=== PATIENT | male | born 1950 | race Caucasian/White ===

== ENCOUNTER 2022-06-23 16:21 | Observation (INO) | payer OTHER, SELFPAY ==
[2022-06-23] VITALS (28 sets, daily range): BP systolic 83–140; BP diastolic 47–69; PULSE 49–76; RESP 16; TEMP 36.7–36.9; O2SAT 92–99; BMI 19.8
--- NOTE | 2022-06-23 17:21 | CRLHL7_ITS ---
For Patients: As a result of the Cures Act, medical imaging exams and procedure reports are released immediately into your electronic medical record. You may view this report before your referring provider. If you have questions, please contact your health care provider. INDICATION: Pain TECHNIQUE: Three views left knee COMPARISON: None available FINDINGS: No definite acute fracture or dislocation. Minimal degenerative changes. Moderate-sized joint effusion. Severe arterial calcifications. 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 IMPRESSION: Moderate-sized knee joint effusion. Dictated by Ricky Parker MD @ 06/23/2022 6:35:11 PM (Electronically Signed)
[2022-06-23] MEDS: 0.9 % SODIUM CHLORIDE 1000 ml 1,000 ML IV (17:48)
[2022-06-23 17:57] LABS: Basophils Absolute Auto 0.02 K/uL (0.00-0.30); Basophils Percent Auto 0.3 % (0.0-3.0); Eosinophils Absolute Auto 0.05 K/uL (0.00-0.50); Eosinophils Percent Auto 0.9 % (0.0-7.0); Hematocrit 30.9 % (37.0-53.0); Hemoglobin* 10.2 gm/dL (13.5-17.5); Immature Granulocytes Abs Auto 0.01 K/uL (0.00-0.30); Immature Granulocytes Pct Auto 0.2 %; Lymphocytes Absolute Auto 1.36 K/uL (0.90-2.90); Lymphocytes Percent Auto 23.2 % (20-44); Mean Corpuscular HGB Conc 33 gm/dL (32-36); Mean Corpuscular Hemoglobin 34 pg (26-34); Mean Corpuscular Volume 103 fL (80-100); Monocytes Percent Auto 7.5 % (0.0-11.0); Neutrophils Absolute Auto 3.98 K/uL (1.7-7.0); Neutrophils Percent Auto 67.9 % (42.0-72.0); Platelet Count* 165 K/uL (140-440); RDW Coefficient of Variation % 15.7 % (11.5-15.5); Slide Review Reflex No; White Blood Count* 5.86 K/uL (4.50-11.00)
[2022-06-23 18:21] LABS: Chloride* 105 mmol/L (96-114); Potassium* 3.7 mmol/L (3.6-5.1); Sodium* 131 mmol/L (135-149)
[2022-06-23 18:24] LABS: Blood Urea Nitrogen* 10 mg/dL (7-30); Carbon Dioxide* 23 mmol/L (20-32); Creatinine* 1.2 mg/dL (0.5-1.5); Estimated Glomerular Filt Rate 65 ml/min; Ethanol* 0.08 % (0.01-0.03)
[2022-06-23 18:25] LABS: Calcium* 7.9 mg/dL (8.4-10.6); Glucose* 74 mg/dL (60-115)
--- NOTE | 2022-06-23 20:05 | ED.LOWEXIN ---
HPI - Extremity Injury (Lower) General Date Seen: 06/23/22 Chief Complaint: Extremity Pain/Injury, Lower Stated Complaint: Leg/Knee Injury Time Seen by Provider: 06/23/22 16:21 Source: patient Mode of arrival: wheelchair Limitations: no limitations History of Present Illness HPI Narrative: Patient is a 71-year-old gentleman presents here after he fell yesterday, he did kind of a splayed out while he was walking around, at the best times uses a walker to get around or a cane, he notices that he cannot bear weight on his left knee today, or any walking around he has noticed it swollen also. He has no previous history knee pain but he has a history of bad neuropathy in his feet and overall weakness, with history of falls quite often. He presents now for help, denies any other injury to his head neck or shoulders, only to his left lower leg MD complaint: knee injury and fall Onset (ago): day(s) Type of Injury: blunt Place: street/outdoors Severity: moderate Relieving factors: nothing Exacerbating factors: weight bearing, movement and palpation Context: fall Associated symptoms: snap/pop sensation and unable to bear weight Other symptoms: none Related Data Home Medications Medication Instructions Recorded Confirmed acetaminophen 500 mg tablet 1,000 mg PO TID 06/23/22 06/23/22 (Tylenol Extra Strength) Allergies Allergy/AdvReac Type Severity Reaction Status Date / Time No Known Drug Allergies Allergy Verified 06/23/22 16:43 Review of Systems Status of ROS: Reports: 10 or more systems reviewed and unremarkable except as noted in History and below PFSH PFS Social History Smoking Status: Current every day smoker What tobacco products do you use: cigarettes Do you use any of these nicotine containing products: None Second hand tobacco smoke exposure: No How often do you have a drink containing alcohol: 4 or more times a week How many standard drinks containing alcohol do you have on a typical day: 5 or 6 How often do you have six or more drinks on one occasion: Daily or almost daily AUDIT-C Alcohol total score: 10 Non-prescribed substance use: marijuana (any form) service: Yes Exam Narrative: Exam Narrative: On examination a little bit disheveled very thin gentleman but otherwise pleasant, pupils equal round reactive, neck is supple, chest is clear heart sounds are normal no evidence of injury over his head or neck, chest says wheezes noted bilaterally on expiration consistent with the COPD, he does tell me he is a smoker times 40 years. His heart sounds no clicks murmurs or gallops his abdomen is soft, there is no masses or guarding, his left hip moves for full range of motion, his right knee is very swollen he has range of motion from 0 at extension to approximately 30?, he is very sore with any sort of stress on the medial collateral ligament, the lateral seems normal, 2+ effusion is noted, nontender patella is noted popliteal fossa is nontender, he has scrape along his left ramon, that is nonsuturable, pulses are decreased bilaterally in his lower extremities to 1+, and there is some mild swelling noted. He was seemingly hypotensive on her 1st check here, and I reviewed he had been here in 2017 in the talked also about how he always is hypotensive any tells me whenever they check his blood pressures he is. Const: Vital Signs, click to edit/add: Vital Signs - 24 hr 06/23/22 16:38 06/23/22 17:41 06/23/22 17:45 Temperature 98.1 F Pulse Rate 49 L 50 L Pulse Rate [Right Pulse Oximeter] 58 L Respiratory Rate 16 Blood Pressure Blood Pressure [Le ft Upper Arm] 83/47 L Pulse Oximetry 98 98 99 Oxygen Delivery Me thod Room Air 06/23/22 18:00 06/23/22 18:01 06/23/22 18:15 Temperature Pulse Rate 51 L 50 L 51 L Pulse Rate [Right Pulse Oximeter] Respiratory Rate Blood Pressure 115/60 Blood Pressure [Le ft Upper Arm] Pulse Oximetry 96 95 97 Oxygen Delivery Me thod 06/23/22 18:30 06/23/22 18:32 06/23/22 18:45 Temperature Pulse Rate 52 L 57 L 56 L Pulse Rate [Right Pulse Oximeter] Respiratory Rate Blood Pressure 122/58 L Blood Pressure [Le ft Upper Arm] Pulse Oximetry 97 92 97 Oxygen Delivery Me thod 06/23/22 19:00 Temperature Pulse Rate 61 Pulse Rate [Right Pulse Oximeter] Respiratory Rate Blood Pressure Blood Pressure [Le ft Upper Arm] Pulse Oximetry 96 Oxygen Delivery Me thod Documenting provider has reviewed patient's vital signs: yes Course Reevaluation(s) Reevaluation #1: I saw the patient, discussed with him the fact that I do not think without bearing weight in the fact uses a walker at home he is going to be able to go home, I do think he has an acute internal derangement of his knee, the x-ray showed that there was some chondrocalcinosis, effusion, and a little agusto off the medial side which I suspect is the tear with a medial collateral ligament is a cannot rule out ACL tear also. I do think that he will need to come in with a knee immobilizer, and then likely transition to a penitentiary, his I just do not think he will be able to care for himself, we did give him some Percocet here, called the inpatient doctor and spoke to her. Dr. garcía accepted him, Vital Signs Vital signs: Initial Vital Signs Temperature 98.1 F 06/23/22 16:38 Temperature Source Oral 06/23/22 16:38 Pulse Rate 58 L 06/23/22 16:38 Pulse Rhythm Regular 06/23/22 16:38 Pulse Strength 3+ Normal 06/23/22 16:38 Respiratory Rate 16 06/23/22 16:38 Blood Pressure 83/47 L 06/23/22 16:38 Blood Pressure Mean 59 06/23/22 16:38 Blood Pressure Position Sitting 06/23/22 16:38 Pulse Oximetry 98 06/23/22 16:38 Oxygen Delivery Method Room Air 06/23/22 16:38 Vital Signs Temperature 98.1 F 06/23/22 16:38 Pulse Rate 58 L 06/23/22 16:38 Respiratory Rate 16 06/23/22 16:38 Blood Pressure 83/47 L 06/23/22 16:38 Pulse Oximetry 98 06/23/22 16:38 Oxygen Delivery Method Room Air 06/23/22 16:38 Temperature 98.1 F 06/23/22 16:38 Pulse Rate 61 06/23/22 19:00 Respiratory Rate 16 06/23/22 16:38 Blood Pressure 122/58 L 06/23/22 18:32 Pulse Oximetry 96 06/23/22 19:00 Oxygen Delivery Method Room Air 06/23/22 16:38 MDM - Extremity Injury (Lower) Differential Diagnosis Differential diagnosis: Likely ankle sprain and strain, acute internal derangement of knee and fracture of femur Medical Records Attestation: I reviewed the patient's medical records. Lab Data Attestation: I reviewed the patient's lab results. Labs: Lab Results 06/23/22 Range/Units 17:45 WBC 5.86 (4.50-11.00) K/uL RBC 3.00 L (4.30-5.90) m/uL Hgb 10.2 L (13.5-17.5) gm/dL Hct 30.9 L (37.0-53.0) % MCV 103 H (80-100) fL MCH 34 (26-34) pg MCHC 33 (32-36) gm/dL RDW Coeff of Nancy 15.7 H (11.5-15.5) % Plt Count 165 (140-440) K/uL Neut % (Auto) 67.9 (42.0-72.0) % Lymph % (Auto) 23.2 (20-44) % Gray % (Auto) 7.5 (0.0-11.0) % Eos % (Auto) 0.9 (0.0-7.0) % Baso % (Auto) 0.3 (0.0-3.0) % Neut # (Auto) 3.98 (1.7-7.0) K/uL Lymph # (Auto) 1.36 (0.90-2.90) K/uL Gray # (Auto) 0.40 (0.00-0.90) K/UL Eos # (Auto) 0.05 (0.00-0.50) K/uL Baso # (Auto) 0.02 (0.00-0.30) K/uL Sodium 131 L (135-149) mmol/L Potassium 3.7 (3.6-5.1) mmol/L Chloride 105 (96-114) mmol/L Carbon Dioxide 23 (20-32) mmol/L BUN 10 (7-30) mg/dL Creatinine 1.2 (0.5-1.5) mg/dL Estimated GFR 65 ml/min Glucose 74 (60-115) mg/dL Calcium 7.9 L (8.4-10.6) mg/dL Ethyl Alcohol 0.08 H (0.01-0.03) % Discharge Plan Discharge Clinical Impression: Acute internal derangement of knee, Neuropathy, Acute hyponatremia Patient Disposition: Admitted As Inpatient Condition: Stable
[2022-06-23] MEDS: OxyCODONE/APAP 5-325 TABLET 1 TAB PO (20:21)
[2022-06-23 20:24] LABS: SARS PCR* Negative SARS-CoV-2 (Negative)
--- NOTE | 2022-06-23 21:52 | P.IMHP_ITS ---
Hospitalist- H&P: HPI History of Present Illness Time Seen by Provider: 21:53 Date Seen: 06/23/22 Chief complaint: Leg/Knee Injury Narrative: Robbie Gage is a 71 year old male who hurt his right knee last night. He was walking to his [place]ep from the bar at 10pm when he stepped off the curb and went down to the ground. His right knee felt totally numb at the time. His girlfriend and another person helped get him up into his Jeep and then into his house. Knee swelled and looked red/purple. Pain shoots right down his ramon. He also has a couple of scrapes on his leg. He denies hitting his head or losing conciousness. Has difficulty getting around, even with walker. Can't walk more than a block at baseline. Review of Systems Status of ROS: Reports: 10 or more systems reviewed and unremarkable except as noted in History and below [facility] Medical History (Updated 06/23/22 @ 22:37 by Franchesca Vargas MD) Adrenal adenoma ?D35.00 - Benign neoplasm of unspecified adrenal gland (ICD-10) Cellulitis of penis (~2012) ?N48.22 - Cellulitis of corpus cavernosum and penis (ICD-10) COPD (chronic obstructive pulmonary disease) ?J44.9 - Chronic obstructive pulmonary disease, unspecified (ICD-10) Low back pain ?M54.50 - Low back pain, unspecified (ICD-10) Major depression ?F32.9 - Major depressive disorder, single episode, unspecified (ICD-10) Neuropathy ?G62.9 - Polyneuropathy, unspecified (ICD-10) Prostate cancer ?C61 - Malignant neoplasm of prostate (ICD-10) PTSD (post-traumatic stress disorder) ?F43.10 - Post-traumatic stress disorder, unspecified (ICD-10) Surgical History (Updated 06/23/22 @ 20:52 by Franchesca Vargas MD) H/O radical prostatectomy ?Z90.79 - Acquired absence of other genital organ(s) (ICD-10) History of ankle surgery (~09/04/11) ?Z98.890 - Other specified postprocedural states (ICD-10) Hx of colonoscopy (~2010) ?Z98.890 - Other specified postprocedural states (ICD-10) Hx of tonsillectomy ?Z90.89 - Acquired absence of other organs (ICD-10) Status post osteotomy (~1979) ?Z98.890 - Other specified postprocedural states (ICD-10) Family History (Updated 06/23/22 @ 20:54 by Franchesca Vargas MD) Brother Alcoholism and drug addiction in family Mother Alcoholism and drug addiction in family Throat cancer Sister Obesity Social History (Updated 06/23/22 @ 22:33 by Franchesca Vargas MD) Narrative: Lives with younger sister in a house. Smokes less than a pack of cigarettes per day. Drinks 3-4 beers per day. Had one beer with breakfast this morning (like he usually does). He does not remember the last time he went without alcohol for more than 24 hours. Smokes marijuana for anxiety/depression twice a week. FULL CODE. Highest level of school completed/degree received: 12th grade, no diploma Smoking Status: Current every day smoker What tobacco products do you use: cigarettes Do you use any of these nicotine containing products: None Second hand tobacco smoke exposure: No How often do you have a drink containing alcohol: 4 or more times a week How many standard drinks containing alcohol do you have on a typical day: 5 or 6 How often do you have six or more drinks on one occasion: Daily or almost daily AUDIT-C Alcohol total score: 10 Non-prescribed substance use: marijuana (any form) Non-prescribed substance use details: Use very seldom Caffeine: No service: Yes Meds Home Medications and Allergies Home Medications Medication Instructions Recorded Confirmed Type acetaminophen 500 mg tablet 1,000 mg PO TID 06/23/22 06/23/22 History (Tylenol Extra Strength) Home Medication Comments: Does not know medications. [facility] Allergies Allergy/AdvReac Type Severity Reaction Status Date / Time No Known Drug Allergies Allergy Verified 06/23/22 16:43 Exam Narrative: Exam Narrative: General: No acute distress. Awake alert oriented x3. No tremor. HEENT: Normocephalic atraumatic, pupils equally round and reactive to light and accommodation. Oropharynx clear. Mucous membranes are moist. No cervical lymphadenopathy, thyromegaly or carotid bruits. No JVD. Cardiovascular: Regular rate and rhythm. No murmurs, gallops, or rubs. Chest: No increased work of breathing. Prolonged expiratory phase, clear to auscultation, no crackles or wheezes. Abdomen: Bowel sounds present. Soft, nondistended, nontender. No hepatosplenomegaly or masses. Extremities: I removed the immobilizer and saw that his left knee is swollen, especially medially in tender to palpation in that area as well. Mild erythema without induration over the medial left knee. Linear abrasion extending from just below the left knee to a few inches above the ankle anteriomedially. No erythema or induration or drainage from this. Skin: As above. No jaundice, no pallor, no rashes. Const: Vital Signs, click to edit/add: Vital Signs - 24 hr 06/23/22 16:38 06/23/22 17:41 06/23/22 17:45 Temperature 98.1 F Pulse Rate 49 L 50 L Pulse Rate [Left R adial] Pulse Rate [Right Pulse Oximeter] 58 L Respiratory Rate 16 Blood Pressure Blood Pressure [Le ft Upper Arm] 83/47 L Blood Pressure [Ri ght Arm] Pulse Oximetry 98 98 99 Oxygen Delivery Me thod Room Air 06/23/22 18:00 06/23/22 18:01 06/23/22 18:15 Temperature Pulse Rate 51 L 50 L 51 L Pulse Rate [Left R adial] Pulse Rate [Right Pulse Oximeter] Respiratory Rate Blood Pressure 115/60 Blood Pressure [Le ft Upper Arm] Blood Pressure [Ri ght Arm] Pulse Oximetry 96 95 97 Oxygen Delivery Me thod 06/23/22 18:30 06/23/22 18:32 06/23/22 18:45 Temperature Pulse Rate 52 L 57 L 56 L Pulse Rate [Left R adial] Pulse Rate [Right Pulse Oximeter] Respiratory Rate Blood Pressure 122/58 L Blood Pressure [Le ft Upper Arm] Blood Pressure [Ri ght Arm] Pulse Oximetry 97 92 97 Oxygen Delivery Me thod 06/23/22 19:00 06/23/22 19:01 06/23/22 19:15 Temperature Pulse Rate 61 57 L 56 L Pulse Rate [Left R adial] Pulse Rate [Right Pulse Oximeter] Respiratory Rate Blood Pressure 127/68 Blood Pressure [Le ft Upper Arm] Blood Pressure [Ri ght Arm] Pulse Oximetry 96 98 97 Oxygen Delivery Me thod 06/23/22 19:30 06/23/22 19:32 06/23/22 19:45 Temperature Pulse Rate 56 L 67 72 Pulse Rate [Left R adial] Pulse Rate [Right Pulse Oximeter] Respiratory Rate Blood Pressure 120/59 L Blood Pressure [Le ft Upper Arm] Blood Pressure [Ri ght Arm] Pulse Oximetry 96 96 96 Oxygen Delivery Me thod 06/23/22 20:00 06/23/22 20:02 06/23/22 20:15 Temperature Pulse Rate 76 73 74 Pulse Rate [Left R adial] Pulse Rate [Right Pulse Oximeter] Respiratory Rate Blood Pressure 140/69 H Blood Pressure [Le ft Upper Arm] Blood Pressure [Ri ght Arm] Pulse Oximetry 97 94 95 Oxygen Delivery Me thod 06/23/22 20:30 06/23/22 20:32 06/23/22 20:45 Temperature Pulse Rate 68 70 72 Pulse Rate [Left R adial] Pulse Rate [Right Pulse Oximeter] Respiratory Rate Blood Pressure 119/57 L Blood Pressure [Le ft Upper Arm] Blood Pressure [Ri ght Arm] Pulse Oximetry 94 95 95 Oxygen Delivery Me thod 06/23/22 21:09 06/23/22 21:23 Temperature 98.4 F Pulse Rate Pulse Rate [Left R adial] 57 L Pulse Rate [Right Pulse Oximeter] Respiratory Rate 16 Blood Pressure Blood Pressure [Le ft Upper Arm] Blood Pressure [Ri ght Arm] 113/54 L Pulse Oximetry 99 99 Oxygen Delivery Me thod Room Air Room Air Hospitalist - H&P: Result Labs Labs: Short CBC 06/23/22 Range/Units 17:45 WBC 5.86 (4.50-11.00) K/uL Hgb 10.2 L (13.5-17.5) gm/dL Hct 30.9 L (37.0-53.0) % Plt Count 165 (140-440) K/uL BMP 06/23/22 17:45 Sodium 131 L Potassium 3.7 Chloride 105 Carbon Dioxide 23 BUN 10 Creatinine 1.2 Glucose 74 Calcium 7.9 L Ordering Physician: Carlos Live M.D. Date of Service: 06/23/22 Procedure(s): XR knee LT 3V Accession Number(s): [id number] cc: Carlos Live M.D.; Abimael Rm M.D.~ For Patients: As a result of the 21st Century Cures Act, medical imaging exams and procedure reports are released immediately into your electronic medical record. You may view this report before your referring provider. If you have questions, please contact your health care provider. INDICATION: Pain TECHNIQUE: Three views left knee COMPARISON: None available FINDINGS: No definite acute fracture or dislocation. Minimal degenerative changes. Moderate-sized joint effusion. Severe arterial calcifications. 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 IMPRESSION: Moderate-sized knee joint effusion. Dictated by Ricky Parker MD @ 06/23/2022 6:35:11 PM (Electronically Signed) Assessment and Plan Assessment and plan (1) Acute internal derangement of knee: Status: Acute (2) Fall: Status: Acute (3) Hyponatremia: Problem comment: Mild, asymptomatic. Possibly secondary to alcohol use or SSRI use. Recheck in the morning. Status: Acute (4) COPD (chronic obstructive pulmonary disease): Problem comment: On Albuterol and Symbicort outpatient Status: Acute Plan This is a 71-year-old male who had a fall yesterday evening to which it is likely that alcohol contributed. He injured his left knee and is unable to ambulate. He uses a walker and has poor functional status at baseline, so he may need a long-term facility for rehab. Admit for observation with oral pain medication, PT and OT consults. May also benefit from Ortho taking a look at the plain film. Continue knee immobilizer for the time being. He uses alcohol chronically and has some red flag behaviors such as drinking a beer every morning. Although he says his last beer was this morning, his medical blood alcohol level was still 0.08% by for almost 6:00 p.m. this evening which makes me think that he drinks much more than he is letting on. I have started him on a CIWA protocol. He has mild hyponatremia, but this is asymptomatic. I suspect this is likely at least in part due to alcohol use and may also be secondary to SSRI use and depression. His medications are unclear as he does not know them and [facility] not able to get information at this hour. Will need to reconcile is medications tomorrow. He appears to be at his baseline for respiratory status and I will order p.r.n. DuoNebs until we can get his medications reconciled.
[2022-06-23] MEDS: OXYCODONE 5 MG TABLET PO (22:13)
[2022-06-24] VITALS (8 sets, daily range): BP systolic 104–137; BP diastolic 55–63; PULSE 53–78; RESP 16–18; TEMP 36.5–37; O2SAT 93–100
[2022-06-24] MEDS: OXYCODONE 5 MG TABLET PO ×5 (02:25→20:35)
--- NOTE | 2022-06-24 05:37 | PC.NURSE ---
Shift note: Pt complained of weakness and pain to the knees and unable walk. Uses urinal. Pain has been rated at 10 and PRN Oxycodone given. Vitally stable. Pt had adequate sleep.
[2022-06-24 06:12] LABS: Barbiturate Screen Urine Negative (Negative); Benzodiazepines Screen Urine Negative (Negative); Methadone Screen Urine Negative (Negative); Opiate Screen Urine Negative (Negative); Phencyclidine Screen Urine Negative (Negative); Tricyclic Antidepressant Urine Negative (Negative)
[2022-06-24 06:13] LABS: Amphetamine Screen Urine POSITIVE (Negative); Cannabinoid Screen Urine POSITIVE (Negative); Cocaine Screen Urine POSITIVE (Negative); Methamphetamines Screen Urine POSITIVE (Negative)
[2022-06-24 06:14] LABS: Oxycodone Screen Urine POSITIVE (Negative)
[2022-06-24 07:07] LABS: Chloride* 106 mmol/L (96-114)
[2022-06-24 07:08] LABS: Potassium* 3.8 mmol/L (3.6-5.1); Sodium* 133 mmol/L (135-149)
[2022-06-24 07:10] LABS: Est. Creatinine Clearance* 64.38; Estimated Glomerular Filt Rate 81 ml/min
[2022-06-24 07:11] LABS: Blood Urea Nitrogen* 11 mg/dL (7-30); Calcium* 7.3 mg/dL (8.4-10.6); Carbon Dioxide* 26 mmol/L (20-32); Glucose* 90 mg/dL (60-115)
--- NOTE | 2022-06-24 08:15 | CRLHL7_ITS ---
For Patients: As a result of the Cures Act, medical imaging exams and procedure reports are released immediately into your electronic medical record. You may view this report before your referring provider. If you have questions, please contact your health care provider. Indication: Leg pain Technique: Two views left femur Comparison: Left knee 06/23/2022 Findings: Suprapatellar joint effusion. No fracture. Vascular calcifications. No femoral neck fracture. Postop changes to the prostate. Impression: No sign of acute osseous injury. Dictated by Roberto Caballero MD @ 06/24/2022 9:30:25 AM (Electronically Signed)
--- NOTE | 2022-06-24 08:16 | CRLHL7_ITS ---
For Patients: As a result of the Century Cures Act, medical imaging exams and procedure reports are released immediately into your electronic medical record. You may view this report before your referring provider. If you have questions, please contact your health care provider. Indication: Fall, pain Technique: Two views left tibia and fibula Comparison: Left knee 06/23/2022 Findings: Vascular calcifications. No fracture. Chondrocalcinosis at the knee. Mortise intact. Impression: No sign of acute osseous injury. Dictated by Roberto Caballero MD @ 06/24/2022 9:29:06 AM (Electronically Signed)
[2022-06-24] MEDS: THIAMINE 100 MG TABLET 250 MG PO ×2 (09:24→20:36)
[2022-06-24] MEDS: FOLIC ACID 1 MG TABLET PO (09:24)
[2022-06-24] MEDS: MULTIVITAMIN/MINERALS 1 TABLET 1 TAB PO (09:24)
[2022-06-24] MEDS: SODIUM CHLORIDE 0.9 % (FLUSH) 10 ML SYRINGE 5 ML IVF ×2 (09:25→20:36)
--- NOTE | 2022-06-24 11:40 | CRLHL7_ITS ---
For Patients: As a result of the Century Cures Act, medical imaging exams and procedure reports are released immediately into your electronic medical record. You may view this report before your referring provider. If you have questions, please contact your health care provider. INDICATION: Left knee pain. Fall. Unable to walk. COMPARISON: 06/23/2022 radiographs. TECHNIQUE: CT left knee without contrast. FINDINGS: Lipohemarthrosis. Acute comminuted nondisplaced fracture of the posterior aspect of the tibial plateau at the PCL insertion (series 8, image 176). Chondrocalcinosis. Mild medial compartment joint space narrowing. Subcutaneous edema. Vascular calcifications. IMPRESSION: Acute comminuted fracture of the posterior aspect of the tibial plateau at the PCL insertion which could be due to PCL avulsion fracture. Findings discussed with Dr. Malin at 2:20 PM on 06/24/22. Please note that all CT scans at this facility use dose modulation, iterative reconstruction, and/or weight-based dosing when appropriate to reduce radiation dose to as low as reasonably achievable. Dictated by Roberto Hamilton MD @ 06/24/2022 2:27:12 PM (Electronically Signed)
--- NOTE | 2022-06-24 15:29 | PM.IMPN1 ---
Progress Note: A&P Assessment and plan (1) Tibial plateau fracture, left: Problem details: PCL avulsion fracture. Ortho recommended non weight bearing until this heals. He can stay in a knee immobilizer or bend the knee at 20-30 degrees whenever is more comfortable for him. He needs to follow-up with orthopedics in 7-10 days. Status: Acute (2) Fall: Problem details: He has neuropathy and other factors that make a fall likely. When he has recovered enough from his knee fracture he would likely benefit from physical therapy. Status: Acute (3) Alcohol use disorder: Problem details: He is at high risk for alcohol withdrawal. He is currently on the withdrawal protocol but has not required lorazepam. Status: Acute (4) COPD (chronic obstructive pulmonary disease): Problem details: On Albuterol and Symbicort outpatient Status: Acute Time Spent With Patient Total time spent: 60 minutes over half the time was spent in counseling and coordinating care. Subjective Time Seen by Provider: 15:29 Date Seen: 06/24/22 Interval history: Subjective: Robbie continues to have left-sided knee pain. He is nonweightbearing. He has been taking regular oxycodone for his pain. We did discuss the case with Dr. Casper and ortho recommends nonweightbearing until this heals and follow-up in ortho clinic in 7-10 days. He can be a knee immobilizer or he can keep the knee slightly bent to 20-30 degrees whenever is more comfortable for him. Did discuss with Robbie options for after the hospital. The safest best option for him would be to go to a senior living facility. He adamantly refuses to do that. He says he has a wheelchair at home and a friend who can stay with him. Exam Const: Vital Signs, click to edit/add: Vital Signs - 24 hr 06/23/22 16:38 06/23/22 17:41 06/23/22 17:45 Temperature 98.1 F Pulse Rate 49 L 50 L Pulse Rate [Left R adial] Pulse Rate [Right Pulse Oximeter] 58 L Respiratory Rate 16 Blood Pressure Blood Pressure [Le ft Upper Arm] 83/47 L Blood Pressure [Ri ght Arm] Pulse Oximetry 98 98 99 Oxygen Delivery Me thod Room Air 06/23/22 18:00 06/23/22 18:01 06/23/22 18:15 Temperature Pulse Rate 51 L 50 L 51 L Pulse Rate [Left R adial] Pulse Rate [Right Pulse Oximeter] Respiratory Rate Blood Pressure 115/60 Blood Pressure [Le ft Upper Arm] Blood Pressure [Ri ght Arm] Pulse Oximetry 96 95 97 Oxygen Delivery Al thod 06/23/22 18:30 06/23/22 18:32 06/23/22 18:45 Temperature Pulse Rate 52 L 57 L 56 L Pulse Rate [Left R adial] Pulse Rate [Right Pulse Oximeter] Respiratory Rate Blood Pressure 122/58 L Blood Pressure [Le ft Upper Arm] Blood Pressure [Ri ght Arm] Pulse Oximetry 97 92 97 Oxygen Delivery Al thod 06/23/22 19:00 06/23/22 19:01 06/23/22 19:15 Temperature Pulse Rate 61 57 L 56 L Pulse Rate [Left R adial] Pulse Rate [Right Pulse Oximeter] Respiratory Rate Blood Pressure 127/68 Blood Pressure [Le ft Upper Arm] Blood Pressure [Ri ght Arm] Pulse Oximetry 96 98 97 Oxygen Delivery Al thod 06/23/22 19:30 06/23/22 19:32 06/23/22 19:45 Temperature Pulse Rate 56 L 67 72 Pulse Rate [Left R adial] Pulse Rate [Right Pulse Oximeter] Respiratory Rate Blood Pressure 120/59 L Blood Pressure [Le ft Upper Arm] Blood Pressure [Ri ght Arm] Pulse Oximetry 96 96 96 Oxygen Delivery Al thod 06/23/22 20:00 06/23/22 20:02 06/23/22 20:15 Temperature Pulse Rate 76 73 74 Pulse Rate [Left R adial] Pulse Rate [Right Pulse Oximeter] Respiratory Rate Blood Pressure 140/69 H Blood Pressure [Le ft Upper Arm] Blood Pressure [Ri ght Arm] Pulse Oximetry 97 94 95 Oxygen Delivery Al thod 06/23/22 20:30 06/23/22 20:32 06/23/22 20:45 Temperature Pulse Rate 68 70 72 Pulse Rate [Left R adial] Pulse Rate [Right Pulse Oximeter] Respiratory Rate Blood Pressure 119/57 L Blood Pressure [Le ft Upper Arm] Blood Pressure [Ri ght Arm] Pulse Oximetry 94 95 95 Oxygen Delivery Al thod 06/23/22 21:09 06/23/22 21:23 06/23/22 21:54 Temperature 98.4 F Pulse Rate Pulse Rate [Left R adial] 57 L Pulse Rate [Right Pulse Oximeter] Respiratory Rate 16 Blood Pressure Blood Pressure [Le ft Upper Arm] Blood Pressure [Ri ght Arm] 113/54 L Pulse Oximetry 99 99 [facility] 06/23/22 22:27 06/23/22 22:28 06/23/22 23:12 Temperature 98.4 F 98.4 F Pulse Rate Pulse Rate [Left R adial] 67 67 67 Pulse Rate [Right Pulse Oximeter] Respiratory Rate 16 16 16 Blood Pressure Blood Pressure [Le ft Upper Arm] Blood Pressure [Ri ght Arm] 123/67 123/67 Pulse Oximetry 99 99 [facility] Room Air 06/23/22 23:15 06/24/22 02:52 06/24/22 07:00 Temperature 97.7 F Pulse Rate Pulse Rate [Left R adial] 53 L 61 Pulse Rate [Right Pulse Oximeter] Respiratory Rate 16 16 Blood Pressure Blood Pressure [Le ft Upper Arm] Blood Pressure [Ri ght Arm] 115/62 Pulse Oximetry 99 93 [facility] Room Air 06/24/22 07:00 06/24/22 07:50 06/24/22 07:50 Temperature 97.8 F 97.8 F Pulse Rate Pulse Rate [Left R adial] 61 61 Pulse Rate [Right Pulse Oximeter] Respiratory Rate 16 18 18 Blood Pressure Blood Pressure [Le ft Upper Arm] Blood Pressure [Ri ght Arm] 121/61 121/61 Pulse Oximetry 95 95 95 [facility] Room Air Room Air 06/24/22 11:45 Temperature 97.8 F Pulse Rate Pulse Rate [Left R adial] 65 Pulse Rate [Right Pulse Oximeter] Respiratory Rate 18 Blood Pressure Blood Pressure [Le ft Upper Arm] Blood Pressure [Ri ght Arm] 128/55 L Pulse Oximetry 100 Oxygen Delivery Al thod Room Air Cardiovascular regular rate and rhythm without murmur gallop or rub. Lungs are clear to auscultation bilaterally. Abdomen positive bowel sounds soft nontender. Left leg is tender from the femur to the ankle. It is especially tender over the knee over the patella and the lateral aspects of the knee. There is some significant swelling. There is no redness or warmth. Labs Labs: Laboratory Results - last 24 hr 04/06/23/22 06/24/22 17:45 19:33 05:45 WBC 5.86 RBC 3.00 L Hgb 10.2 L Hct 30.9 L MCV 103 H MCH 34 MCHC 33 RDW Coeff of Nancy 15.7 H Plt Count 165 Neut % (Auto) 67.9 Lymph % (Auto) 23.2 [place] % (Auto) 7.5 Eos % (Auto) 0.9 Baso % (Auto) 0.3 Neut # (Auto) 3.98 Lymph # (Auto) 1.36 [place] # (Auto) 0.40 Eos # (Auto) 0.05 Baso # (Auto) 0.02 Sodium 131 L Potassium 3.7 Chloride 105 Carbon Dioxide 23 BUN 10 Creatinine 1.2 Estimated Creat Clear Estimated GFR 65 Glucose 74 Calcium 7.9 L Urine Opiates Screen Negative Ur Oxycodone Screen POSITIVE A* Urine Methadone Screen Negative Ur Propoxyphene Screen Negative Ur Barbiturates Screen Negative U Tricyclic Antidepress Negative Ur Phencyclidine Scrn Negative Ur Amphetamines Screen POSITIVE A* U Methamphetamines Scrn POSITIVE A* U Benzodiazepines Scrn Negative Urine Cocaine Screen POSITIVE A* U Marijuana (THC) Screen POSITIVE A* Ur Drug Screen Comment See Note Ethyl Alcohol 0.08 H SARS-CoV-2 (PCR) Negative SARS-CoV-2 06/24/22 06:19 WBC RBC Hgb Hct MCV MCH MCHC RDW Coeff of Nancy Plt Count Neut % (Auto) Lymph % (Auto) [place] % (Auto) Eos % (Auto) Baso % (Auto) Neut # (Auto) Lymph # (Auto) [place] # (Auto) Eos # (Auto) Baso # (Auto) Sodium 133 L Potassium 3.8 Chloride 106 Carbon Dioxide 26 BUN 11 Creatinine 1.0 Estimated Creat Clear 64.38 Estimated GFR 81 Glucose 90 Calcium 7.3 L Urine Opiates Screen Ur Oxycodone Screen Urine Methadone Screen Ur Propoxyphene Screen Ur Barbiturates Screen U Tricyclic Antidepress Ur Phencyclidine Scrn Ur Amphetamines Screen U Methamphetamines Scrn U Benzodiazepines Scrn Urine Cocaine Screen U Marijuana (THC) Screen Ur Drug Screen Comment Ethyl Alcohol SARS-CoV-2 (PCR) Imaging CT of the knee: Radiologist's impression: INDICATION: Left knee pain. Fall. Unable to walk. COMPARISON: 06/23/2022 radiographs. TECHNIQUE: CT left knee without contrast. FINDINGS: Lipohemarthrosis. Acute comminuted nondisplaced fracture of the posterior aspect of the tibial plateau at the PCL insertion (series 8, image 176). Chondrocalcinosis. Mild medial compartment joint space narrowing. Subcutaneous edema. Vascular calcifications. IMPRESSION: Acute comminuted fracture of the posterior aspect of the tibial plateau at the PCL insertion which could be due to PCL avulsion fracture. Findings discussed with Dr. Malin at 2:20 PM on 06/24/22. Please note that all CT scans at this facility use dose modulation, iterative reconstruction, and/or weight-based dosing when appropriate to reduce radiation dose to as low as reasonably achievable. Dictated by Roberto Hamilton MD @ 06/24/2022 2:27:12 PM (Electronically Signed)
--- NOTE | 2022-06-24 15:40 | P.ORCN_ITS ---
History of Present Illness HPI Time Seen by Provider: 15:25 Date Seen: 06/24/22 Consult date: 06/24/22 Requesting physician: Jadyn Ayoub Consult reason: joint pain and fracture Chief complaint: Leg/Knee Injury Narrative: Robbie is a pleasant 71 year-old male with left knee pain x 1 day. Patient fell from a standing height yesterday. Today, he complains of severe, diffuse left anterior knee pain. Unable to bear weight. Patient feels most comfortable with his knee in slight flexion (20-23 degrees). At baseline, Robbie uses a walker or a cane. Associated symptoms include: left knee swelling. Denies previous left knee injury. Review of Systems Narrative: Admits: swelling. Denies: chest pain, SOB, fever, chills, numbness/tingling distally. PFSH PFSH Medical History Adrenal adenoma ?D35.00 - Benign neoplasm of unspecified adrenal gland (ICD-10) Alcohol use disorder ?F10.90 - Alcohol use, unspecified, uncomplicated (ICD-10) Cellulitis of penis (~2012) ?N48.22 - Cellulitis of corpus cavernosum and penis (ICD-10) COPD (chronic obstructive pulmonary disease) ?J44.9 - Chronic obstructive pulmonary disease, unspecified (ICD-10) Low back pain ?M54.50 - Low back pain, unspecified (ICD-10) Major depression ?F32.9 - Major depressive disorder, single episode, unspecified (ICD-10) Neuropathy ?G62.9 - Polyneuropathy, unspecified (ICD-10) Prostate cancer ?C61 - Malignant neoplasm of prostate (ICD-10) PTSD (post-traumatic stress disorder) ?F43.10 - Post-traumatic stress disorder, unspecified (ICD-10) Surgical History H/O radical prostatectomy ?Z90.79 - Acquired absence of other genital organ(s) (ICD-10) History of ankle surgery (~09/04/11) ?Z98.890 - Other specified postprocedural states (ICD-10) Hx of colonoscopy (~2010) ?Z98.890 - Other specified postprocedural states (ICD-10) Hx of tonsillectomy ?Z90.89 - Acquired absence of other organs (ICD-10) Status post osteotomy (~1979) ?Z98.890 - Other specified postprocedural states (ICD-10) Family History Brother Alcoholism and drug addiction in family Mother Alcoholism and drug addiction in family Throat cancer Sister Obesity Social History Narrative: Lives with younger sister in a house. Smokes less than a pack of cigarettes per day. Drinks 3-4 beers per day. Had one beer with breakfast this morning (like he usually does). He does not remember the last time he went without alcohol for more than 24 hours. Smokes marijuana for anxiety/depression twice a week. FULL CODE. Highest level of school completed/degree received: 12th grade, no diploma Smoking Status: Current every day smoker What tobacco products do you use: cigarettes Do you use any of these nicotine containing products: None Second hand tobacco smoke exposure: No How often do you have a drink containing alcohol: 4 or more times a week How many standard drinks containing alcohol do you have on a typical day: 5 or 6 How often do you have six or more drinks on one occasion: Daily or almost daily AUDIT-C Alcohol total score: 10 Non-prescribed substance use: marijuana (any form) Non-prescribed substance use details: Use very seldom Caffeine: No service: Yes Meds Home Medications and Allergies Home Medications Medication Instructions Recorded Confirmed Type atenolol 50 mg tablet 25 mg PO DAILY 06/24/22 06/24/22 History celecoxib 100 mg capsule (Celebrex) 100 mg PO BID 06/24/22 06/24/22 History cholecalciferol (vitamin D3) 25 25 mcg PO HS 06/24/22 06/24/22 History mcg (1,000 unit) capsule duloxetine 60 mg capsule,delayed 60 mg PO DAILY 06/24/22 06/24/22 History release folic acid 1 mg tablet 1 mg PO DAILY 06/24/22 06/24/22 History olanzapine 2.5 mg tablet 2.5 mg PO QHS 06/24/22 06/24/22 History omeprazole 20 mg capsule,delayed 40 mg PO BID 06/24/22 06/24/22 History release trazodone 50 mg tablet 150 mg PO QHS 06/24/22 06/24/22 History Allergies Allergy/AdvReac Type Severity Reaction Status Date / Time No Known Drug Allergies Allergy Verified 06/23/22 16:43 Ortho Exam Narrative Exam Narrative: Left knee exam: Mild effusion. A tubigrip was left in place for this exam, per request of the patient. Severe tenderness to light palpation diffusely throughout knee. Pain is well managed with knee in slight flexion (20 degrees). ROM greater than 20 degrees deferred. Ice is being utilized. CMS intact. Const Vital Signs, click to edit/add: Vital Signs - 24 hr 06/23/22 16:38 06/23/22 17:41 06/23/22 17:45 Temperature 98.1 F Pulse Rate 49 L 50 L Pulse Rate [Left Radial] Pulse Rate [Right Pulse Oximeter] 58 L Respiratory Rate 16 Blood Pressure Blood Pressure [Left Upper Arm] 83/47 L Blood Pressure [Right Arm] Pulse Oximetry 98 98 99 Oxygen Delivery Method Room Air 06/23/22 18:00 06/23/22 18:01 06/23/22 18:15 Temperature Pulse Rate 51 L 50 L 51 L Pulse Rate [Left Radial] Pulse Rate [Right Pulse Oximeter] Respiratory Rate Blood Pressure 115/60 Blood Pressure [Left Upper Arm] Blood Pressure [Right Arm] Pulse Oximetry 96 95 97 Oxygen Delivery Method 06/23/22 18:30 06/23/22 18:32 06/23/22 18:45 Temperature Pulse Rate 52 L 57 L 56 L Pulse Rate [Left Radial] Pulse Rate [Right Pulse Oximeter] Respiratory Rate Blood Pressure 122/58 L Blood Pressure [Left Upper Arm] Blood Pressure [Right Arm] Pulse Oximetry 97 92 97 Oxygen Delivery Method 06/23/22 19:00 06/23/22 19:01 06/23/22 19:15 Temperature Pulse Rate 61 57 L 56 L Pulse Rate [Left Radial] Pulse Rate [Right Pulse Oximeter] Respiratory Rate Blood Pressure 127/68 Blood Pressure [Left Upper Arm] Blood Pressure [Right Arm] Pulse Oximetry 96 98 97 Oxygen Delivery Method 06/23/22 19:30 06/23/22 19:32 06/23/22 19:45 Temperature Pulse Rate 56 L 67 72 Pulse Rate [Left Radial] Pulse Rate [Right Pulse Oximeter] Respiratory Rate Blood Pressure 120/59 L Blood Pressure [Left Upper Arm] Blood Pressure [Right Arm] Pulse Oximetry 96 96 96 Oxygen Delivery Method 06/23/22 20:00 06/23/22 20:02 06/23/22 20:15 Temperature Pulse Rate 76 73 74 Pulse Rate [Left Radial] Pulse Rate [Right Pulse Oximeter] Respiratory Rate Blood Pressure 140/69 H Blood Pressure [Left Upper Arm] Blood Pressure [Right Arm] Pulse Oximetry 97 94 95 Oxygen Delivery Method 06/23/22 20:30 06/23/22 20:32 06/23/22 20:45 Temperature Pulse Rate 68 70 72 Pulse Rate [Left Radial] Pulse Rate [Right Pulse Oximeter] Respiratory Rate Blood Pressure 119/57 L Blood Pressure [Left Upper Arm] Blood Pressure [Right Arm] Pulse Oximetry 94 95 95 Oxygen Delivery Method 06/23/22 21:09 06/23/22 21:23 06/23/22 21:54 Temperature 98.4 F Pulse Rate Pulse Rate [Left Radial] 57 L Pulse Rate [Right Pulse Oximeter] Respiratory Rate 16 Blood Pressure Blood Pressure [Left Upper Arm] Blood Pressure [Right Arm] 113/54 L Pulse Oximetry 99 99 99 Oxygen Delivery Method Room Air Room Air 06/23/22 22:27 06/23/22 22:28 06/23/22 23:12 Temperature 98.4 F 98.4 F Pulse Rate Pulse Rate [Left Radial] 67 67 67 Pulse Rate [Right Pulse Oximeter] Respiratory Rate 16 16 16 Blood Pressure Blood Pressure [Left Upper Arm] Blood Pressure [Right Arm] 123/67 123/67 Pulse Oximetry 99 99 Oxygen Delivery Method Room Air Room Air 06/23/22 23:15 06/24/22 02:52 06/24/22 07:00 Temperature 97.7 F Pulse Rate Pulse Rate [Left Radial] 53 L 61 Pulse Rate [Right Pulse Oximeter] Respiratory Rate 16 16 Blood Pressure Blood Pressure [Left Upper Arm] Blood Pressure [Right Arm] 115/62 Pulse Oximetry 99 93 Oxygen Delivery Method Room Air Room Air 06/24/22 07:00 06/24/22 07:50 06/24/22 07:50 Temperature 97.8 F 97.8 F Pulse Rate Pulse Rate [Left Radial] 61 61 Pulse Rate [Right Pulse Oximeter] Respiratory Rate 16 18 18 Blood Pressure Blood Pressure [Left Upper Arm] Blood Pressure [Right Arm] 121/61 121/61 Pulse Oximetry 95 95 95 Oxygen Delivery Method Room Air Room Air Room Air 06/24/22 11:45 Temperature 97.8 F Pulse Rate Pulse Rate [Left Radial] 65 Pulse Rate [Right Pulse Oximeter] Respiratory Rate 18 Blood Pressure Blood Pressure [Left Upper Arm] Blood Pressure [Right Arm] 128/55 L Pulse Oximetry 100 Oxygen Delivery Method Room Air Results Labs Labs: Laboratory Results - last 48 hr 06/23/22 06/23/22 06/24/22 17:45 19:33 05:45 WBC 5.86 RBC 3.00 L Hgb 10.2 L Hct 30.9 L MCV 103 H MCH 34 MCHC 33 RDW Coeff of Nancy 15.7 H Plt Count 165 Neut % (Auto) 67.9 Lymph % (Auto) 23.2 [place] % (Auto) 7.5 Eos % (Auto) 0.9 Baso % (Auto) 0.3 Neut # (Auto) 3.98 Lymph # (Auto) 1.36 [place] # (Auto) 0.40 Eos # (Auto) 0.05 Baso # (Auto) 0.02 Sodium 131 L Potassium 3.7 Chloride 105 Carbon Dioxide 23 BUN 10 Creatinine 1.2 Estimated Creat Clear Estimated GFR 65 Glucose 74 Calcium 7.9 L Urine Opiates Screen Negative Ur Oxycodone Screen POSITIVE A* Urine Methadone Screen Negative Ur Propoxyphene Screen Negative Ur Barbiturates Screen Negative U Tricyclic Antidepress Negative Ur Phencyclidine Scrn Negative Ur Amphetamines Screen POSITIVE A* U Methamphetamines Scrn POSITIVE A* U Benzodiazepines Scrn Negative Urine Cocaine Screen POSITIVE A* U Marijuana (THC) Screen POSITIVE A* Ur Drug Screen Comment See Note Ethyl Alcohol 0.08 H SARS-CoV-2 (PCR) Negative SARS-CoV-2 06/24/22 06:19 WBC RBC Hgb Hct MCV MCH MCHC RDW Coeff of Nancy Plt Count Neut % (Auto) Lymph % (Auto) [place] % (Auto) Eos % (Auto) Baso % (Auto) Neut # (Auto) Lymph # (Auto) [place] # (Auto) Eos # (Auto) Baso # (Auto) Sodium 133 L Potassium 3.8 Chloride 106 Carbon Dioxide 26 BUN 11 Creatinine 1.0 Estimated Creat Clear 64.38 Estimated GFR 81 Glucose 90 Calcium 7.3 L Urine Opiates Screen Ur Oxycodone Screen Urine Methadone Screen Ur Propoxyphene Screen Ur Barbiturates Screen U Tricyclic Antidepress Ur Phencyclidine Scrn Ur Amphetamines Screen U Methamphetamines Scrn U Benzodiazepines Scrn Urine Cocaine Screen U Marijuana (THC) Screen Ur Drug Screen Comment Ethyl Alcohol SARS-CoV-2 (PCR) Diagnostic results Knee CT: report reviewed and image reviewed (Left knee CT dated 06/24/22 shows: an acute comminuted fracture of the posterior aspect of the tibial plateau at the PCL insertion. Also mild-moderate lipohemarthrosis.) Assessment and Plan Assessment and plan (1) Acute internal derangement of knee: Problem comment: Closed treatment of a closed, acute, comminuted, nondisplaced fracture of the tibial plateau. DOI: 06/24/22. Status: Acute Assessment and Plan: - Patient will remain non-weightbearing and utilize his wheelchair daily. Knee immobilizer use as tolerated daily, however Robbie reports his knee is more comfortable in slight flexion. It is okay to remove the knee immobilizer if more comfortable. Pain management per Hospitalist's recommendation. Patient has a strong desire to remain at home. He will likely require outpatient PT and OT. Orthopedics will provide that referral once Robbie follows-up in 7-10 days at our Orthopedic clinic. In the meantime, I recommend he ice, rest and elevate frequently. Continue to wear tubigrip daily. Also considered an aspiration, however swelling is quite minimal and this lipohemarthrosis would likely return shortly post-aspiration. (2) Fall: Problem comment: He has neuropathy and other factors that make a fall likely. When he has recovered enough from his knee fracture he would likely benefit from physical therapy. Status: Acute Total time spent: Total time spent is greater than 50% in coordination of care (as documented) at patient's floor/unit and/or counseling patient: (3) Hyponatremia: Problem comment: Mild, asymptomatic. Possibly secondary to alcohol use or SSRI use. Recheck in the morning. Status: Acute Total time spent: Total time spent is greater than 50% in coordination of care (as documented) at patient's floor/unit and/or counseling patient: (4) COPD (chronic obstructive pulmonary disease): Problem comment: On Albuterol and Symbicort outpatient Status: Acute Total time spent: Total time spent is greater than 50% in coordination of care (as documented) at patient's floor/unit and/or counseling patient:
--- NOTE | 2022-06-24 16:17 | PC.SOCIAL ---
Discharge plan: Met with pt regarding d/c plan. Pt states he lives with his sister in a one level double wide trailer. Pt has a ramp to enter and a walker and wheelchair for use at home. Pt's bathroom has shower bars for safety. Pt states he has an ex- and friends who are planning to assist him at home when his sister is at work, so he will have someone available to help whenever needed. Pt refuses retirement placement stating he has been to a facility before and it was not a good experience. Pt has had [facility] providing PT/OT services at home and would want them to be the home care provider if ordered at discharge. Pt states his friends/family will provide meals and do housekeeping as needed and has no concerns about returning hoem at discharge. Pt is aware of how to contact social studies teacher if additional resources are needed.
--- NOTE | 2022-06-24 18:42 | PC.NURSE ---
End of shift summary note: Pt is alert and oriented, pleasant. Vitals stable, on RA. C/o 10/10 pain to L knee, stating PRN Oxy can help can pain down to 6/10 and give him some rest. Pt appearing comfortable in bed. PRN Oxy order increased from 5mg to 5-10mg, tolerating. Tolerating diet, drinking fluids. Voiding fuad urine into urinal, more fluids encouraged, pt aware. Pt up to chair today, up to and from WC as well for XR of LLE and for CT to LLE, pt updated on CT results by provider. Home meds starting tonight per provider's orders. Consult to ortho today, PA saw pt at bedside. Pt NWB to LLE per hospitalist at this time. Tubi local driver to L knee and air cast to L ankle for further support. Stand and pivots w/ Ax1-2, in bed now. CIWA 1, 0, and 0. Pt has call light within reach and uses appropriately.
[2022-06-24] MEDS: DULOXETINE 30 MG CAPSULE DR 60 MG PO (20:35)
[2022-06-24] MEDS: OMEPRAZOLE 20 MG CAPSULE DR 40 MG PO (20:35)
[2022-06-24] MEDS: TRAZODONE HCL 50 MG TABLET 150 MG PO (20:35)
[2022-06-24] MEDS: OLANZapine 5 MG TAB.RAPDIS 2.5 MG PO (20:36)
--- NOTE | 2022-06-24 22:45 | PC.NURSE ---
Pt calm and cooperative during shift (19-23). Pt had pain during shift rated at 10 in left knee. See EMAR for intervention when reassessment was done Pt was sleeping comfortably. Pt did not get out of bed during shif. VSS.
[2022-06-25 03:50] VITALS: BP 114/65; PULSE 72; RESP 18; TEMP 36.7; O2SAT 96
[2022-06-25] MEDS: OXYCODONE 5 MG TABLET PO ×4 (03:55→12:10)
[2022-06-25 06:56] VITALS: BP 121/57; PULSE 65; RESP 18; TEMP 36.6; O2SAT 96
--- NOTE | 2022-06-25 06:58 | PC.NURSE ---
Shift note : Pt alert, CIWA's 0. Pt non wt bearing LLE, air splint on L ankle, rating pain 10/10, states 10mg Oxycodone Q4h PRN effective in pain management.
[2022-06-25 07:00] VITALS: BP 111/53; PULSE 55; RESP 18; TEMP 36.7; O2SAT 97
[2022-06-25 07:06] LABS: Basophils Absolute Auto 0.02 K/uL (0.00-0.30); Basophils Percent Auto 0.4 % (0.0-3.0); Eosinophils Absolute Auto 0.11 K/uL (0.00-0.50); Eosinophils Percent Auto 2.1 % (0.0-7.0); Hematocrit 28.4 % (37.0-53.0); Hemoglobin* 9.2 gm/dL (13.5-17.5); Lymphocytes Absolute Auto 1.44 K/uL (0.90-2.90); Lymphocytes Percent Auto 27.6 % (20-44); Mean Corpuscular HGB Conc 32 gm/dL (32-36); Mean Corpuscular Hemoglobin 34 pg (26-34); Mean Corpuscular Volume 104 fL (80-100); Monocytes Percent Auto 8.6 % (0.0-11.0); Neutrophils Absolute Auto 3.19 K/uL (1.7-7.0); Neutrophils Percent Auto 61.3 % (42.0-72.0); Platelet Count* 148 K/uL (140-440); RDW Coefficient of Variation % 15.5 % (11.5-15.5); Red Blood Count 2.74 m/uL (4.30-5.90); White Blood Count* 5.21 K/uL (4.50-11.00)
[2022-06-25 07:09] LABS: Slide Review Reflex No
[2022-06-25] MEDS: FOLIC ACID 1 MG TABLET PO ×2 (09:18→09:20)
[2022-06-25] MEDS: THIAMINE 100 MG TABLET 250 MG PO (09:18)
[2022-06-25] MEDS: OMEPRAZOLE 20 MG CAPSULE DR 40 MG PO (09:19)
[2022-06-25] MEDS: MULTIVITAMIN/MINERALS 1 TABLET 1 TAB PO (09:19)
[2022-06-25] MEDS: atenoloL 25 MG TABLET PO (09:20)
--- NOTE | 2022-06-25 11:09 | PC.SOCIAL ---
A referral was made to [facility] for PT, OT, and a BROADCAST CHECKER. Pt. has had [facility] for services in the past. They are working on getting authorization from pt.'s [employer] insurance and are checking schedules when they can get. pt. added with therapies schedules.
--- NOTE | 2022-06-25 11:35 | PM.DS1 ---
DS: Providers Provider Time Seen by Provider: 11:36 Date Seen: 06/25/22 Date of admission: 06/23/22 19:50 Primary care physician: Abimael Rm MD Admitting Clinician: Franchesca Vargas MD Consults: 06/23/22 22:27 Consult to Occupational Therapy [CONS] Routine Comment: Reason(s) for OT Consult:: Evaluate and Treat Any Restrictions?:: No Restrictions Consult to Physical Therapy [CONS] Routine Comment: Reason(s) for PT Consult:: Evaluate and Treat Any Restrictions?:: No Restrictions 06/24/22 08:17 Consult to Physician [CONS] Routine Comment: Consulting Provider: Orthopedics, [facility] Has provider been notified: Yes Attending Physician on discharge: Franchesca Vargas MD Date of Discharge: 06/25/22 DS: Diagnosis Discharge Diagnosis (1) Tibial plateau fracture, left: Status: Acute Problem details: PCL avulsion fracture. Ortho recommended non weight bearing until this heals. He can stay in a knee immobilizer or bend the knee at 20-30 degrees whenever is more comfortable for him. He needs to follow-up with orthopedics in 7-10 days. (2) Fall: Status: Acute Problem details: He has neuropathy and other factors that make a fall likely. When he has recovered enough from his knee fracture he would benefit from physical therapy. Will ask [facility] to send home physical therapy to rehab bilateral upper extremities and right lower extemity until his left knee heals then will add rehab for left knee (3) Alcohol use disorder: Status: Acute Problem details: No significant withdrawal. Urine tox was positive for THC, cocaine, methamphetamines, amphetamines and oxycodone (after he received oxycodone in the er). He was advised not to mix his other substances with oxycodone. (4) COPD (chronic obstructive pulmonary disease): Status: Acute Problem details: On Albuterol and Symbicort outpatient DS: Summary Hospital Course Hospital Course: Robbie Gage was admitted on June 23 after a fall and left knee injury. A CT of the left knee was obtained and this showed a PCL avulsion fracture from the tibial plateau. Ortho was consulted and he recommended nonweightbearing and that the patient would should remain in a knee immobilizer or with the knee in 20-30 degrees flexion until his follow-up appointment with them in 7-10 days. His other medical problems were stable during this hospitalization. He has chronic anemia and when he arrived his hemoglobin was 10.2 and with rehydration his hemoglobin came down to 9.2. He is not sure what his hemoglobin was at the last time he was at the [facility] but he thinks was probably in this range. He is on [id number] iron replacement for this. He was advised to follow-up at the [facility] for this within the next few weeks. Status at Discharge Cognitive/behavioral status at discharge: Baseline cognitive status at discharge. Time Spent with Patient Time attestation: Total time spent providing and/or coordinating discharge services: 60 minutes Time spent: Greater than 30 minutes Exam Const: Vital Signs, click to edit/add: Vital Signs - 24 hr 06/24/22 11:45 06/24/22 15:20 06/24/22 15:20 Temperature 97.8 F Pulse Rate [Left R adial] 65 78 Respiratory Rate 18 18 18 Blood Pressure [Ri ght Arm] 128/55 L Pulse Oximetry 100 99 Oxygen Delivery Me thod Room Air Room Air 06/24/22 15:20 06/24/22 15:20 06/24/22 11:45 Temperature 98.1 F 98.1 F 97.8 F Pulse Rate [Left R adial] 78 78 65 Respiratory Rate 18 18 18 Blood Pressure [Ri ght Arm] 137/63 137/63 128/55 L Pulse Oximetry 99 99 94 Oxygen Delivery Me thod Room Air Room Air Room Air 06/24/22 19:59 06/24/22 21:50 06/24/22 19:59 Temperature 98.6 F Pulse Rate [Left R adial] 54 L 54 L Respiratory Rate 16 Blood Pressure [Ri ght Arm] 104/60 Pulse Oximetry 100 100 Oxygen Delivery Me thod Room Air 06/24/22 19:59 06/24/22 23:00 06/24/22 23:00 Temperature 98.6 F 97.9 F Pulse Rate [Left R adial] 54 L 65 Respiratory Rate 16 18 18 Blood Pressure [Ri ght Arm] 104/60 121/57 L Pulse Oximetry 100 96 96 Oxygen Delivery Me thod Room Air Room Air Room Air 06/25/22 03:50 06/25/22 06:56 06/25/22 03:50 Temperature 98.0 F 97.9 F 98.0 F Pulse Rate [Left R adial] 72 65 72 Respiratory Rate 18 18 18 Blood Pressure [Ri ght Arm] 114/65 121/57 L 114/65 Pulse Oximetry 96 96 96 Oxygen Delivery Me thod Room Air Room Air Room Air 06/25/22 07:00 Temperature 98.1 F Pulse Rate [Left R adial] 55 L Respiratory Rate 18 Blood Pressure [Ri ght Arm] 111/53 L Pulse Oximetry 97 Oxygen Delivery Me thod Room Air Cardiovascular regular rate and rhythm. Lungs clear to auscultation bilaterally. Abdomen positive bowel sounds soft and nontender. Left knee has swelling over it but no redness or warmth there is diffuse tenderness over the knee and over his leg. DS: Data Data Completed and Pending Labs on day of discharge: Labs from last 24 hours 06/25/22 06:33 WBC 5.21 RBC 2.74 L Hgb 9.2 L Hct 28.4 L MCV 104 H MCH 34 MCHC 32 RDW Coeff of Nancy 15.5 Plt Count 148 Neut % (Auto) 61.3 Lymph % (Auto) 27.6 [place] % (Auto) 8.6 Eos % (Auto) 2.1 Baso % (Auto) 0.4 Neut # (Auto) 3.19 Lymph # (Auto) 1.44 [place] # (Auto) 0.40 Eos # (Auto) 0.11 Baso # (Auto) 0.[address]- Other: Radiologist's impression: INDICATION: Left knee pain. Fall. Unable to walk. COMPARISON: 06/23/2022 radiographs. TECHNIQUE: CT left knee without contrast. FINDINGS: Lipohemarthrosis. Acute comminuted nondisplaced fracture of the posterior aspect of the tibial plateau at the PCL insertion (series 8, image 176). Chondrocalcinosis. Mild medial compartment joint space narrowing. Subcutaneous edema. Vascular calcifications. IMPRESSION: Acute comminuted fracture of the posterior aspect of the tibial plateau at the PCL insertion which could be due to PCL avulsion fracture. Findings discussed with Dr. Malin at 2:20 PM on 06/24/22. Please note that all CT scans at this facility use dose modulation, iterative reconstruction, and/or weight-based dosing when appropriate to reduce radiation dose to as low as reasonably achievable. Dictated by Roberto Hamilton MD @ 06/24/2022 2:27:12 PM (Electronically Signed) Additional Comments Additional comments: Please send a copy this dictation to the [facility] and also to Dr. Jose Casper at the [facility]. Discharge Plan Discharge Disposition: Home, Self-Care Date of Admission: 06/23/22 19:50 Attending Provider on Discharge: Tito Malin Consulting Providers: Jose Pierce; Jadyn Ayoub; Ev Brody; German Reyes; Brandon Gomez Primary Care Provider: Abimael Rm Condition: Stable Anticipated Discharge Date/Time: 06/25/22 10:52 Discharge Medications: New oxycodone 5 mg Tablet 5 - 10 mg PO Q4H PRN (Reason: pain) Qty: 20 0RF Continued duloxetine 60 mg capsule,delayed release(DR/EC) 60 mg PO DAILY celecoxib [Celebrex] 100 mg capsule 100 mg PO BID folic acid 1 mg tablet 1 mg PO DAILY atenolol 50 mg tablet 25 mg PO DAILY omeprazole 20 mg capsule,delayed release(DR/EC) 40 mg PO BID trazodone 50 mg tablet 150 mg PO QHS cholecalciferol (vitamin D3) 25 mcg (1,000 unit) capsule 25 mcg PO HS olanzapine 2.5 mg tablet 2.5 mg PO QHS Discharge Orders: Discharge Order (Routine); Ordered 06/25/22 Ordered By: Tito Malin Patient Education: Oxycodone, Rapid Release (By mouth), Knee Pain (ED) Activity Level: No Weight Bearing Activity Detail: No weight bearing on the left leg. leave left leg in knee immobilizer. Discharge Diet: Regular Follow Up Appointments: Jose Pierce MD [Staff Physician] - (Follow up in Clinic w Dr. Casper in 6-9 days. Left Tibial Plateau fracture) Abimael Rm MD [Primary Care Provider] - (Schedule an appointment at the [facility] for follow-up on Anemia in next couple of weeks. He no longer sees Dr. Rm) Forms: [employer] Info Instructions
--- NOTE | 2022-06-25 13:30 | PC.NURSE ---
AV reviewed. patient vitally stable. all concerns addressed. patient discharged to home with home health services.
== END 2022-06-25 13:30 | disposition home or self-care (01) ==
LOC: ED 17:35 → MEDSURG 19:51
PROVIDERS: Family Medicine; Admitting Provider Family Medicine; Emergency Provider Family Medicine; PCP Family Medicine; Visit Provider Family Medicine
DX: S82.045A Nondisplaced comminuted fracture of left patella, initial encounter for closed fracture (principal); E87.1 Hypo-osmolality and hyponatremia; D64.9 Anemia, unspecified; M25.462 Effusion, left knee; G62.9 Polyneuropathy, unspecified; F10.90 Alcohol use, unspecified, uncomplicated; J44.9 Chronic obstructive pulmonary disease, unspecified; M25.562 Pain in left knee; M11.262 Other chondrocalcinosis, left knee; M23.92 Unspecified internal derangement of left knee; W19.XXXA Unspecified fall, initial encounter; R82.5 Elevated urine levels of drugs, medicaments and biological substances; F12.980 Cannabis use, unspecified with anxiety disorder; F17.210 Nicotine dependence, cigarettes, uncomplicated; Z90.79 Acquired absence of other genital organ(s); Z90.89 Acquired absence of other organs; Z98.890 Other specified postprocedural states; Z91.81 History of falling
CPT/HCPCS: 36415; 73552; 73562; 73590; 73700; 80048; 80306; 82077; 85025; 87635; 96360; 96361; 97162; 97165; 97530; 97535; 99283; 99284; A9153; A9270; G0378; J7030

== ENCOUNTER 2023-08-05 12:07 | Outpatient (CLI) | payer OTHER, SELFPAY ==
--- OUTSIDE RECORDS SUMMARY | 2023-08-21 03:21 | XMS_ITS | Continuity of Care Document ---
Author Name [facility] Organization [facility] Care Team Providers Care Reflexologist Name Role Phone [facility] Unavailable Unavailable Problems Combined list of problems from Department of Defense and Veterans Affairs facilities. It does not include entries that were removed or entered in error. Problem Status Onset Date Problem Type Date of Resolution Comments Source Exposure to potentially hazardous substance ([facility] [id number]) Active 024 Condition May 14, 2023 Entered By: SMITH COTTON [facility]: [facility] ANUEL Documentation Initiative [facility] Alcohol Abuse (SCT 59592423) Active Condition [facility] Chronic post-traumatic stress disorder following combat (SNOMED CT 342174155) Active Condition [facility] COPD - Chronic Obstructive Pulmonary Disease (SCT 30210754) Active Condition [facility] Depression (SNOMED CT 25701690) Active Condition [facility] Dysphagia Active Condition Mar 31 Entered By: KAREN DOVE Comment: 2/2 esophagogastric junction outlet obstructionMar 31, 2023 Entered By: KAREN DOVE Comment: esophageal manometry suggestive of EGJOOMar 31, 2023 Entered By: KAREN DOVE Comment: s/p Botox injections at the GE junction [facility] Gastritis Active Condition Mar 31 Entered By: KAREN DOVE Comment: suspected NSAID-induced 2014 +/- EtOH: remains on PPI [facility] Genital herpes simplex Active Condition May 26, 2023 Entered By: KAREN DOVE Comment: Uses PRN acyclovir [facility] Heavy tobacco smoker (SNOMED CT 084073436546900) Active Condition [facility] History of Polyp of Colon (SCT 718298465) Active Condition Mar 31, 2023 Entered By: KAREN DOVE Comment: last colonoscopy 06/21/2013 notable for hyperplastic polyp w/ repeat due June 2023 for screening purposes [facility] Idiopathic chronic neuropathy (SNOMED CT 922973646) Active Condition Mar 31, 2023 Entered By: KAREN DOVE Comment: EMG-proven [facility] Insomnia (SCT 389561155) Active Condition [facility] Lumbar spondylosis Active Condition [facility] Macrocytic anemia Active Condition Mar 31, 2023 Entered By: KAREN DOVE Comment: 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 [facility] Osteopenia Active Condition Mar 31 Entered By: KAREN DOVE Comment: per 10/2022 DEXA [facility] Prostate Cancer (SCT 328115927) Active Condition Mar 31, 2023 Entered By: KAREN DOVE Comment: status post radical retroprostatectomy 2013 complicated by incontinence [facility] Recurrent falls Active Condition Mar 31, 2023 Entered By: KAREN DOVE Comment: Likely driven by of his severe lower extremity neuropathy [facility] Vitamin B12 deficiency (non anemic) Active Condition [facility] Vitamin D deficiency Active Condition [facility] Adrenal mass (SNOMED CT 335146309) Inactive Condition 03/31/2023 [facility] Diagnosis: ICD-10-CM F33.1 Major depressive disorder, recurrent, moderate Active Diagnosis [facility] Diagnosis: ICD-10-CM R93.3 Abnormal findings on dx imaging of prt digestive tract Active Diagnosis [facility] Diagnosis: ICD-10-CM Z71.6 Tobacco abuse counseling Active Diagnosis [facility] Diagnosis: ICD-10-CM K22.89 Other specified disease of esophagus Active Diagnosis [facility] Diagnosis: ICD-10-CM Z13.6 Encounter for screening for cardiovascular disorders Active Diagnosis [facility] Diagnosis: ICD-10-CM K31.819 Angiodysplasia of stomach and duodenum without bleeding Active Diagnosis [facility] Diagnosis: ICD-10-CM Z74.09 Other reduced mobility Active Diagnosis [facility] Diagnosis: ICD-10-CM R26.9 Unspecified abnormalities of gait and mobility Active Diagnosis [facility] Diagnosis: ICD-10-CM R26.89 Other abnormalities of gait and mobility Active Diagnosis [facility] Diagnosis: ICD-10-CM G60.3 Idiopathic progressive neuropathy Active Diagnosis [facility] Diagnosis: ICD-10-CM Z71.9 Counseling, unspecified Active Diagnosis [facility] Diagnosis: ICD-10-CM R52 Pain, unspecified Active Diagnosis [facility] Medications Combined list of outpatient medications from Department of Defense and Veterans Affairs facilities.Medications provided include 1) outpatient medications from the last 15 months, and 2) patient-reported medications. Medication Details Route Status Patient Instructions Prescription Expires Prescription Number Last Dispense Date Ordering Provider Order Date Order Qty Source ACYCLOVIR 200MG CAP TAKE TWO CAPSULES BY MOUTH THREE TIMES A DAY FOR HSV ORAL ACTIVE 08/11/2024 [id number] KAREN DOVE 2023 42 [place] [facility] ACYCLOVIR 200MG CAP TAKE TWO CAPSULES BY MOUTH THREE TIMES A DAY FOR HSV ORAL DISCONT INUED 08/13/2023 [id number] 4 KAREN DOVE 2023 42 [place] [facility] ACYCLOVIR 200MG CAP TAKE TWO CAPSULES BY MOUTH THREE TIMES A DAY ORAL DISCONT INUED 01/17/2023 [id number] 3 KAREN DOVE 2022 30 [place] [facility] ACYCLOVIR 200MG CAP TAKE TWO CAPSULES BY MOUTH THREE TIMES A DAY FOR HSV ORAL 06/25/2023 [id number] 4 KAREN DOVE 2023 42 [place] [facility] ACYCLOVIR 200MG CAP TAKE TWO CAPSULES BY MOUTH THREE TIMES A DAY ORAL 05/01/2023 [id number] 4 KAREN DOVE 2023 60 [place] [facility] ALBUTEROL 90MCG/ACTUA T (CFC-F) INHL,ORAL,8 .5GM DOSE COUNTER INHALE 2 PUFFS BY INHALATI ON FOUR TIMES A DAY NEEDED FOR IMMEDIAT E RELIEF OF SHORTNES S OF BREATH *SHAKE WELL* RESPIR ATORY (INHAL ATION) 01/30/2023 [id number] 3 KAREN DOVE 2021 2 [place] [facility] ATENOLOL 25MG TAB TAKE ONE TABLET BY MOUTH EVERY DAY FOR ANXIETY FOR ANXIETY ORAL ACTIVE 11/21/2023 [id number] 3 JESUS MAYNARD E V 2022 90 [place] [facility] ATENOLOL 25MG TAB TAKE ONE TABLET BY MOUTH EVERY DAY FOR ANXIETY FOR ANXIETY ORAL DISCONT INUED 04/03/2023 [id number] 3 PETTY,KAREN B 2022 90 [place] [facility] CARBOXYMETH YLCELLULOSE NA 0.5% SOLN,OPH INSTILL 1 DROP IN BOTH EYES FOUR TIMES A DAY NEEDED FOR DRY EYES OPHTHA LMIC ACTIVE 08/21/2023 [id number] 4 PETTY,KAREN B 2022 15 [place] [facility] CELECOXIB 100MG CAP TAKE ONE CAPSULE BY MOUTH TWICE A DAY FOR PAIN ORAL DISCONT INUED 06/15/2023 [id number] 4 PETTY,KAREN B 2023 180 [place] [facility] CELECOXIB 100MG CAP TAKE ONE CAPSULE BY MOUTH TWICE A DAY FOR PAIN ORAL DISCONT INUED 02/23/2023 [id number] 3 PETTYKAREN B 2022 180 [place] [facility] CELECOXIB 100MG CAP TAKE ONE CAPSULE BY MOUTH TWICE A DAY FOR PAIN ORAL DISCONT INUED 10/07/2022 [id number] 3 PETTY,KAREN B 2022 180 [place] [facility] CHOLECALCIF SHAKIRA 25MCG (1,000UNIT) TAB TAKE ONE TABLET BY MOUTH EVERY DAY FOR VITAMIN D ORAL ACTIVE 08/21/2023 [id number] 4 PETTY,KAREN B 2022 100 [place] [facility] CYANOCOBALA MIN 1000MCG TAB TAKE ONE TABLET BY MOUTH EVERY DAY FOR B12 ORAL ACTIVE 08/23/2023 [id number] 4 PETTY,KAREN B 2022 100 [place] [facility] DULOXETINE HCL 20MG CAP,EC TAKE FOUR CAPSULES BY MOUTH EVERY DAY FOR ANXIETY, PAIN, AND DEPRESSI ON ORAL DISCONT INUED 10/10/2023 [id number] JESUS MAYNARD V 2022 120 [place] [facility] DULOXETINE HCL 30MG CAP,EC TAKE THREE CAPSULES BY MOUTH EVERY MORNING FOR DEPRESSI ON ORAL SUSPEND ED 07/16/2024 [id number] 4 JESUS MAYNARD V 2023 270 [place] [facility] DULOXETINE HCL 30MG CAP,EC TAKE THREE CAPSULES BY MOUTH EVERY MORNING FOR DEPRESSI ON ORAL DISCONT INUED 03/15/2024 [id number] 4 JESUS MAYNARD V 2023 270 [place] [facility] DULOXETINE HCL 30MG CAP,EC TAKE THREE CAPSULES BY MOUTH EVERY MORNING FOR DEPRESSI ON ORAL 02/18/2023 [id number] 3 JESUS MAYNARD V 2022 270 [place] [facility] DULOXETINE HCL 60MG CAP,EC TAKE ONE CAPSULE BY MOUTH EVERY DAY FOR ANXIETY FOR ANXIETY, PAIN, AND DEPRESSI ON ORAL DISCONT INUED (EDIT) 08/14/2023 [id number] 3 JESUS MAYNARD V 2022 30 [place] [facility] DULOXETINE HCL 60MG CAP,EC TAKE ONE CAPSULE BY MOUTH EVERY DAY FOR ANXIETY FOR ANXIETY, PAIN, AND DEPRESSI ON ORAL DISCONT INUED 06/04/2023 [id number] 3 JESUS MAYNARD V 2022 30 [facility] [facility] EPINEPHRINE (EQV-EPI-PE N) 0.3MG/0.3ML INJECTOR INJECT 1 PEN DIRECTED ONCE NEEDED FOR ALLERGIC REACTION ACTIVE 08/30/2023 [id number] NYDIA MONTIEL C 2022 2 [facility] FERROUS GLUCONATE 324MG TAB TAKE ONE TABLET BY MOUTH EVERY OTHER DAY FOR ANEMIA ORAL SUSPEND ED 04/01/2024 [id number] 4 KAREN DOVE 2023 100 [facility] FOLIC ACID 1MG TAB TAKE ONE TABLET BY MOUTH EVERY DAY ORAL SUSPEND ED 03/17/2024 [id number] 4 KAREN DOVE 2023 90 [facility] FOLIC ACID 1MG TAB TAKE ONE TABLET BY MOUTH EVERY DAY ORAL DISCONT INUED 03/27/2023 [id number] 3 KAREN DOVE 2022 90 [facility] [facility] LIDOCAINE 5% PATCH APPLY 1 PATCH TOPICALL Y EVERY DAY FOR UP TO 12 HOURS FOR PAIN TOPICA L 04/03/2023 [id number] 3 KAREN ODVE 2022 30 [place] [facility] NALOXONE HCL 4MG/SPRAY SOLN,SPRAY, NASAL SPRAY 1 DOSE IN ONE NOSTRIL DIRECTED FOR UNRESPON SIVENESS THEN CALL 911 - IF NO CHANGE IN 2-3 MINUTES, GIVE SECOND DOSE IN OPPOSITE NOSTRIL NASAL 06/28/2023 [id number] 3 KAREN DOVE 2022 2 [facility] OLANZAPINE 2.5MG TAB TAKE ONE TABLET BY MOUTH AT BEDTIME FOR IRRITABI LITY AND SLEEP ORAL ACTIVE 07/16/2024 [id number] 4 JESUS MAYNARD V 2023 90 [facility] OLANZAPINE 2.5MG TAB TAKE ONE TABLET BY MOUTH AT BEDTIME FOR IRRITABI LITY AND SLEEP ORAL DISCONT INUED 03/12/2024 [id number] 4 JESUS MAYNARD V 2023 90 [facility] OLANZAPINE 2.5MG TAB TAKE ONE TABLET BY MOUTH AT BEDTIME FOR IRRITABI LITY AND SLEEP ORAL DISCONT INUED 11/21/2023 [id number] 3 JESUS MAYNARD V 2022 30 [facility] OLANZAPINE 2.5MG TAB TAKE ONE TABLET BY MOUTH AT BEDTIME FOR IRRITABI LITY AND SLEEP ORAL DISCONT INUED 08/23/2023 [id number] 3 JESUS MAYNARD V 2022 30 [facility] OLANZAPINE 2.5MG TAB TAKE ONE TABLET BY MOUTH AT BEDTIME FOR IRRITABI LITY AND SLEEP ORAL DISCONT INUED 05/03/2023 [id number] 3 JESUS MAYNARD V 2022 30 [place] [facility] OLODATEROL 2.5MCG/TIOT ROPIUM 2.5MCG/ACTU AT INHL,ORAL,6 0D,4GM INHALE 2 PUFFS BY INHALATI ON EVERY DAY FOR COPD RESPIR ATORY (INHAL ATION) ACTIVE 08/21/2023 [id number] 4 PETTY,KAREN B 2022 1 [facility] [facility] OMEPRAZOLE 20MG CAP,EC TAKE TWO CAPSULES BY MOUTH TWICE A DAY ON AN EMPTY STOMACH, AT LEAST 30 MINUTES PRIOR TO A MEAL TO DECREASE STOMACH ACID ORAL ACTIVE 01/08/2024 [id number] 4 PETTY,KAREN B 2022 360 [facility] [facility] OMEPRAZOLE 20MG CAP,EC TAKE TWO CAPSULES BY MOUTH TWICE A DAY ON AN EMPTY STOMACH, AT LEAST 30 MINUTES PRIOR TO A MEAL TO DECREASE STOMACH ACID ORAL DISCONT INUED 09/25/2022 [id number] 3 PETTYMARCIALO B 2021 360 [place] [facility] OMEPRAZOLE 40MG CAP,EC TAKE ONE CAPSULE BY MOUTH TWICE A DAY FOR STOMACH ACID ORAL ACTIVE 01/07/2024 [id number] 4 PETTY,KAREN B 2022 180 [place] [facility] ONDANSETRON HCL 4MG TAB TAKE ONE TABLET BY MOUTH EVERY DAY NEEDED FOR NAUSEA ORAL ACTIVE 05/13/2024 [id number] 4 PETTY,KAREN B 2023 30 [facility] [facility] OXYCODONE HCL 5MG TAB TAKE ONE TABLET BY MOUTH EVERY 4 HOURS NEEDED FOR PAIN ORAL DISCONT INUED 08/14/2022 [id number] 3 PETTY,KAREN B 2022 56 [place] [facility] OXYCODONE HCL 5MG TAB TAKE ONE TABLET BY MOUTH EVERY 4 HOURS NEEDED FOR PAIN ORAL DISCONT INUED 07/27/2022 [id number] 3 PETTY,KAREN B 2022 84 [place] [facility] PYRIDOXINE HCL 50MG TAB TAKE 1/2 TABLET BY MOUTH EVERY DAY ORAL 04/03/2023 [id number] 3 PETTY,KAREN B 2022 100 [place] [facility] SILDENAFIL CITRATE 100MG TAB TAKE ONE TABLET BY MOUTH EVERY DAY NEEDED 1 HOUR BEFORE ANTICIPA YAKOV SEXUAL ACTIVITY . FOR ERECTION S. ORAL ACTIVE 01/29/2024 [id number] 4 KAREN DOVE 2022 6 [place] [facility] SILDENAFIL CITRATE 100MG TAB TAKE ONE TABLET BY MOUTH EVERY DAY NEEDED 1 HOUR BEFORE ANTICIPA YAKOV SEXUAL ACTIVITY . FOR ERECTION S. ORAL DISCONT INUED 04/03/2023 [id number] 3 MARCIAL DOVEO B 2022 6 [place] [facility] THIAMINE 100MG TAB TAKE ONE TABLET BY MOUTH EVERY DAY ORAL SUSPEND ED 04/01/2024 [id number] 4 MARCIAL DOVEO B 2023 100 [place] [facility] THIAMINE 100MG TAB TAKE ONE TABLET BY MOUTH EVERY DAY ORAL DISCONT INUED 04/03/2023 [id number] 3 KAREN DOVE 2022 100 [place] [facility] TRAZODONE HCL 150MG TAB TAKE ONE TABLET BY MOUTH AT BEDTIME FOR SLEEP ORAL SUSPEND ED 07/16/2024 [id number] 4 JESUS MAYNARD V 2023 90 [place] [facility] TRAZODONE HCL 150MG TAB TAKE ONE TABLET BY MOUTH AT BEDTIME FOR SLEEP ORAL DISCONT INUED 03/12/2024 [id number] 4 JESUS MAYNARD V 2023 90 [place] [facility] TRAZODONE HCL 150MG TAB TAKE ONE TABLET BY MOUTH AT BEDTIME FOR SLEEP ORAL DISCONT INUED 04/06/2023 [id number] JESUS MAYNARD V 2022 90 [place] [facility] TRAZODONE HCL 50MG TAB TAKE THREE TABLETS BY MOUTH AT BEDTIME ORAL DISCONT INUED 11/19/2023 [id number] 3 JESUS MAYNARD V 2022 270 [place] [facility] TRAZODONE HCL 50MG TAB TAKE THREE TABLETS BY MOUTH AT BEDTIME ORAL DISCONT INUED 09/27/2022 [id number] JESUS MAYNARD V 2021 270 [place] [facility] Allergies, Adverse Reactions, Alerts Combined list of allergies from Department of Defense and Veterans Affairs facilities. It does not include entries that were removed or entered in error. Substance Category Reaction Severity Reaction type Status Date Reported Comments Source B[facility] Propensity to adverse reaction (finding) Swelling, Sweating, Discolorati on of skin active 0 [facility] BUTORPHANOL Propensity to adverse reactions to drug (finding) Hallucinati ons active 0 [facility] Immunizations Combined list of available immunizations from the Department of [facility] and [facility] facilities. Immunization Series Date Given Administered By Site Reaction Lot Number CVX Code Drug Landscape Artist Status Comments Source ZOSTER RECOMBINANT 2 2021 187 complet ed [facility] INFLUENZA, INJECTABLE, QUADRIVALENT, PRESERVATIVE FREE 2020 150 complet ed [facility] PNEUMOCOCCAL POLYSACCHARID E PPV23 2019 33 complet ed MerckShar p [id number] [facility] ZOSTER RECOMBINANT 1 2019 187 complet ed [facility] PNEUMOCOCCAL CONJUGATE PCV 13 2018 133 complet ed 000 [facility] TDAP 2016 115 complet ed [facility] INFLUENZA, SEASONAL, INJECTABLE, PRESERVATIVE FREE 2014 140 complet ed [facility] INFLUENZA, UNSPECIFIED FORMULATION 2013 88 complet ed [facility] TDAP 2013 115 complet ed Glaxo nogueira joe,5SR 2L, [facility] INFLUENZA, UNSPECIFIED FORMULATION 2011 88 complet ed [facility] ZOSTER LIVE 2011 121 complet ed [facility] ZOSTER LIVE 2011 121 complet ed [facility] TDAP 2011 115 complet ed [facility] PNEUMOCOCCAL, UNSPECIFIED FORMULATION 2009 109 complet ed sanofi pasteur,u [id number],05/18 [facility] TD(ADULT) UNSPECIFIED FORMULATION 2003 139 complet ed [facility] DT (PEDIATRIC) 1985 28 complet ed [facility] Results Combined list of recent chemistry, hematology and other laboratory results from Department of [employer] and Veterans Affairs, ranging from 15 months to all on record, depending upon the facility. Order Name Results Value Reference Range Date Interpretation Specimen Comments Source B 12 COBALAMIN (VITAMIN B12) [MASS/VOLUM E] IN SERUM OR PLASMA 1040 pg/mL 213 - 816 04/01 H Specimen Type: SERUM No comment entered. Ordering Provider: KAREN DOVE Report Released Date/Time: Aug 20, 2022 09:56 AM Reporting Lab: [facility] [phone] Performing Lab: [facility] [phone] [facility] FOLATE FOLATE [MASS/VOLUM E] IN SERUM OR PLASMA 13.6 ng/mL 7.0 04/01 Specimen Type: SERUM No comment entered. Ordering Provider: KAREN DOVE Report Released Date/Time: Aug 20, 2022 09:56 AM Reporting Lab: [facility] [phone] Performing Lab: [facility] [phone] [facility] VIT D 25-OH,TOT AL 25-HYDROXYV ITAMIN D3 [MASS/VOLUM E] IN SERUM OR PLASMA 36 ng/mL 12 - 50 04/01 Specimen Type: SERUM No comment entered. Ordering Provider: KAREN DOVE Report Released Date/Time: Aug 20, 2022 09:56 AM Reporting Lab: [facility] [phone] Performing Lab: [facility] [address] [facility] CBC LEUKOCYTES [#/VOLUME] IN BLOOD BY AUTOMATED COUNT 6.26 10*3/u L 4.0 - 11.0 04/01 Specimen Type: BLOOD No comment entered. Ordering Provider: KAREN DOVE Report Released Date/Time: Aug 20, 2022 09:56 AM Reporting Lab: [facility] [phone] Performing Lab: [facility] [address] [facility] CBC ERYTHROCYTE S [#/VOLUME] IN BLOOD BY AUTOMATED COUNT 3.02 10*6/u L 4.6 - 6.2 04/01 L Specimen Type: BLOOD No comment entered. Ordering Provider: KAREN DOVE Report Released Date/Time: Aug 20, 2022 09:56 AM Reporting Lab: [facility] [address] Performing Lab: [facility] [address] [place] [facility] CBC HEMOGLOBIN [MASS/VOLUM E] IN BLOOD 8.9 g/dL 13.5 - 17.9 04/01 L Specimen Type: BLOOD No comment entered. Ordering Provider: KAREN DOVE Report Released Date/Time: Aug 20, 2022 09:56 AM Reporting Lab: [facility] [address] Performing Lab: [facility] [address] [place] [facility] CBC HEMATOCRIT [VOLUME FRACTION] OF BLOOD BY AUTOMATED COUNT 28.2 41 - 54 04/01 L Specimen Type: BLOOD No comment entered. Ordering Provider: KAREN DOVE Report Released Date/Time: Aug 20, 2022 09:56 AM Reporting Lab: [facility] [address] Performing Lab: [facility] [address] [place] [facility] CBC MCV [ENTITIC VOLUME] BY AUTOMATED COUNT 93.4 fL 80 - 100 04/01 Specimen Type: BLOOD No comment entered. Ordering Provider: KAREN DOVE Report Released Date/Time: Aug 20, 2022 09:56 AM Reporting Lab: [facility] [address] Performing Lab: [facility] [phone] [place] [facility] CBC MCH [ENTITIC MASS] BY AUTOMATED COUNT 29.5 pg 27 - 33 04/01 Specimen Type: BLOOD No comment entered. Ordering Provider: KAREN DOVE Report Released Date/Time: Aug 20, 2022 09:56 AM Reporting Lab: [facility] [address] Performing Lab: [facility] [address] [place] [facility] CBC MCHC [MASS/VOLUM E] BY AUTOMATED COUNT 31.6 g/dL 32.0 - 37.5 04/01 L Specimen Type: BLOOD No comment entered. Ordering Provider: KAREN DOVE Report Released Date/Time: Aug 20, 2022 09:56 AM Reporting Lab: [facility] [phone] Performing Lab: [facility] [phone] [facility] CBC PLATELETS [#/VOLUME] IN BLOOD BY AUTOMATED COUNT 189 10*3/u L 150 - 400 04/01 Specimen Type: BLOOD No comment entered. Ordering Provider: KAREN DOVE Report Released Date/Time: Aug 20, 2022 09:56 AM Reporting Lab: [facility] [address] Performing Lab: [facility] [phone] [facility] CBC PLATELET MEAN VOLUME [ENTITIC VOLUME] IN BLOOD BY AUTOMATED COUNT 10.3 fL 7.4 - 10.4 04/01 Specimen Type: BLOOD No comment entered. Ordering Provider: KAREN DOVE Report Released Date/Time: Aug 20, 2022 09:56 AM Reporting Lab: [facility] [address] Performing Lab: [facility] [address] [facility] CBC ERYTHROCYTE DISTRIBUTIO N WIDTH [RATIO] BY AUTOMATED COUNT 15.9 11.5 - 14.5 04/01 H Specimen Type: BLOOD No comment entered. Ordering Provider: KAREN DOVE Report Released Date/Time: Aug 20, 2022 09:56 AM Reporting Lab: [facility] [address] Performing Lab: [facility] [address] [facility] COMPREHEN SIVE METABOLIC PANEL+MG CREATININE [MASS/VOLUM E] IN SERUM OR PLASMA 1.4 mg/dL 0.7 - 1.2 04/01 H Specimen Type: PLASMA No comment entered. Ordering Provider: KAREN DOVE Report Released Date/Time: Aug 20, 2022 09:56 AM Reporting Lab: [facility] [address] Performing Lab: [facility] [phone] [facility] COMPREHEN SIVE METABOLIC PANEL+MG UREA NITROGEN [MASS/VOLUM E] IN SERUM OR PLASMA 16 mg/dL 8 - 26 04/01 Specimen Type: PLASMA No comment entered. Ordering Provider: KAREN DOVE Report Released Date/Time: Aug 20, 2022 09:56 AM Reporting Lab: [facility] [phone] Performing Lab: [facility] [address] [place] [facility] COMPREHEN SIVE METABOLIC PANEL+MG GLUCOSE [MASS/VOLUM E] IN SERUM OR PLASMA 103 mg/dL 70 - 100 04/01 H Specimen Type: PLASMA No comment entered. Ordering Provider: KAREN DOVE Report Released Date/Time: Aug 20, 2022 09:56 AM Reporting Lab: [facility] [address] Performing Lab: [facility] [address] [place] [facility] COMPREHEN SIVE METABOLIC PANEL+MG SODIUM [MOLES/VOLU ME] IN SERUM OR PLASMA 138 mmol/L 136 - 145 04/01 Specimen Type: PLASMA No comment entered. Ordering Provider: KAREN DOVE Report Released Date/Time: Aug 20, 2022 09:56 AM Reporting Lab: [facility] [address] Performing Lab: [facility] [address] [place] [facility] COMPREHEN SIVE METABOLIC PANEL+MG POTASSIUM [MOLES/VOLU ME] IN SERUM OR PLASMA 3.4 mmol/L 3.5 - 5.1 04/01 L Specimen Type: PLASMA No comment entered. Ordering Provider: KAREN DOVE Report Released Date/Time: Aug 20, 2022 09:56 AM Reporting Lab: [facility] [address] Performing Lab: [facility] [address] [place] [facility] COMPREHEN SIVE METABOLIC PANEL+MG CHLORIDE [MOLES/VOLU ME] IN SERUM OR PLASMA 105 mmol/L 98 - 107 04/01 Specimen Type: PLASMA No comment entered. Ordering Provider: KAREN DOVE Report Released Date/Time: Aug 20, 2022 09:56 AM Reporting Lab: [facility] [address] Performing Lab: [facility] [address] [place] [facility] COMPREHEN SIVE METABOLIC PANEL+MG CARBON DIOXIDE, TOTAL [MOLES/VOLU ME] IN SERUM OR PLASMA 26 mmol/L 22 - 29 04/01 Specimen Type: PLASMA No comment entered. Ordering Provider: KAREN DOVE Report Released Date/Time: Aug 20, 2022 09:56 AM Reporting Lab: [facility] [address] Performing Lab: [facility] [address] [place] [facility] COMPREHEN SIVE METABOLIC PANEL+MG CALCIUM [MASS/VOLUM E] IN SERUM OR PLASMA 8.5 mg/dL 8.4 - 10.2 04/01 Specimen Type: PLASMA No comment entered. Ordering Provider: KAREN DOVE Report Released Date/Time: Aug 20, 2022 09:56 AM Reporting Lab: [facility] [address] Performing Lab: [facility] [address] [place] [facility] COMPREHEN SIVE METABOLIC PANEL+MG PROTEIN [MASS/VOLUM E] IN SERUM OR PLASMA 6.3 g/dL 6.0 - 8.3 04/01 Specimen Type: PLASMA No comment entered. Ordering Provider: KAREN DOVE Report Released Date/Time: Aug 20, 2022 09:56 AM Reporting Lab: [facility] [phone] Performing Lab: [facility] [phone] [place] [facility] METABOLIC PANEL+MG ALBUMIN [MASS/VOLUM E] IN SERUM OR PLASMA 3.3 g/dL 3.5 - 5.2 04/01 L Specimen Type: PLASMA No comment entered. Ordering Provider: KAREN DOVE Report Released Date/Time: Aug 20, 2022 09:56 AM Reporting Lab: [facility] [phone] Performing Lab: [facility] [phone] [place] [facility] METABOLIC PANEL+MG BILIRUBIN.T OTAL [MASS/VOLUM E] IN SERUM OR PLASMA 0.3 mg/dL 0.2 - 1.2 04/01 Specimen Type: PLASMA No comment entered. Ordering Provider: KAREN DOVE Report Released Date/Time: Aug 20, 2022 09:56 AM Reporting Lab: [facility] [phone] Performing Lab: [facility] [phone] [place] [facility] METABOLIC PANEL+MG MAGNESIUM [MASS/VOLUM E] IN SERUM OR PLASMA 1.8 mg/dL 1.6 - 2.6 04/01 Specimen Type: PLASMA No comment entered. Ordering Provider: KAREN DOVE Report Released Date/Time: Aug 20, 2022 09:56 AM Reporting Lab: [facility] [phone] Performing Lab: [facility] [address] [place] [facility] COMPREHEN SIVE METABOLIC PANEL+MG ANION GAP IN SERUM OR PLASMA 7 mmol/L 5 - 15 04/01 Specimen Type: PLASMA No comment entered. Ordering Provider: KAREN DOVE Report Released Date/Time: Aug 20, 2022 09:56 AM Reporting Lab: [facility] [address] Performing Lab: [facility] [address] [place] [facility] COMPREHEN SIVE METABOLIC PANEL+MG ALKALINE PHOSPHATASE [ENZYMATIC ACTIVITY/VO LUME] IN SERUM OR PLASMA 93 U/L 40 - 150 04/01 Specimen Type: PLASMA No comment entered. Ordering Provider: KAREN DOVE Report Released Date/Time: Aug 20, 2022 09:56 AM Reporting Lab: [facility] [address] Performing Lab: [facility] [address] [place] [facility] COMPREHEN SIVE METABOLIC PANEL+MG ALANINE AMINOTRANSF ERASE [ENZYMATIC ACTIVITY/VO LUME] IN SERUM OR PLASMA 10 U/L <55 - 55 04/01 Specimen Type: PLASMA No comment entered. Ordering Provider: KAREN DOVE Report Released Date/Time: Aug 20, 2022 09:56 AM Reporting Lab: [facility] [address] Performing Lab: [facility] [address] [place] [facility] COMPREHEN SIVE METABOLIC PANEL+MG ASPARTATE AMINOTRANSF ERASE [ENZYMATIC ACTIVITY/VO LUME] IN SERUM OR PLASMA 24 U/L <34 - 34 04/01 Specimen Type: PLASMA No comment entered. Ordering Provider: KAREN DOVE Report Released Date/Time: Aug 20, 2022 09:56 AM Reporting Lab: [facility] [address] Performing Lab: [facility] [address] [place] [facility] COMPREHEN SIVE METABOLIC PANEL+MG GLOMERULAR FILTRATION RATE/1.73 SQ M.PREDICTED [VOLUME RATE/AREA] IN SERUM, PLASMA OR BLOOD BY CREATININE- BASED FORMULA (CKD-EPI 2020) 54 60 04/01 L Specimen Type: PLASMA No comment entered. Ordering Provider: KAREN DOVE Report Released Date/Time: Aug 20, 2022 09:56 AM Reporting Lab: [facility] [address] Performing Lab: [facility] [address] [place] [facility] RETICS RETICULOCYT ES/100 ERYTHROCYTE S IN BLOOD BY AUTOMATED COUNT 0.0416 10*6/u L 0.0300 - 0.1000 04/01 Specimen Type: BLOOD Comment: Specimen received is PLASMA. Ordering Provider: KAREN DOVE Report Released Date/Time: Apr 01, 2023 10:44 AM Reporting Lab: [facility] [address] Performing Lab: [facility] [address] [place] [facility] RETICS RETICULOCYT ES/100 ERYTHROCYTE S IN BLOOD BY AUTOMATED COUNT 1.39 0.6 - 2.0 04/01 Specimen Type: BLOOD Comment: Specimen received is PLASMA. Ordering Provider: KAREN DOVE Report Released Date/Time: Apr 01, 2023 10:44 AM Reporting Lab: [facility] [address] Performing Lab: [facility] [address] [place] [facility] RETICS IMMATURE RETICULOCYT ES/RETICULO CYTES.TOTAL IN BLOOD 16.6 1.0 - 14.0 04/01 H Specimen Type: BLOOD Comment: Specimen received is PLASMA. Ordering Provider: KAREN DOVE Report Released Date/Time: Apr 01, 2023 10:44 AM Reporting Lab: [facility] [address] Performing Lab: [facility] [address] [place] [facility] RETICS RETICULOCYT E PRODUCTION INDEX 25.4 pg 28.2 - 36.6 04/01 L Specimen Type: BLOOD Comment: Specimen received is PLASMA. Ordering Provider: KAREN DOVE Report Released Date/Time: Apr 01, 2023 10:44 AM Reporting Lab: [facility] [address] Performing Lab: [facility] [address] [place] [facility] IRON GROUP IRON [MASS/VOLUM E] IN SERUM OR PLASMA 35 ug/dL 65 - 175 04/01 L Specimen Type: SERUM Comment: Specimen received is PLASMA. Ordering Provider: KAREN DOVE Report Released Date/Time: Apr 01, 2023 10:44 AM Reporting Lab: [facility] [address] Performing Lab: [facility] [address] [place] [facility] IRON GROUP IRON BINDING CAPACITY [MASS/VOLUM E] IN SERUM OR PLASMA 381 ug/dL 250 - 425 04/01 Specimen Type: SERUM Comment: Specimen received is PLASMA. Ordering Provider: KAREN DOVE Report Released Date/Time: Apr 01, 2023 10:44 AM Reporting Lab: [facility] [address] Performing Lab: [facility] [address] [place] [facility] IRON GROUP FERRITIN [MASS/VOLUM E] IN SERUM OR PLASMA 16.8 ng/mL 21.8 - 274.7 04/01 L Specimen Type: SERUM Comment: Specimen received is PLASMA. Ordering Provider: KAREN DOVE Report Released Date/Time: Apr 01, 2023 10:44 AM Reporting Lab: [facility] [address] Performing Lab: [facility] [address] [place] [facility] IRON GROUP IRON SATURATION 9 20 - 50 04/01 L Specimen Type: SERUM Comment: Specimen received is PLASMA. Ordering Provider: KAREN DOVE Report Released Date/Time: Apr 01, 2023 10:44 AM Reporting Lab: [facility] [address] Performing Lab: [facility] [address] [place] [facility] IRON GROUP TRANSFERRIN [MASS/VOLUM E] IN SERUM OR PLASMA 305 mg/dL 163 - 382 04/01 Specimen Type: SERUM Comment: Specimen received is PLASMA. Ordering Provider: KAREN DOVE Report Released Date/Time: Apr 01, 2023 10:44 AM Reporting Lab: [facility] [address] Performing Lab: [facility] [address] [place] [facility] PTH-N-TAC T PARATHYRIN. INTACT [MASS/VOLUM E] IN SERUM OR PLASMA 62.0 pg/mL 8.7 - 77.1 08/20 Specimen Type: PLASMA No comment entered. Ordering Provider: KAREN DOVE Report Released Date/Time: Aug 19, 2022 04:38 PM Reporting Lab: [facility] [address] Performing Lab: [facility] [address] [facility] FOLATE FOLATE [MASS/VOLUM E] IN SERUM OR PLASMA 16.5 ng/mL 08/20 Specimen Type: SERUM No comment entered. Ordering Provider: KAREN DOVE Report Released Date/Time: Aug 19, 2022 04:38 PM Reporting Lab: [facility] [address] Performing Lab: [facility] [address] [facility] B 12 COBALAMIN (VITAMIN B12) [MASS/VOLUM E] IN SERUM OR PLASMA 213 pg/mL 213 - 816 08/20 Specimen Type: SERUM No comment entered. Ordering Provider: KAREN DOVE Report Released Date/Time: Aug 19, 2022 04:38 PM Reporting Lab: [facility] [address] Performing Lab: [facility] [address] [facility] Vital Signs Combined list of inpatient and [...] ADM Date DC Date Status Disposition Source [facility] Outpatient Encounter [id number] 03/06 [place] [facility] [place] [facility] Outpatient Encounter [id number] 03/06 [place] [facility] [place] [facility] Outpatient Encounter [id number] 03/13 [place] [facility] [place] [facility] OFFICE O/P EST HI 40-54 MIN [id number] Diagnos is: ICD-10- CM R52 Pain, unspeci fied
PETTY,KAREN B 04/02 [place] [facility] [place] [facility] Outpatient Encounter [id number] 04/03 [place] [facility] [place] [facility] Outpatient Encounter [id number] Diagnos is: ICD-10- CM R26.9 Unspeci fied abnorma lities of gait and mobilit y
SEBASTIEN EL 04/08 [place] [facility] [place] [facility] Outpatient Encounter [id number] 04/08 [place] [facility] [place] [facility] Outpatient Encounter [id number] 04/08 [place] [facility] [place] [facility] Outpatient Encounter [id number] 04/09 [place] [facility] [place] [facility] Outpatient Encounter [id number] 04/23 [place] [facility] [place] [facility] HC PRO PHONE CALL 21-30 MIN [id number] Diagnos is: ICD-10- CM Z71.9 Bb Shot Packer ing, unspeci fied
PETTY,KAREN B 04/25 [place] [facility] [place] [facility] Outpatient Encounter [id number] Lauren MORGAN 06/23 [place] [facility] [place] [facility] En[facility] [id number] MARCIE C[place]AND 06/24 [place] [facility] [place] [facility] En[facility] [id number] 06/25 [place] [facility] [place] [facility] En[facility] [id number] 06/27 [place] [facility] [place] [facility] En[facility] [id number] 07/03 [place] [facility] [place] [facility] Encounter [id number] 07/08 [place] [facility] [place] [facility] Encounter [id number] 07/11 [place] [facility] [place] [facility] En[facility] [id number] 07/15 [place] [facility] [place] [facility] Encounter [id number] 07/15 [place] [facility] [place] [facility] Encounter [id number] 07/18 [place] [facility] [place] [facility] En[facility] [id number] 08/02 [place] [facility] [place] [facility] OT EVAL LOW COMPLEX 30 MIN [id number] Diagnos is: ICD-10- CM G60.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<br/ > SAROJ NOGUEIRA 08/13 [place] [facility] [place] [facility] En[facility] [id number] Rosa HEWITT 08/13 [place] [facility] [place] [facility] Outpatient Encounter [id number] NAHOMY BULLOCK 08/13 [place] [facility] [place] [facility] Outpatient Encounter [id number] NAHOMY BULLOCK 08/13 [place] [facility] [place] [facility] Outpatient Encounter [id number] 08/20 [place] [facility] [place] [facility] OFFICE O/P EST HI 40-54 MIN [id number] Diagnos is: ICD-10- CM 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<br/ > KAREN DOVE 08/20 [place] [facility] [place] [facility] Outpatient Encounter [id number] 08/20 [place] [facility] [place] [facility] Outpatient Encounter [id number] KAREN DOVE 08/21 [place] [facility] [place] [facility] Outpatient Encounter [id number] 08/27 [place] [facility] [place] [facility] Outpatient Encounter [id number] 08/28 [place] [facility] [place] [facility] Outpatient Encounter [id number] SHIRA PISANO 08/29 [place] [facility] [place] [facility] SELF CARE MNGMENT TRAINING [id number] Diagnos is: ICD-10- CM R26.89 Other abnorma lities of gait and mobilit y
SA ERASTO FOSTER 08/30 [place] [facility] [place] [facility] Outpatient Encounter [id number] 09/18 [place] [facility] [place] [facility] Outpatient Encounter [id number] 10/02 [place] [facility] [place] [facility] Outpatient Encounter [id number] Rosa HEWITT 10/02 [place] [facility] [place] [facility] HC PRO PHONE CALL 11-20 MIN [id number] Diagnos is: ICD-10- CM F33.1 Major depress silke disorde r, recurre nt, moderat e
Rosa HEWITT L 10/07 [place] [facility] [place] [facility] Outpatient Encounter [id number] NAHOMY BULLOCK 10/10 [place] [facility] [place] [facility] Outpatient Encounter [id number] NAHOMY BULLOCK 10/10 [place] [facility] [place] [facility] Outpatient Encounter [id number] 10/16 [place] [facility] [place] [facility] Outpatient Encounter [id number] Diagnos is: ICD-10- CM R26.9 Unspeci fied abnorma lities of gait and mobilit y
SEBASTIEN EL 10/21 [place] [facility] [place] [facility] Outpatient Encounter [id number] 10/21 [place] [facility] [place] [facility] Outpatient Encounter [id number] 10/21 [place] [facility] [place] [facility] Outpatient Encounter [id number] MORENA REDD 10/24 [place] [facility] [place] [facility] Outpatient Encounter [id number] 10/28 [place] [facility] [place] [facility] WHEELCHAIR MNGMENT TRAINING [id number] Diagnos is: ICD-10- CM Z74.09 Other reduced mobilit y
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<br/ > CAROLA MAYNARD V 11/20 [place] [facility] [place] [facility] Outpatient Encounter [id number] HERON TAVAREZ 12/05 [place] [facility] [place] [facility] Outpatient Encounter [id number] PRABHA ARDON 12/10 [place] [facility] [place] [facility] Outpatient Encounter [id number] 12/12 [place] [facility] [place] [facility] Outpatient Encounter [id number] 12/18 [place] [facility] [place] [facility] Outpatient Encounter [id number] 12/30 [place] [facility] [place] [facility] Outpatient Encounter [id number] PRABHA ARDON 01/06 [place] [facility] [place] [facility] Outpatient Encounter [id number] Rosa HEWITT L 01/16 [place] [facility] [place] [facility] Outpatient Encounter [id number] Rosa HEWITT L 01/23 [place] [facility] [place] [facility] Outpatient Encounter [id number] 02/04 [place] [facility] [place] [facility] Outpatient Encounter [id number] 03/04 [place] [facility] [place] [facility] Outpatient Encounter [id number] 03/05 [place] [facility] [place] [facility] OFFICE O/P EST MOD 30 MIN [id number] Diagnos is: ICD-10- CM 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<br/ > CAROLA MAYNARD V 03/12 [place] [facility] [place] [facility] Outpatient Encounter [id number] 03/14 [place] [facility] [place] [facility] Outpatient Encounter [id number] ABBY XIE SUZAN Flores 03/25 [place] [facility] [place] [facility] OFFICE O/P [place] HI 40 MIN [id number] Diagnos is: ICD-10- CM 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
EARLE TURNER 04/08 [place] [facility] [place] [facility] Outpatient Encounter [id number] 04/08 [place] [facility] [place] [facility] Outpatient Encounter [id number] ANDERSON ZAMORA 04/09 [place] [facility] [place] [facility] Outpatient Encounter [id number] 04/11 [place] [facility] [place] [facility] Outpatient Encounter [id number] 04/15 [place] [facility] [place] [facility] Outpatient Encounter [id number] 04/21 [place] [facility] [place] [facility] Outpatient Encounter [id number] 05/01 [place] [facility] [place] [facility] Outpatient Encounter [id number] NAHOMY BULLOCK 05/01 [place] [facility] [place] [facility] Outpatient Encounter [id number] DENI THAKKAR Hortencia 05/07 [place] [facility] [place] [facility] Outpatient Encounter [id number] 05/14 [place] [facility] [place] [facility] Outpatient Encounter [id number] NAHOMY BULLOCK 05/21 [place] [facility] [place] [facility] Outpatient Encounter [id number] 05/22 [place] [facility] [place] [facility] Outpatient Encounter [id number] 05/26 [place] [facility] [place] [facility] Outpatient Encounter [id number] 06/02 [place] [facility] [place] [facility] Outpatient Encounter [id number] 06/03 [place] [facility] [place] [facility] ELECTROCAR DIOGRAM REPORT [id number] Diagnos is: ICD-10- CM Z13.6 Encount er for screeni ng for cardiov ascular disorde rs
JAYSON HART RMWil B 06/03 [place] [facility] [place] [facility] ENDOSCOPIC US EXAM ESOPH [id number] Diagnos is: ICD-10- CM K22.89 Other specifi ed disease of esophag us
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<br/ > JADAE RUBINA G 06/03 [place] [facility] [place] [facility] Outpatient Encounter [id number] JADAE RUBINA G 06/03 [place] [facility] [place] [facility] Outpatient Encounter [id number] 06/03 [place] [facility] [place] [facility] Outpatient Encounter [id number] 06/03 [place] [facility] [place] [facility] OFF/OP EST MAY X REQ PHY/QHP [id number] Diagnos is: ICD-10- CM R93.3 Abnorma l finding s on dx imaging of prt digesti ve tract<b r/> SWANDRE,E RUBINA G 06/03 [place] [facility] [place] [facility] Outpatient Encounter [id number] 06/04 [place] [facility] [place] [facility] Outpatient Encounter [id number] 06/08 [place] [facility] [place] [facility] QNHP OL DIG ASSMT&MGMT 5-10 [id number] Diagnos is: ICD-10- CM F33.1 Major depress silke disorde r, recurre nt, moderat e
CHAPO, ELVIN A 06/11 [place] [facility] [place] [facility] Outpatient Encounter [id number] Rosa HEWITT 06/19 [place] [facility] [place] [facility] Outpatient Encounter [id number] 06/22 [place] [facility] [place] [facility] Outpatient Encounter [id number] 06/26 [place] [facility] [place] [facility] Outpatient Encounter [id number] 07/08 [place] [facility] [place] [facility] HC PRO PHONE CALL 5-10 MIN [id number] Diagnos is: ICD-10- CM F33.1 Major depress silke disorde r, recurre nt, moderat e
CAROLA MAYNARD V 07/15 [place] [facility] [place] [facility] Outpatient Encounter [id number] 07/15 [place] [facility] [place] [facility] Outpatient Encounter [id number] 07/16 [place] [facility] [place] [facility] Outpatient Encounter [id number] Sandra AUGUSTE 08/06 [place] [facility] [place] [facility] Outpatient Encounter [id number] JOSE CAMPOVERDE ICA E 08/10 [place] [facility] Social History Combined list of available smoking, tobacco, and other social history from Department of Defense and Veterans Affairs facilities. Social History Type Response Date Comment Sourc e Tobacco smoking status [facility]IS [facility]-TOBACCO USER EVERY DAY 08/20/2022 [facility] History of tobacco use OR-TOBACCO USE WI 30 MIN OF WAKEUP 08/20/2022 [facility] History of tobacco use OR-TOBACCO USER E VERY DAY 09/12/2021 [facility] History of tobacco use OR-TOBACCO USER E VERY DAY 09/01/2020 [facility] History of tobacco use OR-TOBACCO USE CO UNSEL NO 09/27/2019 [facility] History of tobacco use OR-TOBACCO USE WI 30 MIN OF WAKEUP 03/04/2018 [facility] History of tobacco use CURRENT TOBACCO USER 04/22/2017 [facility] History of tobacco use CURRENT TOBACCO USER 04/16/2016 [facility] History of tobacco use CURRENT TOBACCO USER 07/26/2014 [facility] History of tobacco use CURRENT TOBACCO USER 12/31/2013 [facility] History of tobacco use CURRENT TOBACCO USER 09/05/2012 [facility] History of tobacco use CURRENT TOBACCO USER 11/25/2011 [facility] History of tobacco use CURRENT TOBACCO USER 02/08/2011 [facility] History of tobacco use CURRENT TOBACCO USER 05/01/2010 [facility] History of tobacco use CURRENT TOBACCO USER 07/03/2009 [facility] Plan of Care List of future care activities from [facility] facilities. Additional future care activities may be listed in the Assessment and Plan section. Date/Time Care Activity Care Activity Detail Markus zhang 09/23/2023 AMBULATORY - NONE AMBULATORY - NONE [facility] 09/23/2023 AMBULATORY - MEDICINE AMBULATORY - MEDICI NE [facility] 07/18/2023 Laboratory - Chemistry Order CBC BLOOD SP ONCE [facility] 07/18/2023 Laboratory - Chemistry Order IRON GROUP S NADYA [facility] 09/28/2023 Laboratory - Chemistry Order B 12 SERUM S P ONCE [facility] 09/28/2023 Laboratory - Chemistry Order FOLATE SERUM [facility] 09/28/2023 Laboratory - Chemistry Order CBC BLOOD [facility] 09/28/2023 Laboratory - Chemistry Order BAS IC METABOLIC PANEL+MG PLASMA [facility]
--- OUTSIDE RECORDS SUMMARY | 2023-08-21 03:23 | XMS_ITS | Encounter Summary ---
Author Name [facility] Organization [facility] Address [address] [place] [address] Care Team Providers Care Rotoformer Backtender Name Role Phone PETTYKAREN Primary Care Provider Unavailabl e Insurance Providers: All historical and current Section [...] AID (WNR) Aug 08, 2013 MEDICAI D [id number] DERICK SKELTON PATIENT MEDICARE (WNR) MEDICARE (M) PART A Sep 07, 2016 PART A [id number] DERICK SKELTON PATIENT Selected Encounter This section includes the information on record at [place] for the Encounter. Date/Time Encounter Type Encounter Description Reason Provider Source August 07, 2023 02:27 PM Outpatient Encounter ADMIN PAT ACTIVTIES (MASNONCT) TRAM AUGUSTE Gillian Encounter Template Text not used by [place] [...] 20 appointments. The data comes from all [facility]. Appointment Date/Time Appointment Type Appointme nt Facility Name Sep 23, 2023 08:15 AM AMBULATORY - NONE ANDRA CARMONA [facility] Sep 23, 2023 09:15 AM AMBULATORY - MEDICINE TONY WILKERSON [facility] Active, Pending, and Scheduled Orders This section includes a listing of several types of active, pending, and scheduled orders, including clinic medications orders, diagnostic test orders, procedure orders and consult orders; where the start date of the order is 45 days before the date of the Encounter or 45 days after the date of theEncounter. The data comes from all [facility]. Test Date/Time Test Type Test Details Facility Name Jun 27, 2023 12:19 PM Consult Order COMMUNITY CARE-CHIROPRACTIC Cons Box Gluer's Choice [facility] July 18, 2023 12:00 AM Laboratory - Chemi stry Order CBC BLOOD SP ONCE [facility] July 18, 2023 12:00 AM Laboratory - Chemi stry Order IRON GROUP SERUM SP [facility] Social History: Smoking Status (Most [...] 09:15 AM VA-TOBACCO USER EVERY DAY [facility] Tobacco Use History This section includes a history of the smoking, or tobacco-related health factors, that were collected on or before the date of the Encounter. The data comes from the [place] facility where the Encounter took place. Date/Time Smoking Status/Tobacco Use Comment F acility Aug 20, 2022 09:15 AM VA-TOBACCO USE ADVICE [facility] Aug 20, 2022 09:15 AM VA-TOBACCO USE CROSSING TENDER NO [facility] Aug 20, 2022 09:15 AM VA-TOBACCO USE MED NO [facility] Aug 20, 2022 09:15 AM VA-TOBACCO USE [place] 30 MIN OF WAKE UP [facility] Aug 20, 2022 09:15 AM VA-TOBACCO USER EVERY DAY [facility] Sep 12, 2021 09:15 AM VA-TOBACCO USE [address] [facility] Sep 12, 2021 09:15 AM VA-TOBACCO USE ADVICE [facility] Sep 12, 2021 09:15 AM VA-TOBACCO USE CROSSING TENDER NO [facility] Sep 12, 2021 09:15 AM VA-TOBACCO USE MED NO [facility] Sep 12, 2021 09:15 AM VA-TOBACCO USE [place] [address] UP [facility] Sep 12, 2021 09:15 AM VA-TOBACCO USER EVERY DAY [facility] Sep 01, 2020 01:30 PM VA-TOBACCO DOESNT USE [place] [address] [facility] Sep 01, 2020 01:30 PM VA-TOBACCO USE [address] [facility] Sep 01, 2020 01:30 PM VA-TOBACCO USE ADVICE [facility] Sep 01, 2020 01:30 PM VA-TOBACCO USE CROSSING TENDER NO [facility] Sep 01, 2020 01:30 PM VA-TOBACCO USE MED NO [facility] Sep 01, 2020 01:30 PM VA-TOBACCO USER EVERY DAY [facility] Sep 27, 2019 09:35 AM VA-TOBACCO USE [address] [facility] Sep 27, 2019 09:35 AM VA-TOBACCO USE ADVICE [facility] Sep 27, 2019 09:35 AM VA-TOBACCO USE CROSSING TENDER NO [facility] Sep 27, 2019 09:35 AM VA-TOBACCO USE MED NO [facility] Sep 27, 2019 09:35 AM VA-TOBACCO USE [place] [address] UP [facility] Sep 27, 2019 09:35 AM VA-TOBACCO USER EVERY DAY [facility] Mar 04, 2018 01:45 PM VA-TOBACCO USE [address] [facility] Mar 04, 2018 01:45 PM VA-TOBACCO USE ADVICE [facility] Mar 04, 2018 01:45 PM VA-TOBACCO USE CROSSING TENDER NO [facility] Mar 04, 2018 01:45 PM VA-TOBACCO USE MED NO [facility] Mar 04, 2018 01:45 PM VA-TOBACCO USE [place] [address] UP [facility] Mar 04, 2018 01:45 PM VA-TOBACCO USER EVERY DAY [facility] Apr 22, 2017 10:01 AM CURRENT TOBACCO USER [facility] Apr 16, 2016 09:52 AM CURRENT TOBACCO USER [facility] July 26, 2014 09:08 AM CURRENT TOBACCO USER [facility] Dec 31, 2013 10:06 AM CURRENT TOBACCO USER [facility] Sep 05, 2012 09:27 AM CURRENT TOBACCO USER [facility] Nov 25, 2011 09:12 AM CURRENT TOBACCO USER [facility] Feb 08, 2011 10:04 AM CURRENT TOBACCO USER [facility] May 01, 2010 10:24 AM CURRENT TOBACCO USER [facility] Jul 03, 2009 08:42 AM CURRENT TOBACCO USER [facility] Encounter Notes: All associated encounter notes This section contains the clinical notes associated to the Encounter. Date/Time Encounter Note(s) Provider Source August 05, 2023 02:28 PM NONVA NOTE: LOCAL TITLE: [facility] SELF PRESENTING CARE COORD PLAN STANDARD TITLE: NONVA NOTE DATE OF NOTE: AUGUST 05, 2023@14:28 ENTRY DATE: AUGUST 07, 2023@14:28:25 AUTHOR: JOSE LIEBERMAN EXP COSIGNER: URGENCY: STATUS: COMPLETED Emergency Notification Intake Date Presenting to the Facility: July Method of Contact: Notified from [employer] worklist Notification ID: [id number] [facility] Referral #: [facility] Name: Hospital: [facility] Address: City: [place] State: [place] Zip Code: Phone : [facility] Facility Point of Contact: Name: [facility] Chief complaint: HTN/HEADACHE Primary Diagnosis: Disposition Discharged Date of discharge: July Discharge to home /es/ JOSE LIEBERMAN [employer] 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
--- OUTSIDE RECORDS SUMMARY | 2023-08-21 03:23 | XMS_ITS | Encounter Summary ---
Author Name [facility] Organization [facility] Address [address] [place] [address] Care Team Providers Care Telephone Operator Name Role Phone PETYT KAREN Primary Care Provider Unavailabl e Insurance Providers: [...] AID (WNR) Aug 08, 2013 MEDICAI D [id number] [phone] DERICK SKELTON PATIENT MEDICARE (WNR) MEDICARE (M) PART A Sep 07, 2016 PART A [id number] DERICK SKELTON PATIENT Selected Encounter This section includes the information on record at [place] for the Encounter. Date/Time Encounter Type Encounter Description Reason Provider Source Aug 11, 2023 10:17 AM Outpatient Encounter PRIMARY CARE/MEDICINE GLADYS CAMPOVERDE Encounter Template Text not used by [place] Plan of Treatment: Future Appointments (+ 6 months) and Future Tests (+/- 45 days) The Plan of Treatment section includes future care activities for the patient from all [place] treatmentfacilities. This section includes future appointments and future orders which are active, pending or scheduled. Future Appointments This section includes appointments that were scheduled to occur 6 months from the date of the Encounter, up to a maximum of 20 appointments. The data comes from all [place] treatment facilities. Appointment Date/Time Appointment Type Appointme nt Facility Name Sep 23, 2023 08:15 AM AMBULATORY - NONE ANDRA CARMONA [facility] Sep 23, 2023 09:15 AM AMBULATORY - MEDICINE TONY WILKERSON [facility] Active, Pending, and Scheduled Orders This section includes a listing of several types of active, pending, and scheduled orders, including clinic medications orders, diagnostic test orders, procedure orders and consult orders; where the start date of the order is 45 days before the date of the Encounter or 45 days after the date of theEncounter. The data comes from all [place] treatment facilities. Test Date/Time Test Type Test Details Facility Name Jun 27, 2023 12:19 PM Consult Order COMMUNITY CARE-CHIROPRACTIC Cons Marketing Operations Intern's Choice [facility] July 18, 2023 12:00 AM Laboratory - Chemi stry Order CBC BLOOD SP ONCE [facility] July 18, 2023 12:00 AM Laboratory - Chemi stry Order IRON GROUP SERUM SP [facility] Social History: Smoking Status (Most current) and Tobacco Use (All prior to encounter date) This section includes the most current, and the historical, smoking and tobacco- related health factors from the [place] facility where the Encounter took place. Current Smoking Status This section includes the most current smoking, or tobacco-related health factor, from the [place] facility where the Encounter took place. Date/Time Current Smoking Status Comment Facil ity Aug 20, 2022 09:15 AM VA-TOBACCO USER EVERY DAY [facility] Tobacco Use History This section includes a history of the smoking, or tobacco-related health factors, that were collected on or before the date of the Encounter. The data comes from the [place] facility where the Encounter took place. Date/Time Smoking Status/Tobacco Use Comment F acility Aug 20, 2022 09:15 AM VA-TOBACCO USE ADVICE [facility] Aug 20, 2022 09:15 AM VA-TOBACCO USE DIRECTOR OF COLLECTIONS NO [facility] Aug 20, 2022 09:15 AM VA-TOBACCO USE MED NO [facility] Aug 20, 2022 09:15 AM VA-TOBACCO USE [place] 30 MIN OF WAKE UP [facility] Aug 20, 2022 09:15 AM VA-TOBACCO USER EVERY DAY [facility] Sep 12, 2021 09:15 AM VA-TOBACCO USE 30 YEARS OR MORE [facility] Sep 12, 2021 09:15 AM VA-TOBACCO USE ADVICE [facility] Sep 12, 2021 09:15 AM VA-TOBACCO USE DIRECTOR OF COLLECTIONS NO [facility] Sep 12, 2021 09:15 AM VA-TOBACCO USE MED NO [facility] Sep 12, 2021 09:15 AM VA-TOBACCO USE WI 30 MIN OF WAKE UP [facility] Sep 12, 2021 09:15 AM VA-TOBACCO USER EVERY DAY [facility] Sep 01, 2020 01:30 PM VA-TOBACCO DOESNT USE WI 30 MIN WAKEUP [facility] Sep 01, 2020 01:30 PM VA-TOBACCO USE 30 YEARS OR MORE [facility] Sep 01, 2020 01:30 PM VA-TOBACCO USE ADVICE [facility] Sep 01, 2020 01:30 PM VA-TOBACCO USE DIRECTOR OF COLLECTIONS NO [facility] Sep 01, 2020 01:30 PM VA-TOBACCO USE MED NO [facility] Sep 01, 2020 01:30 PM VA-TOBACCO USER EVERY DAY [facility] Sep 27, 2019 09:35 AM VA-TOBACCO USE 30 YEARS OR MORE [facility] Sep 27, 2019 09:35 AM VA-TOBACCO USE ADVICE [facility] Sep 27, 2019 09:35 AM VA-TOBACCO USE DIRECTOR OF COLLECTIONS NO [facility] Sep 27, 2019 09:35 AM VA-TOBACCO USE MED NO [facility] Sep 27, 2019 09:35 AM VA-TOBACCO USE WI 30 MIN OF WAKE UP [facility] Sep 27, 2019 09:35 AM VA-TOBACCO USER EVERY DAY [facility] Mar 04, 2018 01:45 PM VA-TOBACCO USE 30 YEARS OR MORE [facility] Mar 04, 2018 01:45 PM VA-TOBACCO USE ADVICE [facility] Mar 04, 2018 01:45 PM VA-TOBACCO USE DIRECTOR OF COLLECTIONS NO [facility] Mar 04, 2018 01:45 PM VA-TOBACCO USE MED NO [facility] Mar 04, 2018 01:45 PM VA-TOBACCO USE WI 30 MIN OF WAKE UP [facility] Mar 04, 2018 01:45 PM VA-TOBACCO USER EVERY DAY [facility] Apr 22, 2017 10:01 AM CURRENT TOBACCO USER [facility] Apr 16, 2016 09:52 AM CURRENT TOBACCO USER [facility] July 26, 2014 09:08 AM CURRENT TOBACCO USER [facility] Dec 31, 2013 10:06 AM CURRENT TOBACCO USER [facility] Sep 05, 2012 09:27 AM CURRENT TOBACCO USER [facility] Nov 25, 2011 09:12 AM CURRENT TOBACCO USER [facility] Feb 08, 2011 10:04 AM CURRENT TOBACCO USER [facility] May 01, 2010 10:24 AM CURRENT TOBACCO USER [facility] Jul 03, 2009 08:42 AM CURRENT TOBACCO USER [facility] Encounter Notes: All associated encounter notes This section contains the clinical notes associated to the Encounter. Date/Time Encounter Note(s) Provider Source Aug 11, 2023 10:17 AM PRIMARY CARE SECUR E MESSAGING: LOCAL TITLE: PRIMARY CARE SECURE MESSAGING STANDARD TITLE: PRIMARY CARE SECURE MESSAGING DATE OF NOTE: AUG 11, 2023@10:17 ENTRY DATE: AUG 11, 2023@10:17:28 AUTHOR: GLADYS CAMPOVERDE EXP COSIGNER: URGENCY: STATUS: COMPLETED ------Original Message --- Sent: 08/07/2023 07:40 PM ET From: FRANCES SKELTON To: [facility] Primary Care, Rayray Dove (Sherita) Subject: Medication:Acyclovir The recent outbreak of shingles has resolved, could you add refills to have on hand for potential herpes outbreaks. Darryl [phone] (director custom) ------Original Message --- Sent: 08/11/2023 11:17 AM ET From: GLADYS CAMPOVERDE To: FRANCES SKELTON Subject: Medication:Acyclovir Hel, I will forward your request to Dr. Dove for review. Gladys Jackman, brim molder Manager- eYimi/Cliff Haile /marli/ JUJU LOCKEN, RN REGISTERED NURSE Signed: 08/11/2023 10:17 Receipt Acknowledged By: 08/11/2023 14:15 /marli/ KAREN DOVE MD PHYSICIAN, [facility] CAMP[facility]
--- OUTSIDE RECORDS SUMMARY | 2023-08-21 03:24 | XMS_ITS | Clinical Summary ---
Author Organization [employer] [facility] Address [place], [place] [address] Care Team Providers Care Optical Fabrication Technician Name Role Phone Votel, Abimael Montana MD Primary Care Provider + Allergies No known active allergies Medications Medication [...] 09/13/2012 H/O radical prostatectomy 09/13/2012 Overview: 09/01/2012 [facility] Adrenal adenoma 09/03/2011 Low back pain 09/03/2011 Overview: Takes Ibuprofen as needed Neuropathy 09/03/2011 Overview: Uses gabapentin (1600mg four times daily) outpatient. Depression, major Overview: On Effexor outpatient H/O prostate cancer Overview: managed through [facility] Resolved Problems Problem Noted Date Diagnosed Date Resolved Date Cellulitis of Penis and Scotum 09/14/2012 09/15/2012 Prostate cancer 08/19/2012 05/15/2014 Overview: Treatment through [facility] Tobacco abuse 09/03/2011 09/14/2012 Encounters Date Type Department Care Team Description 08/06/2023 9:00 AM CDT Ancillary Procedure [facility] [address] [place] [address] 08/06/2023 Travel from Last 3 Months Immunizations Name Administration Dates Next Due Tdap [...] 07/05/2016 9:48 AM CDT Plan of Treatment Upcoming Encounters Date Type Department Care Team (Late st Contact Info) Description 08/28/2023 12:50 PM CDT Office Visit [facility] [address] [place] [address] Ifrah Smith PA [address] [place] [address] Health Maintenance Due Date Last Done Comments [...] booster 07/02/2021 07/03/2011 COVID-19 vaccine series ( season) 2022 Influenza for age 65+ 11/09/2023 Tdap Completed 07/03/2011 Procedures Procedure Name Priority Date/Time Associated Diagnosis Comments ECHO TTE COMPLETE WO CONTRAST Routine 08/06/2023 9:57 AM CDT Murmur Hypertensive crisis Cocaine use LIPID PANEL Routine 07/13/2013 9:56 AM CDT Routine general medical examination at a health care facility from Last 3 Months or Most Recently Relevant to Health Maintenance Results * ECHO TTE COMPLETE WO CONTRAST (08/06/2023 9:57 AM CDT) AORTIC VALVE MEAN PG 4 mmHg EJECTION FRACTION 76 % LVEDD 4.2 cm Anatomical Region Laterality Modality Ultrasound 08/06/2023 9:23 AM CDT Narrative 08/06/2023 10:41 AM CDT ECHOCARDIOGRAM FRANCES Flores NAFISA ? Accession#: ?? [id number] : ?1950 72 years Study Date: ?? 08/06/2023 9:23:21 AM Gender: M ?BP: ? 103/56 mmHg Height: 183.00 cm ?BSA: ?1.81 m? ? ? Weight: 62.00 kg ? Tech: ? MSR ? Referring MD: CARMELA MACE Site: ? [facility] Reading Location: Mobile [facility] Patient Location: Inpatient. Procedure: 2D, Color Doppler and Spectral Doppler. Indication for study: Murmur; Hypertensive crisis; Cocaine use Cardiac Rhythm: Normal sinus.Study quality: Fair. Final Impressions: 1. Normal left ventricular size, borderline wall thickness, normal global systolic function, calculated EF of 76 %. 2. Right ventricular cavity size is normal, global systolic RV function is normal. 3. No significant valve disease detected. 4. No pericardial effusion. Chamber Sizes and Function Normal left ventricular size, borderline wall thickness, normal global systolic function, calculated EF of 76 %. No definite resting regional wall motion abnormality seen. Left atrial size is normal. Right ventricular cavity size is normal, global systolic RV function is normal. The right atrium is normal. The pulmonary artery is of normal size and origin. The sinus of Valsalva is normal sized. The ascending aorta is normal sized. Valves, RV Pressures and Diastolic Function The aortic valve is normal in structure and trileaflet, no stenosis and mild regurgitation. The mitral valve is normal in structure, trace mitral regurgitation. Normal diastolic function. The tricuspid valve is normal in structure. Tricuspid regurgitation is regurgitation is not evident. The pulmonic valve is normal. No pulmonary regurgitation. Masses, Effusion, Shunts There is no pericardial effusion. The inferior vena cava is normal sized, respiratory size variation greater than 50%. No left to right shunting was detected by limited color flow Doppler interrogation of the interatrial septum. MEASUREMENTS AND CALCULATIONS 2-D Measurements and LV Function: LVID (d) 4.2 cm Planimetered EF 76 % LVID (s) 2.8 cm LV FS% (2D) ? 32 % IVS (d) ??1.1 cm LVOT diameter ?? 2.3 cm LVPW (d) 0.9 cm HR ?53 bpm Ao Sinus 3.4 cm LA Vol index ?24 ml/m2 Asc Ao ?? 3.5 cm RV Max 4C (d) ?? 3.9 cm Diastology: Mitral ?Tissue Doppler E Peak 0.7 m/s ??e', Septum ? 0.08 m/s A Peak 0.7 m/s ??e', Lateral ?0.09 m/s E/A ?1.0 ?E/e' Average ?? 8.68 DT ? 196 msec Aortic Valve: Vmax ? 1.4 m/s ??JACOB (V) ?? 2.60 cm? AI P 1/2 800 msec VTI ?0.33 m ?? JACOB (I) ?? 2.49 cm? ? ? LVOT V max 0.9 m/s ??Max PG ?8 mmHg LVOT VTI ?? 0.20 m ?? Mean PG ?? 4 mmHg SV ? 81 ml ?Dim Index 0.60 SV index ?? 45 ml/m? ? ? CO ?4.3 l/min ?CI ?2.4 l/min/m? ? ? Mitral Valve: MVA ?3.9 cm? ? ? MV P 1/2 57 msec Tricuspid Valve and estimated PA pressures: TAPSE 2.1 cm . This study was interpreted by an [facility] accredited facility. CC: [facility] (med records) [facility], Med/Surg - IP [facility]. ??Final ?? Procedure Note Radha Luevano MD - 08/06/2023 ECHOCARDIOGRAM FRANCES GAGE : 1950 72 years Study Date: 08/06/2023 9:23:21 AM Gender: M BP: 103/56 mmHg Height: 183.00 cm BSA: 1.81 m? ? ? Weight: 62.00 kg Tech: MSR Referring MD: CARMELA MACE Site: [facility] Reading Location: Mobile [facility] Patient Location: Inpatient. Procedure: 2D, Color Doppler and Spectral Doppler. Indication for study: Murmur; Hypertensive crisis; Cocaine use Cardiac Rhythm: Normal sinus.Study quality: Fair. Final Impressions: 1. Normal left ventricular size, borderline wall thickness, normal globalsystolic function, calculated EF of 76 %. 2. Right ventricular cavity size is normal, global systolic RV functionis normal. 3. No significant valve disease detected. 4. No pericardial effusion. Chamber Sizes and Function Normal left ventricular size, borderline wall thickness, normal globalsystolic function, calculated EF of 76 %. No definite resting regionalwall motion abnormality seen. Left atrial size is normal. Rightventricular cavity size is normal, global systolic RV function is normal.The right atrium is normal. The pulmonary artery is of normal size andorigin. The sinus of Valsalva is normal sized. The ascending aorta isnormal sized. Valves, RV Pressures and Diastolic Function The aortic valve is normal in structure and trileaflet, no stenosis andmild regurgitation. The mitral valve is normal in structure, trace mitralregurgitation. Normal diastolic function. The tricuspid valve is normal instructure. Tricuspid regurgitation is regurgitation is not evident. Thepulmonic valve is normal. No pulmonary regurgitation. Masses, Effusion, Shunts There is no pericardial effusion. The inferior vena cava is normal sized,respiratory size variation greater than 50%. No left to right shunting wasdetected by limited color flow Doppler interrogation of the interatrialseptum. MEASUREMENTS AND CALCULATIONS 2-D Measurements and LV Function: LVID (d) 4.2 cm Planimetered EF 76 % LVID (s) 2.8 cm LV FS% (2D) 32 % IVS (d) 1.1 cm LVOT diameter 2.3 cm LVPW (d) 0.9 cm HR 53 bpm Ao Sinus 3.4 cm LA Vol index 24 ml/m2 Asc Ao 3.5 cm RV Max 4C (d) 3.9 cm Diastology: Mitral Tissue Doppler E Peak 0.7 m/s e', Septum 0.08 m/s A Peak 0.7 m/s e', Lateral 0.09 m/s E/A 1.0 E/e' Average 8.68 DT 196 msec Aortic Valve: Vmax 1.4 m/s JACOB (V) 2.60 cm? ? ? AI P 1/2 800 msec VTI 0.33 m JACOB (I) 2.49 cm? ? ? LVOT V max 0.9 m/s Max PG 8 mmHg LVOT VTI 0.20 m Mean PG 4 mmHg SV 81 ml Dim Index 0.60 SV index 45 ml/m? ? ? CO 4.3 l/min CI 2.4 l/min/m? ? ? Mitral Valve: MVA 3.9 cm? ? ? MV P 1/2 57 msec Tricuspid Valve and estimated PA pressures: TAPSE 2.1 cm . This study was interpreted by an [facility] accredited facility. CC: [facility] (med records) [facility] Final Carmela Mace MD ECHO ORD * LIPID PANEL (07/13/2013 9:56 AM CDT) [facility] CHOLESTEROL,TOTAL 198 100 - 199 mg/dL 07/13/2013 8:51 PM CDT [facility] TRIGLYCERIDES 117 <150 mg/dL 07/13/2013 8:51 PM CDT [facility] HDL CHOLESTEROL 55 >40 mg/dL 4 8:51 PM CDT [facility] NON-HDL CHOLESTEROL 143 <145 mg/dl 07/13/2013 8:51 PM CDT [facility] CHOL/HDL RATIO 3.60 <4.50 07/13/2013 8:51 PM CDT [facility] LDL CHOLESTEROL 120 <=130 mg/dL 07/13/2013 8:51 PM CDT [facility] PATIENT STATUS NOT GIVEN 07/13/2013 8:51 PM CDT [facility] Blood specimen (specimen) BLOOD SPECIMEN / Unknown Venipuncture / Unknown 07/13/2013 9:56 AM CDT 07/13/2013 9:56 AM CDT Odin Whitten MD CHEMISTRY [facility] [address] [place] [address], from Last 3 Months or Most Recently Relevant to Health Maintenance Advance Directives * Full Code (Latest Code Status on File) Date Activated Date Inactivated Comments 09/14/2012 1:22 AM 09/15/2012 5:58 PM Care Teams Optical Fabrication Technician Relationship Specialty Start Date End Date Votel, Abimael Montana MD [address] [place] [address] PCP - General Family Practice 08/07/23
== END 2023-08-05 12:08 | disposition home or self-care (01) ==
LOC: AMB 08-21 03:19
PROVIDERS: Visit Provider Emergency Medicine Emergency Medical Services
DX: I10 Essential (primary) hypertension (principal); R51.9 Headache, unspecified
CPT/HCPCS: A0425; A0427

== ENCOUNTER 2023-08-05 12:56 | Observation (INO) | payer OTHER, SELFPAY ==
[2023-08-05] VITALS (36 sets, daily range): BP systolic 132–236; BP diastolic 62–113; PULSE 64–100; RESP 16–18; TEMP 36.1–37.1; O2SAT 91–100; BMI 19.0; BMI 18.4
--- NOTE | 2023-08-05 13:17 | ED_ITS ---
HPI - Headache General Time Seen by Provider: 13:18 Date Seen: 08/05/23 Chief Complaint: Headache/Migraine Stated Complaint: Hypertension Time Seen by Provider: 08/05/23 13:11 Source: patient and RN notes reviewed Mode of arrival: ambulatory Limitations: no limitations History of Present Illness HPI Narrative: This patient is sent by EMS with concern of high blood pressure and headache for 3 weeks. Headache is temporal bilaterally, worsening today. Cannot say if he has any blurry or double vision but describes intermittent yellowing haze of his vision over the last 1 1/2 weeks. He has nausea, has had some vomiting which he attributes to the headache pain. Baseline notes difficulty in his gait, unclear if this is related to alcohol use. He also reports that he has had recent shingles, the rash has gone away, he states it was across his whole low back. He also noted some on his forehead. Was on acyclovir. He thinks he maybe has had fevers. Denies any chronic headache or migraine history. Related Data Home Medications ?Medication ?Instructions ?Recorded ?Confirmed atenolol 50 mg tablet 25 mg PO DAILY 06/24/22 08/05/23 cholecalciferol (vitamin D3) 25 25 mcg PO HS 06/24/22 08/05/23 mcg (1,000 unit) capsule duloxetine 60 mg capsule,delayed 60 mg PO DAILY 06/24/22 08/05/23 release folic acid 1 mg tablet 1 mg PO DAILY 06/24/22 08/05/23 olanzapine 2.5 mg tablet 2.5 mg PO QHS 06/24/22 08/05/23 omeprazole 20 mg capsule,delayed 40 mg PO BID 06/24/22 08/05/23 release trazodone 50 mg tablet 150 mg PO QHS 06/24/22 08/05/23 albuterol 90 mcg/actuation aerosol 2 spray inhalation PRN 08/21/22 12/16/22 inhaler bupropion HCl 100 mg tablet,12 hr mg PO BID 08/21/22 12/16/22 sustained-release Allergies Allergy/AdvReac Type Severity Reaction Status Date / Time No Known Drug Allergies Allergy Verified 08/05/23 13:05 Review of Systems Status of ROS: Reports: 6 or more systems reviewed and unremarkable except as noted in History and below [facility] Medical History Peripheral neuropathy (09/06/11) ?G62.9 - Polyneuropathy, unspecified (ICD-10) Gastroesophageal reflux (09/06/11) ?K21.9 - Gastro-esophageal reflux disease without esophagitis (ICD-10) Depression (09/06/11) ?F32.A - Depression, unspecified (ICD-10) Benign localized hyperplasia of prostate with urinary obstruction (09/06/11) ?N40.1 - Benign prostatic hyperplasia with lower urinary tract symptoms (ICD- 10) ?N13.8 - Other obstructive and reflux uropathy (ICD-10) Ankle fracture (09/06/11) ?S82.899A - Other fracture of unspecified lower leg, initial encounter for closed fracture (ICD-10) Alcohol use disorder ?F10.90 - Alcohol use, unspecified, uncomplicated (ICD-10) Prostate cancer ?C61 - Malignant neoplasm of prostate (ICD-10) Cellulitis of penis (~2012) ?N48.22 - Cellulitis of corpus cavernosum and penis (ICD-10) COPD (chronic obstructive pulmonary disease) ?J44.9 - Chronic obstructive pulmonary disease, unspecified (ICD-10) PTSD (post-traumatic stress disorder) ?F43.10 - Post-traumatic stress disorder, unspecified (ICD-10) Low back pain ?M54.50 - Low back pain, unspecified (ICD-10) Adrenal adenoma ?D35.00 - Benign neoplasm of unspecified adrenal gland (ICD-10) Major depression ?F32.9 - Major depressive disorder, single episode, unspecified (ICD-10) Neuropathy ?G62.9 - Polyneuropathy, unspecified (ICD-10) Surgical History Hx of tonsillectomy ?Z90.89 - Acquired absence of other organs (ICD-10) Status post osteotomy (~1979) ?Z98.890 - Other specified postprocedural states (ICD-10) Hx of colonoscopy (~2010) ?Z98.890 - Other specified postprocedural states (ICD-10) History of ankle surgery (~09/04/11) ?Z98.890 - Other specified postprocedural states (ICD-10) H/O radical prostatectomy ?Z90.79 - Acquired absence of other genital organ(s) (ICD-10) Family History Brother Alcoholism and drug addiction in family Mother Alcoholism and drug addiction in family Throat cancer Sister Obesity Social History Narrative: Lives with younger sister in a house. Smokes less than a pack of cigarettes per day. Drinks 3-4 beers per day. Had one beer with breakfast this morning (like he usually does). He does not remember the last time he went without alcohol for more than 24 hours. Smokes marijuana for anxiety/depression twice a week. FULL CODE. Highest level of school completed/degree received: 12th grade, no diploma Smoking Status: Current every day smoker What tobacco products do you use: cigarettes Do you use any of these nicotine containing products: None Second hand tobacco smoke exposure: No How often do you have a drink containing alcohol: 4 or more times a week How many standard drinks containing alcohol do you have on a typical day: 5 or 6 How often do you have six or more drinks on one occasion: Daily or almost daily AUDIT-C Alcohol total score: 10 Non-prescribed substance use: marijuana (any form) Non-prescribed substance use details: Use very seldom Caffeine: No service: Yes Exam Const: Vital Signs, click to edit/add: Vital Signs - 24 hr 08/05/23 13:06 08/05/23 13:10 08/05/23 13:30 Temperature 98.7 F Pulse Rate 74 76 Pulse Rate [Pulse Oximeter] 71 Respiratory Rate 18 Blood Pressure Blood Pressure [Ri ght Upper Arm] 173/83 H Pulse Oximetry 99 98 100 Oxygen Delivery Me thod Room Air 08/05/23 13:32 08/05/23 14:00 08/05/23 14:02 Temperature Pulse Rate 76 79 81 Pulse Rate [Pulse Oximeter] Respiratory Rate Blood Pressure 149/86 H 191/91 H Blood Pressure [Ri ght Upper Arm] Pulse Oximetry 100 100 100 Oxygen Delivery Me thod 08/05/23 14:03 08/05/23 14:13 08/05/23 14:34 Temperature Pulse Rate 78 83 Pulse Rate [Pulse Oximeter] Respiratory Rate Blood Pressure Blood Pressure [Ri ght Upper Arm] Pulse Oximetry 100 99 97 Oxygen Delivery Me thod 08/05/23 14:35 08/05/23 15:01 08/05/23 15:15 Temperature Pulse Rate 74 85 Pulse Rate [Pulse Oximeter] Respiratory Rate Blood Pressure 191/95 H 183/93 H Blood Pressure [Ri ght Upper Arm] Pulse Oximetry 99 97 Oxygen Delivery Me thod 08/05/23 15:30 08/05/23 15:32 08/05/23 16:00 Temperature Pulse Rate 82 84 80 Pulse Rate [Pulse Oximeter] Respiratory Rate Blood Pressure 207/99 H Blood Pressure [Ri ght Upper Arm] Pulse Oximetry 98 98 94 Oxygen Delivery Me thod 08/05/23 16:02 08/05/23 16:07 08/05/23 16:12 Temperature Pulse Rate 100 74 73 Pulse Rate [Pulse Oximeter] Respiratory Rate Blood Pressure 236/113 H 208/103 H 205/99 H Blood Pressure [Ri ght Upper Arm] Pulse Oximetry 96 92 93 Oxygen Delivery Me thod Patient looks disheveled but is alert and interactive, seems uncomfortable, lying on his side hanging onto an emesis bag. Seems that his pain is limiting his ability to give prolonged history. Pupils are equal round, looks like his eyes might have slight proptosis but seems to be symmetric bilaterally. Maybe some scleral icterus. Is able to speak, speech is normal, symmetrical facial function. Neck supple, no masses noted. Lungs are clear, good air entry, no wheezing or crackles. CV regular rate and rhythm, no murmur, normal S1-S2, no S3-S4. Abdomen is soft no rebound or guarding. Grossly is moving extremities, note no baseline tremors. 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 Patient has 1 small pustular area on minute area of erythema on the right upper occipital area, almost looks like a pimple to me and does not look large enough or consistent with any shingles lesion at this point. Documenting provider has reviewed patient's vital signs: yes Course Course ED Course: Do feel that we need to proceed with head CT imaging rather acutely in this patient. Will get a baseline EKG, have him on appropriate monitoring. Will place an IV, given 2 mg IV morphine and 4 mg IV Zofran for symptom control. Will obtain full complement of labs. With his alcohol history, do want to make sure that there is no acute intracranial bleed or chronic subdural. He recently supposedly had shingles, will monitor for fever here, need to consider infection. This could be complications of alcoholism, hypertensive issues with headache. He could have underlying headache disorder. Reevaluation(s) Time of Reevaluation #1: 14:38 Reevaluation #1: Despite the morphine and Zofran, nursing staff reports patient is still having significant headache and nausea. Will try Reglan 10 mg IV and 25 mg IV Benadryl per migraine protocol and see if this helps. Awaiting labs and CT imaging. His lactate is the only thing that is back cantrell now is just ever so slightly up at 2, will initiate 500 mL of normal saline as well. Time of Reevaluation #2: 15:11 Reevaluation #2: Potassium has come back at 2.9. Will initiate some IV replacement of this is I do not think he is going to be able to tolerate oral replacement yet. His head CT is come back negative, awaiting other labs. May need to talk to Neurology. Time of Reevaluation #3: 15:48 Reevaluation #3: Patient's blood pressures to a 7/95. He is starting the metoclopramide. His sisters are present. Reviewed with him that we will be paging Neurology, do wonder if we should proceed with an MRI. Patient denies any significant history of headaches. Additional Reevaluation(s): 4:42 p.m.: Reviewed with patient that his urine toxicology is positive for methamphetamine, cocaine and THC. He states he last used maybe a week ago. Reviewed with him that it is more likely that he had more recent use based on the positivity of cocaine. He states he did needing use cocaine. I did review with him that it certainly could have been mixed with other substances he was using and he may have very will not even been aware. We did discuss that this very well can adversely affect his blood pressure. My guess is that he has had more recent use than what he is willing to tell us. His systolic blood pressures down to 190. He states his headache is about long term improved. The Reglan and Benadryl have seemed to help. He unfortunately is likely going to need to come in to have further monitoring and observation of his blood pressure. Pulse is currently at 68 after the 2nd 5 mg IV dose of labetalol. He does states that he has been taking his atenolol that is only at 25 mg daily. I do not know if that is for hypertension. His urinalysis is nitrate positive, will initiate Rocephin for presumed UTI. Consultations Consultation #1: Have spoken with the neurologist from [place] Dr. Barrientos. Reviewed case, he doesn't think that this is PRES, would likely show some changes on CT per his report, he did review CT himself. He thinks likely HTN headache and would recommend trial of labetalol. If labetalol and migraine cocktails are not working, can consider CTA just to ensure nothing like venous sinus thrombosis. 5mg IV labetalol ordered. Time: 15:53 Consultation #2: Spoke with the hospitalist Dr. Vargas. Discuss the hypokalemia, treatment of probable UTI. She did want to know if he is symptomatic but reviewed with her that given the positive urine tox, do not completely trust this patient's history, would recommend treatment and did do the 2 g IV Rocephin. Will see where his blood pressure is, he had reported his headache had improved it to this point. Could consider IV hydralazine. This may be difficult to treat, do not want to load this patient with extensive oral medicines as the illicit drug use certainly could be confounding. It is very unlikely that his last use was a week ago. She does accept. Time: 17:03 Vital Signs Vital signs: Initial Vital Signs Temperature 98.7 F 08/05/23 13:06 Temperature Source Temporal Artery Scan 08/05/23 13:06 Pulse Rate 71 08/05/23 13:06 Pulse Rhythm Regular 08/05/23 13:06 Pulse Strength 3+ Normal 08/05/23 13:06 Respiratory Rate 18 08/05/23 13:06 Blood Pressure 173/83 H 08/05/23 13:06 Blood Pressure Mean 113 H 08/05/23 13:06 Blood Pressure Position Semi-Fowlers 08/05/23 13:06 Pulse Oximetry 99 08/05/23 13:06 Oxygen Delivery Method Room Air 08/05/23 13:06 Vital Signs Temperature 98.7 F 08/05/23 13:06 Pulse Rate 71 08/05/23 13:06 Respiratory Rate 18 08/05/23 13:06 Blood Pressure 173/83 H 08/05/23 13:06 Pulse Oximetry 99 08/05/23 13:06 Oxygen Delivery Method Room Air 08/05/23 13:06 Temperature 98.7 F 08/05/23 13:06 Pulse Rate 73 08/05/23 16:12 Respiratory Rate 18 08/05/23 13:06 Blood Pressure 205/99 H 08/05/23 16:12 Pulse Oximetry 93 08/05/23 16:12 Oxygen Delivery Method Room Air 08/05/23 13:06 Medications Administered Medications: Generic Name Dose Route Start Last Admin Trade Name Freq PRN Reason Stop Dose Admin Potassium Chloride 10 meq in 100 mls @ 100 mls/hr 08/05/23 15:15 08/05/23 16:39 Potassium Chloride IVPB 08/05/23 17:44 100 mls/hr Q90M CINTIA Administration Labetalol HCl 5 mg 08/05/23 16:27 08/05/23 16:38 Labetalol Hcl 5 Mg/Ml Inj IVP 08/05/23 16:28 5 mg ONCE ONE Administration Discontinued Medications Generic Name Dose Route Start Last Admin Trade Name Freq PRN Reason Stop Dose Admin Diphenhydramine HCl 25 mg 08/05/23 14:37 08/05/23 15:16 Diphenhydramine 50 Mg/Ml Inj IVP 08/05/23 14:38 25 mg ONCE ONE Administration Sodium Chloride 500 mls @ 500 mls/hr 08/05/23 14:37 08/05/23 16:14 0.9 % Sodium Chloride 500 Ml IV 08/05/23 15:36 Infused .Q1H ONE Infusion Metoclopramide HCl 10 mg/ 102 mls @ 306 mls/hr 08/05/23 14:38 08/05/23 15:35 Sodium Chloride IVPB 08/05/23 14:39 Infused ONCE ONE Infusion Labetalol HCl 5 mg 08/05/23 15:56 08/05/23 16:01 Labetalol Hcl 5 Mg/Ml Inj IVP 08/05/23 15:57 5 mg ONCE ONE Administration Morphine Sulfate 2 mg 08/05/23 13:38 08/05/23 14:02 Morphine 2 Mg/Ml Inj IVP 08/05/23 13:39 2 mg ONCE ONE Administration Ondansetron HCl 4 mg 08/05/23 13:38 08/05/23 14:00 Ondansetron 2 Mg/Ml Inj IVP 08/05/23 13:39 4 mg ONCE ONE Administration MDM - Headache Lab Data Attestation: I reviewed the patient's lab results. Labs: Lab Results 08/05/23 08/05/23 Range/Units 14:00 15:43 WBC 6.64 (4.50-11.00) K/uL RBC 3.59 L (4.30-5.90) m/uL Hgb 11.1 L (13.5-17.5) gm/dL Hct 33.8 L (37.0-53.0) % MCV 94 (80-100) fL MCH 31 (26-34) pg MCHC 33 (32-36) gm/dL RDW Coeff of Nancy 16.9 H (11.5-15.5) % Plt Count 270 (140-440) K/uL Neut % (Auto) 76.3 H (42.0-72.0) % Lymph % (Auto) 14.6 L (20-44) % [place] % (Auto) 6.9 (0.0-11.0) % Eos % (Auto) 0.5 (0.0-7.0) % Baso % (Auto) 0.5 (0.0-3.0) % Neut # (Auto) 5.10 (1.7-7.0) K/uL Lymph # (Auto) 1.00 (0.90-2.90) K/uL [place] # (Auto) 0.50 (0.00-0.90) K/UL Eos # (Auto) 0.03 (0.00-0.50) K/uL Baso # (Auto) 0.03 (0.00-0.30) K/uL Abs Immat Gran (auto) 0.08 (0.00-0.30) K/uL Imm/Tot Granulo (auto) 1.2 % ESR 12 (2-15) mm/hr INR 0.87 L (0.91-1.10) APTT 26 (23-33) Seconds Sodium 133 L (135-149) mmol/L Potassium 2.9 L* (3.6-5.1) mmol/L Chloride 97 (96-114) mmol/L Carbon Dioxide 32 (20-32) mmol/L Anion Gap 4 L (7-15) mEq/L BUN 11 (7-30) mg/dL Creatinine 1.2 (0.5-1.5) mg/dL Estimated Creat Clear 50.71 Estimated GFR 65 ml/min Glucose 83 (60-115) mg/dL Lactate 2.0 H (0.5-1.9) mmol/L Calcium 8.2 L (8.4-10.6) mg/dL Total Bilirubin 0.9 (0.1-1.5) mg/dL Direct Bilirubin 0.5 (0.0-0.5) mg/dL AST 30 (12-35) U/L ALT 12 (4-50) U/L Alkaline Phosphatase 120 (40-150) U/L C-Reactive Protein < 0.5 L (0.5-1.0) mg/dL Total Protein 6.8 (6.0-8.3) g/dL Albumin 3.6 (3.3-5.0) g/dL Procalcitonin 0.16 (<0.50) ng/mL Urine Color Yellow (Yellow) Urine Appearance Cloudy A (Clear) Urine pH 7.0 (5.0-8.5) Ur Specific [place] 1.015 (1.000-1.030) Urine Protein Trace A (Negative) Urine Glucose (UA) Negative (Negative) Urine Ketones Trace A (Negative) Urine Blood Negative (Negative) Urine Nitrite Positive A (Negative) Urine Bilirubin Negative (Negative) Urine Urobilinogen 0.2 (0.2-1.0) Ur Leukocyte Esterase Negative (Negative) Urine RBC 0-2 (0-2) Urine WBC 0-2 (0-5) Ur Squamous Epith Cells None (None-Few) Urine Bacteria Many A (None) Urine Opiates Screen POSITIVE A (Negative) Ur Oxycodone Screen Negative (Negative) Urine Methadone Screen Negative (Negative) Ur Barbiturates Screen Negative (Negative) U Tricyclic Antidepress Negative (Negative) Ur Phencyclidine Scrn Negative (Negative) Ur Amphetamines Screen POSITIVE A (Negative) U Methamphetamines Scrn POSITIVE A (Negative) U Benzodiazepines Scrn Negative (Negative) Urine Cocaine Screen POSITIVE A (Negative) U Marijuana (THC) Screen POSITIVE A (Negative) Ur Drug Screen Comment See Note Ethyl Alcohol < 0.01 L (0.01-0.03) % Imaging Data CT scan - head: Attestation: I have reviewed the pertinent imaging results. My impression: Did visualize the head CT, did not appreciate any acute intracranial bleeding, await Radiology over-read. Radiologist's impression: Patient: FRANCES SKELTON Facility:?[facility] Patient ID:?[id number] Site Patient ID:?[id number]. Site :?[id number] Study:?CT-Head WITHOUT-08/05/2023 2:41:19 PM Ordering Physician:?Kaya Nina Final Report: INDICATION: Severe headache, nausea, history of prostate cancer COMPARISON: None. TECHNIQUE: CT of the head without contrast. Multiplanar reformats are included. FINDINGS: No intracranial hemorrhage. Age-related parenchymal volume loss. No acute or subacute cortically based infarct. Normal appearance of the white matter. No mass or mass effect. Normal ventricles. No skull fractures. No worrisome focal bone lesion. IMPRESSION: No acute intracranial findings. Please note that all CT scans at this facility use dose modulation, iterative reconstruction, and/or weight-based dosing when appropriate to reduce radiation dose to as low as reasonably achievable. Dictated by Lissette Vivas MD @ 08/05/2023 2:51:14 PM (Electronic Signature) ECG Data Attestation: I personally reviewed and interpreted this ECG as follows: (Sinus rhythm, 74 beats per minute. No definitive ischemic change. Q-waves V1 V2.) ECG interpretation date: 08/05/23 ECG interpretation time: 14:18 Prior ECG tracings: not available for review Discharge Plan Discharge Clinical Impression: Headache due to hypertension, Illicit drug use, Acute UTI, Hypokalemia Patient Disposition: Admitted As Observation Prescriptions: No Action bupropion HCl 100 mg tablet sustained-release 12 hr PO BID albuterol 90 mcg/actuation aerosol 2 spray inhalation PRN duloxetine 60 mg capsule,delayed release(DR/EC) 60 mg PO DAILY folic acid 1 mg tablet 1 mg PO DAILY atenolol 50 mg tablet 25 mg PO DAILY omeprazole 20 mg capsule,delayed release(DR/EC) 40 mg PO BID trazodone 50 mg tablet 150 mg PO QHS cholecalciferol (vitamin D3) 25 mcg (1,000 unit) capsule 25 mcg PO HS olanzapine 2.5 mg tablet 2.5 mg PO QHS Follow Up/Referrals: Abimael Rm MD [Referring] -
--- NOTE | 2023-08-05 13:35 | CRLHL7_ITS ---
For Patients: As a result of the Cures Act, medical imaging exams and procedure reports are released immediately into your electronic medical record. You may view this report before your referring provider. If you have questions, please contact your health care provider. INDICATION: Severe headache, nausea, history of prostate cancer COMPARISON: None. TECHNIQUE: CT of the head without contrast. Multiplanar reformats are included. FINDINGS: No intracranial hemorrhage. Age-related parenchymal volume loss. No acute or subacute cortically based infarct. Normal appearance of the white matter. No mass or mass effect. Normal ventricles. No skull fractures. No worrisome focal bone lesion. IMPRESSION: No acute intracranial findings. Please note that all CT scans at this facility use dose modulation, iterative reconstruction, and/or weight-based dosing when appropriate to reduce radiation dose to as low as reasonably achievable. Dictated by Lissette Vivas MD @ 08/05/2023 2:51:14 PM (Electronically Signed)
--- OUTSIDE RECORDS SUMMARY | 2023-08-05 13:54 | XMS_ITS | Encounter Summary ---
Author Name Department of [facility] Organization [facility] of [facility] Address [address] [place] [address] Support Name Relationship Address Phone ANTOINE SKELTON Next of Kin , RADHA [phone] [address] [place] , [place] [phone] ANTOINE SKELTON Next of Kin , RADHA [phone] CARIE CHAVEZ Emergency [place] , [place] Insurance Providers: All historical and current Section Date Range: From patient's date of to the date document was created. This section includes the names of all active insurance providers for the patient. Insurance Provider Type of Coverage Plan Name Start of Policy Coverage End of Policy Coverage Group Number Member ID Insurance Provider's Telephone Number Policy Bailey's Name Patient's Relationship to Policy Bailey MEDICAID (WNR) MEDICAID MEDIC AID (WNR) Aug 08, 2013 MEDICAI D [id number] [phone] DERICK SKELTON PATIENT MEDICARE (WNR) MEDICARE (M) PART A Sep 07, 2016 PART A [id number] [phone] DERICK SKELTON PATIENT Selected Encounter This section includes the information on record at [place] for the Encounter. Date/Time Encounter Type Encounter Description Reason Pro vider Source Aug 21, 2022 01:09 PM Outpatient Encounter ADMIN PAT ACTIVTIES (MASNONCT) KAREN DOVE Encounter Template Text not used by [place] Plan of Treatment: Future Appointments (+ 6 months) and Future Tests (+/- 45 days) The Plan of Treatment section includes future care activities for the patient from all [facility] treatmentfacilities. This section includes future appointments and future orders which are active, pending or scheduled. Future Appointments This section includes appointments that were scheduled to occur 6 months from the date of the Encounter, up to a maximum of 20 appointments. The data comes from all [place] treatment [facility]. Appointment Date/Time Appointment Type Appointme nt Facility Name Aug 30, 2022 10:00 AM AMBULATORY - REHAB MEDICIN E [facility] Oct 16, 2022 01:45 PM [facility] Oct 21, 2022 09:00 AM AMBULATORY - REHAB MEDICIN E [facility] Oct 23, 2022 07:00 [facility] Oct 28, 2022 05:00 PM AMBULATORY - REHAB MEDICIN E [facility] Nov 01, 2022 09:00 AM AMBULATORY - REHAB MEDICIN E [facility] Nov 13, 2022 09:00 AM AMBULATORY - PSYCHIATRY [facility] Nov 20, 2022 08:00 AM AMBULATORY - PSYCHIATRY [facility] Dec 05, 2022 10:15 AM AMBULATORY - SURGERY [facility] Dec 30, 2022 10:15 AM AMBULATORY - SURGERY [facility] Lab Results: +/- 30 days of the encounter This section includes the Chemistry and Hematology Lab Results on record with [place] for the patient. Radiology Reports and Pathology Reports are provided separately, in subsequent sections. Lab Results This section contains the Chemistry/Hematology Results that were resulted 30 days before or 30 daysafter the date of the Encounter. Date/Time Source Result Type Result - Unit Interpretation Reference Range Comment Aug 20, 2022 08:12 AM [facility] PTH-N-TACT Specimen Type: PLASMA No comment entered. Ordering Provider: KAREN DOVE Report Released Date/Time: Aug 19, 2022 04:38 PM Reporting Lab: [facility] [id number] Performing Lab: [facility] [id number] PTH-N-TACT 62.0 8.7-77.1 Aug 20, 2022 08:12 AM [facility] FOLATE Specimen Type: SERUM No comment entered. Ordering Provider: KAREN DOVE Report Released Date/Time: Aug 19, 2022 04:38 PM Reporting Lab: [facility] [address] Performing Lab: [facility] [address] FOLATE 16.5 See_Commen t Aug 20, 2022 08:12 AM [facility] B 12 Specimen Type: SERUM No comment entered. Ordering Provider: KAREN DOVE Report Released Date/Time: Aug 19, 2022 04:38 PM Reporting Lab: [facility] [address] Performing Lab: [place] [id number] B 12 [phone] Aug 20, 2022 08:12 AM [facility] TSH W/REFLEX TO FREE T4 Specimen Type: PLASMA No comment entered. Ordering Provider: KAREN DOVE Report Released Date/Time: Aug 19, 2022 04:38 PM Reporting Lab: [facility] [id number] Performing Lab: [facility] [address] TSH 0.75 0.35-4.94 Aug 20, 2022 08:12 AM [facility] VIT D 25-OH,TOTAL Specimen Type: SERUM No comment entered. Ordering Provider: KAREN DOVE Report Released Date/Time: Aug 19, 2022 04:38 PM Reporting Lab: [facility] [phone] Performing Lab: [facility] [address] VIT D 25-OH,TOTAL 12 12-50 Aug 20, 2022 08:12 AM [facility] RETICS Specimen Type: BLOOD No comment entered. Ordering Provider: KAREN DOVE Report Released Date/Time: Aug 19, 2022 04:38 PM Reporting Lab: [facility] [address] Performing Lab: [facility] [address] ABS RETIC 0.0382 0.0300-0.1 000 .RETICULOCYTE 1.19 0.6-2.0 IMMATURE RETIC 11.5 1.0-14.0 .RETICULOCYTE HE 33.3 28.2-36.6 Aug 20, 2022 08:12 AM [facility] PHOSPHORUS Specimen Type: PLASMA No comment entered. Ordering Provider: KAREN DOVE Report Released Date/Time: Aug 19, 2022 04:38 PM Reporting Lab: [facility] [address] Performing Lab: [facility] [address] PHOSPHORUS 3.5 2.3-4.7 Aug 20, 2022 08:12 AM [facility] PSA Specimen Type: SERUM No comment entered. Ordering Provider: KAREN DOVE Report Released Date/Time: Aug 19, 2022 04:41 PM Reporting Lab: [facility] [address] Performing Lab: [facility] [address] PSA 0.01 See_Commen t Aug 20, 2022 08:12 AM [facility] CBC Specimen Type: BLOOD No comment entered. Ordering Provider: KAREN DOVE Report Released Date/Time: Aug 19, 2022 04:38 PM Reporting Lab: [facility] [address] Performing Lab: [facility] [address] WBC 4.78 4.0-11.0 RBC 3.21 L 4.6-6.2 HGB 10.6 L 13.5-17.9 HCT 32.3 L 41-54 MCV 100.6 H 80-100 MCH 33.0 27-33 MCHC 32.8 32.0-37.5 PLT 172 150-400 MPV 10.4 7.4-10.4 RDW 14.3 11.5-14.5 .RETICULOCYTE HE 33.3 28.2-36.6 Aug 20, 2022 08:12 AM [facility] COMPREHENSIVE METABOLIC PANEL+MG Specimen Type: PLASMA No comment entered. Ordering Provider: KAREN DOVE Report Released Date/Time: Aug 19, 2022 04:38 PM Reporting Lab: [facility] [address] Performing Lab: [facility] [phone] CREATININE 1.2 0.7-1.2 UREA NITROGEN 9 8-26 GLUCOSE 66 L 70-100 SODIUM 138 136-145 POTASSIUM 3.6 3.5-5.1 CHLORIDE 107 98-107 CO2 25 22-29 CALCIUM 8.5 8.4-10.2 PROTEIN,TOTAL 5.9 L 6.0-8.3 ALBUMIN 3.3 L 3.5-5.2 BILIRUBIN, TOTAL 0.3 0.2-1.2 MAGNESIUM 1.8 1.6-2.6 ANION GAP 6 5-15 ALKALINE PHOSPHATASE 93 40-150 ALT/SGPT 11 See_Commen t AST/SGOT 40 H See_Commen t .CREAT EGFR(CKD-EPI) 65 See_Commen t Aug 20, 2022 08:12 AM [facility] METHYLMALONIC ACID Specimen Type: SERUM No comment entered. Ordering Provider: KAREN DOVE Report Released Date/Time: Aug 20, 2022 09:30 AM Reporting Lab: [facility] [address] Performing Lab: [facility] [address] METHYLMALONIC ACID 774 H 0-400 Aug 20, 2022 08:12 AM [facility] FERRITIN Specimen Type: SERUM No comment entered. Ordering Provider: KAREN DOVE Report Released Date/Time: Aug 20, 2022 03:07 PM Reporting Lab: [facility] [phone] Performing Lab: [facility] [address] FERRITIN 29.4 21.8-274.7 Social History: Smoking Status (Most current) and Tobacco Use (All prior to encounter date) This section includes the most current, and the historical, smoking and tobacco- related health factors from the [place] facility where the Encounter took place. Current Smoking Status This section includes the most current smoking, or tobacco-related health factor, from the [place] facility where the Encounter took place. Date/Time Current Smoking Status Comment Silvia adkins Aug 20, 2022 09:15 AM VA-TOBACCO USER EVERY DAY [facility] Tobacco Use History This section includes a history of the smoking, or tobacco-related health factors, that were collected on or before the date of the Encounter. The data comes from the [place] facility where the Encounter took place. 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 [facility] Sep 12, 2021 09:15 AM VA-TOBACCO USE MED NO [facility] Sep 12, 2021 09:15 AM VA-TOBACCO USE WI 30 MIN OF WAKE UP [facility] Sep 12, 2021 09:15 AM VA-TOBACCO USER EVERY DAY [facility] Sep 01, 2020 01:30 PM VA-TOBACCO DOESNT USE WI 30 MIN WAKEUP [facility] Sep 01, 2020 01:30 PM VA-TOBACCO USE 30 YEARS OR MORE [facility] Sep 01, 2020 01:30 PM VA-TOBACCO USE ADVICE [facility] Sep 01, 2020 01:30 PM 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 [facility] Sep 01, 2020 01:30 PM VA-TOBACCO USE MED NO [facility] Sep 01, 2020 01:30 PM VA-TOBACCO USER EVERY DAY [facility] Sep 27, 2019 09:35 AM VA-TOBACCO USE 30 YEARS OR MORE [facility] Sep 27, 2019 09:35 AM VA-TOBACCO USE ADVICE [facility] Sep 27, 2019 09:35 AM 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 [facility] Sep 27, 2019 09:35 AM VA-TOBACCO USE MED NO [facility] Sep 27, 2019 09:35 AM VA-TOBACCO USE WI 30 MIN OF WAKE UP [facility] Sep 27, 2019 09:35 AM VA-TOBACCO USER EVERY DAY [facility] Mar 04, 2018 01:45 PM VA-TOBACCO USE 30 YEARS OR MORE [facility] Mar 04, 2018 01:45 PM VA-TOBACCO USE ADVICE [facility] Mar 04, 2018 01:45 PM 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 [facility] Mar 04, 2018 01:45 PM VA-TOBACCO USE MED NO [facility] Mar 04, 2018 01:45 PM VA-TOBACCO USE WI 30 MIN OF WAKE UP [facility] Mar 04, 2018 01:45 PM VA-TOBACCO USER EVERY DAY [facility] Apr 22, 2017 10:01 AM CURRENT TOBACCO USER [facility] Apr 16, 2016 09:52 AM CURRENT TOBACCO USER [facility] July 26, 2014 09:08 AM CURRENT TOBACCO USER [facility] Dec 31, 2013 10:06 AM CURRENT TOBACCO USER [facility] Sep 05, 2012 09:27 AM CURRENT TOBACCO USER [facility] Nov 25, 2011 09:12 AM CURRENT TOBACCO USER [facility] Feb 08, 2011 10:04 AM CURRENT TOBACCO USER [facility] May 01, 2010 10:24 AM CURRENT TOBACCO USER [facility] Jul 03, 2009 08:42 AM CURRENT TOBACCO USER [facility] Radiology Reports: +/- 30 days of the encounter Radiology Reports For cases when an order for radiology services may have been completed prior to the date of the Encounter, the report list includes the Radiology Reports that were completed up to 30 days before dateof the Encounter. For cases when an order for radiology services may have been completed after the date of the Encounter, the report list also includes the Radiology Reports that were completed up to30 days after date of the Encounter. The data comes from all [place] treatment facilities. Date/Time Radiology Report Provider Source Aug 20, 2022 10:08 AM LDCT LUNG CANCER SCREENING: FRANCES SKELTON [id number] -[id number] M Exm Date: AUG 20, 2022@10:08 Req Phys: KAREN DOVE Loc: [facility] PACT CHANTEL 4D (Req'g Loc) Img Loc: CT IMAGING Service: Unknown (Case [id number] COMPLETE) LDCT LUNG CANCER SCREENING (CT Detailed) CPT:73142 Reason for Study: LDCT f/u of a LUNGRADS 2B pulm nodule (FOLLOW UP) Clinical History: IS NOT under investigation for COVID-19 or is COVID-19 negative LDCT f/u of a LUNGRADS 2B pulm nodule (FOLLOW UP) Responsible provider name and phone number to notify for critical findings if other than user placing the order and pager listed below: User placing orders pager: LAST 3: Collection DT Specimen Test Name Result Units Ref Range 01/29/2021 08:52 PLASMA CREATININE 0.8 mg/dL 0.7 - 1.2 06/06/2018 05:30 PLASMA CREATININE 1.0 mg/dL .7 - 1.2 05/21/2018 07:50 PLASMA CREATININE 0.9 mg/dL .7 - 1.2 01/29/2021 08:52 PLASMA ESTIMATED GFR(eGF >60 Ref: >=60 06/06/2018 05:30 PLASMA ESTIMATED GFR(eGF >60 Ref: >=60 05/21/2018 07:50 PLASMA ESTIMATED GFR(eGF >60 Ref: >=60 Allergies: BUTORPHANOL (Jul 03, 2009) BEE VENOM (July 13, 2019) Report Status: Verified Date Reported: AUG 20, 2022 Date Verified: AUG 20, 2022 Configuration Analyst E-Sig:/ES/JUAN MANUEL SHIELDS MD Report: EXAM: LDCT LUNG CANCER SCREENING 08/20/2022 ADDITIONAL HISTORY: LDCT f/u of a LUNGRADS 2B pulm nodule (FOLLOW UP) COMPARISON: Previous dated 05/28/2021, 02/27/2021, 12/07/2019, 10/22/2018, 06/06/2018, 06/02/2017, 06/08/2014. PET scan dated 03/27/2021. PROTOCOL: Screening protocol, low dose, non-contrast CT chest was performed in accordance with Lung-Rads 2022. Additional coronal and sagittal reconstructions. MIP reconstructions were reviewed. Secondary computer-aided detection post-processing used. DOSE PARAMETERS: DLP: 32.36, mGy.cm/CTDIvol Mean: 0.84, mGy INDEX NODULE: Location: Right Upper Lobe Image: 88 Series: 2 Density: Solid Solid diameter (average): 3 mm Other characteristics: Smooth Change: New since 05/28/2021 Comments: Peripheral OTHER NODULES: 2 mm peripheral nodule in the anterolateral right upper lobe image 83 series 2 new since prior. A few other scattered nodules as seen on series 2 unchanged for example, a 4 mm groundglass nodule in the medial right lung apex image 40 unchanged since 2020, 2 mm subpleural nodule in the lateral right lower lobe image 178, 2.5 mm nodule in the posterolateral left upper lobe image 56 unchanged since 2019. LUNG/AIRWAY FINDINGS: Stable linear fibrotic changes in the right upper lobe, left upper lobe, right middle lobe and lung bases. Previously noted subpleural nodule in the anterior left upper lobe has resolved with mild subpleural scarring persisting images 132-139 series 2. No discrete infiltrates. No effusions. EMPHYSEMA: Mild HEART, MEDIASTINUM AND LYMPH NODES: Coarse calcification in the right lobe of the thyroid image 48 series 4 unchanged since at least 2014. Atherosclerotic thoracic aorta. Great vessels of normal caliber. Mild aortic annular calcifications. Heart size within normal. No pericardial effusion. No significant mediastinal lymphadenopathy by size criteria. Tiny calcified right hilar lymph node. Esophagus unremarkable. Mucus along the posterior wall of the right mainstem bronchus. Central tracheobronchial tree clear. VISUAL CORONARY ARTERY CALCIFICATIONS: Moderate UPPER ABDOMEN: Cortical scarring along the anterolateral aspect of the upper pole left kidney unchanged in appearance compared to prior PET scan dated 11/25/2021. Bilateral adrenal nodules unchanged and previously characterized as adenoma in 2016. Atherosclerotic proximal abdominal aorta partially imaged. Atrophic pancreas unchanged. Calcified splenic granuloma. BONES AND SOFT TISSUES: Thoracic degenerative changes. Old healed left rib fractures. No acute osseous findings. Degenerative changes in both shoulders. No axillary lymphadenopathy. OTHER FINDINGS: None significant Impression: LUNG-RADS: 2: Benign FINDINGS: 1. Previously noted subpleural spiculated nodule in the left upper lobe has resolved. Interval development of a 3 mm nodule and adjacent to millimeters nodule in the right upper lobe new since prior. A few other scattered nodules unchanged as described above. 2. Other stable incidental findings as described above. RECOMMENDATION: One year follow-up low dose CT, if patient meets screening criteria. LUNG-RADS MODIFIER: N/A OTHER SIGNIFICANT FINDINGS AND RECOMMENDATIONS: None significant. Primary Interpreting Staff: JUAN MANUEL SHIELDS MD, RADIOLOGIST (Configuration Analyst) /JUAN MANUEL [place] [facility] Encounter Notes: All associated encounter notes This section contains the clinical notes associated to the Encounter. Date/Time Encounter Note(s) Provider Source Aug 21, 2022 01:11 PM LETTERS: LOCAL TITLE: FOLLOW UP RESULTS LETTER STANDARD TITLE: LETTERS DATE OF NOTE: AUG 21, 2022@13:11 ENTRY DATE: AUG 21, 2022@13:11:59 AUTHOR: SIOMARA MCCRAY EXP COSIGNER: URGENCY: STATUS: COMPLETED [facility] [address] [place] [address] Aug FRANCES SKELTON [address] [facility] [address] [place]: Your recent chest imaging on Aug showed: no significant change in your lung nodule(s) since your last scan. in addition you have a new small nodule(s). *THIS IS IMPORTANT: Your next scan is due in AUGUST 2023. You will be called to schedule the appointment. If you are scheduled for a scan in the future and you have symptoms of a chest cold at that time, please call number on appointment letter to reschedule for four weeks after symptoms improve. If you have any further questions or problems, please contact Lung Cancer Screening staff at [phone]. SIOMARA MCCRAY RN, BSN PULMONARY/LCS AUDIT CLERK SIOMARA MCCRAY [facility] Aug 21, 2022 01:09 PM PULMONARY NOTE: LOCAL TITLE: PULMONARY LUNG CANCER SCREENING STANDARD TITLE: PULMONARY NOTE DATE OF NOTE: AUG 21, 2022@13:09 ENTRY DATE: AUG 21, 2022@13:09:21 AUTHOR: SIOMARA MCCRAY EXP COSIGNER: URGENCY: STATUS: COMPLETED FOLLOW-UP TRACKING/SURVEILLANCE of lung nodule that already had initial nodule documentation. Date of most recent follow-up image: Date: August 20, 2022 Different highest risk nodule. Follow up LDCT results Highest risk nodule description: Size in mm: <4mm No incidental findings were noted. Plan: Interval until next LDCT scan is due: 12 months Patient Notification of results: Results letter sent to patient. /es/ SIOMARA MCCRAY RN, BSN PULMONARY/LCS AUDIT CLERK Signed: 08/21/2022 13:11 SIOMARA MCCRAY [facility]
--- OUTSIDE RECORDS SUMMARY | 2023-08-05 13:54 | XMS_ITS | Continuity of Care Document ---
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 It does not include entries that were removed or entered in error. Problem Status Onset Date Problem Type Date of Resolution Comments Source Exposure to potentially hazardous substance ([facility] [id number]) Active 024 Condition May 14, 2023 Entered By: SMITH COTTON [facility]: [facility]EL Documentation Initiative [facility] Alcohol Abuse (SCT 88177781) Active Condition [facility] Chronic post-traumatic stress disorder following combat (SNOMED CT 885694298) Active Condition [facility] COPD - Chronic Obstructive Pulmonary Disease (SCT 72998318) Active Condition [facility] Depression (SNOMED CT 31601653) Active Condition [facility] Dysphagia Active Condition Mar 31 Entered By: KAREN DOVE Comment: 2/2 esophagogastric junction outlet obstructionMar 31, 2023 Entered By: KAREN DOVE Comment: esophageal manometry suggestive of EGJOOMar 31, 2023 Entered By: KAREN DOVE Comment: s/p Botox injections at the GE junction [facility] Gastritis Active Condition Mar 31 Entered By: KAREN DOVE Comment: suspected NSAID-induced 2014 +/- EtOH: remains on PPI [facility] Genital herpes simplex Active Condition May 26, 2023 Entered By: KAREN DOVE Comment: Uses PRN acyclovir [facility] Heavy tobacco smoker (SNOMED CT 166319031174988) Active Condition [facility] History of Polyp of Colon (SCT 018265415) Active Condition Mar 31, 2023 Entered By: KAREN DOVE Comment: last colonoscopy 06/21/2013 notable for hyperplastic polyp w/ repeat due June 2023 for screening purposes [facility] Idiopathic chronic neuropathy (SNOMED CT 776587302) Active Condition Mar 31, 2023 Entered By: KAREN DOVE Comment: EMG-proven [facility] Insomnia (SCT 824778367) Active Condition [facility] Lumbar spondylosis Active Condition [facility] Macrocytic anemia Active Condition Mar 31, 2023 Entered By: KAREN DOVE Comment: 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 [facility] Osteopenia Active Condition Mar 31 Entered By: KAREN DOVE Comment: per 10/2022 DEXA [facility] Prostate Cancer (SCT 959390101) Active Condition Mar 31, 2023 Entered By: KAREN DOVE Comment: status post radical retroprostatectomy 2013 complicated by incontinence [facility] Recurrent falls Active Condition Mar 31, 2023 Entered By: KAREN DOVE Comment: Likely driven by of his severe lower extremity neuropathy [facility] Vitamin B12 deficiency (non anemic) Active Condition [facility] Vitamin D deficiency Active Condition [facility] Adrenal mass (SNOMED CT 658039954) Inactive Condition 03/31/2023 [facility] Diagnosis: ICD-10-CM F33.1 Major depressive disorder, recurrent, moderate Active Diagnosis [facility] Diagnosis: ICD-10-CM R93.3 Abnormal findings on dx imaging of prt digestive tract Active Diagnosis [facility] Diagnosis: ICD-10-CM Z71.6 Tobacco abuse counseling Active Diagnosis [facility] Diagnosis: ICD-10-CM K22.89 Other specified disease of esophagus Active Diagnosis [facility] Diagnosis: ICD-10-CM Z13.6 Encounter for screening for cardiovascular disorders Active Diagnosis [facility] Diagnosis: ICD-10-CM K31.819 Angiodysplasia of stomach and duodenum without bleeding Active Diagnosis [facility] Diagnosis: ICD-10-CM Z74.09 Other reduced mobility Active Diagnosis [facility] Diagnosis: ICD-10-CM R26.9 Unspecified abnormalities of gait and mobility Active Diagnosis [facility] Diagnosis: ICD-10-CM R26.89 Other abnormalities of gait and mobility Active Diagnosis [facility] Diagnosis: ICD-10-CM G60.3 Idiopathic progressive neuropathy Active Diagnosis [facility] Diagnosis: ICD-10-CM Z71.9 Counseling, unspecified Active Diagnosis [facility] Diagnosis: ICD-10-CM R52 Pain, unspecified Active Diagnosis [facility] Medications Combined list of outpatient medications from Department of Defense and Veterans Affairs facilities.Medications provided include 1) outpatient medications from the last 15 months, and 2) patient-reported medications. Medication Details Route Status Patient Instructions Prescription Expires Prescription Number Last Dispense Date Ordering Provider Order Date Order Qty Source ACYCLOVIR 200MG CAP TAKE TWO CAPSULES BY MOUTH THREE TIMES A DAY FOR HSV ORALLY ACTIVE 08/13/2023 [id number] 4 KAREN DOVE 2023 42 [facility] ACYCLOVIR 200MG CAP TAKE TWO CAPSULES BY MOUTH THREE TIMES A DAY ORALLY DISCONT INUED 01/17/2023 [id number] 3 KAREN DOVE 2022 30 [facility] ACYCLOVIR 200MG CAP TAKE TWO CAPSULES BY MOUTH THREE TIMES A DAY FOR HSV ORALLY 06/25/2023 [id number] 4 KAREN DOVE 2023 42 [facility] ACYCLOVIR 200MG CAP TAKE TWO CAPSULES BY MOUTH THREE TIMES A DAY ORALLY 05/01/2023 [id number] 4 KAREN DOVE 2023 60 [facility] ALBUTEROL 90MCG/ACTUA T (CFC-F) INHL,ORAL,8 .5GM DOSE COUNTER INHALE 2 PUFFS BY INHALATI ON FOUR TIMES A DAY NEEDED FOR IMMEDIAT E RELIEF OF SHORTNES S OF BREATH *SHAKE WELL* INHALA TION 01/30/2023 [id number] 3 KAREN DOVE 2021 2 [facility] ATENOLOL 25MG TAB TAKE ONE TABLET BY MOUTH EVERY DAY FOR ANXIETY FOR ANXIETY ORALLY ACTIVE 11/21/2023 [id number] 3 JESUS MAYNARD E V 2022 90 [facility] ATENOLOL 25MG TAB TAKE ONE TABLET BY MOUTH EVERY DAY FOR ANXIETY FOR ANXIETY ORALLY DISCONT INUED 04/03/2023 [id number] 3 KAREN DOVE 2022 90 [facility] CARBOXYMETH YLCELLULOSE NA 0.5% SOLN,OPH INSTILL 1 DROP IN BOTH EYES FOUR TIMES A DAY NEEDED FOR DRY EYES BOTH EYES ACTIVE 08/21/2023 [id number] 4 PETTY,KAREN B 2022 15 [facility] CELECOXIB 100MG CAP TAKE ONE CAPSULE BY MOUTH TWICE A DAY FOR PAIN ORALLY DISCONT INUED 06/15/2023 [id number] 4 PETTY,KAREN B 2023 180 [facility] CELECOXIB 100MG CAP TAKE ONE CAPSULE BY MOUTH TWICE A DAY FOR PAIN ORALLY DISCONT INUED 02/23/2023 [id number] 3 PETTY,KAREN B 2022 180 [facility] CELECOXIB 100MG CAP TAKE ONE CAPSULE BY MOUTH TWICE A DAY FOR PAIN ORALLY DISCONT INUED 10/07/2022 [id number] 3 PETTY,KAREN B 2022 180 [facility] CHOLECALCIF SHAKIRA 25MCG (1,000UNIT) TAB TAKE ONE TABLET BY MOUTH EVERY DAY FOR VITAMIN D ORALLY ACTIVE 08/21/2023 [id number] 4 PETTY,KAREN B 2022 100 [facility] CYANOCOBALA MIN 1000MCG TAB TAKE ONE TABLET BY MOUTH EVERY DAY FOR B12 ORALLY ACTIVE 08/23/2023 [id number] 4 PETTY,KAREN B 2022 100 [facility] DULOXETINE HCL 20MG CAP,EC TAKE FOUR CAPSULES BY MOUTH EVERY DAY FOR ANXIETY, PAIN, AND DEPRESSI ON ORALLY DISCONT INUED 10/10/2023 [id number] JESUS MAYNARD V 2022 120 [facility] DULOXETINE HCL 30MG CAP,EC TAKE THREE CAPSULES BY MOUTH EVERY MORNING FOR DEPRESSI ON ORALLY SUSPEND ED 07/16/2024 [id number] 4 JESUS MAYNARD V 2023 270 [facility] DULOXETINE HCL 30MG CAP,EC TAKE THREE CAPSULES BY MOUTH EVERY MORNING FOR DEPRESSI ON ORALLY DISCONT INUED 03/15/2024 [id number] JESUS MAYNARD V 2023 270 [facility] DULOXETINE HCL 30MG CAP,EC TAKE THREE CAPSULES BY MOUTH EVERY MORNING FOR DEPRESSI ON ORALLY 02/18/2023 [id number] 3 JESUS MAYNARD V 2022 270 [facility] DULOXETINE HCL 60MG CAP,EC TAKE ONE CAPSULE BY MOUTH EVERY DAY FOR ANXIETY FOR ANXIETY, PAIN, AND DEPRESSI ON ORALLY DISCONT INUED (EDIT) 08/14/2023 [id number] 3 JESUS MAYNARD V 2022 30 [facility] DULOXETINE HCL 60MG CAP,EC TAKE ONE CAPSULE BY MOUTH EVERY DAY FOR ANXIETY FOR ANXIETY, PAIN, AND DEPRESSI ON ORALLY DISCONT INUED 06/04/2023 [id number] 3 JESUS MAYNARD V 2022 30 [facility] EPINEPHRINE (EQV-EPI-PE N) 0.3MG/0.3ML INJECTOR INJECT 1 PEN DIRECTED ONCE NEEDED FOR ALLERGIC REACTION ACTIVE 08/30/2023 [id number] NYDIA MONTIEL 2022 2 [facility] FERROUS GLUCONATE 324MG TAB TAKE ONE TABLET BY MOUTH EVERY OTHER DAY FOR ANEMIA ORALLY SUSPEND ED 04/01/2024 [id number] 4 PETTY,KAREN B 2023 100 [facility] FOLIC ACID 1MG TAB TAKE ONE TABLET BY MOUTH EVERY DAY ORALLY SUSPEND ED 03/17/2024 [id number] 4 PETTY,KAREN B 2023 90 [facility] FOLIC ACID 1MG TAB TAKE ONE TABLET BY MOUTH EVERY DAY ORALLY DISCONT INUED 03/27/2023 [id number] MARCIAL DOVEO B 2022 90 [facility] LIDOCAINE 5% PATCH APPLY 1 PATCH TOPICALL Y EVERY DAY FOR UP TO 12 HOURS FOR PAIN TOPICA LLY 04/03/2023 [id number] 3 PETTY,KAREN B 2022 30 [facility] NALOXONE HCL 4MG/SPRAY SOLN,SPRAY, NASAL SPRAY 1 DOSE IN ONE NOSTRIL DIRECTED FOR UNRESPON SIVENESS THEN CALL 911 - IF NO CHANGE IN 2-3 MINUTES, GIVE SECOND DOSE IN OPPOSITE NOSTRIL NOSTRI L 06/28/2023 [id number] 3 [facility] 2022 2 [facility] OLAN[facility] 2.5MG TAB TAKE ONE TABLET BY MOUTH AT BEDTIME FOR IRRITABI LITY AND SLEEP ORALLY SUSPEND ED 07/16/2024 [id number] 4 JESUS MAYNARD V 2023 90 [facility] OLANZAPINE 2.5MG TAB TAKE ONE TABLET BY MOUTH AT BEDTIME FOR IRRITABI LITY AND SLEEP ORALLY DISCONT INUED 03/12/2024 [id number] 4 JESUS MAYNARD V 2023 90 [facility] OLAN[facility] 2.5MG TAB TAKE ONE TABLET BY MOUTH AT BEDTIME FOR IRRITABI LITY AND SLEEP ORALLY DISCONT INUED 11/21/2023 [id number] 3 JESUS MAYNARD V 2022 30 [facility] OLAN[facility] 2.5MG TAB TAKE ONE TABLET BY MOUTH AT BEDTIME FOR IRRITABI LITY AND SLEEP ORALLY DISCONT INUED 08/23/2023 [id number] 3 JESUS MAYNARD V 2022 30 [facility] OLANZAPINE 2.5MG TAB TAKE ONE TABLET BY MOUTH AT BEDTIME FOR IRRITABI LITY AND SLEEP ORALLY DISCONT INUED 05/03/2023 [id number] 3 JESUS MAYNARD V 2022 30 [facility] OLODATEROL 2.5MCG/TIOT ROPIUM 2.5MCG/ACTU AT INHL,ORAL,6 0D,4GM INHALE 2 PUFFS BY INHALATI ON EVERY DAY FOR COPD INHALA TION ACTIVE 08/21/2023 [id number]AREN DOVE [address] [facility] OMEPRAZOLE 20MG CAP,EC TAKE TWO CAPSULES BY MOUTH TWICE A DAY ON AN EMPTY STOMACH, AT LEAST 30 MINUTES PRIOR TO A MEAL TO DECREASE STOMACH ACID ORALLY ACTIVE 01/08/2024 [id number] 4 PETTY,KAREN B 2022 360 [facility] OMEPRAZOLE 20MG CAP,EC TAKE TWO CAPSULES BY MOUTH TWICE A DAY ON AN EMPTY STOMACH, AT LEAST 30 MINUTES PRIOR TO A MEAL TO DECREASE STOMACH ACID ORALLY DISCONT INUED 09/25/2022 [id number] 3 PETTY,KAREN B 2021 360 [facility] OMEPRAZOLE 40MG CAP,EC TAKE ONE CAPSULE BY MOUTH TWICE A DAY FOR STOMACH ACID ORALLY ACTIVE 01/07/2024 [id number] 4 PETTY,KAREN B 2022 180 [facility] ONDANSETRON HCL 4MG TAB TAKE ONE TABLET BY MOUTH EVERY DAY NEEDED FOR NAUSEA ORALLY ACTIVE 05/13/2024 [id number] 4 PETTY,KAREN B 2023 30 [facility] OXYCODONE HCL 5MG TAB TAKE ONE TABLET BY MOUTH EVERY 4 HOURS NEEDED FOR PAIN ORALLY DISCONT INUED 08/14/2022 [id number] 3 PETTY,KAREN B 2022 56 [facility] OXYCODONE HCL 5MG TAB TAKE ONE TABLET BY MOUTH EVERY 4 HOURS NEEDED FOR PAIN ORALLY DISCONT INUED 07/27/2022 [id number] PETTY,KAREN B 2022 84 [facility] PYRIDOXINE HCL 50MG TAB TAKE 1/2 TABLET BY MOUTH EVERY DAY ORALLY 04/03/2023 [id number] 3 PETTY,KAREN B 2022 100 [facility] SILDENAFIL CITRATE 100MG TAB TAKE ONE TABLET BY MOUTH EVERY DAY NEEDED 1 HOUR BEFORE ANTICIPA YAKOV SEXUAL ACTIVITY . FOR ERECTION S. ORALLY ACTIVE 01/29/2024 [id number] 4 PETTY,KAREN B 2022 6 [facility] SILDENAFIL CITRATE 100MG TAB TAKE ONE TABLET BY MOUTH EVERY DAY NEEDED 1 HOUR BEFORE ANTICIPA YAKOV SEXUAL ACTIVITY . FOR ERECTION S. ORALLY DISCONT INUED 04/03/2023 [id number] 3 KAREN DOVE B 2022 6 [facility] THIAMINE 100MG TAB TAKE ONE TABLET BY MOUTH EVERY DAY ORALLY SUSPEND ED 04/01/2024 [id number] 4 KAREN DOVE B 2023 100 [facility] THIAMINE 100MG TAB TAKE ONE TABLET BY MOUTH EVERY DAY ORALLY DISCONT INUED 04/03/2023 [id number] 3 KAREN DOVE B 2022 100 [facility] TRAZODONE HCL 150MG TAB TAKE ONE TABLET BY MOUTH AT BEDTIME FOR SLEEP ORALLY SUSPEND ED 07/16/2024 [id number] 4 JESUS MAYNARD V 2023 90 [facility] TRAZODONE HCL 150MG TAB TAKE ONE TABLET BY MOUTH AT BEDTIME FOR SLEEP ORALLY DISCONT INUED 03/12/2024 [id number] 4 JESUS MAYNARD V 2023 90 [facility] TRAZODONE HCL 150MG TAB TAKE ONE TABLET BY MOUTH AT BEDTIME FOR SLEEP ORALLY DISCONT INUED 04/06/2023 [id number] JESUS MAYNARD V 2022 90 [facility] TRAZODONE HCL 50MG TAB TAKE THREE TABLETS BY MOUTH AT BEDTIME ORALLY DISCONT INUED 11/19/2023 [id number] 3 JESUS MAYNARD V 2022 270 [facility] TRAZODONE HCL 50MG TAB TAKE THREE TABLETS BY MOUTH AT BEDTIME ORALLY DISCONT INUED 09/27/2022 [id number] JESUS MAYNARD V 2021 270 [facility] Allergies, Adverse Reactions, Alerts Combined list of allergies from Department of Defense and Veterans Affairs facilities. It does not include entries that were removed or entered in error. Substance Category Reaction Severity Reaction type Status Date Reported Comments Source BEE VENOM Propensity to adverse reaction (finding) Swelling, Sweating, Discolorati on of skin active 0 [facility] BUTORPHANOL Propensity to adverse reactions to drug (finding) Hallucinati ons active 0 [facility] Immunizations Combined list of available immunizations from the Department of Defense and Veterans Affairs facilities. Immunization Series Date Given Administered By Site Reaction Lot Number CVX Code Drug Rail Setter Status Comments Source ZOSTER RECOMBINANT [address] [facility] INFLUENZA, INJECTABLE, QUADRIVALENT, PRESERVATIVE FREE [address] [facility] PNEUMOCOCCAL POLYSACCHARID E PPV23 2019 33 complet ed Merck[employer]ar p [id number] [facility] ZOSTER RECOMBINANT [address] [facility] PNEUMOCOCCAL CONJUGATE PCV 13 [address] [facility] TDAP [address] [facility] INFLUENZA, SEASONAL, INJECTABLE, PRESERVATIVE FREE [address] [facility] INFLUENZA, UNSPECIFIED FORMULATION [address] [facility] TDAP 2013 115 complet ed Glaxo nogueira joe,5SR 2L, [facility] INFLUENZA, UNSPECIFIED FORMULATION [address] [facility] ZOSTER LIVE [address] [facility] ZOSTER LIVE [address] [facility] TDAP [address] [facility] PNEUMOCOCCAL, UNSPECIFIED FORMULATION 2009 109 complet ed sanofi pasteur,u [id number],05/18 [facility] TD(ADULT) UNSPECIFIED FORMULATION [address] [facility] DT (PEDIATRIC) [address] [facility] Results Combined list of recent chemistry, hematology and other laboratory results from Department of Defense and Veterans Affairs, ranging from 15 months to all on record, depending upon the facility. Order Name Results Value Reference Range Date Interpretation Specimen Comments Source B 12 COBALAMIN (VITAMIN B12) [MASS/VOLUM E] IN SERUM OR PLASMA 1040 213 - 206 04/01 H Specimen Type: SERUM No comment entered. Ordering Provider: KAREN DOVE Report Released Date/Time: Aug 20, 2022 09:56 AM Reporting Lab: [facility] [phone] Performing Lab: [facility] [address] [place] [facility] FOLATE FOLATE [MASS/VOLUM E] IN SERUM OR PLASMA 13.6 7.0 04/01 Specimen Type: SERUM No comment entered. Ordering Provider: KAREN DOVE Report Released Date/Time: Aug 20, 2022 09:56 AM Reporting Lab: [facility] [address] Performing Lab: [facility] [address] [place] [facility] VIT D 25-OH,TOT AL 25-HYDROXYV ITAMIN D3 [MASS/VOLUM E] IN SERUM OR PLASMA 36 12 - 50 04/01 Specimen Type: SERUM No comment entered. Ordering Provider: KAREN DOVE Report Released Date/Time: Aug 20, 2022 09:56 AM Reporting Lab: [facility] [phone] Performing Lab: [facility] [phone] [place] [facility] CBC LEUKOCYTES [#/VOLUME] IN BLOOD BY AUTOMATED COUNT 6.26 4.0 - 11.0 04/01 Specimen Type: BLOOD No comment entered. Ordering Provider: KAREN DOVE Report Released Date/Time: Aug 20, 2022 09:56 AM Reporting Lab: [facility] [phone] Performing Lab: [facility] [address] [facility] CBC ERYTHROCYTE S [#/VOLUME] IN BLOOD BY AUTOMATED COUNT 3.02 4.6 - 6.2 04/01 L Specimen Type: BLOOD No comment entered. Ordering Provider: KAREN DOVE Report Released Date/Time: Aug 20, 2022 09:56 AM Reporting Lab: [facility] [address] Performing Lab: [facility] [address] [place] [facility] CBC HEMOGLOBIN [MASS/VOLUM E] IN BLOOD 8.9 13.5 - 17.9 04/01 L Specimen Type: BLOOD No comment entered. Ordering Provider: KAREN DOVE Report Released Date/Time: Aug 20, 2022 09:56 AM Reporting Lab: [facility] [address] Performing Lab: [facility] [phone] [place] [facility] CBC HEMATOCRIT [VOLUME FRACTION] OF BLOOD BY AUTOMATED COUNT 28.2 41 - 54 04/01 L Specimen Type: BLOOD No comment entered. Ordering Provider: KAREN DOVE Report Released Date/Time: Aug 20, 2022 09:56 AM Reporting Lab: [facility] [address] Performing Lab: [facility] [phone] [place] [facility] CBC MCV [ENTITIC VOLUME] BY AUTOMATED COUNT 93.4 80 - 100 04/01 Specimen Type: BLOOD No comment entered. Ordering Provider: KAREN DOVE Report Released Date/Time: Aug 20, 2022 09:56 AM Reporting Lab: [facility] [address] Performing Lab: [facility] [address] [place] [facility] CBC MCH [ENTITIC MASS] BY AUTOMATED COUNT 29.5 27 - 33 04/01 Specimen Type: BLOOD No comment entered. Ordering Provider: KAREN DOVE Report Released Date/Time: Aug 20, 2022 09:56 AM Reporting Lab: [facility] [address] Performing Lab: [facility] [phone] [place] [facility] CBC MCHC [MASS/VOLUM E] BY AUTOMATED COUNT 31.6 32.0 - 37.5 04/01 L Specimen Type: BLOOD No comment entered. Ordering Provider: KAREN DOVE Report Released Date/Time: Aug 20, 2022 09:56 AM Reporting Lab: [facility] [address] Performing Lab: [facility] [phone] [place] [facility] CBC PLATELETS [#/VOLUME] IN BLOOD BY AUTOMATED COUNT 189 150 - 400 04/01 Specimen Type: BLOOD No comment entered. Ordering Provider: KAREN DOVE Report Released Date/Time: Aug 20, 2022 09:56 AM Reporting Lab: [facility] [address] Performing Lab: [facility] [phone] [place] [facility] CBC PLATELET MEAN VOLUME [ENTITIC VOLUME] IN BLOOD BY AUTOMATED COUNT 10.3 7.4 - 10.4 04/01 Specimen Type: BLOOD No comment entered. Ordering Provider: KAREN DOVE Report Released Date/Time: Aug 20, 2022 09:56 AM Reporting Lab: [facility] [address] Performing Lab: [facility] [phone] [place] [facility] CBC ERYTHROCYTE DISTRIBUTIO N WIDTH [RATIO] BY AUTOMATED COUNT 15.9 11.5 - 14.5 04/01 H Specimen Type: BLOOD No comment entered. Ordering Provider: KAREN DOVE Report Released Date/Time: Aug 20, 2022 09:56 AM Reporting Lab: [facility] [address] Performing Lab: [facility] [address] [place] [facility] COMPREHEN SIVE METABOLIC PANEL+MG CREATININE [MASS/VOLUM E] IN SERUM OR PLASMA 1.4 0.7 - 1.2 04/01 H Specimen Type: PLASMA No comment entered. Ordering Provider: KAREN DOVE Report Released Date/Time: Aug 20, 2022 09:56 AM Reporting Lab: [facility] [address] Performing Lab: [facility] [address] [place] [facility] COMPREHEN SIVE METABOLIC PANEL+MG UREA NITROGEN [MASS/VOLUM E] IN SERUM OR PLASMA 16 8 - 26 04/01 Specimen Type: PLASMA No comment entered. Ordering Provider: KAREN DOVE Report Released Date/Time: Aug 20, 2022 09:56 AM Reporting Lab: [facility] [address] Performing Lab: [facility] [address] [place] [facility] COMPREHEN SIVE METABOLIC PANEL+MG GLUCOSE [MASS/VOLUM E] IN SERUM OR PLASMA 103 70 - 100 04/01 H Specimen Type: PLASMA No comment entered. Ordering Provider: KAREN DOVE Report Released Date/Time: Aug 20, 2022 09:56 AM Reporting Lab: [facility] [address] Performing Lab: [facility] [address] [place] [facility] COMPREHEN SIVE METABOLIC PANEL+MG SODIUM [MOLES/VOLU ME] IN SERUM OR PLASMA 138 136 - 145 04/01 Specimen Type: PLASMA No comment entered. Ordering Provider: KAREN DOVE Report Released Date/Time: Aug 20, 2022 09:56 AM Reporting Lab: [facility] [phone] Performing Lab: [facility] [address] [place] [facility] COMPREHEN SIVE METABOLIC PANEL+MG POTASSIUM [MOLES/VOLU ME] IN SERUM OR PLASMA 3.4 3.5 - 5.1 04/01 L Specimen Type: PLASMA No comment entered. Ordering Provider: KAREN DOVE Report Released Date/Time: Aug 20, 2022 09:56 AM Reporting Lab: [facility] [address] Performing Lab: [facility] [phone] [place] [facility] COMPREHEN SIVE METABOLIC PANEL+MG CHLORIDE [MOLES/VOLU ME] IN SERUM OR PLASMA 105 98 - 107 04/01 Specimen Type: PLASMA No comment entered. Ordering Provider: KAREN DOVE Report Released Date/Time: Aug 20, 2022 09:56 AM Reporting Lab: [facility] [address] Performing Lab: [facility] [phone] [place] [facility] COMPREHEN SIVE METABOLIC PANEL+MG CARBON DIOXIDE, TOTAL [MOLES/VOLU ME] IN SERUM OR PLASMA 26 22 - 29 04/01 Specimen Type: PLASMA No comment entered. Ordering Provider: KAREN DOVE Report Released Date/Time: Aug 20, 2022 09:56 AM Reporting Lab: [facility] [address] Performing Lab: [facility] [address] [place] [facility] COMPREHEN SIVE METABOLIC PANEL+MG CALCIUM [MASS/VOLUM E] IN SERUM OR PLASMA 8.5 8.4 - 10.2 04/01 Specimen Type: PLASMA No comment entered. Ordering Provider: KAREN DOVE Report Released Date/Time: Aug 20, 2022 09:56 AM Reporting Lab: [facility] [address] Performing Lab: [facility] [address] [place] [facility] COMPREHEN SIVE METABOLIC PANEL+MG PROTEIN [MASS/VOLUM E] IN SERUM OR PLASMA 6.3 6.0 - 8.3 04/01 Specimen Type: PLASMA No comment entered. Ordering Provider: KAREN DOVE Report Released Date/Time: Aug 20, 2022 09:56 AM Reporting Lab: [facility] [address] Performing Lab: [facility] [address] [place] [facility] COMPREHEN SIVE METABOLIC PANEL+MG ALBUMIN [MASS/VOLUM E] IN SERUM OR PLASMA 3.3 3.5 - 5.2 04/01 L Specimen Type: PLASMA No comment entered. Ordering Provider: KAREN DOVE Report Released Date/Time: Aug 20, 2022 09:56 AM Reporting Lab: [facility] [address] Performing Lab: [facility] [address] [place] [facility] COMPREHEN SIVE METABOLIC PANEL+MG BILIRUBIN.T OTAL [MASS/VOLUM E] IN SERUM OR PLASMA 0.3 0.2 - 1.2 04/01 Specimen Type: PLASMA No comment entered. Ordering Provider: KAREN DOVE Report Released Date/Time: Aug 20, 2022 09:56 AM Reporting Lab: [facility] [address] Performing Lab: [facility] [address] [place] [facility] COMPREHEN SIVE METABOLIC PANEL+MG MAGNESIUM [MASS/VOLUM E] IN SERUM OR PLASMA 1.8 1.6 - 2.6 04/01 Specimen Type: PLASMA No comment entered. Ordering Provider: KAREN DOVE Report Released Date/Time: Aug 20, 2022 09:56 AM Reporting Lab: [facility] [id number] Performing Lab: [facility] [id number] [place] [facility] COMPREHEN SIVE METABOLIC PANEL+MG ANION GAP IN SERUM OR PLASMA 7 5 - 15 04/01 Specimen Type: PLASMA No comment entered. Ordering Provider: KAREN DOVE Report Released Date/Time: Aug 20, 2022 09:56 AM Reporting Lab: [facility] [id number] Performing Lab: [facility] [address] [place] [facility] COMPREHEN SIVE METABOLIC PANEL+MG ALKALINE PHOSPHATASE [ENZYMATIC ACTIVITY/VO LUME] IN SERUM OR PLASMA 93 40 - 150 04/01 Specimen Type: PLASMA No comment entered. Ordering Provider: KAREN DOVE Report Released Date/Time: Aug 20, 2022 09:56 AM Reporting Lab: [facility] [address] Performing Lab: [facility] [address] [place] [facility] COMPREHEN SIVE METABOLIC PANEL+MG ALANINE AMINOTRANSF ERASE [ENZYMATIC ACTIVITY/VO LUME] IN SERUM OR PLASMA 10 <55 - 55 04/01 Specimen Type: PLASMA No comment entered. Ordering Provider: KAREN DOVE Report Released Date/Time: Aug 20, 2022 09:56 AM Reporting Lab: [facility] [address] Performing Lab: [facility] [address] [place] [facility] COMPREHEN SIVE METABOLIC PANEL+MG ASPARTATE AMINOTRANSF ERASE [ENZYMATIC ACTIVITY/VO LUME] IN SERUM OR PLASMA 24 <34 - 34 04/01 Specimen Type: PLASMA No comment entered. Ordering Provider: KAREN DOVE Report Released Date/Time: Aug 20, 2022 09:56 AM Reporting Lab: [facility] [address] Performing Lab: [facility] [address] [place] [facility] COMPREHEN SIVE METABOLIC PANEL+MG GLOMERULAR FILTRATION RATE/1.73 SQ M.PREDICTED [VOLUME RATE/AREA] IN SERUM, PLASMA OR BLOOD BY CREATININE- BASED FORMULA (CKD-EPI 2020) 54 60 04/01 L Specimen Type: PLASMA No comment entered. Ordering Provider: KAREN DOVE Report Released Date/Time: Aug 20, 2022 09:56 AM Reporting Lab: [facility] [address] Performing Lab: [facility] [address] [place] [facility] RETICS RETICULOCYT ES/100 ERYTHROCYTE S IN BLOOD BY AUTOMATED COUNT 0.0416 0.0300 - 0.1000 04/01 Specimen Type: BLOOD Comment: Specimen received is PLASMA. Ordering Provider: KAREN DOVE Report Released Date/Time: Apr 01, 2023 10:44 AM Reporting Lab: [facility] [address] Performing Lab: [facility] [address] [place] [facility] RETICS RETICULOCYT ES/100 ERYTHROCYTE S IN BLOOD BY AUTOMATED COUNT 1.39 0.6 - 2.0 04/01 Specimen Type: BLOOD Comment: Specimen received is PLASMA. Ordering Provider: KAREN DOVE Report Released Date/Time: Apr 01, 2023 10:44 AM Reporting Lab: [facility] [address] Performing Lab: [facility] [address] [place] [facility] IMMATURE RETICULOCYT ES/RETICULO CYTES.TOTAL IN BLOOD 16.6 1.0 - 14.0 04/01 H Specimen Type: BLOOD Comment: Specimen received is PLASMA. Ordering Provider: KAREN DOVE Report Released Date/Time: Apr 01, 2023 10:44 AM Reporting Lab: [facility] [address] Performing Lab: [facility] [address] [place] [facility] RETICULOCYT E PRODUCTION INDEX 25.4 28.2 - 36.6 04/01 L Specimen Type: BLOOD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
--- OUTSIDE RECORDS SUMMARY | 2023-08-05 13:54 | XMS_ITS | Encounter Summary ---
Author Name [facility] Organization Department of [facility] Address [address] [place] [address] Support Name Relationship Address Phone ANTOINE SKELTON Next of Kin , RADHA [address] [address] CHAVEZ Emergency Contact [place] [phone] ANTOINE SKELTON Next of Kin , RADHA [address] CARIE CHAVEZ Emergency Contact [place] [phone] Insurance Providers: All historical and current Section [...] AID (WNR) Aug 08, 2013 MEDICAI D [id number] DERICK SKELTON PATIENT MEDICARE (WNR) MEDICARE (M) PART A Sep 07, 2016 PART A [id number] DERICK SKELTON PATIENT Selected Encounter This section includes the information on record at [place] for the Encounter. Date/Time Encounter Type Encounter Description Reason Provider Source Aug 20, 2022 09:15 AM OFFICE O/P EST HI 40-54 MIN PRIMARY CARE/MEDICINE ICD-10-CM Z71.6 Tobacco abuse counseling GLEN DOVE Gillian Encounter Template Text not used by [place] Assessments - Encounter Diagnoses This section includes the primary and secondary diagnoses documented for the Encounter. Date/Time Primary/Secondary Diagnosis Diagnosis Name Provider Source Aug 20, 2022 10:09 AM PRIMARY Tobacco abuse counseling GLEN DOVE [facility] Aug 20, 2022 10:09 AM SECONDARY Chronic obstructive pulmonary disease, unspecified GLEN DOVE [facility] Plan of Treatment: Future Appointments (+ 6 months) and Future Tests (+/- 45 days) The Plan of Treatment section includes future care activities for the [facility] [place] [facility] This section includes future appointments and future orders which are active, pending or scheduled. Future Appointments This section includes appointments that were scheduled to occur 6 months from the date of the Encounter, up to a maximum of 20 appointments. The data comes from all [facility] facilities. Appointment Date/Time Appointment Type Appointme nt Facility Name Aug 30, 2022 10:00 AM AMBULATORY - REHAB MEDICIN E [facility] Oct 16, 2022 01:45 PM AMBULATORY - NONE [facility] Oct 21, 2022 09:00 AM [facility] Oct 23, 2022 07:00 AM AMBULATORY - NONE [facility] Oct 28, 2022 05:00 PM AMBULATORY - REHAB MEDICIN [facility] Nov 01, 2022 09:00 AM [facility] Nov 13, 2022 09:00 AM AMBULATORY - PSYCHIATRY [facility] Nov 20, 2022 08:00 AM AMBULATORY - PSYCHIATRY [facility] Dec 05, 2022 10:15 AM AMBULATORY - SURGERY [facility] Dec 30, 2022 10:15 AM AMBULATORY - SURGERY [facility] Lab Results: +/- 30 days of the encounter This section includes the Chemistry and Hematology Lab Results on record with [place] for the patient. Radiology Reports and Pathology Reports are provided separately, in subsequent sections. Lab Results This section contains the Chemistry/Hematology Results that were resulted 30 days before or 30 daysafter the date of the Encounter. Date/Time Source Result Type Result - Unit Interpretation Reference Range Comment Aug 20, 2022 08:12 AM [facility] PTH-N-TACT Specimen Type: PLASMA No comment entered. Ordering Provider: GLEN DOVE Report Released Date/Time: Aug 19, 2022 04:38 PM Reporting Lab: [facility] [id number] Performing Lab: [facility] [address] PTH-N-TACT 62.0 8.7-77.1 Aug 20, 2022 08:12 AM [facility] B 12 Specimen Type: SERUM No comment entered. Ordering Provider: GLEN DOVE Report Released Date/Time: Aug 19, 2022 04:38 PM Reporting Lab: [facility] [address] Performing Lab: [place] [id number] B 12 [phone] Aug 20, 2022 08:12 AM [facility] FOLATE Specimen Type: SERUM No comment entered. Ordering Provider: GLEN DOVE Report Released Date/Time: Aug 19, 2022 04:38 PM Reporting Lab: [facility] [address] Performing Lab: [facility] [phone] FOLATE 16.5 See_Commen t Aug 20, 2022 08:12 AM [facility] VIT D 25-OH,TOTAL Specimen Type: SERUM No comment entered. Ordering Provider: GLEN DOVE Report Released Date/Time: Aug 19, 2022 04:38 PM Reporting Lab: [facility] [address] Performing Lab: [facility] [address] VIT D 25-OH,TOTAL 12 12-50 Aug 20, 2022 08:12 AM [facility] TSH W/REFLEX TO FREE T4 Specimen Type: PLASMA No comment entered. Ordering Provider: GLEN DOVE Report Released Date/Time: Aug 19, 2022 04:38 PM Reporting Lab: [facility] [address] Performing Lab: [facility] [address] TSH 0.75 0.35-4.94 Aug 20, 2022 08:12 AM [facility] RETICS Specimen Type: BLOOD No comment entered. Ordering Provider: GLEN DOVE Report Released Date/Time: Aug 19, 2022 04:38 PM Reporting Lab: [facility] [address] Performing Lab: [facility] [address] ABS RETIC 0.0382 0.0300-0.1 000 .RETICULOCYTE 1.19 0.6-2.0 IMMATURE RETIC 11.5 1.0-14.0 .RETICULOCYTE HE 33.3 28.2-36.6 Aug 20, 2022 08:12 AM [facility] PHOSPHORUS Specimen Type: PLASMA No comment entered. Ordering Provider: GLEN DOVE Report Released Date/Time: Aug 19, 2022 04:38 PM Reporting Lab: [facility] [address] Performing Lab: [facility] [address] PHOSPHORUS 3.5 2.3-4.7 Aug 20, 2022 08:12 AM [facility] PSA Specimen Type: SERUM No comment entered. Ordering Provider: GLEN DOVE Report Released Date/Time: Aug 19, 2022 04:41 PM Reporting Lab: [facility] [address] Performing Lab: [facility] [address] PSA 0.01 See_Commen t Aug 20, 2022 08:12 AM [facility] COMPREHENSIVE METABOLIC PANEL+MG Specimen Type: PLASMA No comment entered. Ordering Provider: GLEN DOVE Report Released Date/Time: Aug 19, 2022 04:38 PM Reporting Lab: [facility] [phone] Performing Lab: [facility] [address] CREATININE 1.2 0.7-1.2 UREA NITROGEN 9 8-26 [...] See_Commen t Aug 20, 2022 08:12 AM [facility] CBC Specimen Type: BLOOD No comment entered. Ordering Provider: GLEN DOVE Report Released Date/Time: Aug 19, 2022 04:38 PM Reporting Lab: [facility] [address] Performing Lab: [facility] [address] WBC 4.78 4.0-11.0 RBC 3.21 L 4.6-6.2 HGB 10.6 L 13.5-17.9 HCT 32.3 L 41-54 MCV 100.6 H 80-100 MCH 33.0 27-33 MCHC 32.8 32.0-37.5 PLT 172 150-400 MPV 10.4 7.4-10.4 RDW 14.3 11.5-14.5 .RETICULOCYTE HE 33.3 28.2-36.6 Aug 20, 2022 08:12 AM [facility] METHYLMALONIC ACID Specimen Type: SERUM No comment entered. Ordering Provider: GLEN DOVE Report Released Date/Time: Aug 20, 2022 09:30 AM Reporting Lab: [facility] [address] Performing Lab: [facility] [address] METHYLMALONIC ACID 774 H 0-400 Aug 20, 2022 08:12 AM [facility] FERRITIN Specimen Type: SERUM No comment entered. Ordering Provider: GLEN DOVE Report Released Date/Time: Aug 20, 2022 03:07 PM Reporting Lab: [facility] [address] Performing Lab: [facility] [address] FERRITIN 29.4 21.8-274.7 Vital Signs: All taken on the encounter date This section contains inpatient and outpatient Vital Signs collected on the date of the Encounter. Date/Time Temperature Pulse Blood Pressure Respiratory Rate SP02 Pain Height Weight Body Mass Index Source Aug 20, 2022 09:00 AM 97.7 F 51 /min 138/66 mm[Hg] 18 /min 100 % 4 [place] [facility] Social History: Smoking Status (Most current) and Tobacco Use (All prior to encounter date) This section includes the most current, and the historical, smoking and tobacco- related health factors from the [facility] where the Encounter took place. Current Smoking Status This section includes the most current smoking, or tobacco-related health factor, from the [place] facility where the Encounter took place. Date/Time Current Smoking Status Ivone adkins Aug 20, 2022 09:15 AM VA-TOBACCO USER EVERY DAY [facility] Tobacco Use History This section includes a history of the smoking, or tobacco-related health factors, that were collected on or before the date of the Encounter. The data comes from the [place] facility where the Encounter took place. Date/Time Smoking Status/Tobacco Use Comment F acility Aug 20, 2022 09:15 AM VA-TOBACCO USE ADVICE [facility] Aug 20, 2022 09:15 AM VA-TOBACCO USE TYPING CHECKER NO [facility] Aug 20, 2022 09:15 AM VA-TOBACCO USE MED NO [facility] Aug 20, 2022 09:15 AM VA-TOBACCO USE WI 30 MIN OF WAKE UP [facility] Aug 20, 2022 09:15 AM VA-TOBACCO USER EVERY DAY [facility] Sep 12, 2021 09:15 AM VA-TOBACCO USE 30 YEARS OR MORE [facility] Sep 12, 2021 09:15 AM VA-TOBACCO USE ADVICE [facility] Sep 12, 2021 09:15 AM VA-TOBACCO USE TYPING CHECKER NO [facility] Sep 12, 2021 09:15 AM VA-TOBACCO USE MED NO [facility] Sep 12, 2021 09:15 AM VA-TOBACCO USE WI 30 MIN OF WAKE UP [facility] Sep 12, 2021 09:15 AM VA-TOBACCO USER EVERY DAY [facility] Sep 01, 2020 01:30 PM VA-TOBACCO DOESNT USE WI 30 MIN WAKEUP [facility] Sep 01, 2020 01:30 PM VA-TOBACCO USE 30 YEARS OR MORE [facility] Sep 01, 2020 01:30 PM VA-TOBACCO USE ADVICE [facility] Sep 01, 2020 01:30 PM VA-TOBACCO USE TYPING CHECKER NO [facility] Sep 01, 2020 01:30 PM VA-TOBACCO USE MED NO [facility] Sep 01, 2020 01:30 PM VA-TOBACCO USER EVERY DAY [facility] Sep 27, 2019 09:35 AM VA-TOBACCO USE 30 YEARS OR MORE [facility] Sep 27, 2019 09:35 AM VA-TOBACCO USE ADVICE [facility] Sep 27, 2019 09:35 AM VA-TOBACCO USE TYPING CHECKER NO [facility] Sep 27, 2019 09:35 AM VA-TOBACCO USE MED NO [facility] Sep 27, 2019 09:35 AM VA-TOBACCO USE WI 30 MIN OF WAKE UP [facility] Sep 27, 2019 09:35 AM VA-TOBACCO USER EVERY DAY [facility] Mar 04, 2018 01:45 PM VA-TOBACCO USE 30 YEARS OR MORE [facility] Mar 04, 2018 01:45 PM VA-TOBACCO USE ADVICE [facility] Mar 04, 2018 01:45 PM VA-TOBACCO USE TYPING CHECKER NO [facility] Mar 04, 2018 01:45 PM VA-TOBACCO USE MED NO [facility] Mar 04, 2018 01:45 PM VA-TOBACCO USE WI 30 MIN OF WAKE UP [facility] Mar 04, 2018 01:45 PM VA-TOBACCO USER EVERY DAY [facility] Apr 22, 2017 10:01 AM CURRENT TOBACCO USER [facility] Apr 16, 2016 09:52 AM CURRENT TOBACCO USER [facility] July 26, 2014 09:08 AM CURRENT TOBACCO USER [facility] Dec 31, 2013 10:06 AM CURRENT TOBACCO USER [facility] Sep 05, 2012 09:27 AM CURRENT TOBACCO USER [facility] Nov 25, 2011 09:12 AM CURRENT TOBACCO USER [facility] Feb 08, 2011 10:04 AM CURRENT TOBACCO USER [facility] May 01, 2010 10:24 AM CURRENT TOBACCO USER [facility] Jul 03, 2009 08:42 AM CURRENT TOBACCO USER [facility] Radiology Reports: +/- 30 days of [...] the Encounter. The data comes from all [facility] facilities. Date/Time Radiology Report Provider Source Aug 20, 2022 10:08 AM LDCT LUNG CANCER SCREENING: FRANCES SKELTON [id number] -[id number] M Exm Date: AUG 20, 2022@10:08 Req Phys: GLEN DOVE Pat Loc: [facility] PACT [facility] 4D (Req'g Loc) Img Loc: CT IMAGING Service: Unknown (Case [id number] COMPLETE) LDCT LUNG CANCER SCREENING (CT Detailed) CPT:21898 Reason for Study: LDCT f/u of a LUNGRADS 2B pulm nodule (FOLLOW UP) Clinical History: [place] IS NOT under investigation for COVID-19 or [...] 20, 2022 Date Verified: AUG 20, 2022 Senior It Architect E-Sig:/ES/JUAN MANUEL SHIELDS MD Report: EXAM: LDCT [...] Interpreting Staff: JUAN MANUEL SHIELDS MD, RADIOLOGIST (Senior It Architect) /JUAN MANUEL [place] [facility] Encounter Notes: All associated encounter notes This section contains the clinical notes associated to the Encounter. Date/Time Encounter Note(s) Provider Source Aug 20, 2022 09:15 AM INTERNAL MEDICINE NOTE: LOCAL TITLE: MEDICINE CLINIC NOTE STANDARD TITLE: INTERNAL MEDICINE NOTE DATE OF NOTE: AUG 20, 2022@09:15 ENTRY DATE: AUG 20, 2022@10:05:22 AUTHOR: GLEN DOVE EXP COSIGNER: URGENCY: STATUS: COMPLETED MEDICINE CLINIC NOTE Has ADDENDA MEDICINE CLINIC NOTE ASSESSMENT AND PLAN #PCL avulsion Fx, left, 06/2022: non-operative management, [facility], following w/ outside [facility]. Will refer to PT for Rollator. #High risk for low bone mineral density (tobacco, age, alcohol). Given falls, will pursue DEXA. #Hypovitaminosis D: start vitamin D #Mildly elevated AST: suspect related to EtOH use, suggested cessation #Falls, impaired mobility Likely driven by of his severe lower extremity neuropathy. He has been provided assistive devices in the past as well as OT home evaluation. Generally the falls occur when he is not using these. Prior electric mobility consult declined. Will send to PT for rollator. #Macrocytic anemia Suspect this is related to alcohol use. TSH, B12/folate within normal limits w/ homocysteine and MMA previously. Normal copper 2021. Normal SPEP, kappa, lambda. Smear nonspecific. 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 -repeat labs today #Lung nodule: following w/ pulm, s/p negative Bx 04/2021, repeat CT due today (scheduled) CHRONIC #EMG-proven bilateral lower extremity neuropathy W/u includes normal SPEP, B12, A1c. Possibly 2/2 EtoH; continues to drink 4 beers per day. Minimal improvement with gabapentin and pregabalin; previously declined trying these again. -on duloxetine #Chronic low back pain Some spondylosis on imaging, but per pain clinic eval 06/2021, degree of pain more than they would expect on imaging (MRI 02/2021). Suspect nociplastic component. Previously offered PT, acupuncture, etc by pain clinic. NSAID not ideal given gastritis, EtOH use, though after discussing risks/benefits, have Rx'ed celecoxib w/ continued use of scheduled PPI. Also has lidocaine patch. #History of prostate cancer status post radical retroprostatectomy 2012 complicated by incontinence; repeat PSA OK 08/2022. #Calf pain w/ ambulation: Suspect PVD, previously ordered ABIs but not pursued by patient #Alcohol use disorder: Advised cessation previously. Remains on folate, pyridoxine and thiamine. #Gastritis (suspected NSAID-induced 2013), history of H. 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 He has received Botox injections at the GE junction. Status post speech pathology evaluation in September 2019 only notable for mild oropharyngeal dysphagia. #HSV: Acyclovir #Insomnia and PTSD: Olanzapine 2.5 mg nightly, trazodone 150 mg nightly, follows w/ MH #Anxiety: atenolol 25 mg daily RTC: 6 mo Glen Dove MD General Internal Medicine [facility], [place], operated by [facility] A total of 50 minutes was spent on this visit reviewing previous notes, counseling the patient, ordering or interpreting tests, adjusting meds, and documenting the findings in the note. CC: annual HPI The patient says he has been doing fairly well. Since his last visit, he had a fall and was hospitalized at [facility] in June. He suffered a minimally displaced PCL avulsion fracture and was placed on oxycodone and referred to PT and Ortho. No surgery was recommended. He says the fall was mechanical in nature when he was going over the curb of the street. His left knee pain is improving and he is starting to put weight on it. He is really interested in having an electric scooter, but electric mobility declined his request. At this point, he is interested in a Rollator instead that he can get around a bit more easily. He is still having falls, probably balance once weekly. He says that his breathing is better than it has been. He has been reducing the amount of tobacco he uses. He only uses albuterol few times a day; he is not using Symbicort. He continues to drink, noting he had about 2 beers last night. 10 point ROS completed and negative unless noted in HPI. MEDICATION RECONCILATION Education Evaluations *Was medication education provided for NEW medications or CHANGES to medications? (including medication name, dose, route, reason for use, and potential side effects). Yes. Education on what medications? New medication(s) Education provided to the following: Patient Type of education provided: Verbal Written materials Assessment of patient understanding of education content. Verbalized understanding TERATOGENIC MED & CONTRACEPTION REVIEW (Optional)... MEDICATION RECONCILIATION List Given: An updated medication list was provided to the patient/caregiver. Review Done: The medication list shown below was verified for accuracy and it includes all pending medications/active medications/all medications or discontinued within the last 90 days/all remote medications and non-VA medications. If a given category (i.e. remote meds) is not shown, that means that a patient doesn't have a medication(s) in that category. Allergies listed below were also reviewed/updated for accuracy. Allergies/ADR from [facility] may not display in CPRS. Use JLV MRT5 - Allergies/ADRs FACILITY ALLERGY/ADR -------- No Remote Allergy/ADR Data available for this patient [facility] BEE VENOM [facility] BUTORPHANOL Active and Recently Outpatient Medications (including Supplies): Issue Date Status Last Fill Active Outpatient Medications Refills Expiration ========= 1) ALBUTEROL 90MCG (CFC-F) 200D ORAL INHL ACTIVE Issu:01-29-22 Qty: 2 for 50 days Sig: INHALE 2 Refills: 3 Last:01-30-22 PUFFS BY INHALATION FOUR TIMES A DAY Expr:01-30-23 NEEDED FOR IMMEDIATE RELIEF OF SHORTNESS OF BREATH *SHAKE WELL* 2) ATENOLOL 25MG TAB Qty: 90 for 90 days ACTIVE Issu:04-02-22 Sig: TAKE ONE TABLET BY MOUTH EVERY Refills: 1 Last:06-12-22 DAY FOR ANXIETY FOR ANXIETY Expr:04-03-23 3) BRIEF,TRANQUILITY LESLIE OVERNITE SM#[id number] ACTIVE Issu:11-13-21 Qty: 80 for 30 days Sig: USE BRIEF Refills: 9 Last:07-15-22 DIRECTED Expr:11-14-22 4) CELECOXIB 100MG CAP Qty: 180 for 90 ACTIVE Issu:07-09-22 days Sig: TAKE ONE CAPSULE BY MOUTH Refills: 0 Last:07-11-22 TWICE A DAY FOR PAIN Expr:10-07-22 5) DULOXETINE HCL 60MG EC CAP Qty: 30 for ACTIVE (S) Issu:08-13-22 30 days Sig: TAKE ONE CAPSULE BY Refills: 0 Last:09-03-22 MOUTH EVERY DAY FOR ANXIETY FOR Expr:08-14-23 ANXIETY, PAIN, AND DEPRESSION 6) FOLIC ACID 1MG TAB Qty: 90 for 90 days ACTIVE Issu:03-26-22 Sig: TAKE ONE TABLET BY MOUTH EVERY Refills: 2 Last:07-09-22 DAY Expr:03-27-23 7) LIDOCAINE 5% PATCH Qty: 30 for 30 days ACTIVE Issu:04-02-22 Sig: APPLY 1 PATCH TOPICALLY EVERY DAY Refills: 11 Last:04-03-22 FOR UP TO 12 HOURS FOR PAIN Expr:04-03-23 8) NALOXONE HCL 4MG/SPRAY SOLN NASAL SPRAY ACTIVE Issu:06-27-22 Qty: 2 for 30 days Sig: SPRAY 1 DOSE Refills: 1 Last:07-02-22 IN ONE NOSTRIL DIRECTED FOR Expr:06-28-23 UNRESPONSIVENESS THEN CALL 911 - IF NO CHANGE IN 2-3 MINUTES, GIVE SECOND DOSE IN OPPOSITE NOSTRIL 9) OLANZAPINE 2.5MG TAB Qty: 30 for 30 ACTIVE Issu:05-02-22 days Sig: TAKE ONE TABLET BY MOUTH AT Refills: 0 Last:07-09-22 BEDTIME FOR IRRITABILITY AND SLEEP Expr:05-03-23 10) OMEPRAZOLE 20MG EC CAP Qty: 360 for 90 ACTIVE Issu:09-24-21 days Sig: TAKE TWO CAPSULES BY MOUTH Refills: 2 Last:05-01-22 TWICE A DAY ON AN EMPTY STOMACH, AT Expr:09-25-22 LEAST 30 MINUTES PRIOR TO A MEAL TO DECREASE STOMACH ACID 11) PYRIDOXINE HCL 50MG TAB Qty: 100 for 90 ACTIVE Issu:04-02-22 days Sig: TAKE 1/2 TABLET BY MOUTH Refills: 3 Last:04-03-22 EVERY DAY Expr:04-03-23 12) SILDENAFIL CITRATE 100MG TAB Qty: 6 for ACTIVE Issu:04-02-22 30 days Sig: TAKE ONE TABLET BY MOUTH Refills: 3 Last:05-27-22 EVERY DAY NEEDED 1 HOUR BEFORE Expr:04-03-23 ANTICIPATED SEXUAL ACTIVITY. FOR ERECTIONS. 13) THIAMINE 100MG TAB Qty: 100 for 90 days ACTIVE Issu:04-02-22 Sig: TAKE ONE TABLET BY MOUTH EVERY Refills: 2 Last:07-02-22 DAY Expr:04-03-23 14) TRAZODONE HCL 50MG TAB Qty: 270 for 90 ACTIVE Issu:09-26-21 days Sig: TAKE THREE TABLETS BY MOUTH Refills: 1 Last:07-03-22 AT BEDTIME Expr:09-27-22 Issue Date Status Last Fill Pending Outpatient Medications Refills Expiration ========= 1) CARBOXYMETHYLCELLULOSE NA 0.5% OPH SOLN PENDING Qty: 15 Sig: INSTILL 1 DROP IN BOTH Refills: 0 EYES FOUR TIMES A DAY NEEDED FOR DRY EYES 2) CHOLECALCIF 25MCG (D3-1,000UNIT) TAB PENDING Qty: 100 Sig: TAKE ONE TABLET BY Refills: 0 MOUTH EVERY DAY 3) OLODATEROL/TIOTROP 2.5MCG/ACTUAT 60D INH PENDING Qty: 1 Sig: INHALE 2 PUFFS BY Refills: 0 INHALATION EVERY DAY Issue Date Status Last Fill Inactive Outpatient Medications Refills Expiration ========= 1) ATENOLOL 50MG TAB Qty: 90 for 90 days DISCONTINUED Issu:11-28-21 Sig: TAKE ONE TABLET BY MOUTH EVERY (EDIT) Last:03-18-22 DAY FOR ANXIETY Refills: 0 Expr:11-29-22 2) ATENOLOL 50MG TAB Qty: 90 for 90 days DISCONTINUED Issu:05-02-21 Sig: TAKE ONE TABLET BY MOUTH EVERY Refills: 0 Last:09-03-21 DAY FOR ANXIETY Expr:05-03-22 3) BRIEF,PROTECTIVE SUPER ABS Y/SM ATTENDS DISCONTINUED Issu:11-13-21 Qty: 80 for 80 days Sig: USE BRIEF Refills: 3 Last:11-15-21 EVERY DAY Expr:11-14-22 4) CARBOXYMETHYLCELLULOSE NA 0.5% OPH SOLN Issu:05-12-21 Qty: 15 for 30 days Sig: INSTILL 1 Refills: 2 Last:12-01-21 DROP IN BOTH EYES FOUR TIMES A DAY Expr:05-13-22 NEEDED FOR DRY EYES 5) CELECOXIB 100MG CAP Qty: 180 for 90 DISCONTINUED Issu:04-02-22 days Sig: TAKE ONE CAPSULE BY MOUTH Refills: 0 Last:04-03-22 TWICE A DAY FOR PAIN Expr:07-01-22 6) DULOXETINE HCL 30MG EC CAP Qty: 30 for DISCONTINUED Issu:09-26-21 30 days Sig: TAKE ONE CAPSULE BY Refills: 0 Last:11-27-21 MOUTH EVERY DAY FOR ANXIETY, PAIN, AND Expr:09-27-22 DEPRESSION 7) DULOXETINE HCL 60MG EC CAP Qty: 30 for DISCONTINUED Issu:06-03-22 30 days Sig: TAKE ONE CAPSULE BY Refills: 0 Last:07-09-22 MOUTH EVERY DAY FOR ANXIETY FOR Expr:06-04-23 ANXIETY, PAIN, AND DEPRESSION 8) DULOXETINE HCL 60MG EC CAP Qty: 30 for DISCONTINUED Issu:03-18-22 30 days Sig: TAKE ONE CAPSULE BY Refills: 0 Last:04-22-22 MOUTH EVERY DAY FOR ANXIETY, PAIN, AND Expr:03-19-23 DEPRESSION 9) OLANZAPINE 5MG TAB Qty: 15 for 30 days DISCONTINUED Issu:09-26-21 Sig: TAKE ONE-HALF TABLET BY MOUTH AT Refills: 0 Last:12-31-21 BEDTIME FOR IRRITABILITY AND SLEEP Expr:09-27-22 10) OXYCODONE 5MG TAB Qty: 56 for 14 days DISCONTINUED Issu:07-15-22 Sig: TAKE ONE TABLET BY MOUTH EVERY 4 Refills: 0 Last:07-16-22 HOURS NEEDED FOR PAIN Expr:08-14-22 11) SILDENAFIL CITRATE 100MG TAB Qty: 18 DISCONTINUED Issu:01-02-22 for 90 days Sig: TAKE ONE TABLET BY Refills: 3 Last:01-02-22 MOUTH EVERY DAY NEEDED 1 HOUR Expr:01-03-23 BEFORE ANTICIPATED SEXUAL ACTIVITY 28 Total Medications PHYSICAL EXAM VS: Temp: 97.7 F [36.5 C] (08/20/2022 09:00) BP: 138/66 (08/20/2022 09:00) Pulse:51 (08/20/2022 09:00) Resp: 18 (08/20/2022 09:00) Pain: 4 (08/20/2022 09:00) Weight: WEIGHTS IN LAST 6 MONTHS: Unavailable (AUG 20, 2022@09:00:58) 140.4 (APR 02, 2022@11:29:44) General: Sitting in exam room, no acute distress Pulmonary: Clear to auscultation bilaterally, nonlabored breathing Cardiovascular: Regular rate and rhythm, no extra sounds Extremities: No lower extremity edema, left knee w/ brace Gait: In wheelchair LABS and STUDIES WBC: 4.78 RBC: 3.21 L HGB: 10.6 L HCT: 32.3 L MCV: 100.6 H MCH: 33.0 MCHC: 32.8 RDW: 14.3 PLT: 172 MPV: 10.4 RETICULOCYTES, ABSOLUTE: 0.0382 RETICULOCYTE: 1.19 IMMATURE RETIC FRACTION: 11.5 RETICULOCYTE HE: 33.3 GLUCOSE: 66 L UREA NITROGEN: 9 CREATININE: 1.2 SODIUM: 138 POTASSIUM: 3.6 CHLORIDE: 107 CO2: 25 CALCIUM: 8.5 PO4: 3.5 PROTEIN,TOTAL: 5.9 L ALBUMIN: 3.3 L BILIRUBIN,TOTAL: 0.3 MAGNESIUM: 1.8 TSH: 0.75 ANION GAP: 6 ALKALINE PHOSPHATASE(37C): 93 SGOT(37C): 40 H SGPT(37C): 11 CREATININE EGFR (CKD-EPI): 65 B 12: 213 FOLATE: 16.5 PROSTATE SPECIFIC ANTIGEN: 0.01 VITAMIN D,TOTAL: 12 PTH-N-tact(09/22/01): 62.0 /kelly DOVE MD STAFF PHYSICIAN Signed: 08/20/2022 10:09 08/20/2022 ADDENDUM STATUS: COMPLETED Also, transitioning Symcifort to olodaterol/triotropium /kelly DOVE MD STAFF PHYSICIAN Signed: 08/20/2022 10:10 08/22/2022 ADDENDUM STATUS: COMPLETED Please let the patient know that his B12 levels are low. I am going to send him a supplement in the main to replete these (cyanocobalamin). This may help improve his hemoglobin levels. Thanks! /kelly DOVE MD STAFF PHYSICIAN Signed: 08/22/2022 15:44 Receipt Acknowledged By: 08/22/2022 15:59 /kelly BULLOCK RN REGISTERED NURSE 08/22/2022 ADDENDUM STATUS: COMPLETED Called patient and shared this information. He is agreeable. /kelly BULLOCK RN REGISTERED NURSE Signed: 08/22/2022 15:59 08/23/2022 ADDENDUM STATUS: COMPLETED Received a letter from the patient's home care agency. They are requesting [place] home care referral for [facility] 1-2 visits every 2 weeks and 5 as needed visits for general health assessment, logging assistant with care coordination, medication management unforeseen medical needs. Also requesting that authorization include PT/OT/ENRICHMENT SPECIALIST for ADL safety once the shower is in. Millicent, can you help w/ this? Thx! /marli/ GLEN DOVE MD STAFF PHYSICIAN Signed: 08/23/2022 11:36 GLEN DOVE [facility] Aug 20, 2022 09:03 AM INTERNAL MEDICINE OUTPATIENT NOTE: LOCAL TITLE: MEDICINE CLINIC NURSING NOTE STANDARD TITLE: INTERNAL MEDICINE OUTPATIENT NOTE DATE OF NOTE: AUG 20, 2022@09:03 ENTRY DATE: AUG 20, 2022@09:04:04 AUTHOR: HARSHAD TO EXP COSIGNER: URGENCY: STATUS: COMPLETED TYPE OF VISIT: Appointment Check In Type of appointment: In-person appointment REASON FOR VISIT: Routine check up ALLERGIES: BUTORPHANOL (Jul 03, 2009) BEE VENOM (July 13, 2019) VITAL SIGNS: Blood Pressure: 138/66 (08/20/2022 09:00) Pulse: 51 (08/20/2022 09:00) Respiration: 18 (08/20/2022 09:00) Temperature: 97.7 F [36.5 C] (08/20/2022 09:00) Weight: Unavailable (08/20/2022 09:00) Height: Unavailable (08/20/2022 09:00) BMI: BMI not available without height O2 Sat: 100% (08/20/2022 09:00) Pain: 4 (08/20/2022 09:00) PAIN SCREEN: Patient is having significant pain that they would like to talk to their provider about today. Old (Chronic) (began more than 6 months ago) Patient states their average pain this past week is 4 Patient states the average number on how the chronic pain affects their enjoyment of life the past week is 4 Patient states during the past week the average number on how the pain has interfered with their general activity is 4 MEDICATION Over the Counter/Herbal Medications: The patient states that they take some outside medications and/or herbals. Suicide Screen: C-SSRS Screening [place] Suicide Severity Rating Scale (C-SSRS) screener 1. Over the past month, have you wished you were or wished you could go to sleep and not wake up? No 2. Over the past month, have you had any actual thoughts of killing yourself? No 3. Over the past month, have you been thinking about how you might do this? Response not required due to responses to other questions. 4. Over the past month, have you had these thoughts and had some intention of acting on them? Response not required due to responses to other questions. 5. Over the past month, have you started to work out or worked out the details of how to kill yourself? Response not required due to responses to other questions. 6. If yes, at any time in the past month did you intend to carry out this plan? Response not required due to responses to other questions. 7. In your lifetime, have you ever done anything, started to do anything, or prepared to do anything to end your life (for example, collected pills, obtained a gun, gave away valuables, went to the roof but didn't jump)? No 8. If YES, was this within the past 3 months? Response not required due to responses to other questions. Influenza Immunization: The patient declines to receive the recommended dose of seasonal influenza vaccine. Immunization: INFLUENZA, UNSPECIFIED FORMULATION Refusal Reason: PATIENT DECISION Patient refuses all immunization(s) in the FLU group Date Documented: 08/20/22 09:05 Alcohol Use Screen (AUDIT-C): Alcohol Screen: SCREEN FOR ALCOHOL (AUDIT-C) An alcohol screening test (AUDIT-C) was negative (score=4). 1. How often did you have a drink containing alcohol in the past year? Four or more times a week 2. How many drinks containing alcohol did you have on a typical day when you were drinking in the past year? One or two drinks 3. How often did you have six or more drinks on one occasion in the past year? Never Tobacco Use Screening: The patient uses tobacco every day. The patient uses tobacco within 30 minutes of waking up. The patient has been smoking or using tobacco for thirty years or more. Patient was advised to quit smoking and/or using tobacco. Discussion with patient included: - Quitting smoking or tobacco use is one of the most important things you can do to protect and improve your health and [place] has the resources to support you. - Set a quit date when you are ready to quit. - Get support from your family and friends. - Review any past quit attempts- What helped? What didn't? - On the day you plan to quit, get rid of all cigarettes and tobacco products from your home, car or work. - Using a combination of behavioral counseling or other support strategies and FDA-approved cessation medications is the most effective way to ensure success in quitting. Patient was offered Behavioral Counseling and other support strategies to assist with quitting. Discussion with patient included: - Behavioral counseling or other support strategies greatly increases your chances of successfully quitting smoking or tobacco use by helping you develop a quit plan and providing support and other strategies to make behavioral changes to help you quit. - [place] has a number of behavioral counseling options to help you with quitting, including: * Provide information about the facility smoking or tobacco use treatment options or clinics * [place]'s national quitline, 9-171-KGEP-VET, with counseling available Friday-Friday The patient was not interested in receiving additional information about how to use the treatment options discussed. Patient was offered FDA-approved cessation medications. Discussion with patient included: - Medications for Nicotine replacement therapy such as the patch, gum or lozenge, and other medications such as varenicline or bupropion, can play an important role in the initial weeks and months after you quit smoking or tobacco use. - Medications help with cravings and withdrawal symptoms and they greatly increase your chances of successfully quitting. The patient was not interested in a prescription for tobacco cessation medications. Nursing Annual Screening: Fall History Screen During the past 12 months, have you had any falls? Patient does not report any falls in the past 12 months. MEDICATIONS: Patient is on one of the following medication classes: Antihypertensives, Antidepressants, Antipsychotics, Diuretics, or Controlled substance medication used for pain. FALL RISK ADVICE: Fall Risk Advice provided. Handout entitled Fall Prevention At Home reviewed and given to patient and/or significant other. Script Talk Screen Are you able to read your prescription bottles with your glasses, magnifiers or other aids? Yes or patient not taking any prescriptions. Skin Screen Patient reports any current pressure ulcers, a history of pressure ulcers, or a wound from a senior medical technologist or Patient is bed-confined or a wheelchair-user or Patient requires assistance to transfer/change position No, Skin Screen is Negative Home Abuse/Violence Screen Is your home free of abuse and violence? Yes MOVE! Program Screen Body Mass Index (BMI)= BMI not available without height Jolon: Collection DT Specimen Test Name Result Units Ref Range 01/29/2021 08:52 BLOOD HEMOGLOBIN A1C 4.5 % 4.0 - 6.0 [place] Hgb A1C: No data available Marcella Hgb A1C: No data available Point of Care Hgb A1C: POC HGB A1C____ Outpatient Nutrition Screen Body Mass Index (BMI)= BMI not available without height Jolon: Collection DT Specimen Test Name Result Units Ref Range 01/29/2021 08:52 BLOOD HEMOGLOBIN A1C 4.5 % 4.0 - 6.0 [place] Hgb A1C: No data available Marcella Hgb A1C: No data available Point of Care Hgb A1C: POC HGB A1C____ Is patient's BMI less than 18.5? No Does patient have swallowing, coughing, or chewing problems affecting oral intake? No Has patient experienced unplanned weight loss or gain greater than 10 pounds over the last 2 months? No Is patient's Hgb A1C (Glycosylated Hemoglobin) greater than 9.5? No Is patient receiving Total Parenteral Nutrition (TPN) or Tube Feedings? No Patient Health Education Screen BARRIERS/SPECIAL NEEDS: Financial implications PREFERRED STYLE OF LEARNING: No preference stated Client Assistive Service (BIJAN) Screen Does the patient require assistance with outpatient visit? Dyana /marli/ HARSHAD TO L.P.N, LPN Signed: 08/20/2022 09:09 HARSHAD TO [facility]
--- OUTSIDE RECORDS SUMMARY | 2023-08-05 13:55 | XMS_ITS | Encounter Summary ---
Author Name [facility] Organization [facility] Address [address] [place] [address] Support Name Relationship Address Phone ANTOINE SKELTON Next of Kin , RADHA [address] [place], CARIE Emergency Contact , [place] ANTOINE SKELTON Next of Kin , RADHA [address] [place], CARIE Emergency Contact , [place] Insurance Providers: All historical and current Section [...] AID (WNR) Aug 08, 2013 MEDICAI D [id number] [phone] DERICK SKELTON PATIENT MEDICARE (WNR) MEDICARE (M) PART A Sep 07, 2016 PART A [id number] DERICK SKELTON PATIENT Selected Encounter This section includes the information on record at [place] for the Encounter. Date/Time Encounter Type Encounter Description Reason Provider Source Jun 04, 2023 09:00 AM ELECTROCARDIOGRAM REPORT EKG ICD-10-CM Z13.6 Encounter for screening for cardiovascular disorders PETRA HART MA E Encounter Template Text not used by ID Assessments - Encounter Diagnoses This section includes the primary and secondary diagnoses documented for the Encounter. Date/Time Primary/Secondary Diagnosis Diagnosis Name Provider Source Jun 04, 2023 09:01 AM PRIMARY Encounter for screening for cardiovascular disorders [facility] Plan of Treatment: Future Appointments (+ 6 months) and Future Tests (+/- 45 days) The Plan of Treatment section includes future care activities for the [facility] This section includes future appointments and future orders which are active, pending or scheduled. Future Appointments This section includes appointments that were scheduled to occur 6 months from the date of the Encounter, up to a maximum of 20 appointments. The data comes from all [facility]. Appointment Date/Time Appointment Type Appointme nt Facility Name July 16, 2023 09:00 AM [facility] [place] [facility] Sep 23, 2023 08:15 AM [facility]ULATORY - NONE [place] [facility] Sep 23, 2023 09:15 AM [facility] - [facility]IC[facility] Active, Pending, and Scheduled Orders This section includes a listing of several types of active, pending, and scheduled orders, including clinic medications orders, diagnostic test orders, procedure orders and consult orders; where the start date of the order is 45 days before the date of the Encounter or 45 days after the date of theEncounter. The data comes from all [facility]. Test Date/Time Test Type Test Details Facility Name Apr 29, 2023 12:00 AM Laboratory - Chemi stry Order BASIC METABOLIC PANEL+MG PLASMA SP ONCE [facility] Apr 29, 2023 12:00 AM Laboratory - Chemi stry Order CBC BLOOD SP [facility] Jun 27, 2023 12:19 PM Consult Order COMMUNITY CARE-CHIROPRACTIC Cons Van Driver's Choice [facility] July 18, 2023 12:00 AM Laboratory - Chemi stry Order CBC BLOOD SP ONCE [facility] July 18, 2023 12:00 AM Laboratory - Chemi stry Order IRON GROUP SERUM SP [facility] Social History: Smoking Status (Most current) and Tobacco Use (All prior to encounter date) This section includes the most current, and the historical, smoking and tobacco- related health factors from the ID facility where the Encounter took place. Current Smoking Status This section includes the most current smoking, or tobacco-related health factor, from the ID facility where the Encounter took place. Date/Time Current Smoking Status Comment Facil ity Aug 20, 2022 09:15 AM VA-TOBACCO USER EVERY DAY [facility] Tobacco Use History This section includes a history of the smoking, or tobacco-related health factors, that were collected on or before the date of the Encounter. The data comes from the ID facility where the Encounter took place. Date/Time Smoking Status/Tobacco Use Comment F acility Aug 20, 2022 09:15 AM VA-TOBACCO USE ADVICE [facility] Aug 20, 2022 09:15 AM VA-TOBACCO USE MOBILE APPLICATION TESTER NO [facility] Aug 20, 2022 09:15 AM VA-TOBACCO USE MED NO [facility] Aug 20, 2022 09:15 AM VA-TOBACCO USE WI 30 MIN OF WAKE UP [facility] Aug 20, 2022 09:15 AM VA-TOBACCO USER EVERY DAY [facility] Sep 12, 2021 09:15 AM VA-TOBACCO USE 30 YEARS OR MORE [facility] Sep 12, 2021 09:15 AM VA-TOBACCO USE ADVICE [facility] Sep 12, 2021 09:15 AM VA-TOBACCO USE MOBILE APPLICATION TESTER NO [facility] Sep 12, 2021 09:15 AM VA-TOBACCO USE MED NO [facility] Sep 12, 2021 09:15 AM VA-TOBACCO USE WI 30 MIN OF WAKE UP [facility] Sep 12, 2021 09:15 AM VA-TOBACCO USER EVERY DAY [facility] Sep 01, 2020 01:30 PM VA-TOBACCO DOESNT USE WI 30 MIN WAKEUP [facility] Sep 01, 2020 01:30 PM VA-TOBACCO USE 30 YEARS OR MORE [facility] Sep 01, 2020 01:30 PM VA-TOBACCO USE ADVICE [facility] Sep 01, 2020 01:30 PM VA-TOBACCO USE MOBILE APPLICATION TESTER NO [facility] Sep 01, 2020 01:30 PM VA-TOBACCO USE MED NO [facility] Sep 01, 2020 01:30 PM VA-TOBACCO USER EVERY DAY [facility] Sep 27, 2019 09:35 AM VA-TOBACCO USE 30 YEARS OR MORE [facility] Sep 27, 2019 09:35 AM VA-TOBACCO USE ADVICE [facility] Sep 27, 2019 09:35 AM VA-TOBACCO USE MOBILE APPLICATION TESTER NO [facility] Sep 27, 2019 09:35 AM VA-TOBACCO USE MED NO [facility] Sep 27, 2019 09:35 AM VA-TOBACCO USE WI 30 MIN OF WAKE UP [facility] Sep 27, 2019 09:35 AM VA-TOBACCO USER EVERY DAY [facility] Mar 04, 2018 01:45 PM VA-TOBACCO USE 30 YEARS OR MORE [facility] Mar 04, 2018 01:45 PM VA-TOBACCO USE ADVICE [facility] Mar 04, 2018 01:45 PM VA-TOBACCO USE MOBILE APPLICATION TESTER NO [facility] Mar 04, 2018 01:45 PM VA-TOBACCO USE MED NO [facility] Mar 04, 2018 01:45 PM VA-TOBACCO USE WI 30 MIN OF WAKE UP [facility] Mar 04, 2018 01:45 PM VA-TOBACCO USER EVERY DAY [facility] Apr 22, 2017 10:01 AM CURRENT TOBACCO USER [facility] Apr 16, 2016 09:52 AM CURRENT TOBACCO USER [facility] July 26, 2014 09:08 AM CURRENT TOBACCO USER [facility] Dec 31, 2013 10:06 AM CURRENT TOBACCO USER [facility] Sep 05, 2012 09:27 AM CURRENT TOBACCO USER [facility] Nov 25, 2011 09:12 AM CURRENT TOBACCO USER [facility] Feb 08, 2011 10:04 AM CURRENT TOBACCO USER [facility] May 01, 2010 10:24 AM CURRENT TOBACCO USER [facility] Jul 03, 2009 08:42 AM CURRENT TOBACCO USER [facility]
--- OUTSIDE RECORDS SUMMARY | 2023-08-05 13:55 | XMS_ITS | Encounter Summary ---
Author Name Department of [facility] Organization Department of [facility] Address [address] [place] [address] Support Name Relationship Address Phone ANTOINE SKELTON Next of Kin , RADHA [address] [place] CHAVEZ Emergency Contact , [place] [phone] ANTOINE SKELTON Next of Kin , RADHA [address] KATHY, CARIE Emergency Contact , [place] Insurance Providers: All historical and current Section Date Range: From patient's date of to the date document was created. This section includes the names of all active insurance providers for the patient. Insurance Provider Type of Coverage Plan Name Start of Policy Coverage End of Policy Coverage Group Number Member ID Insurance Provider's Telephone Number Policy Abiley's Name Patient's Relationship to Policy Bailey MEDICAID (WNR) MEDICAID MEDIC AID (WNR) Aug 08, 2013 MEDICAI D [id number] [phone] DERICK SKELTON PATIENT MEDICARE (WNR) MEDICARE (M) PART A Sep 07, 2016 PART A [id number] DERICK SKELTON PATIENT Selected Encounter This section includes the information on record at [place] for the Encounter. Date/Time Encounter Type Encounter Description Reason Pro vider Source IHE Encounter Template Text not used by [place]
--- OUTSIDE RECORDS SUMMARY | 2023-08-05 13:55 | XMS_ITS | Encounter Summary ---
Author Name [facility] of [facility] Organization Department of [facility] Address [address] [place] [address] Support Name Relationship Address Phone ANTOINE SKELTON Next of Kin , RADHA [address] [address], CARIE Emergency Contact , [place] ANTOINE SKELTON Next of Kin , RADHA [address] MANTALA, CARIE Emergency Contact , [place] Insurance Providers: All historical and current Section [...] AID (WNR) Aug 08, 2013 MEDICAI D [id number] DERICK SKELTON PATIENT MEDICARE (WNR) MEDICARE (M) PART A Sep 07, 2016 PART A [id number] EDRICK SKELTON PATIENT Selected Encounter This section includes the information on record at [place] for the Encounter. Date/Time Encounter Type Encounter Description Reason Provider Source Aug 30, 2022 10:00 AM SELF CARE MNGMENT TRAINING PHYSICAL THERAPY ICD-10-CM R26.89 Other abnormalities of gait and mobility BROOKLYN FOSTER [facility] Encounter Template Text not used by [place] Assessments - Encounter Diagnoses This section includes the primary and secondary diagnoses documented for the Encounter. Date/Time Primary/Secondary Diagnosis Diagnosis Name Provider Source Aug 30, 2022 10:44 AM PRIMARY Other abnormalities of gait and mobility BROOKLYN FOST[facility] Plan of Treatment: Future Appointments (+ 6 months) and Future Tests (+/- 45 days) The Plan of Treatment section includes future care activities for the [facility] This section includes future appointments and future orders which are active, pending or scheduled. Future Appointments This section includes appointments that were scheduled to occur 6 months from the date of the Encounter, up to a maximum of 20 appointments. The data comes from all [facility] facilities. Appointment Date/Time Appointment Type Appointme nt Facility Name Oct 16, 2022 01:45 PM AMBULATORY - NONE [facility] Oct 21, 2022 09:00 AM AMBULATORY - REHAB MEDICIN E [facility] Oct 23, 2022 07:00 AM AMBULATORY - NONE [facility] Oct 28, 2022 05:00 PM AMBULATORY - REHAB MEDICIN E [facility] Nov 01, 2022 09:00 AM AMBULATORY - REHAB MEDICIN E [facility] Nov 13, 2022 09:00 AM AMBULATORY - PSYCHIATRY [facility] Nov 20, 2022 08:00 AM AMBULATORY - PSYCHIATRY [facility] Dec 05, 2022 10:15 AM AMBULATORY - SURGERY [facility] Dec 30, 2022 10:15 AM AMBULATORY - SURGERY [facility] Lab Results: +/- 30 days of the encounter This section includes the Chemistry and Hematology Lab Results on record with MI for the patient. Radiology Reports and Pathology Reports are provided separately, in subsequent sections. Lab Results This section contains the Chemistry/Hematology Results that were resulted 30 days before or 30 daysafter the date of the Encounter. Date/Time Source Result Type Result - Unit Interpretation Reference Range Comment Aug 20, 2022 08:[address] [facility] PTH-N-TACT Specimen Type: PLASMA No comment entered. Ordering Provider: KAREN DOVE Report Released Date/Time: Aug 19, 2022 04:38 PM Reporting Lab: [facility] [id number] Performing Lab: [facility] [address] PTH-N-TACT 62.0 8.7-77.1 Aug 20, 2022 08:12 AM [facility] 12 Specimen Type: SERUM No comment entered. Ordering Provider: KAREN DOVE Report Released Date/Time: Aug 19, 2022 04:38 PM Reporting Lab: [facility] [id number] Performing Lab: [facility] [id number] B 12 213 213-816 Aug 20, 2022 08:[address] [facility] FOLATE Specimen Type: SERUM No comment entered. Ordering Provider: KAREN DOVE Report Released Date/Time: Aug 19, 2022 04:38 PM Reporting Lab: [facility] [id number] Performing Lab: [facility] [address] FOLATE 16.5 See_Commen t Aug 20, 2022 08:[address] [facility] VIT D 25-OH,TOTAL Specimen Type: SERUM No comment entered. Ordering Provider: KAREN DOVE Report Released Date/Time: Aug 19, 2022 04:38 PM Reporting Lab: [facility] [id number] Performing Lab: [facility] [address] VIT D 25-OH,TOTAL 12 12-50 Aug 20, 2022 08:[address] [facility] TSH W/REFLEX TO FREE T4 Specimen Type: PLASMA No comment entered. Ordering Provider: KAREN DOVE Report Released Date/Time: Aug 19, 2022 04:38 PM Reporting Lab: [facility] [address] Performing Lab: [facility] [address] TSH 0.75 0.35-4.94 Aug 20, 2022 08:[address] [facility] RETICS Specimen Type: BLOOD No comment entered. Ordering Provider: KAREN DOVE Report Released Date/Time: Aug 19, 2022 04:38 PM Reporting Lab: [facility] [phone] Performing Lab: [facility] [address] ABS RETIC 0.0382 0.0300-0.1 000 .RETICULOCYTE 1.19 0.6-2.0 IMMATURE RETIC 11.5 1.0-14.0 .RETICULOCYTE HE 33.3 28.2-36.6 Aug 20, 2022 08:[address] [facility] PHOSPHORUS Specimen Type: PLASMA No comment entered. Ordering Provider: KAREN DOVE Report Released Date/Time: Aug 19, 2022 04:38 PM Reporting Lab: [facility] [phone] Performing Lab: [facility] [address] PHOSPHORUS 3.5 2.3-4.7 Aug 20, 2022 08:[address] [facility] PSA Specimen Type: SERUM No comment entered. Ordering Provider: KAREN DOVE Report Released Date/Time: Aug 19, 2022 04:41 PM Reporting Lab: [facility] [phone] Performing Lab: [facility] [address] PSA 0.01 See_Commen t Aug 20, 2022 08:[address] [facility] COMPREHENSIVE METABOLIC PANEL+MG Specimen Type: PLASMA No comment entered. Ordering Provider: KAREN DOVE Report Released Date/Time: Aug 19, 2022 04:38 PM Reporting Lab: [facility] [id number] Performing Lab: [facility] [address] CREATININE 1.2 0.7-1.2 UREA NITROGEN 9 8-26 [...] See_Commen t Aug 20, 2022 08:[address] [facility] CBC Specimen Type: BLOOD No comment entered. Ordering Provider: KAREN DOVE Report Released Date/Time: Aug 19, 2022 04:38 PM Reporting Lab: [facility] [id number] Performing Lab: [facility] [address] WBC 4.78 4.0-11.0 RBC 3.21 L 4.6-6.2 HGB 10.6 L 13.5-17.9 HCT 32.3 L 41-54 MCV 100.6 H 80-100 MCH 33.0 27-33 MCHC 32.8 32.0-37.5 PLT 172 150-400 MPV 10.4 7.4-10.4 RDW 14.3 11.5-14.5 .RETICULOCYTE HE 33.3 28.2-36.6 Aug 20, 2022 08:[address] [facility] METHYLMALONIC ACID Specimen Type: SERUM No comment entered. Ordering Provider: KAREN DOVE Report Released Date/Time: Aug 20, 2022 09:30 AM Reporting Lab: [facility] [phone] Performing Lab: [facility] [address] METHYLMALONIC ACID 774 H 0-400 Aug 20, 2022 08:[address] [facility] FERRITIN Specimen Type: SERUM No comment entered. Ordering Provider: KAREN DOVE Report Released Date/Time: Aug 20, 2022 03:07 PM Reporting Lab: [facility] [phone] Performing Lab: [facility] [address] FERRITIN 29.4 21.8-274.7 Social History: Smoking Status (Most current) and Tobacco Use (All prior to encounter date) This section includes the most current, and the historical, smoking and tobacco- related health factors from the [place] facility where the Encounter took place. Current Smoking Status This section includes the most current smoking, or tobacco-related health factor, from the [place] facility where the Encounter took place. Date/Time Current Smoking Status Comment Silvia adkins Aug 20, 2022 09:15 AM VA-TOBACCO USE MELT ROOM OPERATOR NO [facility] Tobacco Use History This section includes a history of the smoking, or tobacco-related health factors, that were collected on or before the date of the Encounter. The data comes from the [place] facility where the Encounter took place. Date/Time Smoking Status/Tobacco Use Comment F acility Aug 20, 2022 09:15 AM VA-TOBACCO USE ADVICE [facility] Aug 20, 2022 09:15 AM VA-TOBACCO USE MELT ROOM OPERATOR NO [facility] Aug 20, 2022 09:15 AM VA-TOBACCO USE MED NO [facility] Aug 20, 2022 09:15 AM VA-TOBACCO USE [place] [address] UP [facility] Aug 20, 2022 09:15 AM VA-TOBACCO USER EVERY DAY [facility] Sep 12, 2021 09:15 AM VA-TOBACCO USE [address] [facility] Sep 12, 2021 09:15 AM VA-TOBACCO USE ADVICE [facility] Sep 12, 2021 09:15 AM VA-TOBACCO USE MELT ROOM OPERATOR NO [facility] Sep 12, 2021 09:15 AM VA-TOBACCO USE MED NO [facility] Sep 12, 2021 09:15 AM VA-TOBACCO USE [place] [address] [facility] Sep 12, 2021 09:15 AM VA-TOBACCO USER EVERY DAY [facility] Sep 01, 2020 01:30 PM VA-TOBACCO DOESNT USE [place] [address] [facility] Sep 01, 2020 01:30 PM VA-TOBACCO USE [address] [facility] Sep 01, 2020 01:30 PM VA-TOBACCO USE ADVICE [facility] Sep 01, 2020 01:30 PM VA-TOBACCO USE MELT ROOM OPERATOR NO [facility] Sep 01, 2020 01:30 PM VA-TOBACCO USE MED NO [facility] Sep 01, 2020 01:30 PM VA-TOBACCO USER EVERY DAY [facility] Sep 27, 2019 09:35 AM VA-TOBACCO USE [address] [facility] Sep 27, 2019 09:35 AM VA-TOBACCO USE ADVICE [facility] Sep 27, 2019 09:35 AM VA-TOBACCO USE MELT ROOM OPERATOR NO [facility] Sep 27, 2019 09:35 AM VA-TOBACCO USE MED NO [facility] Sep 27, 2019 09:35 AM VA-TOBACCO USE [place] [address] [facility] Sep 27, 2019 09:35 AM VA-TOBACCO USER EVERY DAY [facility] Mar 04, 2018 01:45 PM VA-TOBACCO USE [address] [facility] Mar 04, 2018 01:45 PM VA-TOBACCO USE ADVICE [facility] Mar 04, 2018 01:45 PM VA-TOBACCO USE MELT ROOM OPERATOR NO [facility] Mar 04, 2018 01:45 PM VA-TOBACCO USE MED NO [facility] Mar 04, 2018 01:45 PM VA-TOBACCO USE [place] [address] [facility] Mar 04, 2018 01:45 PM VA-TOBACCO USER EVERY DAY [facility] Apr 22, 2017 10:01 [address] TOBACCO USER [facility] Apr 16, 2016 09:52 AM CURRENT TOBACCO USER [facility] July 26, 2014 09:08 AM CURRENT TOBACCO USER [facility] Dec 31, 2013 10:06 AM CURRENT TOBACCO USER [facility] Sep 05, 2012 09:27 AM CURRENT TOBACCO USER [facility] Nov 25, 2011 09:12 AM CURRENT TOBACCO USER [facility] Feb 08, 2011 10:04 AM CURRENT TOBACCO USER [facility] May 01, 2010 10:24 AM CURRENT TOBACCO USER [facility] Jul 03, 2009 08:42 AM CURRENT TOBACCO USER [facility] Radiology Reports: +/- 30 days of [...] the Encounter. The data comes from all [facility] facilities. Date/Time Radiology Report Provider Source Aug 20, 2022 10:08 AM LDCT LUNG CANCER SCREENING: FRANCES SKELTON [id number] -[id number] M Exm Date: AUG 20, 2022@10:08 Req Phys: KAREN DOVE Loc: [facility] PACT CHANTEL 4D (Req'g Loc) Img Loc: CT IMAGING Service: Unknown (Case [id number] COMPLETE) LDCT LUNG CANCER SCREENING (CT Detailed) CPT:02024 Reason for Study: LDCT f/u of a [...] 20, 2022 Date Verified: AUG 20, 2022 Dependency Program Director E-Sig:/ES/JUAN MANUEL SHIELDS MD Report: EXAM: LDCT [...] Interpreting Staff: JUAN MANUEL SHIELDS MD, RADIOLOGIST (Dependency Program Director) /JUAN MANUEL [facility] Encounter Notes: All associated encounter notes This section contains the clinical notes associated to the Encounter. Date/Time Encounter Note(s) Provider Source Aug 30, 2022 07:43 AM PHYSICAL THERAPY INITIAL EVALUATION NOTE: LOCAL TITLE: PT-EVALUATION NOTE STANDARD TITLE: PHYSICAL THERAPY INITIAL EVALUATION NOTE DATE OF NOTE: AUG 30, 2022@07:43 ENTRY DATE: AUG 30, 2022@07:43:23 AUTHOR: BROOKLYN FOSTER EXP COSIGNER: URGENCY: STATUS: COMPLETED Brief Physical Therapy Evaluation for Equipment Provision Dx: other abnormalities of gait/mobility Tx: PT eval high complexity: 10 min, SCM:20 min Active problems - Computerized Problem List is the source for the followin. Foot Pain 2. Mixed Incontinence 3. Heavy tobacco smoker (SNOMED CT 376182802744014) 4. HEADACHE 5. Numbness * 6. Depression (SNOMED CT 88899263) 7. Alc Dependence, NOS 8. HYPERCHOLESTEROLEMIA 9. Chronic post-traumatic stress disorder following combat (SNOMED CT 10. Paresis (Pathologic Function) * 11. Lumbar Pain 12. Cocaine Depend, Remiss 13. Cannabis Abuse, Cont 14. Depressive episode (SNOMED CT 14957734) 15. MDD, Recurrent, unspec 16. Abstinent alcoholic (SNOMED CT 184825224) 17. Muscle Weakness 18. Idiopathic chronic neuropathy (SNOMED CT 728225833) 19. Other and unspecified injury to knee, leg, ankle, and foot 20. Colonic Polyps - one hyperplastic @ rectum 21. Screening for other specified conditions 22. Rash and other nonspecific skin eruption 23. Malign Neopl Prostate 24. Neuroma, Digital/Bay's 25. Iron deficiency anemia (SNOMED CT 59973844) 26. Adrenal mass (SNOMED CT 892303284) 27. Hip pain 28. Back pain 29. Hypomagnesemia 30. Lumbar spondylosis SUBJECTIVE: Pt is a [address] presenting to PT to be evaluated for a rollator and MWC. Pt notes he has bad balance from neuropathy. He uses a SEC or an arm of a caregiver to get around in his house. Pt notes he is unable to walk more than 1/2 block before he sits and rests. He is currently borrowing a wheelchair from a friend but they need it back. Would like a MWC he can self- propel and that will go over gravel. He recently had an OT home consult who ordered a cushion for his current w/c. He feels the w/c fits him width-nguyen but is a little short depth-nguyen (18x16). Weight/Height for DME purposes: Unavailable (08/20/2022 09:00). 08/30: 155# per pt report Unavailable (08/20/2022 09:00) 08/30: 6' Home Environment: Type of Home: rambler Stairs to enter: has a ramp Stairs within home: none Assistance Available: lives with sister Doorway width considerations: 26 per OT note Transportation: not driving- sister drives and has a Jeep. She is able to lift his current MWC into/out of vehicle. Mobility: -Current home mobility: SEC or holding onto caregiver or furniture -Current community mobility: MWC -Previous Level of Function/change in level of function: indep without diff -Current Assistive Devices: SEC Fall History: 30-40 falls over the past 12 months. Recently fractured his L tibia. Wound hx: none on legs Pain: pain in legs d/t neuropathy Patient Goals: get a rollator and MWC Red Flags: Endorses personal history of prostate cancer. Denies any UE or LE progressive weakness, unexplained weight loss, loss of bowel/bladder control, pain with rest, fevers, chills, infections. OBJECTIVE: OBSERVATION: Wears a knee brace on L knee. Fractured his tibia 8 wks ago. Pt was NWB til last week. Is having home PT. Able to ambulate with WBAT on L. Transfers:indep without difficulty but increased time GAIT SPEED: .381 m/s (measure over 10 feet or 5 ceiling tiles; convert to m/s (3.048/time to complete) < 0.4 m/s were more likely to be household ambulator 0.4 - 0.8 m/s limited community ambulator > 0.8 m/s community ambulator >1.1 for effective community ambulation FUNCTIONAL STRENGTH SCREEN: *30-Second Chair Stand Test: 5 reps from table at lowest setting Normative Repetitions (Duyen & Butch, 2013) Age Men Women 70-74 12-17 10-15 BALANCE: Four Stage Balance Test: (older adults unable to maintain Tandem 10' are at increased risk for falls) Romberg: unable Modified Tandem:unable Education and demonstration provided regarding proper rollator use including ambulation, brakes, curb assist, sitting on rollator to rest with rollator against stationary object, transfers and folding to load into vehicle. -Pt independently ambulating 50 ft with rollator -Pt independently manipulating brakes -Pt independently using curb assist -Pt independently transferring with device -Pt independently folding device -Pt instructed in adjusting rollator once received from prosthetics WHEELCHAIR: Pt appropriate for standard/transport wheelchair with [employer] Comfort Curve cushion. Measurements taken for [facility]: -Hip width:16 -Femur Length:21 -W/C recommended:18x18 Invacare 9000XT with [employer] Comfort Curve cushion -Education and demonstration provided regarding manual wheelchair use. Pt/caregiver demonstrated understanding after education provided of the following: -How to apply brakes -Leg rest use/manipulation -Folding to load into vehicle -Loading into vehicle maximizing leverage of wheels to simplify -Arm rest manipulation -Anti-tip use/manipulation -Wheelchair cushion use. -Safe transfers to/from wheelchair ASSESSMENT: Pt is a 71 y/o with reduced mobility referred to PT for standard wheelchair & rollator. Patient presents with impairments in pain, gait and balance leading to functional limitations in gait. Pt appropriate for manual wheelchair as listed above due to above limitations. We discussed trialing the MW first and if it doesn't suit his purposes in regards to going over uneven terrain, then he could discuss custom tires/wheelchair if appropriate. Pt appropriate for rollator to improve safety and tolerance for mobility. Pt able to ambulate using rollator independently. Consult to PROS for items. Equipment consults placed: 9000xt with [employer]ac[employer] Comfort Curve cushion, rollator Pt appropriate for skilled PT in order to address below goals. POC to include: w/c mgmt. PT eval is high complexity and clinical presentation is unstable. Rehab prognosis: fair Participation in life: pt limited in community activities and mobility. Response to tx intervention: Pt tolerated assessment without adverse effect. Patient Education of Treatment Plan: Patient indicates readiness to learn, verbalizes understanding, agreement and satisfaction with the treatment plan. Denies further questions. GOAL: 1. Pt will demonstrate safe transferring in/out of w/c and ability to safely operate brakes to improve safety with mobilty in 1 visit. GOAL MET. 2. Pt will safely ambulate with rollator walker to meet pt goal of increasing tolerated walking distance/walking more safely within 1 visits. GOAL MET. PLAN: discharge from PT /marli/ BROOKLYN FOSTER DPT PHYSICAL THERAPIST Signed: 08/30/2022 10:44 BROOKLYN FOSTER [facility]
--- OUTSIDE RECORDS SUMMARY | 2023-08-05 13:56 | XMS_ITS | Encounter Summary ---
Author Name [facility] Organization [facility] of [facility] Address [address] [place] [address] Support Name Relationship Address Phone ANTOINE SKELTON Next of Kin , RADHA [address] [place] [place] Emergency Contact , [place] ANTOINE SKELTON Next of Kin , RADHA [address] MANTALA, CARIE Emergency Contact , [place] Insurance Providers: All historical and current Section [...] AID (WNR) Aug 08, 2013 MEDICAI D [id number] DERICK SKELTON PATIENT MEDICARE (WNR) MEDICARE (M) PART A Sep 07, 2016 PART A [id number] DERICK SKELTON PATIENT Selected Encounter This section includes the information on record at [place] for the Encounter. Date/Time Encounter Type Encounter Description Reason Pro vider Source Jun 04, 2023 10:45 AM Outpatient Encounter EVENT (HISTORICAL) IHE Encounter Template Text not used by [place] Plan of Treatment: Future Appointments (+ 6 months) and Future Tests (+/- 45 days) The Plan of Treatment section includes future care activities for the patient from all [place] treatmentfacilities. This section includes future appointments and future orders which are active, pending or scheduled. Future Appointments This section includes appointments that were scheduled to occur 6 months from the date of the Encounter, up to a maximum of 20 appointments. The data comes from all [place] treatment facilities. Appointment Date/Time Appointment Type Appointme nt Facility Name July 16, 2023 09:00 AM AMBUL[place]ORY [place] [facility] Sep 23, 2023 08:15 AM AMBULATORY - NONE [place] [facility] Sep 23, 2023 09:15 AM [facility] Active, Pending, and Scheduled Orders This section includes a listing of several types of active, pending, and scheduled orders, including clinic medications orders, diagnostic test orders, procedure orders and consult orders; where the start date of the order is 45 days before the date of the Encounter or 45 days after the date of theEncounter. The data comes from all [place] treatment facilities. Test Date/Time Test Type Test Details Facility Name Apr 29, 2023 12:00 AM Laboratory - Chemi stry Order BASIC METABOLIC PANEL+MG PLASMA SP ONCE [facility] Apr 29, 2023 12:00 AM Laboratory - Chemi stry Order CBC BLOOD SP [facility] Jun 27, 2023 12:19 PM Consult Order COMMUNITY CARE-CHIROPRACTIC Cons Security Strategist's Choice [facility] July 18, 2023 12:00 AM Laboratory - Chemi stry Order CBC BLOOD SP ONCE [facility] July 18, 2023 12:00 AM Laboratory - Chemi stry Order IRON GROUP SERUM SP [facility] Social History: Smoking Status (Most current) and Tobacco Use (All prior to encounter date) This section includes the most current, and the historical, smoking and tobacco- related health factors from the [place] facility where the Encounter took place. Current Smoking Status This section includes the most current smoking, or tobacco-related health factor, from the [place] facility where the Encounter took place. Date/Time Current Smoking Status Comment Facil ity Aug 20, 2022 09:15 AM VA-TOBACCO USE [place] 30 MIN OF WAKE UP [facility] Tobacco Use History This section includes a history of the smoking, or tobacco-related health factors, that were collected on or before the date of the Encounter. The data comes from the [place] facility where the Encounter took place. Date/Time Smoking Status/Tobacco Use Comment F acility Aug 20, 2022 09:15 AM VA-TOBACCO USE ADVICE [facility] Aug 20, 2022 09:15 AM VA-TOBACCO USE ASSISTANT WOMEN'S TENNIS COACH NO [facility] Aug 20, 2022 09:15 AM VA-TOBACCO USE MED NO [facility] Aug 20, 2022 09:15 AM VA-TOBACCO USE [place] 30 MIN OF WAKE UP [facility] Aug 20, 2022 09:15 AM VA-TOBACCO USER EVERY DAY [facility] Sep 12, 2021 09:15 AM VA-TOBACCO USE 30 YEARS OR MORE [facility] Sep 12, 2021 09:15 AM VA-TOBACCO USE ADVICE [facility] Sep 12, 2021 09:15 AM VA-TOBACCO USE ASSISTANT WOMEN'S TENNIS COACH NO [facility] Sep 12, 2021 09:15 AM VA-TOBACCO USE MED NO [facility] Sep 12, 2021 09:15 AM VA-TOBACCO USE WI 30 MIN OF WAKE UP [facility] Sep 12, 2021 09:15 AM VA-TOBACCO USER EVERY DAY [facility] Sep 01, 2020 01:30 PM VA-TOBACCO DOESNT USE WI 30 MIN WAKEUP [facility] Sep 01, 2020 01:30 PM VA-TOBACCO USE 30 YEARS OR MORE [facility] Sep 01, 2020 01:30 PM VA-TOBACCO USE ADVICE [facility] Sep 01, 2020 01:30 PM VA-TOBACCO USE ASSISTANT 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'S TENNIS 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 NO [facility] Sep 01, 2020 01:30 PM VA-TOBACCO USE MED NO [facility] Sep 01, 2020 01:30 PM VA-TOBACCO USER EVERY DAY [facility] Sep 27, 2019 09:35 AM VA-TOBACCO USE 30 YEARS OR MORE [facility] Sep 27, 2019 09:35 AM VA-TOBACCO USE ADVICE [facility] Sep 27, 2019 09:35 AM VA-TOBACCO USE ASSISTANT 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'S TENNIS 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 NO [facility] Sep 27, 2019 09:35 AM VA-TOBACCO USE MED NO [facility] Sep 27, 2019 09:35 AM VA-TOBACCO USE [place] 30 MIN OF WAKE UP [facility] Sep 27, 2019 09:35 AM VA-TOBACCO USER EVERY DAY [facility] Mar 04, 2018 01:45 PM VA-TOBACCO USE 30 YEARS OR MORE [facility] Mar 04, 2018 01:45 PM VA-TOBACCO USE ADVICE [facility] Mar 04, 2018 01:45 PM VA-TOBACCO USE ASSISTANT WOMEN'S TENNIS COACH NO [facility] Mar 04, 2018 01:45 PM VA-TOBACCO USE MED NO [facility] Mar 04, 2018 01:45 PM VA-TOBACCO USE [place] 30 MIN OF WAKE UP [facility] Mar 04, 2018 01:45 PM VA-TOBACCO USER EVERY DAY [facility] Apr 22, 2017 10:01 AM CURRENT TOBACCO USER [facility] Apr 16, 2016 09:52 AM CURRENT TOBACCO USER [facility] July 26, 2014 09:08 AM CURRENT TOBACCO USER [facility] Dec 31, 2013 10:06 AM CURRENT TOBACCO USER [facility] Sep 05, 2012 09:27 AM CURRENT TOBACCO USER [facility] Nov 25, 2011 09:12 AM CURRENT TOBACCO USER [facility] Feb 08, 2011 10:04 AM CURRENT TOBACCO USER [facility] May 01, 2010 10:24 AM CURRENT TOBACCO USER [facility] Jul 03, 2009 08:42 AM CURRENT TOBACCO USER [facility]
--- OUTSIDE RECORDS SUMMARY | 2023-08-05 13:56 | XMS_ITS | Encounter Summary ---
Author Name [facility] Organization [facility] Address [address] [place] [address] Support Name Relationship Address Phone ANTOINE SKELTON Next of Kin , RADHA [address] [address] Emergency [place] , [place] ANTOINE SKELTON Next of Kin , [place] [address] [address], [place] Emergency Contact , [place] [phone] Insurance Providers: All historical and current Section [...] AID (WNR) Aug 08, 2013 MEDICAI D [id number] [phone] DERICK SKELTON PATIENT MEDICARE (WNR) MEDICARE (M) PART A Sep 07, 2016 PART A [id number] [phone] DERICK SKELTON PATIENT Selected Encounter This section includes the information on record at [place] for the Encounter. Date/Time Encounter Type Encounter Description Reason Provider Source Jun 04, 2023 09:46 AM OFFICE O/P EST HI 40 MIN ANESTHESIA PRE/POST-OP CONSULT ICD-10-CM Z71.6 Tobacco abuse counseling MARTHA ELIAS Gillian Encounter Template Text not used by DC Assessments - Encounter Diagnoses This section includes the primary and secondary diagnoses documented for the Encounter. Date/Time Primary/Secondary Diagnosis Diagnosis Name Provider Source Jun 04, 2023 09:52 AM PRIMARY Tobacco abuse counseling MARTHA ELIAS [facility] Jun 04, 2023 09:52 AM SECONDARY Anogenital herpesviral infection, unspecified MARTHA ELIAS [facility] Jun 04, 2023 09:52 AM SECONDARY Chronic obstructive pulmonary disease, unspecified MARTHA ELIAS [facility] Jun 04, 2023 09:52 AM SECONDARY Encounter for other preprocedural examination MARTHA ELIAS [facility] Jun 04, 2023 09:52 AM SECONDARY Idiopathic progressive neuropathy MARTHA ELIAS [facility] Jun 04, 2023 09:52 AM SECONDARY Major depressive disorder, recurrent, moderate MARTHA ELIAS [facility] Jun 04, 2023 09:52 AM SECONDARY Post-traumatic stress disorder, chronic MARTHA ELIAS [facility] Plan of Treatment: Future Appointments (+ 6 months) and Future Tests (+/- 45 days) The Plan of Treatment section includes future care activities for the patient from all [facility]. This section includes future appointments and future orders which are active, pending or scheduled. Future Appointments This section includes appointments that were scheduled to occur 6 months from the date of the Encounter, up to a maximum of 20 appointments. The data comes from all [facility]. Appointment Date/Time Appointment Type Appointme nt Facility Name July 16, 2023 09:00 AM AMBULATORY - PS[place]CHIATRY [place] [facility] Sep 23, 2023 08:15 AM [facility] NONE [facility] Sep 23, 2023 09:15 AM AMBULATORY - MEDICINE [facility] Active, Pending, and Scheduled Orders This section includes a listing of several types of active, pending, and scheduled orders, including clinic medications orders, diagnostic test orders, procedure orders and consult orders; where the start date of the order is 45 days before the date of the Encounter or 45 days after the date of theEncounter. The data comes from all [facility]. Test Date/Time Test Type Test Details Facility Name Apr 29, 2023 12:00 AM Laboratory - Chemi stry Order BASIC METABOLIC PANEL+MG PLASMA SP ONCE [facility] Apr 29, 2023 12:00 AM Laboratory - Chemi stry Order CBC BLOOD SP [facility] Jun 27, 2023 12:19 PM Consult Order COMMUNITY CARE-CHIROPRACTIC Cons Sales Activity Manager's Choice [facility] July 18, 2023 12:00 AM Laboratory - Chemi stry Order CBC BLOOD SP ONCE [facility] July 18, 2023 12:00 AM Laboratory - Chemi stry Order IRON GROUP SERUM SP [facility] Social History: Smoking Status (Most current) and Tobacco Use (All prior to encounter date) This section includes the most current, and the historical, smoking and tobacco- related health factors from the [place] facility where the Encounter took place. Current Smoking Status This section includes the most current smoking, or tobacco-related health factor, from the [place] facility where the Encounter took place. Date/Time Current Smoking Status Comment Facil ity Aug 20, 2022 09:15 AM VA-TOBACCO USER EVERY DAY [facility] Tobacco Use History This section includes a history of the smoking, or tobacco-related health factors, that were collected on or before the date of the Encounter. The data comes from the [place] facility where the Encounter took place. Date/Time Smoking Status/Tobacco Use Comment F acility Aug 20, 2022 09:15 AM VA-TOBACCO USE ADVICE [facility] Aug 20, 2022 09:15 AM VA-TOBACCO USE REFRIGERATION SYSTEMS INSTALLER NO [facility] Aug 20, 2022 09:15 AM VA-TOBACCO USE MED NO [facility] Aug 20, 2022 09:15 AM VA-TOBACCO USE WI 30 MIN OF WAKE UP [facility] Aug 20, 2022 09:15 AM VA-TOBACCO USER EVERY DAY [facility] Sep 12, 2021 09:15 AM VA-TOBACCO USE 30 YEARS OR MORE [facility] Sep 12, 2021 09:15 AM VA-TOBACCO USE ADVICE [facility] Sep 12, 2021 09:15 AM VA-TOBACCO USE REFRIGERATION SYSTEMS INSTALLER NO [facility] Sep 12, 2021 09:15 AM VA-TOBACCO USE MED NO [facility] Sep 12, 2021 09:15 AM VA-TOBACCO USE WI 30 MIN OF WAKE UP [facility] Sep 12, 2021 09:15 AM VA-TOBACCO USER EVERY DAY [facility] Sep 01, 2020 01:30 PM VA-TOBACCO DOESNT USE WI 30 MIN WAKEUP [facility] Sep 01, 2020 01:30 PM VA-TOBACCO USE 30 YEARS OR MORE [facility] Sep 01, 2020 01:30 PM VA-TOBACCO USE ADVICE [facility] Sep 01, 2020 01:30 PM VA-TOBACCO USE REFRIGERATION SYSTEMS INSTALLER NO [facility] Sep 01, 2020 01:30 PM VA-TOBACCO USE MED NO [facility] Sep 01, 2020 01:30 PM VA-TOBACCO USER EVERY DAY [facility] Sep 27, 2019 09:35 AM VA-TOBACCO USE 30 YEARS OR MORE [facility] Sep 27, 2019 09:35 AM VA-TOBACCO USE ADVICE [facility] Sep 27, 2019 09:35 AM VA-TOBACCO USE REFRIGERATION SYSTEMS INSTALLER NO [facility] Sep 27, 2019 09:35 AM VA-TOBACCO USE MED NO [facility] Sep 27, 2019 09:35 AM VA-TOBACCO USE WI 30 MIN OF WAKE UP [facility] Sep 27, 2019 09:35 AM VA-TOBACCO USER EVERY DAY [facility] Mar 04, 2018 01:45 PM VA-TOBACCO USE 30 YEARS OR MORE [facility] Mar 04, 2018 01:45 PM VA-TOBACCO USE ADVICE [facility] Mar 04, 2018 01:45 PM VA-TOBACCO USE REFRIGERATION SYSTEMS INSTALLER NO [facility] Mar 04, 2018 01:45 PM VA-TOBACCO USE MED NO [facility] Mar 04, 2018 01:45 PM VA-TOBACCO USE WI 30 MIN OF WAKE UP [facility] Mar 04, 2018 01:45 PM VA-TOBACCO USER EVERY DAY [facility] Apr 22, 2017 10:01 AM CURRENT TOBACCO USER [facility] Apr 16, 2016 09:52 AM CURRENT TOBACCO USER [facility] July 26, 2014 09:08 AM CURRENT TOBACCO USER [facility] Dec 31, 2013 10:06 AM CURRENT TOBACCO USER [facility] Sep 05, 2012 09:27 AM CURRENT TOBACCO USER [facility] Nov 25, 2011 09:12 AM CURRENT TOBACCO USER [facility] Feb 08, 2011 10:04 AM CURRENT TOBACCO USER [facility] May 01, 2010 10:24 AM CURRENT TOBACCO USER [facility] Jul 03, 2009 08:42 AM CURRENT TOBACCO USER [facility] Encounter Notes: All associated encounter notes This section contains the clinical notes associated to the Encounter. Date/Time Encounter Note(s) Provider Source Jun 04, 2023 11:21 AM ANESTHESIOLOGY NOTE: LOCAL TITLE: ANESTHESIA POST-ANESTHESIA EVALUATION STANDARD TITLE: ANESTHESIOLOGY NOTE DATE OF NOTE: JUN 04, 2023@11:21 ENTRY DATE: JUN 04, 2023@11:21:56 AUTHOR: MARTHA ELIAS COSIGNER: URGENCY: STATUS: COMPLETED POST-ANESTHESIA EVALUATION PACU PATIENT MET DISCHARGE CRITERIA Rehan score of > or = 8 ANESTHESIA TYPE ------- Monitored anesthesia care VITAL SIGNS Vital signs stable NORMAL PHYSIOLOGIC SYSTEMS ASSESSMENT Neuro/Mental Health: appropriate mentation or preoperative baseline Airway/Respiratory: normal respiratory status Cardiovascular: appropriate blood pressure, heart rate and rhythm Pain: comfortable, well controlled Postop nausea/vomiting: none STATUS AT SIGNOUT -------- stable DISPOSITION home // MARTHA ELIAS MD ANESTHESIOLOGIST Signed: 06/04/2023 11:22 MARTHA ELIAS [facility] Jun 04, 2023 09:46 AM ANESTHESIOLOGY NOTE: LOCAL TITLE: ANESTHESIA PRE-EVALUATION NOTE STANDARD TITLE: ANESTHESIOLOGY NOTE DATE OF NOTE: JUN 04, 2023@09:46 ENTRY DATE: JUN 04, 2023@09:46:41 AUTHOR: MARTHA ELIAS EXP COSIGNER: URGENCY: STATUS: COMPLETED Pre-Anesthesia Evaluation FRANCES SKELTON identified by name and . 72 year old MALE. MEDICAL HISTORY: Active problems - Computerized Problem List is the source for the followin. Heavy tobacco smoker (SNOMED CT 600964306262830) 2. Depression (SNOMED CT 88991393) 3. Chronic post-traumatic stress disorder following combat (SNOMED CT 4. Idiopathic chronic neuropathy (SNOMED CT 323396128) - EMG-proven 5. Lumbar spondylosis 6. Prostate Cancer (SCT 154122220) - status post radical retroprostatectomy 2012 complicated by incontinence 7. 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 Osteopenia - per 10/2022 DEXA 9. Recurrent falls - Likely driven by of his severe lower extremity neuropathy 10. Alcohol Abuse (SCT 08998402) 11. Gastritis - suspected NSAID-induced 2013 +/- EtOH: remains on PPI 12. COPD - Chronic Obstructive Pulmonary Disease ([facility] [id number]) 13. History of Polyp of Colon ([facility] [id number]) - last colonoscopy 06/21/2013 notable for hyperplastic polyp w/ repeat due June 2023 for screening purposes 14. 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 Insomnia ([facility] [id number]) 16. Vitamin D deficiency 17. Vitamin B12 deficiency (non anemic) 18. Exposure to potentially hazardous substance ([facility] [id number]) - Entered through [facility] 19. Genital herpes simplex - Uses PRN acyclovir SURGICAL HISTORY (WITH ANESTHESIA DETAILS AVAILABLE): JUN 04, 2023 Proc: EUS JUN 05, 2018 Proc: IPP-Primary ALLERGIES: BUTORPHANOL (Jul 03, 2009) BEE VENOM (July 13, 2019) MEDICATIONS: Active and Recently Outpatient Medications (excluding Supplies): Active Outpatient Medications Status 1) ACYCLOVIR 200MG CAP TAKE TWO CAPSULES BY MOUTH THREE ACTIVE TIMES A DAY FOR HSV 2) ATENOLOL 25MG TAB TAKE ONE TABLET BY MOUTH EVERY DAY ACTIVE FOR ANXIETY FOR ANXIETY 3) CARBOXYMETHYLCELLULOSE NA 0.5% OPH SOLN INSTILL 1 ACTIVE DROP IN BOTH EYES FOUR TIMES A DAY NEEDED FOR DRY EYES 4) CHOLECALCIF 25MCG (D3-1,000UNIT) TAB TAKE ONE TABLET ACTIVE BY MOUTH EVERY DAY FOR VITAMIN D 5) CYANOCOBALAMIN 1000MCG TAB TAKE ONE TABLET BY MOUTH ACTIVE EVERY DAY FOR B12 6) DULOXETINE HCL 30MG EC CAP TAKE THREE CAPSULES BY ACTIVE MOUTH EVERY MORNING FOR DEPRESSION 7) EPINEPHRINE (EQV-EPI-PEN) 0.3MG/0.3ML INJECT 1 PEN ACTIVE DIRECTED ONCE NEEDED FOR ALLERGIC REACTION 8) FERROUS GLUCONATE 324MG TAB TAKE ONE TABLET BY MOUTH ACTIVE (S) EVERY OTHER DAY FOR ANEMIA 9) FOLIC ACID 1MG TAB TAKE ONE TABLET BY MOUTH EVERY DAY ACTIVE 10) NALOXONE HCL 4MG/SPRAY SOLN NASAL SPRAY SPRAY 1 DOSE ACTIVE IN ONE NOSTRIL DIRECTED FOR UNRESPONSIVENESS THEN CALL 911 - IF NO CHANGE IN 2-3 MINUTES, GIVE SECOND DOSE IN OPPOSITE NOSTRIL 11) OLANZAPINE 2.5MG TAB TAKE ONE TABLET BY MOUTH AT ACTIVE BEDTIME FOR IRRITABILITY AND SLEEP 12) OLODATEROL/TIOTROP 2.5MCG/ACTUAT 60D INH INHALE 2 ACTIVE PUFFS BY INHALATION EVERY DAY FOR COPD 13) OMEPRAZOLE 20MG EC CAP TAKE TWO CAPSULES BY MOUTH ACTIVE TWICE A DAY ON AN EMPTY STOMACH, AT LEAST 30 MINUTES PRIOR TO A MEAL TO DECREASE STOMACH ACID 14) OMEPRAZOLE 40MG EC CAP TAKE ONE CAPSULE BY MOUTH ACTIVE TWICE A DAY FOR STOMACH ACID 15) ONDANSETRON HCL 4MG TAB TAKE ONE TABLET BY MOUTH ACTIVE EVERY DAY NEEDED FOR NAUSEA 16) SILDENAFIL CITRATE 100MG TAB TAKE ONE TABLET BY MOUTH ACTIVE EVERY DAY NEEDED 1 HOUR BEFORE ANTICIPATED SEXUAL ACTIVITY. FOR ERECTIONS. 17) THIAMINE 100MG TAB TAKE ONE TABLET BY MOUTH EVERY DAY ACTIVE (S) 18) TRAZODONE HCL 150MG TAB TAKE ONE TABLET BY MOUTH AT ACTIVE (S) BEDTIME FOR SLEEP Active Inpatient Medications (including Supplies): No Medications Found MEDICATIONS TAKEN TODAY: BCMA MEDS GIVEN TODAY - NONE FOUND Chronic Opioid Use: No Naltrexone Use: No Buprenorphine Use: No SOCIAL HISTORY: Tobacco Use: Yes, Heavy Alcohol Use: Yes, Heavy Substance Use: No, REVIEW OF SYSTEMS: METS: unable to assess/not documented Cardiac: denies smoker, copd Respiratory: Neurologic: peripheral neuropathy GERD: controlled with medications PTSD: Yes Prior History of Anesthesia Complications: No PHYSICAL EXAM: Weight: 142 lb [64.41 kg] (04/01/2023 10:27) Height: 71 in [180.3 cm] (04/01/2023 10:27) BMI: 19.8 Blood Pressure: 157/69 (04/01/2023 10:46) Pulse: 54 (04/01/2023 10:27) Pulse Oximetry: 100% (04/01/2023 10:27) Respiration: 18 (04/01/2023 10:27) Temperature: 98.3 F [36.8 C] (04/01/2023 10:27) Mallampati: III Mouth Opening: >3cm Thyromental: > 4cm Neck: full range of motion Dentition: full dentures Cardiac: *irregular Murmur Pulmonary: Bilaterally clear Neurologic: Alert LABS SODIUM 138 (04/01/23) POTASSIUM 3.4 L (04/01/23) CHLORIDE 105 (04/01/23) CO2 26 (04/01/23) GLUCOSE 103 H (04/01/23) UREA NITROGEN 16 (04/01/23) CREATININE 1.4 H (04/01/23) EGFR (10/11) 01/29/21 @ 0852 96 CREATININE EGFR (CKD-EPI) 04/01/23 @ 0926 54 L WBC 6.26 (04/01/23) HGB 8.9 L (04/01/23) HCT 28.2 L (04/01/23) PLT 189 (04/01/23) PT____ INR____ SGOT 24 (04/01/23) SGPT 10 (04/01/23) No data available TODAY'S LAB RESULTS LAB RESULTS TODAY - NONE FOUND Stress Test SII - Sabra Image Impression No data available for: CARDIOVASCULAR STRESS TEST Coronary Angiogram Selected Progress Notes No data available for: CARDIAC CATHETERIZATION CART PROCEDURE NOTE CT Angiogram No data available Pacemaker Note Chest Xray Impression for CHEST 1 VIEW, 04/24/21, case [id number] 1. No pneumothorax is identified following left lung nodule biopsy. The lung nodule was better demonstrated on prior CT examinations. 2. Mild blunting of the costophrenic angles, this may be related to scarring versus a trace amount of pleural fluid. Healed left-sided rib fracture deformities, unchanged from prior. No pulmonary edema. Thoracic aortic calcification. Cardiomediastinal silhouette does not appear enlarged. Degenerative changes of the spine. CT Chest No Reports found CT Head No data available PFT 06/04/23 09:46 CONFIDENTIAL PULMONARY FUNCTION TEST FRANCES SKELTON [id number] NOT INPATIENT : Sep PROCEDURE DATE/TIME: 09/29/09 10:16 - - - - - - - - - - - - - - - - - - - - - - - - - - - - - - - - - - - - - - - - SEX: M AGE:[age] in/150 lb AMBIENT: 22C/732T RACE: WHITE TECH: NON-SMOKER EFFORT: CONSULT DX: ............................... ............................... .................. UNITS PRED ACTUAL %PRED PREV1 PREV2 CI FLOWS.......................... ............................... .................. STANDARD STUDY (NOTES): (NOTES): FVC L 4.66 4.76 102.0 FEV1 L 3.55 2.69 75.8 PF L/SEC 7.669 4.590 59.8 4.70 KOU87-41 L/SEC 3.504 1.470 41.9 1.84 FEV1/FVC % 57 AFTER BRONCHODILATOR (NOTES): (NOTES): FVC L 4.66 4.86 104.2 FEV1 L 3.55 3.50 98.6 PF L/SEC 7.669 6.400 83.5 4.70 ISR44-60 L/SEC 3.504 2.630 75.1 1.84 FEV1/FVC % 72 INTERPRETATION................. ............................... .................. INTERPRETATION: Definite obstruction: FEV1/FVC ratio <CI and FEV1 < predicted.Moderate ( Fev1 >=50% and <80% ref )Bronchodilator response: > 30% Fev1 increase: Evidence of Asthma. Oximetry, Resting: Normal. Signed: Danielle Mi MD. 09-29-09 rn COMMENTS AND RECOMMENDATIONS: GOOD EFFORT, Spirometry data was ACCEPTABLE and REPRODUCIBLE. SPO2 92% ambient. INTERPRETED BY: REVIEWED BY: PREDICTED VALUE FORMULAS USED TLC .0795*HT+(.0032*AGE)-7.333 CRAPO '82 VC .06*HT-(.0214*AGE)-4.65 FRC .032*HT-2.94 RV .019*HT+(.0207*AGE)-2.24 FVC -.1933+(.75625*AGE)-(.799054*(A GE*AGE))+(.[id number]*(HT*HT))NHa david III FEV1 .5536-(.28500*AGE)-(.787684*(AG E*AGE))+(.67488304*(HT*HT))Raghavendra es III +99 PF 3.9*HT-(3*AGE)-49.36/60 GRANT IFH77-94 .0204*HT-(.038*AGE)+2.133 MVV 1.356*HT-(1.26*AGE)-21.4 DLCO-SB .410*HT-(.21*AGE)-26.31 COHB RONEY. ACT*(1+COHB) HB RONEY. HB+10.22/(1.7*HB)*ACT COTES NOTE: HT=height,WT=weight,ACT=actual measurement value Carotid Ultrasound US EXTRACRANIAL ARTERIES NON-INVAS/PHYSIOLOGIC/STARLA - NONE FOUND - 1Y ASA STATUS: Patient's preoperative assessment reviewed. There are no significant changes, new conditions, or additions from the patient's anesthesia preoperative assessment. NPO STATUS: Meets ASA guidelines (>2 hrs clear liquids, >6 hrs light meal, >8 hrs heavy meal) ANESTHESIA PLAN: Monitor Anesthesia Care (MAC) propofol IV analgesics ERAS PATHWAY: No BLOOD PRODUCT CONSENT: No INSULIN PROTOCOL: No The anesthetic plan including the risks, benefits, side effects and alternative options of the plan were discussed with the patient/responsible metals sales representative. The patient/metals sales representative has been encouraged to ask questions and any concerns have been addressed. The patient/metals sales representative endorses understanding of the information disclosed. The patient/metals sales representative voluntarily elects to move forward with the anesthetic plan. Phase II PACU full code No data available for: LIFE-SUSTAINING TREATMENT Life Sustaining Treatment Orders /es/ MARTHA ELIAS MD ANESTHESIOLOGIST Signed: 06/04/2023 09:52 MARTHA ELIAS [facility]
--- OUTSIDE RECORDS SUMMARY | 2023-08-05 13:57 | XMS_ITS | Encounter Summary ---
Author Name Department [facility] Organization [facility] of [facility] Address [address] [place] [address] Support Name Relationship Address Phone ANTOINE SKELTON Next of Kin , [place] [address] [place], [place] Contact , [place] [phone] ANTOINE SKELTON Next of Kin , [place] [address] [place], [place] Emergency Contact , [place] Insurance Providers: All historical and current Section [...] AID (WNR) Aug 08, 2013 MEDICAI D [id number] [phone] DERICK SKELTON PATIENT MEDICARE (WNR) MEDICARE (M) PART A Sep 07, 2016 PART A [id number] DERICK SKELTON PATIENT Selected Encounter This section includes the information on record at [place] for the Encounter. Date/Time Encounter Type Encounter Description Reason Provider Source Jun 04, 2023 09:15 AM ENDOSCOPIC US EXAM ESOPH GI ENDOSCOPY ICD-10-CM K22.89 Other specified disease of esophagus BILAL,MOHAMMAD IHE Encounter Template Text not used by [place] Assessments - Encounter Diagnoses This section includes the primary and secondary diagnoses documented for the Encounter. Date/Time Primary/Secondary Diagnosis Diagnosis Name Provider Source Jun 04, 2023 12:21 PM PRIMARY Other specified disease of esophagus CATRACHITA MALDONADO [facility] Jun 04, 2023 12:21 PM SECONDARY Other diseases of stomach and duodenum CATRACHITA MALDONADO [facility] Plan of Treatment: Future Appointments (+ 6 months) and Future Tests (+/- 45 days) The Plan of Treatment section includes future care activities for the patient from [facility] This section includes future appointments and future orders which are active, pending or scheduled. Future Appointments This section includes appointments that were scheduled to occur 6 months from the date of the Encounter, up to a maximum of 20 appointments. The data comes from all [facility]. Appointment Date/Time Appointment Type Appointme nt Facility Name July 16, 2023 09:00 AM AMBULATORY - [place]RY [place] [facility] Sep 23, 2023 08:15 AM AMBULATORY - NONE [place] [facility] Sep 23, 2023 09:15 AM [facility] Active, Pending, and Scheduled Orders This section [...] comes from all [facility]. Test Date/Time Test Type Test Details Facility Name Apr 29, 2023 12:00 AM Laboratory - Chemi stry Order BASIC METABOLIC PANEL+MG PLASMA SP ONCE [facility] Apr 29, 2023 12:00 AM Laboratory - Chemi stry Order CBC BLOOD SP [facility] Jun 27, 2023 12:19 PM Consult Order COMMUNITY CARE-CHIROPRACTIC Cons Trustee Of Estate's Choice [facility] July 18, 2023 12:00 AM Laboratory - Chemi stry Order CBC BLOOD SP ONCE [facility] July 18, 2023 12:00 AM Laboratory - Chemi stry Order IRON GROUP SERUM SP [facility] Social History: Smoking Status (Most current) and Tobacco Use (All prior to encounter date) This section includes the most current, and the historical, smoking and tobacco- related health factors from the [place] facility where the Encounter took place. Current Smoking Status This section includes the most current smoking, or tobacco-related health factor, from the [place] facility where the Encounter took place. Date/Time Current Smoking Status Comment Facil ity Aug 20, 2022 09:15 AM VA-TOBACCO USER EVERY DAY [facility] Tobacco Use History This section includes a history of the smoking, or tobacco-related health factors, that were collected on or before the date of the Encounter. The data comes from the [place] facility where the Encounter took place. Date/Time Smoking Status/Tobacco Use Comment F acility Aug 20, 2022 09:15 AM VA-TOBACCO USE ADVICE [facility] Aug 20, 2022 09:15 AM VA-TOBACCO USE SERVICE CLERK NO [facility] Aug 20, 2022 09:15 AM VA-TOBACCO USE MED NO [facility] Aug 20, 2022 09:15 AM VA-TOBACCO USE WI 30 MIN OF WAKE UP [facility] Aug 20, 2022 09:15 AM VA-TOBACCO USER EVERY DAY [facility] Sep 12, 2021 09:15 AM VA-TOBACCO USE 30 YEARS OR MORE [facility] Sep 12, 2021 09:15 AM VA-TOBACCO USE ADVICE [facility] Sep 12, 2021 09:15 AM VA-TOBACCO USE SERVICE CLERK NO [facility] Sep 12, 2021 09:15 AM VA-TOBACCO USE MED NO [facility] Sep 12, 2021 09:15 AM VA-TOBACCO USE WI 30 MIN OF WAKE UP [facility] Sep 12, 2021 09:15 AM VA-TOBACCO USER EVERY DAY [facility] Sep 01, 2020 01:30 PM VA-TOBACCO DOESNT USE WI 30 MIN WAKEUP [facility] Sep 01, 2020 01:30 PM VA-TOBACCO USE 30 YEARS OR MORE [facility] Sep 01, 2020 01:30 PM VA-TOBACCO USE ADVICE [facility] Sep 01, 2020 01:30 PM VA-TOBACCO USE SERVICE CLERK NO [facility] Sep 01, 2020 01:30 PM VA-TOBACCO USE MED NO [facility] Sep 01, 2020 01:30 PM VA-TOBACCO USER EVERY DAY [facility] Sep 27, 2019 09:35 AM VA-TOBACCO USE 30 YEARS OR MORE [facility] Sep 27, 2019 09:35 AM VA-TOBACCO USE ADVICE [facility] Sep 27, 2019 09:35 AM VA-TOBACCO USE SERVICE CLERK NO [facility] Sep 27, 2019 09:35 AM VA-TOBACCO USE MED NO [facility] Sep 27, 2019 09:35 AM VA-TOBACCO USE WI 30 MIN OF WAKE UP [facility] Sep 27, 2019 09:35 AM VA-TOBACCO USER EVERY DAY [facility] Mar 04, 2018 01:45 PM VA-TOBACCO USE 30 YEARS OR MORE [facility] Mar 04, 2018 01:45 PM VA-TOBACCO USE ADVICE [facility] Mar 04, 2018 01:45 PM VA-TOBACCO USE SERVICE CLERK NO [facility] Mar 04, 2018 01:45 PM VA-TOBACCO USE MED NO [facility] Mar 04, 2018 01:45 PM VA-TOBACCO USE WI 30 MIN OF WAKE UP [facility] Mar 04, 2018 01:45 PM VA-TOBACCO USER EVERY DAY [facility] Apr 22, 2017 10:01 AM CURRENT TOBACCO USER [facility] Apr 16, 2016 09:52 AM CURRENT TOBACCO USER [facility] July 26, 2014 09:08 AM CURRENT TOBACCO USER [facility] Dec 31, 2013 10:06 AM CURRENT TOBACCO USER [facility] Sep 05, 2012 09:27 AM CURRENT TOBACCO USER [facility] Nov 25, 2011 09:12 AM CURRENT TOBACCO USER [facility] Feb 08, 2011 10:04 AM CURRENT TOBACCO USER [facility] May 01, 2010 10:24 AM CURRENT TOBACCO USER [facility] Jul 03, 2009 08:42 AM CURRENT TOBACCO USER [facility] Encounter Notes: All associated encounter notes This section contains the clinical notes associated to the Encounter. Date/Time Encounter Note(s) Provider Source Jun 04, 2023 10:53 AM H & P NOTE: LOCAL TITLE: H&P HISTORY & PHYSICAL - MEDICINE STANDARD TITLE: H & P NOTE DATE OF NOTE: JUN 04, 2023@10:53 ENTRY DATE: JUN 04, 2023@10:53:34 AUTHOR: NANCY KRISHNAN EXP COSIGNER: URGENCY: STATUS: COMPLETED SUBJECT: GI H & P Gastroenterology Pre-procedure Assessment: 72 Y M foun to have duodenal ROSALIO on EGD , plan for EUS Procedure planned: Endoscopy Pre-Op Diagnosis or Indication for Procedure: Other: Problem list Active problems - Computerized Problem List is the source for the followin. Heavy tobacco smoker (SNOMED CT 315810523128266) 2. Depression (SNOMED CT 42228614) 3. Chronic post-traumatic stress disorder following combat (SNOMED CT 4. Idiopathic chronic neuropathy (SNOMED CT [id number]) - EMG-proven 5. Lumbar spondylosis 6. Prostate Cancer (SCT [id number]) - status post radical retroprostatectomy 2012 complicated by incontinence 7. Macrocytic anemia - S/p heme eval 04/2021 concurs w/ EtOH use as main driver/guide 8. Osteopenia - per 10/2022 DEXA 9. Recurrent falls - Likely driven by of his severe lower extremity neuropathy 10. Alcohol Abuse (SCT 57197624) 11. Gastritis - suspected NSAID-induced 2013 +/- EtOH: remains on PPI 12. COPD - Chronic Obstructive Pulmonary Disease ([facility] [id number]) 13. History of Polyp of Colon ([facility] [id number]) - last colonoscopy 06/21/2013 notable for hyperplastic polyp w/ repeat due June 2023 for screening purposes 14. 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 Insomnia ([facility] [id number]) 16. Vitamin D deficiency 17. Vitamin B12 deficiency (non anemic) 18. Exposure to potentially hazardous substance ([facility] [id number]) - Entered through [facility] [employer] 19. Genital herpes simplex - Uses PRN acyclovir Active Outpatient Medications (including Supplies): Active Outpatient Medications Status ========= 1) ACYCLOVIR 200MG CAP TAKE TWO CAPSULES BY MOUTH THREE ACTIVE TIMES A DAY FOR HSV 2) ATENOLOL 25MG TAB TAKE ONE TABLET BY MOUTH EVERY DAY ACTIVE FOR ANXIETY FOR ANXIETY 3) BRIEF,TRANQUILITY LESLIE OVERNITE #2114 USE BRIEF ACTIVE DIRECTED 4) CARBOXYMETHYLCELLULOSE NA 0.5% OPH SOLN INSTILL 1 ACTIVE DROP IN BOTH EYES FOUR TIMES A DAY NEEDED FOR DRY EYES 5) CHOLECALCIF 25MCG (D3-1,000UNIT) TAB TAKE ONE TABLET ACTIVE BY MOUTH EVERY DAY FOR VITAMIN D 6) CYANOCOBALAMIN 1000MCG TAB TAKE ONE TABLET BY MOUTH ACTIVE EVERY DAY FOR B12 7) DULOXETINE HCL 30MG EC CAP TAKE THREE CAPSULES BY ACTIVE MOUTH EVERY MORNING FOR DEPRESSION 8) EPINEPHRINE (EQV-EPI-PEN) 0.3MG/0.3ML INJECT 1 PEN ACTIVE DIRECTED ONCE NEEDED FOR ALLERGIC REACTION 9) FERROUS GLUCONATE 324MG TAB TAKE ONE TABLET BY MOUTH ACTIVE (S) EVERY OTHER DAY FOR ANEMIA 10) FOLIC ACID 1MG TAB TAKE ONE TABLET BY MOUTH EVERY DAY ACTIVE 11) NALOXONE HCL 4MG/SPRAY SOLN NASAL SPRAY SPRAY 1 DOSE ACTIVE IN ONE NOSTRIL DIRECTED FOR UNRESPONSIVENESS THEN CALL 911 - IF NO CHANGE IN 2-3 MINUTES, GIVE SECOND DOSE IN OPPOSITE NOSTRIL 12) OLANZAPINE 2.5MG TAB TAKE ONE TABLET BY MOUTH AT ACTIVE BEDTIME FOR IRRITABILITY AND SLEEP 13) OLODATEROL/TIOTROP 2.5MCG/ACTUAT 60D INH INHALE 2 ACTIVE PUFFS BY INHALATION EVERY DAY FOR COPD 14) OMEPRAZOLE 20MG EC CAP TAKE TWO CAPSULES BY MOUTH ACTIVE TWICE A DAY ON AN EMPTY STOMACH, AT LEAST 30 MINUTES PRIOR TO A MEAL TO DECREASE STOMACH ACID 15) OMEPRAZOLE 40MG EC CAP TAKE ONE CAPSULE BY MOUTH ACTIVE TWICE A DAY FOR STOMACH ACID 16) ONDANSETRON HCL 4MG TAB TAKE ONE TABLET BY MOUTH ACTIVE EVERY DAY NEEDED FOR NAUSEA 17) SILDENAFIL CITRATE 100MG TAB TAKE ONE TABLET BY MOUTH ACTIVE EVERY DAY NEEDED 1 HOUR BEFORE ANTICIPATED SEXUAL ACTIVITY. FOR ERECTIONS. 18) THIAMINE 100MG TAB TAKE ONE TABLET BY MOUTH EVERY DAY ACTIVE (S) 19) TRAZODONE HCL 150MG TAB TAKE ONE TABLET BY MOUTH AT ACTIVE (S) BEDTIME FOR SLEEP Allergies: BUTORPHANOL (Jul 03, 2009) BEE VENOM (July 13, 2019) Mallampati Score: 2: (Visibility of hard and soft palate, upper portion of tonsils and uvula) Airway: Within normal limits Exam: Heart and lungs within normal limits Lab PT____ INR____ .RETHE: 33.3 (08/20/22) 25.4 (04/01/23) HCT: 32.3 (08/20/22) 28.2 (04/01/23) HGB: 10.6 (08/20/22) 8.9 (04/01/23) IPF: 6.4 (06/06/18) MCH: 33.0 (08/20/22) 29.5 (04/01/23) MCHC: 32.8 (08/20/22) 31.6 (04/01/23) MCV: 100.6 (08/20/22) 93.4 (04/01/23) MPV: 10.4 (08/20/22) 10.3 (04/01/23) PLT: 172 (08/20/22) 189 (04/01/23) RBC: 3.21 (08/20/22) 3.02 (04/01/23) RDW: 14.3 (08/20/22) 15.9 (04/01/23) WBC: 4.78 (08/20/22) 6.26 (04/01/23) Other Lab tests: [place] [employer]esthesi[employer] (ASA) Classification: II SPN - Selected Prog Notes No data available for: LIFE-SUSTAINING TREATMENT Sedation Plan: Monitored Anesthesia care I have reviewed the patient's pre-procedure baseline level of consciousness, current vital signs, time and nature of last oral intake, and any previous adverse experiences with sedation as documented in the [facility] note. The procedure report can be viewed in the Reports tab-->procedures or in [facility]. I will be conducting or supervising the procedure, although a different provider obtained consent. Patient informed and agrees to proceed. I will be conducting or supervising the procedure, although a different provider obtained consent. Patient informed and agrees to proceed. /marli/ NANCY KRISHNAN MD GASTROENTEROLOGY PHYSICIAN Signed: 06/04/2023 10:54 NANCY KRISHNAN [facility]
--- OUTSIDE RECORDS SUMMARY | 2023-08-05 13:57 | XMS_ITS | Encounter Summary ---
Author Name Department of [facility] Organization [facility] of [facility] Address [address] [place] [address] Support Name Relationship Address Phone ANTOINE SKELTON Next of Kin , RADHA [address] [address] [facility] , [place] ANTOINE SKELTON Next of Kin , RADHA [address] [place], CARIE [facility] Contact , [place] Insurance Providers: All historical and current Section [...] AID (WNR) Aug 08, 2013 MEDICAI D [id number] DERICK SKELTON PATIENT MEDICARE (WNR) MEDICARE (M) PART A Sep 07, 2016 PART A [id number] DERICK SKELTON PATIENT Selected Encounter This section includes the information on record at [place] for the Encounter. Date/Time Encounter Type Encounter Description Reason Pro vider Source Jun 03, 2023 09:07 AM Outpatient Encounter GI ENDOSCOPY IHE Encounter Template Text not used by [facility] Plan of Treatment: Future Appointments (+ 6 months) and Future Tests (+/- 45 days) The Plan of Treatment section includes future care activities for the patient from all [place] treatmentfacilities. This section includes future appointments and future orders which are active, pending or scheduled. Future Appointments This section includes appointments that were scheduled to occur 6 months from the date of the Encounter, up to a maximum of 20 appointments. The data comes from all [place] treatment facilities. Appointment Date/Time Appointment Type Appointme nt Facility Name Jun 04, 2023 09:00 AM [facility] [place] [facility] [address] Jun 04, 2023 09:15 AM [facility] July 16, 2023 09:00 AM [facility] Sep 23, 2023 08:15 AM AMBULATORY - NONE [facility] Sep 23, 2023 09:15 AM AMBULATORY - MEDICINE [facility] Active, Pending, and Scheduled Orders This section includes a listing of several types of active, pending, and scheduled orders, including clinic medications orders, diagnostic test orders, procedure orders and consult orders; where the start date of the order is 45 days before the date of the Encounter or 45 days after the date of theEncounter. The data comes from all [facility] facilities. Test Date/Time Test Type Test Details Facility Name Apr 29, 2023 12:00 AM Laboratory - Chemi stry Order BASIC METABOLIC PANEL+MG PLASMA SP ONCE [facility] Apr 29, 2023 12:00 AM Laboratory - Chemi stry Order CBC BLOOD SP [facility] Jun 27, 2023 12:19 PM Consult Order COMMUNITY CARE-CHIROPRACTIC Cons Medical Resident's Choice [facility] July 18, 2023 12:00 AM Laboratory - Chemi stry Order CBC BLOOD SP ONCE [facility] July 18, 2023 12:00 AM Laboratory - Chemi stry Order IRON GROUP SERUM SP [facility] Social History: Smoking Status (Most current) [...] USE WI 30 MIN OF WAKE UP [facility] Tobacco Use History This section includes a history of the smoking, or tobacco-related health factors, that were collected on or before the date of the Encounter. The data comes from the [place] facility where the Encounter took place. Date/Time Smoking Status/Tobacco Use Comment F acility Aug 20, 2022 09:15 AM VA-TOBACCO USE ADVICE [facility] Aug 20, 2022 09:15 AM VA-TOBACCO USE COMMISSIONS ANALYST NO [facility] Aug 20, 2022 09:15 AM VA-TOBACCO USE MED NO [facility] Aug 20, 2022 09:15 AM VA-TOBACCO USE WI 30 MIN OF WAKE UP [facility] Aug 20, 2022 09:15 AM VA-TOBACCO USER EVERY DAY [facility] Sep 12, 2021 09:15 AM VA-TOBACCO USE 30 YEARS OR MORE [facility] Sep 12, 2021 09:15 AM VA-TOBACCO USE ADVICE [facility] Sep 12, 2021 09:15 AM VA-TOBACCO USE COMMISSIONS ANALYST NO [facility] Sep 12, 2021 09:15 AM VA-TOBACCO USE MED NO [facility] Sep 12, 2021 09:15 AM VA-TOBACCO USE WI 30 MIN OF WAKE UP [facility] Sep 12, 2021 09:15 AM VA-TOBACCO USER EVERY DAY [facility] Sep 01, 2020 01:30 PM VA-TOBACCO DOESNT USE WI 30 MIN WAKEUP [facility] Sep 01, 2020 01:30 PM VA-TOBACCO USE 30 YEARS OR MORE [facility] Sep 01, 2020 01:30 PM VA-TOBACCO USE ADVICE [facility] Sep 01, 2020 01:30 PM VA-TOBACCO USE COMMISSIONS ANALYST NO [facility] Sep 01, 2020 01:30 PM VA-TOBACCO USE MED NO [facility] Sep 01, 2020 01:30 PM VA-TOBACCO USER EVERY DAY [facility] Sep 27, 2019 09:35 AM VA-TOBACCO USE 30 YEARS OR MORE [facility] Sep 27, 2019 09:35 AM VA-TOBACCO USE ADVICE [facility] Sep 27, 2019 09:35 AM VA-TOBACCO USE COMMISSIONS ANALYST NO [facility] Sep 27, 2019 09:35 AM VA-TOBACCO USE MED NO [facility] Sep 27, 2019 09:35 AM VA-TOBACCO USE WI 30 MIN OF WAKE UP [facility] Sep 27, 2019 09:35 AM VA-TOBACCO USER EVERY DAY [facility] Mar 04, 2018 01:45 PM VA-TOBACCO USE 30 YEARS OR MORE [facility] Mar 04, 2018 01:45 PM VA-TOBACCO USE ADVICE [facility] Mar 04, 2018 01:45 PM VA-TOBACCO USE COMMISSIONS ANALYST NO [facility] Mar 04, 2018 01:45 PM VA-TOBACCO USE MED NO [facility] Mar 04, 2018 01:45 PM VA-TOBACCO USE WI 30 MIN OF WAKE UP [facility] Mar 04, 2018 01:45 PM VA-TOBACCO USER EVERY DAY [facility] Apr 22, 2017 10:01 AM CURRENT TOBACCO USER [facility] Apr 16, 2016 09:52 AM CURRENT TOBACCO USER [facility] July 26, 2014 09:08 AM CURRENT TOBACCO USER [facility] Dec 31, 2013 10:06 AM CURRENT TOBACCO USER [facility] Sep 05, 2012 09:27 AM CURRENT TOBACCO USER [facility] Nov 25, 2011 09:12 AM CURRENT TOBACCO USER [facility] Feb 08, 2011 10:04 AM CURRENT TOBACCO USER [facility] May 01, 2010 10:24 AM CURRENT TOBACCO USER [facility] Jul 03, 2009 08:42 AM CURRENT TOBACCO USER [facility] Encounter Notes: All associated encounter notes This section contains the clinical notes associated to the Encounter. Date/Time Encounter Note(s) Provider Source Jun 05, 2023 07:39 AM GASTROENTEROLOGY PROCEDURE NOTE: LOCAL TITLE: CP GASTROENTEROLOGY PROCEDURE STANDARD TITLE: GASTROENTEROLOGY PROCEDURE NOTE DATE OF NOTE: JUN 05, 2023@07:39:23 ENTRY DATE: JUN 05, 2023@07:39:23 AUTHOR: CLINICAL,DEVICE PRO EXP COSIGNER: URGENCY: STATUS: COMPLETED PROCEDURE SUMMARY CODE: Machine Resulted DATE/TIME PERFORMED: JUN 04, 2023@09:43:4 DOCUMENT IN [facility] IMAGING SEE FULL REPORT IN VISTA IMAGING SIGNATURE NOT REQUIRED SEE SIGNATURE IN VISTA IMAGING (Provation (EUS Upper)) AUTO-INSTRUMENT DIAGNOSIS Procedure: NOTETYPE Nurse Note Release Status: Released Off-Line Verified Date Verified: Jun 05, 2023@07:39:20 COVID-19 ASSESSMENT User:[email or web address] Has the patient been tested for COVID-19:No Have you experienced any of the following symptoms in the last 14 days:None Temperature (F): Comments: CHECK-IN User:[employer] Procedure:EUS Upper procedure indication:Yes Upper procedure indication:Abnormal imaging Lower procedure indication:N/A Patient identification:Name, ID band on:Yes Care Plan - monitor for procedural or sedation related events and to promote patient comfort and safety:Yes Any questions or patient concerns:No Time of last solid food:7pm yesterday Time of last liquid intake:sip water 0915 Prep taken: Patient Labs:No Barrier to learning:No Can the patient sign their own consents:Yes Preferred Learning Style:Verbal, Hands-on, Written Pre and post procedure teaching given to:Patient Pre and post-procedure teaching completed:Yes Method:Verbal, Pamphlets, Visual Response to teaching - Demonstrates by stating/acknowledging understandi and post-procedure/discharge instruc Patient Mobility:W/C Transportation after procedure:Yes [employer] Crane Operator location:Waiting Room Drivers phone#:[phone] [employer] Locomotive Crane Operator's name / relationship:Kana (friend) Are we allowed to speak with your power screwdriver operator about your medical information post procedure: Anesthesia case:Yes Ordered at pre-call: H \T\ P date:DOS EKG date:06/04/23 Pre-Procedure / Active Medications Anticoagulant use - Patient Denies Use Anticoagulant use: - Patient Denies Use Antiplatelet use: - Patient Denies Use Aspirin use - Patient Denies Use NSAID use: - Patient Denies Use Opioid antagonist use: - Patient Denies Use Steroid use - Patient Denies Use RN reviewed medications with patient. MD to review medications Confirmed 06/04/2023 ALLERGIES Iodine/Contrast Medium Allergy - Patient Denies Allergy - Iodine/Contrast Medium Allergy: - Patient Denies Allergy - Latex Allergy - Patient Denies Allergy - Latex Allergy: - Patient Denies Allergy - Bees - Confirmed 06/04/2023 Butorphanol - Confirmed 06/04/2023 HEALTH HISTORY User:[employer] MEDICAL HISTORY status:N/A Cardiovascular:Yes Cardiovascular diagnoses:Hypertension Comments:AV block Pulmonary:Yes Pulmonary diagnoses:COPD Home O2:No Comments: GI:Yes GI diagnoses:Dysphagia, GERD, Melena, EGJOO s/p botox Family History: Comments: Diabetes:No Renal/Endocrine:No Neuro/Musculoskeletal:No Miscellaneous / Infectious:No Psychiatric:Yes Psychiatric diagnoses:Anxiety, Depression, PTSD Comments: SURGICAL HISTORY Previous surgery:Yes Surgery:Metal/shapnel, Prostatectomy History of problems with anesthesia:No Risk factors for post-sedation delirium:Yes Following risk factors:Age >70 SOCIAL HISTORY Nicotine/Smoking history:Yes Tobacco Type:Smoke Type:Cigarettes Amount:1/2ppd Duration: Alcohol history:Yes Amount/frequency:2-4 beers/day Last used: Recreational drug use:No ALERTS Alert Comments Last Updated By Last Updated On Butorphanol dvorakj 06/04/2023 9:46:58 AM Iodine/Contrast Medium Allergy Patient Denies Allergy Unconfirmed Latex Allergy Patient Denies Allergy Unconfirmed Latex Allergy: Patient Denies Allergy Unconfirmed Iodine/Contrast Medium Allergy: Patient Denies Allergy Unconfirmed Bees stephanyperrykrosario 06/04/2023 9:47:09 AM Metal - Right ankle Ifrah Fernando 06/04/2023 9:48:38 AM CODE STATUS - Full Ifrah Fernando 06/04/2023 9:48:41 AM PATIENT ASSESSMENT - PREPROCEDURE User:antonia Time:06/04/2023 09:48 Level of conciousness:2 Fully awake Emotional Status:Calm, Cooperative Baseline pain:Yes Pain Score:5 Pain Location:back, extremities (neuropathy) Pain medication last taken:tyelenol prn Pain comments: Patients self reported pain during pre-procedure assessment will not be documented in every procedural assessment.: Skin:Warm, Dry Venous access device:No Pre-existing IV:No IV started:Yes IV Site:Left arm IV Type:Butterfly Size:20 gauge IV Solution:Saline Lock IV Rate: Inserted by:Brenda Campo RN PATIENT ASSESSMENT - INTRAPROCEDURE User:antonia Pt condition unchanged from pre-sedation assessment:Yes Dentures, glasses or hearing aid removed and stored:Yes Type:Dentures, Glasses Loose Teeth:No Cardiac Rhythm Monitored:Yes Cardiac Rhythm:Sinus Rhythm, Bradycardia Comments:HR mid 50s TIME OUT All team members must concur verbally to each item on the checklist - Correct patient identification (full name, full Date of or Social Security number) - Correct Procedure (check order) - Correct site, including laterality if applicable - Valid iMED consent for correct procedure - Patient position is confirmed - Pertinent medical images have been confirmed (film or original report) - Correct medical implant(s) are available - Appropriate antibiotic prophylaxis - Appropriate deep vein thrombosis prophylaxis if applicable - Blood availability if applicable TIME OUT - Fire Risk Assessment completed Time out: Post Procedure Debrief Nurse verbally confirms with team: To endoscopist, technical support intern and nurse: DISCHARGE QUESTIONS User:arendk Pain now:No Cardiac Rhythm Monitored:Yes Cardiac Rhythm:Regular, Sinus Rhythm Comments: IV Discontinued:Yes Time IV Discontinued:06/04/2023 1140 Total Amount Infused (mL):100 IV Site Condition:Intact Wristband:Removed from patient and placed in secure shred bin, per policy. Discharge Criteria met:Yes Post-procedure education completed:Yes Patient and/or Family given opportunity to ask questions and questions answered:Yes Patient and/or Family stated understanding of post-procedure instructions:Yes Patient/family/caregiver include signs and sympto activity/diet/medication Discharge instructions/pamphlets given:Yes Topic(s):Endoscopy Follow up (months/years):per next EGD interval Released to:Self with adult when applicable Transportation after procedure:Yes [employer] Crane Operator location:Waiting Room Drivers phone#:[phone] Diesel Locomotive Crane Operator's name / relationship:Kana (friend) Are we allowed to speak with your power screwdriver operator about your medical information post procedure: Comments: Events Reporting Report ADR Hotline #[id number] Should any of the following occur during the procedure, forward a copy of this form to C.I. (OOD).: Adverse event(s):No Rehan Score Time Activity Resp Circulation LOC O2 Sat Entered By Total Score Notes 11:35:12 2 2 2 2 2 arendk 10 11:31:30 2 2 2 2 2 arendk 10 11:12:08 2 2 2 1 2 arendk 9 No Notes Taken Vitals Time BP HR RESP O2 Sat CO2 Entered By 11:35:02 145/65 61 16 98 - arendk 11:31:06 163/72 53 26 95 - arendk 11:20:00 146/67 63 20 94 - arendk 11:11:47 138/65 56 16 98 - arendk 09:59:55 158/67 51 14 95 - dvorakj No Notes Taken PROCEDURE LOG Time Data Entered By 11:41:27 Patient Activities : Getting dressed arendk 11:35:06 Pain now? : No arendk 11:35:06 Level of conciousness : 2 Fully awake or returned to presedation LOC arendk 11:35:04 Level of comfort : Comfortable arendk 11:32:56 Patient Activities : Offers no complaints arendk 11:32:47 Patient Activities : Sitting at side of bed arendk 11:31:13 Pain now? : No arendk 11:31:11 Level of conciousness : 2 Fully awake or returned to presedation LOC arendk 11:31:09 Level of comfort : Comfortable arendk 11:30:29 Level of conciousness : 1 Arousable on calling, presence of protective reflexes arendk 11:30:26 Level of comfort : Comfortable arendk 11:11:57 Pain now? : No arendk 11:11:56 Level of conciousness : 1 Arousable on calling, presence of protective reflexes arendk 11:11:53 Level of comfort : Comfortable arendk 11:11:02 Notes: Report from Kian GALLARDO, Arthur hicksdk 10:00:19 Pain Location : chronic back, extremity pain dvorakj 10:00:08 Pain score : 5 dvorakj 10:00:05 Pain now? : Yes dvorakj 09:59:59 Level of conciousness : 2 Fully awake or returned to presedation LOC dvorakj 09:59:57 Level of comfort : Comfortable dvorakj 09:45:00 See Anesthesia Record : Please see Anesthesia record for Pre, Intra, and Post procedural documentation related to this procedure. leafa Time Tracking Time Event Entered By 11:46:50 Discharged larisa 11:02:11 Recovery start leafa 11:02:10 Scope out leafa 10:55:00 Scope in leafa 10:48:08 Time out leafa 10:48:07 MD in procedure room leafa 10:48:07 Patient in procedure room leafa 10:45:00 MD consenting patient leafa 09:44:38 Preprocedure cintronr 09:44:37 Arrival cintronr Provider Signatures Edmar Lee (leafa) [facility] - 06/04/2023 11:14:55 Nalini Everett (arendk) [facility] - 06/04/2023 11:46:56 Ifrah Fernando (dvorakj) [facility] - 06/04/2023 10:10:42 Mark Moise RN (cintronr) [facility] - 06/04/2023 11:15:12 Administrative Closure: 06/05/2023 by: CLINICAL,DEVICE PROXY SERVICE CLINICAL,DEVICE PROXY SERVICE [facility] Jun 04, 2023 11:13 AM GASTROENTEROLOGY PROCEDURE NOTE: LOCAL TITLE: CP GASTROENTEROLOGY PROCEDURE STANDARD TITLE: GASTROENTEROLOGY PROCEDURE NOTE DATE OF NOTE: JUN 04, 2023@11:13:41 ENTRY DATE: JUN 04, 2023@11:13:41 AUTHOR: CLINICAL,DEVICE PRO EXP COSIGNER: URGENCY: STATUS: COMPLETED PROCEDURE SUMMARY CODE: Machine Resulted DATE/TIME PERFORMED: JUN 04, 2023@09:43:4 DOCUMENT IN VISTA IMAGING SEE FULL REPORT IN VISTA IMAGING SIGNATURE NOT REQUIRED SEE SIGNATURE IN VISTA IMAGING (Provation (EUS Upper)) AUTO-INSTRUMENT DIAGNOSIS Procedure: Unknown GI PROCEDURE Release Status: Released Off-Line Verified Date Verified: Jun 04, 2023@11:13:36 Procedure: Upper EUS Indications: Duodenal mucosal mass/polyp found on endoscopy Medicines: See the Anesthesia note for documentation of the administered medications Complications: No immediate complications. Procedure: After obtaining informed consent, the endoscope was passed under direct vision. Throughout the procedure, the patient's blood pressure, pulse, and oxygen saturations were monitored continuously. The Endoscope was introduced through the mouth, and advanced to the second part of duodenum. The upper EUS was accomplished without difficulty. The patient tolerated the procedure well. Findings: ENDOSCOPIC FINDING: : The Z-line was irregular. This was recently biopsied so repeat biopsies were not performed. The entire examined stomach was normal. A sumucosal lesion with central umbilication measuring 5 mm was seen in the pyloric channel. 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 - Normal stomach. - Normal examined duodenum. - A sumucosal lesion with central umbilication measuring 5 mm was seen in the pyloric channel. 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 - Resume prior diet - Repeat EGD interval as deemed by prior pathology on last EGD Attending Participation: I was present and participated during the entire procedure, including non-nielsen portions. Pooja Caro, 06/04/2023 11:13:23 AM Number of Addenda: 0 Note Initiated On: 06/04/2023 9:43 AM Scope In: 10:55:55 AM Scope Out: 11:02:14 AM [facility] [address] [place] [address] --- Administrative Closure: 06/04/2023 by: CLINICAL,DEVICE PROXY SERVICE CLINICAL,DEVICE PROXY SERVICE [facility]
--- OUTSIDE RECORDS SUMMARY | 2023-08-05 13:58 | XMS_ITS | Encounter Summary ---
Author Name [facility] Organization Department of Veter[facility] Address [address] [place] [address] Support Name Relationship Address Phone ANTOINE SKELTON Next of Kin , RADHA [address] R[place], CARIE Emergency Contact , [place] [phone] ANTOINE SKELTON Next of Kin , RADHA [address] MANTALA, CARIE Emergency Contact , [place] Insurance [...] AID (WNR) Aug 08, 2013 MEDICAI D [id number] [phone] DERICK SKELTON PATIENT MEDICARE (WNR) MEDICARE (M) PART A Sep 07, 2016 PART A [id number] DERICK SKELTON PATIENT Selected Encounter This section includes the information on record at [facility] for the Encounter. Date/Time Encounter Type Encounter Description Reason Provider Source Jun 04, 2023 10:17 AM Outpatient Encounter AMBULATORY MARTHA ELIAS Encounter Template Text not used by [facility] Plan of Treatment: Future Appointments (+ 6 months) and Future Tests (+/- 45 days) The Plan of Treatment section includes future care activities for the patient from all [facility] treatmentfacilities. This section includes future appointments and future orders which are active, pending or scheduled. Future Appointments This section includes appointments that were scheduled to occur 6 months from the date of the Encounter, up to a maximum of 20 appointments. The data comes from all [facility] treatment facilities. Appointment Date/Time Appointment Type Appointme nt Facility Name July 16, 2023 09:00 AM AM[place]ORY [place] [facility] Sep 23, 2023 08:15 AM [place]ORY - [place] [facility] Sep 23, 2023 09:15 AM [facility] [place] [facility] Active, Pending, and Scheduled Orders This section includes a listing of several types of active, pending, and scheduled orders, including clinic medications orders, diagnostic test orders, procedure orders and consult orders; where the start date of the order is 45 days before the date of the Encounter or 45 days after the date of theEncounter. The data comes from all [facility] treatment facilities. Test Date/Time Test Type Test Details Facility Name Apr 29, 2023 12:00 AM Laboratory - Chemi stry Order BASIC METABOLIC PANEL+MG PLASMA SP ONCE [facility] Apr 29, 2023 12:00 AM Laboratory - Chemi stry Order CBC BLOOD SP [facility] Jun 27, 2023 12:19 PM Consult Order COMMUNITY CARE-CHIROPRACTIC Cons Meter Maker's Choice [facility] July 18, 2023 12:00 AM Laboratory - Chemi stry Order CBC BLOOD SP ONCE [facility] July 18, 2023 12:00 AM Laboratory - Chemi stry Order IRON GROUP SERUM SP [facility] Social History: Smoking Status (Most current) and Tobacco Use (All prior to encounter date) This section includes the most current, and the historical, smoking and tobacco- related health factors from the [facility] facility where the Encounter took place. Current Smoking Status This section includes the most current smoking, or tobacco-related health factor, from the [facility] facility where the Encounter took place. Date/Time Current Smoking Status Comment Facil ity Aug 20, 2022 09:15 AM VA-TOBACCO USER EVERY DAY [facility] Tobacco Use History This section includes a history of the smoking, or tobacco-related health factors, that were collected on or before the date of the Encounter. The data comes from the [facility] facility where the Encounter took place. Date/Time Smoking Status/Tobacco Use Comment F acility Aug 20, 2022 09:15 AM VA-TOBACCO USE ADVICE [facility] Aug 20, 2022 09:15 AM VA-TOBACCO USE COMMERCIAL ANALYST NO [facility] Aug 20, 2022 09:15 AM VA-TOBACCO USE MED NO [facility] Aug 20, 2022 09:15 AM VA-TOBACCO USE [place] 30 MIN OF WAKE UP [facility] Aug 20, 2022 09:15 AM VA-TOBACCO USER EVERY DAY [facility] Sep 12, 2021 09:15 AM VA-TOBACCO USE 30 YEARS OR MORE [facility] Sep 12, 2021 09:15 AM VA-TOBACCO USE ADVICE [facility] Sep 12, 2021 09:15 AM VA-TOBACCO USE COMMERCIAL ANALYST NO [facility] Sep 12, 2021 09:15 AM VA-TOBACCO USE MED NO [facility] Sep 12, 2021 09:15 AM VA-TOBACCO USE WI 30 MIN OF WAKE UP [facility] Sep 12, 2021 09:15 AM VA-TOBACCO USER EVERY DAY [facility] Sep 01, 2020 01:30 PM VA-TOBACCO DOESNT USE WI 30 MIN WAKEUP [facility] Sep 01, 2020 01:30 PM VA-TOBACCO USE 30 YEARS OR MORE [facility] Sep 01, 2020 01:30 PM VA-TOBACCO USE ADVICE [facility] Sep 01, 2020 01:30 PM VA-TOBACCO USE COMMERCIAL ANALYST NO [facility] Sep 01, 2020 01:30 PM VA-TOBACCO USE MED NO [facility] Sep 01, 2020 01:30 PM VA-TOBACCO USER EVERY DAY [facility] Sep 27, 2019 09:35 AM VA-TOBACCO USE 30 YEARS OR MORE [facility] Sep 27, 2019 09:35 AM VA-TOBACCO USE ADVICE [facility] Sep 27, 2019 09:35 AM VA-TOBACCO USE COMMERCIAL ANALYST NO [facility] Sep 27, 2019 09:35 AM VA-TOBACCO USE MED NO [facility] Sep 27, 2019 09:35 AM VA-TOBACCO USE [place] 30 MIN OF WAKE UP [facility] Sep 27, 2019 09:35 AM VA-TOBACCO USER EVERY DAY [facility] Mar 04, 2018 01:45 PM VA-TOBACCO USE 30 YEARS OR MORE [facility] Mar 04, 2018 01:45 PM VA-TOBACCO USE ADVICE [facility] Mar 04, 2018 01:45 PM VA-TOBACCO USE COMMERCIAL ANALYST NO [facility] Mar 04, 2018 01:45 PM VA-TOBACCO USE MED NO [facility] Mar 04, 2018 01:45 PM VA-TOBACCO USE WI 30 MIN OF WAKE UP [facility] Mar 04, 2018 01:45 PM VA-TOBACCO USER EVERY DAY [facility] Apr 22, 2017 10:01 AM CURRENT TOBACCO USER [facility] Apr 16, 2016 09:52 AM CURRENT TOBACCO USER [facility] July 26, 2014 09:08 AM CURRENT TOBACCO USER [facility] Dec 31, 2013 10:06 AM CURRENT TOBACCO USER [facility] Sep 05, 2012 09:27 AM CURRENT TOBACCO USER [facility] Nov 25, 2011 09:12 AM CURRENT TOBACCO USER [facility] Feb 08, 2011 10:04 AM CURRENT TOBACCO USER [facility] May 01, 2010 10:24 AM CURRENT TOBACCO USER [facility] Jul 03, 2009 08:42 AM CURRENT TOBACCO USER [facility]
--- OUTSIDE RECORDS SUMMARY | 2023-08-05 13:58 | XMS_ITS | Encounter Summary ---
Author Name [facility] Organization [facility] Address [address] [place] [address] Support Name Relationship Address Phone ANTOINE SKELTON Next of Kin , RADHA [address] [place] Emergency Contact , RADHA ANTOINE SKELTON Next of Kin , RADHA [address] MANTALA, CARIE Emergency Contact , [place] Insurance Providers: All historical and current Section [...] AID (WNR) Aug 08, 2013 MEDICAI D [id number] DERICK SKELTON PATIENT MEDICARE (WNR) MEDICARE (M) PART A Sep 07, 2016 PART A [id number] DERICK SKELTON PATIENT Selected Encounter This section includes the information on record at [place] for the Encounter. Date/Time Encounter Type Encounter Description Reason Pro vider Source Jun 04, 2023 11:53 AM Outpatient Encounter EVENT (HISTORICAL) [facility] Encounter Template Text not used by [facility] Plan of Treatment: Future Appointments (+ 6 months) and Future Tests (+/- 45 days) The Plan of Treatment section includes future care activities for the patient from all [place] treatmentfacilities. This section includes future appointments and future orders which are active, pending or scheduled. Future Appointments This section includes appointments that were scheduled to occur 6 months from the date of the Encounter, up to a maximum of 20 appointments. The data comes from all [place] treatment facilities. Appointment Date/Time Appointment Type Appointme nt Facility Name July 16, 2023 09:00 AM AM[place]ORY [place] [facility] Sep 23, 2023 08:15 AM [place] - [place]ONE [place] [facility] Sep 23, 2023 09:15 AM [facility] [place] [facility] Active, Pending, and Scheduled Orders This section includes a listing of several types of active, pending, and scheduled orders, including clinic medications orders, diagnostic test orders, procedure orders and consult orders; where the start date of the order is 45 days before the date of the Encounter or 45 days after the date of theEncounter. The data comes from all [place] treatment facilities. Test Date/Time Test Type Test Details Facility Name Apr 29, 2023 12:00 AM Laboratory - Chemi stry Order BASIC METABOLIC PANEL+MG PLASMA SP ONCE [facility] Apr 29, 2023 12:00 AM Laboratory - Chemi stry Order CBC BLOOD SP [facility] Jun 27, 2023 12:19 PM Consult Order COMMUNITY CARE-CHIROPRACTIC Cons Cmm Inspector's Choice [facility] July 18, 2023 12:00 AM Laboratory - Chemi stry Order CBC BLOOD SP ONCE [facility] July 18, 2023 12:00 AM Laboratory - Chemi stry Order IRON GROUP SERUM SP [facility] Social History: Smoking Status (Most current) and Tobacco Use (All prior to encounter date) This section includes the most current, and the historical, smoking and tobacco- related health factors from the [place] facility where the Encounter took place. Current Smoking Status This section includes the most current smoking, or tobacco-related health factor, from the [place] facility where the Encounter took place. Date/Time Current Smoking Status Comment Facil ity Aug 20, 2022 09:15 AM VA-TOBACCO USER EVERY DAY [facility] Tobacco Use History This section includes a history of the smoking, or tobacco-related health factors, that were collected on or before the date of the Encounter. The data comes from the [place] facility where the Encounter took place. 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 [facility] Aug 20, 2022 09:15 AM VA-TOBACCO USE MED NO [facility] Aug 20, 2022 09:15 AM VA-TOBACCO USE WI 30 MIN OF WAKE UP [facility] Aug 20, 2022 09:15 AM VA-TOBACCO USER EVERY DAY [facility] Sep 12, 2021 09:15 AM VA-TOBACCO USE 30 YEARS OR MORE [facility] Sep 12, 2021 09:15 AM VA-TOBACCO USE ADVICE [facility] Sep 12, 2021 09:15 AM VA-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 USE 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 NO [facility] Sep 12, 2021 09:15 AM VA-TOBACCO USE MED NO [facility] Sep 12, 2021 09:15 AM VA-TOBACCO USE WI 30 MIN OF WAKE UP [facility] Sep 12, 2021 09:15 AM VA-TOBACCO USER EVERY DAY [facility] Sep 01, 2020 01:30 PM VA-TOBACCO DOESNT USE WI 30 MIN WAKEUP [facility] Sep 01, 2020 01:30 PM VA-TOBACCO USE 30 YEARS OR MORE [facility] Sep 01, 2020 01:30 PM VA-TOBACCO USE ADVICE [facility] Sep 01, 2020 01:30 PM VA-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 USE 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 NO [facility] Sep 01, 2020 01:30 PM VA-TOBACCO USE MED NO [facility] Sep 01, 2020 01:30 PM VA-TOBACCO USER EVERY DAY [facility] Sep 27, 2019 09:35 AM VA-TOBACCO USE 30 YEARS OR MORE [facility] Sep 27, 2019 09:35 AM VA-TOBACCO USE ADVICE [facility] Sep 27, 2019 09:35 AM VA-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 USE 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 NO [facility] Sep 27, 2019 09:35 AM VA-TOBACCO USE MED NO [facility] Sep 27, 2019 09:35 AM VA-TOBACCO USE WI 30 MIN OF WAKE UP [facility] Sep 27, 2019 09:35 AM VA-TOBACCO USER EVERY DAY [facility] Mar 04, 2018 01:45 PM VA-TOBACCO USE 30 YEARS OR MORE [facility] Mar 04, 2018 01:45 PM VA-TOBACCO USE ADVICE [facility] Mar 04, 2018 01:45 PM VA-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 USE 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 NO [facility] Mar 04, 2018 01:45 PM VA-TOBACCO USE MED NO [facility] Mar 04, 2018 01:45 PM VA-TOBACCO USE WI 30 MIN OF WAKE UP [facility] Mar 04, 2018 01:45 PM VA-TOBACCO USER EVERY DAY [facility] Apr 22, 2017 10:01 AM CURRENT TOBACCO USER [facility] Apr 16, 2016 09:52 AM CURRENT TOBACCO USER [facility] July 26, 2014 09:08 AM CURRENT TOBACCO USER [facility] Dec 31, 2013 10:06 AM CURRENT TOBACCO USER [facility] Sep 05, 2012 09:27 AM CURRENT TOBACCO USER [facility] Nov 25, 2011 09:12 AM CURRENT TOBACCO USER [facility] Feb 08, 2011 10:04 AM CURRENT TOBACCO USER [facility] May 01, 2010 10:24 AM CURRENT TOBACCO USER [facility] Jul 03, 2009 08:42 AM CURRENT TOBACCO USER [facility] Encounter Notes: All associated encounter notes This section contains the clinical notes associated to the Encounter. Date/Time Encounter Note(s) Provider Source Jun 04, 2023 11:08 AM ANESTHESIOLOGY OPE RATIVE NOTE: LOCAL TITLE: [facility] ANESTHESIA RECORD STANDARD TITLE: ANESTHESIOLOGY OPERATIVE NOTE DATE OF NOTE: JUN 04, 2023@11:08 ENTRY DATE: JUN 04, 2023@11:53:37 AUTHOR: MARTHA ELIAS EXP COSIGNER: URGENCY: STATUS: COMPLETED See [facility] for Full Anesthesia Record /marli/ MARTHA ELIAS MD ANESTHESIOLOGIST Signed: 06/04/2023 11:53 MARTHA ELIAS [facility]
--- OUTSIDE RECORDS SUMMARY | 2023-08-05 13:59 | XMS_ITS | Encounter Summary ---
Author Name Department of [facility] Organization Department of [facility] Address [address] [place] [address] Support Name Relationship Address Phone ANTOINE SKELTON Next of Kin , RADHA [address] CARIE CHAVEZ Emergency Contact , [place] ANTOINE SKELTON Next of Kin , RADHA [address] CARIE CHAVEZ Emergency Contact , [place] Insurance Providers: All historical and current Section [...] AID (WNR) Aug 08, 2013 MEDICAI D [id number] DERICK SKELTON PATIENT MEDICARE (WNR) MEDICARE (M) PART A Sep 07, 2016 PART A [id number] DERICK SKELTON PATIENT Selected Encounter This section includes the information on record at [place] for the Encounter. Date/Time Encounter Type Encounter Description Reason Provider Source Jun 04, 2023 01:29 PM OFF/OP EST MAY X REQ PHY/QHP NON-OR ANESTHESIA PROCEDURES ICD-10-CM R93.3 Abnormal findings on dx imaging of prt digestive tract MARTHA ELIAS Encounter Template Text not used by [place] Assessments - Encounter Diagnoses This section includes the primary and secondary diagnoses documented for the Encounter. Date/Time Primary/Secondary Diagnosis Diagnosis Name Provider Source Jun 04, 2023 01:30 PM PRIMARY Abnormal findings on dx imaging of prt digestive tract MELQUIADES FROST [facility] Plan of Treatment: Future Appointments (+ 6 months) and Future Tests (+/- 45 days) The Plan of Treatment section includes future care activities for the patient from [facility] This section includes future appointments and future orders which are active, pending or scheduled. Future Appointments This section includes appointments that were scheduled to occur 6 months from the date of the Encounter, up to a maximum of 20 appointments. The data comes from all [facility]. Appointment Date/Time Appointment Type Appointme nt Facility Name July 16, 2023 09:00 AM AM[place]UL[place]ORY [place] [facility] Sep 23, 2023 08:15 AM [place] - [place] [facility] Sep 23, 2023 09:15 AM [facility] [place] [facility] Active, Pending, and Scheduled Orders This section includes a listing of several types of active, pending, and scheduled orders, including clinic medications orders, diagnostic test orders, procedure orders and consult orders; where the start date of the order is 45 days before the date of the Encounter or 45 days after the date of theEncounter. The data comes from all [facility]. Test Date/Time Test Type Test Details Facility Name Apr 29, 2023 12:00 AM Laboratory - Chemi stry Order CBC BLOOD SP [facility] Apr 29, 2023 12:00 AM Laboratory - Chemi stry Order BASIC METABOLIC PANEL+MG PLASMA SP ONCE [facility] Jun 27, 2023 12:19 PM Consult Order COMMUNITY CARE-CHIROPRACTIC Cons Acid Conditioner's Choice [facility] July 18, 2023 12:00 AM Laboratory - Chemi stry Order CBC BLOOD SP ONCE [facility] July 18, 2023 12:00 AM Laboratory - Chemi stry Order IRON GROUP SERUM SP [facility] Social History: Smoking Status (Most current) and Tobacco Use (All prior to encounter date) This section includes the most current, and the historical, smoking and tobacco- related health factors from the [place] facility where the Encounter took place. Current Smoking Status This section includes the most current smoking, or tobacco-related health factor, from the [place] facility where the Encounter took place. Date/Time Current Smoking Status Comment Facil ity Aug 20, 2022 09:15 AM VA-TOBACCO USER EVERY DAY [facility] Tobacco Use History This section includes a history of the smoking, or tobacco-related health factors, that were collected on or before the date of the Encounter. The data comes from the [place] facility where the Encounter took place. 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 [facility] Aug 20, 2022 09:15 AM VA-TOBACCO USE MED NO [facility] Aug 20, 2022 09:15 AM VA-TOBACCO USE WI 30 MIN OF WAKE UP [facility] Aug 20, 2022 09:15 AM VA-TOBACCO USER EVERY DAY [facility] Sep 12, 2021 09:15 AM VA-TOBACCO USE 30 YEARS OR MORE [facility] Sep 12, 2021 09:15 AM VA-TOBACCO USE ADVICE [facility] Sep 12, 2021 09:15 AM VA-TOBACCO USE STORAGE MANAGEMENT CONSULTANT NO [facility] Sep 12, 2021 09:15 AM VA-TOBACCO USE MED NO [facility] Sep 12, 2021 09:15 AM VA-TOBACCO USE [place] 30 MIN OF WAKE UP [facility] Sep 12, 2021 09:15 AM VA-TOBACCO USER EVERY DAY [facility] Sep 01, 2020 01:30 PM VA-TOBACCO DOESNT USE WI 30 MIN WAKEUP [facility] Sep 01, 2020 01:30 PM VA-TOBACCO USE 30 YEARS OR MORE [facility] Sep 01, 2020 01:30 PM VA-TOBACCO USE ADVICE [facility] Sep 01, 2020 01:30 PM VA-TOBACCO USE STORAGE MANAGEMENT CONSULTANT NO [facility] Sep 01, 2020 01:30 PM VA-TOBACCO USE MED NO [facility] Sep 01, 2020 01:30 PM VA-TOBACCO USER EVERY DAY [facility] Sep 27, 2019 09:35 AM VA-TOBACCO USE 30 YEARS OR MORE [facility] Sep 27, 2019 09:35 AM VA-TOBACCO USE ADVICE [facility] Sep 27, 2019 09:35 AM VA-TOBACCO USE STORAGE MANAGEMENT CONSULTANT NO [facility] Sep 27, 2019 09:35 AM VA-TOBACCO USE MED NO [facility] Sep 27, 2019 09:35 AM VA-TOBACCO USE WI 30 MIN OF WAKE UP [facility] Sep 27, 2019 09:35 AM VA-TOBACCO USER EVERY DAY [facility] Mar 04, 2018 01:45 PM VA-TOBACCO USE 30 YEARS OR MORE [facility] Mar 04, 2018 01:45 PM VA-TOBACCO USE ADVICE [facility] Mar 04, 2018 01:45 PM VA-TOBACCO USE STORAGE MANAGEMENT CONSULTANT NO [facility] Mar 04, 2018 01:45 PM VA-TOBACCO USE MED NO [facility] Mar 04, 2018 01:45 PM VA-TOBACCO USE WI 30 MIN OF WAKE UP [facility] Mar 04, 2018 01:45 PM VA-TOBACCO USER EVERY DAY [facility] Apr 22, 2017 10:01 AM CURRENT TOBACCO USER [facility] Apr 16, 2016 09:52 AM CURRENT TOBACCO USER [facility] July 26, 2014 09:08 AM CURRENT TOBACCO USER [facility] Dec 31, 2013 10:06 AM CURRENT TOBACCO USER [facility] Sep 05, 2012 09:27 AM CURRENT TOBACCO USER [facility] Nov 25, 2011 09:12 AM CURRENT TOBACCO USER [facility] Feb 08, 2011 10:04 AM CURRENT TOBACCO USER [facility] May 01, 2010 10:24 AM CURRENT TOBACCO USER [facility] Jul 03, 2009 08:42 AM CURRENT TOBACCO USER [facility] Encounter Notes: All associated encounter notes This section contains the clinical notes associated to the Encounter. Date/Time Encounter Note(s) Provider Source Jun 04, 2023 01:30 PM ANESTHESIOLOGY NOT E: LOCAL TITLE: ANESTHESIA NON OR PROCEDURE NOTE STANDARD TITLE: ANESTHESIOLOGY NOTE DATE OF NOTE: JUN 04, 2023@13:30 ENTRY DATE: JUN 04, 2023@13:30:46 AUTHOR: MELQUIADES FROST EXP COSIGNER: URGENCY: STATUS: COMPLETED Prin[place] Procedure: eus Location of Procedure: gi lab Date: June 04, 2023 Anesthesia start time: 1048 Anesthesia end time: 1108 Principal line service technician: melquiades frost Anesthesiologist: Student: No Anesthesia technique: Monitored Anesthesia Care /es/ melquiades frostmarket basket maker market basket maker,anesthesia Signed: 06/04/2023 13:31 MELQUIADES FROST [facility]
--- OUTSIDE RECORDS SUMMARY | 2023-08-05 13:59 | XMS_ITS | Encounter Summary ---
Author Name Department of [facility] Organization Department of [facility] Address [address] [place] [address] Support Name Relationship Address Phone ANTOINE SKELTON Next of Kin , RADHA [address] [address] [facility] , [place] [phone] ANTOINE SKELTON Next of Kin , RADHA [address] [place], CARIE Emergency Contact , [place] [phone] Insurance Providers: All historical and current Section [...] AID (WNR) Aug 08, 2013 MEDICAI D [id number] [phone] DERICK SKELTON PATIENT MEDICARE (WNR) MEDICARE (M) PART A Sep 07, 2016 PART A [id number] [phone] DERICK SKELTON PATIENT Selected Encounter This section includes the information on record at [place] for the Encounter. Date/Time Encounter Type Encounter Description Reason Pro vider Source Jun 04, 2023 12:00 AM Outpatient Encounter EVENT (HISTORICAL) IHE Encounter Template Text not used by [place] Plan of Treatment: Future Appointments (+ 6 months) and Future Tests (+/- 45 days) The Plan of Treatment section includes future care activities for the patient from all [place] treatmentfacilities. This section includes future appointments and future orders which are active, pending or scheduled. Future Appointments This section includes appointments that were scheduled to occur 6 months from the date of the Encounter, up to a maximum of 20 appointments. The data comes from all [place] treatment facilities. Appointment Date/Time Appointment Type Appointme nt Facility Name July 16, 2023 09:00 AM AMBULATORY [place] [facility] Sep 23, 2023 08:15 AM AM[place]ORY [place]ONE [place] [facility] Sep 23, 2023 09:15 AM [facility] [place] [facility] Active, Pending, and Scheduled Orders This section includes a listing of several types of active, pending, and scheduled orders, including clinic medications orders, diagnostic test orders, procedure orders and consult orders; where the start date of the order is 45 days before the date of the Encounter or 45 days after the date of theEncounter. The data comes from all [place] treatment facilities. Test Date/Time Test Type Test Details Facility Name Apr 29, 2023 12:00 AM Laboratory - Chemi stry Order BASIC METABOLIC PANEL+MG PLASMA SP ONCE [facility] Apr 29, 2023 12:00 AM Laboratory - Chemi stry Order CBC BLOOD SP [facility] Jun 27, 2023 12:19 PM Consult Order COMMUNITY CARE-CHIROPRACTIC Cons Inside Trucker's Choice [facility] July 18, 2023 12:00 AM Laboratory - Chemi stry Order CBC BLOOD SP ONCE [facility] July 18, 2023 12:00 AM Laboratory - Chemi stry Order IRON GROUP SERUM SP [facility] Social History: Smoking Status (Most current) [...] 2022 09:15 AM VA-TOBACCO USER EVERY DAY [facility] Tobacco Use History This section includes a history of the smoking, or tobacco-related health factors, that were collected on or before the date of the Encounter. The data comes from the [place] facility where the Encounter took place. 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 [facility] Sep 12, 2021 09:15 AM VA-TOBACCO USE MED NO [facility] Sep 12, 2021 09:15 AM VA-TOBACCO USE [place] 30 MIN OF WAKE UP [facility] Sep 12, 2021 09:15 AM VA-TOBACCO USER EVERY DAY [facility] Sep 01, 2020 01:30 PM VA-TOBACCO DOESNT USE WI 30 MIN WAKEUP [facility] Sep 01, 2020 01:30 PM VA-TOBACCO USE 30 YEARS OR MORE [facility] Sep 01, 2020 01:30 PM VA-TOBACCO USE ADVICE [facility] Sep 01, 2020 01:30 PM VA-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 USE 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 [facility] Sep 01, 2020 01:30 PM VA-TOBACCO USE MED NO [facility] Sep 01, 2020 01:30 PM VA-TOBACCO USER EVERY DAY [facility] Sep 27, 2019 09:35 AM VA-TOBACCO USE 30 YEARS OR MORE [facility] Sep 27, 2019 09:35 AM VA-TOBACCO USE ADVICE [facility] Sep 27, 2019 09:35 AM VA-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 USE 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 [facility] Sep 27, 2019 09:35 AM VA-TOBACCO USE MED NO [facility] Sep 27, 2019 09:35 AM VA-TOBACCO USE [place] 30 MIN OF WAKE UP [facility] Sep 27, 2019 09:35 AM VA-TOBACCO USER EVERY DAY [facility] Mar 04, 2018 01:45 PM VA-TOBACCO USE 30 YEARS OR MORE [facility] Mar 04, 2018 01:45 PM VA-TOBACCO USE ADVICE [facility] Mar 04, 2018 01:45 PM VA-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 USE 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 [facility] Mar 04, 2018 01:45 PM VA-TOBACCO USE MED NO [facility] Mar 04, 2018 01:45 PM VA-TOBACCO USE [place] 30 MIN OF WAKE UP [facility] Mar 04, 2018 01:45 PM VA-TOBACCO USER EVERY DAY [facility] Apr 22, 2017 10:01 AM CURRENT TOBACCO USER [facility] Apr 16, 2016 09:52 AM CURRENT TOBACCO USER [facility] July 26, 2014 09:08 AM CURRENT TOBACCO USER [facility] Dec 31, 2013 10:06 AM CURRENT TOBACCO USER [facility] Sep 05, 2012 09:27 AM CURRENT TOBACCO USER [facility] Nov 25, 2011 09:12 AM CURRENT TOBACCO USER [facility] Feb 08, 2011 10:04 AM CURRENT TOBACCO USER [facility] May 01, 2010 10:24 AM CURRENT TOBACCO USER [facility] Jul 03, 2009 08:42 AM CURRENT TOBACCO USER [facility]
--- OUTSIDE RECORDS SUMMARY | 2023-08-05 13:59 | XMS_ITS | Encounter Summary ---
Author Name [facility] Organization [facility] Address [address] [place] [address] Support Name Relationship Address Phone ANTOINE SKELTON Next of Kin , RADHA [address] [address] [place] Emergency Contact , [place] ANTOINE SKELTON Next of Kin , RADHA [address] [place], CARIE Emergency Contact , [place] [phone] Insurance Providers: All historical and current Section [...] AID (WNR) Aug 08, 2013 MEDICAI D [id number] [phone] DERICK SKELTON PATIENT MEDICARE (WNR) MEDICARE (M) PART A Sep 07, 2016 PART A [id number] DERICK SKELTON PATIENT Selected Encounter This section includes the [place] on [place] at [place] for the Encounter. Date/Time Encounter Type Encounter Description Reason Pro vider Source Jun 05, 2023 03:12 PM Outpatient Encounter EVENT (HISTORICAL) IHE Encounter Template Text not used by [place] Plan of Treatment: Future Appointments (+ 6 months) and Future Tests (+/- 45 days) The Plan of Treatment section includes future care activities for the patient from all [place] treatmentfacilities. This section includes future appointments and future orders which are active, pending or scheduled. Future Appointments This section includes appointments that were scheduled to occur 6 months from the date of the Encounter, up to a maximum of 20 appointments. The data comes from all [place] treatment facilities. Appointment Date/Time Appointment Type Appointme nt Facility Name July 16, 2023 09:00 AM AM[place]ULATORY [place] [facility] Sep 23, 2023 08:15 AM AM[place]ORY - [place]ONE [place] [facility] Sep 23, 2023 09:15 AM [facility] [place] [facility] Active, Pending, and Scheduled Orders This section includes a listing of several types of active, pending, and scheduled orders, including clinic medications orders, diagnostic test orders, procedure orders and consult orders; where the start date of the order is 45 days before the date of the Encounter or 45 days after the date of theEncounter. The data comes from all [place] treatment facilities. Test Date/Time Test Type Test Details Facility Name Apr 29, 2023 12:00 AM Laboratory - Chemi stry Order BASIC METABOLIC PANEL+MG PLASMA SP ONCE [facility] Apr 29, 2023 12:00 AM Laboratory - Chemi stry Order CBC BLOOD SP [facility] Jun 27, 2023 12:19 PM Consult Order COMMUNITY CARE-CHIROPRACTIC Cons Channel Manager's Choice [facility] July 18, 2023 12:00 AM Laboratory - Chemi stry Order CBC BLOOD SP ONCE [facility] July 18, 2023 12:00 AM Laboratory - Chemi stry Order IRON GROUP SERUM SP [facility] Social History: Smoking Status (Most current) and Tobacco Use (All prior to encounter date) This section includes the most current, and the historical, smoking and tobacco- related health factors from the [place] facility where the Encounter took place. Current Smoking Status This section includes the most current smoking, or tobacco-related health factor, from the [place] facility where the Encounter took place. Date/Time Current Smoking Status Comment Facil ity Aug 20, 2022 09:15 AM VA-TOBACCO USER EVERY DAY [facility] Tobacco Use History This section includes a history of the smoking, or tobacco-related health factors, that were collected on or before the date of the Encounter. The data comes from the [place] facility where the Encounter took place. Date/Time Smoking Status/Tobacco Use Comment F acility Aug 20, 2022 09:15 AM VA-TOBACCO USE ADVICE [facility] Aug 20, 2022 09:15 AM VA-TOBACCO USE PLANNING ADVISOR NO [facility] Aug 20, 2022 09:15 AM VA-TOBACCO USE MED NO [facility] Aug 20, 2022 09:15 AM VA-TOBACCO USE [place] 30 MIN OF WAKE UP [facility] Aug 20, 2022 09:15 AM VA-TOBACCO USER EVERY DAY [facility] Sep 12, 2021 09:15 AM VA-TOBACCO USE 30 YEARS OR MORE [facility] Sep 12, 2021 09:15 AM VA-TOBACCO USE ADVICE [facility] Sep 12, 2021 09:15 AM VA-TOBACCO USE PLANNING ADVISOR NO [facility] Sep 12, 2021 09:15 AM VA-TOBACCO USE MED NO [facility] Sep 12, 2021 09:15 AM VA-TOBACCO USE [place] 30 MIN OF WAKE UP [facility] Sep 12, 2021 09:15 AM VA-TOBACCO USER EVERY DAY [facility] Sep 01, 2020 01:30 PM VA-TOBACCO DOESNT USE WI 30 MIN WAKEUP [facility] Sep 01, 2020 01:30 PM VA-TOBACCO USE 30 YEARS OR MORE [facility] Sep 01, 2020 01:30 PM VA-TOBACCO USE ADVICE [facility] Sep 01, 2020 01:30 PM VA-TOBACCO USE PLANNING ADVISOR NO [facility] Sep 01, 2020 01:30 PM VA-TOBACCO USE MED NO [facility] Sep 01, 2020 01:30 PM VA-TOBACCO USER EVERY DAY [facility] Sep 27, 2019 09:35 AM VA-TOBACCO USE 30 YEARS OR MORE [facility] Sep 27, 2019 09:35 AM VA-TOBACCO USE ADVICE [facility] Sep 27, 2019 09:35 AM VA-TOBACCO USE PLANNING ADVISOR NO [facility] Sep 27, 2019 09:35 AM VA-TOBACCO USE MED NO [facility] Sep 27, 2019 09:35 AM VA-TOBACCO USE [place] 30 MIN OF WAKE UP [facility] Sep 27, 2019 09:35 AM VA-TOBACCO USER EVERY DAY [facility] Mar 04, 2018 01:45 PM VA-TOBACCO USE 30 YEARS OR MORE [facility] Mar 04, 2018 01:45 PM VA-TOBACCO USE ADVICE [facility] Mar 04, 2018 01:45 PM VA-TOBACCO USE PLANNING ADVISOR NO [facility] Mar 04, 2018 01:45 PM VA-TOBACCO USE MED NO [facility] Mar 04, 2018 01:45 PM VA-TOBACCO USE WI 30 MIN OF WAKE UP [facility] Mar 04, 2018 01:45 PM VA-TOBACCO USER EVERY DAY [facility] Apr 22, 2017 10:01 AM CURRENT TOBACCO USER [facility] Apr 16, 2016 09:52 AM CURRENT TOBACCO USER [facility] July 26, 2014 09:08 AM CURRENT TOBACCO USER [facility] Dec 31, 2013 10:06 AM CURRENT TOBACCO USER [facility] Sep 05, 2012 09:27 AM CURRENT TOBACCO USER [facility] Nov 25, 2011 09:12 AM CURRENT TOBACCO USER [facility] Feb 08, 2011 10:04 AM CURRENT TOBACCO USER [facility] May 01, 2010 10:24 AM CURRENT TOBACCO USER [facility] Jul 03, 2009 08:42 AM CURRENT TOBACCO USER [facility]
[2023-08-05] MEDS: ONDANSETRON 2 MG/ML inj 4 MG IVP (14:00)
--- OUTSIDE RECORDS SUMMARY | 2023-08-05 14:00 | XMS_ITS | Encounter Summary ---
Author Name [facility] Organization [facility] of [facility] Address [address] [place] [address] Support Name Relationship Address Phone ANTOINE SKELTON Next of Kin , RADHA [address] CARIE CHAVEZ Emergency Contact , [place] ANTOINE SKELTON Next of Kin , RADHA [address] CARIE CHAVEZ Emergency Contact , [place] Insurance Providers: All historical and current Section [...] AID (WNR) Aug 08, 2013 MEDICAI D [id number] DERICK SKELTON PATIENT MEDICARE (WNR) MEDICARE (M) PART A Sep 07, 2016 PART A [id number] DERICK SKELTON PATIENT Selected Encounter This section includes the information on record at [place] for the Encounter. Date/Time Encounter Type Encounter Description Reason Provider Source Jun 12, 2023 02:09 PM QNHP OL DIG ASSMT&MGMT 5-10 CLINICAL PHARMACY ICD-10-CM F33.1 Major depressive disorder, recurrent, moderate CHAPO,ANDR A A E Encounter Template Text not used by [place] Assessments - Encounter Diagnoses This section includes the primary and secondary diagnoses documented for the Encounter. Date/Time Primary/Secondary Diagnosis Diagnosis Name Provider Source Jun 12, 2023 02:18 PM PRIMARY Major depressive disorder, recurrent, moderate CHAPO,ANDR A A [facility] Jun 12, 2023 02:18 PM SECONDARY Post-traumatic stress disorder, chronic CHAPO,ANDR A A [facility] Plan of Treatment: Future Appointments (+ 6 months) and Future Tests (+/- 45 days) The Plan of Treatment section includes future care activities for the [facility] [place] [facility] This section includes future appointments and future orders which are active, pending or scheduled. Future Appointments This section includes appointments that were scheduled to occur 6 months from the date of the Encounter, up to a maximum of 20 appointments. The data comes from all [facility] facilities. Appointment Date/Time Appointment Type Appointme nt Facility Name July 16, 2023 09:00 AM [facility] Sep 23, 2023 08:15 AM [place] [facility] Sep 23, 2023 09:15 AM [facility] - [place] [facility] Active, Pending, and Scheduled Orders This section includes a listing of several types of active, pending, and scheduled orders, including clinic medications orders, diagnostic test orders, procedure orders and consult orders; where the start date of the order is 45 days before the date of the Encounter or 45 days after the date of theEncounter. The data comes from all [facility]. Test Date/Time Test Type Test Details Facility Name Apr 29, 2023 12:00 AM Laboratory - Chemi stry Order CBC BLOOD SP [facility] Apr 29, 2023 12:00 AM Laboratory - Chemi stry Order BASIC METABOLIC PANEL+MG PLASMA SP ONCE [facility] Jun 27, 2023 12:19 PM Consult Order COMMUNITY CARE-CHIROPRACTIC Cons Clerk Cashier's Choice [facility] July 18, 2023 12:00 AM Laboratory - Chemi stry Order CBC BLOOD SP ONCE [facility] July 18, 2023 12:00 AM Laboratory - Chemi stry Order IRON GROUP SERUM SP [facility] Social History: Smoking Status (Most current) and Tobacco Use (All prior to encounter date) This section includes the most current, and the historical, smoking and tobacco- related health factors from the [place] facility where the Encounter took place. Current Smoking Status This section includes the most current smoking, or tobacco-related health factor, from the [place] facility where the Encounter took place. Date/Time Current Smoking Status Comment Facil ity Aug 20, 2022 09:15 AM VA-TOBACCO USER EVERY DAY [facility] Tobacco Use History This section includes a history of the smoking, or tobacco-related health factors, that were collected on or before the date of the Encounter. The data comes from the [place] facility where the Encounter took place. Date/Time Smoking Status/Tobacco Use Comment F acility Aug 20, 2022 09:15 AM VA-TOBACCO USE ADVICE [facility] Aug 20, 2022 09:15 AM VA-TOBACCO USE TRAIN MASTER NO [facility] Aug 20, 2022 09:15 AM VA-TOBACCO USE MED NO [facility] Aug 20, 2022 09:15 AM VA-TOBACCO USE [place] 30 MIN OF WAKE UP [facility] Aug 20, 2022 09:15 AM VA-TOBACCO USER EVERY DAY [facility] Sep 12, 2021 09:15 AM VA-TOBACCO USE 30 YEARS OR MORE [facility] Sep 12, 2021 09:15 AM VA-TOBACCO USE ADVICE [facility] Sep 12, 2021 09:15 AM VA-TOBACCO USE TRAIN MASTER NO [facility] Sep 12, 2021 09:15 AM VA-TOBACCO USE MED NO [facility] Sep 12, 2021 09:15 AM VA-TOBACCO USE WI 30 MIN OF WAKE UP [facility] Sep 12, 2021 09:15 AM VA-TOBACCO USER EVERY DAY [facility] Sep 01, 2020 01:30 PM VA-TOBACCO DOESNT USE WI 30 MIN WAKEUP [facility] Sep 01, 2020 01:30 PM VA-TOBACCO USE 30 YEARS OR MORE [facility] Sep 01, 2020 01:30 PM VA-TOBACCO USE ADVICE [facility] Sep 01, 2020 01:30 PM VA-TOBACCO USE TRAIN MASTER NO [facility] Sep 01, 2020 01:30 PM VA-TOBACCO USE MED NO [facility] Sep 01, 2020 01:30 PM VA-TOBACCO USER EVERY DAY [facility] Sep 27, 2019 09:35 AM VA-TOBACCO USE 30 YEARS OR MORE [facility] Sep 27, 2019 09:35 AM VA-TOBACCO USE ADVICE [facility] Sep 27, 2019 09:35 AM VA-TOBACCO USE TRAIN MASTER NO [facility] Sep 27, 2019 09:35 AM VA-TOBACCO USE MED NO [facility] Sep 27, 2019 09:35 AM VA-TOBACCO USE WI 30 MIN OF WAKE UP [facility] Sep 27, 2019 09:35 AM VA-TOBACCO USER EVERY DAY [facility] Mar 04, 2018 01:45 PM VA-TOBACCO USE 30 YEARS OR MORE [facility] Mar 04, 2018 01:45 PM VA-TOBACCO USE ADVICE [facility] Mar 04, 2018 01:45 PM VA-TOBACCO USE TRAIN MASTER NO [facility] Mar 04, 2018 01:45 PM VA-TOBACCO USE MED NO [facility] Mar 04, 2018 01:45 PM VA-TOBACCO USE WI 30 MIN OF WAKE UP [facility] Mar 04, 2018 01:45 PM VA-TOBACCO USER EVERY DAY [facility] Apr 22, 2017 10:01 AM CURRENT TOBACCO USER [facility] Apr 16, 2016 09:52 AM CURRENT TOBACCO USER [facility] July 26, 2014 09:08 AM CURRENT TOBACCO USER [facility] Dec 31, 2013 10:06 AM CURRENT TOBACCO USER [facility] Sep 05, 2012 09:27 AM CURRENT TOBACCO USER [facility] Nov 25, 2011 09:12 AM CURRENT TOBACCO USER [facility] Feb 08, 2011 10:04 AM CURRENT TOBACCO USER [facility] May 01, 2010 10:24 AM CURRENT TOBACCO USER [facility] Jul 03, 2009 08:42 AM CURRENT TOBACCO USER [facility] Encounter Notes: All associated encounter notes This section contains the clinical notes associated to the Encounter. Date/Time Encounter Note(s) Provider Source Jun 13, 2023 04:15 PM ADDENDUM: LOCAL TITLE: Addendum STANDARD TITLE: ADDENDUM DATE OF NOTE: JUN 13, 2023@16:15:15 ENTRY DATE: JUN 13, 2023@16:15:15 AUTHOR: HUSAM MAYNARD COSIGNER: URGENCY: STATUS: COMPLETED Will request RN schedule f2f follow up for AIMS and atypicals panel and eval. /marli/ Husam Maynard M.D., Ph.D. STAFF PSYCHIATRIST Signed: 06/13/2023 16:15 Receipt Acknowledged By: 06/16/2023 08:22 /marli/ OCTAVIANO HEWITT RN REGISTERED NURSE --- Original Document --- 06/12/23 PHARMACOTHERAPY-CLINICAL PHARMACY NOTE: ========= MENTAL HEALTH PHARMACY SERVICE ========= Date of service: JUN 12, 2023 [place] was identified as being prescribed an antipsychotic. Chart was reviewed to assess for monitoring considerations. is currently prescribed olanzapine. Active problems - Computerized Problem List is the source for the followin. Heavy tobacco smoker (SNOMED CT 907777414797392) 2. Depression (SNOMED CT 25228549) 3. Chronic post-traumatic stress disorder following combat (SNOMED CT 4. Idiopathic chronic neuropathy (SNOMED CT 937211769) - EMG-proven 5. Lumbar spondylosis 6. Prostate Cancer (SCT 787265920) - status post radical retroprostatectomy 2012 complicated by incontinence 7. 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 Osteopenia - per 10/2022 DEXA 9. Recurrent falls - Likely driven by of his severe lower extremity neuropathy 10. Alcohol Abuse (SCT 87691939) 11. Gastritis - suspected NSAID-induced 2013 +/- EtOH: remains on PPI 12. COPD - Chronic Obstructive Pulmonary Disease (SCT 59429451) 13. History of Polyp of Colon (SCT 214862833) - last colonoscopy 06/21/2013 notable for hyperplastic polyp w/ repeat due June 2023 for screening purposes 14. 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 Insomnia (SCT 718663707) 16. Vitamin D deficiency 17. Vitamin B12 deficiency (non anemic) 18. Exposure to potentially hazardous substance (SCT 828110241026286) - [facility]tered through [facility] [employer] Documentation Initiative 19. Genital herpes simplex - Uses PRN acyclovir Active Medications: Active Outpatient Medications (including Supplies): Active Outpatient Medications Status 1) ACYCLOVIR [...] ONE TABLET BY MOUTH EVERY DAY [facility] 19) TRAZODONE HCL 150MG TAB TAKE ONE TABLET BY MOUTH AT ACTIVE (S) BEDTIME FOR SLEEP LABS Wt: 142 lb [64.41 kg] (04/01/2023 10:27) Ht: 71 in [180.3 cm] (04/01/2023 10:27) BP: 157/69 (04/01/2023 10:46) HR: 54 (04/01/2023 10:27) BMI: 19.8 Last 3 A1c: Collection DT Spec HGBA1C 01/29/2021 08:52 BLOOD 4.5 04/22/2017 08:51 BLOOD 5.0 04/16/2016 08:30 BLOOD 5.0 Lipid Panel: CHOLESTEROL____ TRIGLYCERIDE____ HDL____ LDL CALCULATION____ AIMS: Due ASSESSMENT: is a 72 y/o MALE who is prescribed an antipsychotic. Annual antipsychotic monitoring includes: -Annual BMI and blood pressure -Fasting blood glucose or A1c -Lipid panel -AIMS exam Metabolic lab monitoring and AIMS exam are due. Will alert prescriber to consider discussing at next appt. PLAN: 1. Alert prescriber to consider antipsychotic lab monitoring/ AIMS exam at next appt with [place] Time spent: 5 minutes /marli/ ELVIN COWAN PHARMD, [facility] Mental Health Clinical Pharmacist Practitioner Signed: 06/12/2023 14:18 Receipt Acknowledged By: 06/13/2023 16:27 /marli/ Husam Maynard M.D., Ph.D. STAFF PSYCHIATRIST HUSAM MAYNARD V [facility] Jun 12, 2023 02:09 PM PHARMACY NOTE: LOCAL TITLE: PHARMACOTHERAPY-CLINICAL PHARMACY NOTE STANDARD TITLE: PHARMACY NOTE DATE OF NOTE: JUN 12, 2023@14:09 ENTRY DATE: JUN 12, 2023@14:09:53 AUTHOR: ELVIN COWAN COSIGNER: URGENCY: STATUS: COMPLETED PHARMACOTHERAPY-CLINICAL PHARMACY NOTE Has ADDENDA ========= MENTAL HEALTH PHARMACY SERVICE ========= Date of service: JUN 12, 2023 [place] was identified as being prescribed an antipsychotic. Chart was reviewed to assess for monitoring considerations. is currently prescribed olanzapine. Active problems - Computerized Problem List is the source for the followin. Heavy tobacco smoker (SNOMED CT 575342153298029) 2. Depression (SNOMED CT 29391417) 3. Chronic post-traumatic stress disorder following combat (SNOMED CT 4. Idiopathic chronic neuropathy (SNOMED CT 098349028) - EMG-proven 5. Lumbar spondylosis 6. Prostate Cancer (SCT 422486192) - status post radical retroprostatectomy 2012 complicated by incontinence 7. 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 Osteopenia - per 10/2022 DEXA 9. Recurrent falls - Likely driven by of his severe lower extremity neuropathy 10. Alcohol Abuse (SCT 50810178) 11. Gastritis - suspected NSAID-induced 2013 +/- EtOH: remains on PPI 12. COPD - Chronic Obstructive Pulmonary Disease (SCT 82334138) 13. History of Polyp of Colon (SCT 143744307) - last colonoscopy 06/21/2013 notable for hyperplastic polyp w/ repeat due June 2023 for screening purposes 14. 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 Insomnia ([facility] 896699176) 16. Vitamin D deficiency 17. Vitamin B12 deficiency (non anemic) 18. Exposure to potentially hazardous substance ([facility] [id number]) [facility] [employer] Documentation Initiative 19. Genital herpes simplex - Uses PRN acyclovir Active Medications: Active Outpatient Medications (including Supplies): Active Outpatient Medications Status 1) ACYCLOVIR [...] ONE TABLET BY MOUTH EVERY DAY [facility] 19) TRAZODONE HCL 150MG TAB TAKE ONE TABLET BY MOUTH AT ACTIVE (S) BEDTIME FOR SLEEP LABS Wt: 142 lb [64.41 kg] (04/01/2023 10:27) Ht: 71 in [180.3 cm] (04/01/2023 10:27) BP: 157/69 (04/01/2023 10:46) HR: 54 (04/01/2023 10:27) BMI: 19.8 Last 3 A1c: Collection DT Spec HGBA1C 01/29/2021 08:52 BLOOD 4.5 04/22/2017 08:51 BLOOD 5.0 04/16/2016 08:30 BLOOD 5.0 Lipid Panel: CHOLESTEROL____ TRIGLYCERIDE____ HDL____ LDL CALCULATION____ AIMS: Due ASSESSMENT: [place] is a 72 y/o MALE who is prescribed an antipsychotic. Annual antipsychotic monitoring includes: -Annual BMI and blood pressure -Fasting blood glucose or A1c -Lipid panel -AIMS exam Metabolic lab monitoring and AIMS exam are due. Will alert prescriber to consider discussing at next appt. PLAN: 1. Alert prescriber to consider antipsychotic lab monitoring/ AIMS exam at next appt with Time spent: 5 minutes /marli/ ELVIN COWAN, HIRALD, [facility] Mental Health Clinical Pharmacist Practitioner Signed: 06/12/2023 14:18 Receipt Acknowledged By: 06/13/2023 16:27 /kelly Maynard M.D., Ph.D. STAFF PSYCHIATRIST 06/13/2023 ADDENDUM STATUS: COMPLETED Will request RN schedule f2f follow up for AIMS and atypicals panel and eval. /kelly Maynard M.D., Ph.D. STAFF PSYCHIATRIST Signed: 06/13/2023 16:15 ELVIN COWAN [facility]
--- OUTSIDE RECORDS SUMMARY | 2023-08-05 14:00 | XMS_ITS | Encounter Summary ---
Author Name [facility] Organization [facility] Address [address] [place] [address] Support Name Relationship Address Phone ANTOINE SKELTON Next of Kin , RADHA [address] RANTAL[place], CARIE Emergency Contact , [place] [phone] ANTOINE SKELTON Next of Kin , RADHA [address] RANTALA, CARIE Emergency Contact , [place] Insurance Providers: [...] AID (WNR) Aug 08, 2013 MEDICAI D [id number] [phone] DERICK SKELTON PATIENT MEDICARE (WNR) MEDICARE (M) PART A Sep 07, 2016 PART A [id number] DERICK SKELTON PATIENT Selected Encounter This section includes the information on record at [place] for the Encounter. Date/Time Encounter Type Encounter Description Reason Pro vider Source Jun 09, 2023 09:58 AM Outpatient Encounter MENTAL [facility] IHE Encounter Template Text not used by [...] 09:00 AM AM[place]UL[place]ORY [place] [facility] Sep 23, 2023 08:15 AM [place] [facility] Sep 23, 2023 09:15 AM [facility] Active, Pending, and Scheduled Orders This [...] Order BASIC METABOLIC PANEL+MG PLASMA SP ONCE [facility] Apr 29, 2023 12:00 AM Laboratory - Chemi stry Order CBC BLOOD SP [facility] Jun 27, 2023 12:19 PM Consult Order COMMUNITY CARE-CHIROPRACTIC Cons Butadiene Converter Helper's Choice [facility] July 18, 2023 12:00 AM Laboratory - Chemi stry Order CBC BLOOD SP ONCE [facility] July 18, 2023 12:00 AM Laboratory - Chemi stry Order IRON GROUP SERUM SP [facility] Social History: Smoking Status (Most [...] 2022 09:15 AM VA-TOBACCO USER EVERY DAY [facility] Tobacco Use History This section includes a history of the smoking, or tobacco-related health factors, that were collected on or before the date of the Encounter. The data comes from the [place] facility where the Encounter took place. Date/Time Smoking Status/Tobacco Use Comment F acility Aug 20, 2022 09:15 AM VA-TOBACCO USE ADVICE [facility] Aug 20, 2022 09:15 AM VA-TOBACCO USE DATABASE DBA NO [facility] Aug 20, 2022 09:15 AM VA-TOBACCO USE MED NO [facility] Aug 20, 2022 09:15 AM VA-TOBACCO USE WI 30 MIN OF WAKE UP [facility] Aug 20, 2022 09:15 AM VA-TOBACCO USER EVERY DAY [facility] Sep 12, 2021 09:15 AM VA-TOBACCO USE 30 YEARS OR MORE [facility] Sep 12, 2021 09:15 AM VA-TOBACCO USE ADVICE [facility] Sep 12, 2021 09:15 AM VA-TOBACCO USE DATABASE DBA NO [facility] Sep 12, 2021 09:15 AM VA-TOBACCO USE MED NO [facility] Sep 12, 2021 09:15 AM VA-TOBACCO USE WI 30 MIN OF WAKE UP [facility] Sep 12, 2021 09:15 AM VA-TOBACCO USER EVERY DAY [facility] Sep 01, 2020 01:30 PM VA-TOBACCO DOESNT USE WI 30 MIN WAKEUP [facility] Sep 01, 2020 01:30 PM VA-TOBACCO USE 30 YEARS OR MORE [facility] Sep 01, 2020 01:30 PM VA-TOBACCO USE ADVICE [facility] Sep 01, 2020 01:30 PM VA-TOBACCO USE DATABASE DBA NO [facility] Sep 01, 2020 01:30 PM VA-TOBACCO USE MED NO [facility] Sep 01, 2020 01:30 PM VA-TOBACCO USER EVERY DAY [facility] Sep 27, 2019 09:35 AM VA-TOBACCO USE 30 YEARS OR MORE [facility] Sep 27, 2019 09:35 AM VA-TOBACCO USE ADVICE [facility] Sep 27, 2019 09:35 AM VA-TOBACCO USE DATABASE DBA NO [facility] Sep 27, 2019 09:35 AM VA-TOBACCO USE MED NO [facility] Sep 27, 2019 09:35 AM VA-TOBACCO USE WI 30 MIN OF WAKE UP [facility] Sep 27, 2019 09:35 AM VA-TOBACCO USER EVERY DAY [facility] Mar 04, 2018 01:45 PM VA-TOBACCO USE 30 YEARS OR MORE [facility] Mar 04, 2018 01:45 PM VA-TOBACCO USE ADVICE [facility] Mar 04, 2018 01:45 PM VA-TOBACCO USE DATABASE DBA NO [facility] Mar 04, 2018 01:45 PM VA-TOBACCO USE MED NO [facility] Mar 04, 2018 01:45 PM VA-TOBACCO USE WI 30 MIN OF WAKE UP [facility] Mar 04, 2018 01:45 PM VA-TOBACCO USER EVERY DAY [facility] Apr 22, 2017 10:01 AM CURRENT TOBACCO USER [facility] Apr 16, 2016 09:52 AM CURRENT TOBACCO USER [facility] July 26, 2014 09:08 AM CURRENT TOBACCO USER [facility] Dec 31, 2013 10:06 AM CURRENT TOBACCO USER [facility] Sep 05, 2012 09:27 AM CURRENT TOBACCO USER [facility] Nov 25, 2011 09:12 AM CURRENT TOBACCO USER [facility] Feb 08, 2011 10:04 AM CURRENT TOBACCO USER [facility] May 01, 2010 10:24 AM CURRENT TOBACCO USER [facility] Jul 03, 2009 08:42 AM CURRENT TOBACCO USER [facility] Encounter Notes: All associated encounter notes This section contains the clinical notes associated to the Encounter. Date/Time Encounter Note(s) Provider Source Jun 09, 2023 09:58 AM NO SHOW NOTE: LOCAL TITLE: NO SHOW/CANCELLATION CLINIC NOTE STANDARD TITLE: NO SHOW NOTE DATE OF NOTE: JUN 09, 2023@09:58 ENTRY DATE: JUN 09, 2023@09:58:23 AUTHOR: SHARRI GARZA EXP COSIGNER: URGENCY: STATUS: COMPLETED Christine not seen for scheduled appointment due to: Christine cancelled VEText Appt Cx: DAVEY MAYNARD 1P-100B Appt. on Jun 09:30 was cancelled by the Patient. Appointment Rescheduled: No [employer] will ask MSA's to make additional r/s attempts per policy. Please review patient chart and medications for renewal needs (if appropriate). /marli/ SHARRI GARZA Signed: 06/09/2023 09:59 Receipt Acknowledged By: 06/09/2023 10:48 /es/ ROSCOE CHAPARRO, RN REGISTERED NURSE for OCTAVIANO HEWITT 06/11/2023 08:23 /marli/ Husam Maynard M.D., Ph.D. STAFF PSYCHIATRIST SHARRI GARZA [facility]
--- OUTSIDE RECORDS SUMMARY | 2023-08-05 14:01 | XMS_ITS | Encounter Summary ---
Author Name [facility] Organization [facility] of [facility] Address [address] [place] [address] Support Name Relationship Address Phone ANTOINE SKELTON Next of Kin , RADHA [address] RANTALWil, CARIE Emergency Contact , [place] ANTOINE SKELTON Next of Kin , RADHA [address] RANTALA, CARIE Emergency Contact , [place] Insurance Providers: All historical and current Section [...] AID (WNR) Aug 08, 2013 MEDICAI D [id number] DERICK SKELTON PATIENT MEDICARE (WNR) MEDICARE (M) PART A Sep 07, 2016 PART A [id number] [phone] DERICK SKELTON PATIENT Selected Encounter This section includes the information on record at [place] for the Encounter. Date/Time Encounter Type Encounter Description Reason Provider Source Jun 20, 2023 08:06 AM Outpatient Encounter [facility]AL [facility]ALTH [facility] OCTAVIANO HEWITT Encounter Template Text not used by [place] Plan of Treatment: Future Appointments (+ 6 months) and Future Tests (+/- 45 days) The Plan of Treatment section includes future care activities for the patient from all [place] treatmentfacilities. This section includes future appointments and future orders which are active, pending or scheduled. Future Appointments This section includes appointments that were scheduled to occur 6 months from the date of the Encounter, up to a maximum of 20 appointments. The data comes from all [facility] treatment facilities. Appointment Date/Time Appointment Type Appointme nt Facility Name July 16, 2023 09:00 AM AM[place]ORY [place] [facility] Sep 23, 2023 08:15 AM [place] [facility] Sep 23, 2023 09:15 AM [facility] [place] [facility] Active, Pending, and Scheduled Orders This section includes a listing of several types of active, pending, and scheduled orders, including clinic medications orders, diagnostic test orders, procedure orders and consult orders; where the start date of the order is 45 days before the date of the Encounter or 45 days after the date of theEncounter. The data comes from all [facility]. Test Date/Time Test Type Test Details Facility Name Jun 27, 2023 12:19 PM Consult Order COMMUNITY CARE-CHIROPRACTIC Cons Patcher's Choice [facility] July 18, 2023 12:00 AM Laboratory - Chemi stry Order CBC BLOOD SP ONCE [facility] July 18, 2023 12:00 AM Laboratory - Chemi stry Order IRON GROUP SERUM SP [facility] Social History: Smoking Status (Most current) and Tobacco Use (All prior to encounter date) This section includes the most current, and the historical, smoking and tobacco- related health factors from the [place] facility where the Encounter took place. Current Smoking Status This section includes the most current smoking, or tobacco-related health factor, from the [place] facility where the Encounter took place. Date/Time Current Smoking Status Comment Facil ity Aug 20, 2022 09:15 AM VA-TOBACCO USER EVERY DAY [facility] Tobacco Use History This section includes a history of the smoking, or tobacco-related health factors, that were collected on or before the date of the Encounter. The data comes from the [place] facility where the Encounter took place. Date/Time Smoking Status/Tobacco Use Comment F acility Aug 20, 2022 09:15 AM VA-TOBACCO USE ADVICE [facility] Aug 20, 2022 09:15 AM VA-TOBACCO USE COMMUNICATIONS SENIOR ASSOCIATE NO [facility] Aug 20, 2022 09:15 AM VA-TOBACCO USE MED NO [facility] Aug 20, 2022 09:15 AM VA-TOBACCO USE WI 30 MIN OF WAKE UP [facility] Aug 20, 2022 09:15 AM VA-TOBACCO USER EVERY DAY [facility] Sep 12, 2021 09:15 AM VA-TOBACCO USE 30 YEARS OR MORE [facility] Sep 12, 2021 09:15 AM VA-TOBACCO USE ADVICE [facility] Sep 12, 2021 09:15 AM VA-TOBACCO USE COMMUNICATIONS SENIOR ASSOCIATE NO [facility] Sep 12, 2021 09:15 AM VA-TOBACCO USE MED NO [facility] Sep 12, 2021 09:15 AM VA-TOBACCO USE WI 30 MIN OF WAKE UP [facility] Sep 12, 2021 09:15 AM VA-TOBACCO USER EVERY DAY [facility] Sep 01, 2020 01:30 PM VA-TOBACCO DOESNT USE WI 30 MIN WAKEUP [facility] Sep 01, 2020 01:30 PM VA-TOBACCO USE 30 YEARS OR MORE [facility] Sep 01, 2020 01:30 PM VA-TOBACCO USE ADVICE [facility] Sep 01, 2020 01:30 PM VA-TOBACCO USE COMMUNICATIONS SENIOR ASSOCIATE NO [facility] Sep 01, 2020 01:30 PM VA-TOBACCO USE MED NO [facility] Sep 01, 2020 01:30 PM VA-TOBACCO USER EVERY DAY [facility] Sep 27, 2019 09:35 AM VA-TOBACCO USE 30 YEARS OR MORE [facility] Sep 27, 2019 09:35 AM VA-TOBACCO USE ADVICE [facility] Sep 27, 2019 09:35 AM VA-TOBACCO USE COMMUNICATIONS SENIOR ASSOCIATE NO [facility] Sep 27, 2019 09:35 AM VA-TOBACCO USE MED NO [facility] Sep 27, 2019 09:35 AM VA-TOBACCO USE WI 30 MIN OF WAKE UP [facility] Sep 27, 2019 09:35 AM VA-TOBACCO USER EVERY DAY [facility] Mar 04, 2018 01:45 PM VA-TOBACCO USE 30 YEARS OR MORE [facility] Mar 04, 2018 01:45 PM VA-TOBACCO USE ADVICE [facility] Mar 04, 2018 01:45 PM VA-TOBACCO USE COMMUNICATIONS SENIOR ASSOCIATE NO [facility] Mar 04, 2018 01:45 PM VA-TOBACCO USE MED NO [facility] Mar 04, 2018 01:45 PM VA-TOBACCO USE WI 30 MIN OF WAKE UP [facility] Mar 04, 2018 01:45 PM VA-TOBACCO USER EVERY DAY [facility] Apr 22, 2017 10:01 AM CURRENT TOBACCO USER [facility] Apr 16, 2016 09:52 AM CURRENT TOBACCO USER [facility] July 26, 2014 09:08 AM CURRENT TOBACCO USER [facility] Dec 31, 2013 10:06 AM CURRENT TOBACCO USER [facility] Sep 05, 2012 09:27 AM CURRENT TOBACCO USER [facility] Nov 25, 2011 09:12 AM CURRENT TOBACCO USER [facility] Feb 08, 2011 10:04 AM CURRENT TOBACCO USER [facility] May 01, 2010 10:24 AM CURRENT TOBACCO USER [facility] Jul 03, 2009 08:42 AM CURRENT TOBACCO USER [facility] Encounter Notes: All associated encounter notes This section contains the clinical notes associated to the Encounter. Date/Time Encounter Note(s) Provider Source Jun 20, 2023 08:06 AM MENTAL HEALTH SECU RE MESSAGING: LOCAL TITLE: MENTAL HEALTH SECURE MESSAGING STANDARD TITLE: MENTAL HEALTH SECURE MESSAGING DATE OF NOTE: JUN 20, 2023@08:06 ENTRY DATE: JUN 20, 2023@08:06:28 AUTHOR: OCTAVIANO HEWITT EXP COSIGNER: URGENCY: STATUS: COMPLETED ------Original Message ----- Sent: 06/20/2023 01:10 AM ET From: FRANCES SKELTON To: [facility] Mental Health Team B % Subject: Medication:Duloxetine Due to ongoing depression and chronic pain, would it be possible to try increasing duloxetine to 120 mg? Do I have an upcoming phone appointment with Dr. Alicea? Darryl [phone] (emergency management director) ------Original Message ----- Sent: 06/20/2023 09:05 AM ET From: OCTAVIANO HEWITT To: FRANCES SKELTON Subject: Medication:Duloxetine Hello Your next appointment with Dr Alicea is July 15 at 0900. Call [phone] to get an earlier appointment- he should have some openings before July 15. I would recommend setting up a primary care appointment and see what options they have for your chronic pain has well. Sebas /marli/ OCTAVIANO HEWITT RN REGISTERED NURSE Signed: 06/20/2023 08:06 Receipt Acknowledged By: 06/20/2023 13:07 /marli/ Husam Alicea M.D., Ph.D. STAFF PSYCHIATRIST OCTAVIANO HEWITT [facility]
--- OUTSIDE RECORDS SUMMARY | 2023-08-05 14:01 | XMS_ITS | Encounter Summary ---
Author Name [facility] Organization [facility] Address [address] [place] [address] Support Name Relationship Address Phone ANTOINE SKELTON Next of Kin , RADHA [address] [address] [place] Emergency Contact , [place] ANTOINE SKELTON Next of Kin , RADHA [address] MANTALA, CARIE Emergency Contact , [place] Insurance Providers: All historical and current Section [...] AID (WNR) Aug 08, 2013 MEDICAI D [id number] DERICK SKELTON PATIENT MEDICARE (WNR) MEDICARE (M) PART A Sep 07, 2016 PART A [id number] DERICK SKELTON PATIENT Selected Encounter This section includes the information on record at [place] for the Encounter. Date/Time Encounter Type Encounter Description Reason Pro vider Source Jun 23, 2023 03:06 PM Outpatient Encounter EVENT (HISTORICAL) [facility] Encounter Template Text not used by [place] Plan of Treatment: Future Appointments (+ 6 months) and Future Tests (+/- 45 days) The Plan of Treatment section includes future care activities for the patient from all [place] treatmentfacilities. This section includes future appointments and future orders which are active, pending or scheduled. Future Appointments This section includes appointments that were scheduled to occur 6 months from the date of the Encounter, up to a maximum of 20 appointments. The data comes from all [place] treatment facilities. Appointment Date/Time Appointment Type Appointme nt Facility Name July 16, 2023 09:00 AM AM[place]ULATORY [place] [facility] Sep 23, 2023 08:15 AM [place] [facility] Sep 23, 2023 09:15 AM [facility] Active, Pending, and Scheduled Orders This section includes a listing of several types of active, pending, and scheduled orders, including clinic medications orders, diagnostic test orders, procedure orders and consult orders; where the start date of the order is 45 days before the date of the Encounter or 45 days after the date of theEncounter. The data comes from all [place] treatment facilities. Test Date/Time Test Type Test Details Facility Name Jun 27, 2023 12:19 PM Consult Order COMMUNITY CARE-CHIROPRACTIC Cons Air Bag Buffer's Choice [facility] July 18, 2023 12:00 AM Laboratory - Chemi stry Order CBC BLOOD SP ONCE [facility] July 18, 2023 12:00 AM Laboratory - Chemi stry Order IRON GROUP SERUM SP [facility] Social History: Smoking Status (Most current) and Tobacco Use (All prior to encounter date) This section includes the most current, and the historical, smoking and tobacco- related health factors from the [place] facility where the Encounter took place. Current Smoking Status This section includes the most current smoking, or tobacco-related health factor, from the [place] facility where the Encounter took place. Date/Time Current Smoking Status Comment Facil ity Aug 20, 2022 09:15 AM VA-TOBACCO USER EVERY DAY [facility] Tobacco Use History This section includes a history of the smoking, or tobacco-related health factors, that were collected on or before the date of the Encounter. The data comes from the [place] facility where the Encounter took place. Date/Time Smoking Status/Tobacco Use Comment F acility Aug 20, 2022 09:15 AM VA-TOBACCO USE ADVICE [facility] Aug 20, 2022 09:15 AM VA-TOBACCO USE PARAPROFESSIONAL AIDE TEACHER NO [facility] Aug 20, 2022 09:15 AM VA-TOBACCO USE MED NO [facility] Aug 20, 2022 09:15 AM VA-TOBACCO USE WI 30 MIN OF WAKE UP [facility] Aug 20, 2022 09:15 AM VA-TOBACCO USER EVERY DAY [facility] Sep 12, 2021 09:15 AM VA-TOBACCO USE 30 YEARS OR MORE [facility] Sep 12, 2021 09:15 AM VA-TOBACCO USE ADVICE [facility] Sep 12, 2021 09:15 AM VA-TOBACCO USE PARAPROFESSIONAL AIDE TEACHER NO [facility] Sep 12, 2021 09:15 AM VA-TOBACCO USE MED NO [facility] Sep 12, 2021 09:15 AM VA-TOBACCO USE WI 30 MIN OF WAKE UP [facility] Sep 12, 2021 09:15 AM VA-TOBACCO USER EVERY DAY [facility] Sep 01, 2020 01:30 PM VA-TOBACCO DOESNT USE WI 30 MIN WAKEUP [facility] Sep 01, 2020 01:30 PM VA-TOBACCO USE 30 YEARS OR MORE [facility] Sep 01, 2020 01:30 PM VA-TOBACCO USE ADVICE [facility] Sep 01, 2020 01:30 PM VA-TOBACCO USE PARAPROFESSIONAL AIDE TEACHER NO [facility] Sep 01, 2020 01:30 PM VA-TOBACCO USE MED NO [facility] Sep 01, 2020 01:30 PM VA-TOBACCO USER EVERY DAY [facility] Sep 27, 2019 09:35 AM VA-TOBACCO USE 30 YEARS OR MORE [facility] Sep 27, 2019 09:35 AM VA-TOBACCO USE ADVICE [facility] Sep 27, 2019 09:35 AM VA-TOBACCO USE PARAPROFESSIONAL AIDE TEACHER NO [facility] Sep 27, 2019 09:35 AM VA-TOBACCO USE MED NO [facility] Sep 27, 2019 09:35 AM VA-TOBACCO USE WI 30 MIN OF WAKE UP [facility] Sep 27, 2019 09:35 AM VA-TOBACCO USER EVERY DAY [facility] Mar 04, 2018 01:45 PM VA-TOBACCO USE 30 YEARS OR MORE [facility] Mar 04, 2018 01:45 PM VA-TOBACCO USE ADVICE [facility] Mar 04, 2018 01:45 PM VA-TOBACCO USE PARAPROFESSIONAL AIDE TEACHER NO [facility] Mar 04, 2018 01:45 PM VA-TOBACCO USE MED NO [facility] Mar 04, 2018 01:45 PM VA-TOBACCO USE WI 30 MIN OF WAKE UP [facility] Mar 04, 2018 01:45 PM VA-TOBACCO USER EVERY DAY [facility] Apr 22, 2017 10:01 AM CURRENT TOBACCO USER [facility] Apr 16, 2016 09:52 AM CURRENT TOBACCO USER [facility] July 26, 2014 09:08 AM CURRENT TOBACCO USER [facility] Dec 31, 2013 10:06 AM CURRENT TOBACCO USER [facility] Sep 05, 2012 09:27 AM CURRENT TOBACCO USER [facility] Nov 25, 2011 09:12 AM CURRENT TOBACCO USER [facility] Feb 08, 2011 10:04 AM CURRENT TOBACCO USER [facility] May 01, 2010 10:24 AM CURRENT TOBACCO USER [facility] Jul 03, 2009 08:42 AM CURRENT TOBACCO USER [facility] Encounter Notes: All associated encounter notes This section contains the clinical notes associated to the Encounter. Date/Time Encounter Note(s) Provider Source Jun 23, 2023 03:06 PM [facility] DIALOG NOTE: LOCAL TITLE: SECURE MESSAGING STANDARD TITLE: [facility] DIALOG NOTE DATE OF NOTE: JUN 23, 2023@15:06 ENTRY DATE: JUN 23, 2023@15:06:13 AUTHOR: MARIJA JIMENEZ EXP COSIGNER: URGENCY: STATUS: COMPLETED ------Original Message -- Sent: 06/20/2023 02:00 AM ET From: FRANCES SKELTON To: [facility]_Admin Subject: General:Chiropractic Referral Are you able to check the status of my [facility] referral for [facility]? I think it was requested about 2 months ago. ------Original Message -- Sent: 06/23/2023 04:05 PM ET From: MARIJA JIMENEZ To: FRANCES SKELTON Subject: General:Chiropractic Referral Good afternoon, I have reviewed your chart and I see that there was a request for a new chiropractic referral, however it was cancelled as Pineda Kingstonpractzaida did not send in a completed Request for Services form along with all of your previous visit records. To initiate the request process for continuation of this coverage, Pineda Ho will need to send in a completed Request for Services form along with your visit records to [facility]: [phone]. Once a complete packet is received, it will be reviewed for approval. To ensure you do not get billed for any visits, please do not schedule any appointments until you receive confirmation from [facility] that the referral has been approved and sent to your preferred provider. I have sent the required form along with instructions to Pineda Kingstonpractzaida. Marija Talavera [facility] // MARIJA JIMENEZ [facility] CARE MANAGER Signed: 06/23/2023 15:06 MARIJA JIMENEZ [facility]
[2023-08-05] MEDS: MORPHINE 2 MG/ML inj IVP (14:02)
--- OUTSIDE RECORDS SUMMARY | 2023-08-05 14:02 | XMS_ITS | Encounter Summary ---
Author Name [facility] Organization [facility] Address [address] [place] [address] Support Name Relationship Address Phone ANTOINE SKELTON Next of Kin , RADHA [address] CARIE CHAVEZ Emergency Contact , [place] [phone] ANTOINE SKELTON Next of Kin , RADHA [address] KATHY CARIE Emergency Contact , [place] Insurance Providers: All historical and current Section [...] AID (WNR) Aug 08, 2013 MEDICAI D [id number] DERICK SKELTON PATIENT MEDICARE (WNR) MEDICARE (M) PART A Sep 07, 2016 PART A [id number] DERICK SKELTON PATIENT Selected Encounter This section includes the information on record at [place] for the Encounter. Date/Time Encounter Type Encounter Description Reason Pro vider Source May 27, 2023 11:15 AM Outpatient Encounter PRIMARY CARE/MEDICINE [facility] Encounter Template Text not used by [place] Plan of Treatment: Future Appointments (+ 6 months) and Future Tests (+/- 45 days) The Plan of Treatment section includes future care activities for the patient from all [place] treatmentfacilities. This section includes future appointments and future orders which are active, pending or scheduled. Future Appointments This section includes appointments that were scheduled to occur 6 months from the date of the Encounter, up to a maximum of 20 appointments. The data comes from all [place] treatment facilities. Appointment Date/Time Appointment Type Appointme nt Facility Name Jun 04, 2023 09:00 [facility] Jun 04, 2023 09:15 AM [facility] July 16, 2023 09:00 AM [facility] Sep 23, 2023 08:15 AM [place] [place] [facility] Sep 23, 2023 09:15 AM AMBULATORY - MEDICINE [facility] Active, Pending, and Scheduled Orders This section includes a listing of several types of active, pending, and scheduled orders, including clinic medications orders, diagnostic test orders, procedure orders and consult orders; where the start date of the order is 45 days before the date of the Encounter or 45 days after the date of theEncounter. The data comes from all [facility] facilities. Test Date/Time Test Type Test Details Facility Name Apr 29, 2023 12:00 AM Laboratory - Chemi stry Order BASIC METABOLIC PANEL+MG PLASMA SP ONCE [facility] Apr 29, 2023 12:00 AM Laboratory - Chemi stry Order CBC BLOOD SP [facility] Jun 27, 2023 12:19 PM Consult Order COMMUNITY CARE-CHIROPRACTIC Cons Diagnostic Technician's Choice [facility] Social History: Smoking Status (Most current) and [...] place. Date/Time Current Smoking Status Comment Silvia ity Aug 20, 2022 09:15 AM VA-TOBACCO USER EVERY DAY [facility] Tobacco Use History This section includes a history of the smoking, or tobacco-related health factors, that were collected on or before the date of the Encounter. The data comes from the [place] facility where the Encounter took place. Date/Time Smoking Status/Tobacco Use Comment F acility Aug 20, 2022 09:15 AM VA-TOBACCO USE ADVICE [facility] Aug 20, 2022 09:15 AM VA-TOBACCO USE MANPOWER DEVELOPMENT SPECIALIST MANAGER NO [facility] Aug 20, 2022 09:15 AM VA-TOBACCO USE MED NO [facility] Aug 20, 2022 09:15 AM VA-TOBACCO USE WI 30 MIN OF WAKE UP [facility] Aug 20, 2022 09:15 AM VA-TOBACCO USER EVERY DAY [facility] Sep 12, 2021 09:15 AM VA-TOBACCO USE 30 YEARS OR MORE [facility] Sep 12, 2021 09:15 AM VA-TOBACCO USE ADVICE [facility] Sep 12, 2021 09:15 AM VA-TOBACCO USE MANPOWER DEVELOPMENT SPECIALIST MANAGER NO [facility] Sep 12, 2021 09:15 AM VA-TOBACCO USE MED NO [facility] Sep 12, 2021 09:15 AM VA-TOBACCO USE WI 30 MIN OF WAKE UP [facility] Sep 12, 2021 09:15 AM VA-TOBACCO USER EVERY DAY [facility] Sep 01, 2020 01:30 PM VA-TOBACCO DOESNT USE WI 30 MIN WAKEUP [facility] Sep 01, 2020 01:30 PM VA-TOBACCO USE 30 YEARS OR MORE [facility] Sep 01, 2020 01:30 PM VA-TOBACCO USE ADVICE [facility] Sep 01, 2020 01:30 PM VA-TOBACCO USE MANPOWER DEVELOPMENT SPECIALIST MANAGER NO [facility] Sep 01, 2020 01:30 PM VA-TOBACCO USE MED NO [facility] Sep 01, 2020 01:30 PM VA-TOBACCO USER EVERY DAY [facility] Sep 27, 2019 09:35 AM VA-TOBACCO USE 30 YEARS OR MORE [facility] Sep 27, 2019 09:35 AM VA-TOBACCO USE ADVICE [facility] Sep 27, 2019 09:35 AM VA-TOBACCO USE MANPOWER DEVELOPMENT SPECIALIST MANAGER NO [facility] Sep 27, 2019 09:35 AM VA-TOBACCO USE MED NO [facility] Sep 27, 2019 09:35 AM VA-TOBACCO USE WI 30 MIN OF WAKE UP [facility] Sep 27, 2019 09:35 AM VA-TOBACCO USER EVERY DAY [facility] Mar 04, 2018 01:45 PM VA-TOBACCO USE 30 YEARS OR MORE [facility] Mar 04, 2018 01:45 PM VA-TOBACCO USE ADVICE [facility] Mar 04, 2018 01:45 PM VA-TOBACCO USE MANPOWER DEVELOPMENT SPECIALIST MANAGER NO [facility] Mar 04, 2018 01:45 PM VA-TOBACCO USE MED NO [facility] Mar 04, 2018 01:45 PM VA-TOBACCO USE WI 30 MIN OF WAKE UP [facility] Mar 04, 2018 01:45 PM VA-TOBACCO USER EVERY DAY [facility] Apr 22, 2017 10:01 AM CURRENT TOBACCO USER [facility] Apr 16, 2016 09:52 AM CURRENT TOBACCO USER [facility] July 26, 2014 09:08 AM CURRENT TOBACCO USER [facility] Dec 31, 2013 10:06 AM CURRENT TOBACCO USER [facility] Sep 05, 2012 09:27 AM CURRENT TOBACCO USER [facility] Nov 25, 2011 09:12 AM CURRENT TOBACCO USER [facility] Feb 08, 2011 10:04 AM CURRENT TOBACCO USER [facility] May 01, 2010 10:24 AM CURRENT TOBACCO USER [facility] Jul 03, 2009 08:42 AM CURRENT TOBACCO USER [facility] Encounter Notes: All associated encounter notes This section contains the clinical notes associated to the Encounter. Date/Time Encounter Note(s) Provider Source Jun 26, 2023 09:04 AM HOME HEALTH REFERR AL NOTE: LOCAL TITLE: [facility] HOME HEALTH CARE STANDARD TITLE: HOME HEALTH REFERRAL NOTE DATE OF NOTE: JUN 26, 2023@09:04 ENTRY DATE: JUN 26, 2023@09:04:26 AUTHOR: ELLEN RODRIGUEZ EXP COSIGNER: URGENCY: STATUS: COMPLETED HOME HEALTH CARE CERTIFICATION AND PLAN OF CARE SIGNED BY: Dr. cannon............[place], [place]06/09/2023 Certification period From: 06/20/2023 To: 08/18/2023 /marli/ ELLEN RODRIGUEZ no Signed: 06/26/2023 09:06 ELLEN RODRIGUEZ [facility]
--- OUTSIDE RECORDS SUMMARY | 2023-08-05 14:02 | XMS_ITS | Encounter Summary ---
Author Name [facility] Organization Department of [facility] Address [address] [place] [address] Support Name Relationship Address Phone ANTOINE SKELTON Next of Kin , RADHA [address] [place], [place] Emergency Contact , [place] ANTOINE SKELTON Next of Kin , RADHA [address] [place], [place] Emergency Contact , [place] Insurance Providers: All historical and current Section [...] AID (WNR) Aug 08, 2013 MEDICAI D [id number] DERICK SKELTON PATIENT MEDICARE (WNR) MEDICARE (M) PART A Sep 07, 2016 PART A [id number] DERICK SKELTON PATIENT Selected Encounter This section includes the information on record at [place] for the Encounter. Date/Time Encounter Type Encounter Description Reason Pro vider Source Jun 27, 2023 07:54 AM Outpatient Encounter COMMUNITY CARE CONSULT IHE Encounter Template Text not used by [place] Plan of Treatment: Future Appointments (+ 6 months) and Future Tests (+/- 45 days) The Plan of Treatment section includes future care activities for the patient from all [place] treatmentfacilities. This section includes future appointments and future orders which are active, pending or scheduled. Future Appointments This section includes appointments that were scheduled to occur 6 months from the date of the Encounter, up to a maximum of 20 appointments. The data comes from all [place] treatment facilities. Appointment Date/Time Appointment Type Appointme nt Facility Name July 16, 2023 09:00 AM AM[place]ATORY [place] [facility] Sep 23, 2023 08:15 AM AM[place]ORY - [place]ONE [place] [facility] Sep 23, 2023 09:15 AM [facility] Active, Pending, and Scheduled Orders This section includes a listing of several types of active, pending, and scheduled orders, including clinic medications orders, diagnostic test orders, procedure orders and consult orders; where the start date of the order is 45 days before the date of the Encounter or 45 days after the date of theEncounter. The data comes from all [place] treatment facilities. Test Date/Time Test Type Test Details Facility Name Jun 27, 2023 12:19 PM Consult Order COMMUNITY CARE-CHIROPRACTIC Cons Scratch Polisher's Choice [facility] July 18, 2023 12:00 AM Laboratory - Chemi stry Order CBC BLOOD SP ONCE [facility] July 18, 2023 12:00 AM Laboratory - Chemi stry Order IRON GROUP SERUM SP [facility] Social History: Smoking Status (Most current) and Tobacco Use (All prior to encounter date) This section includes the most current, and the historical, smoking and tobacco- related health factors from the [place] facility where the Encounter took place. Current Smoking Status This section includes the most current smoking, or tobacco-related health factor, from the [place] facility where the Encounter took place. Date/Time Current Smoking Status Comment Facil ity Aug 20, 2022 09:15 AM VA-TOBACCO USER EVERY DAY [facility] Tobacco Use History This section includes a history of the smoking, or tobacco-related health factors, that were collected on or before the date of the Encounter. The data comes from the [place] facility where the Encounter took place. Date/Time Smoking Status/Tobacco Use Comment F acility Aug 20, 2022 09:15 AM VA-TOBACCO USE ADVICE [facility] Aug 20, 2022 09:15 AM VA-TOBACCO USE BUSINESS INFORMATION CONSULTANT NO [facility] Aug 20, 2022 09:15 AM VA-TOBACCO USE MED NO [facility] Aug 20, 2022 09:15 AM VA-TOBACCO USE [place] 30 MIN OF WAKE UP [facility] Aug 20, 2022 09:15 AM VA-TOBACCO USER EVERY DAY [facility] Sep 12, 2021 09:15 AM VA-TOBACCO USE 30 YEARS OR MORE [facility] Sep 12, 2021 09:15 AM VA-TOBACCO USE ADVICE [facility] Sep 12, 2021 09:15 AM VA-TOBACCO USE BUSINESS INFORMATION CONSULTANT NO [facility] Sep 12, 2021 09:15 AM VA-TOBACCO USE MED NO [facility] Sep 12, 2021 09:15 AM VA-TOBACCO USE WI 30 MIN OF WAKE UP [facility] Sep 12, 2021 09:15 AM VA-TOBACCO USER EVERY DAY [facility] Sep 01, 2020 01:30 PM VA-TOBACCO DOESNT USE WI 30 MIN WAKEUP [facility] Sep 01, 2020 01:30 PM VA-TOBACCO USE 30 YEARS OR MORE [facility] Sep 01, 2020 01:30 PM VA-TOBACCO USE ADVICE [facility] Sep 01, 2020 01:30 PM VA-TOBACCO USE BUSINESS INFORMATION CONSULTANT NO [facility] Sep 01, 2020 01:30 PM VA-TOBACCO USE MED NO [facility] Sep 01, 2020 01:30 PM VA-TOBACCO USER EVERY DAY [facility] Sep 27, 2019 09:35 AM VA-TOBACCO USE 30 YEARS OR MORE [facility] Sep 27, 2019 09:35 AM VA-TOBACCO USE ADVICE [facility] Sep 27, 2019 09:35 AM VA-TOBACCO USE BUSINESS INFORMATION CONSULTANT NO [facility] Sep 27, 2019 09:35 AM VA-TOBACCO USE MED NO [facility] Sep 27, 2019 09:35 AM VA-TOBACCO USE WI 30 MIN OF WAKE UP [facility] Sep 27, 2019 09:35 AM VA-TOBACCO USER EVERY DAY [facility] Mar 04, 2018 01:45 PM VA-TOBACCO USE 30 YEARS OR MORE [facility] Mar 04, 2018 01:45 PM VA-TOBACCO USE ADVICE [facility] Mar 04, 2018 01:45 PM VA-TOBACCO USE BUSINESS INFORMATION CONSULTANT NO [facility] Mar 04, 2018 01:45 PM VA-TOBACCO USE MED NO [facility] Mar 04, 2018 01:45 PM VA-TOBACCO USE WI 30 MIN OF WAKE UP [facility] Mar 04, 2018 01:45 PM VA-TOBACCO USER EVERY DAY [facility] Apr 22, 2017 10:01 AM CURRENT TOBACCO USER [facility] Apr 16, 2016 09:52 AM CURRENT TOBACCO USER [facility] July 26, 2014 09:08 AM CURRENT TOBACCO USER [facility] Dec 31, 2013 10:06 AM CURRENT TOBACCO USER [facility] Sep 05, 2012 09:27 AM CURRENT TOBACCO USER [facility] Nov 25, 2011 09:12 AM CURRENT TOBACCO USER [facility] Feb 08, 2011 10:04 AM CURRENT TOBACCO USER [facility] May 01, 2010 10:24 AM CURRENT TOBACCO USER [facility] Jul 03, 2009 08:42 AM CURRENT TOBACCO USER [facility] Encounter Notes: All associated encounter notes This section contains the clinical notes associated to the Encounter. Date/Time Encounter Note(s) Provider Source Jun 27, 2023 07:54 AM NONVA NOTE: LOCAL TITLE: COMMUNITY CARE-REQUEST FOR SERVICE NOTE STANDARD TITLE: NONVA NOTE DATE OF NOTE: JUN 27, 2023@07:54 ENTRY DATE: JUN 27, 2023@07:54:30 AUTHOR: ARMANDO JACKSON COSIGNER: URGENCY: STATUS: COMPLETED PACT: Please address Referral for additional services was received from patient's Chiropractic Provider. Please see RFAS and notes uploaded to Chiropractic, Consult #: [id number] Authorization 07/12/2022(date). [facility] has used 1/12 visits. Alerting PACT for review and placement of new consult if indicated. RFS and records uploaded to [facility] note dated 04/23/[address] new consult if clinically indicated, thank you. Please ensure plan of care is communicated to if new consult is not entered. [facility] ANIMAL THERAPIST to contact with questions regarding this care: Armando Jackson LPN /marli/ ARMANDO JACKSON LPN Staff Nurse Signed: 06/27/2023 07:55 Receipt Acknowledged By: 06/27/2023 13:01 /es/ GRACE HERNANDEZ RN Pact [place] Vessel Pilot for JOSE BULLOCK 06/27/2023 12:27 /es/ NELSON PROCTOR MD Staff Physician for ARMANDO DOS SANTOS [facility]
--- OUTSIDE RECORDS SUMMARY | 2023-08-05 14:03 | XMS_ITS | Encounter Summary ---
Author Name [facility] Organization [facility] Address [address] [place] [address] Support Name Relationship Address Phone ANTOINE SKELTON Next of Kin , RADHA [address] [place], [place] Emergency Contact , [place] ANTOINE SKELTON Next of Kin , RADHA [address] [place], [place] Emergency Contact , [place] [phone] Insurance Providers: All historical and current Section [...] AID (WNR) Aug 08, 2013 MEDICAI D [id number] DERICK SKELTON PATIENT MEDICARE (WNR) MEDICARE (M) PART A Sep 07, 2016 PART A [id number] DERICK SKELTON PATIENT Selected Encounter This section includes the information on record at [place] for the Encounter. Date/Time Encounter Type Encounter Description Reason Pro vider Source July 09, 2023 02:18 PM Outpatient Encounter COMMUNITY CARE CONSULT IHE Encounter Template Text not used by [place] Plan of Treatment: Future Appointments (+ 6 months) and Future Tests (+/- 45 days) The Plan of Treatment section includes future care activities for the patient from all [place] treatmentfacilities. This section includes future appointments and future orders which are active, pending or scheduled. Future Appointments This section includes appointments that were scheduled to occur 6 months from the date of the Encounter, up to a maximum of 20 appointments. The data comes from all [place] treatment facilities. Appointment Date/Time Appointment Type Appointme nt Facility Name July 16, 2023 09:00 AM AM[place]ULATORY [place] [facility] Sep 23, 2023 08:15 AM AM[place]ORY - [place]ONE [place] [facility] Sep 23, 2023 09:15 AM [facility] Active, Pending, and Scheduled Orders This section includes a listing of several types of active, pending, and scheduled orders, including clinic medications orders, diagnostic test orders, procedure orders and consult orders; where the start date of the order is 45 days before the date of the Encounter or 45 days after the date of theEncounter. The data comes from all [place] treatment facilities. Test Date/Time Test Type Test Details Facility Name Jun 27, 2023 12:19 PM Consult Order COMMUNITY CARE-CHIROPRACTIC Cons Predictive Maintenance Technician's Choice [facility] July 18, 2023 12:00 AM Laboratory - Chemi stry Order CBC BLOOD SP ONCE [facility] July 18, 2023 12:00 AM Laboratory - Chemi stry Order IRON GROUP SERUM SP [facility] Social History: Smoking Status (Most [...] 2022 09:15 AM VA-TOBACCO USER EVERY DAY [facility] Tobacco Use History This section includes a history of the smoking, or tobacco-related health factors, that were collected on or before the date of the Encounter. The data comes from the [place] facility where the Encounter took place. Date/Time Smoking Status/Tobacco Use Comment F acility Aug 20, 2022 09:15 AM VA-TOBACCO USE ADVICE [facility] Aug 20, 2022 09:15 AM VA-TOBACCO USE VALVE MECHANIC NO [facility] Aug 20, 2022 09:15 AM VA-TOBACCO USE MED NO [facility] Aug 20, 2022 09:15 AM VA-TOBACCO USE WI 30 MIN OF WAKE UP [facility] Aug 20, 2022 09:15 AM VA-TOBACCO USER EVERY DAY [facility] Sep 12, 2021 09:15 AM VA-TOBACCO USE 30 YEARS OR MORE [facility] Sep 12, 2021 09:15 AM VA-TOBACCO USE ADVICE [facility] Sep 12, 2021 09:15 AM VA-TOBACCO USE VALVE MECHANIC NO [facility] Sep 12, 2021 09:15 AM VA-TOBACCO USE MED NO [facility] Sep 12, 2021 09:15 AM VA-TOBACCO USE WI 30 MIN OF WAKE UP [facility] Sep 12, 2021 09:15 AM VA-TOBACCO USER EVERY DAY [facility] Sep 01, 2020 01:30 PM VA-TOBACCO DOESNT USE WI 30 MIN WAKEUP [facility] Sep 01, 2020 01:30 PM VA-TOBACCO USE 30 YEARS OR MORE [facility] Sep 01, 2020 01:30 PM VA-TOBACCO USE ADVICE [facility] Sep 01, 2020 01:30 PM VA-TOBACCO USE VALVE MECHANIC NO [facility] Sep 01, 2020 01:30 PM VA-TOBACCO USE MED NO [facility] Sep 01, 2020 01:30 PM VA-TOBACCO USER EVERY DAY [facility] Sep 27, 2019 09:35 AM VA-TOBACCO USE 30 YEARS OR MORE [facility] Sep 27, 2019 09:35 AM VA-TOBACCO USE ADVICE [facility] Sep 27, 2019 09:35 AM VA-TOBACCO USE VALVE MECHANIC NO [facility] Sep 27, 2019 09:35 AM VA-TOBACCO USE MED NO [facility] Sep 27, 2019 09:35 AM VA-TOBACCO USE WI 30 MIN OF WAKE UP [facility] Sep 27, 2019 09:35 AM VA-TOBACCO USER EVERY DAY [facility] Mar 04, 2018 01:45 PM VA-TOBACCO USE 30 YEARS OR MORE [facility] Mar 04, 2018 01:45 PM VA-TOBACCO USE ADVICE [facility] Mar 04, 2018 01:45 PM VA-TOBACCO USE VALVE MECHANIC NO [facility] Mar 04, 2018 01:45 PM VA-TOBACCO USE MED NO [facility] Mar 04, 2018 01:45 PM VA-TOBACCO USE WI 30 MIN OF WAKE UP [facility] Mar 04, 2018 01:45 PM VA-TOBACCO USER EVERY DAY [facility] Apr 22, 2017 10:01 AM CURRENT TOBACCO USER [facility] Apr 16, 2016 09:52 AM CURRENT TOBACCO USER [facility] July 26, 2014 09:08 AM CURRENT TOBACCO USER [facility] Dec 31, 2013 10:06 AM CURRENT TOBACCO USER [facility] Sep 05, 2012 09:27 AM CURRENT TOBACCO USER [facility] Nov 25, 2011 09:12 AM CURRENT TOBACCO USER [facility] Feb 08, 2011 10:04 AM CURRENT TOBACCO USER [facility] May 01, 2010 10:24 AM CURRENT TOBACCO USER [facility] Jul 03, 2009 08:42 AM CURRENT TOBACCO USER [facility] Encounter Notes: All associated encounter notes This section contains the clinical notes associated to the Encounter. Date/Time Encounter Note(s) Provider Source July 09, 2023 02:18 PM NONVA NOTE: LOCAL TITLE: COMMUNITY CARE PRE-AUTH LETTER (AUTOPRINT) STANDARD TITLE: NONVA NOTE DATE OF NOTE: JULY 09, 2023@14:18 ENTRY DATE: JULY 09, 2023@14:18:14 AUTHOR: ANDREW CASTELLANOS COSIGNER: URGENCY: STATUS: COMPLETED July FRANCES SKELTON [address] [place], [place] [address] Dear FRANCES SKELTON, Your VA provider has referred you to a provider within the community for care. Your medical care for CLAIMS TECHNICIAN has been authorized with the community care provider listed below. DO NOT REPORT TO THE [place] MEDICAL WILLET Provider info: Care has been approved for the following vendor: Office name, address, and phone number: [facility] [address] [place] [id number] PH: [phone] Please contact the identified provider to schedule your community appointment. If you need assistance with this appointment, please call your facility community care office [facility] Office of Community Care at [phone] during the hours of 8:30AM - 3:00PM. Please follow up with your local [facility] community care office once this is scheduled. This step is needed to ensure your referral duration is maximized and the [place] has accurate referral information for billing purposes. Authorization Number: [id number] Referral Issue Date: Jun Expiration Date: Aug (subject to change based on first appointment) If you are unable to schedule this appointment or the appointment is no longer needed, please contact the community provider above for notification/rescheduling and then call the [facility] Office of Community Care at [phone] during the hours of 8:30AM - 3:00PM. If you need additional care/services not mentioned above or your authorization has and additional care is needed, please contact your primary care provider for a new referral. To review all care/service(s) approved under your referral, please go to the following link: [facility]([email or web address]) Co-Payments: If you are required to pay a VA co-payment, you will be billed by the VA for each authorized visit that you attend. However, you are NOT REQUIRED to make co-payments to a community provider. Thank you for the opportunity to serve you. Sincerely, [place] Community Care (VACC) /marli/ ANDREW SANCHEZ Signed: 07/09/2023 14:19 ANDREW CASTELLANOS [facility]
--- OUTSIDE RECORDS SUMMARY | 2023-08-05 14:03 | XMS_ITS | Encounter Summary ---
Author Name [facility] Organization [facility] Address [address] [place] [address] Support Name Relationship Address Phone ANTOINE SKELTON Next of Kin , RADHA [address] [place] Emergency Contact , [place] ANTOINE SKELTON Next of Kin , RADHA [address] KATHY, CARIE Emergency Contact , [place] [phone] Insurance Providers: All historical and current Section [...] AID (WNR) Aug 08, 2013 MEDICAI D [id number] DERICK SKELTON PATIENT MEDICARE (WNR) MEDICARE (M) PART A Sep 07, 2016 PART A [id number] DERICK SKELTON PATIENT Selected Encounter This section includes the information on record at [place] for the Encounter. Date/Time Encounter Type Encounter Description Reason Provider Source July 16, 2023 09:00 AM HC PRO PHONE CALL 5-10 MIN TELEPHONE ICD-10-CM F33.1 Major depressive disorder, recurrent, moderate MAYNARD,HUSAM Sancho Gillian Encounter Template Text not used by [place] Assessments - Encounter Diagnoses This section includes the primary and secondary diagnoses documented for the Encounter. Date/Time Primary/Secondary Diagnosis Diagnosis Name Provider Source July 16, 2023 09:00 AM PRIMARY Major depressive disorder, recurrent, moderate HUSAM MAYNARD V [facility] July 16, 2023 09:00 AM SECONDARY Post-traumatic stress disorder, chronic HUSAM MAYNARD V [facility] Plan of Treatment: Future Appointments (+ 6 months) and Future Tests (+/- 45 days) The Plan of Treatment section includes future care activities for the patient from all [place] [facility] This section includes future appointments and future orders which are active, pending or scheduled. Future Appointments This section includes appointments that were scheduled to occur 6 months from the date of the Encounter, up to a maximum of 20 appointments. The data comes from all [facility]. Appointment Date/Time Appointment Type Appointme nt Facility Name Sep 23, 2023 08:15 AM AM[place]ULATORY - NONE [place] [facility] Sep 23, 2023 09:15 AM AMBULATORY - MEDICINE [facility] [facility] Active, Pending, and Scheduled Orders This section includes a listing of several types of active, pending, and scheduled orders, including clinic medications orders, diagnostic test orders, procedure orders and consult orders; where the start date of the order is 45 days before the date of the Encounter or 45 days after the date of theEncounter. The data comes from all [facility]. Test Date/Time Test Type Test Details Facility Name Jun 27, 2023 12:19 PM Consult Order COMMUNITY CARE-CHIROPRACTIC Cons Order Entry Administrator's Choice [facility] July 18, 2023 12:00 AM Laboratory - Chemi stry Order IRON GROUP SERUM SP [facility] July 18, 2023 12:00 AM Laboratory - Chemi stry Order CBC BLOOD SP ONCE [facility] Social History: Smoking Status (Most [...] 2022 09:15 AM VA-TOBACCO USER EVERY DAY [facility] Tobacco Use History This section includes a history of the smoking, or tobacco-related health factors, that were collected on or before the date of the Encounter. The data comes from the [place] facility where the Encounter took place. Date/Time Smoking Status/Tobacco Use Comment F acility Aug 20, 2022 09:15 AM VA-TOBACCO USE ADVICE [facility] Aug 20, 2022 09:15 AM VA-TOBACCO USE APPLICATIONS ENGINEERING MANAGER NO [facility] Aug 20, 2022 09:15 AM VA-TOBACCO USE MED NO [facility] Aug 20, 2022 09:15 AM VA-TOBACCO USE [place] 30 MIN OF WAKE UP [facility] Aug 20, 2022 09:15 AM VA-TOBACCO USER EVERY DAY [facility] Sep 12, 2021 09:15 AM VA-TOBACCO USE 30 YEARS OR MORE [facility] Sep 12, 2021 09:15 AM VA-TOBACCO USE ADVICE [facility] Sep 12, 2021 09:15 AM VA-TOBACCO USE APPLICATIONS ENGINEERING MANAGER NO [facility] Sep 12, 2021 09:15 AM VA-TOBACCO USE MED NO [facility] Sep 12, 2021 09:15 AM VA-TOBACCO USE WI 30 MIN OF WAKE UP [facility] Sep 12, 2021 09:15 AM VA-TOBACCO USER EVERY DAY [facility] Sep 01, 2020 01:30 PM VA-TOBACCO DOESNT USE WI 30 MIN WAKEUP [facility] Sep 01, 2020 01:30 PM VA-TOBACCO USE 30 YEARS OR MORE [facility] Sep 01, 2020 01:30 PM VA-TOBACCO USE ADVICE [facility] Sep 01, 2020 01:30 PM VA-TOBACCO USE APPLICATIONS ENGINEERING MANAGER NO [facility] Sep 01, 2020 01:30 PM VA-TOBACCO USE MED NO [facility] Sep 01, 2020 01:30 PM VA-TOBACCO USER EVERY DAY [facility] Sep 27, 2019 09:35 AM VA-TOBACCO USE 30 YEARS OR MORE [facility] Sep 27, 2019 09:35 AM VA-TOBACCO USE ADVICE [facility] Sep 27, 2019 09:35 AM VA-TOBACCO USE APPLICATIONS ENGINEERING MANAGER NO [facility] Sep 27, 2019 09:35 AM VA-TOBACCO USE MED NO [facility] Sep 27, 2019 09:35 AM VA-TOBACCO USE WI 30 MIN OF WAKE UP [facility] Sep 27, 2019 09:35 AM VA-TOBACCO USER EVERY DAY [facility] Mar 04, 2018 01:45 PM VA-TOBACCO USE 30 YEARS OR MORE [facility] Mar 04, 2018 01:45 PM VA-TOBACCO USE ADVICE [facility] Mar 04, 2018 01:45 PM VA-TOBACCO USE APPLICATIONS ENGINEERING MANAGER NO [facility] Mar 04, 2018 01:45 PM VA-TOBACCO USE MED NO [facility] Mar 04, 2018 01:45 PM VA-TOBACCO USE WI 30 MIN OF WAKE UP [facility] Mar 04, 2018 01:45 PM VA-TOBACCO USER EVERY DAY [facility] Apr 22, 2017 10:01 AM CURRENT TOBACCO USER [facility] Apr 16, 2016 09:52 AM CURRENT TOBACCO USER [facility] July 26, 2014 09:08 AM CURRENT TOBACCO USER [facility] Dec 31, 2013 10:06 AM CURRENT TOBACCO USER [facility] Sep 05, 2012 09:27 AM CURRENT TOBACCO USER [facility] Nov 25, 2011 09:12 AM CURRENT TOBACCO USER [facility] Feb 08, 2011 10:04 AM CURRENT TOBACCO USER [facility] May 01, 2010 10:24 AM CURRENT TOBACCO USER [facility] Jul 03, 2009 08:42 AM CURRENT TOBACCO USER [facility] Encounter Notes: All associated encounter notes This section contains the clinical notes associated to the Encounter. Date/Time Encounter Note(s) Provider Source July 16, 2023 03:17 PM MENTAL HEALTH NOTE : LOCAL TITLE: MH PROGRESS NOTE STANDARD TITLE: MENTAL HEALTH NOTE DATE OF NOTE: JULY 16, 2023@15:17 ENTRY DATE: JULY 16, 2023@15:17:51 AUTHOR: HUSAM MAYNARD V EXP COSIGNER: URGENCY: STATUS: COMPLETED Pt not seen because of scheduling mixup. Called home phone but AM full. Will reschedule next available appt via phone or VVC> /es/ Husam Maynard M.D., Ph.D. STAFF PSYCHIATRIST Signed: 07/16/2023 15:20 HUSAM MAYNARD V [facility]
--- OUTSIDE RECORDS SUMMARY | 2023-08-05 14:04 | XMS_ITS | Encounter Summary ---
Author Name Department of [facility] Organization Department of [facility] Address [address] [place] [address] Support Name Relationship Address Phone ANTOINE SKELTON Next of Kin , RADHA [address] [place], [place] Emergency Contact , [place] ANTOINE SKELTON Next of Kin , [place] [address] [place], [place] Emergency Contact , [place] Insurance Providers: All historical and current Section [...] AID (WNR) Aug 08, 2013 MEDICAI D [id number] [phone] DERICK SKELTON PATIENT MEDICARE (WNR) MEDICARE (M) PART A Sep 07, 2016 PART A [id number] DERICK SKELTON PATIENT Selected Encounter This section includes the information on record at ID for the Encounter. Date/Time Encounter Type Encounter Description Reason Pro vider Source July 16, 2023 03:57 PM Outpatient Encounter TELEPHONE [facility] Encounter Template Text not used by ID Plan of Treatment: Future Appointments (+ 6 months) and Future Tests (+/- 45 days) The Plan of Treatment section includes future care activities for the patient from all ID treatmentfacilities. This section includes future appointments and future orders which are active, pending or scheduled. Future Appointments This section includes appointments that were scheduled to occur 6 months from the date of the Encounter, up to a maximum of 20 appointments. The data comes from all ID treatment facilities. Appointment Date/Time Appointment Type Appointme nt Facility Name Sep 23, 2023 08:15 AM AMBULATORY - NONE ANDRA CARMONA [facility] Sep 23, 2023 09:15 AM AMBULATORY - MEDICINE TONY WILKERSON [facility] Active, Pending, and Scheduled Orders This section includes a listing of several types of active, pending, and scheduled orders, including clinic medications orders, diagnostic test orders, procedure orders and consult orders; where the start date of the order is 45 days before the date of the Encounter or 45 days after the date of theEncounter. The data comes from all ID treatment facilities. Test Date/Time Test Type Test Details Facility Name Jun 27, 2023 12:19 PM Consult Order COMMUNITY CARE-CHIROPRACTIC Cons Objects Conservator's Choice [facility] July 18, 2023 12:00 AM Laboratory - Chemi stry Order CBC BLOOD SP ONCE [facility] July 18, 2023 12:00 AM Laboratory - Chemi stry Order IRON GROUP SERUM SP [facility] Social History: Smoking Status (Most current) [...] 2022 09:15 AM VA-TOBACCO USER EVERY DAY [facility] Tobacco Use History This section includes a history of the smoking, or tobacco-related health factors, that were collected on or before the date of the Encounter. The data comes from the ID facility where the Encounter took place. Date/Time Smoking Status/Tobacco Use Comment F acility Aug 20, 2022 09:15 AM VA-TOBACCO USE ADVICE [facility] Aug 20, 2022 09:15 AM VA-TOBACCO USE MARKETING COMMUNICATIONS LEADER NO [facility] Aug 20, 2022 09:15 AM VA-TOBACCO USE MED NO [facility] Aug 20, 2022 09:15 AM VA-TOBACCO USE WI 30 MIN OF WAKE UP [facility] Aug 20, 2022 09:15 AM VA-TOBACCO USER EVERY DAY [facility] Sep 12, 2021 09:15 AM VA-TOBACCO USE 30 YEARS OR MORE [facility] Sep 12, 2021 09:15 AM VA-TOBACCO USE ADVICE [facility] Sep 12, 2021 09:15 AM VA-TOBACCO USE MARKETING COMMUNICATIONS LEADER NO [facility] Sep 12, 2021 09:15 AM VA-TOBACCO USE MED NO [facility] Sep 12, 2021 09:15 AM VA-TOBACCO USE WI 30 MIN OF WAKE UP [facility] Sep 12, 2021 09:15 AM VA-TOBACCO USER EVERY DAY [facility] Sep 01, 2020 01:30 PM VA-TOBACCO DOESNT USE WI 30 MIN WAKEUP [facility] Sep 01, 2020 01:30 PM VA-TOBACCO USE 30 YEARS OR MORE [facility] Sep 01, 2020 01:30 PM VA-TOBACCO USE ADVICE [facility] Sep 01, 2020 01:30 PM VA-TOBACCO USE MARKETING COMMUNICATIONS LEADER NO [facility] Sep 01, 2020 01:30 PM VA-TOBACCO USE MED NO [facility] Sep 01, 2020 01:30 PM VA-TOBACCO USER EVERY DAY [facility] Sep 27, 2019 09:35 AM VA-TOBACCO USE 30 YEARS OR MORE [facility] Sep 27, 2019 09:35 AM VA-TOBACCO USE ADVICE [facility] Sep 27, 2019 09:35 AM VA-TOBACCO USE MARKETING COMMUNICATIONS LEADER NO [facility] Sep 27, 2019 09:35 AM VA-TOBACCO USE MED NO [facility] Sep 27, 2019 09:35 AM VA-TOBACCO USE WI 30 MIN OF WAKE UP [facility] Sep 27, 2019 09:35 AM VA-TOBACCO USER EVERY DAY [facility] Mar 04, 2018 01:45 PM VA-TOBACCO USE 30 YEARS OR MORE [facility] Mar 04, 2018 01:45 PM VA-TOBACCO USE ADVICE [facility] Mar 04, 2018 01:45 PM VA-TOBACCO USE MARKETING COMMUNICATIONS LEADER NO [facility] Mar 04, 2018 01:45 PM VA-TOBACCO USE MED NO [facility] Mar 04, 2018 01:45 PM VA-TOBACCO USE WI 30 MIN OF WAKE UP [facility] Mar 04, 2018 01:45 PM VA-TOBACCO USER EVERY DAY [facility] Apr 22, 2017 10:01 AM CURRENT TOBACCO USER [facility] Apr 16, 2016 09:52 AM CURRENT TOBACCO USER [facility] July 26, 2014 09:08 AM CURRENT TOBACCO USER [facility] Dec 31, 2013 10:06 AM CURRENT TOBACCO USER [facility] Sep 05, 2012 09:27 AM CURRENT TOBACCO USER [facility] Nov 25, 2011 09:12 AM CURRENT TOBACCO USER [facility] Feb 08, 2011 10:04 AM CURRENT TOBACCO USER [facility] May 01, 2010 10:24 AM CURRENT TOBACCO USER [facility] Jul 03, 2009 08:42 AM CURRENT TOBACCO USER [facility] Encounter Notes: All associated encounter notes This section contains the clinical notes associated to the Encounter. Date/Time Encounter Note(s) Provider Source July 16, 2023 03:57 PM REPORT OF CONTACT: LOCAL TITLE: APPOINTMENT SCHEDULING NOTE STANDARD TITLE: REPORT OF CONTACT DATE OF NOTE: JULY 16, 2023@15:57 ENTRY DATE: JULY 16, 2023@15:57:49 AUTHOR: SHARRI GARZA EXP COSIGNER: URGENCY: STATUS: COMPLETED Attempted to schedule Return to clinic (RTC) Contact attempt made to [place] 1st attempt Telephone 2nd attempt Letter - Sent letter by regular [place] mail to address on file: [place] [address], [place] [address] Disposition order request after July Unable to leave voice mail due to being full. Letter sent out. If [place] calls back, schedule appt for: [facility] Phone [place] 30min tele appt /marli/ SHARRI GARZA Signed: 07/16/2023 15:59 SHARRI GARZA [facility]
--- OUTSIDE RECORDS SUMMARY | 2023-08-05 14:04 | XMS_ITS | Encounter Summary ---
Author Name [facility] Organization [facility] of [facility] Address [address] [place] [address] Support Name Relationship Address Phone ANTOINE SKELTON Next of Kin , RADHA [address] [place], [place] Emergency Contact , [place] [phone] ANTOINE SKELTON Next of Kin , [place] [address] [place], [place] Emergency Contact , [place] [phone] Insurance Providers: All historical and current Section [...] AID (WNR) Aug 08, 2013 MEDICAI D [id number] DERICK SKELTON PATIENT MEDICARE (WNR) MEDICARE (M) PART A Sep 07, 2016 PART A [id number] DERICK SKELTON PATIENT Selected Encounter This section includes the information on record at OR for the Encounter. Date/Time Encounter Type Encounter Description Reason Pro vider Source July 17, 2023 12:17 PM Outpatient Encounter TELEPHONE [facility] Encounter Template Text not used by OR Plan of Treatment: Future Appointments (+ 6 months) and Future Tests (+/- 45 days) The Plan of Treatment section includes future care activities for the patient from all OR treatmentfacilities. This section includes future appointments and future orders which are active, pending or scheduled. Future Appointments This section includes appointments that were scheduled to occur 6 months from the date of the Encounter, up to a maximum of 20 appointments. The data comes from all [place] treatment facilities. Appointment Date/Time Appointment Type Appointme nt Facility Name Sep 23, 2023 08:15 AM AMBULATORY - NONE ANDRA CARMONA [facility] Sep 23, 2023 09:15 AM AMBULATORY - MEDICINE TONY WILKERSON [facility] Active, Pending, and Scheduled Orders This section includes a listing of several types of active, pending, and scheduled orders, including clinic medications orders, diagnostic test orders, procedure orders and consult orders; where the start date of the order is 45 days before the date of the Encounter or 45 days after the date of theEncounter. The data comes from all [place] treatment facilities. Test Date/Time Test Type Test Details Facility Name Jun 27, 2023 12:19 PM Consult Order COMMUNITY CARE-CHIROPRACTIC Cons School Commissioner's Choice [facility] July 18, 2023 12:00 AM Laboratory - Chemi stry Order CBC BLOOD SP ONCE [facility] July 18, 2023 12:00 AM Laboratory - Chemi stry Order IRON GROUP SERUM SP [facility] Social History: Smoking Status (Most current) and Tobacco Use (All prior to encounter date) This section includes the most current, and the historical, smoking and tobacco- related health factors from the OR facility where the Encounter took place. Current Smoking Status This section includes the most current smoking, or tobacco-related health factor, from the OR facility where the Encounter took place. Date/Time Current Smoking Status Comment Facil ity Aug 20, 2022 09:15 AM VA-TOBACCO USER EVERY DAY [facility] Tobacco Use History This section includes a history of the smoking, or tobacco-related health factors, that were collected on or before the date of the Encounter. The data comes from the OR facility where the Encounter took place. Date/Time Smoking Status/Tobacco Use Comment F acility Aug 20, 2022 09:15 AM VA-TOBACCO USE ADVICE [facility] Aug 20, 2022 09:15 AM VA-TOBACCO USE AGRICULTURAL TECHNICIAN NO [facility] Aug 20, 2022 09:15 AM VA-TOBACCO USE MED NO [facility] Aug 20, 2022 09:15 AM VA-TOBACCO USE WI 30 MIN OF WAKE UP [facility] Aug 20, 2022 09:15 AM VA-TOBACCO USER EVERY DAY [facility] Sep 12, 2021 09:15 AM VA-TOBACCO USE 30 YEARS OR MORE [facility] Sep 12, 2021 09:15 AM VA-TOBACCO USE ADVICE [facility] Sep 12, 2021 09:15 AM VA-TOBACCO USE AGRICULTURAL TECHNICIAN NO [facility] Sep 12, 2021 09:15 AM VA-TOBACCO USE MED NO [facility] Sep 12, 2021 09:15 AM VA-TOBACCO USE WI 30 MIN OF WAKE UP [facility] Sep 12, 2021 09:15 AM VA-TOBACCO USER EVERY DAY [facility] Sep 01, 2020 01:30 PM VA-TOBACCO DOESNT USE WI 30 MIN WAKEUP [facility] Sep 01, 2020 01:30 PM VA-TOBACCO USE 30 YEARS OR MORE [facility] Sep 01, 2020 01:30 PM VA-TOBACCO USE ADVICE [facility] Sep 01, 2020 01:30 PM VA-TOBACCO USE AGRICULTURAL TECHNICIAN NO [facility] Sep 01, 2020 01:30 PM VA-TOBACCO USE MED NO [facility] Sep 01, 2020 01:30 PM VA-TOBACCO USER EVERY DAY [facility] Sep 27, 2019 09:35 AM VA-TOBACCO USE 30 YEARS OR MORE [facility] Sep 27, 2019 09:35 AM VA-TOBACCO USE ADVICE [facility] Sep 27, 2019 09:35 AM VA-TOBACCO USE AGRICULTURAL TECHNICIAN NO [facility] Sep 27, 2019 09:35 AM VA-TOBACCO USE MED NO [facility] Sep 27, 2019 09:35 AM VA-TOBACCO USE WI 30 MIN OF WAKE UP [facility] Sep 27, 2019 09:35 AM VA-TOBACCO USER EVERY DAY [facility] Mar 04, 2018 01:45 PM VA-TOBACCO USE 30 YEARS OR MORE [facility] Mar 04, 2018 01:45 PM VA-TOBACCO USE ADVICE [facility] Mar 04, 2018 01:45 PM VA-TOBACCO USE AGRICULTURAL TECHNICIAN NO [facility] Mar 04, 2018 01:45 PM VA-TOBACCO USE MED NO [facility] Mar 04, 2018 01:45 PM VA-TOBACCO USE WI 30 MIN OF WAKE UP [facility] Mar 04, 2018 01:45 PM VA-TOBACCO USER EVERY DAY [facility] Apr 22, 2017 10:01 AM CURRENT TOBACCO USER [facility] Apr 16, 2016 09:52 AM CURRENT TOBACCO USER [facility] July 26, 2014 09:08 AM CURRENT TOBACCO USER [facility] Dec 31, 2013 10:06 AM CURRENT TOBACCO USER [facility] Sep 05, 2012 09:27 AM CURRENT TOBACCO USER [facility] Nov 25, 2011 09:12 AM CURRENT TOBACCO USER [facility] Feb 08, 2011 10:04 AM CURRENT TOBACCO USER [facility] May 01, 2010 10:24 AM CURRENT TOBACCO USER [facility] Jul 03, 2009 08:42 AM CURRENT TOBACCO USER [facility] Encounter Notes: All associated encounter notes This section contains the clinical notes associated to the Encounter. Date/Time Encounter Note(s) Provider Source July 18, 2023 10:31 AM ADDENDUM: LOCAL TITLE: Addendum STANDARD TITLE: ADDENDUM DATE OF NOTE: JULY 18, 2023@10:31:16 ENTRY DATE: JULY 18, 2023@10:31:17 AUTHOR: JACKIE PROCTOR EXP COSIGNER: URGENCY: STATUS: COMPLETED [place] was called on 07/15 along with letter sent and also called on 07/16. This is the FINAL Attempt- Called [place] to (re)schedule appointment with provider. No answer, voicemail box is full and unable to leave message. No further attempts will be made to contact . Alerting provider. /marli/ JACKIE PROCTOR Signed: 07/18/2023 10:32 Receipt Acknowledged By: 07/21/2023 08:13 /marli/ OCTAVIANO HEWITT RN REGISTERED NURSE 07/22/2023 16:51 /marli/ Carola [place] M.D., Ph.D. STAFF PSYCHIATRIST --- Original Document --- 07/17/23 APPOINTMENT SCHEDULING NOTE: Attempted to schedule Return to clinic (RTC) Contact attempt made to [place] 1st attempt Telephone 2nd attempt Letter - Sent letter by regular [place] mail to address on file: [place] [address], [place] [address] Disposition order request after July Left message on voice mail to call back to this number [phone] If calls back, schedule appt for: [facility] PHONE CAESAR /marli/ MARVEL PITTS BODY FITTER Signed: 07/17/2023 12:18 JACKIE PROCTOR [facility] July 17, 2023 12:17 PM REPORT OF CONTACT: LOCAL TITLE: APPOINTMENT SCHEDULING NOTE STANDARD TITLE: REPORT OF CONTACT DATE OF NOTE: JULY 17, 2023@12:17 ENTRY DATE: JULY 17, 2023@12:17:23 AUTHOR: MARVEL PITTS COSIGNER: URGENCY: STATUS: COMPLETED APPOINTMENT SCHEDULING NOTE Has ADDENDA Attempted to schedule Return to clinic (RTC) Contact attempt made to 1st attempt Telephone 2nd attempt Letter - Sent letter by regular [place] mail to address on file: [place] [address], [place] [address] Disposition order request after July Left message on voice mail to call back to this number [phone] If calls back, schedule appt for: [facility] PHONE CAESAR /marli/ MARVEL PITTS BODY FITTER Signed: 07/17/2023 12:18 07/18/2023 ADDENDUM STATUS: COMPLETED was called on 07/15 along with letter sent and also called on 07/16. This is the FINAL Attempt- Called to (re)schedule appointment with provider. No answer, voicemail box is full and unable to leave message. No further attempts will be made to contact [place]. Alerting provider. /marli/ JACKIE PROCTOR Signed: 07/18/2023 10:32 Receipt Acknowledged By: * AWAITING SIGNATURE * OCTAVIANO HEWITT * AWAITING SIGNATURE * CAROLA ALICEA MICHELE A [facility]
--- OUTSIDE RECORDS SUMMARY | 2023-08-05 14:05 | XMS_ITS | Encounter Summary ---
Author Name [facility] of [facility] Organization [facility] of [facility] Address [address] [place] [address] Support Name Relationship Address Phone ANTOINE SKELTON Next of Kin , RADHA [address] CARIE CHAVEZ Emergency Contact , RADHA [phone] ANTOINE SKELTON Next of Kin , RADHA [address] KATHY CARIE Emergency Contact , [place] [phone] Insurance Providers: All historical and current Section [...] AID (WNR) Aug 08, 2013 MEDICAI D [id number] DERICK SKELTON PATIENT MEDICARE (WNR) MEDICARE (M) PART A Sep 07, 2016 PART A [id number] DERICK SKELTON PATIENT Selected Encounter This section includes the information on record at [place] for the Encounter. Date/Time Encounter Type Encounter Description Reason Provider Source Oct 21, 2022 07:56 AM Outpatient Encounter PM&RS PHYSICIAN ICD-10-CM R26.9 Unspecified abnormalities of gait and mobility MELISSA EL [facility] Encounter Template Text not used by [place] Assessments - Encounter Diagnoses This section includes the primary and secondary diagnoses documented for the Encounter. Date/Time Primary/Secondary Diagnosis Diagnosis Name Provider Source Oct 21, 2022 08:09 AM PRIMARY Unspecified abnormalities of gait and mobility MELISSA EL [facility] Plan of Treatment: Future Appointments (+ 6 months) and Future Tests (+/- 45 days) The Plan of Treatment section includes future care activities for the patient from [facility] [place] [facility] This section includes future appointments and future orders which are active, pending or scheduled. Future Appointments This section includes appointments that were scheduled to occur 6 months from the date of the Encounter, up to a maximum of 20 appointments. The data comes from all [facility]. Appointment Date/Time Appointment Type Appointme nt Facility Name Oct 23, 2022 07:00 AM AMBULATORY - NONE [facility] Oct 28, 2022 05:00 PM AMBULATORY - REHAB MEDICIN E [facility] Nov 01, 2022 09:00 AM AMBULATORY - REHAB MEDICIN E [facility] Nov 13, 2022 09:00 AM AMBULATORY [place] [facility] Nov 20, 2022 08:00 AM AM[place] [facility] Dec 05, 2022 10:15 AM AMBULATORY - SURGERY [facility] Dec 30, 2022 10:15 AM AMBULATORY - SURGERY [facility] Mar 05, 2023 09:00 AM AM[place]UL[place]ORY [place] [facility] Mar 12, 2023 09:00 AM AMBUL[place]ORY [place] [facility] Apr 01, 2023 09:15 AM AMBULATORY - NONE [facility] Apr 01, 2023 10:15 AM [facility] Apr 08, 2023 09:30 AM AMBULATORY - MEDICINE [facility] Apr 22, 2023 07:00 AM AMBULATORY - NONE [facility] Social History: Smoking Status (Most current) [...] 2022 09:15 AM VA-TOBACCO USER EVERY DAY [facility] Tobacco Use History This section includes a history of the smoking, or tobacco-related health factors, that were collected on or before the date of the Encounter. The data comes from the [place] facility where the Encounter took place. Date/Time Smoking Status/Tobacco Use Comment F acility Aug 20, 2022 09:15 AM VA-TOBACCO USE ADVICE [facility] Aug 20, 2022 09:15 AM VA-TOBACCO USE FBI INVESTIGATOR NO [facility] Aug 20, 2022 09:15 AM VA-TOBACCO USE MED NO [facility] Aug 20, 2022 09:15 AM VA-TOBACCO USE [place] 30 MIN OF WAKE UP [facility] Aug 20, 2022 09:15 AM VA-TOBACCO USER EVERY DAY [facility] Sep 12, 2021 09:15 AM VA-TOBACCO USE 30 YEARS OR MORE [facility] Sep 12, 2021 09:15 AM VA-TOBACCO USE ADVICE [facility] Sep 12, 2021 09:15 AM VA-TOBACCO USE FBI INVESTIGATOR NO [facility] Sep 12, 2021 09:15 AM VA-TOBACCO USE MED NO [facility] Sep 12, 2021 09:15 AM VA-TOBACCO USE [place] 30 MIN OF WAKE UP [facility] Sep 12, 2021 09:15 AM VA-TOBACCO USER EVERY DAY [facility] Sep 01, 2020 01:30 PM VA-TOBACCO DOESNT USE [place] 30 MIN WAKEUP [facility] Sep 01, 2020 01:30 PM VA-TOBACCO USE 30 YEARS OR MORE [facility] Sep 01, 2020 01:30 PM VA-TOBACCO USE ADVICE [facility] Sep 01, 2020 01:30 PM VA-TOBACCO USE FBI INVESTIGATOR NO [facility] Sep 01, 2020 01:30 PM VA-TOBACCO USE MED NO [facility] Sep 01, 2020 01:30 PM VA-TOBACCO USER EVERY DAY [facility] Sep 27, 2019 09:35 AM VA-TOBACCO USE 30 YEARS OR MORE [facility] Sep 27, 2019 09:35 AM VA-TOBACCO USE ADVICE [facility] Sep 27, 2019 09:35 AM VA-TOBACCO USE FBI INVESTIGATOR NO [facility] Sep 27, 2019 09:35 AM VA-TOBACCO USE MED NO [facility] Sep 27, 2019 09:35 AM VA-TOBACCO USE [place] 30 MIN OF WAKE UP [facility] Sep 27, 2019 09:35 AM VA-TOBACCO USER EVERY DAY [facility] Mar 04, 2018 01:45 PM VA-TOBACCO USE 30 YEARS OR MORE [facility] Mar 04, 2018 01:45 PM VA-TOBACCO USE ADVICE [facility] Mar 04, 2018 01:45 PM VA-TOBACCO USE FBI INVESTIGATOR NO [facility] Mar 04, 2018 01:45 PM VA-TOBACCO USE MED NO [facility] Mar 04, 2018 01:45 PM VA-TOBACCO USE [place] 30 MIN OF WAKE UP [facility] Mar 04, 2018 01:45 PM VA-TOBACCO USER EVERY DAY [facility] Apr 22, 2017 10:01 AM CURRENT TOBACCO USER [facility] Apr 16, 2016 09:52 AM CURRENT TOBACCO USER [facility] July 26, 2014 09:08 AM CURRENT TOBACCO USER [facility] Dec 31, 2013 10:06 AM CURRENT TOBACCO USER [facility] Sep 05, 2012 09:27 AM CURRENT TOBACCO USER [facility] Nov 25, 2011 09:12 AM CURRENT TOBACCO USER [facility] Feb 08, 2011 10:04 AM CURRENT TOBACCO USER [facility] May 01, 2010 10:24 AM CURRENT TOBACCO USER [facility] Jul 03, 2009 08:42 AM CURRENT TOBACCO USER [facility] Radiology Reports: +/- 30 days of [...] the Encounter. The data comes from all [facility] facilities. Date/Time Radiology Report Provider Source Oct 16, 2022 01:43 PM DXA BONE DENSITY: FRANCES SKELTON [id number] -1950 M Exm Date: OCT 16, 2022@13:43 Req Phys: KAREN DOVE Pat Loc: [facility] PACT CHANTEL 4D (Req'g Loc) Img Loc: NUC MED Service: Unknown (Case [id number] COMPLETE) DXA BONE DENSITY AXIAL (NM Detailed) CPT:15965 Reason for Study: eval for low bone density (Case [id number] COMPLETE) TRABECULAR BONE SCORE (TBS) W/ IN(NM Detailed) CPT:29539 Clinical History: [facility] IS NOT under investigation for COVID-19 or is COVID-19 negative Frequent falls, h/o EtOH and cigarette use, eval for low bone density Responsible provider name and phone number to notify for critical findings if other than user placing the order and pager listed below: User placing orders pager: [phone] LAST CREATININE 1.2 (08/20/22) Report Status: Verified Date Reported: OCT 21, 2022 Date Verified: OCT 21, 2022 Preschool Principal E-Sig:/ES/SIBYLL GOETZE, MD Report: EXAMINATION: DXA Bone Density Scan INDICATION: Evaluate for low bone density.Frequent falls. History of alcohol and cigarette use. CLINICAL INFORMATION: Smoking history, drinking three or more alcoholic per day. 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 Model: Horizon A. TECHNIQUE/LIMITATIONS: The technical quality of the study is good. RESULTS: Lumbar Spine (L1-L4): BMD: 1.070 g/cm2. T-score: 0.2. Z-score: 0.7. Femoral Neck: Left. BMD: 0.707 g/cm2. T-score: -1.3. Z-score: -0.4. Total Hip: Left. BMD: 0.777 g/cm2. T-score: -1.4. Z-score: -1.0. FRAX 10-year Fracture Risk: Major Osteoporotic Fracture: 7.4% Hip Fracture: 3.3% Trabecular Bone Score (TBS) L1-L4: 1.425. The 10 year probability of fracture, adjusted for TBS: Major Osteoporotic Fracture: 3.7% Hip Fracture: 2.7% Impression: Diagnosis (WHO Classification): Osteopenia. I, Marquita Butterfield, have reviewed the images and report. Primary Diagnostic Code: SIGNIFICANT ABNORMALITY, ATTN NEEDED Primary Interpreting Staff: MARQUITA BUTTERFIELD MD, RADIOLOGY STAFF PHYSICIAN (Preschool Principal) Primary Interpreting Resident: ASHLEY CUNNINGHAM DO, DIRECTIONAL DRILLER /MARQUITA GONSALEZ [facility] Encounter Notes: All associated encounter notes This section contains the clinical notes associated to the Encounter. 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 He has been referred for eSNF matthias for low thresehold shower. Given his condition and diagnosis, he meets criteria for this and request is approved. Total time spent on e-consult: 5-10 min /marli/ MELISSA EL MD STAFF PHYSICIAN Signed: 10/21/2022 08:09 MELISSA EL [facility]
--- OUTSIDE RECORDS SUMMARY | 2023-08-05 14:06 | XMS_ITS | Encounter Summary ---
Author Name [facility] Organization [facility] of [facility] Address [address] [place] [address] Support Name Relationship Address Phone ANTOINE SKELTON Next of Kin , RADHA [address] MANTALWil, CARIE Emergency Contact , [place] ANTOINE SKELTON Next of Kin , RADHA [address] RANTALA, CARIE Emergency Contact , [place] Insurance Providers: [...] AID (WNR) Aug 08, 2013 MEDICAI D [id number] [phone] DERICK SKELTON PATIENT MEDICARE (WNR) MEDICARE (M) PART A Sep 07, 2016 PART A [id number] [phone] DERICK SKELTON PATIENT Selected Encounter This section includes the information on record at [place] for the Encounter. Date/Time Encounter Type Encounter Description Reason Pro vider Source Oct 21, 2022 09:00 AM Outpatient Encounter [facility] Encounter Template Text not used by [place] Plan of Treatment: Future Appointments (+ 6 months) and Future Tests (+/- 45 days) The Plan of Treatment section includes future care activities for the patient from all [place] treatmentfacilities. This section includes future appointments and future orders which are active, pending or scheduled. Future Appointments This section includes appointments that were scheduled to occur 6 months from the date of the Encounter, up to a maximum of 20 appointments. The data comes from all [place] treatment facilities. Appointment Date/Time Appointment Type Appointme nt Facility Name Oct 23, 2022 07:00 AM AMBULATORY - NONE [facility] Oct 28, 2022 05:00 PM AMBULATORY - REHAB MEDICIN E [facility] Nov 01, 2022 09:00 AM AMBULATORY - REHAB MEDICIN E [facility] Nov 13, 2022 09:00 AM AM[facility]ULATORY [facility] Nov 20, 2022 08:00 AM AMBUL[facility] Dec 05, 2022 10:15 AM AMBULATORY - SURGERY [facility] Dec 30, 2022 10:15 AM AMBULATORY - SURGERY [facility] Mar 05, 2023 09:00 AM AMBULATORY [facility]RY [facility] Mar 12, 2023 09:00 AM AMBULATORY [facility]ATRY [facility] Apr 01, 2023 09:15 AM [facility] Apr 01, 2023 10:15 AM AMBULATORY - MEDICINE [facility] Apr 08, 2023 09:30 AM [facility] Apr 22, 2023 07:00 AM AMBULATORY - NONE [facility] Social History: Smoking Status (Most current) and Tobacco Use (All prior to encounter date) This section includes the most current, and the historical, smoking and tobacco- related health factors from the [place] facility where the Encounter took place. Current Smoking Status This section includes the most current smoking, or tobacco-related health factor, from the [place] facility where the Encounter took place. Date/Time Current Smoking Status Comment Silvia ity Aug 20, 2022 09:15 AM VA-TOBACCO USER EVERY DAY [facility] Tobacco Use History This section includes a history of the smoking, or tobacco-related health factors, that were collected on or before the date of the Encounter. The data comes from the [place] facility where the Encounter took place. Date/Time Smoking Status/Tobacco Use Comment F acility Aug 20, 2022 09:15 AM VA-TOBACCO USE ADVICE 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 Aug 20, 2022 09:15 AM VA-TOBACCO USE MED NO [facility] Aug 20, 2022 09:15 AM VA-TOBACCO USE [place] 30 MIN OF WAKE UP [facility] Aug 20, 2022 09:15 AM VA-TOBACCO USER EVERY DAY [facility] Sep 12, 2021 09:15 AM VA-TOBACCO USE [address] [facility] Sep 12, 2021 09:15 AM VA-TOBACCO USE ADVICE 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 Sep 12, 2021 09:15 AM VA-TOBACCO USE MED NO [facility] Sep 12, 2021 09:15 AM VA-TOBACCO USE [place] [address] MIN [address] UP [facility] Sep 12, 2021 09:15 AM VA-TOBACCO USER EVERY DAY [facility] Sep 01, 2020 01:30 PM VA-TOBACCO DOESNT USE [place] [address] [facility] Sep 01, 2020 01:30 PM VA-TOBACCO USE [address] [facility] Sep 01, 2020 01:30 PM VA-TOBACCO USE ADVICE 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 Sep 01, 2020 01:30 PM VA-TOBACCO USE MED NO [facility] Sep 01, 2020 01:30 PM VA-TOBACCO USER EVERY DAY [facility] Sep 27, 2019 09:35 AM VA-TOBACCO USE [address] [facility] Sep 27, 2019 09:35 AM VA-TOBACCO USE ADVICE 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 Sep 27, 2019 09:35 AM VA-TOBACCO USE MED NO [facility] Sep 27, 2019 09:35 AM VA-TOBACCO USE [place] [address] UP [facility] Sep 27, 2019 09:35 AM VA-TOBACCO USER EVERY DAY [facility] Mar 04, 2018 01:45 PM VA-TOBACCO USE [address] [facility] Mar 04, 2018 01:45 PM VA-TOBACCO USE ADVICE 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 Mar 04, 2018 01:45 PM VA-TOBACCO USE MED NO [facility] Mar 04, 2018 01:45 PM VA-TOBACCO USE [place] [address] UP [facility] Mar 04, 2018 01:45 PM VA-TOBACCO USER EVERY DAY [facility] Apr 22, 2017 10:01 AM CURRENT TOBACCO USER [facility] Apr 16, 2016 09:52 AM CURRENT TOBACCO USER [facility] July 26, 2014 09:08 AM CURRENT TOBACCO USER [facility] Dec 31, 2013 10:06 AM CURRENT TOBACCO USER [facility] Sep 05, 2012 09:27 AM CURRENT TOBACCO USER [facility] Nov 25, 2011 09:12 AM CURRENT TOBACCO USER [facility] Feb 08, 2011 10:04 AM CURRENT TOBACCO USER [facility] May 01, 2010 10:24 AM CURRENT TOBACCO USER [facility] Jul 03, 2009 08:42 AM CURRENT TOBACCO USER [facility] Radiology Reports: +/- 30 days of the [...] the Encounter. The data comes from all [facility] facilities. Date/Time Radiology Report Provider Source Oct 16, 2022 01:43 PM DXA BONE DENSITY: FRANCES SKELTON [id number] -1950 M Exm Date: OCT 16, 2022@13:43 Req Phys: KAREN DOVE Pat Loc: [facility] PACT CHANTEL 4D (Req'g Loc) Img Loc: NUC MED Service: Unknown (Case [id number] COMPLETE) DXA BONE DENSITY AXIAL (NM Detailed) CPT:32607 Reason for Study: eval for low bone density (Case 1832 COMPLETE) TRABECULAR BONE SCORE (TBS) W/ IN(NM Detailed) CPT:36774 Clinical History: [facility] IS NOT under investigation for COVID-19 or is COVID-19 negative Frequent falls, h/o EtOH and cigarette use, eval for low bone density Responsible provider name and phone number to notify for critical findings if other than user placing the order and pager listed below: User placing orders pager: [phone] LAST CREATININE 1.2 (08/20/22) Report Status: Verified Date Reported: OCT 21, 2022 Date Verified: OCT 21, 2022 Advertising Operations Manager E-Sig:/ES/MARQUITA BUTTERFIELD MD Report: EXAMINATION: DXA Bone Density Scan INDICATION: Evaluate for low bone density.Frequent falls. History of alcohol and cigarette use. CLINICAL INFORMATION: Smoking history, drinking three or more alcoholic per day. PAD TUFTER: [employer]. Model: [employer]ech A. TECHNIQUE/LIMITATIONS: The technical quality of the [...] Staff: MARQUITA BUTTERFIELD MD, RADIOLOGY STAFF PHYSICIAN (Advertising Operations Manager) Primary Interpreting Resident: ASHLEY CUNNINGHAM DO, LAYUP WORKER /MARQUITA GONSALEZ [facility] Encounter Notes: All associated encounter notes This section contains the clinical notes associated to the Encounter. Date/Time Encounter Note(s) Provider Source Oct 21, 2022 10:44 AM NO SHOW NOTE: LOCAL TITLE: NO SHOW/CANCELLATION CLINIC NOTE STANDARD TITLE: NO SHOW NOTE DATE OF NOTE: OCT 21, 2022@10:44 ENTRY DATE: OCT 21, 2022@10:44:56 AUTHOR: SAROJ GARZA EXP COSIGNER: URGENCY: STATUS: COMPLETED [facility] not seen for scheduled appointment due to: No Show The did not present to the wheelchair clinic for his ADV[facility] MOBILITY appointment. OT will be happy to see him if/when he reschedules. Appointment Rescheduled: Please review patient chart and medications for renewal needs (if appropriate). /marli/ SAROJ GARZA OTR/L Signed: 10/21/2022 10:[address] [facility]
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
--- OUTSIDE RECORDS SUMMARY | 2023-08-05 14:06 | XMS_ITS | Encounter Summary ---
Author Name [facility] Organization [facility] Address [address] [place] [address] Support Name Relationship Address Phone ANTOINE SKELTON Next of Kin , RADHA [address] [place], CARIE Emergency Contact , RADHA [phone] ANTOINE SKELTON Next of Kin , RADHA [address] [place], CARIE Emergency Contact , [place] Insurance Providers: All historical and current Section [...] AID (WNR) Aug 08, 2013 MEDICAI D [id number] DERICK SKELTON PATIENT MEDICARE (WNR) MEDICARE (M) PART A Sep 07, 2016 PART A [id number] DERICK SKELTON PATIENT Selected Encounter This section includes the information on record at [place] for the Encounter. Date/Time Encounter Type Encounter Description Reason Provider Source Dec 05, 2022 10:15 AM Outpatient Encounter DENTAL JANKI TAVAREZ Gillian Encounter Template Text not used by [place] Plan of Treatment: Future Appointments (+ 6 months) and Future Tests (+/- 45 days) The Plan of Treatment section includes future care activities for the patient from all [place] treatmentfacilities. This section includes future appointments and future orders which are active, pending or scheduled. Future Appointments This section includes appointments that were scheduled to occur 6 months from the date of the Encounter, up to a maximum of 20 appointments. The data comes from all [place] treatment facilities. Appointment Date/Time Appointment Type Appointme nt Facility Name Dec 30, 2022 10:15 AM AMBULATORY - [place] [facility] Mar 05, 2023 09:00 AM AMBULATORY [place] [facility] Mar 12, 2023 09:00 AM AMBUL[place]ORY [place] [facility] Apr 01, 2023 09:15 AM AMBULATORY - NONE [place] [facility] Apr 01, 2023 10:15 AM AMBUL[place]ORY [place]ICINE [place] [facility] Apr 08, 2023 09:30 AM AMBUL[place]ORY - [place]ICINE [place] [facility] Apr 22, 2023 07:00 AM AMBULATORY - NONE [place] [facility] May 01, 2023 09:00 AM AMBULATORY - MEDICINE [place] [facility] Jun 04, 2023 09:00 AM AMBULATORY - MEDICINE [place] [facility] Jun 04, 2023 09:15 [facility] Social History: Smoking Status (Most [...] place. Date/Time Current Smoking Status Comment Facil itmarino Aug 20, 2022 09:15 AM VA-TOBACCO USE [place] 30 MIN OF WAKE UP [facility] Tobacco Use History This section includes a history of the smoking, or tobacco-related health factors, that were collected on or before the date of the Encounter. The data comes from the [place] facility where the Encounter took place. Date/Time Smoking Status/Tobacco Use Comment F acility Aug 20, 2022 09:15 AM VA-TOBACCO USE ADVICE [facility] Aug 20, 2022 09:15 AM VA-TOBACCO USE OPERATIONS OFFICER NO [facility] Aug 20, 2022 09:15 AM VA-TOBACCO USE MED NO [facility] Aug 20, 2022 09:15 AM VA-TOBACCO USE [place] 30 MIN OF WAKE UP [facility] Aug 20, 2022 09:15 AM VA-TOBACCO USER EVERY DAY [facility] Sep 12, 2021 09:15 AM VA-TOBACCO USE 30 YEARS OR MORE [facility] Sep 12, 2021 09:15 AM VA-TOBACCO USE ADVICE [facility] Sep 12, 2021 09:15 AM VA-TOBACCO USE OPERATIONS OFFICER NO [facility] Sep 12, 2021 09:15 AM VA-TOBACCO USE MED NO [facility] Sep 12, 2021 09:15 AM VA-TOBACCO USE [place] 30 MIN OF WAKE UP [facility] Sep 12, 2021 09:15 AM VA-TOBACCO USER EVERY DAY [facility] Sep 01, 2020 01:30 PM VA-TOBACCO DOESNT USE [place] 30 MIN WAKEUP [facility] Sep 01, 2020 01:30 PM VA-TOBACCO USE 30 YEARS OR MORE [facility] Sep 01, 2020 01:30 PM VA-TOBACCO USE ADVICE [facility] Sep 01, 2020 01:30 PM VA-TOBACCO USE OPERATIONS OFFICER NO [facility] Sep 01, 2020 01:30 PM VA-TOBACCO USE MED NO [facility] Sep 01, 2020 01:30 PM VA-TOBACCO USER EVERY DAY [facility] Sep 27, 2019 09:35 AM VA-TOBACCO USE 30 YEARS OR MORE [facility] Sep 27, 2019 09:35 AM VA-TOBACCO USE ADVICE [facility] Sep 27, 2019 09:35 AM VA-TOBACCO USE OPERATIONS OFFICER NO [facility] Sep 27, 2019 09:35 AM VA-TOBACCO USE MED NO [facility] Sep 27, 2019 09:35 AM VA-TOBACCO USE [place] 30 MIN OF WAKE UP [facility] Sep 27, 2019 09:35 AM VA-TOBACCO USER EVERY DAY [facility] Mar 04, 2018 01:45 PM VA-TOBACCO USE 30 YEARS OR MORE [facility] Mar 04, 2018 01:45 PM VA-TOBACCO USE ADVICE [facility] Mar 04, 2018 01:45 PM VA-TOBACCO USE OPERATIONS OFFICER NO [facility] Mar 04, 2018 01:45 PM VA-TOBACCO USE MED NO [facility] Mar 04, 2018 01:45 PM VA-TOBACCO USE [place] 30 MIN OF WAKE UP [facility] Mar 04, 2018 01:45 PM VA-TOBACCO USER EVERY DAY [facility] Apr 22, 2017 10:01 AM CURRENT TOBACCO USER [facility] Apr 16, 2016 09:52 AM CURRENT TOBACCO USER [facility] July 26, 2014 09:08 AM CURRENT TOBACCO USER [facility] Dec 31, 2013 10:06 AM CURRENT TOBACCO USER [facility] Sep 05, 2012 09:27 AM CURRENT TOBACCO USER [facility] Nov 25, 2011 09:12 AM CURRENT TOBACCO USER [facility] Feb 08, 2011 10:04 AM CURRENT TOBACCO USER [facility] May 01, 2010 10:24 AM CURRENT TOBACCO USER [facility] Jul 03, 2009 08:42 AM CURRENT TOBACCO USER [facility] Encounter Notes: All associated encounter notes This section contains the clinical notes associated to the Encounter. Date/Time Encounter Note(s) Provider Source Dec 05, 2022 05:42 PM REPORT OF CONTACT: LOCAL TITLE: APPOINTMENT SCHEDULING NOTE STANDARD TITLE: REPORT OF CONTACT DATE OF NOTE: DEC 05, 2022@17:42 ENTRY DATE: DEC 05, 2022@17:43:03 AUTHOR: ESTEFANI BILLY EXP COSIGNER: URGENCY: STATUS: COMPLETED APPOINTMENT SCHEDULING NOTE Has ADDENDA Attempted to schedule No show Contact: automated no-show letter queued to be sent Contact: Called Mclain at: /marli/ DANITZA ALBERT MSA ADVANCED ELECTRIC MOTOR ASSEMBLER Signed: 12/05/2022 17:44 12/05/2022 ADDENDUM STATUS: COMPLETED I called the pt and rescheduled hi new pt appt to 12/30/2022 @ 10:15 /marli/ DANITZA ALBERT MSA ADVANCED ELECTRIC MOTOR ASSEMBLER Signed: 12/05/2022 17:44 ESTEFANI BILLY [facility]
--- OUTSIDE RECORDS SUMMARY | 2023-08-05 14:06 | XMS_ITS | Encounter Summary ---
Author Name Department of [facility] Organization Department of [facility] Address [address] [place] [address] Support Name Relationship Address Phone ANTOINE SKELTON Next of Kin , RADHA [address] [place], CARIE Emergency Contact , [place] [phone] ANTOINE SKELTON Next of Kin , RADHA [address] [place], CARIE Emergency Contact , [place] Insurance Providers: [...] AID (WNR) Aug 08, 2013 MEDICAI D [id number] [phone] DERICK SKELTON PATIENT MEDICARE (WNR) MEDICARE (M) PART A Sep 07, 2016 PART A [id number] DERICK SKELTON PATIENT Selected Encounter This section includes the information on record at [place] for the Encounter. Date/Time Encounter Type Encounter Description Reason Pro vider Source Nov 13, 2022 09:00 AM Outpatient Encounter MENTAL [facility] IHE Encounter Template Text not used by [facility] [...] Date/Time Appointment Type Appointme nt Facility Name Nov 20, 2022 08:00 AM AMBULATORY - [place]IATRY [place] [facility] Dec 05, 2022 10:15 AM AMBULATORY - SURGERY [place] [facility] Dec 30, 2022 10:15 AM AMBULATORY - SURGERY [place] [facility] Mar 05, 2023 09:00 AM AMBULATORY - [place]CHIATRY [place] [facility] Mar 12, 2023 09:00 AM AMBULATORY - [place]IATRY [place] [facility] Apr 01, 2023 09:15 AM [facility]ORY - [place]ONE [place] [facility] Apr 01, 2023 10:15 AM [facility] Apr 08, 2023 09:30 AM [place] [facility] Apr 22, 2023 07:00 AM [facility] [place] [facility] May 01, 2023 09:00 AM [facility] Social History: Smoking Status (Most current) [...] 30 MIN OF WAKE UP [facility] Tobacco Use History This section [...] Aug 20, 2022 09:15 AM VA-TOBACCO USE TRANSMISSION CALIBRATION ENGINEER NO [facility] Aug 20, 2022 09:15 [...] Sep 12, 2021 09:15 AM VA-TOBACCO USE TRANSMISSION CALIBRATION ENGINEER NO [facility] Sep 12, 2021 09:15 [...] Sep 01, 2020 01:30 PM VA-TOBACCO USE TRANSMISSION CALIBRATION ENGINEER NO [facility] Sep 01, 2020 01:30 PM VA-TOBACCO USE MED NO [facility] Sep 01, 2020 01:30 PM VA-TOBACCO USER EVERY DAY [facility] Sep 27, 2019 09:35 AM VA-TOBACCO USE 30 YEARS OR MORE [facility] Sep 27, 2019 09:35 AM VA-TOBACCO USE ADVICE [facility] Sep 27, 2019 09:35 AM VA-TOBACCO USE TRANSMISSION CALIBRATION ENGINEER NO [facility] Sep 27, 2019 09:35 [...] Mar 04, 2018 01:45 PM VA-TOBACCO USE TRANSMISSION CALIBRATION ENGINEER NO [facility] Mar 04, 2018 01:45 [...] 08:42 AM CURRENT TOBACCO USER [facility] Radiology Reports: +/- 30 days of the [...] the Encounter. The data comes from all [place] treatment facilities. Date/Time Radiology Report Provider Source Oct 16, 2022 01:43 PM DXA BONE DENSITY: FRANCES SKELTON [id number] -1950 M Ex Date: OCT 16, 2022@13:43 Req Phys: KAREN DOVE Pat Loc: [facility] PACT CHANTEL 4D (Req'g Loc) Img Loc: NUC MED Service: Unknown (Case [id number] COMPLETE) DXA BONE DENSITY AXIAL (NM Detailed) CPT:94977 Reason for Study: eval for low bone density (Case 1832 COMPLETE) TRABECULAR BONE SCORE (TBS) W/ IN(NM Detailed) CPT:92393 Clinical History: IS NOT under investigation for COVID-19 or is COVID-19 negative Frequent falls, h/o EtOH and cigarette use, eval for low bone density Responsible provider name and phone number to notify for critical findings if other than user placing the order and pager listed below: User placing orders pager: [phone] LAST CREATININE 1.2 (08/20/22) Report Status: Verified Date Reported: OCT 21, 2022 Date Verified: OCT 21, 2022 Ged Teacher E-Sig:/ES/AIRAM BUTTERFIELD MD Report: EXAMINATION: DXA Bone Density Scan INDICATION: Evaluate for low bone density.Frequent falls. History of alcohol and cigarette use. CLINICAL INFORMATION: Smoking history, drinking three or more alcoholic per day. LABORER GENERAL: tapviva. Model: Horizon A. TECHNIQUE/LIMITATIONS: The technical quality [...] 2.7% Impression: Diagnosis (WHO Classification): Osteopenia. I, Airam Butterfield, have reviewed the images and report. Primary Diagnostic Code: SIGNIFICANT ABNORMALITY, ATTN NEEDED Primary Interpreting Staff: AIRAM BUTTERFIELD MD, RADIOLOGY STAFF PHYSICIAN (Ged Teacher) Primary Interpreting Resident: ASHLEY CUNNINGHAM DO, VISUAL BASIC DEVELOPER /AIRAM GONSALEZ [facility] Encounter Notes: All associated encounter notes This section contains the clinical notes associated to the Encounter. Date/Time Encounter Note(s) Provider Source Nov 13, 2022 12:55 PM NO SHOW NOTE: LOCAL TITLE: NO SHOW NOTE STANDARD TITLE: NO SHOW NOTE DATE OF NOTE: NOV 13, 2022@12:55 ENTRY DATE: NOV 13, 2022@12:55:16 AUTHOR: CAROLA ALICEA COSIGNER: URGENCY: STATUS: COMPLETED NO SHOW NOTE Has ADDENDA Patient did not appear for scheduled appointment. Risk Factors: chronic [place]; poor health Protective Factors: has had much therapy Clinician Judgment of Risk: low; frquently no shows Plan Based on Clinician Judgment of Risk: per protocol Left message on AM to reschdule. ordered letter no show /marli/ Carola Alicea M.D., Ph.D. STAFF PSYCHIATRIST Signed: 11/13/2022 13:05 Receipt Acknowledged By: 11/13/2022 16:02 /marli/ GENOVEVA RODAS [facility] FLOAT LEAD [facility] 11/13/2022 ADDENDUM STATUS: COMPLETED 1st Attempt- Made by Provider. 2nd Attempt- sent a no show letter on ((11/13/2022)). Alerting [facility] to make remaining outreach. Please addendum this note for documentation. If there is no further contact from the RTC will be dispositioned on ((11/27/2022)). /marli/ GENOVEVA MARQUEZ [facility] FLOAT LEAD [facility]SA Signed: 11/13/2022 16:03 CAROLA ALICEA V [facility]
--- OUTSIDE RECORDS SUMMARY | 2023-08-05 14:06 | XMS_ITS | Encounter Summary ---
Author Name [facility] Organization [facility] Address [address] [place] [address] Support Name Relationship Address Phone ANTOINE SKELTON Next of Kin , RADHA [address] [place], CARIE Emergency Contact , [place] ANTOINE SKELTON Next of Kin , RADHA [address] [place], CARIE Emergency Contact , [place] Insurance [...] AID (WNR) Aug 08, 2013 MEDICAI D [id number] [phone] DERICK SKELTON PATIENT MEDICARE (WNR) MEDICARE (M) PART A Sep 07, 2016 PART A [id number] [phone] DERICK SKELTON PATIENT Selected Encounter This section includes the information on record at [place] for the Encounter. Date/Time Encounter Type Encounter Description Reason Provider Source Nov 01, 2022 09:00 AM WHEELCHAIR MNGMENT TRAINING WHEELCHAIR & ADVAN MOBILITY ICD-10-CM Z74.09 Other reduced mobility SAROJ GARZA E Encounter Template Text not used by [place] Assessments - Encounter Diagnoses This section includes the primary and secondary diagnoses documented for the Encounter. Date/Time Primary/Secondary Diagnosis Diagnosis Name Provider Source Nov 01, 2022 03:37 PM PRIMARY Other reduced mobility SAROJ GARZA [facility] Plan of Treatment: Future Appointments (+ 6 months) and Future Tests (+/- 45 days) The Plan of Treatment section includes future care activities for the patient [facility] This section includes future appointments and future orders which are active, pending or scheduled. Future Appointments This section includes appointments that were scheduled to occur 6 months from the date of the Encounter, up to a maximum of 20 appointments. The data comes from all [place] treatment facilities. Appointment Date/Time Appointment Type Appointme nt Facility Name Nov 13, 2022 09:00 AM AMBULATORY - PS[place]CHIATRY [place] [facility] Nov 20, 2022 08:00 AM AMBULATORY - PSYCHIATRY [place] [facility] Dec 05, 2022 10:15 AM AMBULATORY - SURGERY [facility] Dec 30, 2022 10:15 AM AMBULATORY - SURGERY [facility] Mar 05, 2023 09:00 AM AMBULATORY - PSYCHIATRY [place] [facility] Mar 12, 2023 09:00 AM AMBULATORY - PSYCHIATRY [place] [facility] Apr 01, 2023 09:15 AM AMBULATORY - NONE [facility] Apr 01, 2023 10:15 AM [facility] Apr 08, 2023 09:30 AM [facility] Apr 22, 2023 07:00 AM 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 NO [facility] Sep 01, 2020 01:30 PM VA-TOBACCO USE MED NO [facility] Sep 01, 2020 01:30 PM VA-TOBACCO USER EVERY DAY [facility] Sep 27, 2019 09:35 AM VA-TOBACCO USE 30 YEARS OR MORE [facility] Sep 27, 2019 09:35 AM VA-TOBACCO USE ADVICE [facility] Sep 27, 2019 09:35 AM 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 The data comes from all [facility] facilities. Date/Time Radiology Report Provider Source Oct 16, 2022 01:43 PM DXA BONE DENSITY: FRANCES SKELTON [id number] -1950 M Exm Date: OCT 16, 2022@13:43 Req Phys: PETTY,KAREN B Pat Loc: [facility]SP PACT CHANTEL 4D (Req'g Loc) Img Loc: NUC MED Service: Unknown (Case 1831 COMPLETE) DXA BONE DENSITY AXIAL (NM Detailed) CPT:73882 Reason for Study: eval for low bone density (Case 1832 COMPLETE) TRABECULAR BONE SCORE (TBS) W/ IN(NM Detailed) CPT:40293 Clinical History: [place] IS NOT under investigation for COVID-19 or is COVID-19 negative Frequent falls, h/o EtOH and cigarette use, eval for low bone density Responsible provider name and phone number to notify for critical findings if other than user placing the order and pager listed below: User placing orders pager: [phone] LAST CREATININE 1.2 (08/20/22) Report Status: Verified Date Reported: OCT 21, 2022 Date Verified: OCT 21, 2022 Shell Sorter E-Sig:/ES/AIRAM BUTTERFIELD MD Report: EXAMINATION: DXA Bone Density Scan INDICATION: Evaluate for low bone density.Frequent falls. History of alcohol and cigarette use. CLINICAL INFORMATION: Smoking history, drinking three or more alcoholic per day. WET SANDER: LogoGrab. Model: Horizon A. TECHNIQUE/LIMITATIONS: The technical quality [...] Staff: AIRAM BUTTERFIELD MD, RADIOLOGY STAFF PHYSICIAN (Shell Sorter) Primary Interpreting Resident: ASHLEY CUNNINGHAM DO, FIRE EXTINGUISHER SPRINKLER INSPECTOR /AIRAM GONSALEZ [facility] Encounter Notes: All associated encounter notes This section contains the clinical notes associated to the Encounter. Date/Time Encounter Note(s) Provider Source Nov 01, 2022 09:00 AM OCCUPATIONAL THERA PY CONSULT: LOCAL TITLE: OCCUPATIONAL THERAPY CONSULT STANDARD TITLE: OCCUPATIONAL THERAPY CONSULT DATE OF NOTE: NOV 01, 2022@09:00 ENTRY DATE: NOV 01, 2022@10:27 AUTHOR: SAROJ GARZA EXP COSIGNER: URGENCY: STATUS: COMPLETED OCCUPATONAL THERAPY ADVANCED MOBILITY ASSESSMENT Referring provider: NURY CAZARES Diagnosis for which patient is referred to OT: Other Reduced Mobility(ICD-10-CM Z74.09) Consult request: New powered mobility Precautions: Fall risk, standard/universal precautions seen for 65 minutes Encounters: -OT Evaluation - low Complexity (1): 15 min -Wheelchair management (3): 50 mins ASSESSMENT: Vet is a 72 yo male referred to custom seating and mobility clinic for assessment of: new power mobility. The has completed a functional mobility assessment in the community, but has not been able to participate in a functional drive assessment. The has very lengthy LEs and due to a fall, he is unable to sit with his hip flexed to a 90* of flexion. The needs a device that will accommodate the length of his LEs. This is the clinical reasoning for the Can Bender scooter. This scooter has the longest base, but is a standard width, that will accommodate for his LEs length and his body's width. The completed a functional driving assessment in the 3 wheeled demo scooter, to which the displayed no safety concerns with the functional driving, but due to his size he was not able to safety have his LEs within the base of the scooter. The was educated on the features of new scooter, how to protect the scooter in rain, proper uses for scooter. Provided Mobility Device Informational hand out and [facility] Physical Medicine and Rehabilitation - Wheelchair Clinic Power Mobility handout and reviewed charging of batteries, Storage Cleaning, Brake release, outdoor use, and wheelchair replacement. Vet was provided wheelchair clinic and Prosthetics phone numbers. Upon receiving the quote, a consult will be placed to prosthetics. Once the scooter arrives to the [facility], the will be contacted by lift vendor to install lift and deliver the scooter. Vehicle information: (2005), (Jeep), ([place]) [place] Preference for lift type: hitch lift RECOMMENDATIONS: - Can Bender scooter, all weather cover and [place] Patch - Hitch lift PLAN: Goal to evaluate for advanced mobility was met. No further advanced mobility needs are identified at this time. Vet is discharged from OP advanced mobility clinic. SHORT TERM GOAL TO BE MET BY: 1. Vet will complete trial of power mobility demonstrating safety with use. -MET 2. Vet will complete final fitting, trial, and issuance of power mobility in- clinic demonstrating improved posturing, pain reduction, pressure reduction, and verbalize understanding of safety and proper maintenance. -MET EDUCATION ON TREATMENT PLAN: Patient, Family, Other indicates readiness to learn, verbalizes understanding, agreement and satisfaction with the treatment plan. Denies further questions. CURRENT MEDICAL HISTORY: Foot Pain (ICD-9-CM 719.47) Mixed Incontinence (ICD-9-CM 788.33) Heavy tobacco smoker (RUST [id number] (ICD-9-CM 784.0) Numbness (ICD-9-CM 782.0) Depression (SCT 03899832) Alc Dependence, NOS (ICD-9-CM 303.90) HYPERCHOLESTEROLEMIA (ICD-9-CM 272.0) Chronic post-traumatic stress disorder fParesis (Pathologic Function) (ICD-9-CM 344.9) Lumbar Pain (ICD-9-CM 724.2) Cocaine Depend, Remiss (ICD-9-CM 304.23) Cannabis Abuse, Cont (ICD-9-CM 305.21) Depressive episode (SCT 17936336) MDD, Recurrent, unspec (ICD-9-CM 296.30)Abstinent alcoholic (SCT 346672258) Muscle Weakness (ICD-9-CM 728.87) Idiopathic chronic neuropathy (SCT 224378857) Other and unspecified injury to knee, leColonic Polyps (ICD-9-CM 211.3) Screening for other specified conditionsRash and other nonspecific skin eruption (ICD-9-CM 782.1) Malign Neopl Prostate (ICD-9-CM 185.) Neuroma, Digital/Bay's (ICD-9-CM 355.6) Iron deficiency anemia (ICD-9-CM 280.9) Adrenal mass (ICD-9-CM 255.8) Hip pain (ICD-9-CM 719.45) Back pain (SCT 195172762) Hypomagnesemia (SCT 758063757) Lumbar spondylosis (SCT 433598433) SUBJECTIVE: I need to be comfortable Identified concerns/problems with wheelchair use: the need to be able to comfortable and be able to use it on gravel road, which are around his home and town Identified goal(s) with wheelchair use: Community/outdoors CONTEXT SOCIAL HISTORY/HOME ENVIRONMENT: Lives: with his sister Primary Support System: SisterDIANDRA Lives in: a Trailer, completed a home accessibility assessment in the Summer 2022. Home accessibility issues: has ramp PRIOR LEVEL OF INDEPENDENCE: Vet reports: -Transferring: SBA to mod(I) -Mobility: limited unable to in the community without assistance, walker or manual wheelchair in the home -Driving: (I) Seating and mobility equipment on prosthetics record: 09/04/22 1 ROLLATOR - I ROSENBERG 09/04/22 188.75 ROLLATOR - F-22 NITRO STANDARD (DRIVE) ([id number]) 7. 08/30/22 1 W/C-MANUAL I [facility] 09/12/22 672.15 8. 08/29/22 1 * I [id number] 80.00 9. 08/20/22 1 CURVE CUSH I THE COMFOR 08/20/22 40.79 CURVE CUSHION/18X16 [id number] 19. 08/22/20 1 CURVE CUSH I THE COMFOR 08/22/20 40.79 CURVE 18X16 21. 08/22/20 1 RAMP/MODUL X NEXT DAY A 09/05/20 190.75 -THRESHOLD RAMP AT FRONT DOOR 22. 08/22/20 1 MEDICAL EQ X NEXT DAY A 09/05/20 100.00 24. 11/08/19 1 RAMP/MODUL I NEXT DAY A 11/17/19 3904.82 MODULAR RAMP W/MESH SURFACE 26. 02/02/19 1 CANE TIP - I KREISERS 02/02/19 9.99 CANE TIP - ICE SPECIALTY DEVELOPMENT CONSULTANT ATTACHMENT ([id number]) 69. 10/08/10 1 W/C,MANUAL I [facility] 618 [id number] 10/08/10 357.86 18 x 18 [id number] 70. 10/08/10 1 CUSHION-GE I ADVANCED T 10/08/10 36.02 18 x 18 Geomat 74. 04/24/10 1 CANE/INV I INVACARE C 618 04/24/10 5.90 CANE 75. 04/24/10 1 CANE TIP - I BAUTISTA/MAB 618 04/24/10 4.68 ICE GRIPPER PAIN ASSESSMENT: Pain Present: Yes If pain present intensity: 06/17 OBJECTIVE: Vet arrives to session standard manual wheelchair Measurements: -Height: Unavailable (08/20/2022 09:00) -Weight: Unavailable (08/20/2022 09:00) Hip width = _17.5____ Widest part of the hips including adipose tissue (body fat). Take measurement in-front of the individual. Upper leg length = __24___ Back of buttock to popliteal fossa (back of knee). Take measurement at the side of the individual. Foot-knee height = ___27__ Bottom of foot with footwear to top of knee. Take measurement at the side of the individual. Current wheelchair measurements: Foot clearance = __2___ Floor to bottom of wheelchair footplate. Wheelchair width = ___18__ Width of the seat sling. Inside armrest to inside armrest. Wheelchair depth = _20____ Depth of the seat sling. Cushion height = __0___ Bottom of the cushion to top of cushion with immersion ( sitting on the cushion) Front tvcj-lm-sbejj height = ___19.5__ Floor to wheelchair seat sling on the front of the wheelchair. Hip clearance = __2___ Space between the armrest/side guards and the hips on both sides added together. Popliteal clearance = __5___ Space between the front of the cushion and the back of the knee. Seated Posture: -Obliquity: WFL -Rotation: WFL -Pelvic Tilt: Posterior -Scoliosis: N/A -Femur Support: WFL Mat Evaluation: Unable to flex his hips to 90* due to healed hip/femur fx. OCCUPATIONAL THERAPY EVALUATION COMPLEXITY Identifying and reporting the complexity level of an evaluation focuses on the first three of these factors--profile and history, assessment and determination of deficits, and clinical decision making. These three factors must be scored and defensible documentation written to support the choice of a level. (Information taken from: https://www.aota.org) PROFILE AND HISTORY (including chart view) Brief history of medical and/or therapy records relating to the presenting problem (low complexity) ASSESSMENT & PERFORMANCE DEFICITS (select all that apply): Physical: strength, mobility 1-3 performance deficits (Low complexity) LEVEL OF CLINICAL DECISION MAKING Comorbidities affect occupational performance: Yes (moderate or high complexity) Modifications of tasks or assistance to enable completion of evaluation: Not necessary (Low complexity) Problem-focused assessment(s), consideration of a limited number of treatment options, presents with no comorbidities and modification of tasks or assistance is not necessary.(Low complexity) LOW COMPLEXITY Brief history of medical/or therapy records relating to the presenting problem. An assessment(s) that identifies 1-3 performance deficits that result in activity limitation and/or participating restrictions. Includes analysis of the occupational profile, analysis of date from problem-focused assessment(s), and consideration of a limited number of treatment options. Patient presents with no comorbidities that affect occupational performance. Modification of tasks or assistance with assessment(s) is not necessary to enable completion of evaluation component. /marli/ SAROJ GARZA OTR/L Signed: 11/04/2022 08:30 SAROJ GARZA [facility]
--- OUTSIDE RECORDS SUMMARY | 2023-08-05 14:07 | XMS_ITS | Encounter Summary ---
Author Name Department of [facility] Organization Department of Veter[facility] Affairs Address [address] [place] [address] Support Name Relationship Address Phone ANTOINE SKELTON Next of Kin , RADHA [address] CARIE CHAVEZ Emergency Contact , [place] [phone] ANTOINE SKELTON Next of Kin , RADHA [address] CARIE CHAVEZ Emergency Contact , [place] [phone] Insurance Providers: All historical and current Section [...] AID (WNR) Aug 08, 2013 MEDICAI D [id number] DERICK SKELTON PATIENT MEDICARE (WNR) MEDICARE (M) PART A Sep 07, 2016 PART A [id number] DERICK SKELTON PATIENT Selected Encounter This section includes the information on record at [place] for the Encounter. Date/Time Encounter Type Encounter Description Reason Provider Source Mar 12, 2023 09:00 AM OFFICE O/P EST MOD 30 MIN [facility] - IND ICD-10-CM Z71.6 Tobacco abuse counseling HUSAM MAYNARD V Gillian Encounter Template Text not used by [place] Assessments - Encounter Diagnoses This section includes the primary and secondary diagnoses documented for the Encounter. Date/Time Primary/Secondary Diagnosis Diagnosis Name Provider Source Mar 12, 2023 09:40 AM PRIMARY Tobacco abuse counseling HUSAM MAYNARD V [facility] Mar 12, 2023 09:40 AM SECONDARY Major depressive disorder, recurrent, moderate HUSAM MAYNARD V [facility] Mar 12, 2023 09:40 AM SECONDARY Post-traumatic stress disorder, chronic MAYNARD,HUSAM Kingsley [facility] Plan of Treatment: Future Appointments (+ 6 months) and Future Tests (+/- 45 days) The Plan of Treatment section includes future care activities for the patient from all [place] [facility]. This section includes future appointments and future orders which are active, pending or scheduled. Future Appointments This section includes appointments that were scheduled to occur 6 months from the date of the Encounter, up to a maximum of 20 appointments. The data comes from all [facility] facilities. Appointment Date/Time Appointment Type Appointme nt Facility Name Apr 01, 2023 09:15 AM AMBULATORY - NONE [facility] Apr 01, 2023 10:15 AM AMBULATORY - MEDICINE [facility] Apr 08, 2023 09:30 AM AMBULATORY MEDICINE [facility] Apr 22, 2023 07:00 AM AMBULATORY - NONE [facility] May 01, 2023 09:00 AM AMBULATORY - MEDICINE [facility] Jun 04, 2023 09:00 AM AMBULATORY - MEDICINE [facility] Jun 04, 2023 09:15 AM AMBULATORY - MEDICINE [facility] July 16, 2023 09:00 AM AMBULATORY - PSYCHIATRY [facility] Lab Results: +/- 30 days of the encounter This section includes the Chemistry and Hematology Lab Results on record with [place] for the patient. Radiology Reports and Pathology Reports are provided separately, in subsequent sections. Lab Results This section contains the Chemistry/Hematology Results that were resulted 30 days before or 30 daysafter the date of the Encounter. Date/Time Source Result Type Result - Unit Interpretation Reference Range Comment Apr 01, 2023 09:26 AM [facility] B 12 Specimen Type: SERUM No comment entered. Ordering Provider: GLEN DOVE Report Released Date/Time: Aug 20, 2022 09:56 AM Reporting Lab: [facility] [id number] Performing Lab: [facility] [id number] B 12 1040 H [id number] Apr 01, 2023 09:26 AM [facility] FOLATE Specimen Type: SERUM No comment entered. Ordering Provider: GLEN DOVE Report Released Date/Time: Aug 20, 2022 09:56 AM Reporting Lab: [facility] [address] Performing Lab: [facility] [address] FOLATE 13.6 >7.0 Apr 01, 2023 09:26 AM [facility] VIT D 25-OH,TOTAL Specimen Type: SERUM No comment entered. Ordering Provider: GLEN DOVE Report Released Date/Time: Aug 20, 2022 09:56 AM Reporting Lab: [facility] [address] Performing Lab: [facility] [address] VIT D 25-OH,TOTAL 36 12-50 Apr 01, 2023 09:26 AM [facility] CBC Specimen Type: BLOOD No comment entered. Ordering Provider: GLEN DOVE Report Released Date/Time: Aug 20, 2022 09:56 AM Reporting Lab: [facility] [id number] Performing Lab: [facility] [address] WBC 6.26 4.0-11.0 RBC 3.02 L 4.6-6.2 HGB 8.9 L 13.5-17.9 HCT 28.2 L 41-54 MCV 93.4 80-100 MCH 29.5 27-33 MCHC 31.6 L 32.0-37.5 PLT 189 150-400 MPV 10.3 7.4-10.4 RDW 15.9 H 11.5-14.5 Apr 01, 2023 09:26 AM [facility] COMPREHENSIVE METABOLIC PANEL+MG Specimen Type: PLASMA No comment entered. Ordering Provider: GLEN DOVE Report Released Date/Time: Aug 20, 2022 09:56 AM Reporting Lab: [facility] [id number] Performing Lab: [facility] [address] CREATININE 1.4 H 0.7-1.2 UREA NITROGEN 16 8-26 GLUCOSE 103 H 70-100 SODIUM 138 136-145 POTASSIUM 3.4 L 3.5-5.1 CHLORIDE 105 98-107 CO2 26 22-29 CALCIUM 8.5 8.4-10.2 PROTEIN,TOTAL 6.3 6.0-8.3 ALBUMIN 3.3 L 3.5-5.2 BILIRUBIN, TOTAL 0.3 0.2-1.2 MAGNESIUM 1.8 1.6-2.6 ANION GAP 7 5-15 ALKALINE PHOSPHATASE 93 40-150 ALT/SGPT 10 <55 AST/SGOT 24 <34 .CREAT EGFR(CKD-EPI) 54 L >60 Apr 01, 2023 09:26 AM [facility] RETICS Specimen Type: BLOOD Comment: Specimen received is PLASMA. Ordering Provider: GLEN DOVE Report Released Date/Time: Apr 01, 2023 10:44 AM Reporting Lab: [facility] [address] Performing Lab: [facility] [address] ABS RETIC 0.0416 0.0300-0.1 000 .RETICULOCYTE 1.39 0.6-2.0 IMMATURE RETIC 16.6 H 1.0-14.0 .RETICULOCYTE HE 25.4 L 28.2-36.6 Apr 01, 2023 09:26 AM [facility] IRON GROUP Specimen Type: SERUM Comment: Specimen received is PLASMA. 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 NO [facility] Sep 12, 2021 09:15 [...] Sep 01, 2020 01:30 PM VA-TOBACCO USE 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 STERILE TECHNICIAN NO [facility] Sep 01, 2020 01:30 PM VA-TOBACCO USE MED NO [facility] Sep 01, 2020 01:30 PM VA-TOBACCO USER EVERY DAY [facility] Sep 27, 2019 09:35 AM VA-TOBACCO USE 30 YEARS OR MORE [facility] Sep 27, 2019 09:35 AM VA-TOBACCO USE ADVICE [facility] Sep 27, 2019 09:35 AM 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 For cases when an order for pathology services may have been completed after the date of the Encounter, the report list also includes the Pathology Reports that were completed up to30 days after date of the Encounter. The data comes from all [facility] facilities. Date/Time Pathology Report Provider Source Apr 09, 2023 02:30 PM LR SURGICAL PATHOL OGY REPORT: LOCAL TITLE: LR SURGICAL PATHOLOGY REPORT STANDARD TITLE: PATHOLOGY REPORT DATE OF NOTE: APR 09, 2023@14:30:01 ENTRY DATE: APR 09, 2023@14:30:01 AUTHOR: ANDERSON ZAMORA EXP COSIGNER: URGENCY: STATUS: COMPLETED $APHDR Reporting Lab: [facility] [CLIA# [id number]] [place] [address] - - - - - - - - - - - - - - - - - - - - - - - - - - - - - - - - - - - - - - - - MEDICAL RECORD SURGICAL PATHOLOGY - - - - - - - - - - - - - - - - - - - - - - - - - - - - - - - - - - - - - - - - PATHOLOGY REPORT Accession No. [id number] - - - - - - - - - - - - - - - - - - - - - - - - - - - - - - - - - - - - - - - - $TEXT Submitted by: SOWMYA TURNER Date obtained: Apr 08, 2023 - - - - - - - - - - - - - - - - - - - - - - - - - - - - - - - - - - - - - - - - Specimen (Received Apr 08, 2023 13:50): 1. BX.STOMACH ANTRUM BODY 2. BX.ESOPHAGUS GE JUNCTION - - - - - - - - - - - - - - - - - - - - - - - - - - - - - - - - - - - - - - - - BRIEF CLINICAL HISTORY: Procedure: Endoscopy - - - - - - - - - - - - - - - - - - - - - - - - - - - - - - - - - - - - - - - - PREOPERATIVE DIAGNOSIS: 1. R/O Helicobacter pylori 2. R/O Arango's - - - - - - - - - - - - - - - - - - - - - - - - - - - - - - - - - - - - - - - - OPERATIVE FINDINGS: - - - - - - - - - - - - - - - - - - - - - - - - - - - - - - - - - - - - - - - - POSTOPERATIVE DIAGNOSIS: Surgeon/physician: SOWMYA TURNRE MD =-=-=-=-=-=-=-=-=-=-=-=-=-= -=-=-=-=-=-=-=-=-=-=-=-=-=- =-=-=-=-=-=-=-=-=-=-=-=-= - - - - - - - - - - - - - - - - - - - - - - - - - - - - - - - - - - - - - - - - PATHOLOGY REPORT Accession No. [id number] - - - - - - - - - - - - - - - - - - - - - - - - - - - - - - - - - - - - - - - - GROSS DESCRIPTION: The requisition form and specimen(s) identification is confirmed. SPEC. 1 is labeled as stomach-body, antrum and consists of 4 bourgeois tissue fragments measuring 0.3 to 0.6 cm in greatest dimension. An H. pylori stain is ordered. CE SPEC. 2 is labeled as esophagus-GE junction and consists of 7 bourgeois tissue fragments measuring less than 0.1 to 0.3 cm in greatest dimension. CE (D[facility]OSCOPIC DESCRIPTION: Microscopic examination performed. BB DIAGNOSIS: 1. Stomach, antrum body, biopsy-- - Reactive gastropathy - H. pylori stain: Negative 2. 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 - No evidence of dysplasia or malignancy /marli/ ANDERSON ZAMORA MD STAFF PATHOLOGIST Signed Apr 09, 2023@14:30 Performing Laboratory: Surgical Pathology Report Performed By: [facility] [CLIA# [id number]] [place] [address] $FTR - - - - - - - - - - - - - - - - - - - - - - - - - - - - - - - - - - - - - - - - (End of report) ANDRESON ZAMORA MD bcb Date Apr 09, 2023 - - - - - - - - - - - - - - - - - - - - - - - - - - - - - - - - - - - - - - - - FRANCES SKELTON STANDARD FORM 515 ID:[id number] SEX:M :1950 AGE: 72 LOC:MSP GI COLONOSCOPY A PCP: Glen Dove MD /marli/ ANDERSON ZAMORA MD STAFF PATHOLOGIST Signed: 04/09/2023 14:30 ANDERSON ZAMORA [facility] Encounter Notes: All associated encounter notes This section contains the clinical notes associated to the Encounter. Date/Time Encounter Note(s) Provider Source Mar 12, 2023 04:27 PM PSYCHIATRY E & M NOTE: LOCAL TITLE: PSYCHIATRIC EVALUATION & MANAGEMENT STANDARD TITLE: PSYCHIATRY E & M NOTE DATE OF NOTE: MAR 12, 2023@16:27 ENTRY DATE: MAR 12, 2023@16:27:54 AUTHOR: HUSAM MAYNARD COSIGNER: URGENCY: STATUS: COMPLETED Pt seen for psychiatric follow-up. PSYCHIATRIC DIAGNOSIS: Foot Pain (ICD-9-CM 719.47) Mixed Incontinence (ICD-9-CM 788.33) Heavy tobacco smoker ([facility] [id number] (ICD-9-CM 784.0) Numbness (ICD-9-CM 782.0) Depression (SCT 77627468) Alc Dependence, NOS (ICD-9-CM 303.90) HYPERCHOLESTEROLEMIA (ICD-9-CM 272.0) Chronic post-traumatic stress disorder fParesis (Pathologic Function) (ICD-9-CM 344.9) Lumbar Pain (ICD-9-CM 724.2) Cocaine Depend, Remiss (ICD-9-CM 304.23) Cannabis Abuse, Cont (ICD-9-CM 305.21) Depressive episode (SCT 42619384) MDD, Recurrent, unspec (ICD-9-CM 296.30)Abstinent alcoholic (SCT 577507638) Muscle Weakness (ICD-9-CM 728.87) Idiopathic chronic neuropathy (SCT 176428799) Other and unspecified injury to knee, leColonic Polyps (ICD-9-CM 211.3) Screening for other specified conditionsRash and other nonspecific skin eruption (ICD-9-CM 782.1) Malign Neopl Prostate (ICD-9-CM 185.) Neuroma, Digital/Bay's (ICD-9-CM 355.6) Iron deficiency anemia (ICD-9-CM 280.9) Adrenal mass (ICD-9-CM 255.8) Hip pain (ICD-9-CM 719.45) Back pain (SCT 139380621) Hypomagnesemia (SCT 937987122) Lumbar spondylosis ([facility] [id number]) Prior note reviewed. Allergies: BUTORPHANOL (Jul 03, 2009) BEE VENOM (July 13, 2019) Vitals: BP: 138/66 (08/20/2022 09:00) P: 51 (08/20/2022 09:00) R: 18 (08/20/2022 09:00) T: 97.7 F [36.5 C] (08/20/2022 09:00) WT: Unavailable (08/20/2022 09:00) BMI: BMI not available without height INTERIM PROGRESS NOTE/CLINICAL COURSE: He broke up w GF because she was always asking dumbquestions. It looks like she too has depression. He received recently an electric chair with superwide wheels so he can go on long trips with dog to get out more. Smoking _x__ Yes ____ No Alcohol ___ Yes ____ No Drugs ___ Yes __x__ No Gambling___ Yes ____ No Pt education and counseling for abstinence: ___ Yes ___ No Current Medications as listed in the computer medical record: Active Outpatient Medications (including Supplies): Active Outpatient Medications Status ======= 1) ATENOLOL 25MG TAB TAKE ONE TABLET BY MOUTH EVERY DAY ACTIVE FOR ANXIETY FOR ANXIETY 2) BRIEF,TRANQUILITY LESLIE OVERNITE #2114 USE BRIEF ACTIVE DIRECTED 3) CARBOXYMETHYLCELLULOSE NA 0.5% OPH SOLN INSTILL 1 ACTIVE DROP IN BOTH EYES FOUR TIMES A DAY NEEDED FOR DRY EYES 4) CHOLECALCIF 25MCG (D3-1,000UNIT) TAB TAKE ONE TABLET ACTIVE BY MOUTH EVERY DAY FOR VITAMIN D 5) CYANOCOBALAMIN 1000MCG TAB TAKE ONE TABLET BY MOUTH ACTIVE EVERY DAY FOR B12 6) EPINEPHRINE (EQV-EPI-PEN) 0.3MG/0.3ML INJECT 1 PEN ACTIVE DIRECTED ONCE NEEDED FOR ALLERGIC REACTION 7) FOLIC ACID 1MG TAB TAKE ONE TABLET BY MOUTH EVERY DAY ACTIVE 8) LIDOCAINE 5% PATCH APPLY 1 PATCH TOPICALLY EVERY DAY ACTIVE FOR UP TO 12 HOURS FOR PAIN 9) NALOXONE HCL 4MG/SPRAY SOLN NASAL SPRAY SPRAY 1 DOSE ACTIVE IN ONE NOSTRIL DIRECTED FOR UNRESPONSIVENESS THEN CALL 911 - IF NO CHANGE IN 2-3 MINUTES, GIVE SECOND DOSE IN OPPOSITE NOSTRIL 10) OLANZAPINE 2.5MG TAB TAKE ONE TABLET BY MOUTH AT ACTIVE BEDTIME FOR IRRITABILITY AND SLEEP 11) OLODATEROL/TIOTROP 2.5MCG/ACTUAT 60D INH INHALE 2 ACTIVE PUFFS BY INHALATION EVERY DAY FOR COPD 12) OMEPRAZOLE 20MG EC CAP TAKE TWO CAPSULES BY MOUTH ACTIVE TWICE A DAY ON AN EMPTY STOMACH, AT LEAST 30 MINUTES PRIOR TO A MEAL TO DECREASE STOMACH ACID 13) OMEPRAZOLE 40MG EC CAP TAKE ONE CAPSULE BY MOUTH ACTIVE TWICE A DAY FOR STOMACH ACID 14) PYRIDOXINE HCL 50MG TAB TAKE 1/2 TABLET BY MOUTH ACTIVE EVERY DAY 15) SILDENAFIL CITRATE 100MG TAB TAKE ONE TABLET BY MOUTH ACTIVE EVERY DAY NEEDED 1 HOUR BEFORE ANTICIPATED SEXUAL ACTIVITY. FOR ERECTIONS. 16) THIAMINE 100MG TAB TAKE ONE TABLET BY MOUTH EVERY DAY ACTIVE 17) TRAZODONE HCL 150MG TAB TAKE ONE TABLET BY MOUTH AT ACTIVE BEDTIME FOR SLEEP 19 Total Medications Patient reports compliance, takes meds as directed. Review of medications and reconciliation. SIDE EFFECTS, REVIEW: none REVIEW OF SYSTEMS: General/constitutional: no complaints reported Gait: wheel chair bound, unsteady on legs even w assistance PERSONAL AND SOCIAL HISTORY: Employment: disabled Living situation: self Most recent vital signs: BP 138/66 (08/20/2022 09:00)Pulse51 (08/20/2022 09:00)Pain4 (08/20/2022 09:00) Selective labs vs normal range: GLUCOSE 66 L (08/20/22) (70-110) POTASSIUM 3.6 (08/20/22) (3.5-4.7) SGOT 40 H (08/20/22)(14-45) SGPT 11 (08/20/22)(15-73) CREATININE 1.2 (08/20/22) (0.8-1.4) UREA NITROGEN 9 (08/20/22)(10-20) TSH 0.75 (08/20/22)(0.3-6) HGB 10.6 L (08/20/22)(14-17.9) WBC 4.78 (08/20/22)(4.5-11) PLT 172 (08/20/22)(130-380) ALBUMIN 3.3 L (08/20/22) ) The above lab values are reviewed. MENTAL STATUS EXAM: GENERAL APPEARANCE & BEHAVIOR: fair dress and grooming (baseline); no abnormal psychomotor activity, good eye contact, pleasant and cooperative. AFFECT: less dysthymic than usual . FORM OF THOUGHT: log & seqn, NRR, -Loosening associations; - Push of Speech; -Flight of ideas. Was more talkative and engaging than usual THOUGHT CONTENT: -suicidal/- homocidal; - psychosis SENSORIUM & INTELLECTUAL FUNCTIONS: grossly intact INSIGHT: good JUDGMENT: sufficient for safety [xx ]yes; [ ]no PSYCHIATRIC ASSESSMENT: PTSD; MDD; nicotine dependent; (x ) Improved ( ) Unchanged ( ) [...] coping strategies are present. ACUTE RISK FACTORS: demographics,phsycial health, depression, interpersonal stress; relationship breakup ACUTE PROTECTIVE FACTORS:f/u; no drugs; compliant; desires psychiatric assessment and management; no recent evidence of change in risk status INTERMEDIATE FACTORS: as above Assaultiveness Risk Level Impression:low PLAN: continue current meds RTC: ~ 3mo ____ PATIENT EDUCATION Medication education provided. Pt is aware of risk/benefits an potential side effects. If Appropriate: Antipsychotic Medication Education (weight gain/lipids/diabetes/TD/NMS) Side effects [...] and denies any further questions. 30 minutes /es/ Husam Maynard M.D., Ph.D. STAFF PSYCHIATRIST Signed: 03/12/2023 16:33 HUSAM MAYNARD V [facility]
--- OUTSIDE RECORDS SUMMARY | 2023-08-05 14:07 | XMS_ITS | Encounter Summary ---
Author Name Department of [facility] Organization Department of [facility] Address [address] [place] [address] Support Name Relationship Address Phone ANTOINE SKELTON Next of Kin , RADHA [address] [place], [place] Emergency Contact , [place] ANTOINE SKELTON Next of Kin , [place] [address] [place], [place]IE Emergency Contact , [place] Insurance Providers: All historical and current Section [...] AID (WNR) Aug 08, 2013 MEDICAI D [id number] DERICK SKELTON PATIENT MEDICARE (WNR) MEDICARE (M) PART A Sep 07, 2016 PART A [id number] DERICK SKELTON PATIENT Selected Encounter This section includes the information on record at [place] for the Encounter. Date/Time Encounter Type Encounter Description Reason Pro vider Source Mar 05, 2023 09:00 AM Outpatient Encounter MENTAL [facility] IHE Encounter Template Text not used by [facility] Plan of Treatment: Future Appointments (+ 6 months) and Future Tests (+/- 45 days) The Plan of Treatment section includes future care activities for the patient from all [place] treatmentfacilities. This section includes future appointments and future orders which are active, pending or scheduled. Future Appointments This section includes appointments that were scheduled to occur 6 months from the date of the Encounter, up to a maximum of 20 appointments. The data comes from all [place] treatment facilities. Appointment Date/Time Appointment Type Appointme nt Facility Name Mar 12, 2023 09:00 AM AMBULATORY - PS[facility]IATRY [facility] Apr 01, 2023 09:15 AM [facility] Apr 01, 2023 10:15 AM [facility] Apr 08, 2023 09:30 AM [facility] Apr 22, 2023 07:00 AM [facility] May 01, 2023 09:00 AM [facility] Jun 04, 2023 09:00 AM [facility] Jun 04, 2023 09:15 AM [facility] July 16, 2023 09:00 AM AMBULATORY - PSYCHIATRY [facility] Lab Results: +/- 30 days of the encounter This section includes the Chemistry and Hematology Lab Results on record with [facility] for the patient. Radiology Reports and Pathology [...] Aug 20, 2022 09:56 AM Reporting Lab: [facility] [id number] Performing Lab: [facility] [id number] B 12 1040 H 213-816 Apr 01, 2023 09:26 AM [facility] FOLATE Specimen Type: SERUM No comment entered. Ordering Provider: KAREN DOVE Report Released Date/Time: Aug 20, 2022 09:56 AM Reporting Lab: [facility] [id number] Performing Lab: [facility] [id number] FOLATE 13.6 >7.0 Apr 01, 2023 09:26 AM [facility] VIT D 25-OH,TOTAL Specimen Type: SERUM No comment entered. Ordering Provider: KAREN DOVE Report Released Date/Time: Aug 20, 2022 09:56 AM Reporting Lab: [facility] [id number] Performing Lab: [facility] [id number] VIT D 25-OH,TOTAL 36 12-50 Apr 01, 2023 09:26 AM [facility] CBC Specimen Type: BLOOD No comment entered. Ordering Provider: KAREN DOVE Report Released Date/Time: Aug 20, 2022 09:56 AM Reporting Lab: [facility] [id number] Performing Lab: [facility] [id number] WBC 6.26 4.0-11.0 RBC 3.02 L 4.6-6.2 [...] Aug 20, 2022 09:56 AM Reporting Lab: [facility] [id number] Performing Lab: [facility] [address] CREATININE 1.4 H 0.7-1.2 UREA NITROGEN 16 [...] Apr 01, 2023 10:44 AM Reporting Lab: [facility] [id number] Performing Lab: [facility] [id number] IRON 35 L 65-175 TIBC,CALCULATED 381 250-425 FERRITIN 16.8 L 21.8-274.7 IRON SATURATION 9 L 20-50 TRANSFERRIN [phone] Apr 01, 2023 09:26 AM [facility] RETICS Specimen Type: BLOOD Comment: Specimen received is PLASMA. Ordering Provider: KAREN DOVE Report Released Date/Time: Apr 01, 2023 10:44 AM Reporting Lab: [facility] [id number] Performing Lab: [facility] [address] ABS RETIC 0.0416 0.0300-0.1 000 .RETICULOCYTE 1.39 0.6-2.0 IMMATURE RETIC 16.6 H 1.0-14.0 .RETICULOCYTE HE 25.4 L 28.2-36.6 Social History: Smoking Status (Most current) and Tobacco Use (All prior to encounter date) This section includes the most current, and the historical, smoking and tobacco- related health factors from the [place] facility where the Encounter took place. Current Smoking Status This section includes the most current smoking, or tobacco-related health factor, from the [place] facility where the Encounter took place. Date/Time Current Smoking Status Comment Silvia adkins Aug 20, 2022 09:15 AM VA-TOBACCO USER EVERY DAY [facility] Tobacco Use History This section includes a history of the smoking, or tobacco-related health factors, that were collected on or before the date of the Encounter. The data comes from the [place] facility where the Encounter took place. Date/Time Smoking Status/Tobacco Use Comment F acility Aug 20, 2022 09:15 AM VA-TOBACCO USE ADVICE [facility] Aug 20, 2022 09:15 AM VA-TOBACCO USE CHILI POWDER MIXER NO [facility] Aug 20, 2022 09:15 [...] Sep 12, 2021 09:15 AM VA-TOBACCO USE CHILI POWDER MIXER NO [facility] Sep 12, 2021 09:15 [...] Sep 01, 2020 01:30 PM VA-TOBACCO USE CHILI POWDER MIXER NO [facility] Sep 01, 2020 01:30 PM VA-TOBACCO USE MED NO [facility] Sep 01, 2020 01:30 PM VA-TOBACCO USER EVERY DAY [facility] Sep 27, 2019 09:35 AM VA-TOBACCO USE 30 YEARS OR MORE [facility] Sep 27, 2019 09:35 AM VA-TOBACCO USE ADVICE [facility] Sep 27, 2019 09:35 AM VA-TOBACCO USE CHILI POWDER MIXER NO [facility] Sep 27, 2019 09:35 [...] Mar 04, 2018 01:45 PM VA-TOBACCO USE CHILI POWDER MIXER NO [facility] Mar 04, 2018 01:45 [...] 08:42 AM CURRENT TOBACCO USER [facility] Encounter Notes: All associated encounter notes This section contains the clinical notes associated to the Encounter. Date/Time Encounter Note(s) Provider Source Mar 05, 2023 10:24 AM NO SHOW NOTE: LOCAL TITLE: NO SHOW NOTE STANDARD TITLE: NO SHOW NOTE DATE OF NOTE: MAR 05, 2023@10:24 ENTRY DATE: MAR 05, 2023@10:24:17 AUTHOR: HUSAM ALICEA V EXP COSIGNER: URGENCY: STATUS: COMPLETED Patient did not appear for scheduled appointment. Risk Factors: ptsd, isolative Protective Factors: own appartment; follow intermittently; no recent evidence of worsening Clinician Judgment of Risk: low Plan Based on Clinician Judgment of Risk: per protocol; left AM message to rechhedule. /marli/ Husam Alicea M.D., Ph.D. STAFF PSYCHIATRIST Signed: 03/05/2023 10:30 HUSAM ALICEA V [facility]
--- OUTSIDE RECORDS SUMMARY | 2023-08-05 14:08 | XMS_ITS | Encounter Summary ---
Author Name [facility] Organization [facility] of [facility] Address [address] [place] [address] Support Name Relationship Address Phone ANTOINE SKELTON Next of Kin , [place] [address] [address] [place] Emergency Contact , [place] [phone] ANTOINE SKELTON Next of Kin , [place] [address] [place], [place] Emergency Contact , [place] Insurance [...] AID (WNR) Aug 08, 2013 MEDICAI D [id number] [phone] DERICK SKELTON PATIENT MEDICARE (WNR) MEDICARE (M) PART A Sep 07, 2016 PART A [id number] [phone] DERICK SKELTON PATIENT Selected Encounter This section includes the information on record at CT for the Encounter. Date/Time Encounter Type Encounter Description Reason Pro vider Source May 01, 2023 09:00 AM Outpatient Encounter [facility] Encounter Template Text not used by CT Plan of Treatment: Future Appointments (+ 6 months) and Future Tests (+/- 45 days) The Plan of Treatment section includes future care activities for the patient from all [place] treatmentfacilities. This section includes future appointments and future orders which are active, pending or scheduled. Future Appointments This section includes appointments that were scheduled to occur 6 months from the date of the Encounter, up to a maximum of 20 appointments. The data comes from all [place] treatment facilities. Appointment Date/Time Appointment Type Appointme nt Facility Name Jun 04, 2023 09:00 AM [facility] Jun 04, 2023 09:15 AM [facility] July 16, 2023 09:00 AM [facility] Sep 23, 2023 08:15 AM AM[facility] - NONE [facility] Sep 23, 2023 09:15 AM AMBULATORY - MEDICINE [facility] Active, Pending, and Scheduled Orders This section includes a listing of several types of active, pending, and scheduled orders, including clinic medications orders, diagnostic test orders, procedure orders and consult orders; where the start date of the order is 45 days before the date of the Encounter or 45 days after the date of theEncounter. The [facility]. Test Date/Time Test Type Test Details Facility Name Apr 29, 2023 12:00 AM Laboratory - Chemi stry Order BASIC METABOLIC PANEL+MG PLASMA SP ONCE [facility] Apr 29, 2023 12:00 AM Laboratory - Chemi stry Order CBC BLOOD SP [facility] Social History: Smoking Status (Most current) and Tobacco Use (All prior to encounter date) This section includes the most current, and the historical, smoking and tobacco- related health factors from the CT facility where the Encounter took place. Current Smoking Status This section includes the most current smoking, or tobacco-related health factor, from the [place] facility where the Encounter took place. Date/Time Current Smoking Status Comment Facil ity Aug 20, 2022 09:15 AM VA-TOBACCO USE WI 30 MIN OF WAKE UP [facility] Tobacco Use History This section includes a history of the smoking, or tobacco-related health factors, that were collected on or before the date of the Encounter. The data comes from the CT facility where the Encounter took place. Date/Time Smoking Status/Tobacco Use Comment F acility Aug 20, 2022 09:15 AM VA-TOBACCO USE ADVICE [facility] Aug 20, 2022 09:15 AM VA-TOBACCO USE DOPE MIXER NO [facility] Aug 20, 2022 09:15 [...] Sep 12, 2021 09:15 AM VA-TOBACCO USE DOPE MIXER NO [facility] Sep 12, 2021 09:15 [...] Sep 01, 2020 01:30 PM VA-TOBACCO USE DOPE MIXER NO [facility] Sep 01, 2020 01:30 PM VA-TOBACCO USE MED NO [facility] Sep 01, 2020 01:30 PM VA-TOBACCO USER EVERY DAY [facility] Sep 27, 2019 09:35 AM VA-TOBACCO USE 30 YEARS OR MORE [facility] Sep 27, 2019 09:35 AM VA-TOBACCO USE ADVICE [facility] Sep 27, 2019 09:35 AM VA-TOBACCO USE DOPE MIXER NO [facility] Sep 27, 2019 09:35 [...] Mar 04, 2018 01:45 PM VA-TOBACCO USE DOPE MIXER NO [facility] Mar 04, 2018 01:45 [...] 08:42 AM CURRENT TOBACCO USER [facility] Pathology Reports: +/- 30 days of the [...] the Encounter. The data comes from all [facility] facilities. Date/Time Pathology Report Provider Source Apr 09, 2023 02:30 PM LR SURGICAL PATHOL OGY REPORT: LOCAL TITLE: LR SURGICAL PATHOLOGY REPORT STANDARD TITLE: PATHOLOGY REPORT DATE OF NOTE: APR 09, 2023@14:30:01 ENTRY DATE: APR 09, 2023@14:30:01 AUTHOR: ANDERSON ZAMORA EXP COSIGNER: URGENCY: STATUS: COMPLETED $APHDR Reporting Lab: [facility] [CLIA# [id number]] [place] [address] - - - - - - - [...] - - - POSTOPERATIVE DIAGNOSIS: Surgeon/physician: SOWMYA TURNER MD =-=-=-=-=-=-=-=-=-=-=-=-=-= -=-=-=-=-=-=-=-=-=-=-=-=-=- =-=-=-=-=-=-=-=-=-=-=-=-= - - - [...] 0.3 cm in greatest dimension. [facility]: Microscopic examination performed. BB DIAGNOSIS: 1. Stomach, antrum body, biopsy-- - Reactive gastropathy - H. pylori stain: Negative 2. 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 - No evidence of dysplasia or malignancy /marli/ ANDERSON ZAMORA MD STAFF PATHOLOGIST Signed Apr 09, 2023@14:30 Performing Laboratory: Surgical Pathology Report Performed By: [facility] [CLIA# [id number]] [place] [address] $FTR - - - - - - - - - - - - - - - - - - - - - - - - - - - - - - - - - - - - - - - - (End of report) ANDERSON ZAMORA MD b Date Apr 09, 2023 - - - - - - - - - - - - - - - - - - - - - - - - - - - - - - - - - - - - - - - - FRANCES SKELTON STANDARD FORM 515 ID:[id number] SEX:M :[id number] AGE: 72 LOC:MSP GI COLONOSCOPY A PCP: Glen Boone MD /marli/ ANDERSON ZAMORA MD STAFF PATHOLOGIST Signed: 04/09/2023 14:30 ANDERSON ZAMORA [facility] Encounter Notes: All associated encounter notes This section contains the clinical notes associated to the Encounter. Date/Time Encounter Note(s) Provider Source May 01, 2023 01:03 PM NO SHOW NOTE: LOCAL TITLE: NO SHOW/CANCELLATION CLINIC NOTE STANDARD TITLE: NO SHOW NOTE DATE OF NOTE: MAY 01, 2023@13:03 ENTRY DATE: MAY 01, 2023@13:03:49 AUTHOR: JOSE BULLOCK EXP COSIGNER: URGENCY: STATUS: COMPLETED not seen for scheduled appointment due to: No Show [facility]SP PACT CHANTEL/GOOD GALLARDO phone for blood pressure follow up Appointment Rescheduled: No, secure message sent to patient. PACT MSA please no show the above appointment /marli/ JOSE BULLOCK RN REGISTERED NURSE Signed: 05/01/2023 13:05 Receipt Acknowledged By: 05/06/2023 15:40 /marli/ JOSE Baker [facility]
--- OUTSIDE RECORDS SUMMARY | 2023-08-05 14:08 | XMS_ITS | Encounter Summary ---
Author Name Department of Vetera [facility] Organization Department of Vetera Affairs Address [address] [place] [address] Support Name Relationship Address Phone ANTOINE SKELTON Next of Kin , RADHA [address] [address] Emergency Contact , [place] ANTOINE SKELTON Next of Kin , RADHA [address] CAR[address] CHAVEZ Emergency Contact , [place] Insurance Providers: All [...] AID (WNR) Aug 08, 2013 MEDICAI D [id number] [phone] DERCIK SKELTON PATIENT MEDICARE (WNR) MEDICARE (M) PART A Sep 07, 2016 PART A [id number] DERICK SKELTON PATIENT Selected Encounter This section includes the information on record at [place] for the Encounter. Date/Time Encounter Type Encounter Description Reason Provider Source Apr 01, 2023 10:15 AM OFFICE O/P EST HI 40 MIN PRIMARY CARE/MEDICINE ICD-10-CM Z71.6 Tobacco abuse counseling KAREN DOVE E Encounter Template Text not used by [place] Assessments - Encounter Diagnoses This section includes the primary and secondary diagnoses documented for the Encounter. Date/Time Primary/Secondary Diagnosis Diagnosis Name Provider Source Apr 01, 2023 12:34 PM PRIMARY Tobacco abuse counseling KAREN DOVE [facility] Apr 01, 2023 12:34 PM SECONDARY Alcohol abuse, uncomplicated KAREN DOVE [facility] Apr 01, 2023 12:34 PM SECONDARY Chronic kidney disease, unspecified KAREN DOVE [facility] Apr 01, 2023 12:34 PM SECONDARY Deficiency of other specified B group vitamins KAREN DOVE [facility] Apr 01, 2023 12:34 PM SECONDARY Essential (primary) hypertension KAREN DOVE [facility] Apr 01, 2023 12:34 PM SECONDARY Hypokalemia KAREN DOVE [facility] Apr 01, 2023 12:34 PM SECONDARY Nutritional anemia, unspecified KAREN DOVE [facility] Apr 01, 2023 12:34 PM SECONDARY Personal history of colonic polyps KAREN DOVE [facility] Apr 01, 2023 12:34 PM SECONDARY Vitamin D deficiency, unspecified KAREN DOVE [facility] Plan of Treatment: Future Appointments (+ 6 months) and Future Tests (+/- 45 days) The Plan of Treatment section includes future care activities for the patient from all [facility]. This section includes future appointments and future orders which are active, pending or scheduled. Future Appointments This section includes appointments that were scheduled to occur 6 months from the date of the Encounter, up to a maximum of 20 appointments. The data comes from all [facility]. Appointment Date/Time Appointment Type Appointme nt Facility Name Apr 08, 2023 09:30 AM AMBULATORY - MEDICINE [facility] Apr 22, 2023 07:00 AM AMBULATORY - NONE [facility] May 01, 2023 09:00 AM AMBULATORY - MEDICINE [facility] Jun 04, 2023 09:00 AM [facility] Jun 04, 2023 09:15 AM AMBULATORY - MEDICINE [facility] July 16, 2023 09:00 AM [facility] Sep 23, 2023 08:15 AM AMBULATORY - NONE [facility] Sep 23, 2023 09:15 AM AMBULATORY - MEDICINE [facility] Active, Pending, and Scheduled Orders This section includes a listing of several types of active, pending, and scheduled orders, including clinic medications orders, diagnostic test orders, procedure orders and consult orders; where the start date of the order is 45 days before the date of the Encounter or 45 days after the date of theEncounter. The data comes from all [facility]. Test Date/Time Test Type Test Details Facility Name Apr 29, 2023 12:00 AM Laboratory - Chemi stry Order BASIC METABOLIC PANEL+MG PLASMA SP ONCE [facility] Apr 29, 2023 12:00 AM Laboratory - Chemi stry Order CBC BLOOD SP [facility] Lab Results: +/- 30 days of the encounter This section includes the Chemistry and Hematology Lab Results on record with [place] for the patient. Radiology Reports and Pathology Reports are provided separately, in subsequent sections. Lab Results This section contains the Chemistry/Hematology Results that were resulted 30 days before or 30 daysafter the date of the Encounter. Date/Time Source Result Type Result - Unit Interpretation Reference Range Comment Apr 01, 2023 09:26 AM [facility] B 12 Specimen Type: SERUM No comment entered. Ordering Provider: KAREN DOVE Report Released Date/Time: Aug 20, 2022 09:56 AM Reporting Lab: [facility] [id number] Performing Lab: [facility] [id number] B 12 1040 H 213-816 Apr 01, 2023 09:26 AM [facility] FOLATE Specimen Type: SERUM No comment entered. Ordering Provider: KAREN DOVE Report Released Date/Time: Aug 20, 2022 09:56 AM Reporting Lab: [facility] [id number] Performing Lab: [facility] [address] FOLATE 13.6 >7.0 Apr 01, 2023 09:26 AM [facility] VIT D 25-OH,TOTAL Specimen Type: SERUM No comment entered. Ordering Provider: KAREN DOVE Report Released Date/Time: Aug 20, 2022 09:56 AM Reporting Lab: [facility] [id number] Performing Lab: [facility] [address] VIT D 25-OH,TOTAL 36 12-50 Apr 01, 2023 09:26 AM [facility] CBC Specimen Type: BLOOD No comment entered. Ordering Provider: KAREN DOVE Report Released Date/Time: Aug 20, 2022 09:56 AM Reporting Lab: [facility] [address] Performing Lab: [facility] [address] WBC 6.26 4.0-11.0 RBC 3.02 L 4.6-6.2 HGB 8.9 L 13.5-17.9 HCT 28.2 L 41-54 MCV 93.4 80-100 MCH 29.5 27-33 MCHC 31.6 L 32.0-37.5 PLT 189 150-400 MPV 10.3 7.4-10.4 RDW 15.9 H 11.5-14.5 Apr 01, 2023 09:26 AM [facility] COMPREHENSIVE METABOLIC PANEL+MG Specimen Type: PLASMA No comment entered. Ordering Provider: KAREN DOVE Report Released Date/Time: Aug 20, 2022 09:56 AM Reporting Lab: [facility] [id number] Performing Lab: [facility] [address] CREATININE 1.4 H 0.7-1.2 UREA NITROGEN 16 [...] L >60 Apr 01, 2023 09:26 AM [facility] RETICS Specimen Type: BLOOD Comment: Specimen received is PLASMA. Ordering Provider: KAREN DOVE Report Released Date/Time: Apr 01, 2023 10:44 AM Reporting Lab: [facility] [id number] Performing Lab: [facility] [address] ABS RETIC 0.0416 0.0300-0.1 000 .RETICULOCYTE 1.39 0.6-2.0 IMMATURE RETIC 16.6 H 1.0-14.0 .RETICULOCYTE HE 25.4 L 28.2-36.6 Apr 01, 2023 09:26 AM [facility] IRON GROUP Specimen Type: SERUM Comment: Specimen received is PLASMA. Ordering Provider: KAREN DOVE Report Released Date/Time: Apr 01, 2023 10:44 AM Reporting Lab: [facility] [id number] Performing Lab: [facility] [phone] IRON 35 L 65-175 TIBC,CALCULATED 381 250-425 FERRITIN 16.8 L 21.8-274.7 IRON SATURATION 9 L 20-50 TRANSFERRIN 305 163-382 Vital Signs: All taken on the encounter date This section contains inpatient and outpatient Vital Signs collected on the date of the Encounter. Date/Time Temperature Pulse Blood Pressure Respiratory Rate SP02 Pain Height Weight Body Mass Index Source Apr 01, 2023 10:46 AM 157/69 mm[Hg] [facility] Apr 01, 2023 10:27 AM 98.3 F 54 /min 161/78 mm[Hg] 18 /min 100 % 0 71 in 142 lb 20 [facility] Social History: Smoking Status (Most current) and Tobacco Use (All prior to encounter date) This section includes the most current, and the historical, smoking and tobacco- related health factors from the [place] facility where the Encounter took place. Current Smoking Status This section includes the most current smoking, or tobacco-related health factor, from the [place] facility where the Encounter took place. Date/Time Current Smoking Status Comment Silvia adkins Aug 20, 2022 09:15 AM VA-TOBACCO USER EVERY DAY [facility] Tobacco Use History This section includes a history of the smoking, or tobacco-related health factors, that were collected on or before the date of the Encounter. The data comes from the [place] facility where the Encounter took place. Date/Time Smoking Status/Tobacco Use Comment F acility Aug 20, 2022 09:15 AM VA-TOBACCO USE ADVICE [facility] Aug 20, 2022 09:15 AM VA-TOBACCO USE NEWS ASSIGNMENT EDITOR NO [facility] Aug 20, 2022 09:15 AM VA-TOBACCO USE MED NO [facility] Aug 20, 2022 09:15 AM VA-TOBACCO USE WI 30 MIN OF WAKE UP [facility] Aug 20, 2022 09:15 AM VA-TOBACCO USER EVERY DAY [facility] Sep 12, 2021 09:15 AM VA-TOBACCO USE 30 YEARS OR MORE [facility] Sep 12, 2021 09:15 AM VA-TOBACCO USE ADVICE [facility] Sep 12, 2021 09:15 AM VA-TOBACCO USE NEWS ASSIGNMENT EDITOR NO [facility] Sep 12, 2021 09:15 AM VA-TOBACCO USE MED NO [facility] Sep 12, 2021 09:15 AM VA-TOBACCO USE WI 30 MIN OF WAKE UP [facility] Sep 12, 2021 09:15 AM VA-TOBACCO USER EVERY DAY [facility] Sep 01, 2020 01:30 PM VA-TOBACCO DOESNT USE WI 30 MIN WAKEUP [facility] Sep 01, 2020 01:30 PM VA-TOBACCO USE 30 YEARS OR MORE [facility] Sep 01, 2020 01:30 PM VA-TOBACCO USE ADVICE [facility] Sep 01, 2020 01:30 PM VA-TOBACCO USE NEWS ASSIGNMENT EDITOR NO [facility] Sep 01, 2020 01:30 PM VA-TOBACCO USE MED NO [facility] Sep 01, 2020 01:30 PM VA-TOBACCO USER EVERY DAY [facility] Sep 27, 2019 09:35 AM VA-TOBACCO USE 30 YEARS OR MORE [facility] Sep 27, 2019 09:35 AM VA-TOBACCO USE ADVICE [facility] Sep 27, 2019 09:35 AM VA-TOBACCO USE NEWS ASSIGNMENT EDITOR NO [facility] Sep 27, 2019 09:35 AM VA-TOBACCO USE MED NO [facility] Sep 27, 2019 09:35 AM VA-TOBACCO USE WI 30 MIN OF WAKE UP [facility] Sep 27, 2019 09:35 AM VA-TOBACCO USER EVERY DAY [facility] Mar 04, 2018 01:45 PM VA-TOBACCO USE 30 YEARS OR MORE [facility] Mar 04, 2018 01:45 PM VA-TOBACCO USE ADVICE [facility] Mar 04, 2018 01:45 PM VA-TOBACCO USE NEWS ASSIGNMENT EDITOR NO [facility] Mar 04, 2018 01:45 PM VA-TOBACCO USE MED NO [facility] Mar 04, 2018 01:45 PM VA-TOBACCO USE WI 30 MIN OF WAKE UP [facility] Mar 04, 2018 01:45 PM VA-TOBACCO USER EVERY DAY [facility] Apr 22, 2017 10:01 AM CURRENT TOBACCO USER [facility] Apr 16, 2016 09:52 AM CURRENT TOBACCO USER [facility] July 26, 2014 09:08 AM CURRENT TOBACCO USER [facility] Dec 31, 2013 10:06 AM CURRENT TOBACCO USER [facility] Sep 05, 2012 09:27 AM CURRENT TOBACCO USER [facility] Nov 25, 2011 09:12 AM CURRENT TOBACCO USER [facility] Feb 08, 2011 10:04 AM CURRENT TOBACCO USER [facility] May 01, 2010 10:24 AM CURRENT TOBACCO USER [facility] Jul 03, 2009 08:42 AM CURRENT TOBACCO USER [facility] Pathology Reports: +/- 30 days of the [...] the Encounter. The data comes from all [facility] facilities. Date/Time Pathology Report Provider Source Apr 09, 2023 02:30 PM LR SURGICAL PATHOL OGY REPORT: LOCAL TITLE: LR SURGICAL PATHOLOGY REPORT STANDARD TITLE: PATHOLOGY REPORT DATE OF NOTE: APR 09, 2023@14:30:01 ENTRY DATE: APR 09, 2023@14:30:01 AUTHOR: ANDERSON ZAMORA EXP COSIGNER: URGENCY: STATUS: COMPLETED $APHDR Reporting Lab: [facility] [CLIA# [id number]] [place] [address] - - - - - - - [...] 0.3 cm in greatest dimension. [place] (D[place] [facility] [place]OSCOPIC DESCRIPTION: Microscopic examination performed. BB DIAGNOSIS: 1. Stomach, antrum body, biopsy-- - Reactive gastropathy - H. pylori stain: Negative 2. 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 - No evidence of dysplasia or malignancy /es/ ANDERSON ZAMORA MD STAFF PATHOLOGIST Signed Apr 09, 2023@14:30 Performing Laboratory: Surgical Pathology Report Performed By: [facility] [CLIA# [id number]] [place] [address] $FTR - - - - - - - - - - - - - - - - - - - - - - - - - - - - - - - - - - - - - - - - (End of report) ANDERSNO ZAMORA MD bcb Date Apr 09, 2023 - - - - - - - - - - - - - - - - - - - - - - - - - - - - - - - - - - - - - - - - FRANCES SKELTON STANDARD FORM 515 ID:[id number] SEX:M :1950 AGE: 72 LOC:MSP GI COLONOSCOPY A PCP: Karen Dove MD /marli/ ANDERSON ZAMORA MD STAFF PATHOLOGIST Signed: 04/09/2023 14:30 ANDERSON ZAMORA [facility] Encounter Notes: All associated encounter notes This section contains the clinical notes associated to the Encounter. Date/Time Encounter Note(s) Provider Source Jun 20, 2023 12:23 PM ADDENDUM: LOCAL TITLE: Addendum STANDARD TITLE: ADDENDUM DATE OF NOTE: JUN 20, 2023@12:23:23 ENTRY DATE: JUN 20, 2023@12:23:24 AUTHOR: KAYLA XIE COSIGNER: URGENCY: STATUS: COMPLETED Received request from agency for authorizationto increase skilled nurse visits (SNV) from [EOW to weekly]. [facility] RN will Informed agency that request has been denied at this time. Per [place] guidance, requested service is considered a general health assessment (GHA), which is not a [place] covered service. Patients must have a skilled clinical need in order to receive SNV. [facility] RN contacted agency Nurse Tiffany and educated her on the the use of PRN visits that are covered under current authorization. GHA & education on pressure sore prevention. Nurse Allen verbalized understanding and expressed that the has issues with transportation, his ability to follow up with his medical care needs and he is a fall risk. Pact team: may benefit from services /marli/ NIGEL BLANDON SMOKING PIPES CLEANER CARE PRODUCTION CONTROL EXPERT Signed: 06/20/2023 12:37 Receipt Acknowledged By: 06/20/2023 13:42 /es/ NIGEL Morrow RN REGISTERED NURSE for JOSE BULLOCK 06/20/2023 12:42 /es/ KAREN DOVE MD PHYSICIAN, [facility] --- Original Document --- 04/01/23 MEDICINE CLINIC NOTE: MEDICINE CLINIC NOTE ASSESSMENT AND PLAN #MILES and melena: GI, stop EtOH, stop celecoxib, hold alcohol, recheck labs in 1 month #CKD IIIA: slowly worsening over past year, low suspicion for retention as he is s/p prostatectomy, will have him hold celecoxib and repeat BMP in 1 month #HTN: Monitor at home w/ PACT RN f/u in 1 month #Hypovitaminosis D: vitamin D, recheck shows resolution #Mildly elevated AST: suspect related to EtOH use, suggested cessation, recheck shows resolution #B12 deficiency: remains on B12 supplement, recheck shows improvement #Alcohol use disorder: Advised cessation previously and again today. Remains on folate, pyridoxine and thiamine. #Hypokalemia: suspect 2/2 EtOH, hold alcohol and recheck in 1 month CHRONIC #Osteopenia per 10/2022 DEXA #PCL avulsion Fx, left, 06/2022: non-operative management, [facility], following w/ outside [facility]. Will refer to PT for Rollator. #Falls, impaired mobility Likely driven by of his severe lower extremity neuropathy. He has been provided assistive devices in the past as well as OT home evaluation. Generally the falls occur when he is not using these. Prior electric mobility consult declined. #Macrocytic anemia Suspect this is related to alcohol use. Broad w/u previously normal, including SPEP, kappa, lambda. Smear nonspecific. 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 #EMG-proven bilateral lower extremity neuropathy W/u includes normal SPEP, B12, A1c. Possibly 2/2 EtoH; continues to drink 4 beers per day. Minimal improvement with gabapentin and pregabalin; previously declined trying these again. -on duloxetine -electric wheelchair #Chronic low back pain Some spondylosis on imaging, but per pain clinic eval 06/2021, degree of pain more than they would expect on imaging (MRI 02/2021). Suspect nociplastic component. Previously offered PT, acupuncture, etc by pain clinic. NSAID not ideal given gastritis, EtOH use. Also has lidocaine patch. #History of prostate cancer status post radical retroprostatectomy 2012 complicated by incontinence; repeat PSA OK 08/2022. #Calf pain w/ ambulation: Suspect PVD, previously ordered ABIs but not pursued by patient #Gastritis (suspected NSAID-induced 2013), history of H. 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 He has received Botox injections at the GE junction. Status post speech pathology evaluation in September 2019 only notable for mild oropharyngeal dysphagia. #HSV: Acyclovir #Insomnia and PTSD: Olanzapine 2.5 mg nightly, trazodone 150 mg nightly, follows w/ MH #Anxiety and depression: atenolol 25 mg daily, duloxetine 90 mg daily RHM -CRC: last colonoscopy 06/21/2013 w/ repeat due June 2023 for screening purposes, will obtain FIT test if GI does not pursue colonoscopy -tobacco: less then 1 ppd, >40 years (started around 26), repeat lung cancer screening due 08/2023 -PSA: as above RTC: 6 months Karen Dove MD General Internal Medicine [facility] A total of 42 minutes was spent on this visit reviewing previous notes, counseling the patient, ordering or interpreting tests, adjusting meds, and documenting the findings in the note. CC: Annual HPI Patient presents for his annual. He suspects been doing altogether fairly well recently. His main concerns today are to get some orders from the [facility] for a lift chair as well as some new shoes for his peripheral neuropathy. His hemoglobin has been dropping, and review of systems is notable for intermittent black stools for the past month or so. He does not take iron on a regular basis. He does take some Tylenol and celecoxib but no ibuprofen. The black stools may happen twice per week on average. He has some nausea in the morning but this has been going on for years, no vomiting. No blood in his urine. The most recent episode of melena was yesterday, he has not had any today as his bowel movement was normal. He says he is otherwise feeling well and does not feel short of breath or dizzy unless he stands up quickly, which is not new for him. His blood pressure is elevated and he is not sure how long that has been a problem. He is going to follow-up with the nurse in a month to see how its going. He does continue to drink alcohol, probably 2-4 beers per day. He says he goes through 12 pack about once per week. He does not think he would have any trouble stopping quitting from a withdrawal standpoint. UPDATED PROBLEM LIST Active problems - Computerized Problem List is the source for the followin. Heavy tobacco smoker (SNOMED CT 566992369248929) 2. Depression (SNOMED CT 63848539) 3. Chronic post-traumatic stress disorder following combat (SNOMED CT 4. Idiopathic chronic neuropathy (SNOMED CT 689974979) - EMG-proven 5. Lumbar spondylosis 6. Prostate Cancer (SCT 528750474) - status post radical retroprostatectomy 2012 complicated by incontinence 7. 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 Osteopenia - per 10/2022 DEXA 9. Recurrent falls - Likely driven by of his severe lower extremity neuropathy 10. Alcohol Abuse (SCT 36050853) 11. Gastritis - suspected NSAID-induced 2013 +/- EtOH: remains on PPI 12. COPD - Chronic Obstructive Pulmonary Disease (SCT 57136402) 13. History of Polyp of Colon (SCT 163595398) - last colonoscopy 06/21/2013 notable for hyperplastic polyp w/ repeat due June 2023 for screening purposes 14. 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 Insomnia (SCT 441106084) 16. Vitamin D deficiency 17. Vitamin B12 deficiency (non anemic) MEDICATION RECONCILATION Education Evaluations *Was medication education provided for NEW medications or CHANGES to medications? (including medication name, dose, route, reason for use, and potential side effects). No new medications or medication changes during this encounter. TERATOGENIC MED & CONTRACEPTION REVIEW (Optional)... MEDICATION [...] Remote Allergy/ADR Data available for this patient [facility] BEE VENOM [facility] BUTORPHANOL Active and Recently Outpatient Medications (including Supplies): Issue Date Status Last Fill Active Outpatient Medications Refills Expiration 1) ATENOLOL 25MG TAB Qty: 90 for 90 days ACTIVE Issu:11-20-22 Sig: TAKE ONE TABLET BY MOUTH EVERY Refills: 0 Last:02-17-23 DAY FOR ANXIETY FOR ANXIETY Expr:11-21-23 2) BRIEF,TRANQUILITY LESLIE OVERNITE #2114 ACTIVE Issu:01-07-23 Qty: 80 for 30 days Sig: USE BRIEF Refills: 10 Last:03-17-23 DIRECTED Expr:01-08-24 3) CARBOXYMETHYLCELLULOSE NA 0.5% OPH SOLN ACTIVE Issu:08-20-22 Qty: 15 for 30 days Sig: INSTILL 1 Refills: 2 Last:12-27-22 DROP IN BOTH EYES FOUR TIMES A DAY Expr:08-21-23 NEEDED FOR DRY EYES 4) CELECOXIB 100MG CAP Qty: 180 for 90 ACTIVE Issu:03-17-23 days Sig: TAKE ONE CAPSULE BY MOUTH Refills: 0 Last:03-18-23 TWICE A DAY FOR PAIN Expr:06-15-23 5) CHOLECALCIF 25MCG (D3-1,000UNIT) TAB ACTIVE Issu:08-20-22 Qty: 100 for 90 days Sig: TAKE ONE Refills: 2 Last:12-27-22 TABLET BY MOUTH EVERY DAY FOR VITAMIN Expr:08-21-23 D 6) CYANOCOBALAMIN 1000MCG TAB Qty: 100 for ACTIVE Issu:08-22-22 90 days Sig: TAKE ONE TABLET BY MOUTH Refills: 1 Last:02-14-23 EVERY DAY FOR B12 Expr:08-23-23 7) DULOXETINE HCL 30MG EC CAP Qty: 270 for ACTIVE Issu:03-15-23 90 days Sig: TAKE THREE CAPSULES BY Refills: 1 Last:03-18-23 MOUTH EVERY MORNING FOR DEPRESSION Expr:03-15-24 8) EPINEPHRINE (EQV-EPI-PEN) 0.3MG/0.3ML ACTIVE Issu:08-29-22 Qty: 2 for 30 days Sig: INJECT 1 PEN Refills: 11 Last:09-02-22 DIRECTED ONCE NEEDED FOR Expr:08-30-23 ALLERGIC REACTION 9) FOLIC ACID 1MG TAB Qty: 90 for 90 days ACTIVE Issu:03-17-23 Sig: TAKE ONE TABLET BY MOUTH EVERY Refills: 3 Last:03-18-23 DAY Expr:03-17-24 10) LIDOCAINE 5% PATCH Qty: 30 for 30 days ACTIVE Issu:04-02-22 Sig: APPLY 1 PATCH TOPICALLY EVERY DAY Refills: 10 Last:12-27-22 FOR UP TO 12 HOURS FOR PAIN Expr:04-03-23 11) NALOXONE HCL 4MG/SPRAY SOLN NASAL SPRAY ACTIVE Issu:06-27-22 Qty: 2 for 30 days Sig: SPRAY 1 DOSE Refills: 1 Last:07-02-22 IN ONE NOSTRIL DIRECTED FOR Expr:06-28-23 UNRESPONSIVENESS THEN CALL 911 - IF NO CHANGE IN 2-3 MINUTES, GIVE SECOND DOSE IN OPPOSITE NOSTRIL 12) OLANZAPINE 2.5MG TAB Qty: 90 for 90 ACTIVE Issu:03-12-23 days Sig: TAKE ONE TABLET BY MOUTH AT Refills: 1 Last:03-12-23 BEDTIME FOR IRRITABILITY AND SLEEP Expr:03-12-24 13) OLODATEROL/TIOTROP 2.5MCG/ACTUAT 60D INH ACTIVE Issu:08-20-22 Qty: 1 for 30 days Sig: INHALE 2 Refills: 9 Last:01-07-23 PUFFS BY INHALATION EVERY DAY FOR COPD Expr:08-21-23 14) OMEPRAZOLE 20MG EC CAP Qty: 360 for 90 ACTIVE Issu:01-07-23 days Sig: TAKE TWO CAPSULES BY MOUTH Refills: 3 Last:01-08-23 TWICE A DAY ON AN EMPTY STOMACH, AT Expr:01-08-24 LEAST 30 MINUTES PRIOR TO A MEAL TO DECREASE STOMACH ACID 15) OMEPRAZOLE 40MG EC CAP Qty: 180 for 90 ACTIVE Issu:01-06-23 days Sig: TAKE ONE CAPSULE BY MOUTH Refills: 1 Last:01-06-23 TWICE A DAY FOR STOMACH ACID Expr:01-07-24 16) PYRIDOXINE HCL 50MG TAB Qty: 100 for 90 ACTIVE Issu:04-02-22 days Sig: TAKE 1/2 TABLET BY MOUTH Refills: 2 Last:12-27-22 EVERY DAY Expr:04-03-23 17) SILDENAFIL CITRATE 100MG TAB Qty: 6 for ACTIVE Issu:01-28-23 30 days Sig: TAKE ONE TABLET BY MOUTH Refills: 4 Last:03-14-23 EVERY DAY NEEDED 1 HOUR BEFORE Expr:01-29-24 ANTICIPATED SEXUAL ACTIVITY. FOR ERECTIONS. 18) THIAMINE 100MG TAB Qty: 100 for 90 days ACTIVE Issu:04-02-22 Sig: TAKE ONE TABLET BY MOUTH EVERY Refills: 0 Last:12-29-22 DAY Expr:04-03-23 19) TRAZODONE HCL 150MG TAB Qty: 90 for 90 ACTIVE (S) Issu:03-12-23 days Sig: TAKE ONE TABLET BY MOUTH AT Refills: 1 Last:04-28-23 BEDTIME FOR SLEEP Expr:03-12-24 Issue Date Status Last Fill Pending Outpatient Medications Refills Expiration 1) ACYCLOVIR 200MG CAP Qty: 60 Sig: TAKE PENDING TWO CAPSULES BY MOUTH THREE TIMES A Refills: 0 DAY 2) FERROUS GLUCONATE 324MG TAB Qty: 100 PENDING Sig: TAKE ONE TABLET BY MOUTH EVERY Refills: 0 OTHER DAY Issue Date Status Last Fill Inactive Outpatient Medications Refills Expiration 1) ACYCLOVIR 200MG CAP Qty: 30 for 5 days Issu:12-18-22 Sig: TAKE TWO CAPSULES BY MOUTH THREE Refills: 0 Last:12-19-22 TIMES A DAY Expr:01-17-23 2) ALBUTEROL 90MCG (CFC-F) 200D ORAL INHL Issu:01-29-22 Qty: 2 for 50 days Sig: INHALE 2 Refills: 1 Last:12-27-22 PUFFS BY INHALATION FOUR TIMES A DAY Expr:01-30-23 NEEDED FOR IMMEDIATE RELIEF OF SHORTNESS OF BREATH *SHAKE WELL* 3) ATENOLOL 25MG TAB Qty: 90 for 90 days DISCONTINUED Issu:04-02-22 Sig: TAKE ONE TABLET BY MOUTH EVERY Refills: 0 Last:08-31-22 DAY FOR ANXIETY FOR ANXIETY Expr:04-03-23 4) CELECOXIB 100MG CAP Qty: 180 for 90 DISCONTINUED Issu:11-25-22 days Sig: TAKE ONE CAPSULE BY MOUTH Refills: 0 Last:11-26-22 TWICE A DAY FOR PAIN Expr:02-23-23 5) DULOXETINE HCL 20MG EC CAP Qty: 120 for DISCONTINUED Issu:10-09-22 30 days Sig: TAKE FOUR CAPSULES BY Refills: 0 Last:11-18-22 MOUTH EVERY DAY FOR ANXIETY, PAIN, AND Expr:10-10-23 DEPRESSION 6) DULOXETINE HCL 30MG EC CAP Qty: 270 for Issu:11-20-22 90 days Sig: TAKE THREE CAPSULES BY Refills: 0 Last:11-20-22 MOUTH EVERY MORNING FOR DEPRESSION Expr:02-18-23 7) DULOXETINE HCL 60MG EC CAP Qty: 30 for DISCONTINUED Issu:08-13-22 30 days Sig: TAKE ONE CAPSULE BY (EDIT) Last:09-03-22 MOUTH EVERY DAY FOR ANXIETY FOR Refills: 0 Expr:08-14-23 ANXIETY, PAIN, AND DEPRESSION 8) DULOXETINE HCL 60MG EC CAP Qty: 30 for DISCONTINUED Issu:06-03-22 30 days Sig: TAKE ONE CAPSULE BY Refills: 0 Last:07-09-22 MOUTH EVERY DAY FOR ANXIETY FOR Expr:06-04-23 ANXIETY, PAIN, AND DEPRESSION 9) DULOXETINE HCL 60MG EC CAP Qty: 30 for DISCONTINUED Issu:03-18-22 30 days Sig: TAKE ONE CAPSULE BY Refills: 0 Last:04-22-22 MOUTH EVERY DAY FOR ANXIETY, PAIN, AND Expr:03-19-23 DEPRESSION 10) FOLIC ACID 1MG TAB Qty: 90 for 90 days DISCONTINUED Issu:03-26-22 Sig: TAKE ONE TABLET BY MOUTH EVERY Refills: 0 Last:12-27-22 DAY Expr:03-27-23 11) OLANZAPINE 2.5MG TAB Qty: 30 for 30 DISCONTINUED Issu:11-20-22 days Sig: TAKE ONE TABLET BY MOUTH AT Refills: 1 Last:01-11-23 BEDTIME FOR IRRITABILITY AND SLEEP Expr:11-21-23 12) SILDENAFIL CITRATE 100MG TAB Qty: 6 for DISCONTINUED Issu:04-02-22 30 days Sig: TAKE ONE TABLET BY MOUTH Refills: 0 Last:11-18-22 EVERY DAY NEEDED 1 HOUR BEFORE Expr:04-03-23 ANTICIPATED SEXUAL ACTIVITY. FOR ERECTIONS. 13) SILDENAFIL CITRATE 100MG TAB Qty: 18 DISCONTINUED Issu:01-02-22 for 90 days Sig: TAKE ONE TABLET BY Refills: 3 Last:01-02-22 MOUTH EVERY DAY NEEDED 1 HOUR Expr:01-03-23 BEFORE ANTICIPATED SEXUAL ACTIVITY 14) TRAZODONE HCL 150MG TAB Qty: 90 for 90 DISCONTINUED Issu:01-06-23 days Sig: TAKE ONE TABLET BY MOUTH AT Refills: 0 Last:02-07-23 BEDTIME FOR SLEEP Expr:04-06-23 15) TRAZODONE HCL 50MG TAB Qty: 270 for 90 DISCONTINUED Issu:11-18-22 days Sig: TAKE THREE TABLETS BY MOUTH Refills: 3 Last:11-19-22 AT BEDTIME Expr:11-19-23 36 Total Medications PHYSICAL EXAM VS: Temp: 98.3 F [36.8 C] (04/01/2023 10:27) BP: 157/69 (04/01/2023 10:46) Pulse:54 (04/01/2023 10:27) Resp: 18 (04/01/2023 10:27) Pain: 0 (04/01/2023 10:27) Weight: WEIGHTS IN LAST 6 MONTHS: 142 (APR 01, 2023@10:27:36) General: Sitting in exam room, no acute distress Pulmonary: Clear to auscultation bilaterally, nonlabored breathing Cardiovascular: Regular rate and rhythm, no extra sounds Extremities: No lower extremity edema Abdomen: Nontender, nondistended Gait: Ataxic gait, uses electric scooter to ambulate, able to transfer from chair to scooter on own slowly. LABS and STUDIES WBC: 6.26 RBC: 3.02 L HGB: 8.9 L HCT: 28.2 L MCV: 93.4 MCH: 29.5 MCHC: 31.6 L RDW: 15.9 H PLT: 189 MPV: 10.3 GLUCOSE: 103 H UREA NITROGEN: 16 CREATININE: 1.4 H SODIUM: 138 POTASSIUM: 3.4 L CHLORIDE: 105 CO2: 26 CALCIUM: 8.5 PROTEIN,TOTAL: 6.3 ALBUMIN: 3.3 L BILIRUBIN,TOTAL: 0.3 MAGNESIUM: 1.8 ANION GAP: 7 ALKALINE PHOSPHATASE(37C): 93 SGOT(37C): 24 SGPT(37C): 10 CREATININE EGFR (CKD-EPI): 54 L B 12: 1040 H FOLATE: 13.6 VITAMIN D,TOTAL: 36 RETICULOCYTES, ABSOLUTE: 0.0416 RETICULOCYTE: 1.39 IMMATURE RETIC FRACTION: 16.6 H RETICULOCYTE HE: 25.4 L FERRITIN: 16.8 L TIBC: 381 IRON: 35 L IRON SATURATION: 9 L TRANSFERRIN: 305 /es/ KAREN DOVE MD PHYSICIAN, [facility] Signed: 04/01/2023 12:34 06/19/2023 ADDENDUM STATUS: COMPLETED Millicent, received report from patient's [facility] provider he may be developing a pressure sore on his left buttocks. They are requesting authorization for weekly visits to monitor pressure area. Can you please help athorize? Thanks! fax [phone] phone [phone] /marli/ KAREN DOVE MD PHYSICIAN, [facility] Signed: 06/19/2023 08:58 Receipt Acknowledged By: 06/19/2023 10:28 /es/ JOSE BULLOCK RN REGISTERED NURSE 06/19/2023 ADDENDUM STATUS: COMPLETED Called and spoke with Patricia Brooks home care aide for Vet [phone]. She reports that she is visiting patient today. She states that she had faxed authorization to the home care department requesting weekly skilled nurse visits to monitor a developing pressure area on Vet's buttock's weekly but it was denied. Home Care: [employer] will co sign home care department to make this request for weekly skilled nurse visits to monitor a developing pressure area on Vet's buttocks. [employer] offered to order mepilex bordered foam. She wanted to hold on this until seeing patient today. Provided a direct phone number to call back. Home care-if request is authorized, agency is requesting faxed authorization orders. Dr. Dove: Patricia asked newswriter if Aniat ever had his labs drawn pre-op endoscopy. Shared that he did not. Shared that GI did Vet's H & P. Patricia is concerned about Vet's continued weakness and pain and is asking if it could be considered to have Vet's lab drawn in the community close to home. Vet may not meet drive time but it is a hardship to get Vet out of the house and to appointments as he does not drive and has to arrange transportation. Patricia states that he lives closest to [facility] [place]. She would be able to assist Vet with arranging a ride to a lab appointment if approved. [employer] also offered to move up Vesonia's appt with Dr. Dove which is due in August. This will be considered but Patricia still feels obtaining current lab work now would be helpful. Prior hgb 8.18 Mar 2023. /marli/ JOSE BULLOCK RN REGISTERED NURSE Signed: 06/19/2023 10:26 Receipt Acknowledged By: 06/19/2023 16:24 /marli/ KAREN DOVE MD PHYSICIAN, [facility] 06/20/2023 12:22 /marli/ NIGEL BLANDON S[employer]KING PIPES CLEANER [employer]ODUCTION CONTROL EXPERT 06/20/2023 ADDENDUM STATUS: COMPLETED CITC entered but declined because the patient doesn't meet drivetime critera. [facility] /kelly DOVE MD PHYSICIAN, [facility] Signed: 06/20/2023 08:36 KAYLA XIE [facility] Jun 19, 2023 10:17 AM ADDENDUM: LOCAL TITLE: Addendum STANDARD TITLE: ADDENDUM DATE OF NOTE: JUN 19, 2023@10:17:38 ENTRY DATE: JUN 19, 2023@10:17:39 AUTHOR: JOSE BULLOCK EXP COSIGNER: URGENCY: STATUS: COMPLETED Called and spoke with Patricia Brooks home care aide for [place] [phone]. She reports that she is visiting patient today. She states that she had faxed authorization to the home care department requesting weekly skilled nurse visits to monitor a developing pressure area on Vet's buttock's weekly but it was denied. Home Care: [employer] will co sign home care department to make this request for weekly skilled nurse visits to monitor a developing pressure area on Vet's buttocks. [employer] offered to order mepilex bordered foam. She wanted to hold on this until seeing patient today. Provided a direct phone number to call back. Home care-if request is authorized, agency is requesting faxed authorization orders. Dr. Dove: Patricia asked newswriter if Feli ever had his labs drawn pre-op endoscopy. Shared that he did not. Shared that GI did Vet's H & P. Patricia is concerned about Vet's continued weakness and pain and is asking if it could be considered to have Feli's lab drawn in the community close to home. Aniat may not meet drive time but it is a hardship to get Aniat out of the house and to appointments as he does not drive and has to arrange transportation. Patricia states that he lives closest to [facility] [place]. She would be able to assist Aniat with arranging a ride to a lab appointment if approved. [employer] also offered to move up Feli's appt with Dr. Dove which is due in August. This will be considered but Patricia still feels obtaining current lab work now would be helpful. Prior hgb 8.18 Mar 2023. /es/ JOSE BULLOCK RN REGISTERED NURSE Signed: 06/19/2023 10:26 Receipt Acknowledged By: 06/19/2023 16:24 /es/ KAREN DOVE MD PHYSICIAN, [facility] 06/20/2023 12:22 /es/ NIGEL BLANDON [employer]KING PIP[employer] CLEAN[employer] CONTROL EXPERT --- Original Document --- 04/01/23 MEDICINE CLINIC NOTE: MEDICINE CLINIC NOTE ASSESSMENT AND PLAN #MILES and melena: GI, stop EtOH, stop celecoxib, hold alcohol, recheck labs in 1 month #CKD IIIA: slowly worsening over past year, low suspicion for retention as he is s/p prostatectomy, will have him hold celecoxib and repeat BMP in 1 month #HTN: Monitor at home w/ PACT RN f/u in 1 month #Hypovitaminosis D: vitamin D, recheck shows resolution #Mildly elevated AST: suspect related to EtOH use, suggested cessation, recheck shows resolution #B12 deficiency: remains on B12 supplement, recheck shows improvement #Alcohol use disorder: Advised cessation previously and again today. Remains on folate, pyridoxine and thiamine. #Hypokalemia: suspect 2/2 EtOH, hold alcohol and recheck in 1 month CHRONIC #Osteopenia per 10/2022 DEXA #PCL avulsion Fx, left, 06/2022: non-operative management, [facility], following w/ outside [facility]. Will refer to PT for Rollator. #Falls, impaired mobility Likely driven by of his severe lower extremity neuropathy. He has been provided assistive devices in the past as well as OT home evaluation. Generally the falls occur when he is not using these. Prior electric mobility consult declined. #Macrocytic anemia Suspect this is related to alcohol use. Broad w/u previously normal, including SPEP, kappa, lambda. Smear nonspecific. 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 #EMG-proven bilateral lower extremity neuropathy W/u includes normal SPEP, B12, A1c. Possibly 2/2 EtoH; continues to drink 4 beers per day. Minimal improvement with gabapentin and pregabalin; previously declined trying these again. -on duloxetine -electric wheelchair #Chronic low back pain Some spondylosis on imaging, but per pain clinic eval 06/2021, degree of pain more than they would expect on imaging (MRI 02/2021). Suspect nociplastic component. Previously offered PT, acupuncture, etc by pain clinic. NSAID not ideal given gastritis, EtOH use. Also has lidocaine patch. #History of prostate cancer status post radical retroprostatectomy 2012 complicated by incontinence; repeat PSA OK 08/2022. #Calf pain w/ ambulation: Suspect PVD, previously ordered ABIs but not pursued by patient #Gastritis (suspected NSAID-induced 2013), history of H. 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 He has received Botox injections at the GE junction. Status post speech pathology evaluation in September 2019 only notable for mild oropharyngeal dysphagia. #HSV: Acyclovir #Insomnia and PTSD: Olanzapine 2.5 mg nightly, trazodone 150 mg nightly, follows w/ [facility] #Anxiety and depression: atenolol 25 mg daily, duloxetine 90 mg daily [facility] -CRC: last colonoscopy 06/21/2013 w/ repeat due June 2023 for screening purposes, will obtain FIT test if GI does not pursue colonoscopy -tobacco: less then 1 ppd, >40 years (started around 26), repeat lung cancer screening due 08/2023 -PSA: as above RTC: 6 months Karen Dove MD General Internal Medicine [facility] A total of 42 minutes was spent on this visit reviewing previous notes, counseling the patient, ordering or interpreting tests, adjusting meds, and documenting the findings in the note. CC: Annual HPI Patient presents for his annual. He suspects been doing altogether fairly well recently. His main concerns today are to get some orders from the [facility] for a lift chair as well as some new shoes for his peripheral neuropathy. His hemoglobin has been dropping, and review of systems is notable for intermittent black stools for the past month or so. He does not take iron on a regular basis. He does take some Tylenol and celecoxib but no ibuprofen. The black stools may happen twice per week on average. He has some nausea in the morning but this has been going on for years, no vomiting. No blood in his urine. The most recent episode of melena was yesterday, he has not had any today as his bowel movement was normal. He says he is otherwise feeling well and does not feel short of breath or dizzy unless he stands up quickly, which is not new for him. His blood pressure is elevated and he is not sure how long that has been a problem. He is going to follow-up with the nurse in a month to see how its going. He does continue to drink alcohol, probably 2-4 beers per day. He says he goes through 12 pack about once per week. He does not think he would have any trouble stopping quitting from a withdrawal standpoint. UPDATED PROBLEM LIST Active problems - Computerized Problem List is the source for the followin. Heavy tobacco smoker (SNOMED CT 620555050394783) 2. Depression (SNOMED CT 54888408) 3. Chronic post-traumatic stress disorder following combat (SNOMED CT 4. Idiopathic chronic neuropathy (SNOMED CT 422001785) - EMG-proven 5. Lumbar spondylosis 6. Prostate Cancer (SCT 708715975) - status post radical retroprostatectomy 2012 complicated by incontinence 7. 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 Osteopenia - per 10/2022 DEXA 9. Recurrent falls - Likely driven by of his severe lower extremity neuropathy 10. Alcohol Abuse ([facility] [id number]) 11. Gastritis - suspected NSAID-induced 2013 +/- EtOH: remains on PPI 12. COPD - Chronic Obstructive Pulmonary Disease (SCT 29100484) 13. History of Polyp of Colon ([facility] [id number]) - last colonoscopy 06/21/2013 notable for hyperplastic polyp w/ repeat due June 2023 for screening purposes 14. 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 Insomnia ([facility] [id number]) 16. Vitamin D deficiency 17. Vitamin B12 deficiency (non anemic) MEDICATION RECONCILATION Education Evaluations *Was medication education provided for NEW medications or CHANGES to medications? (including medication name, dose, route, reason for use, and potential side effects). No new medications or medication changes during this encounter. TERATOGENIC MED & CONTRACEPTION REVIEW (Optional)... MEDICATION [...] Remote Allergy/ADR Data available for this patient [facility] BEE VENOM [facility] BUTORPHANOL Active and Recently Outpatient Medications (including Supplies): Issue Date Status Last Fill Active Outpatient Medications Refills Expiration 1) ATENOLOL 25MG TAB Qty: 90 for 90 days ACTIVE Issu:11-20-22 Sig: TAKE ONE TABLET BY MOUTH EVERY Refills: 0 Last:02-17-23 DAY FOR ANXIETY FOR ANXIETY Expr:11-21-23 2) BRIEF,TRANQUILITY LESLIE OVERNITE #2114 ACTIVE Issu:01-07-23 Qty: 80 for 30 days Sig: USE BRIEF Refills: 10 Last:03-17-23 DIRECTED Expr:01-08-24 3) CARBOXYMETHYLCELLULOSE NA 0.5% OPH SOLN ACTIVE Issu:08-20-22 Qty: 15 for 30 days Sig: INSTILL 1 Refills: 2 Last:12-27-22 DROP IN BOTH EYES FOUR TIMES A DAY Expr:08-21-23 NEEDED FOR DRY EYES 4) CELECOXIB 100MG CAP Qty: 180 for 90 ACTIVE Issu:03-17-23 days Sig: TAKE ONE CAPSULE BY MOUTH Refills: 0 Last:03-18-23 TWICE A DAY FOR PAIN Expr:06-15-23 5) CHOLECALCIF 25MCG (D3-1,000UNIT) TAB ACTIVE Issu:08-20-22 Qty: 100 for 90 days Sig: TAKE ONE Refills: 2 Last:12-27-22 TABLET BY MOUTH EVERY DAY FOR VITAMIN Expr:08-21-23 D 6) CYANOCOBALAMIN 1000MCG TAB Qty: 100 for ACTIVE Issu:08-22-22 90 days Sig: TAKE ONE TABLET BY MOUTH Refills: 1 Last:02-14-23 EVERY DAY FOR B12 Expr:08-23-23 7) DULOXETINE HCL 30MG EC CAP Qty: 270 for ACTIVE Issu:03-15-23 90 days Sig: TAKE THREE CAPSULES BY Refills: 1 Last:03-18-23 MOUTH EVERY MORNING FOR DEPRESSION Expr:03-15-24 8) EPINEPHRINE (EQV-EPI-PEN) 0.3MG/0.3ML ACTIVE Issu:08-29-22 Qty: 2 for 30 days Sig: INJECT 1 PEN Refills: 11 Last:09-02-22 DIRECTED ONCE NEEDED FOR Expr:08-30-23 ALLERGIC REACTION 9) FOLIC ACID 1MG TAB Qty: 90 for 90 days ACTIVE Issu:03-17-23 Sig: TAKE ONE TABLET BY MOUTH EVERY Refills: 3 Last:03-18-23 DAY Expr:03-17-24 10) LIDOCAINE 5% PATCH Qty: 30 for 30 days ACTIVE Issu:04-02-22 Sig: APPLY 1 PATCH TOPICALLY EVERY DAY Refills: 10 Last:12-27-22 FOR UP TO 12 HOURS FOR PAIN Expr:04-03-23 11) NALOXONE HCL 4MG/SPRAY SOLN NASAL SPRAY ACTIVE Issu:06-27-22 Qty: 2 for 30 days Sig: SPRAY 1 DOSE Refills: 1 Last:07-02-22 IN ONE NOSTRIL DIRECTED FOR Expr:06-28-23 UNRESPONSIVENESS THEN CALL 911 - IF NO CHANGE IN 2-3 MINUTES, GIVE SECOND DOSE IN OPPOSITE NOSTRIL 12) OLANZAPINE 2.5MG TAB Qty: 90 for 90 ACTIVE Issu:03-12-23 days Sig: TAKE ONE TABLET BY MOUTH AT Refills: 1 Last:03-12-23 BEDTIME FOR IRRITABILITY AND SLEEP Expr:03-12-24 13) OLODATEROL/TIOTROP 2.5MCG/ACTUAT 60D INH ACTIVE Issu:08-20-22 Qty: 1 for 30 days Sig: INHALE 2 Refills: 9 Last:01-07-23 PUFFS BY INHALATION EVERY DAY FOR COPD Expr:08-21-23 14) OMEPRAZOLE 20MG EC CAP Qty: 360 for 90 ACTIVE Issu:01-07-23 days Sig: TAKE TWO CAPSULES BY MOUTH Refills: 3 Last:01-08-23 TWICE A DAY ON AN EMPTY STOMACH, AT Expr:01-08-24 LEAST 30 MINUTES PRIOR TO A MEAL TO DECREASE STOMACH ACID 15) OMEPRAZOLE 40MG EC CAP Qty: 180 for 90 ACTIVE Issu:01-06-23 days Sig: TAKE ONE CAPSULE BY MOUTH Refills: 1 Last:01-06-23 TWICE A DAY FOR STOMACH ACID Expr:01-07-24 16) PYRIDOXINE HCL 50MG TAB Qty: 100 for 90 ACTIVE Issu:04-02-22 days Sig: TAKE 1/2 TABLET BY MOUTH Refills: 2 Last:12-27-22 EVERY DAY Expr:04-03-23 17) SILDENAFIL CITRATE 100MG TAB Qty: 6 for ACTIVE Issu:01-28-23 30 days Sig: TAKE ONE TABLET BY MOUTH Refills: 4 Last:03-14-23 EVERY DAY NEEDED 1 HOUR BEFORE Expr:01-29-24 ANTICIPATED SEXUAL ACTIVITY. FOR ERECTIONS. 18) THIAMINE 100MG TAB Qty: 100 for 90 days ACTIVE Issu:04-02-22 Sig: TAKE ONE TABLET BY MOUTH EVERY Refills: 0 Last:12-29-22 DAY Expr:04-03-23 19) TRAZODONE HCL 150MG TAB Qty: 90 for 90 ACTIVE (S) Issu:03-12-23 days Sig: TAKE ONE TABLET BY MOUTH AT Refills: 1 Last:04-28-23 BEDTIME FOR SLEEP Expr:03-12-24 Issue Date Status Last Fill Pending Outpatient Medications Refills Expiration 1) ACYCLOVIR 200MG CAP Qty: 60 Sig: TAKE PENDING TWO CAPSULES BY MOUTH THREE TIMES A Refills: 0 DAY 2) FERROUS GLUCONATE 324MG TAB Qty: 100 PENDING Sig: TAKE ONE TABLET BY MOUTH EVERY Refills: 0 OTHER DAY Issue Date Status Last Fill Inactive Outpatient Medications Refills Expiration 1) ACYCLOVIR 200MG CAP Qty: 30 for 5 days Issu:12-18-22 Sig: TAKE TWO CAPSULES BY MOUTH THREE Refills: 0 Last:12-19-22 TIMES A DAY Expr:01-17-23 2) ALBUTEROL 90MCG (CFC-F) 200D ORAL INHL Issu:01-29-22 Qty: 2 for 50 days Sig: INHALE 2 Refills: 1 Last:12-27-22 PUFFS BY INHALATION FOUR TIMES A DAY Expr:01-30-23 NEEDED FOR IMMEDIATE RELIEF OF SHORTNESS OF BREATH *SHAKE WELL* 3) ATENOLOL 25MG TAB Qty: 90 for 90 days DISCONTINUED Issu:04-02-22 Sig: TAKE ONE TABLET BY MOUTH EVERY Refills: 0 Last:08-31-22 DAY FOR ANXIETY FOR ANXIETY Expr:04-03-23 4) CELECOXIB 100MG CAP Qty: 180 for 90 DISCONTINUED Issu:11-25-22 days Sig: TAKE ONE CAPSULE BY MOUTH Refills: 0 Last:11-26-22 TWICE A DAY FOR PAIN Expr:02-23-23 5) DULOXETINE HCL 20MG EC CAP Qty: 120 for DISCONTINUED Issu:10-09-22 30 days Sig: TAKE FOUR CAPSULES BY Refills: 0 Last:11-18-22 MOUTH EVERY DAY FOR ANXIETY, PAIN, AND Expr:10-10-23 DEPRESSION 6) DULOXETINE HCL 30MG EC CAP Qty: 270 for Issu:11-20-22 90 days Sig: TAKE THREE CAPSULES BY Refills: 0 Last:11-20-22 MOUTH EVERY MORNING FOR DEPRESSION Expr:02-18-23 7) DULOXETINE HCL 60MG EC CAP Qty: 30 for DISCONTINUED Issu:08-13-22 30 days Sig: TAKE ONE CAPSULE BY (EDIT) Last:09-03-22 MOUTH EVERY DAY FOR ANXIETY FOR Refills: 0 Expr:08-14-23 ANXIETY, PAIN, AND DEPRESSION 8) DULOXETINE HCL 60MG EC CAP Qty: 30 for DISCONTINUED Issu:06-03-22 30 days Sig: TAKE ONE CAPSULE BY Refills: 0 Last:07-09-22 MOUTH EVERY DAY FOR ANXIETY FOR Expr:06-04-23 ANXIETY, PAIN, AND DEPRESSION 9) DULOXETINE HCL 60MG EC CAP Qty: 30 for DISCONTINUED Issu:03-18-22 30 days Sig: TAKE ONE CAPSULE BY Refills: 0 Last:04-22-22 MOUTH EVERY DAY FOR ANXIETY, PAIN, AND Expr:03-19-23 DEPRESSION 10) FOLIC ACID 1MG TAB Qty: 90 for 90 days DISCONTINUED Issu:03-26-22 Sig: TAKE ONE TABLET BY MOUTH EVERY Refills: 0 Last:12-27-22 DAY Expr:03-27-23 11) OLANZAPINE 2.5MG TAB Qty: 30 for 30 DISCONTINUED Issu:11-20-22 days Sig: TAKE ONE TABLET BY MOUTH AT Refills: 1 Last:01-11-23 BEDTIME FOR IRRITABILITY AND SLEEP Expr:11-21-23 12) SILDENAFIL CITRATE 100MG TAB Qty: 6 for DISCONTINUED Issu:04-02-22 30 days Sig: TAKE ONE TABLET BY MOUTH Refills: 0 Last:11-18-22 EVERY DAY NEEDED 1 HOUR BEFORE Expr:04-03-23 ANTICIPATED SEXUAL ACTIVITY. FOR ERECTIONS. 13) SILDENAFIL CITRATE 100MG TAB Qty: 18 DISCONTINUED Issu:01-02-22 for 90 days Sig: TAKE ONE TABLET BY Refills: 3 Last:01-02-22 MOUTH EVERY DAY NEEDED 1 HOUR Expr:01-03-23 BEFORE ANTICIPATED SEXUAL ACTIVITY 14) TRAZODONE HCL 150MG TAB Qty: 90 for 90 DISCONTINUED Issu:01-06-23 days Sig: TAKE ONE TABLET BY MOUTH AT Refills: 0 Last:02-07-23 BEDTIME FOR SLEEP Expr:04-06-23 15) TRAZODONE HCL 50MG TAB Qty: 270 for 90 DISCONTINUED Issu:11-18-22 days Sig: TAKE THREE TABLETS BY MOUTH Refills: 3 Last:11-19-22 AT BEDTIME Expr:11-19-23 36 Total Medications PHYSICAL EXAM VS: Temp: 98.3 F [36.8 C] (04/01/2023 10:27) BP: 157/69 (04/01/2023 10:46) Pulse:54 (04/01/2023 10:27) Resp: 18 (04/01/2023 10:27) Pain: 0 (04/01/2023 10:27) Weight: WEIGHTS IN LAST 6 MONTHS: 142 (APR 01, 2023@10:27:36) General: Sitting in exam room, no acute distress Pulmonary: Clear to auscultation bilaterally, nonlabored breathing Cardiovascular: Regular rate and rhythm, no extra sounds Extremities: No lower extremity edema Abdomen: Nontender, nondistended Gait: Ataxic gait, uses electric scooter to ambulate, able to transfer from chair to scooter on own slowly. LABS and STUDIES WBC: 6.26 RBC: 3.02 L HGB: 8.9 L HCT: 28.2 L MCV: 93.4 MCH: 29.5 MCHC: 31.6 L RDW: 15.9 H PLT: 189 MPV: 10.3 GLUCOSE: 103 H UREA NITROGEN: 16 CREATININE: 1.4 H SODIUM: 138 POTASSIUM: 3.4 L CHLORIDE: 105 CO2: 26 CALCIUM: 8.5 PROTEIN,TOTAL: 6.3 ALBUMIN: 3.3 L BILIRUBIN,TOTAL: 0.3 MAGNESIUM: 1.8 ANION GAP: 7 ALKALINE PHOSPHATASE(37C): 93 SGOT(37C): 24 SGPT(37C): 10 CREATININE EGFR (CKD-EPI): 54 L B 12: 1040 H FOLATE: 13.6 VITAMIN D,TOTAL: 36 RETICULOCYTES, ABSOLUTE: 0.0416 RETICULOCYTE: 1.39 IMMATURE RETIC FRACTION: 16.6 H RETICULOCYTE HE: 25.4 L FERRITIN: 16.8 L TIBC: 381 IRON: 35 L IRON SATURATION: 9 L TRANSFERRIN: 305 /marli/ KAREN DOVE MD PHYSICIAN, [facility] Signed: 04/01/2023 12:34 06/19/2023 ADDENDUM STATUS: COMPLETED Millicent, received report from patient's [facility] provider he may be developing a pressure sore on his left buttocks. They are requesting authorization for weekly visits to monitor pressure area. Can you please help athorize? Thanks! fax [phone] phone [phone] /kelly DOVE MD PHYSICIAN, [facility] Signed: 06/19/2023 08:58 Receipt Acknowledged By: 06/19/2023 10:28 /marli/ JOSE BULLOCK RN REGISTERED NURSE 06/20/2023 ADDENDUM STATUS: COMPLETED CITC entered but declined because the patient doesn't meet drivetime critera. [facility] /kelly DOVE MD PHYSICIAN, [facility] Signed: 06/20/2023 08:36 JOSE BULLOCK [facility] Jun 19, 2023 08:57 AM ADDENDUM: LOCAL TITLE: Addendum STANDARD TITLE: ADDENDUM DATE OF NOTE: JUN 19, 2023@08:57:39 ENTRY DATE: JUN 19, 2023@08:57:39 AUTHOR: KAREN DOVE EXP COSIGNER: URGENCY: STATUS: COMPLETED Millicent, received report from patient's [facility] provider he may be developing a pressure sore on his left buttocks. They are requesting authorization for weekly visits to monitor pressure area. Can you please help athorize? Thanks! fax [phone] phone [phone] /kelly DOVE MD PHYSICIAN, [facility] Signed: 06/19/2023 08:58 Receipt Acknowledged By: 06/19/2023 10:28 /kelly BULLOCK RN REGISTERED NURSE --- Original Document --- 04/01/23 MEDICINE CLINIC NOTE: MEDICINE CLINIC NOTE ASSESSMENT AND PLAN #MILES and melena: GI, stop EtOH, stop celecoxib, hold alcohol, recheck labs in 1 month #CKD IIIA: slowly worsening over past year, low suspicion for retention as he is s/p prostatectomy, will have him hold celecoxib and repeat BMP in 1 month #HTN: Monitor at home w/ PACT RN f/u in 1 month #Hypovitaminosis D: vitamin D, recheck shows resolution #Mildly elevated AST: suspect related to EtOH use, suggested cessation, recheck shows resolution #B12 deficiency: remains on B12 supplement, recheck shows improvement #Alcohol use disorder: Advised cessation previously and again today. Remains on folate, pyridoxine and thiamine. #Hypokalemia: suspect 2/2 EtOH, hold alcohol and recheck in 1 month CHRONIC #Osteopenia per 10/2022 DEXA #PCL avulsion Fx, left, 06/2022: non-operative management, [facility] w[facility]. Will refer to PT for Rollator. #Falls, impaired mobility Likely driven by of his severe lower extremity neuropathy. He has been provided assistive devices in the past as well as OT home evaluation. Generally the falls occur when he is not using these. Prior electric mobility consult declined. #Macrocytic anemia Suspect this is related to alcohol use. Broad w/u previously normal, including SPEP, kappa, lambda. Smear nonspecific. 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 #EMG-proven bilateral lower extremity neuropathy W/u includes normal SPEP, B12, A1c. Possibly 2/2 EtoH; continues to drink 4 beers per day. Minimal improvement with gabapentin and pregabalin; previously declined trying these again. -on duloxetine -electric wheelchair #Chronic low back pain Some spondylosis on imaging, but per pain clinic eval 06/2021, degree of pain more than they would expect on imaging (MRI 02/2021). Suspect nociplastic component. Previously offered PT, acupuncture, etc by pain clinic. NSAID not ideal given gastritis, EtOH use. Also has lidocaine patch. #History of prostate cancer status post radical retroprostatectomy 2012 complicated by incontinence; repeat PSA OK 08/2022. #Calf pain w/ ambulation: Suspect PVD, previously ordered ABIs but not pursued by patient #Gastritis (suspected NSAID-induced 2013), history of H. pylori: On omeprazole 40 mg daily #COPD: PRN albuterol, olodaterol/tiotropium #Dysphagia 2/ esophagogastric junction outlet obstruction: Follows with GI and is undergone esophageal manometry suggestive of EGJOO. He has received Botox injections at the GE junction. Status post speech pathology evaluation in September 2019 only notable for mild oropharyngeal dysphagia. #HSV: Acyclovir #Insomnia and PTSD: Olanzapine 2.5 mg nightly, trazodone 150 mg nightly, follows w/ [facility] #Anxiety and depression: atenolol 25 mg daily, duloxetine 90 mg daily [facility] -CRC: last colonoscopy 06/21/2013 w/ repeat due June 2023 for screening purposes, will obtain FIT test if GI does not pursue colonoscopy -tobacco: less then 1 ppd, >40 years (started around 26), repeat lung cancer screening due 08/2023 -PSA: as above RTC: 6 months Karen Dove MD General Internal Medicine [facility] A total of 42 minutes was spent on this visit reviewing previous notes, counseling the patient, ordering or interpreting tests, adjusting meds, and documenting the findings in the note. CC: Annual HPI Patient presents for his annual. He suspects been doing altogether fairly well recently. His main concerns today are to get some orders from the [facility] for a lift chair as well as some new shoes for his peripheral neuropathy. His hemoglobin has been dropping, and review of systems is notable for intermittent black stools for the past month or so. He does not take iron on a regular basis. He does take some Tylenol and celecoxib but no ibuprofen. The black stools may happen twice per week on average. He has some nausea in the morning but this has been going on for years, no vomiting. No blood in his urine. The most recent episode of melena was yesterday, he has not had any today as his bowel movement was normal. He says he is otherwise feeling well and does not feel short of breath or dizzy unless he stands up quickly, which is not new for him. His blood pressure is elevated and he is not sure how long that has been a problem. He is going to follow-up with the nurse in a month to see how its going. He does continue to drink alcohol, probably 2-4 beers per day. He says he goes through 12 pack about once per week. He does not think he would have any trouble stopping quitting from a withdrawal standpoint. UPDATED PROBLEM LIST Active problems - Computerized Problem List is the source for the followin. Heavy tobacco smoker (SNOMED CT 338213971667139) 2. Depression (SNOMED CT 70361401) 3. Chronic post-traumatic stress disorder following combat (SNOMED CT 4. Idiopathic chronic neuropathy (SNOMED CT 555433578) - EMG-proven 5. Lumbar spondylosis 6. Prostate Cancer ([facility] [id number]) - status post radical retroprostatectomy 2012 complicated by incontinence 7. 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 Osteopenia - per 10/2022 DEXA 9. Recurrent falls - Likely driven by of his severe lower extremity neuropathy 10. Alcohol Abuse ([facility] [id number]) 11. Gastritis - suspected NSAID-induced 2013 +/- EtOH: remains on PPI 12. COPD - Chronic Obstructive Pulmonary Disease ([facility] [id number]) 13. History of Polyp of Colon ([facility] [id number]) - last colonoscopy 06/21/2013 notable for hyperplastic polyp w/ repeat due June 2023 for screening purposes 14. 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 Insomnia ([facility] [id number]) 16. Vitamin D deficiency 17. Vitamin B12 deficiency (non anemic) MEDICATION RECONCILATION Education Evaluations *Was medication education provided for NEW medications or CHANGES to medications? (including medication name, dose, route, reason for use, and potential side effects). No new medications or medication changes during this encounter. TERATOGENIC MED & CONTRACEPTION REVIEW (Optional)... MEDICATION [...] Remote Allergy/ADR Data available for this patient [facility] BEE VENOM [facility] BUTORPHANOL Active and Recently Outpatient Medications (including Supplies): Issue Date Status Last Fill Active Outpatient Medications Refills Expiration 1) ATENOLOL 25MG TAB Qty: 90 for 90 days ACTIVE Issu:11-20-22 Sig: TAKE ONE TABLET BY MOUTH EVERY Refills: 0 Last:02-17-23 DAY FOR ANXIETY FOR ANXIETY Expr:11-21-23 2) BRIEF,TRANQUILITY LESLIE OVERNITE #2114 ACTIVE Issu:01-07-23 Qty: 80 for 30 days Sig: USE BRIEF Refills: 10 Last:03-17-23 DIRECTED Expr:01-08-24 3) CARBOXYMETHYLCELLULOSE NA 0.5% OPH SOLN ACTIVE Issu:08-20-22 Qty: 15 for 30 days Sig: INSTILL 1 Refills: 2 Last:12-27-22 DROP IN BOTH EYES FOUR TIMES A DAY Expr:08-21-23 NEEDED FOR DRY EYES 4) CELECOXIB 100MG CAP Qty: 180 for 90 ACTIVE Issu:03-17-23 days Sig: TAKE ONE CAPSULE BY MOUTH Refills: 0 Last:03-18-23 TWICE A DAY FOR PAIN Expr:06-15-23 5) CHOLECALCIF 25MCG (D3-1,000UNIT) TAB ACTIVE Issu:08-20-22 Qty: 100 for 90 days Sig: TAKE ONE Refills: 2 Last:12-27-22 TABLET BY MOUTH EVERY DAY FOR VITAMIN Expr:08-21-23 D 6) CYANOCOBALAMIN 1000MCG TAB Qty: 100 for ACTIVE Issu:08-22-22 90 days Sig: TAKE ONE TABLET BY MOUTH Refills: 1 Last:02-14-23 EVERY DAY FOR B12 Expr:08-23-23 7) DULOXETINE HCL 30MG EC CAP Qty: 270 for ACTIVE Issu:03-15-23 90 days Sig: TAKE THREE CAPSULES BY Refills: 1 Last:03-18-23 MOUTH EVERY MORNING FOR DEPRESSION Expr:03-15-24 8) EPINEPHRINE (EQV-EPI-PEN) 0.3MG/0.3ML ACTIVE Issu:08-29-22 Qty: 2 for 30 days Sig: INJECT 1 PEN Refills: 11 Last:09-02-22 DIRECTED ONCE NEEDED FOR Expr:08-30-23 ALLERGIC REACTION 9) FOLIC ACID 1MG TAB Qty: 90 for 90 days ACTIVE Issu:03-17-23 Sig: TAKE ONE TABLET BY MOUTH EVERY Refills: 3 Last:03-18-23 DAY Expr:03-17-24 10) LIDOCAINE 5% PATCH Qty: 30 for 30 days ACTIVE Issu:04-02-22 Sig: APPLY 1 PATCH TOPICALLY EVERY DAY Refills: 10 Last:12-27-22 FOR UP TO 12 HOURS FOR PAIN Expr:04-03-23 11) NALOXONE HCL 4MG/SPRAY SOLN NASAL SPRAY ACTIVE Issu:06-27-22 Qty: 2 for 30 days Sig: SPRAY 1 DOSE Refills: 1 Last:07-02-22 IN ONE NOSTRIL DIRECTED FOR Expr:06-28-23 UNRESPONSIVENESS THEN CALL 911 - IF NO CHANGE IN 2-3 MINUTES, GIVE SECOND DOSE IN OPPOSITE NOSTRIL 12) OLANZAPINE 2.5MG TAB Qty: 90 for 90 ACTIVE Issu:03-12-23 days Sig: TAKE ONE TABLET BY MOUTH AT Refills: 1 Last:03-12-23 BEDTIME FOR IRRITABILITY AND SLEEP Expr:03-12-24 13) OLODATEROL/TIOTROP 2.5MCG/ACTUAT 60D INH ACTIVE Issu:08-20-22 Qty: 1 for 30 days Sig: INHALE 2 Refills: 9 Last:01-07-23 PUFFS BY INHALATION EVERY DAY FOR COPD Expr:08-21-23 14) OMEPRAZOLE 20MG EC CAP Qty: 360 for 90 ACTIVE Issu:01-07-23 days Sig: TAKE TWO CAPSULES BY MOUTH Refills: 3 Last:01-08-23 TWICE A DAY ON AN EMPTY STOMACH, AT Expr:01-08-24 LEAST 30 MINUTES PRIOR TO A MEAL TO DECREASE STOMACH ACID 15) OMEPRAZOLE 40MG EC CAP Qty: 180 for 90 ACTIVE Issu:01-06-23 days Sig: TAKE ONE CAPSULE BY MOUTH Refills: 1 Last:01-06-23 TWICE A DAY FOR STOMACH ACID Expr:01-07-24 16) PYRIDOXINE HCL 50MG TAB Qty: 100 for 90 ACTIVE Issu:04-02-22 days Sig: TAKE 1/2 TABLET BY MOUTH Refills: 2 Last:12-27-22 EVERY DAY Expr:04-03-23 17) SILDENAFIL CITRATE 100MG TAB Qty: 6 for ACTIVE Issu:01-28-23 30 days Sig: TAKE ONE TABLET BY MOUTH Refills: 4 Last:03-14-23 EVERY DAY NEEDED 1 HOUR BEFORE Expr:01-29-24 ANTICIPATED SEXUAL ACTIVITY. FOR ERECTIONS. 18) THIAMINE 100MG TAB Qty: 100 for 90 days ACTIVE Issu:04-02-22 Sig: TAKE ONE TABLET BY MOUTH EVERY Refills: 0 Last:12-29-22 DAY Expr:04-03-23 19) TRAZODONE HCL 150MG TAB Qty: 90 for 90 ACTIVE (S) Issu:03-12-23 days Sig: TAKE ONE TABLET BY MOUTH AT Refills: 1 Last:04-28-23 BEDTIME FOR SLEEP Expr:03-12-24 Issue Date Status Last Fill Pending Outpatient Medications Refills Expiration 1) ACYCLOVIR 200MG CAP Qty: 60 Sig: TAKE PENDING TWO CAPSULES BY MOUTH THREE TIMES A Refills: 0 DAY 2) FERROUS GLUCONATE 324MG TAB Qty: 100 PENDING Sig: TAKE ONE TABLET BY MOUTH EVERY Refills: 0 OTHER DAY Issue Date Status Last Fill Inactive Outpatient Medications Refills Expiration 1) ACYCLOVIR 200MG CAP Qty: 30 for 5 days Issu:12-18-22 Sig: TAKE TWO CAPSULES BY MOUTH THREE Refills: 0 Last:12-19-22 TIMES A DAY Expr:01-17-23 2) ALBUTEROL 90MCG (CFC-F) 200D ORAL INHL Issu:01-29-22 Qty: 2 for 50 days Sig: INHALE 2 Refills: 1 Last:12-27-22 PUFFS BY INHALATION FOUR TIMES A DAY Expr:01-30-23 NEEDED FOR IMMEDIATE RELIEF OF SHORTNESS OF BREATH *SHAKE WELL* 3) ATENOLOL 25MG TAB Qty: 90 for 90 days DISCONTINUED Issu:04-02-22 Sig: TAKE ONE TABLET BY MOUTH EVERY Refills: 0 Last:08-31-22 DAY FOR ANXIETY FOR ANXIETY Expr:04-03-23 4) CELECOXIB 100MG CAP Qty: 180 for 90 DISCONTINUED Issu:11-25-22 days Sig: TAKE ONE CAPSULE BY MOUTH Refills: 0 Last:11-26-22 TWICE A DAY FOR PAIN Expr:02-23-23 5) DULOXETINE HCL 20MG EC CAP Qty: 120 for DISCONTINUED Issu:10-09-22 30 days Sig: TAKE FOUR CAPSULES BY Refills: 0 Last:11-18-22 MOUTH EVERY DAY FOR ANXIETY, PAIN, AND Expr:10-10-23 DEPRESSION 6) DULOXETINE HCL 30MG EC CAP Qty: 270 for Issu:11-20-22 90 days Sig: TAKE THREE CAPSULES BY Refills: 0 Last:11-20-22 MOUTH EVERY MORNING FOR DEPRESSION Expr:02-18-23 7) DULOXETINE HCL 60MG EC CAP Qty: 30 for DISCONTINUED Issu:08-13-22 30 days Sig: TAKE ONE CAPSULE BY (EDIT) Last:09-03-22 MOUTH EVERY DAY FOR ANXIETY FOR Refills: 0 Expr:08-14-23 ANXIETY, PAIN, AND DEPRESSION 8) DULOXETINE HCL 60MG EC CAP Qty: 30 for DISCONTINUED Issu:06-03-22 30 days Sig: TAKE ONE CAPSULE BY Refills: 0 Last:07-09-22 MOUTH EVERY DAY FOR ANXIETY FOR Expr:06-04-23 ANXIETY, PAIN, AND DEPRESSION 9) DULOXETINE HCL 60MG EC CAP Qty: 30 for DISCONTINUED Issu:03-18-22 30 days Sig: TAKE ONE CAPSULE BY Refills: 0 Last:04-22-22 MOUTH EVERY DAY FOR ANXIETY, PAIN, AND Expr:03-19-23 DEPRESSION 10) FOLIC ACID 1MG TAB Qty: 90 for 90 days DISCONTINUED Issu:03-26-22 Sig: TAKE ONE TABLET BY MOUTH EVERY Refills: 0 Last:12-27-22 DAY Expr:03-27-23 11) OLANZAPINE 2.5MG TAB Qty: 30 for 30 DISCONTINUED Issu:11-20-22 days Sig: TAKE ONE TABLET BY MOUTH AT Refills: 1 Last:01-11-23 BEDTIME FOR IRRITABILITY AND SLEEP Expr:11-21-23 12) SILDENAFIL CITRATE 100MG TAB Qty: 6 for DISCONTINUED Issu:04-02-22 30 days Sig: TAKE ONE TABLET BY MOUTH Refills: 0 Last:11-18-22 EVERY DAY NEEDED 1 HOUR BEFORE Expr:04-03-23 ANTICIPATED SEXUAL ACTIVITY. FOR ERECTIONS. 13) SILDENAFIL CITRATE 100MG TAB Qty: 18 DISCONTINUED Issu:01-02-22 for 90 days Sig: TAKE ONE TABLET BY Refills: 3 Last:01-02-22 MOUTH EVERY DAY NEEDED 1 HOUR Expr:01-03-23 BEFORE ANTICIPATED SEXUAL ACTIVITY 14) TRAZODONE HCL 150MG TAB Qty: 90 for 90 DISCONTINUED Issu:01-06-23 days Sig: TAKE ONE TABLET BY MOUTH AT Refills: 0 Last:02-07-23 BEDTIME FOR SLEEP Expr:04-06-23 15) TRAZODONE HCL 50MG TAB Qty: 270 for 90 DISCONTINUED Issu:11-18-22 days Sig: TAKE THREE TABLETS BY MOUTH Refills: 3 Last:11-19-22 AT BEDTIME Expr:11-19-23 36 Total Medications PHYSICAL EXAM VS: Temp: 98.3 F [36.8 C] (04/01/2023 10:27) BP: 157/69 (04/01/2023 10:46) Pulse:54 (04/01/2023 10:27) Resp: 18 (04/01/2023 10:27) Pain: 0 (04/01/2023 10:27) Weight: WEIGHTS IN LAST 6 MONTHS: 142 (APR 01, 2023@10:27:36) General: Sitting in exam room, no acute distress Pulmonary: Clear to auscultation bilaterally, nonlabored breathing Cardiovascular: Regular rate and rhythm, no extra sounds Extremities: No lower extremity edema Abdomen: Nontender, nondistended Gait: Ataxic gait, uses electric scooter to ambulate, able to transfer from chair to scooter on own slowly. LABS and STUDIES WBC: 6.26 RBC: 3.02 L HGB: 8.9 L HCT: 28.2 L MCV: 93.4 MCH: 29.5 MCHC: 31.6 L RDW: 15.9 H PLT: 189 MPV: 10.3 GLUCOSE: 103 H UREA NITROGEN: 16 CREATININE: 1.4 H SODIUM: 138 POTASSIUM: 3.4 L CHLORIDE: 105 CO2: 26 CALCIUM: 8.5 PROTEIN,TOTAL: 6.3 ALBUMIN: 3.3 L BILIRUBIN,TOTAL: 0.3 MAGNESIUM: 1.8 ANION GAP: 7 ALKALINE PHOSPHATASE(37C): 93 SGOT(37C): 24 SGPT(37C): 10 CREATININE EGFR (CKD-EPI): 54 L B 12: 1040 H FOLATE: 13.6 VITAMIN D,TOTAL: 36 RETICULOCYTES, ABSOLUTE: 0.0416 RETICULOCYTE: 1.39 IMMATURE RETIC FRACTION: 16.6 H RETICULOCYTE HE: 25.4 L FERRITIN: 16.8 L TIBC: 381 IRON: 35 L IRON SATURATION: 9 L TRANSFERRIN: 305 /es/ KAREN DOVE MD PHYSICIAN, [facility] Signed: 04/01/2023 12:34 06/19/2023 ADDENDUM STATUS: COMPLETED Called and spoke with Patricia Brooks home care aide for Vet [phone]. She reports that she is visiting patient today. She states that she had faxed authorization to the home care department requesting weekly skilled nurse visits to monitor a developing pressure area on Vet's buttock's weekly but it was denied. Home Care: [employer] will co sign home care department to make this request for weekly skilled nurse visits to monitor a developing pressure area on Vet's buttocks. [employer] offered to order mepilex bordered foam. She wanted to hold on this until seeing patient today. Provided a direct phone number to call back. Home care-if request is authorized, agency is requesting faxed authorization orders. Dr. Dove: Patricia asked newswriter if Vet ever had his labs drawn pre-op endoscopy. Shared that he did not. Shared that GI did Vet's H & P. Patricia is concerned about Vet's continued weakness and pain and is asking if it could be considered to have Vet's lab drawn in the community close to home. Vet may not meet drive time but it is a hardship to get Vet out of the house and to appointments as he does not drive and has to arrange transportation. Patricia states that he lives closest to [facility]. She would be able to assist Vet with arranging a ride to a lab appointment if approved. [employer] also offered to move up Vet's appt with Dr. Dove which is due in August. This will be considered but Patricia still feels obtaining current lab work now would be helpful. Prior hgb 8.18 Mar 2023. /es/ JOSE BULLOCK RN REGISTERED NURSE Signed: 06/19/2023 10:26 Receipt Acknowledged By: * AWAITING SIGNATURE * KAREN DOVE * AWAITING SIGNATURE * KAYLA XIE LEO B [facility] Apr 01, 2023 11:16 AM ADMINISTRATIVE NOTE: LOCAL TITLE: AFTER VISIT SUMMARY NOTE STANDARD TITLE: ADMINISTRATIVE NOTE DICT DATE: APR 01, 2023@11:16:14 ENTRY DATE: APR 01, 2023@11:16:14 DICTATED BY: KAREN DOVE EXP COSIGNER: URGENCY: STATUS: COMPLETED The patient was provided with a copy of an after-visit summary at the conclusion of the visit. A copy of the after-visit summary provided to the patient is available in [employer]. SCANNED DOCUMENT SIGNATURE NOT REQUIRED Electronically Filed: 04/01/2023 by: KAREN DOVE MD PHYSICIAN, [facility] KAREN DOVE [facility] Apr 01, 2023 10:30 AM INTERNAL MEDICINE OUTPATIENT NOTE: LOCAL TITLE: MEDICINE CLINIC NURSING NOTE STANDARD TITLE: INTERNAL MEDICINE OUTPATIENT NOTE DATE OF NOTE: APR 01, 2023@10:30 ENTRY DATE: APR 01, 2023@10:30:18 AUTHOR: LM HARP EXP COSIGNER: URGENCY: STATUS: COMPLETED TYPE OF VISIT: Appointment Check In Type of appointment: In-person appointment REASON FOR VISIT: annual ALLERGIES: BUTORPHANOL (Jul 03, 2009) BEE VENOM (July 13, 2019) VITAL SIGNS: Blood Pressure: 161/78 (04/01/2023 10:27) Pulse: 54 (04/01/2023 10:27) Respiration: 18 (04/01/2023 10:27) Temperature: 98.3 F [36.8 C] (04/01/2023 10:27) Weight: 142 lb [64.41 kg] (04/01/2023 10:27) Height: 71 in [180.3 cm] (04/01/2023 10:27) BMI: 19.8 O2 Sat: 100% (04/01/2023 10:27) Pain: 0 (04/01/2023 10:27) PAIN SCREEN: Patient is not having significant pain that they wish to discuss with their provider today. MEDICATION Over the Counter/Herbal Medications: The patient denies taking any outside medications or herbals. Homelessness/Food Insecurity Screen: [facility] reports the following: Currently, you don't have enough money to get food OR you are worried that your food will run out before you get money to buy more. No Food Insecurity Resources COVID-19 Immunization: Refused Moderna Monovalent COVID-19 vaccine Immunization: COVID-19 (MODERNA), MRNA, LNP-S, PF, 50 MCG/0.5 ML (AGES 12+ YEARS) Refusal Reason: PATIENT DECISION Patient refuses all immunization(s) in the COVID-19 group Date Documented: 04/01/23 10:31 Influenza Immunization: The patient declines to receive the recommended dose of seasonal influenza vaccine. Immunization: INFLUENZA, UNSPECIFIED FORMULATION Refusal Reason: PATIENT DECISION Patient refuses all immunization(s) in the FLU group Date Documented: 04/01/23 10:31 /marli/ LM HARP [facility] Signed: 04/01/2023 10:32 LM HARP [facility] Apr 01, 2023 10:15 AM INTERNAL MEDICINE NOTE: LOCAL TITLE: MEDICINE CLINIC NOTE STANDARD TITLE: INTERNAL MEDICINE NOTE DATE OF NOTE: APR 01, 2023@10:15 ENTRY DATE: APR 01, 2023@12:23:55 AUTHOR: KAREN DOVE EXP COSIGNER: URGENCY: STATUS: COMPLETED MEDICINE CLINIC NOTE Has ADDENDA MEDICINE CLINIC NOTE ASSESSMENT AND PLAN #MILES and melena: GI, stop EtOH, stop celecoxib, hold alcohol, recheck labs in 1 month #CKD IIIA: slowly worsening over past year, low suspicion for retention as he is s/p prostatectomy, will have him hold celecoxib and repeat BMP in 1 month #HTN: Monitor at home w/ PACT RN f/u in 1 month #Hypovitaminosis D: vitamin D, recheck shows resolution #Mildly elevated AST: suspect related to EtOH use, suggested cessation, recheck shows resolution #B12 deficiency: remains on B12 supplement, recheck shows improvement #Alcohol use disorder: Advised cessation previously and again today. Remains on folate, pyridoxine and thiamine. #Hypokalemia: suspect 2/2 EtOH, hold alcohol and recheck in 1 month CHRONIC #Osteopenia per 10/2022 DEXA #PCL avulsion Fx, left, 06/2022: non-operative management[facility]. Will refer to PT for Rollator. #Falls, impaired mobility Likely driven by of his severe lower extremity neuropathy. He has been provided assistive devices in the past as well as OT home evaluation. Generally the falls occur when he is not using these. Prior electric mobility consult declined. #Macrocytic anemia Suspect this is related to alcohol use. Broad w/u previously normal, including SPEP, kappa, lambda. Smear nonspecific. 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 #EMG-proven bilateral lower extremity neuropathy W/u includes normal SPEP, B12, A1c. Possibly 2/2 EtoH; continues to drink 4 beers per day. Minimal improvement with gabapentin and pregabalin; previously declined trying these again. -on duloxetine -electric wheelchair #Chronic low back pain Some spondylosis on imaging, but per pain clinic eval 06/2021, degree of pain more than they would expect on imaging (MRI 02/2021). Suspect nociplastic component. Previously offered PT, acupuncture, etc by pain clinic. NSAID not ideal given gastritis, EtOH use. Also has lidocaine patch. #History of prostate cancer status post radical retroprostatectomy 2012 complicated by incontinence; repeat PSA OK 08/2022. #Calf pain w/ ambulation: Suspect PVD, previously ordered ABIs but not pursued by patient #Gastritis (suspected NSAID-induced 2013), history of H. 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 He has received Botox injections at the GE junction. Status post speech pathology evaluation in September 2019 only notable for mild oropharyngeal dysphagia. #HSV: Acyclovir #Insomnia and PTSD: Olanzapine 2.5 mg nightly, trazodone 150 mg nightly, follows w/ MH #Anxiety and depression: atenolol 25 mg daily, duloxetine 90 mg daily [facility] -CRC: last colonoscopy 06/21/2013 w/ repeat due June 2023 for screening purposes, will obtain FIT test if GI does not pursue colonoscopy -tobacco: less then 1 ppd, >40 years (started around 26), repeat lung cancer screening due 08/2023 -PSA: as above RTC: 6 months Karen Dove MD General Internal Medicine [facility] A total of 42 minutes was spent on this visit reviewing previous notes, counseling the patient, ordering or interpreting tests, adjusting meds, and documenting the findings in the note. CC: Annual HPI Patient presents for his annual. He suspects been doing altogether fairly well recently. His main concerns today are to get some orders from the [place] for a lift chair as well as some new shoes for his peripheral neuropathy. His hemoglobin has been dropping, and review of systems is notable for intermittent black stools for the past month or so. He does not take iron on a regular basis. He does take some Tylenol and celecoxib but no ibuprofen. The black stools may happen twice per week on average. He has some nausea in the morning but this has been going on for years, no vomiting. No blood in his urine. The most recent episode of melena was yesterday, he has not had any today as his bowel movement was normal. He says he is otherwise feeling well and does not feel short of breath or dizzy unless he stands up quickly, which is not new for him. His blood pressure is elevated and he is not sure how long that has been a problem. He is going to follow-up with the nurse in a month to see how its going. He does continue to drink alcohol, probably 2-4 beers per day. He says he goes through 12 pack about once per week. He does not think he would have any trouble stopping quitting from a withdrawal standpoint. UPDATED PROBLEM LIST Active problems - Computerized Problem List is the source for the followin. Heavy tobacco smoker (SNOMED CT [id number]) 2. Depression (SNOMED CT 16696428) 3. Chronic post-traumatic stress disorder following combat (SNOMED CT 4. Idiopathic chronic neuropathy (SNOMED CT 179506458) - EMG-proven 5. Lumbar spondylosis 6. Prostate Cancer (SCT 842852303) - status post radical retroprostatectomy 2012 complicated by incontinence 7. 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 Osteopenia - per 10/2022 DEXA 9. Recurrent falls - Likely driven by of his severe lower extremity neuropathy 10. Alcohol Abuse ([facility] [id number]) 11. Gastritis - suspected NSAID-induced 2013 +/- EtOH: remains on PPI 12. COPD - Chronic Obstructive Pulmonary Disease ([facility] [id number]) 13. History of Polyp of Colon ([facility] [id number]) - last colonoscopy 06/21/2013 notable for hyperplastic polyp w/ repeat due June 2023 for screening purposes 14. Dysphagia - 2/ esophagogastric junction outlet obstruction - esophageal manometry suggestive of EGJOO - s/p Botox injections at the GE junction 15. Insomnia ([facility] [id number]) 16. Vitamin D deficiency 17. Vitamin B12 deficiency (non anemic) MEDICATION RECONCILATION Education Evaluations *Was medication education provided for NEW medications or CHANGES to medications? (including medication name, dose, route, reason for use, and potential side effects). No new medications or medication changes during this encounter. TERATOGENIC MED & CONTRACEPTION REVIEW (Optional)... MEDICATION [...] Remote Allergy/ADR Data available for this patient [facility] BUTORPHANOL Active and Recently Outpatient Medications (including Supplies): Issue Date Status Last Fill Active Outpatient Medications Refills Expiration 1) ATENOLOL 25MG TAB Qty: 90 for 90 days ACTIVE Issu:11-20-22 Sig: TAKE ONE TABLET BY MOUTH EVERY Refills: 0 Last:02-17-23 DAY FOR ANXIETY FOR ANXIETY Expr:11-21-23 2) BRIEF,TRANQUILITY LESLIE OVERNITE #[id number] ACTIVE Issu:01-07-23 Qty: 80 for 30 days Sig: USE BRIEF Refills: 10 Last:03-17-23 DIRECTED Expr:01-08-24 3) CARBOXYMETHYLCELLULOSE NA 0.5% OPH SOLN ACTIVE Issu:08-20-22 Qty: 15 for 30 days Sig: INSTILL 1 Refills: 2 Last:12-27-22 DROP IN BOTH EYES FOUR TIMES A DAY Expr:08-21-23 NEEDED FOR DRY EYES 4) CELECOXIB 100MG CAP Qty: 180 for 90 ACTIVE Issu:03-17-23 days Sig: TAKE ONE CAPSULE BY MOUTH Refills: 0 Last:03-18-23 TWICE A DAY FOR PAIN Expr:06-15-23 5) CHOLECALCIF 25MCG (D3-1,000UNIT) TAB ACTIVE Issu:08-20-22 Qty: 100 for 90 days Sig: TAKE ONE Refills: 2 Last:12-27-22 TABLET BY MOUTH EVERY DAY FOR VITAMIN Expr:08-21-23 D 6) CYANOCOBALAMIN 1000MCG TAB Qty: 100 for ACTIVE Issu:08-22-22 90 days Sig: TAKE ONE TABLET BY MOUTH Refills: 1 Last:02-14-23 EVERY DAY FOR B12 Expr:08-23-23 7) DULOXETINE HCL 30MG EC CAP Qty: 270 for ACTIVE Issu:03-15-23 90 days Sig: TAKE THREE CAPSULES BY Refills: 1 Last:03-18-23 MOUTH EVERY MORNING FOR DEPRESSION Expr:03-15-24 8) EPINEPHRINE (EQV-EPI-PEN) 0.3MG/0.3ML ACTIVE Issu:08-29-22 Qty: 2 for 30 days Sig: INJECT 1 PEN Refills: 11 Last:09-02-22 DIRECTED ONCE NEEDED FOR Expr:08-30-23 ALLERGIC REACTION 9) FOLIC ACID 1MG TAB Qty: 90 for 90 days ACTIVE Issu:03-17-23 Sig: TAKE ONE TABLET BY MOUTH EVERY Refills: 3 Last:03-18-23 DAY Expr:03-17-24 10) LIDOCAINE 5% PATCH Qty: 30 for 30 days ACTIVE Issu:04-02-22 Sig: APPLY 1 PATCH TOPICALLY EVERY DAY Refills: 10 Last:12-27-22 FOR UP TO 12 HOURS FOR PAIN Expr:04-03-23 11) NALOXONE HCL 4MG/SPRAY SOLN NASAL SPRAY ACTIVE Issu:06-27-22 Qty: 2 for 30 days Sig: SPRAY 1 DOSE Refills: 1 Last:07-02-22 IN ONE NOSTRIL DIRECTED FOR Expr:06-28-23 UNRESPONSIVENESS THEN CALL 911 - IF NO CHANGE IN 2-3 MINUTES, GIVE SECOND DOSE IN OPPOSITE NOSTRIL 12) OLANZAPINE 2.5MG TAB Qty: 90 for 90 ACTIVE Issu:03-12-23 days Sig: TAKE ONE TABLET BY MOUTH AT Refills: 1 Last:03-12-23 BEDTIME FOR IRRITABILITY AND SLEEP Expr:03-12-24 13) OLODATEROL/TIOTROP 2.5MCG/ACTUAT 60D INH ACTIVE Issu:08-20-22 Qty: 1 for 30 days Sig: INHALE 2 Refills: 9 Last:01-07-23 PUFFS BY INHALATION EVERY DAY FOR COPD Expr:08-21-23 14) OMEPRAZOLE 20MG EC CAP Qty: 360 for 90 ACTIVE Issu:01-07-23 days Sig: TAKE TWO CAPSULES BY MOUTH Refills: 3 Last:01-08-23 TWICE A DAY ON AN EMPTY STOMACH, AT Expr:01-08-24 LEAST 30 MINUTES PRIOR TO A MEAL TO DECREASE STOMACH ACID 15) OMEPRAZOLE 40MG EC CAP Qty: 180 for 90 ACTIVE Issu:01-06-23 days Sig: TAKE ONE CAPSULE BY MOUTH Refills: 1 Last:01-06-23 TWICE A DAY FOR STOMACH ACID Expr:01-07-24 16) PYRIDOXINE HCL 50MG TAB Qty: 100 for 90 ACTIVE Issu:04-02-22 days Sig: TAKE 1/2 TABLET BY MOUTH Refills: 2 Last:12-27-22 EVERY DAY Expr:04-03-23 17) SILDENAFIL CITRATE 100MG TAB Qty: 6 for ACTIVE Issu:01-28-23 30 days Sig: TAKE ONE TABLET BY MOUTH Refills: 4 Last:03-14-23 EVERY DAY NEEDED 1 HOUR BEFORE Expr:01-29-24 ANTICIPATED SEXUAL ACTIVITY. FOR ERECTIONS. 18) THIAMINE 100MG TAB Qty: 100 for 90 days ACTIVE Issu:04-02-22 Sig: TAKE ONE TABLET BY MOUTH EVERY Refills: 0 Last:12-29-22 DAY Expr:04-03-23 19) TRAZODONE HCL 150MG TAB Qty: 90 for 90 ACTIVE (S) Issu:03-12-23 days Sig: TAKE ONE TABLET BY MOUTH AT Refills: 1 Last:04-28-23 BEDTIME FOR SLEEP Expr:03-12-24 Issue Date Status Last Fill Pending Outpatient Medications Refills Expiration 1) ACYCLOVIR 200MG CAP Qty: 60 Sig: TAKE PENDING TWO CAPSULES BY MOUTH THREE TIMES A Refills: 0 DAY 2) FERROUS GLUCONATE 324MG TAB Qty: 100 PENDING Sig: TAKE ONE TABLET BY MOUTH EVERY Refills: 0 OTHER DAY Issue Date Status Last Fill Inactive Outpatient Medications Refills Expiration 1) ACYCLOVIR 200MG CAP Qty: 30 for 5 days Issu:12-18-22 Sig: TAKE TWO CAPSULES BY MOUTH THREE Refills: 0 Last:12-19-22 TIMES A DAY Expr:01-17-23 2) ALBUTEROL 90MCG (CFC-F) 200D ORAL INHL Issu:01-29-22 Qty: 2 for 50 days Sig: INHALE 2 Refills: 1 Last:12-27-22 PUFFS BY INHALATION FOUR TIMES A DAY Expr:01-30-23 NEEDED FOR IMMEDIATE RELIEF OF SHORTNESS OF BREATH *SHAKE WELL* 3) ATENOLOL 25MG TAB Qty: 90 for 90 days DISCONTINUED Issu:04-02-22 Sig: TAKE ONE TABLET BY MOUTH EVERY Refills: 0 Last:08-31-22 DAY FOR ANXIETY FOR ANXIETY Expr:04-03-23 4) CELECOXIB 100MG CAP Qty: 180 for 90 DISCONTINUED Issu:11-25-22 days Sig: TAKE ONE CAPSULE BY MOUTH Refills: 0 Last:11-26-22 TWICE A DAY FOR PAIN Expr:02-23-23 5) DULOXETINE HCL 20MG EC CAP Qty: 120 for DISCONTINUED Issu:10-09-22 30 days Sig: TAKE FOUR CAPSULES BY Refills: 0 Last:11-18-22 MOUTH EVERY DAY FOR ANXIETY, PAIN, AND Expr:10-10-23 DEPRESSION 6) DULOXETINE HCL 30MG EC CAP Qty: 270 for Issu:11-20-22 90 days Sig: TAKE THREE CAPSULES BY Refills: 0 Last:11-20-22 MOUTH EVERY MORNING FOR DEPRESSION Expr:02-18-23 7) DULOXETINE HCL 60MG EC CAP Qty: 30 for DISCONTINUED Issu:08-13-22 30 days Sig: TAKE ONE CAPSULE BY (EDIT) Last:09-03-22 MOUTH EVERY DAY FOR ANXIETY FOR Refills: 0 Expr:08-14-23 ANXIETY, PAIN, AND DEPRESSION 8) DULOXETINE HCL 60MG EC CAP Qty: 30 for DISCONTINUED Issu:06-03-22 30 days Sig: TAKE ONE CAPSULE BY Refills: 0 Last:07-09-22 MOUTH EVERY DAY FOR ANXIETY FOR Expr:06-04-23 ANXIETY, PAIN, AND DEPRESSION 9) DULOXETINE HCL 60MG EC CAP Qty: 30 for DISCONTINUED Issu:03-18-22 30 days Sig: TAKE ONE CAPSULE BY Refills: 0 Last:04-22-22 MOUTH EVERY DAY FOR ANXIETY, PAIN, AND Expr:03-19-23 DEPRESSION 10) FOLIC ACID 1MG TAB Qty: 90 for 90 days DISCONTINUED Issu:03-26-22 Sig: TAKE ONE TABLET BY MOUTH EVERY Refills: 0 Last:12-27-22 DAY Expr:03-27-23 11) OLANZAPINE 2.5MG TAB Qty: 30 for 30 DISCONTINUED Issu:11-20-22 days Sig: TAKE ONE TABLET BY MOUTH AT Refills: 1 Last:01-11-23 BEDTIME FOR IRRITABILITY AND SLEEP Expr:11-21-23 12) SILDENAFIL CITRATE 100MG TAB Qty: 6 for DISCONTINUED Issu:04-02-22 30 days Sig: TAKE ONE TABLET BY MOUTH Refills: 0 Last:11-18-22 EVERY DAY NEEDED 1 HOUR BEFORE Expr:04-03-23 ANTICIPATED SEXUAL ACTIVITY. FOR ERECTIONS. 13) SILDENAFIL CITRATE 100MG TAB Qty: 18 DISCONTINUED Issu:01-02-22 for 90 days Sig: TAKE ONE TABLET BY Refills: 3 Last:01-02-22 MOUTH EVERY DAY NEEDED 1 HOUR Expr:01-03-23 BEFORE ANTICIPATED SEXUAL ACTIVITY 14) TRAZODONE HCL 150MG TAB Qty: 90 for 90 DISCONTINUED Issu:01-06-23 days Sig: TAKE ONE TABLET BY MOUTH AT Refills: 0 Last:02-07-23 BEDTIME FOR SLEEP Expr:04-06-23 15) TRAZODONE HCL 50MG TAB Qty: 270 for 90 DISCONTINUED Issu:09-11-23 days Sig: TAKE THREE TABLETS BY MOUTH Refills: 3 Last:11-19-22 AT BEDTIME Expr:11-19-23 36 Total Medications PHYSICAL EXAM VS: Temp: 98.3 F [36.8 C] (04/01/2023 10:27) BP: 157/69 (04/01/2023 10:46) Pulse:54 (04/01/2023 10:27) Resp: 18 (04/01/2023 10:27) Pain: 0 (04/01/2023 10:27) Weight: WEIGHTS IN LAST 6 MONTHS: 142 (APR 01, 2023@10:27:36) General: Sitting in exam room, no acute distress Pulmonary: Clear to auscultation bilaterally, nonlabored breathing Cardiovascular: Regular rate and rhythm, no extra sounds Extremities: No lower extremity edema Abdomen: Nontender, nondistended Gait: Ataxic gait, uses electric scooter to ambulate, able to transfer from chair to scooter on own slowly. LABS and STUDIES WBC: 6.26 RBC: 3.02 L HGB: 8.9 L HCT: 28.2 L MCV: 93.4 MCH: 29.5 MCHC: 31.6 L RDW: 15.9 H PLT: 189 MPV: 10.3 GLUCOSE: 103 H UREA NITROGEN: 16 CREATININE: 1.4 H SODIUM: 138 POTASSIUM: 3.4 L CHLORIDE: 105 CO2: 26 CALCIUM: 8.5 PROTEIN,TOTAL: 6.3 ALBUMIN: 3.3 L BILIRUBIN,TOTAL: 0.3 MAGNESIUM: 1.8 ANION GAP: 7 ALKALINE PHOSPHATASE(37C): 93 SGOT(37C): 24 SGPT(37C): 10 CREATININE EGFR (CKD-EPI): 54 L B 12: 1040 H FOLATE: 13.6 VITAMIN D,TOTAL: 36 RETICULOCYTES, ABSOLUTE: 0.0416 RETICULOCYTE: 1.39 IMMATURE RETIC FRACTION: 16.6 H RETICULOCYTE HE: 25.4 L FERRITIN: 16.8 L TIBC: 381 IRON: 35 L IRON SATURATION: 9 L TRANSFERRIN: 305 /marli/ KAREN DOVE MD PHYSICIAN, [facility] Signed: 04/01/2023 12:34 06/19/2023 ADDENDUM STATUS: COMPLETED Millicent, received report from patient's [facility] provider he may be developing a pressure sore on his left buttocks. They are requesting authorization for weekly visits to monitor pressure area. Can you please help athorize? Thanks! fax [phone] phone [phone] /marli/ KAREN DOVE MD PHYSICIAN, [facility] Signed: 06/19/2023 08:58 Receipt Acknowledged By: 06/19/2023 10:28 /es/ JOSE BULLOCK RN REGISTERED NURSE 06/19/2023 ADDENDUM STATUS: COMPLETED Called and spoke with Patricia Brooks home care aide for Feli [phone]. She reports that she is visiting patient today. She states that she had faxed authorization to the home care department requesting weekly skilled nurse visits to monitor a developing pressure area on Vet's buttock's weekly but it was denied. Home Care: [employer] will co sign home care department to make this request for weekly skilled nurse visits to monitor a developing pressure area on Vet's buttocks. [employer] offered to order mepilex bordered foam. She wanted to hold on this until seeing patient today. Provided a direct phone number to call back. Home care-if request is authorized, agency is requesting faxed authorization orders. Dr. Dove: Patricia asked newswriter if Feli ever had his labs drawn pre-op endoscopy. Shared that he did not. Shared that GI did Vet's H & P. Patricia is concerned about Aniat's continued weakness and pain and is asking if it could be considered to have Feli's lab drawn in the community close to home. Aniat may not meet drive time but it is a hardship to get Aniat out of the house and to appointments as he does not drive and has to arrange transportation. Patricia states that he lives closest to [facility] and [facility]. She would be able to assist Vet with arranging a ride to a lab appointment if approved. [employer] also offered to move up Feli's appt with Dr. Dove which is due in August. This will be considered but Patricia still feels obtaining current lab work now would be helpful. Prior hgb 8.18 Mar 2023. /marli/ JOSE BULLOCK RN REGISTERED NURSE Signed: 06/19/2023 10:26 Receipt Acknowledged By: 06/19/2023 16:24 /kelly DOVE MD PHYSICIAN, [facility] 06/20/2023 12:22 /NIGEL Dutton [employer]KING [employer]ODUCTION CONTROL EXPERT 06/20/2023 ADDENDUM STATUS: COMPLETED CITC entered but declined because the patient doesn't meet drivetime critera. I've ordered CBC and iron count via [facility]. /kelly DOVE MD PHYSICIAN, [facility] Signed: 06/20/2023 08:36 06/20/2023 ADDENDUM STATUS: COMPLETED Received request from agency for authorizationto increase skilled nurse visits (SNV) from [EOW to weekly]. [facility] RN will Informed agency that request has been denied at this time. Per [place] guidance, requested service is considered a general health assessment (GHA), which is not a [facility] covered service. Patients must have a skilled clinical need in order to receive SNV. [facility] RN contacted agency Nurse Tiffany and educated her on the the use of PRN visits that are covered under current authorization. GHA & education on pressure sore prevention. Nurse Allen verbalized understanding and expressed that the has issues with transportation, his ability to follow up with his medical care needs and he is a fall risk. Pact team: [place] may benefit from services /NIGEL Dutton [employer]KING PIP[employer] CLE[employer]ODUCTION CONTROL EXPERT Signed: 06/20/2023 12:37 Receipt Acknowledged By: * AWAITING SIGNATURE * JOSE BULLOCK 06/20/2023 12:42 /kelly DOVE MD PHYSICIAN, [facility] KAREN DOVE [facility]
--- OUTSIDE RECORDS SUMMARY | 2023-08-05 14:08 | XMS_ITS | Encounter Summary ---
Author Name Department of [facility] Organization Department of [facility] Address [address] [place] [address] Support Name Relationship Address Phone ANTOINE SKELTON Next of Kin , RADHA [address] CARIE CHAVEZ Emergency Contact , [place] ANTOINE SKELTON Next of Kin , RADHA [address] KATHY CARIE Emergency Contact , [place] Insurance Providers: All historical and current Section [...] AID (WNR) Aug 08, 2013 MEDICAI D [id number] DERICK SKELTON PATIENT MEDICARE (WNR) MEDICARE (M) PART A Sep 07, 2016 PART A [id number] DERICK SKELTON PATIENT Selected Encounter This section includes the information on record at [place] for the Encounter. Date/Time Encounter Type Encounter Description Reason Pro vider Source Apr 03, 2023 10:04 AM Outpatient Encounter PRIMARY CARE/MEDICINE IHE Encounter Template Text not used by [place] Plan of Treatment: Future Appointments (+ 6 months) and Future Tests (+/- 45 days) The Plan of Treatment section includes future care activities for the patient from all [place] treatmentfacilities. This section includes future appointments and future orders which are active, pending or scheduled. Future Appointments This section includes appointments that were scheduled to occur 6 months from the date of the Encounter, up to a maximum of 20 appointments. The data comes from all [place] treatment facilities. Appointment Date/Time Appointment Type Appointme nt Facility Name Apr 08, 2023 09:30 AM AMBUL[facility]ORY [facility] Apr 22, 2023 07:00 AM [facility] May 01, 2023 09:00 AM AMBULATORY - MEDICINE [facility] Jun 04, 2023 09:00 AM AMBULATORY - MEDICINE [facility] Jun 04, 2023 09:15 AM AMBULATORY - MEDICINE [facility] July 16, 2023 09:00 AM AM[place]UL[place]ORY [place] [facility] Sep 23, 2023 08:15 AM [facility] Sep 23, 2023 09:15 AM AMBULATORY - MEDICINE [facility] Active, Pending, and Scheduled Orders This section includes a listing of several types of active, pending, and scheduled orders, including clinic medications orders, diagnostic test orders, procedure orders and consult orders; where the start date of the order is 45 days before the date of the Encounter or 45 days after the date of theEncounter. The data comes from all [facility] facilities. Test Date/Time Test Type Test Details Facility Name Apr 29, 2023 12:00 AM Laboratory - Chemi stry Order BASIC METABOLIC PANEL+MG PLASMA SP ONCE [facility] Apr 29, 2023 12:00 AM Laboratory - Chemi stry Order CBC BLOOD SP [facility] Lab Results: +/- 30 days of the encounter This section includes the Chemistry and Hematology Lab Results on record with [facility] for the [facility]. Radiology Reports and Pathology Reports are provided separately, in subsequent sections. Lab Results This section contains the Chemistry/Hematology Results that were resulted 30 days before or 30 daysafter the date of the Encounter. Date/Time Source Result Type Result - Unit Interpretation Reference Range Comment Apr 01, 2023 09:26 AM [facility] B 12 Specimen Type: SERUM No comment entered. Ordering Provider: GLEN DOVE Report Released Date/Time: Aug 20, 2022 09:56 AM Reporting Lab: [facility] [id number] Performing Lab: [facility] [id number] B 12 1040 H 213-816 Apr 01, 2023 09:26 AM [facility] FOLATE Specimen Type: SERUM No comment entered. Ordering Provider: PETTY,GLEN B Report Released Date/Time: Aug 20, 2022 09:56 AM Reporting Lab: [facility] [id number] Performing Lab: [facility] [id number] FOLATE 13.6 >7.0 Apr 01, 2023 09:26 AM [facility] VIT D 25-OH,TOTAL Specimen Type: SERUM No comment entered. Ordering Provider: GLEN DOVE Report Released Date/Time: Aug 20, 2022 09:56 AM Reporting Lab: [facility] [id number] Performing Lab: [facility] [id number] VIT D 25-OH,TOTAL 36 12-50 Apr 01, 2023 09:26 AM [facility] CBC Specimen Type: BLOOD No comment entered. Ordering Provider: GLEN DOVE Report Released Date/Time: Aug 20, 2022 09:56 AM Reporting Lab: [facility] [id number] Performing Lab: [facility] [id number] WBC 6.26 4.0-11.0 RBC 3.02 L 4.6-6.2 HGB 8.9 L 13.5-17.9 HCT 28.2 L 41-54 MCV 93.4 80-100 MCH 29.5 27-33 MCHC 31.6 L 32.0-37.5 PLT 189 150-400 MPV 10.3 7.4-10.4 RDW 15.9 H 11.5-14.5 Apr 01, 2023 09:26 AM [facility] COMPREHENSIVE METABOLIC PANEL+MG Specimen Type: PLASMA No comment entered. Ordering Provider: GLEN DOVE Report Released Date/Time: Aug 20, 2022 09:56 AM Reporting Lab: [facility] [id number] Performing Lab: [facility] [id number] CREATININE 1.4 H 0.7-1.2 UREA NITROGEN 16 [...] L >60 Apr 01, 2023 09:26 AM [facility] RETICS Specimen Type: BLOOD Comment: Specimen received is PLASMA. Ordering Provider: GLEN DOVE Report Released Date/Time: Apr 01, 2023 10:44 AM Reporting Lab: [facility] [id number] Performing Lab: [facility] [address] ABS RETIC 0.0416 0.0300-0.1 000 .RETICULOCYTE 1.39 0.6-2.0 IMMATURE RETIC 16.6 H 1.0-14.0 .RETICULOCYTE HE 25.4 L 28.2-36.6 Apr 01, 2023 09:26 AM [facility] IRON GROUP Specimen Type: SERUM Comment: Specimen received is PLASMA. Ordering Provider: GLEN DOVE Report Released Date/Time: Apr 01, 2023 10:44 AM Reporting Lab: [facility] [id number] Performing Lab: [facility] [id number] IRON 35 L 65-175 TIBC,CALCULATED 381 250-425 FERRITIN 16.8 L 21.8-274.7 IRON SATURATION 9 L 20-50 TRANSFERRIN 305 163-382 Social History: Smoking Status (Most current) and Tobacco Use (All prior to encounter date) This section includes the most current, and the historical, smoking and tobacco- related health factors from the [place] facility where the Encounter took place. Current Smoking Status This section includes the most current smoking, or tobacco-related health factor, from the [place] facility where the Encounter took place. Date/Time Current Smoking Status Comment Silvia ity Aug 20, 2022 09:15 AM VA-TOBACCO USER EVERY DAY [facility] Tobacco Use History This section includes a history of the smoking, or tobacco-related health factors, that were collected on or before the date of the Encounter. The data comes from the [place] facility where the Encounter took place. Date/Time Smoking Status/Tobacco Use Comment F acility Aug 20, 2022 09:15 AM VA-TOBACCO USE ADVICE [facility] Aug 20, 2022 09:15 AM VA-TOBACCO USE SOLDERER TORCH NO [facility] Aug 20, 2022 09:15 AM VA-TOBACCO USE MED NO [facility] Aug 20, 2022 09:15 AM VA-TOBACCO USE WI 30 MIN OF WAKE UP [facility] Aug 20, 2022 09:15 AM VA-TOBACCO USER EVERY DAY [facility] Sep 12, 2021 09:15 AM VA-TOBACCO USE 30 YEARS OR MORE [facility] Sep 12, 2021 09:15 AM VA-TOBACCO USE ADVICE [facility] Sep 12, 2021 09:15 AM VA-TOBACCO USE SOLDERER TORCH NO [facility] Sep 12, 2021 09:15 AM VA-TOBACCO USE MED NO [facility] Sep 12, 2021 09:15 AM VA-TOBACCO USE WI 30 MIN OF WAKE UP [facility] Sep 12, 2021 09:15 AM VA-TOBACCO USER EVERY DAY [facility] Sep 01, 2020 01:30 PM VA-TOBACCO DOESNT USE WI 30 MIN WAKEUP [facility] Sep 01, 2020 01:30 PM VA-TOBACCO USE 30 YEARS OR MORE [facility] Sep 01, 2020 01:30 PM VA-TOBACCO USE ADVICE [facility] Sep 01, 2020 01:30 PM VA-TOBACCO USE SOLDERER TORCH NO [facility] Sep 01, 2020 01:30 PM VA-TOBACCO USE MED NO [facility] Sep 01, 2020 01:30 PM VA-TOBACCO USER EVERY DAY [facility] Sep 27, 2019 09:35 AM VA-TOBACCO USE 30 YEARS OR MORE [facility] Sep 27, 2019 09:35 AM VA-TOBACCO USE ADVICE [facility] Sep 27, 2019 09:35 AM VA-TOBACCO USE SOLDERER TORCH NO [facility] Sep 27, 2019 09:35 AM VA-TOBACCO USE MED NO [facility] Sep 27, 2019 09:35 AM VA-TOBACCO USE WI 30 MIN OF WAKE UP [facility] Sep 27, 2019 09:35 AM VA-TOBACCO USER EVERY DAY [facility] Mar 04, 2018 01:45 PM VA-TOBACCO USE 30 YEARS OR MORE [facility] Mar 04, 2018 01:45 PM VA-TOBACCO USE ADVICE [facility] Mar 04, 2018 01:45 PM VA-TOBACCO USE SOLDERER TORCH NO [facility] Mar 04, 2018 01:45 PM VA-TOBACCO USE MED NO [facility] Mar 04, 2018 01:45 PM VA-TOBACCO USE WI 30 MIN OF WAKE UP [facility] Mar 04, 2018 01:45 PM VA-TOBACCO USER EVERY DAY [facility] Apr 22, 2017 10:01 AM CURRENT TOBACCO USER [facility] Apr 16, 2016 09:52 AM CURRENT TOBACCO USER [facility] July 26, 2014 09:08 AM CURRENT TOBACCO USER [facility] Dec 31, 2013 10:06 AM CURRENT TOBACCO USER [facility] Sep 05, 2012 09:27 AM CURRENT TOBACCO USER [facility] Nov 25, 2011 09:12 AM CURRENT TOBACCO USER [facility] Feb 08, 2011 10:04 AM CURRENT TOBACCO USER [facility] May 01, 2010 10:24 AM CURRENT TOBACCO USER [facility] Jul 03, 2009 08:42 AM CURRENT TOBACCO USER [facility] Pathology Reports: +/- 30 days of the [...] the Encounter. The data comes from all [facility] facilities. Date/Time Pathology Report Provider Source Apr 09, 2023 02:30 PM LR SURGICAL PATHOL OGY REPORT: LOCAL TITLE: LR SURGICAL PATHOLOGY REPORT STANDARD TITLE: PATHOLOGY REPORT DATE OF NOTE: APR 09, 2023@14:30:01 ENTRY DATE: APR 09, 2023@14:30:01 AUTHOR: ANDERSON ZAMORA EXP COSIGNER: URGENCY: STATUS: COMPLETED $APHDR Reporting Lab: [facility] [CLIA# [id number]] [place] [address] - - - - - - - [...] 0.3 cm in greatest dimension. [facility] MI[facility]OSCOPIC DESCRIPTION: Microscopic examination performed. BB DIAGNOSIS: 1. Stomach, antrum body, biopsy-- - Reactive gastropathy - H. pylori stain: Negative 2. 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 - No evidence of dysplasia or malignancy /marli/ ANDERSON ZAMORA MD STAFF PATHOLOGIST Signed Apr 09, 2023@14:30 Performing Laboratory: Surgical Pathology Report Performed By: [facility] [CLIA# [id number]] [place] [address] $FTR - - - - - - - - - - - - - - - - - - - - - - - - - - - - - - - - - - - - - - - - (End of report) ANDERSON ZAMORA MD bcb Date Apr 09, 2023 - - - - - - - - - - - - - - - - - - - - - - - - - - - - - - - - - - - - - - - - FRANCES SKELTON STANDARD FORM 515 ID:[id number] SEX:M :1950 AGE: 72 LOC:MSP GI COLONOSCOPY A PCP: Glen Dove MD /marli/ ANDERSON ZAMORA MD STAFF PATHOLOGIST Signed: 04/09/2023 14:30 ANDERSON ZAMORA [facility] Encounter Notes: All associated encounter notes This section contains the clinical notes associated to the Encounter. Date/Time Encounter Note(s) Provider Source Apr 03, 2023 10:04 AM LETTERS: LOCAL TITLE: FOLLOW UP RESULTS LETTER STANDARD TITLE: LETTERS DATE OF NOTE: APR 03, 2023@10:04 ENTRY DATE: APR 03, 2023@10:04:38 AUTHOR: GLEN DOVE EXP COSIGNER: URGENCY: STATUS: COMPLETED [facility] [place] [address] Mar FRANCES SKELTON [address] [facility] [address] Dear : I wanted to let you know that I heard from [employer], and unfortunately chair lifts are not [facility] the [facility]. Sorry for the dissapointing news! If you have any further questions or problems, please contact our nursing staff or provider at the following number: [phone]. Sincerely, GLEN DOVE MD PHYSICIAN, [facility] GLEN DOVE [facility]
--- OUTSIDE RECORDS SUMMARY | 2023-08-05 14:08 | XMS_ITS | Encounter Summary ---
Author Name [facility] of [facility] Organization [facility] of [facility] Address [address] [place] [address] Support Name Relationship Address Phone ANTOINE SKELTON Next of Kin , RADHA [address] CARIE CHAVEZ Emergency Contact , [place] ANTOINE SKELTON Next of Kin , RADHA [address] KATHY CARIE Emergency Contact , [place] Insurance Providers: All historical and current Section [...] AID (WNR) Aug 08, 2013 MEDICAI D [id number] [phone] DERICK SKELTON PATIENT MEDICARE (WNR) MEDICARE (M) PART A Sep 07, 2016 PART A [id number] DERICK SKELTON PATIENT Selected Encounter This section includes the information on record at [place] for the Encounter. Date/Time Encounter Type Encounter Description Reason Provider Source May 01, 2023 10:05 AM Outpatient Encounter PRIMARY CARE/MEDICINE JOSE BULLOCK Encounter Template Text not used by [place] [...] 04, 2023 09:00 AM AMBULATORY - MEDICINE [facility] Jun 04, 2023 09:15 AM AMBULATORY - MEDICINE [facility] July 16, 2023 09:00 AM [facility] [place] [facility] [place] [facility] Sep 23, 2023 08:15 AM [facility] Sep 23, 2023 09:15 AM AMBULATORY - MEDICINE [facility] Active, Pending, and Scheduled Orders This section includes a listing of several types of active, pending, and scheduled orders, including clinic medications orders, diagnostic test orders, procedure orders and consult orders; where the start date of the order is 45 days before the date of the Encounter or 45 days after the date of theEncounter. The data comes from all [facility]. Test Date/Time Test Type Test Details Facility Name Apr 29, 2023 12:00 AM Laboratory - Chemi stry Order CBC BLOOD SP [facility] Apr 29, 2023 12:00 AM Laboratory - Chemi stry Order BASIC METABOLIC PANEL+MG PLASMA SP ONCE [facility] Social History: Smoking Status (Most current) and [...] 2022 09:15 AM VA-TOBACCO USER EVERY DAY [facility] Tobacco Use History This section includes a history of the smoking, or tobacco-related health factors, that were collected on or before the date of the Encounter. The data comes from the [place] facility where the Encounter took place. 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 NO [facility] Aug 20, 2022 09:15 AM VA-TOBACCO USE MED NO [facility] Aug 20, 2022 09:15 AM VA-TOBACCO USE WI 30 MIN OF WAKE UP [facility] Aug 20, 2022 09:15 AM VA-TOBACCO USER EVERY DAY [facility] Sep 12, 2021 09:15 AM VA-TOBACCO USE 30 YEARS OR MORE [facility] Sep 12, 2021 09:15 AM VA-TOBACCO USE ADVICE [facility] Sep 12, 2021 09:15 AM VA-TOBACCO USE SENIOR TECHNICAL WRITER NO [facility] Sep 12, 2021 09:15 AM VA-TOBACCO USE MED NO [facility] Sep 12, 2021 09:15 AM VA-TOBACCO USE WI 30 MIN OF WAKE UP [facility] Sep 12, 2021 09:15 AM VA-TOBACCO USER EVERY DAY [facility] Sep 01, 2020 01:30 PM VA-TOBACCO DOESNT USE WI 30 MIN WAKEUP [facility] Sep 01, 2020 01:30 PM VA-TOBACCO USE 30 YEARS OR MORE [facility] Sep 01, 2020 01:30 PM VA-TOBACCO USE ADVICE [facility] Sep 01, 2020 01:30 PM VA-TOBACCO USE SENIOR TECHNICAL 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 NO [facility] Sep 01, 2020 01:30 PM VA-TOBACCO USE MED NO [facility] Sep 01, 2020 01:30 PM VA-TOBACCO USER EVERY DAY [facility] Sep 27, 2019 09:35 AM VA-TOBACCO USE 30 YEARS OR MORE [facility] Sep 27, 2019 09:35 AM VA-TOBACCO USE ADVICE [facility] Sep 27, 2019 09:35 AM VA-TOBACCO USE SENIOR TECHNICAL 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 NO [facility] Sep 27, 2019 09:35 AM VA-TOBACCO USE MED NO [facility] Sep 27, 2019 09:35 AM VA-TOBACCO USE WI 30 MIN OF WAKE UP [facility] Sep 27, 2019 09:35 AM VA-TOBACCO USER EVERY DAY [facility] Mar 04, 2018 01:45 PM VA-TOBACCO USE 30 YEARS OR MORE [facility] Mar 04, 2018 01:45 PM VA-TOBACCO USE ADVICE [facility] Mar 04, 2018 01:45 PM VA-TOBACCO USE SENIOR TECHNICAL WRITER NO [facility] Mar 04, 2018 01:45 PM VA-TOBACCO USE MED NO [facility] Mar 04, 2018 01:45 PM VA-TOBACCO USE WI 30 MIN OF WAKE UP [facility] Mar 04, 2018 01:45 PM VA-TOBACCO USER EVERY DAY [facility] Apr 22, 2017 10:01 AM CURRENT TOBACCO USER [facility] Apr 16, 2016 09:52 AM CURRENT TOBACCO USER [facility] July 26, 2014 09:08 AM CURRENT TOBACCO USER [facility] Dec 31, 2013 10:06 AM CURRENT TOBACCO USER [facility] Sep 05, 2012 09:27 AM CURRENT TOBACCO USER [facility] Nov 25, 2011 09:12 AM CURRENT TOBACCO USER [facility] Feb 08, 2011 10:04 AM CURRENT TOBACCO USER [facility] May 01, 2010 10:24 AM CURRENT TOBACCO USER [facility] Jul 03, 2009 08:42 AM CURRENT TOBACCO USER [facility] Pathology Reports: +/- 30 days of the [...] the Encounter. The data comes from all [facility] facilities. Date/Time Pathology Report Provider Source Apr 09, 2023 02:30 PM LR SURGICAL PATHOL OGY REPORT: LOCAL TITLE: LR SURGICAL PATHOLOGY REPORT STANDARD TITLE: PATHOLOGY REPORT DATE OF NOTE: APR 09, 2023@14:30:01 ENTRY DATE: APR 09, 2023@14:30:01 AUTHOR: ANDERSON ZAMORA EXP COSIGNER: URGENCY: STATUS: COMPLETED $APHDR Reporting Lab: [facility] [CLIA# [id number]] [place] [address] - - - - - - - [...] - - - $TEXT Submitted by: SOWMYA TUNRER Date obtained: Apr 08, 2023 - - [...] 0.3 cm in greatest dimension. [facility]: Microscopic examination performed. BB DIAGNOSIS: 1. Stomach, antrum body, biopsy-- - Reactive gastropathy - H. pylori stain: Negative 2. 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 - No evidence of dysplasia or malignancy /marli/ ANDERSON ZAMORA MD STAFF PATHOLOGIST Signed Apr 09, 2023@14:30 Performing Laboratory: Surgical Pathology Report Performed By: [facility] [CLIA# [id number]] [place] [address] $FTR - - - - - - [...] - - FRANCES SKELTON STANDARD FORM 515 ID:[id number] SEX:M :1950 AGE: 72 LOC:[facility] GI COLONOSCOPY A PCP: Karen Dove MD /marli/ ANDERSON ZAMORA MD STAFF PATHOLOGIST Signed: 04/09/2023 14:30 ANDERSON ZAMORA [facility] Encounter Notes: All associated encounter notes This section contains the clinical notes associated to the Encounter. Date/Time Encounter Note(s) Provider Source May 07, 2023 01:03 PM PRIMARY CARE SECUR E MESSAGING: LOCAL TITLE: PRIMARY CARE SECURE MESSAGING STANDARD TITLE: PRIMARY CARE SECURE MESSAGING DATE OF NOTE: MAY 07, 2023@13:03 ENTRY DATE: MAY 07, 2023@12:03:27 AUTHOR: JANNY THAKKAR EXP COSIGNER: URGENCY: STATUS: COMPLETED PRIMARY CARE SECURE MESSAGING Has ADDENDA ------Original Message ---- Sent: 05/01/2023 06:39 PM ET From: FRANCES SKELTON To: [facility] Primary CarePaolo L. (Sherita) Subject: General:General Inquiry 1. BPs have been running 120-145/55-70. Occasionally a bit higher but it comes down with rest. 2. Could you send a referral to [facility]? 3. Jez is looking better today than a couple of weeks ago, but still has high level of legs restlessness, Headaches, legs locking up, and overall fatigue. 4. Caregiver assistance: Jez would not be able to live in his home without his sister's help. Do you know the process to get caregiver assistance? Darryl [phone] (machine sprayer) ------Original Message ---- Sent: 05/07/2023 12:29 PM ET From: FRANCES SKELTON To: [facility] Primary CarePaolo L. (Sherita) Subject: General:General Inquiry Chiropractic -correct, it is for his low back. Caregiver Assistance - I did some more research, it looks like he needs to apply for Program of Comprehensive Assistance for Family Caregivers, I can help him do that when I see him later today. Darryl [phone] (machine sprayer) /kelly THAKKAR REGISTERED NURSE Signed: 05/07/2023 12:03 05/07/2023 ADDENDUM STATUS: COMPLETED FYI PCP-please enter [facility] chiro consult if appropriate. Thanks! /kelly THAKKAR REGISTERED NURSE Signed: 05/07/2023 12:04 Receipt Acknowledged By: * AWAITING SIGNATURE * KAREN DOVE THOMAS J [facility] May 07, 2023 12:03 PM ADDENDUM: LOCAL TITLE: Addendum STANDARD TITLE: ADDENDUM DATE OF NOTE: MAY 07, 2023@12:03:40 ENTRY DATE: MAY 07, 2023@12:03:40 AUTHOR: JANNY THAKKAR EXP COSIGNER: URGENCY: STATUS: COMPLETED FYI PCP-please enter CC chiro consult if appropriate. Thanks! /kelly THAKKAR REGISTERED NURSE Signed: 05/07/2023 12:04 Receipt Acknowledged By: 05/07/2023 14:12 /marli/ KAREN DOVE MD PHYSICIAN, [facility] --- Original Document --- 05/07/23 PRIMARY CARE SECURE MESSAGING: ------Original Message ---- Sent: 05/01/2023 06:39 PM ET From: FRANCES SKELTON To: [facility] Primary CarePaolo L. (Sherita) Subject: General:General Inquiry 1. BPs have been running 120-145/55-70. Occasionally a bit higher but it comes down with rest. 2. Could you send a referral to [facility] for [facility]? 3. Jez is looking better today than a couple of weeks ago, but still has high level of legs restlessness, Headaches, legs locking up, and overall fatigue. 4. Caregiver assistance: Jez would not be able to live in his home without his sister's help. Do you know the process to get caregiver assistance? Darryl [phone] (machine sprayer) ------Original Message ---- Sent: 05/07/2023 12:29 PM ET From: FRANCES SKELTON To: [facility] Primary CarePaolo L. (Sherita) Subject: General:General Inquiry Chiropractic -correct, it is for his low back. Caregiver Assistance - I did some more research, it looks like he needs to apply for Program of Comprehensive Assistance for Family Caregivers, I can help him do that when I see him later today. Darryl [phone] (machine sprayer) /marli/ JANNY THAKKAR REGISTERED NURSE Signed: 05/07/2023 12:03 05/07/2023 ADDENDUM STATUS: UNSIGNED You may not VIEW this UNSIGNED Addendum. JANNY THAKKAR [facility] May 01, 2023 10:05 AM PRIMARY CARE [email or web address] E MESSAGING: LOCAL TITLE: PRIMARY CARE SECURE MESSAGING STANDARD TITLE: PRIMARY CARE SECURE MESSAGING DATE OF NOTE: MAY 01, 2023@10:05 ENTRY DATE: MAY 01, 2023@09:05:43 AUTHOR: JOSE BULLOCK EXP COSIGNER: URGENCY: STATUS: COMPLETED ------Original Message ---- Sent: 05/01/2023 10:05 AM ET From: JOSE BULLOCK To: FRANCES SKELTON Subject: General:General Inquiry Enio Avalos Reaching out from Dr. Dove's office in primary care. He wanted me to follow up with obtaining your home blood pressure readings as you were elevated in clinic when you saw him in March. I just tried calling you and the voicemail didn't sound like your name. Have you been checking any blood pressures at home that you can share. Feel free to call me back of reply back to this message. Thanks. Millicent Bullock RN [facility] [phone] /es/ JOSE BULLOCK RN REGISTERED NURSE Signed: 05/01/2023 09:05 JOSE BULLOCK [facility]
--- OUTSIDE RECORDS SUMMARY | 2023-08-05 14:09 | XMS_ITS | Encounter Summary ---
Author Name Department of [facility] Organization Department of [facility] Address [address] [place] [address] Support Name Relationship Address Phone ANTOINE SKELTON Next of Kin , RADHA [address] CARIE CHAVEZ Emergency Contact , [place] ANTOINE SKELTON Next of Kin , RADHA [address] KATHY CARIE Emergency Contact , [place] Insurance [...] AID (WNR) Aug 08, 2013 MEDICAI D [id number] DERICK SKELTON PATIENT MEDICARE (WNR) MEDICARE (M) PART A Sep 07, 2016 PART A [id number] DERICK SKELTON PATIENT Selected Encounter This section includes the information on record at [place] for the Encounter. Date/Time Encounter Type Encounter Description Reason Provider Source May 07, 2023 03:14 PM Outpatient Encounter PRIMARY CARE/MEDICINE JANNY THAKKAR Gillian Encounter Template Text not used by [place] Plan of Treatment: Future Appointments (+ 6 months) and Future Tests (+/- 45 days) The Plan of Treatment section includes future care activities for the patient from all [place] treatmentfacilities. This section includes future appointments and [...] 04, 2023 09:00 AM AMBULATORY - MEDICINE [facility] Jun 04, 2023 09:15 AM AMBULATORY - MEDICINE [facility] July 16, 2023 09:00 AM [facility] [place] [facility] Sep 23, 2023 08:15 AM [facility] - NONE [facility] Sep 23, 2023 09:15 AM AMBULATORY - MEDICINE [facility] Active, Pending, and Scheduled Orders This section includes a listing of several types of active, pending, and scheduled orders, including clinic medications orders, diagnostic test orders, procedure orders and consult orders; where the start date of the order is 45 days before the date of the Encounter or 45 days after the date of theEncounter. The data comes from all [facility]. Test Date/Time Test Type Test Details Facility Name Apr 29, 2023 12:00 AM Laboratory - Chemi stry Order BASIC METABOLIC PANEL+MG PLASMA SP ONCE [facility] Apr 29, 2023 12:00 AM Laboratory - Chemi stry Order CBC BLOOD SP [facility] Social History: Smoking Status (Most current) and Tobacco Use (All prior to encounter date) This section includes the most current, and the historical, smoking and tobacco- related health factors from the [place] facility where the Encounter took place. Current Smoking Status This section includes the most current smoking, or tobacco-related health factor, from the [place] facility where the Encounter took place. Date/Time Current Smoking Status Comment Facil ity Aug 20, 2022 09:15 AM VA-TOBACCO USE 30 YEARS OR MORE [facility] Tobacco Use History This section includes a history of the smoking, or tobacco-related health factors, that were collected on or before the date of the Encounter. The data comes from the [place] facility where the Encounter took place. Date/Time Smoking Status/Tobacco Use Comment F acility Aug 20, 2022 09:15 AM VA-TOBACCO USE ADVICE [facility] Aug 20, 2022 09:15 AM VA-TOBACCO USE [place] RANGER NO [facility] Aug 20, 2022 09:15 AM VA-TOBACCO USE MED NO [facility] Aug 20, 2022 09:15 AM VA-TOBACCO USE WI 30 MIN OF WAKE UP [facility] Aug 20, 2022 09:15 AM VA-TOBACCO USER EVERY DAY [facility] Sep 12, 2021 09:15 AM VA-TOBACCO USE 30 YEARS OR MORE [facility] Sep 12, 2021 09:15 AM VA-TOBACCO USE ADVICE [facility] Sep 12, 2021 09:15 AM VA-TOBACCO USE [place] RANGER NO [facility] Sep 12, 2021 09:15 AM VA-TOBACCO USE MED NO [facility] Sep 12, 2021 09:15 AM VA-TOBACCO USE WI 30 MIN OF WAKE UP [facility] Sep 12, 2021 09:15 AM VA-TOBACCO USER EVERY DAY [facility] Sep 01, 2020 01:30 PM VA-TOBACCO DOESNT USE WI 30 MIN WAKEUP [facility] Sep 01, 2020 01:30 PM VA-TOBACCO USE 30 YEARS OR MORE [facility] Sep 01, 2020 01:30 PM VA-TOBACCO USE ADVICE [facility] Sep 01, 2020 01:30 PM VA-TOBACCO USE [place] RANGER NO [facility] Sep 01, 2020 01:30 PM VA-TOBACCO USE MED NO [facility] Sep 01, 2020 01:30 PM VA-TOBACCO USER EVERY DAY [facility] Sep 27, 2019 09:35 AM VA-TOBACCO USE 30 YEARS OR MORE [facility] Sep 27, 2019 09:35 AM VA-TOBACCO USE ADVICE [facility] Sep 27, 2019 09:35 AM VA-TOBACCO USE [place] RANGER NO [facility] Sep 27, 2019 09:35 AM VA-TOBACCO USE MED NO [facility] Sep 27, 2019 09:35 AM VA-TOBACCO USE WI 30 MIN OF WAKE UP [facility] Sep 27, 2019 09:35 AM VA-TOBACCO USER EVERY DAY [facility] Mar 04, 2018 01:45 PM VA-TOBACCO USE 30 YEARS OR MORE [facility] Mar 04, 2018 01:45 PM VA-TOBACCO USE ADVICE [facility] Mar 04, 2018 01:45 PM VA-TOBACCO USE [place] RANGER NO [facility] Mar 04, 2018 01:45 PM VA-TOBACCO USE MED NO [facility] Mar 04, 2018 01:45 PM VA-TOBACCO USE WI 30 MIN OF WAKE UP [facility] Mar 04, 2018 01:45 PM VA-TOBACCO USER EVERY DAY [facility] Apr 22, 2017 10:01 AM CURRENT TOBACCO USER [facility] Apr 16, 2016 09:52 AM CURRENT TOBACCO USER [facility] July 26, 2014 09:08 AM CURRENT TOBACCO USER [facility] Dec 31, 2013 10:06 AM CURRENT TOBACCO USER [facility] Sep 05, 2012 09:27 AM CURRENT TOBACCO USER [facility] Nov 25, 2011 09:12 AM CURRENT TOBACCO USER [facility] Feb 08, 2011 10:04 AM CURRENT TOBACCO USER [facility] May 01, 2010 10:24 AM CURRENT TOBACCO USER [facility] Jul 03, 2009 08:42 AM CURRENT TOBACCO USER [facility] Pathology Reports: +/- 30 days of the [...] the Encounter. The data comes from all [facility] facilities. Date/Time Pathology Report Provider Source Apr 09, 2023 02:30 PM LR SURGICAL PATHOL OGY REPORT: LOCAL TITLE: LR SURGICAL PATHOLOGY REPORT STANDARD TITLE: PATHOLOGY REPORT DATE OF NOTE: APR 09, 2023@14:30:01 ENTRY DATE: APR 09, 2023@14:30:01 AUTHOR: ANDERSON ZAMORA EXP COSIGNER: URGENCY: STATUS: COMPLETED $APHDR Reporting Lab: [facility] [CLIA# [id number]] [place] [address] - - - - - - - [...] 0.3 cm in greatest dimension. CE (D) [facility]sk MICROSCOPIC DESCRIPTION: Microscopic examination performed. BB DIAGNOSIS: 1. Stomach, antrum body, biopsy-- - Reactive gastropathy - H. pylori stain: Negative 2. 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 - No evidence of dysplasia or malignancy /marli/ ANDERSON ZAMORA MD STAFF PATHOLOGIST Signed Apr 09, 2023@14:30 Performing Laboratory: Surgical Pathology Report Performed By: [facility] [CLIA# [id number]] [place] [address] $FTR - - - - - - [...] - - FRANCES SKELTON STANDARD FORM 515 ID:[id number] SEX:M :1950 AGE: 72 LOC:[facility] GI COLONOSCOPY A PCP: Glen Boone MD /marli/ ANDERSON ZAMORA MD STAFF PATHOLOGIST Signed: 04/09/2023 14:30 ANDERSON ZAMORA [facility] Encounter Notes: All associated encounter notes This section contains the clinical notes associated to the Encounter. Date/Time Encounter Note(s) Provider Source May 07, 2023 03:14 PM PRIMARY CARE SECUR E MESSAGING: LOCAL TITLE: PRIMARY CARE SECURE MESSAGING STANDARD TITLE: PRIMARY CARE SECURE MESSAGING DATE OF NOTE: MAY 07, 2023@15:14 ENTRY DATE: MAY 07, 2023@14:14:30 AUTHOR: JANNY THAKKAR EXP COSIGNER: URGENCY: STATUS: COMPLETED PRIMARY CARE SECURE MESSAGING Has ADDENDA ------Original Message ---- Sent: 05/07/2023 02:49 PM ET From: FRANCES SKELTON To: [facility] Primary CarePaolo L. (Sherita) Subject: Appointment:GI procedure 06/03 preop Jez was rescheduled from 05/26 to for a preop (we think). He is not able to make the visit tomorrow (). We tried calling to reschedule but haven't been able to get through. Online scheduling shows 05/08 as the only available date until the procedure but that date also doesn't work for Jez's ride. Could you call Jez to reschedule the preop? Mon, Tues, Fri are the weekdays he has rides available. Darryl [phone] (pin setter) /kelly THAKKAR REGISTERED NURSE Signed: 05/07/2023 14:14 05/07/2023 ADDENDUM STATUS: COMPLETED FYI MSA-new RTC placed, associate PACT appropriate r/t scheduling. Please contact vet to schedule, thanks! /kelly THAKKAR REGISTERED NURSE Signed: 05/07/2023 14:15 Receipt Acknowledged By: * AWAITING SIGNATURE * ELLEN RODRIGUEZ THOMAS J [facility] May 07, 2023 02:14 PM ADDENDUM: LOCAL TITLE: Addendum STANDARD TITLE: ADDENDUM DATE OF NOTE: MAY 07, 2023@14:14:52 ENTRY DATE: MAY 07, 2023@14:14:53 AUTHOR: JANNY THAKKAR EXP COSIGNER: URGENCY: STATUS: COMPLETED FYI MSA-new RTC placed, associate PACT appropriate r/t scheduling. Please contact vet to schedule, thanks! /kelly THAKKAR REGISTERED NURSE Signed: 05/07/2023 14:15 Receipt Acknowledged By: 05/08/2023 09:02 /marli/ ELLEN RODRIGUEZ no --- Original Document --- 05/07/23 PRIMARY CARE SECURE MESSAGING: ------Original Message ---- Sent: 05/07/2023 02:49 PM ET From: FRANCES SKELTON To: [facility] Primary Care, Rayray Boone (Sherita) Subject: Appointment:GI procedure 06/03 preop Jez was rescheduled from 05/26 to for a preop (we think). He is not able to make the visit tomorrow (). We tried calling to reschedule but haven't been able to get through. Online scheduling shows 05/08 as the only available date until the procedure but that date also doesn't work for Jez's ride. Could you call Jez to reschedule the preop? Mon, Tues, Fri are the weekdays he has rides available. Darryl [phone] (pin setter) /marli/ JANNY THAKKAR REGISTERED NURSE Signed: 05/07/2023 14:14 JANNY THAKKAR [facility]
--- OUTSIDE RECORDS SUMMARY | 2023-08-05 14:10 | XMS_ITS | Encounter Summary ---
Author Name [facility] Organization Department of [facility] Address [address] [place] [address] Support Name Relationship Address Phone ANTOINE SKELTON Next of Kin , RADHA [address] CARIE CHAVEZ Emergency Contact , [place] ANTOINE SKELTON Next of Kin , RADHA [address] CARIE CHAVEZ Emergency Contact , [place] Insurance Providers: All [...] AID (WNR) Aug 08, 2013 MEDICAI D [id number] DERICK SKELTON PATIENT MEDICARE (WNR) MEDICARE (M) PART A Sep 07, 2016 PART A [id number] DERICK SKELTON PATIENT Selected Encounter This section includes the information on record at [place] for the Encounter. Date/Time Encounter Type Encounter Description Reason Pro vider Source May 15, 2023 01:03 PM Outpatient Encounter ADMIN PAT ACTIVTIES (MASNONCT) IHE Encounter Template Text not used by [place] Plan of Treatment: Future Appointments (+ 6 months) and Future Tests (+/- 45 days) The Plan of Treatment section includes future care activities for the patient from all [place] treatmentfacilities. This section includes future appointments and future orders which are active, pending or scheduled. Future Appointments This section includes appointments that were scheduled to occur 6 months from the date of the Encounter, up to a maximum of 20 appointments. The data comes from all [facility]. Appointment Date/Time Appointment Type Appointme nt Facility Name Jun 04, 2023 09:00 AM AMBULATORY - MEDICINE [facility] Jun 04, 2023 09:15 AM AMBULATORY - MEDICINE [facility] July 16, 2023 09:00 AM [place] [facility] Sep 23, 2023 08:15 AM AM[facility]ORY - NONE [facility] Sep 23, 2023 09:15 AM AMBULATORY - MEDICINE [facility] Active, Pending, and Scheduled Orders This section includes a listing of several types of active, pending, and scheduled orders, including clinic medications orders, diagnostic test orders, procedure orders and consult orders; where the start date of the order is 45 days before the date of the Encounter or 45 days after the date of theEncounter. The data comes from all [facility]. Test Date/Time Test Type Test Details Facility Name Apr 29, 2023 12:00 AM Laboratory - Chemi stry Order CBC BLOOD SP [facility] Apr 29, 2023 12:00 AM Laboratory - Chemi stry Order BASIC METABOLIC PANEL+MG PLASMA SP ONCE [facility] Jun 27, 2023 12:19 PM Consult Order COMMUNITY CARE-CHIROPRACTIC Cons Slitting Machine Feeder's Choice [facility] Social History: Smoking Status (Most current) and Tobacco Use (All prior to encounter date) This section includes the most current, and the historical, smoking and tobacco- related health factors from the [place] facility where the Encounter took place. Current Smoking Status This section includes the most current smoking, or tobacco-related health factor, from the [place] facility where the Encounter took place. Date/Time Current Smoking Status Comment Facil ity Aug 20, 2022 09:15 AM VA-TOBACCO USE 30 YEARS OR MORE [facility] Tobacco Use History This section includes a history of the smoking, or tobacco-related health factors, that were collected on or before the date of the Encounter. The data comes from the [place] facility where the Encounter took place. Date/Time Smoking Status/Tobacco Use Comment F acility Aug 20, 2022 09:15 AM VA-TOBACCO USE ADVICE [facility] Aug 20, 2022 09:15 AM VA-TOBACCO USE ELECTRON BEAM WELDER NO [facility] Aug 20, 2022 09:15 AM VA-TOBACCO USE MED NO [facility] Aug 20, 2022 09:15 AM VA-TOBACCO USE WI 30 MIN OF WAKE UP [facility] Aug 20, 2022 09:15 AM VA-TOBACCO USER EVERY DAY [facility] Sep 12, 2021 09:15 AM VA-TOBACCO USE 30 YEARS OR MORE [facility] Sep 12, 2021 09:15 AM VA-TOBACCO USE ADVICE [facility] Sep 12, 2021 09:15 AM VA-TOBACCO USE ELECTRON BEAM WELDER NO [facility] Sep 12, 2021 09:15 AM VA-TOBACCO USE MED NO [facility] Sep 12, 2021 09:15 AM VA-TOBACCO USE WI 30 MIN OF WAKE UP [facility] Sep 12, 2021 09:15 AM VA-TOBACCO USER EVERY DAY [facility] Sep 01, 2020 01:30 PM VA-TOBACCO DOESNT USE WI 30 MIN WAKEUP [facility] Sep 01, 2020 01:30 PM VA-TOBACCO USE 30 YEARS OR MORE [facility] Sep 01, 2020 01:30 PM VA-TOBACCO USE ADVICE [facility] Sep 01, 2020 01:30 PM VA-TOBACCO USE ELECTRON BEAM WELDER NO [facility] Sep 01, 2020 01:30 PM VA-TOBACCO USE MED NO [facility] Sep 01, 2020 01:30 PM VA-TOBACCO USER EVERY DAY [facility] Sep 27, 2019 09:35 AM VA-TOBACCO USE 30 YEARS OR MORE [facility] Sep 27, 2019 09:35 AM VA-TOBACCO USE ADVICE [facility] Sep 27, 2019 09:35 AM VA-TOBACCO USE ELECTRON BEAM WELDER NO [facility] Sep 27, 2019 09:35 AM VA-TOBACCO USE MED NO [facility] Sep 27, 2019 09:35 AM VA-TOBACCO USE WI 30 MIN OF WAKE UP [facility] Sep 27, 2019 09:35 AM VA-TOBACCO USER EVERY DAY [facility] Mar 04, 2018 01:45 PM VA-TOBACCO USE 30 YEARS OR MORE [facility] Mar 04, 2018 01:45 PM VA-TOBACCO USE ADVICE [facility] Mar 04, 2018 01:45 PM VA-TOBACCO USE ELECTRON BEAM WELDER NO [facility] Mar 04, 2018 01:45 PM VA-TOBACCO USE MED NO [facility] Mar 04, 2018 01:45 PM VA-TOBACCO USE WI 30 MIN OF WAKE UP [facility] Mar 04, 2018 01:45 PM VA-TOBACCO USER EVERY DAY [facility] Apr 22, 2017 10:01 AM CURRENT TOBACCO USER [facility] Apr 16, 2016 09:52 AM CURRENT TOBACCO USER [facility] July 26, 2014 09:08 AM CURRENT TOBACCO USER [facility] Dec 31, 2013 10:06 AM CURRENT TOBACCO USER [facility] Sep 05, 2012 09:27 AM CURRENT TOBACCO USER [facility] Nov 25, 2011 09:12 AM CURRENT TOBACCO USER [facility] Feb 08, 2011 10:04 AM CURRENT TOBACCO USER [facility] May 01, 2010 10:24 AM CURRENT TOBACCO USER [facility] Jul 03, 2009 08:42 AM CURRENT TOBACCO USER [facility] Encounter Notes: All associated encounter notes This section contains the clinical notes associated to the Encounter. Date/Time Encounter Note(s) Provider Source May 15, 2023 01:03 PM TELEHEALTH NOTE: LOCAL TITLE: DIGITAL DIVIDE DEVICE FOLLOW UP STANDARD TITLE: TELEHEALTH NOTE DATE OF NOTE: MAY 15, 2023@13:03 ENTRY DATE: MAY 15, 2023@13:04:07 AUTHOR: LEYLA MANDUJANO EXP COSIGNER: URGENCY: STATUS: COMPLETED Digital Divide (DD) Device Follow-up Note Our records indicate the device has not been used. Per several requests, the has not returned the device. The device will be made inoperable. Ordering provider can stop deactivation by addending this note and completing the Info Only: [place] Video Connect Capable clinical reminder. /marli/ LEYLA MANDUJANO [employer] Signed: 05/15/2023 13:04 Receipt Acknowledged By: 05/15/2023 14:11 /marli/ KAREN DOVE MD PHYSICIAN, [facility] LEYLA MANDUJANO [facility]
--- OUTSIDE RECORDS SUMMARY | 2023-08-05 14:11 | XMS_ITS | Encounter Summary ---
Author Name [facility] Organization [facility] of [facility] Address [address] [place] [address] Support Name Relationship Address Phone ANTOINE SKELTON Next of Kin , RADHA [address] CARIE CHAVEZ Emergency Contact , [place] ANTOINE SKELTON Next of Kin , RADHA [address] KATHY CARIE Emergency Contact , [place] Insurance Providers: All historical and current Section [...] AID (WNR) Aug 08, 2013 MEDICAI D [id number] DERICK SKELTON PATIENT MEDICARE (WNR) MEDICARE (M) PART A Sep 07, 2016 PART A [id number] DERICK SKELTON PATIENT Selected Encounter This section includes the information on record at [place] for the Encounter. Date/Time Encounter Type Encounter Description Reason Provider Source May 22, 2023 11:27 AM Outpatient Encounter PRIMARY CARE/MEDICINE JOSE BULLOCK Encounter Template Text not used by [place] Plan of Treatment: Future Appointments (+ 6 months) and Future Tests (+/- 45 days) The Plan of Treatment section includes future care activities for the patient from all [place] treatmentfacilities. This section includes future appointments and future orders which are active, pending or scheduled. Future Appointments This section includes appointments that were scheduled to occur 6 months from the date of the Encounter, up to a maximum of 20 appointments. The data comes from all [place] treatment facilities. Appointment Date/Time Appointment Type Appointme nt Facility Name Jun 04, 2023 09:00 AM AMBULATORY - MEDICINE [facility] Jun 04, 2023 09:15 AM AMBULATORY - MEDICINE [facility] July 16, 2023 09:00 AM [facility] [place] [facility] Sep 23, 2023 08:15 AM [facility]ORY - NONE [facility] [facility] Sep 23, 2023 09:15 AM AMBULATORY - MEDICINE [facility] Active, Pending, and Scheduled Orders This section includes a listing of several types of active, pending, and scheduled orders, including clinic medications orders, diagnostic test orders, procedure orders and consult orders; where the start date of the order is 45 days before the date of the Encounter or 45 days after the date of theEncounter. The data comes from all [facility]. Test Date/Time Test Type Test Details Facility Name Apr 29, 2023 12:00 AM Laboratory - Chemi stry Order BASIC METABOLIC PANEL+MG PLASMA SP ONCE [facility] Apr 29, 2023 12:00 AM Laboratory - Chemi stry Order CBC BLOOD SP [facility] Jun 27, 2023 12:19 PM Consult Order COMMUNITY CARE-CHIROPRACTIC Cons Telecommunications Analyst's Choice [facility] Social History: Smoking Status (Most current) and Tobacco Use (All prior to encounter date) This section includes the most current, and the historical, smoking and tobacco- related health factors from the [place] facility where the Encounter took place. Current Smoking Status This section includes the most current smoking, or tobacco-related health factor, from the [place] facility where the Encounter took place. Date/Time Current Smoking Status Comment Facil ity Aug 20, 2022 09:15 AM VA-TOBACCO USER EVERY DAY [facility] Tobacco Use History This section includes a history of the smoking, or tobacco-related health factors, that were collected on or before the date of the Encounter. The data comes from the [place] facility where the Encounter took place. Date/Time Smoking Status/Tobacco Use Comment F acility Aug 20, 2022 09:15 AM VA-TOBACCO USE ADVICE [facility] Aug 20, 2022 09:15 AM VA-TOBACCO USE BEHAVIORAL HEALTH CARE COORDINATOR NO [facility] Aug 20, 2022 09:15 AM VA-TOBACCO USE MED NO [facility] Aug 20, 2022 09:15 AM VA-TOBACCO USE WI 30 MIN OF WAKE UP [facility] Aug 20, 2022 09:15 AM VA-TOBACCO USER EVERY DAY [facility] Sep 12, 2021 09:15 AM VA-TOBACCO USE 30 YEARS OR MORE [facility] Sep 12, 2021 09:15 AM VA-TOBACCO USE ADVICE [facility] Sep 12, 2021 09:15 AM VA-TOBACCO USE BEHAVIORAL HEALTH CARE COORDINATOR NO [facility] Sep 12, 2021 09:15 AM VA-TOBACCO USE MED NO [facility] Sep 12, 2021 09:15 AM VA-TOBACCO USE WI 30 MIN OF WAKE UP [facility] Sep 12, 2021 09:15 AM VA-TOBACCO USER EVERY DAY [facility] Sep 01, 2020 01:30 PM VA-TOBACCO DOESNT USE WI 30 MIN WAKEUP [facility] Sep 01, 2020 01:30 PM VA-TOBACCO USE 30 YEARS OR MORE [facility] Sep 01, 2020 01:30 PM VA-TOBACCO USE ADVICE [facility] Sep 01, 2020 01:30 PM VA-TOBACCO USE BEHAVIORAL HEALTH CARE COORDINATOR NO [facility] Sep 01, 2020 01:30 PM VA-TOBACCO USE MED NO [facility] Sep 01, 2020 01:30 PM VA-TOBACCO USER EVERY DAY [facility] Sep 27, 2019 09:35 AM VA-TOBACCO USE 30 YEARS OR MORE [facility] Sep 27, 2019 09:35 AM VA-TOBACCO USE ADVICE [facility] Sep 27, 2019 09:35 AM VA-TOBACCO USE BEHAVIORAL HEALTH CARE COORDINATOR NO [facility] Sep 27, 2019 09:35 AM VA-TOBACCO USE MED NO [facility] Sep 27, 2019 09:35 AM VA-TOBACCO USE WI 30 MIN OF WAKE UP [facility] Sep 27, 2019 09:35 AM VA-TOBACCO USER EVERY DAY [facility] Mar 04, 2018 01:45 PM VA-TOBACCO USE 30 YEARS OR MORE [facility] Mar 04, 2018 01:45 PM VA-TOBACCO USE ADVICE [facility] Mar 04, 2018 01:45 PM VA-TOBACCO USE BEHAVIORAL HEALTH CARE COORDINATOR NO [facility] Mar 04, 2018 01:45 PM VA-TOBACCO USE MED NO [facility] Mar 04, 2018 01:45 PM VA-TOBACCO USE WI 30 MIN OF WAKE UP [facility] Mar 04, 2018 01:45 PM VA-TOBACCO USER EVERY DAY [facility] Apr 22, 2017 10:01 AM CURRENT TOBACCO USER [facility] Apr 16, 2016 09:52 AM CURRENT TOBACCO USER [facility] July 26, 2014 09:08 AM CURRENT TOBACCO USER [facility] Dec 31, 2013 10:06 AM CURRENT TOBACCO USER [facility] Sep 05, 2012 09:27 AM CURRENT TOBACCO USER [facility] Nov 25, 2011 09:12 AM CURRENT TOBACCO USER [facility] Feb 08, 2011 10:04 AM CURRENT TOBACCO USER [facility] May 01, 2010 10:24 AM CURRENT TOBACCO USER [facility] Jul 03, 2009 08:42 AM CURRENT TOBACCO USER [facility] Encounter Notes: All associated encounter notes This section contains the clinical notes associated to the Encounter. Date/Time Encounter Note(s) Provider Source May 23, 2023 09:58 AM ADDENDUM: LOCAL TITLE: Addendum STANDARD TITLE: ADDENDUM DATE OF NOTE: MAY 23, 2023@09:58:33 ENTRY DATE: MAY 23, 2023@09:58:34 AUTHOR: KAREN DOVE EXP COSIGNER: URGENCY: STATUS: COMPLETED I do think we wanted updated labs -- CBC and iron panel. But he also needs the H&P for his GI procedure, so that should either happen with me or pre-op clinic depending on convenience for patient. /marli/ KAREN DOVE MD PHYSICIAN, [facility] Signed: 05/23/2023 10:01 Receipt Acknowledged By: 05/23/2023 13:30 /marli/ ELLEN RODRIGUEZ no --- Original Document --- 05/22/23 PRIMARY CARE SECURE MESSAGING: ------Original Message ---- Sent: 05/21/2023 05:18 PM ET From: FRANCES SKELTON To: [facility] Primary CarePaolo L. (Sherita) Subject: General:Labs Hi Dr. Dove, it looks like Jez [facility] I think the visit was to recheck labs. If you would like me to draw labs at home please the please fax an order to [phone]. Tang [phone] (trim stencil maker) ------Original Message ---- Sent: 05/22/2023 12:27 PM ET From: JOSE BULLOCK To: FRANCES SKELTON Subject: General:Labs It was an appointment with Dr. Dove to obtain an updated H & P prior to your GI procedure appointment 06/04/23 at 0915. It says you are having the procedure with anesthesia. Millicent Bullock RN [address] [place] [address] Primary Care /marli/ JOSE BULLOCK RN REGISTERED NURSE Signed: 05/22/2023 11:27 Receipt Acknowledged By: 05/23/2023 09:58 /marli/ KAREN DOVE MD PHYSICIAN, [facility] KAREN DOVE [facility] May 22, 2023 11:27 AM PRIMARY CARE RAYNE French MESSAGING: LOCAL TITLE: PRIMARY CARE SECURE MESSAGING STANDARD TITLE: PRIMARY CARE SECURE MESSAGING DATE OF NOTE: MAY 22, 2023@11:27 ENTRY DATE: MAY 22, 2023@11:27:26 AUTHOR: JOSE BULLOCK EXP COSIGNER: URGENCY: STATUS: COMPLETED PRIMARY CARE SECURE MESSAGING Has ADDENDA ------Original Message ---- Sent: 05/21/2023 05:18 PM ET From: FRANCES SKELTON To: [facility] Primary CarePaolo L. (Sherita) Subject: General:Labs Hi Dr. Dove, it looks like Jez wasn't able to get a ride [place] to the [place] 05[place]26. I think the visit was to recheck labs. If you would like me to draw labs at home please the please fax an order to [phone]. Tang [phone] (trim stencil maker) ------Original Message ---- Sent: 05/22/2023 12:27 PM ET From: JOSE BULLOCK To: FRANCES SKELTON Subject: General:Labs It was an appointment with Dr. Dove to obtain an updated H & P prior to your GI procedure appointment 06/04/23 at 0915. It says you are having the procedure with anesthesia. Millicent Bullock RN [address] [place] [address] Primary Care /marli/ JOSE BULLOCK RN REGISTERED NURSE Signed: 05/22/2023 11:27 Receipt Acknowledged By: 05/23/2023 09:58 /marli/ KAREN DOVE MD PHYSICIAN, [facility] 05/23/2023 ADDENDUM STATUS: COMPLETED I do think we wanted updated labs -- CBC and iron panel. But he also needs the H&P for his GI procedure, so that should either happen with me or pre-op clinic depending on convenience for patient. /marli/ KAREN DOVE MD PHYSICIAN, [facility] Signed: 05/23/2023 10:01 Receipt Acknowledged By: * AWAITING SIGNATURE * ELLEN RODRIGUEZ CHRISTINE E [facility]
--- OUTSIDE RECORDS SUMMARY | 2023-08-05 14:11 | XMS_ITS | Clinical Summary ---
Author Organization [facility] Address [place], [place] [address] Care Team Providers Care Collection Specialist Name Role Phone Unavailable Primary Care Provider Unavailabl e Allergies No known active allergies Medications Medication Sig Dispensed Refills Start Date End Date Status budesonide (PULMICORT) 180 mcg/actuation inhaler Inhale 180 mcg by mouth 2 times daily. 1 Inhaler 12/24/2017 Active Ferrous Gluconate 324 mg (38 mg iron) tablet Take one tablet by mouth every other day. 0 12/24/2017 Active traZODone (DESYREL) 50 mg tablet Take 3 tablets by mouth at bedtime. 0 12/24/2017 Active atorvastatin (LIPITOR) 20 mg tablet Take 0.5 tablets by mouth once daily. 0 12/24/2017 Active multivitamin (MULTIPLE VITAMINS) tablet Take 1 tablet by mouth once daily. 0 12/24/2017 Active albuterol (PROAIR RESPICLICK) 90 mcg/actuation INHALER Inhale 2 Puffs by mouth every 4 hours. As needed. 0 12/24/2017 Active sildenafil citrate (VIAGRA) 100 mg tablet Take 1 tablet by mouth once daily if needed for Erectile Dysfunction. Take 30min to 4 hours before sexual activity. Max 100mg/24hr. 0 12/24/2017 Active buPROPion (WELLBUTRIN SR) 100 mg Sustained-Release tablet Take 2 tablets by mouth 2 times daily. 0 12/24/2017 Active busPIRone (BUSPAR) 10 mg tablet Take 2 tablets by mouth 3 times daily. 0 12/24/2017 Active acyclovir (ZOVIRAX) 200 mg capsule Take 2 capsules by mouth 5 times daily. 100 capsule 12/24/2017 Active acetaminophen (TYLENOL) 500 mg capsule Take 2 capsules by mouth every 8 hours if needed. Max acetaminophen dose: 4000mg in 24 hrs. 0 12/24/2017 Active omeprazole (PRILOSEC) 20 mg Delayed-Release capsule Take 2 capsules by mouth 2 times daily before meals. 0 12/24/2017 Active Active Problems Problem Noted Date Diagnosed Date Edema of penis and urethritis 09/15/2012 COPD (chronic obstructive pulmonary disease) 10/2012 Overview: On Albuterol and Symbicort outpatient UTI (lower urinary tract infection) 09/14/2012 ACP (advance care planning) 09/14/2012 Overview: Full Code, to medical proxy. PTSD (post-traumatic stress disorder) 09/13/2012 H/O radical prostatectomy 09/13/2012 Overview: 09/01/2012 [facility] Adrenal adenoma 09/03/2011 Low back pain 09/03/2011 Overview: Takes Ibuprofen as needed Neuropathy 09/03/2011 Overview: Uses gabapentin (1600mg four times daily) outpatient. Depression, major Overview: On Effexor outpatient H/O prostate cancer Overview: managed through [facility] Resolved Problems Problem Noted Date Diagnosed Date Resolved Date Cellulitis of Penis and Scotum 09/14/2012 09/15/2012 Prostate cancer 08/19/2012 05/15/2014 Overview: Treatment through [place] Tobacco abuse 09/03/2011 09/14/2012 Immunizations Name Administration Dates Next Due Tdap 07/03/2011 Zoster (Zostavax-ZVL, live) 11/19/2011 Family History Medical History Relation Name Comments Alcohol/Drug Brother Ramon Other Father accidently age 32 Alcohol/Drug Mother Cancer Mother throat cancer Psychiatric illness Sister Radha is obese too Relation Name Status Comments Brother Ramon Father Mother Sister Radha Social History Tobacco Use Types Packs/Day Years Used Date Smoking Tobacco: Every Day Cigarettes 1 40 Smokeless Tobacco: Never Tobacco Cessation:Ready to Q uit: No; Counseling Given: Yes Comments:used to smoke 2.5 packs daily Alcohol Use Standard Drinks/Week Comments Yes 15 (1 standard drink = 0.6 oz pu re alcohol) Social Connections Answer Date Recorded Frequency of Communication with Friends and Fami ly Not on file 03/10/2021 Financial Resource Strain Answer Date R ecorded Difficulty of Paying Living Expenses Not on file 03/10/2021 Difficulty of Paying Living Expenses Not on file 03/10/2021 Sex and Gender Information Value Date Recorded Sex Assigned at Not on file Gender Identity Not on file Sexual Orientation Not on file Obstetrics History Last Filed Vital Signs Vital Sign Reading Time Taken Comments Blood Pressure 126/72 12/24/2017 10:01 AM CDT to wer Pulse 85 12/24/2017 10:01 AM CDT Temperature 36.9 ??C (98.4 ??F) 07/05/2016 9:48 AM CD T Respiratory Rate 18 09/15/2012 8:00 AM CDT Oxygen Saturation 99% 12/24/2017 10:01 AM CDT Inhaled Oxygen Concentration - - Weight 70.8 kg (156 lb) 12/24/2017 10:01 AM CDT Height 182.9 cm (6') 07/05/2016 9:48 AM CDT Body Mass Index 21.16 07/05/2016 9:48 AM CDT Plan of Treatment Health Maintenance Due Date Last Done Comments Hepatitis C screening for age 18-79 09/21/1969 Zoster (shingles) series for age 50+ (2 of 3) 01/14/2012 11/19/2011 Depression screening for age 12+ 07/10/2016 07/11/19 16 Pneumococcal series for age 65+ (1 of 1 - PCV) 09/21/2016 BMI (ht and wt on same day) for age 18+ 07/05/2017 0 07/05/2016 Lipids for age 45-75 07/13/2018 07/13/2013, 03/10/19 11 Colonoscopy through age 75 03/10/2020 03/10/2010 Tetanus booster 07/02/2021 07/03/2011 COVID-19 vaccine series ( - 2022- season) 2022 Influenza for age 65+ 11/09/2023 Tdap Completed 07/03/2011 Procedures Procedure Name Priority Date/Time Associated Diagnosis Comments LIPID PANEL Routine 07/13/2013 9:56 AM CDT Routine general medical examination at a health care facility from Last 3 Months or Most Recently Relevant to Health Maintenance Results * LIPID PANEL (07/13/2013 9:56 AM CDT) CHOLESTEROL,TOTAL 198 100 - 199 mg/dL 07/13/2013 8:51 PM CDT [facility] TRIGLYCERIDES 117 <150 mg/dL 07/13/2013 8:51 PM CDT [facility] HDL CHOLESTEROL 55 >40 mg/dL 8:51 PM CDT [facility] NON-HDL CHOLESTEROL 143 <145 mg/dl 07/13/2013 8:51 PM CDT [facility] CHOL/HDL RATIO 3.60 <4.50 07/13/2013 8:51 PM CDT [facility] LDL CHOLESTEROL 120 <=130 mg/dL 07/13/2013 8:51 PM CDT [facility] PATIENT STATUS NOT GIVEN 07/13/2013 8:51 PM CDT [facility] Blood specimen (specimen) BLOOD SPECIMEN / Unknown Venipuncture / Unknown 07/13/2013 9:56 AM CDT 07/13/2013 9:56 AM CDT Odin Whitten MD [facility] [address] [place] [address], [place] from Last 3 Months or Most Recently Relevant to Health Maintenance Advance Directives * Full Code (Latest Code Status on File) Date Activated Date Inactivated Comments 09/14/2012 1:22 AM 09/15/2012 5:58 PM
--- OUTSIDE RECORDS SUMMARY | 2023-08-05 14:11 | XMS_ITS | Encounter Summary ---
Author Name Department of [facility] Organization Department of [facility] Address [address] [place] [address] Support Name Relationship Address Phone ANTOINE SKELTNO Next of Kin , RADHA [address] [address] Emergency Contact , [place] [phone] ANTOINE SKELTON Next of Kin , RADHA [address] [address]IE Emergency Contact , [place] Insurance Providers: All historical and current Section [...] AID (WNR) Aug 08, 2013 MEDICAI D [id number] [phone] DERICK SKELTON PATIENT MEDICARE (WNR) MEDICARE (M) PART A Sep 07, 2016 PART A [id number] [phone] DERICK SKELTON PATIENT Selected Encounter This section includes the information on record at [place] for the Encounter. Date/Time Encounter Type Encounter Description Reason Pro vider Source May 23, 2023 01:36 PM Outpatient Encounter PRIMARY CARE/MEDICINE IHE Encounter Template Text not used by [place] Plan of Treatment: Future Appointments (+ 6 months) and Future Tests (+/- 45 days) The Plan of Treatment section includes future care activities for the patient from all [place] treatmentfacilities. This section includes future appointments and future orders which are active, pending or scheduled. Future Appointments This section includes appointments that were scheduled to occur 6 months from the date of the Encounter, up to a maximum of 20 appointments. The data comes from all [place] treatment facilities. Appointment Date/Time Appointment Type Appointme nt Facility Name Jun 04, 2023 09:00 AM [facility] Jun 04, 2023 09:15 AM [facility] July 16, 2023 09:00 AM [facility] Sep 23, 2023 08:15 AM [facility] - [facility]ONE [facility] Sep 23, 2023 09:15 AM AMBULATORY - MEDICINE [facility] Active, Pending, and Scheduled Orders This section includes a listing of several types of active, pending, and scheduled orders, including clinic medications orders, diagnostic test orders, procedure orders and consult orders; where the start date of the order is 45 days before the date of the Encounter or 45 days after the date of theEncounter. The data comes from all [facility] facilities. Test Date/Time Test Type Test Details Facility Name Apr 29, 2023 12:00 AM Laboratory - Chemi stry Order BASIC METABOLIC PANEL+MG PLASMA SP ONCE [facility] Apr 29, 2023 12:00 AM Laboratory - Chemi stry Order CBC BLOOD SP [facility] Jun 27, 2023 12:19 PM Consult Order COMMUNITY CARE-CHIROPRACTIC Cons Code Machine Operator's Choice [facility] Social History: Smoking Status (Most current) and Tobacco Use (All prior to encounter date) This section includes the most current, and the historical, smoking and tobacco- related health factors from the [place] facility where the Encounter took place. Current Smoking Status This section includes the most current smoking, or tobacco-related health factor, from the [place] facility where the Encounter took place. Date/Time Current Smoking Status Comment Silvia ity Aug 20, 2022 09:15 AM VA-TOBACCO USER EVERY DAY [facility] Tobacco Use History This section includes a history of the smoking, or tobacco-related health factors, that were collected on or before the date of the Encounter. The data comes from the [place] facility where the Encounter took place. 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 USE FIRST HELPER NO [facility] Aug 20, 2022 09:15 [...] Sep 12, 2021 09:15 AM VA-TOBACCO USE FIRST HELPER NO [facility] Sep 12, 2021 09:15 [...] Sep 01, 2020 01:30 PM VA-TOBACCO USE FIRST HELPER NO [facility] Sep 01, 2020 01:30 PM VA-TOBACCO USE MED NO [facility] Sep 01, 2020 01:30 PM VA-TOBACCO USER EVERY DAY [facility] Sep 27, 2019 09:35 AM VA-TOBACCO USE 30 YEARS OR MORE [facility] Sep 27, 2019 09:35 AM VA-TOBACCO USE ADVICE [facility] Sep 27, 2019 09:35 AM VA-TOBACCO USE FIRST HELPER NO [facility] Sep 27, 2019 09:35 [...] Mar 04, 2018 01:45 PM VA-TOBACCO USE FIRST HELPER NO [facility] Mar 04, 2018 01:45 [...] 08:42 AM CURRENT TOBACCO USER [facility] Encounter Notes: All associated encounter notes This section contains the clinical notes associated to the Encounter. Date/Time Encounter Note(s) Provider Source May 23, 2023 01:36 PM REPORT OF CONTACT: LOCAL TITLE: APPOINTMENT SCHEDULING NOTE STANDARD TITLE: REPORT OF CONTACT DATE OF NOTE: MAY 23, 2023@13:36 ENTRY DATE: MAY 23, 2023@13:36:47 AUTHOR: ELLEN RODRIGUEZ EXP COSIGNER: URGENCY: STATUS: COMPLETED Attempted to schedule Return to clinic (RTC) Contact attempt made to [place] 1st attempt Letter - Sent letter by regular [place] mail to address on file: FR[place]ES SKELTON [address], [place] [address] 2nd attempt Telephone Disposition order request after May /marli/ ELLEN RODRIGUEZ no Signed: 05/23/2023 13:52 ELLEN RODRIGUEZ [facility]
[2023-08-05 14:42] LABS: Basophils Absolute Auto 0.03 K/uL (0.00-0.30); Basophils Percent Auto 0.5 % (0.0-3.0); Eosinophils Absolute Auto 0.03 K/uL (0.00-0.50); Eosinophils Percent Auto 0.5 % (0.0-7.0); Hematocrit 33.8 % (37.0-53.0); Hemoglobin* 11.1 gm/dL (13.5-17.5); Immature Granulocytes Abs Auto 0.08 K/uL (0.00-0.30); Immature Granulocytes Pct Auto 1.2 %; Lymphocytes Percent Auto 14.6 % (20-44); Mean Corpuscular HGB Conc 33 gm/dL (32-36); Mean Corpuscular Hemoglobin 31 pg (26-34); Mean Corpuscular Volume 94 fL (80-100); Monocytes Percent Auto 6.9 % (0.0-11.0); Neutrophils Percent Auto 76.3 % (42.0-72.0); Platelet Count* 270 K/uL (140-440); RDW Coefficient of Variation % 16.9 % (11.5-15.5); Red Blood Count 3.59 m/uL (4.30-5.90); White Blood Count* 6.64 K/uL (4.50-11.00)
[2023-08-05 14:52] LABS: Albumin* 3.6 g/dL (3.3-5.0); Chloride* 97 mmol/L (96-114)
[2023-08-05 14:53] LABS: Sodium* 133 mmol/L (135-149)
[2023-08-05 14:55] LABS: Creatinine* 1.2 mg/dL (0.5-1.5); Est. Creatinine Clearance* 50.71; Estimated Glomerular Filt Rate 65 ml/min; INR 0.87 (0.91-1.10); Prothrombin Time 12.4 Seconds
[2023-08-05 14:56] LABS: Alanine Aminotransferase* 12 U/L (4-50); Alkaline Phosphatase* 120 U/L (40-150); Anion Gap 4 mEq/L (7-15); Aspartate Amino Transferase* 30 U/L (12-35); Bilirubin Direct* 0.5 mg/dL (0.0-0.5); Bilirubin Total* 0.9 mg/dL (0.1-1.5); Blood Urea Nitrogen* 11 mg/dL (7-30); Calcium* 8.2 mg/dL (8.4-10.6); Carbon Dioxide* 32 mmol/L (20-32); Glucose* 83 mg/dL (60-115); Partial Thromboplastin Time* 26 Seconds (23-33); Total Protein* 6.8 g/dL (6.0-8.3)
[2023-08-05 15:00] LABS: C Reactive Protein* < 0.5 mg/dL (0.5-1.0); Potassium* 2.9 mmol/L (3.6-5.1)
[2023-08-05 15:05] LABS: Slide Review Reflex No
[2023-08-05 15:12] LABS: Procalcitonin* 0.16 ng/mL (<0.50)
[2023-08-05] MEDS: 0.9 % SODIUM CHLORIDE 500 ML 500 ML IV (15:12)
[2023-08-05] MEDS: METOCLOPRAMIDE HCL 10 MG in 0.9 % SODIUM CHLORIDE 100 ml 100 ML 306 MG IVPB (15:13)
[2023-08-05] MEDS: diphenhydrAMINE 50 MG/ML inj 25 MG IVP (15:16)
[2023-08-05 15:27] LABS: Ethanol* < 0.01 % (0.01-0.03)
[2023-08-05] MEDS: POTASSIUM CHLORIDE 10 MEQ/100 ML PIGGYBACK 100 MEQ IVPB ×5 (15:38→22:35)
[2023-08-05 15:45] LABS: Erythrocyte SedimentationRate* 12 mm/hr (2-15)
[2023-08-05 15:50] LABS: Appearance Urine Cloudy (Clear); Bilirubin Urine Negative (Negative); Blood Urine Negative (Negative); Color Urine Yellow (Yellow); Glucose Urine Negative (Negative); Ketones Urine Trace (Negative); Leukocyte Esterase Urine Negative (Negative); Nitrite Urine Positive (Negative); Protein Urine Trace (Negative); Specific Gravity Urine 1.015 (1.000-1.030); Urobilinogen Urine 0.2 (0.2-1.0)
[2023-08-05] MEDS: LABETALOL HCL 5 MG/ML inj IVP ×2 (16:01→16:38)
[2023-08-05 16:08] LABS: Cannabinoid Screen Urine POSITIVE (Negative); Cocaine Screen Urine POSITIVE (Negative)
[2023-08-05 16:09] LABS: Amphetamine Screen Urine POSITIVE (Negative); Barbiturate Screen Urine Negative (Negative); Benzodiazepines Screen Urine Negative (Negative); Methadone Screen Urine Negative (Negative); Methamphetamines Screen Urine POSITIVE (Negative); Opiate Screen Urine POSITIVE (Negative); Oxycodone Screen Urine Negative (Negative); Phencyclidine Screen Urine Negative (Negative); Tricyclic Antidepressant Urine Negative (Negative)
[2023-08-05 16:15] LABS: RBC Urine 0-2 (0-2); WBC Urine 0-2 (0-5)
[2023-08-05 16:16] LABS: Bacteria Urine Many
[2023-08-05] MEDS: cefTRIAXone 2 GM in 0.9 % SODIUM CHLORIDE Mini-bag 100 ML IVPB (17:25)
--- NOTE | 2023-08-05 19:27 | PM.IMHP1 ---
Hospitalist- H&P: HPI History of Present Illness Time Seen by Provider: 18:15 Date Seen: 08/05/23 Chief complaint: Hypotension Narrative: Robbie Gage is a 72 year old male with h/o alcohol use, unsteady gait, peripheral neuropathy, COPD, depression, PTSD, prostate cancer, and GERD who lives with his sister, Elin, who is here with him today, and presented for concerns of headache. His other sister, Sanam, is also with him today. They all helped to give history. They tell me that he started having daily headaches about 3 weeks ago. He wakes up with the headaches each morning, he takes Tylenol throughout the day and by early afternoon they start to get better and are gone by the end of the day. They are bitemporal headaches and he notices nausea and blurry vision with the headaches. He denies any blurry vision today however. Today he vomited with the headache, but says that that is the 1st time he has done that. Both he and his sisters tell me that the headaches began while before he used cocaine and meth recently. He drinks 5-6 beers a day and uses meth and cocaine once every 2-3 months. He tells me that he last used these last week. His last alcoholic drink was yesterday. He denies chest pain or shortness of breath. He reports recent shingles on his lower back that have since gone away. They also tell me that he had melena about 2-3 months ago for which he had a workup [facility] which included an EGD. He did not have a colonoscopy, and is last colonoscopy was around 2010. Review of Systems Status of ROS: Reports: 10 or more systems reviewed and unremarkable except as noted in History and below [facility] Medical History (Updated 08/05/23 @ 23:28 by Franchesca Vargas MD) Unsteady gait ?R26.81 - Unsteadiness on feet (ICD-10) History of melena ?Z87.19 - Personal history of other diseases of the digestive system (ICD-10) Angiodysplasia of stomach and duodenum ?K31.819 - Angiodysplasia of stomach and duodenum without bleeding (ICD-10) Dysphagia ?R13.10 - Dysphagia, unspecified (ICD-10) Peripheral neuropathy (09/06/11) ?G62.9 - Polyneuropathy, unspecified (ICD-10) Gastroesophageal reflux (09/06/11) ?K21.9 - Gastro-esophageal reflux disease without esophagitis (ICD-10) Depression (09/06/11) ?F32.A - Depression, unspecified (ICD-10) Benign localized hyperplasia of prostate with urinary obstruction (09/06/11) ?N40.1 - Benign prostatic hyperplasia with lower urinary tract symptoms (ICD-10) ?N13.8 - Other obstructive and reflux uropathy (ICD-10) Ankle fracture (09/06/11) ?S82.899A - Other fracture of unspecified lower leg, initial encounter for closed fracture (ICD-10) Alcohol use disorder ?F10.90 - Alcohol use, unspecified, uncomplicated (ICD-10) Prostate cancer ?C61 - Malignant neoplasm of prostate (ICD-10) Cellulitis of penis (~2012) ?N48.22 - Cellulitis of corpus cavernosum and penis (ICD-10) COPD (chronic obstructive pulmonary disease) ?J44.9 - Chronic obstructive pulmonary disease, unspecified (ICD-10) PTSD (post-traumatic stress disorder) ?F43.10 - Post-traumatic stress disorder, unspecified (ICD-10) Low back pain ?M54.50 - Low back pain, unspecified (ICD-10) Adrenal adenoma ?D35.00 - Benign neoplasm of unspecified adrenal gland (ICD-10) Major depression ?F32.9 - Major depressive disorder, single episode, unspecified (ICD-10) Neuropathy ?G62.9 - Polyneuropathy, unspecified (ICD-10) Surgical History Hx of tonsillectomy ?Z90.89 - Acquired absence of other organs (ICD-10) Status post osteotomy (~1979) ?Z98.890 - Other specified postprocedural states (ICD-10) Hx of colonoscopy (~2010) ?Z98.890 - Other specified postprocedural states (ICD-10) History of ankle surgery (~09/04/11) ?Z98.890 - Other specified postprocedural states (ICD-10) H/O radical prostatectomy ?Z90.79 - Acquired absence of other genital organ(s) (ICD-10) Family History Brother Alcoholism and drug addiction in family Mother Alcoholism and drug addiction in family Throat cancer Sister Obesity Social History (Updated 08/05/23 @ 19:38 by Franchesca Vargas MD) Narrative: Lives with younger sister, Elin, in a house. Smokes half a pack of cigarettes per day. Drinks 5-6 twelve-ounce beers per day. Last drank alcohol yesterday. Smokes marijuana 2-3 times a day. Does meth and cocaine every 2-3 months, is adamant that he last did it a week ago and that he does not use opioids. Discussed code status: patient and his sisters agree that he does not want to be intubated, does want resuscitation. What is your current living situation?: I presently have a place to live Problems where you live: no known problems Problems where you live details: na In the past 12 months, utilities in danger of being shut off: no In past 12 months, lack of transportation kept you from medical appts, meetings, work, or getting things needed for daily living: no In the past 12 mos, have been you worried that your food would run out before you had money to buy more?: never true In the past 12 mos, the food you bought just didn't last and you didn't have money to buy more?: never true Highest level of school completed/degree received: high school graduate Smoking Status: Current every day smoker What tobacco products do you use: cigarettes Do you use any of these nicotine containing products: None Second hand tobacco smoke exposure: No How often do you have a drink containing alcohol: 4 or more times a week How many standard drinks containing alcohol do you have on a typical day: 7 to 9 How often do you have six or more drinks on one occasion: Daily or almost daily AUDIT-C Alcohol total score: 11 Non-prescribed substance use: marijuana (any form) Non-prescribed substance use details: Use very seldom Caffeine: No How often does anyone, including family, friends and others, physically hurt you: never How often does anyone, including family, friends and others, insult or talk down to you: never How often does anyone, including family, friends and others, threaten you with harm: never How often does anyone, including family, friends and others, scream or curse at you: never service: Yes Meds Home Medications and Allergies Home Medications ?Medication ?Instructions ?Recorded ?Confirmed ?Type atenolol 50 mg tablet 25 mg PO DAILY 06/24/22 08/05/23 History cholecalciferol (vitamin D3) 25 25 mcg PO HS 06/24/22 08/05/23 History mcg (1,000 unit) capsule duloxetine 60 mg capsule,delayed 60 mg PO DAILY 06/24/22 08/05/23 History release folic acid 1 mg tablet 1 mg PO DAILY 06/24/22 08/05/23 History olanzapine 2.5 mg tablet 2.5 mg PO QHS 06/24/22 08/05/23 History omeprazole 20 mg capsule,delayed 40 mg PO BID 06/24/22 08/05/23 History release trazodone 50 mg tablet 150 mg PO QHS 06/24/22 08/05/23 History albuterol 90 mcg/actuation aerosol 2 spray inhalation PRN 08/21/22 12/16/22 History inhaler bupropion HCl 100 mg tablet,12 hr mg PO BID 08/21/22 12/16/22 History sustained-release Home Medication Comments: [facility] cannot [facility] up on his [facility]. His sister says she gave the list to the quality engineering manager, but we called the ER and they don't have it. She is going to call with his medications when she gets home. Allergies Allergy/AdvReac Type Severity Reaction Status Date / Time No Known Drug Allergies Allergy Verified 08/05/23 13:05 Exam Narrative: Exam Narrative: General: No acute distress. Awake alert oriented x3. Thin, generalized muscle wasting. Laying in bed. No tremor or asterixis. HEENT: Normocephalic atraumatic, pupils equally round and reactive to light and accommodation. Nontender to palpation over the temporal arteries bilaterally. Oropharynx clear, upper and lower plates. Mucous membranes are moist. No cervical lymphadenopathy, thyromegaly or carotid bruits. No JVD. Cardiovascular: Regular rate and rhythm. Grade 3/6 harsh systolic murmur loudest at the right upper sternal border. Chest: No increased work of breathing. Clear to auscultation bilaterally. No crackles or wheezes. Abdomen: Bowel sounds present. Soft, nondistended, nontender. No hepatosplenomegaly or masses. Genitourinary: What depends, normal circumcised external male genitalia. Extremities: No edema, no cyanosis or clubbing. Skin: No jaundice, no pallor, no rashes. Neuro: There are no focal deficits. Romberg is negative. Cranial nerves 2-12 are intact. Extraocular movements are full. No nystagmus. No facial asymmetry. Tongue is midline. Peripheral vision and vision are grossly intact. Strength is 5/5 in all 4 extremities. Light touch sensation is intact in face body and extremities. Const: Vital Signs, click to edit/add: Vital Signs - 24 hr 08/05/23 13:06 08/05/23 13:10 08/05/23 13:30 Temperature 98.7 F Pulse Rate 74 76 Pulse Rate [Pulse Oximeter] 71 Pulse Rate [Right Radial] Respiratory Rate 18 Blood Pressure Blood Pressure [Ri ght Arm] Blood Pressure [Ri ght Upper Arm] 173/83 H Pulse Oximetry 99 98 [facility] 08/05/23 13:32 08/05/23 14:00 08/05/23 14:02 Temperature Pulse Rate 76 79 81 Pulse Rate [Pulse Oximeter] Pulse Rate [Right Radial] Respiratory Rate Blood Pressure 149/86 H 191/91 H Blood Pressure [Ri ght Arm] Blood Pressure [Ri ght Upper Arm] Pulse Oximetry 100 100 100 [facility] 08/05/23 14:03 08/05/23 14:13 08/05/23 14:34 Temperature Pulse Rate 78 83 Pulse Rate [Pulse Oximeter] Pulse Rate [Right Radial] Respiratory Rate Blood Pressure Blood Pressure [Ri ght Arm] Blood Pressure [Ri ght Upper Arm] Pulse Oximetry 100 99 97 [facility] 08/05/23 14:35 08/05/23 15:01 08/05/23 15:15 Temperature Pulse Rate 74 85 Pulse Rate [Pulse Oximeter] Pulse Rate [Right Radial] Respiratory Rate Blood Pressure 191/95 H 183/93 H Blood Pressure [Ri ght Arm] Blood Pressure [Ri ght Upper Arm] Pulse Oximetry 99 97 [facility] 08/05/23 15:30 08/05/23 15:32 08/05/23 16:00 Temperature Pulse Rate 82 84 80 Pulse Rate [Pulse Oximeter] Pulse Rate [Right Radial] Respiratory Rate Blood Pressure 207/99 H Blood Pressure [Ri ght Arm] Blood Pressure [Ri ght Upper Arm] Pulse Oximetry 98 98 94 Oxygen Delivery Me thod 08/05/23 16:02 08/05/23 16:07 08/05/23 16:12 Temperature Pulse Rate 100 74 73 Pulse Rate [Pulse Oximeter] Pulse Rate [Right Radial] Respiratory Rate Blood Pressure 236/113 H 208/103 H 205/99 H Blood Pressure [Ri ght Arm] Blood Pressure [Ri ght Upper Arm] Pulse Oximetry 96 92 93 Oxygen Delivery Me thod 08/05/23 16:13 08/05/23 16:30 08/05/23 16:32 Temperature Pulse Rate 69 71 71 Pulse Rate [Pulse Oximeter] Pulse Rate [Right Radial] Respiratory Rate Blood Pressure 190/90 H Blood Pressure [Ri ght Arm] Blood Pressure [Ri ght Upper Arm] Pulse Oximetry 97 93 93 [facility] 08/05/23 16:41 08/05/23 16:44 08/05/23 16:45 Temperature Pulse Rate 70 67 68 Pulse Rate [Pulse Oximeter] Pulse Rate [Right Radial] Respiratory Rate Blood Pressure 190/86 H 170/82 H Blood Pressure [Ri ght Arm] Blood Pressure [Ri ght Upper Arm] Pulse Oximetry 92 92 91 Oxygen Delivery Me thod 08/05/23 17:00 08/05/23 17:01 08/05/23 17:30 Temperature Pulse Rate 64 64 67 Pulse Rate [Pulse Oximeter] Pulse Rate [Right Radial] Respiratory Rate Blood Pressure 171/85 H Blood Pressure [Ri ght Arm] Blood Pressure [Ri ght Upper Arm] Pulse Oximetry 95 96 95 Oxygen Delivery Fl thod 08/05/23 17:31 08/05/23 17:53 08/05/23 18:11 Temperature 97.0 F L Pulse Rate 65 Pulse Rate [Pulse Oximeter] Pulse Rate [Right Radial] 65 Respiratory Rate 16 16 Blood Pressure 194/90 H Blood Pressure [Ri ght Arm] 189/86 H Blood Pressure [Ri ght Upper Arm] Pulse Oximetry 95 94 94 Oxygen Delivery Me od Room Air Room Air 08/05/23 18:52 Temperature Pulse Rate 69 Pulse Rate [Pulse Oximeter] Pulse Rate [Right Radial] Respiratory Rate Blood Pressure Blood Pressure [Ri ght Arm] Blood Pressure [Ri ght Upper Arm] Pulse Oximetry Oxygen Delivery Fl thod Hospitalist - H&P: Result Labs Labs: Short CBC 08/05/23 Range/Units 14:00 WBC 6.64 (4.50-11.00) K/uL Hgb 11.1 L (13.5-17.5) gm/dL Hct 33.8 L (37.0-53.0) % Plt Count 270 (140-440) K/uL BMP 08/05/23 14:00 Sodium 133 L Potassium 2.9 L* Chloride 97 Carbon Dioxide 32 BUN 11 Creatinine 1.2 Glucose 83 Calcium 8.2 L Liver Function 08/05/23 Range/Units 14:00 Total Bilirubin 0.9 (0.1-1.5) mg/dL Direct Bilirubin 0.5 (0.0-0.5) mg/dL AST 30 (12-35) U/L ALT 12 (4-50) U/L Alkaline Phosphatase 120 (40-150) U/L Albumin 3.6 (3.3-5.0) g/dL Urine 08/05/23 Range/Units 15:43 Urine Color Yellow (Yellow) Urine Appearance Cloudy A (Clear) Urine pH 7.0 (5.0-8.5) Ur Specific [place] 1.015 (1.000-1.030) Urine Protein Trace A (Negative) Urine Glucose (UA) Negative (Negative) 08/05/2023 EKG: Normal sinus rhythm, 74 beats per minute, septal infarct, age undetermined. Procedure(s): CT head/brain wo [facility] Accession Number(s): [id number] cc: Provider,Not a Local; Kelle Kirkpatrick M.D.~ For Patients: As a result of the Century Cures Act, medical imaging exams and procedure reports are released immediately into your electronic medical record. You may view this report before your referring provider. If you have questions, please contact your health care provider. INDICATION: Severe headache, nausea, history of prostate cancer COMPARISON: None. TECHNIQUE: CT of the head without contrast. Multiplanar reformats are included. FINDINGS: No intracranial hemorrhage. Age-related parenchymal volume loss. No acute or subacute cortically based infarct. Normal appearance of the white matter. No mass or mass effect. Normal ventricles. No skull fractures. No worrisome focal bone lesion. IMPRESSION: No acute intracranial findings. Please note that all CT scans at this facility use dose modulation, iterative reconstruction, and/or weight-based dosing when appropriate to reduce radiation dose to as low as reasonably achievable. Dictated by Lissette Vivas MD @ 08/05/2023 2:51:14 PM (Electronically Signed) Assessment and Plan Assessment and plan (1) Hypertensive urgency: Problem comment: - Markedly hypertensive, which I suspect is due to cocaine use. He received labetalol, a total of 10 mg, Benadryl, Zofran, Reglan, and morphine in the ER today with good effect. Blood pressure and headache are improving. It is unclear if the headache is directly related to hypertension as he has had daily headaches for several weeks and this headache is not much different. - continue his usual home meds, which include atenolol, and monitor. Status: Acute (2) Daily headache: Problem comment: - CT head unremarkable. - unclear if this is related to hypertension or not. This may be secondary to alcohol use, illicit drug use, daily use of Tylenol, or other. Currently his vision is unaffected. He may need further outpatient workup, possibly with more imaging or referral to Neurology. Status: Acute (3) Nausea & vomiting: Problem comment: Associated with headache. Status: Acute (4) Abnormal urinalysis: Problem comment: He is not having any urinary symptoms so I think this is likely asymptomatic bacteriuria rather than a urinary tract infection. Will hold off on further antibiotics. Monitor for symptoms. Status: Acute (5) Illicit drug use: Problem comment: - 08/04 Utox positve for opiates, amphetamines, methamphetamines, cocaine, THC Status: Acute (6) Hypokalemia: Problem comment: Will replace potassium IV since he is nauseous at this time. Magnesium is 1.5 today. Recheck potassium in the morning. Status: Acute (7) Unsteady gait: Problem comment: Unclear if this is worse or if this is his baseline. Consult PT and OT Status: Chronic (8) Cardiac murmur: Problem comment: - patient also has significant hypertension and cocaine use. He is afebrile and white count and CRP are unremarkable. I think it is unlikely that this is vegetation, but will obtain an echo. Status: Acute
[2023-08-05 19:46] LABS: Lactate* 1.2 mmol/L (0.5-1.9)
[2023-08-05 20:01] LABS: Lipase* 81 U/L (23-300); Magnesium* 1.5 mg/dL (1.5-2.6)
[2023-08-05 20:06] LABS: Potassium* 2.9 mmol/L (3.6-5.1)
[2023-08-05] MEDS: PANTOPRAZOLE SODIUM 40 MG INJ IVP (21:07)
[2023-08-05] MEDS: SODIUM CHLORIDE 0.9 % (FLUSH) 10 ML SYRINGE 5 ML IVF (21:07)
[2023-08-06] VITALS (9 sets, daily range): BP systolic 126–181; BP diastolic 57–81; PULSE 50–68; RESP 16–18; TEMP 36–36.7; O2SAT 95–98; BMI 18.5
--- NOTE | 2023-08-06 05:50 | PC.NURSE ---
19-07: pleasant and cooperative. calls appropriately. uses urinal at bedside. no c/o headache or nausea. tele - NSR.
[2023-08-06 06:25] LABS: Basophils Absolute Auto 0.03 K/uL (0.00-0.30); Basophils Percent Auto 0.5 % (0.0-3.0); Eosinophils Absolute Auto 0.12 K/uL (0.00-0.50); Eosinophils Percent Auto 1.9 % (0.0-7.0); Hematocrit 29.6 % (37.0-53.0); Hemoglobin* 9.5 gm/dL (13.5-17.5); Immature Granulocytes Abs Auto 0.01 K/uL (0.00-0.30); Immature Granulocytes Pct Auto 0.2 %; Lymphocytes Absolute Auto 1.58 K/uL (0.90-2.90); Lymphocytes Percent Auto 25.3 % (20-44); Mean Corpuscular HGB Conc 32 gm/dL (32-36); Mean Corpuscular Hemoglobin 31 pg (26-34); Mean Corpuscular Volume 96 fL (80-100); Monocytes Percent Auto 9.1 % (0.0-11.0); Neutrophils Absolute Auto 3.93 K/uL (1.7-7.0); Platelet Count* 205 K/uL (140-440); RDW Coefficient of Variation % 17.1 % (11.5-15.5); Red Blood Count 3.08 m/uL (4.30-5.90); Slide Review Reflex No; White Blood Count* 6.24 K/uL (4.50-11.00)
[2023-08-06 06:36] LABS: Chloride* 101 mmol/L (96-114); Sodium* 133 mmol/L (135-149)
[2023-08-06 06:39] LABS: Anion Gap 1 mEq/L (7-15); Carbon Dioxide* 31 mmol/L (20-32); Creatinine* 1.2 mg/dL (0.5-1.5); Est. Creatinine Clearance* 49.55; Estimated Glomerular Filt Rate 65 ml/min
[2023-08-06 06:40] LABS: Blood Urea Nitrogen* 10 mg/dL (7-30); Calcium* 7.5 mg/dL (8.4-10.6); Glucose* 86 mg/dL (60-115)
[2023-08-06 06:43] LABS: Potassium* 2.9 mmol/L (3.6-5.1)
[2023-08-06] MEDS: POTASSIUM BICARB 25 MEQ EFFERVESCENT TAB 50 MEQ PO ×2 (08:19→09:46)
[2023-08-06] MEDS: MAGNESIUM IV 2 GM/50 ML PIGGYBACK IVPB (08:19)
[2023-08-06] MEDS: FOLIC ACID 1 MG TABLET PO (08:20)
[2023-08-06] MEDS: DULOXETINE 30 MG CAPSULE DR 90 MG PO (08:20)
[2023-08-06] MEDS: CYANOCOBALAMIN (VITAMIN B-12) 500 MCG TABLET 1000 MCG PO (08:20)
[2023-08-06] MEDS: THIAMINE 100 MG TABLET PO (08:20)
[2023-08-06] MEDS: SODIUM CHLORIDE 0.9 % (FLUSH) 10 ML SYRINGE 5 ML IVF ×2 (08:21→20:32)
[2023-08-06] MEDS: atenoloL 50 MG TABLET 25 MG PO (08:24)
[2023-08-06 08:48] LABS: Magnesium* 1.5 mg/dL (1.5-2.6)
--- NOTE | 2023-08-06 09:45 | PM.IMPN1 ---
Progress Note: A&P Assessment and plan (1) Hypertensive urgency: Problem details: - Blood pressure and headache are improving - hypertensive urgency is suspected to be due to cocaine use. - He received labetalol, a total of 10 mg, Benadryl, Zofran, Reglan, and morphine in the ER 08/04. - continue his usual home meds (consider titration or addition to this 25mg atenolol) - echo, prelim, shows normal LVF Status: Acute (2) Hypokalemia: Problem details: -oral potassium ordered 08/05 -monitor -replacing low normal Mag Status: Acute (3) Daily headache: Problem details: - CT head unremarkable - Improving - unclear if this is related to hypertension or not. This may be secondary to alcohol use, illicit drug use, daily use of Tylenol, or other. Currently his vision is unaffected. He may need further outpatient workup, possibly with more imaging or referral to Neurology. Status: Acute (4) Nausea & vomiting: Problem details: Associated with headache. -Improving Status: Acute (5) Abnormal urinalysis: Problem details: He is not having any urinary symptoms so I think this is likely asymptomatic bacteriuria rather than a urinary tract infection. Will hold off on further antibiotics. Monitor for symptoms. culture pending. Status: Acute (6) Illicit drug use: Problem details: - 08/04 Utox positve for opiates, amphetamines, methamphetamines, cocaine, THC Status: Acute (7) Unsteady gait: Problem details: Unclear if this is worse or if this is his baseline. Consult PT and OT Status: Chronic (8) Cardiac murmur: Problem details: - prelim review reassuring. Status: Acute (9) Anemia of chronic disease: Problem details: monitor - baseline is 9.0-9.5 Status: Acute (10) Alcohol use disorder: Problem details: No significant withdrawal; monitor Status: Acute (11) COPD (chronic obstructive pulmonary disease): Problem details: On Albuterol and Symbicort outpatient Status: Acute Subjective Date Seen: 08/06/23 Interval history: Daily Progress Note - Hospital Medicine Day #: 2 CC: Severe hypokalemia, polysubstance abuse, hypertensive urgency, severe headache OVERNIGHT UPDATES FROM STAFF & MED, LAB, IMAGING UPDATES His blood pressure has come down nicely. The high was 236/113. This morning he has been 160s to 180s systolic over 80s diastolic. S pulses been in the 60s. He has been afebrile. He is on room air. He states he is mildly nauseous. He said his headache is much better. Objective: Disheveled, chronic ill-appearing Vitals: see above Lungs: Clear. Cardiac: Systolic ejection murmur 06/13. Skin: Confluent bruising, thin skin. CBC reflects a normal white blood cell count of 6.24. His hemoglobin has dropped overnight from 11.1-9.5. However I think this is dilutional and actually more his baseline. Was 9.2 in early June. Likely from chronic disease. Platelets are normal. INR is normal Potassium remains at 2.9 this morning. Sodium is at his baseline at 1:33 a.m. Renal function is at his baseline of 1.2 His elevated lactate has resolved His LFTs and CRP were reassuring on admission and not been rechecked. His lipase is normal. Abnormal UA noted. Culture pending UDS reviewed. Head CT reviewed. This morning's EKG reviewed. Sinus tach. Disposition/Potential discharge - Likely to return to previous living situation. Today I spent 50minutes seeing the patient, reviewing Expanse and EPIC notes/diagnostics, discussing the care plan with our care time that includes social work, PT/OT, pharmacy, RT, half-way and documenting my impressions and plan in the medical record. Exam Const: Vital Signs, click to edit/add: Vital Signs - 24 hr 08/05/23 13:06 08/05/23 13:10 08/05/23 13:30 Temperature 98.7 F Pulse Rate 74 76 Pulse Rate [Pulse Oximeter] 71 Pulse Rate [Right Radial] Respiratory Rate 18 Blood Pressure Blood Pressure [Ri ght Arm] Blood Pressure [Ri ght Upper Arm] 173/83 H Pulse Oximetry 99 98 100 Oxygen Delivery Me thod Room Air 08/05/23 13:32 08/05/23 14:00 08/05/23 14:02 Temperature Pulse Rate 76 79 81 Pulse Rate [Pulse Oximeter] Pulse Rate [Right Radial] Respiratory Rate Blood Pressure 149/86 H 191/91 H Blood Pressure [Ri ght Arm] Blood Pressure [Ri ght Upper Arm] Pulse Oximetry 100 100 100 Oxygen Delivery Me thod 08/05/23 14:03 08/05/23 14:13 08/05/23 14:34 Temperature Pulse Rate 78 83 Pulse Rate [Pulse Oximeter] Pulse Rate [Right Radial] Respiratory Rate Blood Pressure Blood Pressure [Ri ght Arm] Blood Pressure [Ri ght Upper Arm] Pulse Oximetry 100 99 97 Oxygen Delivery Md thod 08/05/23 14:35 08/05/23 15:01 08/05/23 15:15 Temperature Pulse Rate 74 85 Pulse Rate [Pulse Oximeter] Pulse Rate [Right Radial] Respiratory Rate Blood Pressure 191/95 H 183/93 H Blood Pressure [Ri ght Arm] Blood Pressure [Ri ght Upper Arm] Pulse Oximetry 99 97 Oxygen Delivery Md thod 08/05/23 15:30 08/05/23 15:32 08/05/23 16:00 Temperature Pulse Rate 82 84 80 Pulse Rate [Pulse Oximeter] Pulse Rate [Right Radial] Respiratory Rate Blood Pressure 207/99 H Blood Pressure [Ri ght Arm] Blood Pressure [Ri ght Upper Arm] Pulse Oximetry 98 98 94 Oxygen Delivery Md thod 08/05/23 16:02 08/05/23 16:07 08/05/23 16:12 Temperature Pulse Rate 100 74 73 Pulse Rate [Pulse Oximeter] Pulse Rate [Right Radial] Respiratory Rate Blood Pressure 236/113 H 208/103 H 205/99 H Blood Pressure [Ri ght Arm] Blood Pressure [Ri ght Upper Arm] Pulse Oximetry 96 92 93 Oxygen Delivery Md thod 08/05/23 16:13 08/05/23 16:30 08/05/23 16:32 Temperature Pulse Rate 69 71 71 Pulse Rate [Pulse Oximeter] Pulse Rate [Right Radial] Respiratory Rate Blood Pressure 190/90 H Blood Pressure [Ri ght Arm] Blood Pressure [Ri ght Upper Arm] Pulse Oximetry 97 93 93 Oxygen Delivery Md thod 08/05/23 16:41 08/05/23 16:44 08/05/23 16:45 Temperature Pulse Rate 70 67 68 Pulse Rate [Pulse Oximeter] Pulse Rate [Right Radial] Respiratory Rate Blood Pressure 190/86 H 170/82 H Blood Pressure [Ri ght Arm] Blood Pressure [Ri ght Upper Arm] Pulse Oximetry 92 92 91 Oxygen Delivery Md thod 08/05/23 17:00 08/05/23 17:01 08/05/23 17:30 Temperature Pulse Rate 64 64 67 Pulse Rate [Pulse Oximeter] Pulse Rate [Right Radial] Respiratory Rate Blood Pressure 171/85 H Blood Pressure [Ri ght Arm] Blood Pressure [Ri ght Upper Arm] Pulse Oximetry 95 96 95 Oxygen Delivery Me thod 08/05/23 17:31 08/05/23 17:53 08/05/23 18:11 Temperature 97.0 F L Pulse Rate 65 Pulse Rate [Pulse Oximeter] Pulse Rate [Right Radial] 65 Respiratory Rate 16 16 Blood Pressure 194/90 H Blood Pressure [Ri ght Arm] 189/86 H Blood Pressure [Ri ght Upper Arm] Pulse Oximetry 95 94 94 Oxygen Delivery Me thod Room Air Room Air 08/05/23 18:52 08/05/23 20:10 08/05/23 22:04 Temperature 98.5 F Pulse Rate 69 Pulse Rate [Pulse Oximeter] Pulse Rate [Right Radial] Respiratory Rate 18 Blood Pressure Blood Pressure [Ri ght Arm] 132/62 Blood Pressure [Ri ght Upper Arm] Pulse Oximetry 94 94 Oxygen Delivery Md thod Room Air 08/05/23 22:04 08/05/23 22:43 08/05/23 22:54 Temperature 98.6 F Pulse Rate 70 Pulse Rate [Pulse Oximeter] Pulse Rate [Right Radial] 71 Respiratory Rate 18 18 Blood Pressure Blood Pressure [Ri ght Arm] 145/79 H Blood Pressure [Ri ght Upper Arm] Pulse Oximetry 94 93 Oxygen Delivery Md thod Room Air Room Air 08/05/23 23:00 08/06/23 03:00 08/06/23 07:06 Temperature 97.4 F L Pulse Rate 62 Pulse Rate [Pulse Oximeter] Pulse Rate [Right Radial] 71 64 Respiratory Rate 18 18 Blood Pressure Blood Pressure [Ri ght Arm] 162/68 H Blood Pressure [Ri ght Upper Arm] Pulse Oximetry 95 Oxygen Delivery Me thod Room Air 08/06/23 07:30 08/06/23 07:30 08/06/23 07:30 Temperature 96.8 F L Pulse Rate Pulse Rate [Pulse Oximeter] Pulse Rate [Right Radial] 68 Respiratory Rate 18 18 Blood Pressure Blood Pressure [Ri ght Arm] 181/81 H Blood Pressure [Ri ght Upper Arm] Pulse Oximetry 96 95 95 Oxygen Delivery Md thod Room Air Room Air 08/06/23 07:30 Temperature Pulse Rate Pulse Rate [Pulse Oximeter] Pulse Rate [Right Radial] 68 Respiratory Rate 18 Blood Pressure Blood Pressure [Ri ght Arm] Blood Pressure [Ri ght Upper Arm] Pulse Oximetry Oxygen Delivery Me thod Labs Labs: Laboratory Results - last 24 hr 08/05/23 08/05/23 08/05/23 14:00 15:43 19:40 WBC 6.64 RBC 3.59 L Hgb 11.1 L Hct 33.8 L MCV 94 MCH 31 MCHC 33 RDW Coeff of Nancy 16.9 H Plt Count 270 Neut % (Auto) 76.3 H Lymph % (Auto) 14.6 L [place] % (Auto) 6.9 Eos % (Auto) 0.5 Baso % (Auto) 0.5 Neut # (Auto) 5.10 Lymph # (Auto) 1.00 [place] # (Auto) 0.50 Eos # (Auto) 0.03 Baso # (Auto) 0.03 Abs Immat Gran (auto) 0.08 Imm/Tot Granulo (auto) 1.2 ESR 12 INR 0.87 L APTT 26 Sodium 133 L Potassium 2.9 L* 2.9 L* Chloride 97 Carbon Dioxide 32 Anion Gap 4 L BUN 11 Creatinine 1.2 Estimated Creat Clear 50.71 Estimated GFR 65 Glucose 83 Lactate 2.0 H 1.2 Calcium 8.2 L Magnesium 1.5 Total Bilirubin 0.9 Direct Bilirubin 0.5 AST 30 ALT 12 Alkaline Phosphatase 120 C-Reactive Protein < 0.5 L Total Protein 6.8 Albumin 3.6 Lipase Procalcitonin 0.16 Urine Color Yellow Urine Appearance Cloudy A Urine pH 7.0 Ur Specific [place] 1.015 Urine Protein Trace A Urine Glucose (UA) Negative Urine Ketones Trace A Urine Blood Negative Urine Nitrite Positive A Urine Bilirubin Negative Urine Urobilinogen 0.2 Ur Leukocyte Esterase Negative Urine RBC 0-2 Urine WBC 0-2 Ur Squamous Epith Cells None Urine Bacteria Many A Urine Opiates Screen POSITIVE A Ur Oxycodone Screen Negative Urine Methadone Screen Negative Ur Barbiturates Screen Negative U Tricyclic Antidepress Negative Ur Phencyclidine Scrn Negative Ur Amphetamines Screen POSITIVE A U Methamphetamines Scrn POSITIVE A U Benzodiazepines Scrn Negative Urine Cocaine Screen POSITIVE A U Marijuana (THC) Screen POSITIVE A Ur Drug Screen Comment See Note Ethyl Alcohol < 0.01 L Lab Acknowledgement 08/05/23 08/05/23 08/06/23 19:40 19:44 06:13 WBC 6.24 RBC 3.08 L Hgb 9.5 L Hct 29.6 L MCV 96 MCH 31 MCHC 32 RDW Coeff of Nancy 17.1 H Plt Count 205 Neut % (Auto) 63.0 Lymph % (Auto) 25.3 [place] % (Auto) 9.1 Eos % (Auto) 1.9 Baso % (Auto) 0.5 Neut # (Auto) 3.93 Lymph # (Auto) 1.58 [place] # (Auto) 0.60 Eos # (Auto) 0.12 Baso # (Auto) 0.03 Abs Immat Gran (auto) 0.01 Imm/Tot Granulo (auto) 0.2 ESR INR APTT Sodium 133 L Potassium 2.9 L* Chloride 101 Carbon Dioxide 31 Anion Gap 1 L BUN 10 Creatinine 1.2 Estimated Creat Clear 49.55 Estimated GFR 65 Glucose 86 Lactate Calcium 7.5 L Magnesium Cancelled 1.5 Total Bilirubin Direct Bilirubin AST ALT Alkaline Phosphatase C-Reactive Protein Total Protein Albumin Lipase 81 Procalcitonin Urine Color Urine Appearance Urine pH Ur Specific [place] Urine Protein Urine Glucose (UA) Urine Ketones Urine Blood Urine Nitrite Urine Bilirubin Urine Urobilinogen Ur Leukocyte Esterase Urine RBC Urine WBC Ur Squamous Epith Cells Urine Bacteria Urine Opiates Screen Ur Oxycodone Screen Urine Methadone Screen Ur Barbiturates Screen U Tricyclic Antidepress Ur Phencyclidine Scrn Ur Amphetamines Screen U Methamphetamines Scrn U Benzodiazepines Scrn Urine Cocaine Screen U Marijuana (THC) Screen Ur Drug Screen Comment Ethyl Alcohol Lab Acknowledgement Test Added 08/06/23 08:29 WBC RBC Hgb Hct MCV MCH MCHC RDW Coeff of [place] Plt Count Neut % (Auto) Lymph % (Auto) [place] % (Auto) Eos % (Auto) Baso % (Auto) Neut # (Auto) Lymph # (Auto) [place] # (Auto) Eos # (Auto) Baso # (Auto) Abs Immat Gran (auto) Imm/Tot Granulo (auto) ESR INR APTT Sodium Potassium Chloride Carbon Dioxide Anion Gap BUN Creatinine Estimated Creat Clear Estimated GFR Glucose Lactate Calcium Magnesium Total Bilirubin Direct Bilirubin AST ALT Alkaline Phosphatase C-Reactive Protein Total Protein Albumin Lipase Procalcitonin Urine Color Urine Appearance Urine pH Ur Specific [place] Urine Protein Urine Glucose (UA) Urine Ketones Urine Blood Urine Nitrite Urine Bilirubin Urine Urobilinogen Ur Leukocyte Esterase Urine RBC Urine WBC Ur Squamous Epith Cells Urine Bacteria Urine Opiates Screen Ur Oxycodone Screen Urine Methadone Screen Ur Barbiturates Screen U Tricyclic Antidepress Ur Phencyclidine Scrn Ur Amphetamines Screen U Methamphetamines Scrn U Benzodiazepines Scrn Urine Cocaine Screen U Marijuana (THC) Screen Ur Drug Screen Comment Ethyl Alcohol Lab Acknowledgement Test Added
[2023-08-06] MEDS: NICOTINE 21 MG PATCH 1 PATCH TRANSDERMA (09:47)
[2023-08-06] MEDS: ONDANSETRON 2 MG/ML inj 4 MG IVP (09:47)
[2023-08-06 10:24] LABS: Iron* 43 ug/dL (49-181)
[2023-08-06 10:34] LABS: Percent Iron Saturation 15 % (20-50); Total Iron Binding Capacity 277 ug/dL (261-462)
[2023-08-06] MEDS: AMLODIPINE 5 MG TABLET 2.5 MG PO (10:41)
--- NOTE | 2023-08-06 10:58 | PC.SOCIAL ---
Discharge planning: bridge worker met with pt today in his room. Pt stated that he does have services through [facility] coming into his home and is pleased with those services. Pt stated that he lives with his sister and that she is helpful. Pt had no other concerns or questions at this time. bridge worker will make sure that the pt has a resumption of care order for home care in his discharge summary. Social work to follow-up as needed.
[2023-08-06 11:00] LABS: Ferritin* 12.1 ng/mL (17.9-464.0)
[2023-08-06 16:05] LABS: Ionized Calcium* 1.04 mmol/L (1.11-1.30)
[2023-08-06 16:09] LABS: Hemoglobin* 9.7 gm/dL (13.5-17.5)
[2023-08-06 16:23] LABS: Chloride* 100 mmol/L (96-114)
[2023-08-06 16:24] LABS: Potassium* 4.2 mmol/L (3.6-5.1); Sodium* 130 mmol/L (135-149)
[2023-08-06 16:26] LABS: Creatinine* 1.1 mg/dL (0.5-1.5); Est. Creatinine Clearance* 54.06; Estimated Glomerular Filt Rate 72 ml/min
[2023-08-06 16:27] LABS: Anion Gap -4 mEq/L (7-15); Blood Urea Nitrogen* 11 mg/dL (7-30); Calcium* 7.8 mg/dL (8.4-10.6); Carbon Dioxide* 34 mmol/L (20-32); Glucose* 95 mg/dL (60-115); Magnesium* 2.2 mg/dL (1.5-2.6)
--- NOTE | 2023-08-06 17:38 | PC.NURSE ---
End of shift. pt has been pleasant and cooperative. alert x4. complained of LAINEZ and back pain. he did not want anything for it. tele shows !st degree HB to zelda., he is up with 1 assist walker and GB. SL is patent. he has a brief on but uses the urinal. he is eating and drinking. he got po potassium and had nausea and got Zofran.
[2023-08-06] MEDS: OLANZapine 5 MG TAB.RAPDIS 2.5 MG PO (20:32)
[2023-08-07 03:05] VITALS: BP 142/54; PULSE 47; TEMP 36.5; O2SAT 96
[2023-08-07] MEDS: ACETAMINOPHEN 325 MG TABLET 650 MG PO (03:36)
--- NOTE | 2023-08-07 06:19 | PC.NURSE ---
End of shift [id number]: A&O pleasant and cooperative. VSS w/ sats >90% on RA. Using urinal at bedside. Up with SBA. Reports headache rating pain 5/10. One time Tylenol dose given per MD. Using call light appropriately. ?
[2023-08-07 06:32] LABS: HCO3 VBG 36 mmol/L (21-28); Ionized Calcium* 1.07 mmol/L (1.11-1.30); PCO2 VBG 53 mmHG (40-50); PO2 VBG < 30.1 mmHG (25-47); pH VBG 7.442 (7.32-7.43)
[2023-08-07 06:35] LABS: Basophils Absolute Auto 0.03 K/uL (0.00-0.30); Basophils Percent Auto 0.5 % (0.0-3.0); Eosinophils Absolute Auto 0.13 K/uL (0.00-0.50); Eosinophils Percent Auto 2.1 % (0.0-7.0); Hemoglobin* 9.4 gm/dL (13.5-17.5); Immature Granulocytes Abs Auto 0.05 K/uL (0.00-0.30); Immature Granulocytes Pct Auto 0.8 %; Lymphocytes Absolute Auto 1.71 K/uL (0.90-2.90); Lymphocytes Percent Auto 27.6 % (20-44); Mean Corpuscular HGB Conc 31 gm/dL (32-36); Mean Corpuscular Hemoglobin 30 pg (26-34); Mean Corpuscular Volume 97 fL (80-100); Neutrophils Absolute Auto 3.65 K/uL (1.7-7.0); Platelet Count* 222 K/uL (140-440); RDW Coefficient of Variation % 17.3 % (11.5-15.5); Red Blood Count 3.09 m/uL (4.30-5.90); White Blood Count* 6.19 K/uL (4.50-11.00)
[2023-08-07 06:45] LABS: Slide Review Reflex No
[2023-08-07 06:58] LABS: Chloride* 99 mmol/L (96-114)
[2023-08-07 06:59] LABS: Sodium* 131 mmol/L (135-149)
[2023-08-07 07:01] LABS: Anion Gap -5 mEq/L (7-15); Carbon Dioxide* 37 mmol/L (20-32); Creatinine* 1.2 mg/dL (0.5-1.5); Est. Creatinine Clearance* 48.61; Estimated Glomerular Filt Rate 65 ml/min
[2023-08-07 07:02] LABS: Blood Urea Nitrogen* 10 mg/dL (7-30); Calcium* 7.7 mg/dL (8.4-10.6); Glucose* 93 mg/dL (60-115)
[2023-08-07 07:15] VITALS: PULSE 47
[2023-08-07 07:30] VITALS: BP 149/84; PULSE 57; RESP 18; TEMP 35.9; O2SAT 95; O2SAT 96
[2023-08-07 07:35] VITALS: PULSE 57; RESP 18
[2023-08-07] MEDS: POTASSIUM CHLORIDE 10 MEQ CAPSULE ER 40 MEQ PO (09:24)
[2023-08-07] MEDS: cephALEXin 500 MG CAPSULE 1000 MG PO (09:25)
[2023-08-07] MEDS: FERROUS SULFATE 325 MG TABLET PO (09:26)
[2023-08-07] MEDS: AMLODIPINE 5 MG TABLET 2.5 MG PO (09:26)
[2023-08-07] MEDS: DULOXETINE 30 MG CAPSULE DR 90 MG PO (09:27)
[2023-08-07] MEDS: CYANOCOBALAMIN (VITAMIN B-12) 500 MCG TABLET 1000 MCG PO (09:27)
[2023-08-07] MEDS: FOLIC ACID 1 MG TABLET PO (09:27)
[2023-08-07] MEDS: atenoloL 50 MG TABLET 25 MG PO (09:27)
[2023-08-07] MEDS: THIAMINE 100 MG TABLET PO (09:27)
[2023-08-07] MEDS: PYRIDOXINE HCL (VITAMIN B6) 25 MG TABLET PO (09:28)
--- NOTE | 2023-08-07 10:42 | PM.DS1 ---
DS: Providers Provider Date Seen: 08/07/23 Date of admission: 08/05/23 17:29 Primary care physician: Not a Local Provider Admitting Clinician: Franchesca Vargas MD Consults: 08/05/23 18:11 Consult to Physical Therapy [CONS] Routine Comment: Reason(s) for PT Consult:: Evaluate and Treat Any Restrictions?:: No Restrictions Consult to Marker Assembler [CONS] Routine Comment: Reason for Consult:: Substance Abuse Screening 08/05/23 18:12 Consult to Occupational Therapy [CONS] Routine Comment: Reason(s) for OT Consult:: Evaluate and Treat Any Restrictions?:: No Restrictions Attending Physician on discharge: Franchesca Vargas MD Date of Discharge: 08/07/23 DS: Diagnosis Discharge Diagnosis (1) Hypertensive urgency: Status: Acute Problem details: - Blood pressure and headache have greatly improved. - hypertensive urgency is suspected to be due to cocaine use. - He received labetalol, a total of 10 mg, Benadryl, Zofran, Reglan, and morphine in the ER 08/04. - continue his home atenolol dose with addition of amlodipine 2.5mg daily. - echo reassuring (2) Hypokalemia: Status: Acute Problem details: -resolved. Mag normal. (3) Illicit drug use: Status: Acute Problem details: - 08/04 Utox positve for opiates, amphetamines, methamphetamines, cocaine, THC - stressed abstinence. (4) Nausea & vomiting: Status: Acute Problem details: Associated with headache. -Improving (5) Daily headache: Status: Acute Problem details: - CT head unremarkable - Improving - unclear if this is related to hypertension or not. This may be secondary to alcohol use, illicit drug use, daily use of Tylenol, or other. Currently his vision is unaffected. He may need further outpatient workup, possibly with more imaging or referral to Neurology. (6) Alcohol use disorder: Status: Acute Problem details: No significant withdrawal; monitor (7) Anemia of chronic disease: Status: Acute Problem details: monitor - baseline is 9.0-9.5 (8) UTI (urinary tract infection): Status: Acute Problem details: Pansensitive E coli. Started oral cephalexin on day of discharge and will continue for 7 days. (9) Unsteady gait: Status: Chronic Problem details: PT and OT have evaluated and he is back to baseline. DS: Summary Hospital Course Hospital Course: FINAL DIAGNOSIS/FOLLOW UP ISSUES: Hypertensive urgency: Resolved as his cocaine wore off. IV labetalol. Adding oral amlodipine to his oral atenolol. Daily blood pressure checks recommended. Hypokalemia: Replaced IV and orally. Normal at discharge Polysubstance abuse: Stressed again the importance of abstinence. UTI: Continue oral Keflex till completion BRIEF HOSPITAL COURSE: Patient was admitted for 3 days. Synopsis of acute inpatient issues are outlined above. Chronic medical conditions with notable findings outlined above. Jez did well. He felt a lot better when his blood pressure came down and his cocaine wore off. His headache was much better. His blood pressure was near normal at discharge. His potassium was normal at discharge. He did have a UTI, being sent home on oral Keflex. I added amlodipine to his hypertensive regimen. I told him to stay away from the drugs. DISCHARGE MEDICATIONS: See Reconciled list - SIGNIFICANT CHANGES: Amlodipine 2.5 mg daily Keflex 1 g b.i.d. for a total of 7 days. Specific instructions to the patient and follow-up are outlined below. REVIEW OF SYSTEMS No new chest pain or dyspnea Pain controlled No voiding difficulties Tolerating diet challenge PHYSICAL EXAM: CONSTITUTIONAL: Disheveled but brighter and he clearly looks and feels better. VITAL SIGNS: see record. HEENT: Normocephalic, atraumatic. PERRL, EOMI, conjunctivae pink, no scleral icterus. Ears and nose externally normal. Pharynx normal. NECK: No JVD. No carotid bruit, no thyromegaly, no adenopathy. CHEST: Clear to auscultation bilaterally. HEART: S1 and S2 normal. Murmur previously discussed noted. ABDOMEN: Soft, nontender. Normal bowel sounds. MUSCULOSKELETAL: No gross joint deformity or swelling. NEURO: Cranial nerves intact. Grossly intact. No asymmetric findings. SKIN: No rashes, petechiae, concerning changes PSYCHIATRIC: Mood euthymic. DISPOSITION: Home with family Time spent on discharge 37 minutes. Status at Discharge Functional status at discharge: uses cane/walker Overall status at discharge: patient is progressing back to baseline Time Spent with Patient Time attestation: Total time spent providing and/or coordinating discharge services: Time spent: Greater than 30 minutes Exam Const: Vital Signs, click to edit/add: Vital Signs - 24 hr 05/29/24 11:18 08/06/23 15:30 08/06/23 15:30 Temperature 98.0 F Pulse Rate 50 L Pulse Rate [Pulse Oximeter] Pulse Rate [Right Radial] 53 L Respiratory Rate 18 Blood Pressure [Ri ght Arm] 138/57 L Pulse Oximetry 98 96 Oxygen Delivery Me thod Room Air 08/06/23 15:30 08/06/23 15:30 08/06/23 15:30 Temperature 98.0 F Pulse Rate Pulse Rate [Pulse Oximeter] Pulse Rate [Right Radial] 53 L 53 L Respiratory Rate 18 18 18 Blood Pressure [Ri ght Arm] 138/57 L Pulse Oximetry 96 96 Oxygen Delivery Me thod Room Air Room Air 08/06/23 19:12 08/06/23 22:10 08/06/23 22:47 Temperature 98.0 F 98.0 F Pulse Rate 50 L Pulse Rate [Pulse Oximeter] 55 L 50 L Pulse Rate [Right Radial] Respiratory Rate 16 18 Blood Pressure [Ri ght Arm] 126/62 134/68 Pulse Oximetry 95 95 Oxygen Delivery Me thod Room Air Room Air 08/06/23 22:47 08/06/23 22:48 08/07/23 03:05 Temperature 97.7 F Pulse Rate Pulse Rate [Pulse Oximeter] 47 L Pulse Rate [Right Radial] Respiratory Rate 18 Blood Pressure [Ri ght Arm] 142/54 H Pulse Oximetry 95 95 96 Oxygen Delivery Me thod Room Air Room Air 08/07/23 07:15 08/07/23 07:30 08/07/23 07:30 Temperature Pulse Rate 47 L Pulse Rate [Pulse Oximeter] Pulse Rate [Right Radial] Respiratory Rate 18 Blood Pressure [Ri ght Arm] Pulse Oximetry 96 96 Oxygen Delivery Me thod Room Air 08/07/23 07:30 08/07/23 07:35 Temperature 96.6 F L Pulse Rate Pulse Rate [Pulse Oximeter] 57 L 57 L Pulse Rate [Right Radial] Respiratory Rate 18 18 Blood Pressure [Ri ght Arm] 149/84 H Pulse Oximetry 95 Oxygen Delivery Me thod Room Air DS: Data Data Completed and Pending Labs on day of discharge: Labs from last 24 hours 08/07/23 08/06/23 08/06/23 05:38 16:02 06:13 WBC 6.19 RBC 3.09 L Hgb 9.4 L 9.7 L Hct 30.0 L MCV 97 MCH 30 MCHC 31 L RDW Coeff of Nancy 17.3 H Plt Count 222 Neut % (Auto) 59.0 Lymph % (Auto) 27.6 [place] % (Auto) 10.0 Eos % (Auto) 2.1 Baso % (Auto) 0.5 Neut # (Auto) 3.65 Lymph # (Auto) 1.71 [place] # (Auto) 0.60 Eos # (Auto) 0.13 Baso # (Auto) 0.03 Abs Immat Gran (auto) 0.05 Imm/Tot Granulo (auto) 0.8 VBG pH 7.442 H VBG pCO2 53 H VBG pO2 < 30.1 VBG HCO3 36 H Sodium 131 L 130 L Potassium 4.0 4.2 Chloride 99 100 Carbon Dioxide 37 H 34 H Anion Gap -5 L -4 L BUN 10 11 Creatinine 1.2 1.1 Estimated Creat Clear 48.61 54.06 Estimated GFR 65 72 Glucose 93 95 Calcium 7.7 L 7.8 L Ionized Calcium Bud 1.07 L 1.04 L Magnesium 2.0 2.2 Iron 43 L TIBC 277 % Saturation 15 L Ferritin 12.1 L TSH 1.730 Discharge Plan Discharge Disposition: Home w/ Parent or Adult Date of Admission: 08/05/23 17:29 Attending Provider on Discharge: Debbi Aragon Primary Care Provider: Provider,Not a Local Anticipated Discharge Date/Time: 08/07/23 09:38 Discharge Medications: New amlodipine 5 mg Tablet 2.5 mg PO DAILY Qty: 30 0RF cephalexin 500 mg capsule 1,000 mg PO BID Qty: 20 0RF Continued duloxetine 60 mg capsule,delayed release(DR/EC) 90 mg PO DAILY folic acid 1 mg tablet 1 mg PO HS atenolol 50 mg tablet 25 mg PO DAILY omeprazole 20 mg capsule,delayed release(DR/EC) 40 mg PO DAILY PRN cholecalciferol (vitamin D3) 25 mcg (1,000 unit) capsule 25 mcg PO DAILY olanzapine 2.5 mg tablet 2.5 mg PO QHS cyanocobalamin (vitamin B-12) 1,000 mcg tablet 1,000 mcg PO DAILY pyridoxine (vitamin B6) 50 mg tablet 25 mg PO DAILY thiamine mononitrate (vit B1) 100 mg tablet 100 mg PO BID ferrous gluconate 324 mg (38 mg iron) tablet 324 mg PO Q OTHER DAY Discharge Orders: Discharge Order (Routine); Ordered 08/07/23 Ordered By: Debbi Aragon Patient Education: Cephalexin (By mouth), Amlodipine (By mouth), Urinary Tract Infection in Men (DC), Chronic Hypertension (DC), Polysubstance Use Disorder (DC) Additional Instructions: RESUME HOME HEALTH CARE Urinary tract infection - finish all antibiotic. High blood pressure/headache - take your blood pressure daily. We've added a new medication (amlodipine) to your atenolol. Please stop using cocaine, meth, opioids. THC is ok. Limit alcohol to 2 drinks a day, maximum. Activity Level: Activity as Tolerated Discharge Diet: Regular Follow Up Appointments: Ifrah Smith PA-C [Referring] - 08/28/23 12:15 pm ([facility] for high blood pressure and headaches.) Abimael Rm MD [Referring] - 08/28/23 (next routine appt for f/u high blood pressure, headaches, hospital f/u. ) Forms: [employer] Info Instructions
--- NOTE | 2023-08-07 10:58 | PC.NURSE ---
Discharge. pt is still very pleasant and cooperative. alert x4. complained of back pain. which is normal for him. he did not want anything for it. tele shows !st degree HB to zelda. he is up with 1 assist walker and GB. SL is patent it was d/c intact. . he has a brief on but uses the urinal. he is eating and drinking. went over discharge packet. pt went over and signed personal belong sheet. pt got a w/c ride out with all belongings and paperwork.
== END 2023-08-07 10:50 | disposition home or self-care (01) ==
LOC: ED 17:11 → MEDSURG 17:30
PROVIDERS: Family Medicine; Admitting Provider Family Medicine; Emergency Provider Family Medicine; Visit Provider Family Medicine
DX: I16.0 Hypertensive urgency (principal); F19.90 Other psychoactive substance use, unspecified, uncomplicated; E87.6 Hypokalemia; N39.0 Urinary tract infection, site not specified; R82.90 Unspecified abnormal findings in urine; R51.9 Headache, unspecified; R11.2 Nausea with vomiting, unspecified; D63.8 Anemia in other chronic diseases classified elsewhere; F10.90 Alcohol use, unspecified, uncomplicated; F12.90 Cannabis use, unspecified, uncomplicated; Z72.0 Tobacco use; I10 Essential (primary) hypertension; R01.1 Cardiac murmur, unspecified; B96.29 Other Escherichia coli [E. coli] as the cause of diseases classified elsewhere; R26.81 Unsteadiness on feet; J44.9 Chronic obstructive pulmonary disease, unspecified; G62.9 Polyneuropathy, unspecified; K21.9 Gastro-esophageal reflux disease without esophagitis; F43.10 Post-traumatic stress disorder, unspecified; F32.A Depression, unspecified; Z87.19 Personal history of other diseases of the digestive system; Z85.46 Personal history of malignant neoplasm of prostate; Z90.89 Acquired absence of other organs; Z90.79 Acquired absence of other genital organ(s); Z98.890 Other specified postprocedural states
CPT/HCPCS: 36415; 70450; 80048; 80053; 80306; 81001; 82077; 82248; 82330; 82728; 82803; 83540; 83550; 83605; 83690; 83735; 84132; 84145; 84443; 85018; 85025; 85610; 85651; 85730; 86140; 87086; 87186; 93005; 93306; 94761; 96365; 96366; 96367; 96368; 96375; 96376; 97116; 97163; 97165; 97530; 99285; G0378; A9270; C9113; J0696; J1200; J2270; J2405; J2765; J3475; J3480; J7030; S4990

== ENCOUNTER 2023-09-10 14:18 | Outpatient (CLI) | payer OTHER, SELFPAY ==
--- OUTSIDE RECORDS SUMMARY | 2023-09-23 04:38 | XMS_ITS | Encounter Summary ---
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 Date/Time Encounter Type Encounter Description Reason Provider Source Jun 04, 2023 09:46 AM OFFICE O/P EST HI 40 MIN ANESTHESIA PRE/POST-OP CONSULT ICD-10-CM Z71.6 Tobacco abuse counseling MARTHA ELIAS Gillian Encounter Template Text not used by [place] Assessments - Encounter Diagnoses This section includes the primary and secondary diagnoses documented for the Encounter. Date/Time Primary/Secondary Diagnosis Diagnosis Name Provider Source Jun 04, 2023 09:52 AM PRIMARY Tobacco abuse counseling MARTHA ELIAS [facility] Jun 04, 2023 09:52 AM SECONDARY Anogenital herpesviral infection, unspecified MARTHA ELIAS [facility] Jun 04, 2023 09:52 AM SECONDARY Chronic obstructive pulmonary disease, unspecified MARTHA ELIAS [facility] Jun 04, 2023 09:52 AM SECONDARY Encounter for other preprocedural examination MARTHA ELIAS [facility] Jun 04, 2023 09:52 AM SECONDARY Idiopathic progressive neuropathy MARTHA ELIAS [facility] Jun 04, 2023 09:52 AM SECONDARY Major depressive disorder, recurrent, moderate MARTHA ELIAS [facility] Jun 04, 2023 09:52 AM SECONDARY Post-traumatic stress disorder, chronic MARTHA ELIAS [facility] Plan of Treatment: Future Appointments (+ 6 months) and Future Tests (+/- 45 days) The Plan of Treatment section includes future care activities for the patient from all [place] [facility]. This section includes future appointments and future orders which are active, pending or scheduled. Future Appointments This section includes appointments that were scheduled to occur 6 months from the date of the Encounter, up to a maximum of 20 appointments. The data comes from all [facility]. Appointment Date/Time Appointment Type Appointme nt Facility Name July 16, 2023 09:00 AM AMBULATORY - PSYCHIATRY [facility] August 07, 2023 02:27 PM AMBULATORY - NONE [facility] Aug 25, 2023 11:45 AM AMBULATORY - NONE [facility] Sep 23, 2023 08:15 AM AMBULATORY - NONE [facility] Sep 23, 2023 09:15 AM AMBULATORY - MEDICINE [facility] Active, Pending, and Scheduled Orders This section includes a listing of several types of active, pending, and scheduled orders, including clinic medications orders, diagnostic test orders, procedure orders and consult orders; where the start date of the order is 45 days before the date of the Encounter or 45 days after the date of theEncounter. The data comes from all [facility]. Test Date/Time Test Type Test Details Facility Name Apr 29, 2023 12:00 AM Laboratory - Chemi stry Order CBC BLOOD SP [facility] Apr 29, 2023 12:00 AM Laboratory - Chemi stry Order BASIC METABOLIC PANEL+MG PLASMA SP ONCE [facility] July 18, 2023 12:00 AM Laboratory - Chemi stry Order CBC BLOOD SP ONCE [facility] July 18, 2023 12:00 AM Laboratory - Chemi stry Order IRON GROUP SERUM SP [facility] Social History: Smoking Status (Most current) and Tobacco Use (All prior to encounter date) This section includes the most current, and the historical, smoking and tobacco- related health factors from the [place] facility where the Encounter took place. Current Smoking Status This section includes the most current smoking, or tobacco-related health factor, from the [place] facility where the Encounter took place. Date/Time Current Smoking Status Comment Facil ity Aug 20, 2022 09:15 AM VA-TOBACCO USER EVERY DAY [facility] Tobacco Use History This section includes a history of the smoking, or tobacco-related health factors, that were collected on or before the date of the Encounter. The data comes from the [place] facility where the Encounter took place. Date/Time Smoking Status/Tobacco Use Comment F acility Aug 20, 2022 09:15 AM VA-TOBACCO USE ADVICE [facility] Aug 20, 2022 09:15 AM VA-TOBACCO USE CAMPAIGN COORDINATOR NO [facility] Aug 20, 2022 09:15 AM VA-TOBACCO USE MED NO [facility] Aug 20, 2022 09:15 AM VA-TOBACCO USE [place] 30 MIN OF WAKE UP [facility] Aug 20, 2022 09:15 AM VA-TOBACCO USER EVERY DAY [facility] Sep 12, 2021 09:15 AM VA-TOBACCO USE 30 YEARS OR MORE [facility] Sep 12, 2021 09:15 AM VA-TOBACCO USE ADVICE [facility] Sep 12, 2021 09:15 AM VA-TOBACCO USE CAMPAIGN COORDINATOR NO [facility] Sep 12, 2021 09:15 AM VA-TOBACCO USE MED NO [facility] Sep 12, 2021 09:15 AM VA-TOBACCO USE [place] 30 MIN OF WAKE UP [facility] Sep 12, 2021 09:15 AM VA-TOBACCO USER EVERY DAY [facility] Sep 01, 2020 01:30 PM VA-TOBACCO DOESNT USE [place] 30 MIN WAKEUP [facility] Sep 01, 2020 01:30 PM VA-TOBACCO USE 30 YEARS OR MORE [facility] Sep 01, 2020 01:30 PM VA-TOBACCO USE ADVICE [facility] Sep 01, 2020 01:30 PM VA-TOBACCO USE CAMPAIGN COORDINATOR NO [facility] Sep 01, 2020 01:30 PM VA-TOBACCO USE MED NO [facility] Sep 01, 2020 01:30 PM VA-TOBACCO USER EVERY DAY [facility] Sep 27, 2019 09:35 AM VA-TOBACCO USE 30 YEARS OR MORE [facility] Sep 27, 2019 09:35 AM VA-TOBACCO USE ADVICE [facility] Sep 27, 2019 09:35 AM VA-TOBACCO USE CAMPAIGN COORDINATOR NO [facility] Sep 27, 2019 09:35 AM VA-TOBACCO USE MED NO [facility] Sep 27, 2019 09:35 AM VA-TOBACCO USE [place] 30 MIN OF WAKE UP [facility] Sep 27, 2019 09:35 AM VA-TOBACCO USER EVERY DAY [facility] Mar 04, 2018 01:45 PM VA-TOBACCO USE 30 YEARS OR MORE [facility] Mar 04, 2018 01:45 PM VA-TOBACCO USE ADVICE [facility] Mar 04, 2018 01:45 PM VA-TOBACCO USE CAMPAIGN COORDINATOR NO [facility] Mar 04, 2018 01:45 PM VA-TOBACCO USE MED NO [facility] Mar 04, 2018 01:45 PM VA-TOBACCO USE [place] 30 MIN OF WAKE UP [facility] Mar 04, 2018 01:45 PM VA-TOBACCO USER EVERY DAY [facility] Apr 22, 2017 10:01 AM CURRENT TOBACCO USER [facility] Apr 16, 2016 09:52 AM CURRENT TOBACCO USER [facility] July 26, 2014 09:08 AM CURRENT TOBACCO USER [facility] Dec 31, 2013 10:06 AM CURRENT TOBACCO USER [facility] Sep 05, 2012 09:27 AM CURRENT TOBACCO USER [facility] Nov 25, 2011 09:12 AM CURRENT TOBACCO USER [facility] Feb 08, 2011 10:04 AM CURRENT TOBACCO USER [facility] May 01, 2010 10:24 AM CURRENT TOBACCO USER [facility] Jul 03, 2009 08:42 AM CURRENT TOBACCO USER [facility] Encounter Notes: All associated encounter notes [...] MD ANESTHESIOLOGIST Signed: 06/04/2023 11:22 MARTHA ELIAS [facility] Jun 04, 2023 09:46 AM ANESTHESIOLOGY [...] the followin. Heavy tobacco smoker (SNOMED CT 612975225850785) 2. Depression (SNOMED CT 24282277) 3. Chronic post-traumatic stress disorder following combat (SNOMED CT 4. Idiopathic chronic neuropathy (SNOMED CT 178105621) - EMG-proven 5. Lumbar spondylosis 6. Prostate Cancer (SCT 022690431) - status post radical retroprostatectomy 2012 complicated by incontinence 7. 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 Osteopenia - per 10/2022 DEXA 9. Recurrent falls - Likely driven by of his severe lower extremity neuropathy 10. Alcohol Abuse (RUST [id number]) 11. Gastritis - suspected NSAID-induced 2014 +/- EtOH: remains on PPI 12. COPD - Chronic Obstructive Pulmonary Disease (RUST [id number]) 13. History of Polyp of Colon (RUST [id number]) - last colonoscopy 06/21/2013 notable for hyperplastic polyp w/ repeat due June 2023 for screening purposes 14. 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 Insomnia (RUST [id number]) 16. Vitamin D deficiency 17. Vitamin B12 deficiency (non anemic) 18. Exposure to potentially hazardous substance (RUST [id number]) - [facility] 19. Genital herpes simplex [...] 09:46 CONFIDENTIAL PULMONARY FUNCTION TEST FRANCES SKELTON [id number] NOT INPATIENT : Sep PROCEDURE DATE/TIME: 09/29/09 [...] 75.8 PF L/SEC 7.669 4.590 59.8 4.70 LAK31-27 L/SEC 3.504 1.470 41.9 1.84 FEV1/FVC % 57 AFTER BRONCHODILATOR (NOTES): (NOTES): FVC L 4.66 4.86 104.2 FEV1 L 3.55 3.50 98.6 PF L/SEC 7.669 6.400 83.5 4.70 [id number] L/SEC 3.504 2.630 75.1 1.84 FEV1/FVC % [...] BY: PREDICTED VALUE FORMULAS USED TLC .0795*HT+(.0032*AGE)-7.333 VC .06*HT-(.0214*AGE)-4.65 FRC .032*HT-2.94 RV .019*HT+(.0207*AGE)-2.24 FVC -.1933+(.29252*AGE)-(.045084*(A GE*AGE))+(.99801216*(HT*HT))NHa david [age] FEV1 .5536-(.35058*AGE)-(.881371*(AG E*AGE))+(.31422824*(HT*HT))Raghavendra es III +99 PF 3.9*HT-(3*AGE)-49.36/60 GRANT [facility]95-76 .0204*HT-(.038*AGE)+2.133 MVV 1.356*HT-(1.26*AGE)-21.4 DLCO-SB .410*HT-(.21*AGE)-26.31 COHB RONEY. ACT*(1+COHB) DAVINA HB RONEY. HB+10.22/(1.7*HB)*ACT COTES 72 NOTE: HT=height,WT=weight,ACT=actual measurement value Carotid Ultrasound US [...] the plan were discussed with the patient/responsible human resources representative. The patient/human resources representative has been encouraged to ask questions and any concerns have been addressed. The patient/human resources representative endorses understanding of the information disclosed. The patient/human resources representative voluntarily elects to move forward with the anesthetic plan. Phase II PACU full code No data available for: LIFE-SUSTAINING TREATMENT Life Sustaining Treatment Orders /es/ MARTHA G SWANLUND, MD ANESTHESIOLOGIST Signed: 06/04/2023 09:52 MARTHA ELIAS [facility]
--- OUTSIDE RECORDS SUMMARY | 2023-09-23 04:38 | XMS_ITS | Continuity of Care Document ---
Author Name [facility] Organization [facility] Care Team Providers Care Aoc Plans Intelligence Officer Chief Name Role Phone [facility] Unavailable Unavailable Problems Combined list of problems from Department of Defense and Veterans Affairs facilities. It does not include entries that were removed or entered in error. Problem Status Onset Date Problem Type Date of Resolution Comments Source Exposure to potentially hazardous substance ([facility] [id number]) Active 024 Condition May 14, 2023 Entered By: SMITH COTTON [facility]: [facility] Documentation Initiative [facility] Alcohol Abuse ([facility] 14139349) Active Condition [facility] Arango's esophagus Active Condition 2023 Entered By: KAREN DOVE Comment: per 2023 EGD [facility]23 Entered By: KAREN DOVE Comment: repeat EGD due 04/2026 [facility] Chronic post-traumatic stress disorder following combat (SNOMED CT 603713710) Active Condition [facility] COPD - Chronic Obstructive Pulmonary Disease (SCT 44597448) Active Condition [facility] Depression (SNOMED CT 14062653) Active Condition [facility] Dysphagia Active Condition Mar 31 Entered By: KAREN DOVE Comment: 04/11 esophagogastric junction outlet obstructionJan 2023 Entered By: KAREN DOVE Comment: esophageal manometry suggestive of EGJOOJan 2023 Entered By: KAREN DOVE Comment: s/p Botox injections at the GE junction [facility] Gastritis Active Condition Mar 31 Entered By: KAREN DOVE Comment: suspected NSAID-induced 2014 +/- EtOH: remains on PPI [facility] Genital herpes simplex Active Condition May 26, 2023 Entered By: KAREN DOVE Comment: Uses PRN acyclovir [facility] Heavy tobacco smoker (SNOMED CT 250761033317161) Active Condition Sep 21 Entered By: KAREN DOVE Comment: less then 1 ppd, >40 years (started around 26) [facility] History of Polyp of Colon (SCT 983798150) Active Condition Mar 31, 2023 Entered By: KAREN DOVE Comment: last colonoscopy 06/21/2013 notable for hyperplastic polyp w/ repeat due June 2023 for screening purposes [facility] Idiopathic chronic neuropathy (SNOMED CT 522533076) Active Condition Mar 31, 2023 Entered By: KAREN DOVE Comment: EMG-proven [facility] Insomnia (SCT 806371022) Active Condition [facility] Lumbar spondylosis Active Condition [facility] Macrocytic anemia Active Condition Mar 31, 2023 Entered By: KAREN DOVE Comment: 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 [facility] Osteopenia Active Condition Mar 31 Entered By: KAREN DOVE Comment: per 10/2022 DEXA [facility] Prostate Cancer (SCT 505711650) Active Condition Mar 31, 2023 Entered By: KAREN DOVE Comment: status post radical retroprostatectomy 2013 complicated by incontinence [facility] Recurrent falls Active Condition Mar 31, 2023 Entered By: KAREN DOVE Comment: Likely driven by of his severe lower extremity neuropathy [facility] Vitamin B12 deficiency (non anemic) Active Condition [facility] Vitamin D deficiency Active Condition [facility] Adrenal mass (SNOMED CT 617706505) Inactive Condition 03/31/2023 [facility] Diagnosis: ICD-10-CM F33.1 Major depressive disorder, recurrent, moderate Active Diagnosis [facility] Diagnosis: ICD-10-CM R93.3 Abnormal findings on dx imaging of prt digestive tract Active Diagnosis [facility] Diagnosis: ICD-10-CM Z71.6 Tobacco abuse counseling Active Diagnosis [facility] Diagnosis: ICD-10-CM K22.89 Other specified disease of esophagus Active Diagnosis [facility] Diagnosis: ICD-10-CM Z13.6 Encounter for screening for cardiovascular disorders Active Diagnosis [facility] Diagnosis: ICD-10-CM K31.819 Angiodysplasia of stomach and duodenum without bleeding Active Diagnosis [facility] Diagnosis: ICD-10-CM Z74.09 Other reduced mobility Active Diagnosis [facility] Diagnosis: ICD-10-CM R26.9 Unspecified abnormalities of gait and mobility Active Diagnosis [facility] Diagnosis: ICD-10-CM R26.89 Other abnormalities of gait and mobility Active Diagnosis [facility] Diagnosis: ICD-10-CM G60.3 Idiopathic progressive neuropathy Active Diagnosis [facility] Diagnosis: ICD-10-CM Z71.9 Counseling, unspecified Active Diagnosis [facility] Diagnosis: ICD-10-CM R52 Pain, unspecified Active Diagnosis [facility] Medications Combined list of outpatient medications from Department of Defense and Veterans Affairs facilities.Medications provided include 1) outpatient medications from the last 15 months, and 2) patient-reported medications. Medication Details Route Status Patient Instructions Prescription Expires Prescription Number Last Dispense Date Ordering Provider Order Date Order Qty Source ACYCLOVIR 200MG CAP ACYCLOVI R 200MG CAP Active TAKE TWO CAPSULES BY MOUTH THREE TIMES A DAY FOR HSV FOR HSV Aug 11, 2023 42 Aug 11, 2024 [id number] Aug 19, [address] [facility] ORAL ACTIVE 08/11/2024 [id number] KAREN DOVE [address] [facility] ACYCLOVIR 200MG CAP ACYCLOVI R 200MG CAP Disconti nued TAKE TWO CAPSULES BY MOUTH THREE TIMES A DAY FOR HSV FOR HSV July 14, 2023 42 Aug 13, 2023 [id number] July 15, [address] [facility] ORAL DISCONT INUED 08/13/2023 [id number] 4 KAREN DOVE 2023 42 [place] [facility] ACYCLOVIR 200MG CAP ACYCLOVI R 200MG CAP Disconti nued TAKE TWO CAPSULES BY MOUTH THREE TIMES A DAY HERPES Dec 18, 2022 30 Jan 17, 2023 [id number] Dec 19, 2022 K[facility]EN D[facility] [place] [facility] ORAL DISCONT INUED 01/17/2023 [id number] KAREN DOVE 2022 30 [place] [facility] ACYCLOVIR 200MG CAP ACYCLOVI R 200MG CAP TAKE TWO CAPSULES BY MOUTH THREE TIMES A DAY FOR HSV FOR HSV May 26, 2023 42 Jun 25, 2023 [id number] May 26, 2023 KAREN DOVE [place] ORAL 06/25/2023 [id number] KAREN DOVE 2023 42 [place] [facility] ACYCLOVIR 200MG CAP ACYCLOVI R 200MG CAP TAKE TWO CAPSULES BY MOUTH THREE TIMES A DAY HERPES Mar 28, 2023 60 May 01, 2023 [id number] Apr 01, 2023 KAREN DOVE [place] ORAL 05/01/2023 [id number] KAREN DOVE 2023 60 [place] [facility] ALBUTEROL 90MCG/ACTUA T (CFC-F) INHL,ORAL,8 .5GM DOSE COUNTER ALBUTERO L 90MCG/AC TUAT (CFC-F) INHL,ORA L,8.5GM DOSE COUNTER INHALE 2 PUFFS BY INHALATI ON FOUR TIMES A DAY NEEDED FOR IMMEDIAT E RELIEF OF SHORTNES S OF BREATH *[place]* Jan 29, 2022 2 Jan 30, 2023 [id number] Dec 27, [address] [facility] [facility] RESPIR ATORY (INHAL ATION) 01/30/2023 [id number] 3 KAREN DOVE 2021 2 [place] [facility] ATENOLOL 25MG TAB ATENOLOL 25MG TAB Active TAKE ONE TABLET BY MOUTH EVERY DAY FOR ANXIETY FOR ANXIETY FOR ANXIETY Nov 20, 2022 90 Nov 21, 2023 [id number] A Feb 17, 2023 DRU MAYNARD SE, [facility] 11/21/2023 [id number] JESUS MAYNARD V 2022 90 [place] [facility] ATENOLOL 25MG TAB ATENOLOL 25MG TAB Disconti nued TAKE ONE TABLET BY MOUTH EVERY DAY FOR ANXIETY FOR ANXIETY FOR ANXIETY Apr 02, 2022 90 Apr 03, 2023 [id number] Aug 31, 2022 K[place]EN DOVE [place] [facility] ORAL DISCONT INUED 04/03/2023 [id number] KAREN DOVE 2022 90 [place] [facility] CARBOXYMETH YLCELLULOSE NA 0.5% SOLN,OPH CARBOXYM ETHYLCEL LULOSE NA 0.5% SOLN,OPH INSTILL 1 DROP IN BOTH EYES FOUR TIMES A DAY NEEDED FOR DRY EYES Aug 20, 2022 15 Aug 21, 2023 [id number] A August 04, 2023 [facility] OPHTHA LMIC 08/21/2023 [id number] 4 KAREN DOVE 2022 15 [place] [facility] CELECOXIB 100MG CAP CELECOXI B 100MG CAP Disconti nued TAKE ONE CAPSULE BY MOUTH TWICE A DAY FOR PAIN FOR PAIN Mar 14, 2023 180 Jun 15, 2023 [id number] C Mar 18, [address] [facility] ORAL DISCONT INUED 06/15/2023 [id number] 4 KAREN DOVE [address] [facility] CELECOXIB 100MG CAP CELECOXI B 100MG CAP Disconti nued TAKE ONE CAPSULE BY MOUTH TWICE A DAY FOR PAIN FOR PAIN Nov 22, 2022 180 Feb 23, 2023 [id number] B Nov 26, 2022 [facility] ORAL DISCONT INUED 02/23/2023 [id number] 3 KAREN DOVE 2022 180 [place] [facility] CELECOXIB 100MG CAP CELECOXI B 100MG CAP Disconti nued TAKE ONE CAPSULE BY MOUTH TWICE A DAY FOR PAIN FOR PAIN July 09, 2022 180 Oct 07, 2022 [id number] A July 11, 2022 [facility] ORAL DISCONT INUED 10/07/2022 [id number] KAREN DOVE 2022 180 [place] [facility] CHOLECALCIF SHAKIRA 25MCG (1,000UNIT) TAB CHOLECAL CIFEROL 25MCG (1,000UN IT) TAB TAKE ONE TABLET BY MOUTH EVERY DAY FOR VITAMIN D FOR VITAMIN D Aug 20, 2022 100 Aug 21, 2023 [id number] July 21, 2023 [facility] ORAL 08/21/2023 [id number] MARCIAL DOVEO B 2022 100 [facility] CYANOCOBALA MIN 1000MCG TAB CYANOCOB ALAMIN 1000MCG TAB TAKE ONE TABLET BY MOUTH EVERY DAY FOR B12 FOR B12 Aug 22, 2022 100 Aug 23, 2023 [id number] May 15, 2023 MARCIAL DOVEO B [facility] ORAL 08/23/2023 [id number] MARCIAL DOVEO B 2022 100 [facility] DULOXETINE HCL 20MG CAP,EC DULOXETI NE HCL 20MG CAP,EC Disconti nued TAKE FOUR CAPSULES BY MOUTH EVERY DAY FOR ANXIETY, PAIN, AND DEPRESSI ON FOR ANXIETY Oct 09, 2022 120 Oct 10, 2023 [id number] Nov 18, 2022 DRU MAYNARD SE V [facility] ORAL DISCONT INUED 10/10/2023 [id number] JESUS MAYNARD V 2022 120 [facility] DULOXETINE HCL 30MG CAP,EC DULOXETI NE HCL 30MG CAP,EC Active TAKE THREE CAPSULES BY MOUTH EVERY MORNING FOR DEPRESSI ON FOR DEPRESSI ON July 16, 2023 270 July 16, 2024 [id number] A Sep 04, 2023 DRU MAYNARD SE V [facility] ORAL ACTIVE 07/16/2024 [id number] JESUS MAYNARD V 2023 270 [facility] DULOXETINE HCL 30MG CAP,EC DULOXETI NE HCL 30MG CAP,EC Disconti nued TAKE THREE CAPSULES BY MOUTH EVERY MORNING FOR DEPRESSI ON FOR DEPRESSI ON Mar 15, 2023 270 Mar 15, 2024 [id number] Jun 06, 2023 DRU MAYNARD SE V [facility] ORAL DISCONT INUED 03/15/2024 [id number] JESUS MAYNARD V 2023 270 [facility] DULOXETINE HCL 30MG CAP,EC DULOXETI NE HCL 30MG CAP,EC TAKE THREE CAPSULES BY MOUTH EVERY MORNING FOR DEPRESSI ON FOR DEPRESSI ON Nov 20, 2022 270 Feb 18, 2023 [id number] Nov 20, 2022 [address] MAY[facility]ARD SE [facility] ORAL 02/18/2023 [id number] JESUS MAYNARD V [address] [facility] DULOXETINE HCL 60MG CAP,EC DULOXETI NE HCL 60MG CAP,EC Disconti nued TAKE ONE CAPSULE BY MOUTH EVERY DAY FOR ANXIETY FOR ANXIETY, PAIN, AND DEPRESSI ON FOR ANXIETY Aug 13, 2022 30 Aug 14, 2023 [id number] Sep 03, 2022 DRU MAYNARD SE, [facility] ORAL DISCONT INUED (EDIT) 08/14/2023 [id number] JESUS MAYNARD V [address] [facility] DULOXETINE HCL 60MG CAP,EC DULOXETI NE HCL 60MG CAP,EC Disconti nued TAKE ONE CAPSULE BY MOUTH EVERY DAY FOR ANXIETY FOR ANXIETY, PAIN, AND DEPRESSI ON FOR ANXIETY Jun 03, 2022 30 Jun 04, 2023 [id number] July 09, 2022 DRU MAYNARD SE, V [facility] ORAL DISCONT INUED 06/04/2023 [id number] JESUS MAYNARD V [address] [facility] EPINEPHRINE (EQV-EPI-PE N) 0.3MG/0.3ML INJECTOR EPINEPHR INE (EQV-EPI -PEN) 0.3MG/0. 3ML INJECTOR INJECT 1 PEN DIRECTED ONCE NEEDED FOR ALLERGIC REACTION FOR ALLERGIC REACTION Aug 29, 2022 2 Aug 30, 2023 [id number] August 04, 2023 Gillian MONTIEL [facility] 08/30/2023 [id number] NYDIA MONTIEL [address] [facility] FERROUS GLUCONATE 324MG TAB FERROUS GLUCONAT E 324MG TAB Active TAKE ONE TABLET BY MOUTH EVERY OTHER DAY FOR ANEMIA FOR ANEMIA Apr 01, 2023 100 Apr 01, 2024 [id number] Sep 18, [address] [facility] ORAL ACTIVE 04/01/2024 [id number] KAREN DOVE [address] [facility] FOLIC ACID 1MG TAB FOLIC ACID 1MG TAB Active TAKE ONE TABLET BY MOUTH EVERY DAY Mar 14, 2023 90 Mar 17, 2024 [id number] B Sep 04, 2023 [facility] 03/17/2024 [id number] KAREN DOVE [address] [facility] FOLIC ACID 1MG TAB FOLIC ACID 1MG TAB Disconti nued TAKE ONE TABLET BY MOUTH EVERY DAY Mar 26, 2022 90 Mar 27, 2023 [id number] A Dec 27, 2022 KAREN DOVE [facility] ORAL DISCONT INUED 03/27/2023 [id number] KAREN DOVE [address] [facility] LIDOCAINE 5% PATCH LIDOCAIN E 5% PATCH APPLY 1 PATCH TOPICALL Y EVERY DAY FOR UP TO 12 HOURS FOR PAIN FOR UP TO 12 HOURS FOR PAIN Apr 02, 2022 30 Apr 03, 2023 [id number] Dec 27, 2022 KAREN DOVE [facility] TOPICA L 04/03/2023 [id number] KAREN DOVE [address] [facility] NALOXONE HCL 4MG/SPRAY SOLN,SPRAY, NASAL NALOXONE HCL 4MG/SPRA Y SOLN,SPR AY,NASAL SPRAY 1 DOSE IN ONE NOSTRIL DIRECTED FOR UNRESPON SIVENESS THEN CALL 911 - IF NO CHANGE IN 2-3 MINUTES, GIVE SECOND DOSE IN OPPOSITE NOSTRIL FOR UNRESPON SIVENESS THEN CALL 911 Jun 27, 2022 2 Jun 28, 2023 [id number] Jul 02, 2022 KAREN DOVE [facility] NASAL 06/28/2023 [id number] 3 KAREN DOVE 2022 2 [facility] OLANZAPINE 2.5MG TAB OLANZAPI NE 2.5MG TAB Active TAKE ONE TABLET BY MOUTH AT BEDTIME FOR IRRITABI LITY AND SLEEP PTSD July 16, 2023 90 July 16, 2024 [id number] Aug 29, 2023 DRU MAYNARD SE [facility] [place] [facility] ORAL ACTIVE 07/16/2024 [id number] JESUS MAYNARD V 2023 90 [place] [facility] OLANZAPINE 2.5MG TAB OLANZAPI NE 2.5MG TAB Disconti nued TAKE ONE TABLET BY MOUTH AT BEDTIME FOR IRRITABI LITY AND SLEEP PTSD Mar 12, 2023 90 Mar 12, 2024 [id number] D May 31, 2023 DRU MAYNARD SE [place] [facility] ORAL DISCONT INUED 03/12/2024 [id number] JESUS MAYNARD V 2023 90 [place] [facility] OLANZAPINE 2.5MG TAB OLANZAPI NE 2.5MG TAB Disconti nued TAKE ONE TABLET BY MOUTH AT BEDTIME FOR IRRITABI LITY AND SLEEP PTSD Nov 20, 2022 30 Nov 21, 2023 [id number] C Jan 11, 2023 DRU MAYNARD SE [facility] [place] [facility] ORAL DISCONT INUED 11/21/2023 [id number] JESUS MAYNARD V 2022 30 [place] [facility] OLANZAPINE 2.5MG TAB OLANZAPI NE 2.5MG TAB Disconti nued TAKE ONE TABLET BY MOUTH AT BEDTIME FOR IRRITABI LITY AND SLEEP PTSD Aug 22, 2022 30 Aug 23, 2023 [id number] B Nov 18, 2022 [address] [address] [facility] ORAL DISCONT INUED 08/23/2023 [id number] JESUS MAYNARD V 2022 30 [place] [facility] OLANZAPINE 2.5MG TAB OLANZAPI NE 2.5MG TAB Disconti nued TAKE ONE TABLET BY MOUTH AT BEDTIME FOR IRRITABI LITY AND SLEEP PTSD May 01, 2022 30 May 03, 2023 [id number] July 09, 2022 DRU MAYNARD SE [facility] [place] [facility] ORAL DISCONT INUED 05/03/2023 [id number] JESUS MAYNARD V 2022 30 [place] [facility] OLODATEROL 2.5MCG/TIOT ROPIUM 2.5MCG/ACTU AT INHL,ORAL,6 0D,4GM OLODATER OL 2.5MCG/T IOTROPIU M 2.5MCG/A CTUAT INHL,ORA L,60D,4G M INHALE 2 PUFFS BY INHALATI ON EVERY DAY FOR COPD FOR COPD Aug 20, 2022 1 Aug 21, 2023 [id number] August 04, 2023 K[place]EN D[place] [facility] RESPIR ATORY (INHAL ATION) 08/21/2023 [id number] KAREN DOVE 2022 1 [place] [facility] OMEPRAZOLE 20MG CAP,EC OMEPRAZO LE 20MG CAP,EC Active TAKE TWO CAPSULES BY MOUTH TWICE A DAY ON AN EMPTY STOMACH, AT LEAST 30 MINUTES PRIOR TO A MEAL TO DECREASE STOMACH ACID Jan 06, 2023 360 Jan 08, 2024 [id number] B August 04, 2023 K[place]EN DOVE [place] [facility] ORAL ACTIVE 01/08/2024 [id number] KAREN DOVE [address] [facility] [facility] OMEPRAZOLE 20MG CAP,EC OMEPRAZO LE 20MG CAP,EC Disconti nued TAKE TWO CAPSULES BY MOUTH TWICE A DAY ON AN EMPTY STOMACH, AT LEAST 30 MINUTES PRIOR TO A MEAL TO DECREASE STOMACH ACID Sep 24, 2021 360 Sep 25, 2022 [id number] A Aug 29, [address] [facility] ORAL DISCONT INUED 09/25/2022 [id number] KAREN DOVE [address] [facility] OMEPRAZOLE 40MG CAP,EC OMEPRAZO LE 40MG CAP,EC Active TAKE ONE CAPSULE BY MOUTH TWICE A DAY FOR STOMACH ACID FOR STOMACH ACID Jan 06, 2023 180 Jan 07, 2024 [id number] May 02, 2023 K[place]EN DOVE [place] [facility] ORAL ACTIVE 01/07/2024 [id number] 4 KAREN DOVE [address] [facility] ONDANSETRON HCL 4MG TAB ONDANSET FAITH HCL 4MG TAB Active TAKE ONE TABLET BY MOUTH EVERY DAY NEEDED FOR NAUSEA FOR NAUSEA Sep 09, 2023 30 Sep 09, 2024 [id number] Sep 10, 2023 [facility] ORAL ACTIVE 09/09/2024 [id number] KAREN DOVE 2023 30 [place] [facility] ONDANSETRON HCL 4MG TAB ONDANSET FAITH HCL 4MG TAB Disconti nued TAKE ONE TABLET BY MOUTH EVERY DAY NEEDED FOR NAUSEA FOR NAUSEA May 13, 2023 30 May 13, 2024 [id number] Jun 19, 2023 KAREN DOVE [place] [facility] ORAL DISCONT INUED 05/13/2024 [id number] KAREN DOVE 2023 30 [place] [facility] OXYCODONE HCL 5MG TAB OXYCODON E HCL 5MG TAB Disconti nued TAKE ONE TABLET BY MOUTH EVERY 4 HOURS NEEDED FOR PAIN FOR PAIN July 15, 2022 56 Aug 14, 2022 [id number] July 16, 2022 KAREN DOVE [place] [facility] ORAL DISCONT INUED 08/14/2022 [id number] KAREN DOVE 2022 56 [place] [facility] OXYCODONE HCL 5MG TAB OXYCODON E HCL 5MG TAB Disconti nued TAKE ONE TABLET BY MOUTH EVERY 4 HOURS NEEDED FOR PAIN FOR PAIN Jun 27, 2022 84 July 27, 2022 [id number] Jun 27, 2022 KAREN DOVE [place] [facility] ORAL DISCONT INUED 07/27/2022 [id number] KAREN DOVE 2022 84 [place] [facility] PYRIDOXINE HCL 50MG TAB PYRIDOXI NE HCL 50MG TAB TAKE 1/2 TABLET BY MOUTH EVERY DAY Apr 02, 2022 100 Apr 03, 2023 [id number] A Dec 27, 2022 KAREN DOVE [place] [facility] ORAL 04/03/2023 [id number] KAREN DOVE 2022 100 [place] [facility] SILDENAFIL CITRATE 100MG TAB SILDENAF IL CITRATE 100MG TAB Active TAKE ONE TABLET BY MOUTH EVERY DAY NEEDED 1 HOUR BEFORE ANTICIPA YAKOV SEXUAL ACTIVITY . FOR ERECTION S. Jan 28, 2023 6 Jan 29, 2024 [id number] August 04, 2023 KAREN DOVE [place] [facility] ORAL ACTIVE 01/29/2024 [id number] 4 KAREN DOVE 2022 6 [place] [facility] SILDENAFIL CITRATE 100MG TAB SILDENAF IL CITRATE 100MG TAB Disconti nued TAKE ONE TABLET BY MOUTH EVERY DAY NEEDED 1 HOUR BEFORE ANTICIPA YAKOV SEXUAL ACTIVITY . FOR ERECTION S. Apr 02, 2022 6 Apr 03, 2023 [id number] J Nov 18, [address] [facility]AL DISCONT INUED 04/03/2023 [id number] 3 KAREN DOVE [address] [facility] THIAMINE 100MG TAB THIAMINE 100MG TAB Active TAKE ONE TABLET BY MOUTH EVERY DAY Apr 01, 2023 100 Apr 01, 2024 [id number] B Sep 18, [address] [facility] 04/01/2024 [id number] 4 KAREN DOVE [address] [facility] THIAMINE 100MG TAB THIAMINE 100MG TAB Disconti nued TAKE ONE TABLET BY MOUTH EVERY DAY Apr 02, 2022 100 Apr 03, 2023 [id number] Dec 29, [address] [facility] ORAL DISCONT INUED 04/03/2023 [id number] KAREN DOVE [address] [facility] TRAZODONE HCL 150MG TAB TRAZODON E HCL 150MG TAB Active: Susp TAKE ONE TABLET BY MOUTH AT BEDTIME FOR SLEEP FOR SLEEP July 16, 2023 90 July 16, 2024 [id number] B Oct 15, 2023 DRU MAYNARD SE[facility] ORAL SUSPEND ED 07/16/2024 [id number] JESUS MAYNARD V 2023 90 [facility] TRAZODONE HCL 150MG TAB TRAZODON E HCL 150MG TAB Disconti nued TAKE ONE TABLET BY MOUTH AT BEDTIME FOR SLEEP FOR SLEEP Mar 12, 2023 90 Mar 12, 2024 [id number] A July 17, 2023 [facility] MAY[facility]ARD SE [facility] ORAL DISCONT INUED 03/12/2024 [id number] JESUS MAYNARD V 2023 90 [facility] TRAZODONE HCL 150MG TAB TRAZODON E HCL 150MG TAB Disconti nued TAKE ONE TABLET BY MOUTH AT BEDTIME FOR SLEEP FOR SLEEP Jan 06, 2023 90 Apr 06, 2023 [id number] Feb 07, 2023 [facility] MAY[facility]ARD [facility] ORAL DISCONT INUED 04/06/2023 [id number] JESUS MAYNARD V 2022 90 [facility] TRAZODONE HCL 50MG TAB TRAZODON E HCL 50MG TAB Disconti nued TAKE THREE TABLETS BY MOUTH AT BEDTIME Nov 18, 2022 270 Nov 19, 2023 [id number] A Nov 19, 2022 DRU MAYNARD SE [facility] ORAL DISCONT INUED 11/19/2023 [id number] JESUS MAYNARD V 2022 270 [facility] TRAZODONE HCL 50MG TAB TRAZODON E HCL 50MG TAB Disconti nued TAKE THREE TABLETS BY MOUTH AT BEDTIME Sep 26, 2021 270 Sep 27, 2022 [id number] Jul 03, 2022 [facility]U MAY[facility]ARD SE [facility] ORAL DISCONT INUED 09/27/2022 [id number] JESUS MAYNARD V 2021 270 [facility] Allergies, Adverse Reactions, Alerts Combined list of allergies from Department of Defense and Veterans Affairs facilities. It does not include entries that were removed or entered in error. Substance Category Reaction Severity Reaction type Status Date Reported Comments Source [facility] Propensity to adverse reaction (finding) Swelling, Sweating, Discolorati on of skin active 0 [facility] BUTORPHANOL Propensity to adverse reactions to drug (finding) Hallucinati ons active 0 [facility] Immunizations Combined list of available immunizations from the Department of Defense and Veterans Affairs facilities. Immunization Series Date Given Administered By Site Reaction Lot Number CVX Code Drug Substance Abuse Specialist Status Comments Source ZOSTER RECOMBINANT 2 2021 187 complet ed [facility] INFLUENZA, INJECTABLE, QUADRIVALENT, PRESERVATIVE FREE 2020 150 complet ed [facility] PNEUMOCOCCAL POLYSACCHARID E PPV23 2019 33 complet ed MerckShar p [id number] [facility] ZOSTER RECOMBINANT 1 2019 187 complet ed [facility] PNEUMOCOCCAL CONJUGATE PCV 13 2018 133 complet ed 000 [facility] TDAP 2016 115 complet ed [facility] INFLUENZA, SEASONAL, INJECTABLE, PRESERVATIVE FREE 2014 140 complet ed [facility] INFLUENZA, UNSPECIFIED FORMULATION 2013 88 complet ed [facility] TDAP 2013 115 complet ed Glaxo nogueira joe,5SR 2L, [facility] INFLUENZA, UNSPECIFIED FORMULATION 2011 88 complet ed [facility] ZOSTER LIVE 2011 121 complet ed [facility] ZOSTER LIVE 2011 121 complet ed [facility] TDAP 2011 115 complet ed [facility] PNEUMOCOCCAL, UNSPECIFIED FORMULATION 2009 109 complet ed sanofi pasteur,u [id number]/18 [facility] TD(ADULT) UNSPECIFIED FORMULATION 2003 139 complet ed [facility] DT (PEDIATRIC) 1985 28 complet ed [facility] Results Combined list of recent chemistry, [...] Aug 20, 2022 09:56 AM Reporting Lab: [facility] [id number] Performing Lab: [facility] [id number] [facility] VIT D 25-OH,TOT AL 25-HYDROXYV ITAMIN D3 [MASS/VOLUM E] IN SERUM OR PLASMA 36 ng/mL 12 - 50 04/01 Specimen Type: SERUM No comment entered. Ordering Provider: KAREN DOVE Report Released Date/Time: Aug 20, 2022 09:56 AM Reporting Lab: [facility] [address] Performing Lab: [facility] [address] [facility] FOLATE FOLATE [MASS/VOLUM E] IN SERUM OR PLASMA 13.6 ng/mL 7.0 04/01 Specimen Type: SERUM No comment entered. Ordering Provider: KAREN DOVE Report Released Date/Time: Aug 20, 2022 09:56 AM Reporting Lab: [facility] [address] Performing Lab: [facility] [address] [facility] CBC LEUKOCYTES [#/VOLUME] IN BLOOD BY AUTOMATED COUNT 6.26 10*3/u L 4.0 - 11.0 04/01 Specimen Type: BLOOD No comment entered. Ordering Provider: KAREN DOVE Report Released Date/Time: Aug 20, 2022 09:56 AM Reporting Lab: [facility] [address] Performing Lab: [facility] [address] [place] [facility] CBC ERYTHROCYTE S [#/VOLUME] IN BLOOD BY AUTOMATED COUNT 3.02 10*6/u L 4.6 - 6.2 04/01 L Specimen Type: BLOOD No comment entered. Ordering Provider: KAREN DOVE Report Released Date/Time: Aug 20, 2022 09:56 AM Reporting Lab: [facility] [address] Performing Lab: [facility] [address] [place] [facility] CBC HEMOGLOBIN [MASS/VOLUM E] IN BLOOD 8.9 g/dL 13.5 - 17.9 01/23 /2024 L Specimen Type: BLOOD No comment entered. Ordering Provider: KAREN DOVE Report Released Date/Time: Aug 20, 2022 09:56 AM Reporting Lab: [facility] [address] Performing Lab: [facility] [address] [place] [facility] CBC HEMATOCRIT [VOLUME FRACTION] OF BLOOD BY AUTOMATED COUNT 28.2 41 - 54 04/01 L Specimen Type: BLOOD No comment entered. Ordering Provider: KAREN DOVE Report Released Date/Time: Aug 20, 2022 09:56 AM Reporting Lab: [facility] [address] Performing Lab: [facility] [address] [place] [facility] CBC MCV [ENTITIC VOLUME] BY AUTOMATED COUNT 93.4 fL 80 - 100 04/01 Specimen Type: BLOOD No comment entered. Ordering Provider: KAREN DOVE Report Released Date/Time: Aug 20, 2022 09:56 AM Reporting Lab: [facility] [address] Performing Lab: [facility] [address] [place] [facility] CBC MCH [ENTITIC MASS] BY AUTOMATED COUNT 29.5 pg 27 - 33 04/01 Specimen Type: BLOOD No comment entered. Ordering Provider: KAREN DOVE Report Released Date/Time: Aug 20, 2022 09:56 AM Reporting Lab: [facility] [address] Performing Lab: [facility] [address] [place] [facility] CBC MCHC [MASS/VOLUM E] BY AUTOMATED COUNT 31.6 g/dL 32.0 - 37.5 04/01 L Specimen Type: BLOOD No comment entered. Ordering Provider: KAREN DOVE Report Released Date/Time: Aug 20, 2022 09:56 AM Reporting Lab: [facility] [address] Performing Lab: [facility] [address] [place] [facility] CBC PLATELETS [#/VOLUME] IN BLOOD BY AUTOMATED COUNT 189 10*3/u L 150 - 400 01/23 /2024 Specimen Type: BLOOD No comment entered. Ordering Provider: KAREN DOVE Report Released Date/Time: Aug 20, 2022 09:56 AM Reporting Lab: [facility] [address] Performing Lab: [facility] [address] [place] [facility] CBC PLATELET MEAN VOLUME [ENTITIC VOLUME] IN BLOOD BY AUTOMATED COUNT 10.3 fL 7.4 - 10.4 04/01 Specimen Type: BLOOD No comment entered. Ordering Provider: KAREN DOVE Report Released Date/Time: Aug 20, 2022 09:56 AM Reporting Lab: [facility] [address] Performing Lab: [facility] [address] [facility] IS [facility] CBC ERYTHROCYTE DISTRIBUTIO N WIDTH [RATIO] BY AUTOMATED COUNT 15.9 11.5 - 14.5 04/01 H Specimen Type: BLOOD No comment entered. Ordering Provider: KAREN DOVE Report Released Date/Time: Aug 20, 2022 09:56 AM Reporting Lab: [facility] [address] Performing Lab: [facility] [address] [facility] COMPREHEN SIVE METABOLIC PANEL+MG CREATININE [MASS/VOLUM E] IN SERUM OR PLASMA 1.4 mg/dL 0.7 - 1.2 04/01 H Specimen Type: PLASMA No comment entered. Ordering Provider: AKREN DOVE Report Released Date/Time: Aug 20, 2022 09:56 AM Reporting Lab: [facility] [address] Performing Lab: [facility] [address] [place] [facility] COMPREHEN SIVE METABOLIC PANEL+MG UREA NITROGEN [MASS/VOLUM E] IN SERUM OR PLASMA 16 mg/dL 8 - 26 04/01 Specimen Type: PLASMA No comment entered. Ordering Provider: KAREN DOVE Report Released Date/Time: Aug 20, 2022 09:56 AM Reporting Lab: [facility] [address] Performing Lab: [facility] [address] [place] [facility] COMPREHEN SIVE METABOLIC PANEL+MG GLUCOSE [MASS/VOLUM E] IN SERUM OR PLASMA 103 mg/dL 70 - 100 04/01 H Specimen Type: PLASMA No comment entered. Ordering Provider: KAREN DOVE Report Released Date/Time: Aug 20, 2022 09:56 AM Reporting Lab: [facility] [address] Performing Lab: [facility] [address] [place] [facility] COMPREHEN SIVE METABOLIC PANEL+MG SODIUM [MOLES/VOLU ME] IN SERUM OR PLASMA 138 mmol/L 136 - 145 04/01 Specimen Type: PLASMA No comment entered. Ordering Provider: KAREN DOVE Report Released Date/Time: Aug 20, 2022 09:56 AM Reporting Lab: [facility] [address] Performing Lab: [facility] [address] [place] [facility] COMPREHEN SIVE METABOLIC PANEL+MG POTASSIUM [MOLES/VOLU ME] IN SERUM OR PLASMA 3.4 mmol/L 3.5 - 5.1 04/01 L Specimen Type: PLASMA No comment entered. Ordering Provider: KAREN DOVE Report Released Date/Time: Aug 20, 2022 09:56 AM Reporting Lab: [facility] [address] Performing Lab: [facility] [address] [place] [facility] COMPREHEN SIVE METABOLIC PANEL+MG CHLORIDE [MOLES/VOLU ME] IN SERUM OR PLASMA 105 mmol/L 98 - 107 04/01 Specimen Type: PLASMA No comment entered. Ordering Provider: KAREN DOVE Report Released Date/Time: Aug 20, 2022 09:56 AM Reporting Lab: [facility] [address] Performing Lab: [facility] [address] [place] [facility] COMPREHEN SIVE METABOLIC PANEL+MG CARBON DIOXIDE, TOTAL [MOLES/VOLU ME] IN SERUM OR PLASMA 26 mmol/L 22 - 29 04/01 Specimen Type: PLASMA No comment entered. Ordering Provider: KAREN DOVE Report Released Date/Time: Aug 20, 2022 09:56 AM Reporting Lab: [facility] [address] Performing Lab: [facility] [address] [place] [facility] COMPREHEN SIVE METABOLIC PANEL+MG CALCIUM [MASS/VOLUM E] IN SERUM OR PLASMA 8.5 mg/dL 8.4 - 10.2 04/01 Specimen Type: PLASMA No comment entered. Ordering Provider: KAREN DOVE Report Released Date/Time: Aug 20, 2022 09:56 AM Reporting Lab: [facility] [address] Performing Lab: [facility] [address] [place] [facility] COMPREHEN SIVE METABOLIC PANEL+MG PROTEIN [MASS/VOLUM E] IN SERUM OR PLASMA 6.3 g/dL 6.0 - 8.3 04/01 Specimen Type: PLASMA No comment entered. Ordering Provider: KAREN DOVE Report Released Date/Time: Aug 20, 2022 09:56 AM Reporting Lab: [facility] [address] Performing Lab: [facility] [address] [place] [facility] COMPREHEN SIVE METABOLIC PANEL+MG ALBUMIN [MASS/VOLUM E] IN SERUM OR PLASMA 3.3 g/dL 3.5 - 5.2 04/01 L Specimen Type: PLASMA No comment entered. Ordering Provider: KAREN DOVE Report Released Date/Time: Aug 20, 2022 09:56 AM Reporting Lab: [facility] [address] Performing Lab: [facility] [address] [place] [facility] COMPREHEN SIVE METABOLIC PANEL+MG BILIRUBIN.T OTAL [MASS/VOLUM E] IN SERUM OR PLASMA 0.3 mg/dL 0.2 - 1.2 04/01 Specimen Type: PLASMA No comment entered. Ordering Provider: KAREN DOVE Report Released Date/Time: Aug 20, 2022 09:56 AM Reporting Lab: [facility] [address] Performing Lab: [facility] [address] [place] [facility] COMPREHEN SIVE METABOLIC PANEL+MG MAGNESIUM [MASS/VOLUM E] IN SERUM OR PLASMA 1.8 mg/dL 1.6 - 2.6 04/01 Specimen Type: PLASMA No comment entered. Ordering Provider: KAREN DOVE Report Released Date/Time: Aug 20, 2022 09:56 AM Reporting Lab: [facility] [address] Performing Lab: [facility] [address] [place] [facility] COMPREHEN SIVE METABOLIC PANEL+MG ANION GAP IN SERUM OR PLASMA 7 mmol/L 5 - 15 04/01 Specimen Type: PLASMA No comment entered. Ordering Provider: KAREN DOVE Report Released Date/Time: Aug 20, 2022 09:56 AM Reporting Lab: [facility] [address] Performing Lab: [facility] [address] [place] [facility] COMPREHEN SIVE METABOLIC PANEL+MG ALKALINE PHOSPHATASE [ENZYMATIC ACTIVITY/VO LUME] IN SERUM OR PLASMA 93 U/L 40 - 150 04/01 Specimen Type: PLASMA No comment entered. Ordering Provider: KAREN DOVE Report Released Date/Time: Aug 20, 2022 09:56 AM Reporting Lab: [facility] [address] Performing Lab: [facility] [address] [place] [facility] COMPREHEN SIVE METABOLIC PANEL+MG ALANINE AMINOTRANSF ERASE [ENZYMATIC ACTIVITY/VO LUME] IN SERUM OR PLASMA 10 U/L <55 - 55 04/01 Specimen Type: PLASMA No comment entered. Ordering Provider: KAREN DOVE Report Released Date/Time: Aug 20, 2022 09:56 AM Reporting Lab: [facility] [address] Performing Lab: [facility] [address] [place] [facility] COMPREHEN SIVE METABOLIC PANEL+MG ASPARTATE AMINOTRANSF ERASE [ENZYMATIC ACTIVITY/VO LUME] IN SERUM OR PLASMA 24 U/L <34 - 34 04/01 Specimen Type: PLASMA No comment entered. Ordering Provider: KAREN DOVE Report Released Date/Time: Aug 20, 2022 09:56 AM Reporting Lab: [facility] [address] Performing Lab: [facility] [address] [place] [facility] COMPREHEN SIVE METABOLIC PANEL+MG GLOMERULAR FILTRATION RATE/1.73 SQ M.PREDICTED [VOLUME RATE/AREA] IN SERUM, PLASMA OR BLOOD BY CREATININE- BASED FORMULA (CKD-EPI 2020) 54 60 04/01 L Specimen Type: PLASMA No comment entered. Ordering Provider: KAREN DOVE Report Released Date/Time: Aug 20, 2022 09:56 AM Reporting Lab: [facility] [address] Performing Lab: [facility] [address] [place] [facility] IRON GROUP IRON [MASS/VOLUM E] IN SERUM OR PLASMA 35 ug/dL 65 - 175 04/01 L Specimen Type: SERUM Comment: Specimen received is PLASMA. Ordering Provider: KAREN DOVE Report Released Date/Time: Apr 01, 2023 10:44 AM Reporting Lab: [facility] [address] Performing Lab: [facility] [address] [place] [facility] IRON GROUP IRON BINDING CAPACITY [MASS/VOLUM E] IN SERUM OR PLASMA 381 ug/dL 250 - 425 04/01 Specimen Type: SERUM Comment: Specimen received is PLASMA. Ordering Provider: KAREN DOVE Report Released Date/Time: Apr 01, 2023 10:44 AM Reporting Lab: [facility] [address] Performing Lab: [facility] [address] [place] [facility] IRON GROUP FERRITIN [MASS/VOLUM E] IN SERUM OR PLASMA 16.8 ng/mL 21.8 - 274.7 04/01 L Specimen Type: SERUM Comment: Specimen received is PLASMA. Ordering Provider: KAREN DOVE Report Released Date/Time: Apr 01, 2023 10:44 AM Reporting Lab: [facility] [address] Performing Lab: [facility] [address] [place] [facility] IRON GROUP IRON SATURATION 9 20 - 50 04/01 L Specimen Type: SERUM Comment: Specimen received is PLASMA. Ordering Provider: KAREN DOVE Report Released Date/Time: Apr 01, 2023 10:44 AM Reporting Lab: [facility] [address] Performing Lab: [facility] [address] [place] [facility] IRON GROUP TRANSFERRIN [MASS/VOLUM E] IN SERUM OR PLASMA 305 mg/dL 163 - 382 04/01 Specimen Type: SERUM Comment: Specimen received is PLASMA. Ordering Provider: KAREN DOVE Report Released Date/Time: Apr 01, 2023 10:44 AM Reporting Lab: [facility] [address] Performing Lab: [facility] [address] [place] [facility] RETICS RETICULOCYT ES/100 ERYTHROCYTE S IN BLOOD BY AUTOMATED COUNT 0.0416 10*6/u L 0.0300 - 0.1000 04/01 Specimen Type: BLOOD Comment: Specimen received is PLASMA. Ordering Provider: KAREN DOVE Report Released Date/Time: Apr 01, 2023 10:44 AM Reporting Lab: [facility] [address] Performing Lab: [facility] [address] [place] [facility] RETICS RETICULOCYT ES/100 ERYTHROCYTE S IN BLOOD BY AUTOMATED COUNT 1.39 0.6 - 2.0 04/01 Specimen Type: BLOOD Comment: Specimen received is PLASMA. Ordering Provider: KAREN DOVE Report Released Date/Time: Apr 01, 2023 10:44 AM Reporting Lab: [facility] [address] Performing Lab: [facility] [address] [place] [facility] RETICS IMMATURE RETICULOCYT ES/RETICULO CYTES.TOTAL IN BLOOD 16.6 1.0 - 14.0 04/01 H Specimen Type: BLOOD Comment: Specimen received is PLASMA. Ordering Provider: KAREN DOVE Report Released Date/Time: Apr 01, 2023 10:44 AM Reporting Lab: [facility] [address] Performing Lab: [facility] [address] [place] [facility] RETICS RETICULOCYT E PRODUCTION INDEX 25.4 pg 28.2 - 36.6 04/01 L Specimen Type: BLOOD Comment: Specimen received is PLASMA. Ordering Provider: KAREN DOVE Report Released Date/Time: Apr 01, 2023 10:44 AM Reporting Lab: [facility] [address] Performing Lab: [facility] [address] [place] [facility] PTH-N-TAC T PARATHYRIN. INTACT [MASS/VOLUM E] IN SERUM OR PLASMA 62.0 pg/mL 8.7 - 77.1 08/20 Specimen Type: PLASMA No comment entered. Ordering Provider: KAREN DOVE Report Released Date/Time: Aug 19, 2022 04:38 PM Reporting Lab: [facility] [address] Performing Lab: [facility] [address] [facility] B 12 COBALAMIN (VITAMIN B12) [MASS/VOLUM E] IN SERUM OR PLASMA 213 pg/mL 213 - 816 08/20 Specimen Type: SERUM No comment entered. Ordering Provider: KAREN DOVE Report Released Date/Time: Aug 19, 2022 04:38 PM Reporting Lab: [facility] [address] Performing Lab: [facility] [address] [facility] FOLATE FOLATE [MASS/VOLUM E] IN SERUM OR PLASMA 16.5 ng/mL 08/20 Specimen Type: SERUM No comment entered. Ordering Provider: KAREN DOVE Report Released Date/Time: Aug 19, 2022 04:38 PM Reporting Lab: [facility] [address] Performing Lab: [facility] [address] [facility] Vital Signs Combined list of inpatient [...] ADM Date DC Date Status Disposition Source [facility] OFFICE O/P EST HI 40-54 MIN [id number] Diagnos is: ICD-10- CM R52 Pain, unspeci fied
KAREN DOVE 04/02 [place] [facility] [place] [facility] Outpatient Encounter [id number] 04/03 [place] [facility] [place] [facility] Outpatient Encounter [id number] Diagnos is: ICD-10- CM R26.9 Unspeci fied abnorma lities of gait and mobilit y
SEBASTIEN EL M 04/08 [place] [facility] [place] [facility] Outpatient Encounter [id number] 04/08 [place] [facility] [place] [facility] Outpatient Encounter [id number] 04/08 [place] [facility] [place] [facility] Outpatient Encounter [id number] 04/09 [place] [facility] [place] [facility] Outpatient Encounter [id number] 04/23 [place] [facility] [place] [facility] HC PRO PHONE CALL 21-30 MIN [id number] Diagnos is: ICD-10- CM Z71.9 Product Safety Professional ing, unspeci fied
KAREN DOVE 04/25 [place] [facility] [place] [facility] Outpatient Encounter [id number] Lauren MORGAN 06/23 [place] [facility] [place] [facility] Outpatient Encounter [id number] MARCIE [place] 06/24 [place] [facility] [place] [facility] Outpatient Encounter [id number] 06/25 [place] [facility] [place] [facility] Outpatient Encounter [id number] 06/27 [place] [facility] [place] [facility] Outpatient Encounter [id number] 07/03 [place] [facility] [place] [facility] Outpatient Encounter [id number] 07/08 [place] [facility] [place] [facility] Outpatient Encounter [id number] 07/11 [place] [facility] [place] [facility] Outpatient Encounter [id number] 07/15 [place] [facility] [place] [facility] Outpatient Encounter [id number] 07/15 [place] [facility] [place] [facility] Outpatient Encounter [id number] 07/18 [place] [facility] [place] [facility] Outpatient Encounter [id number] 08/02 [place] [facility] [place] [facility] OT EVAL LOW COMPLEX 30 MIN [id number] Diagnos is: ICD-10- CM G60.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<br/ > SAROJ NOGUEIRA 08/13 [place] [facility] [place] [facility] Outpatient Encounter [id number] Rosa HEWITT 08/13 [place] [facility] [place] [facility] Outpatient Encounter [id number] NAHOMY BULLOKC 08/13 [place] [facility] [place] [facility] Outpatient Encounter [id number] NAHOMY BULLOCK 08/13 [place] [facility] [place] [facility] Outpatient Encounter [id number] 08/20 [place] [facility] [place] [facility] OFFICE O/P EST HI 40-54 MIN [id number] Diagnos is: ICD-10- CM Z71.6 Tobacco abuse general counsel ing<br/ > KAREN DOVE 08/20 [place] [facility] [place] [facility] Outpatient Encounter [id number] 08/20 [place] [facility] [place] [facility] Outpatient Encounter [id number] KAREN DOVE 08/21 [place] [facility] [place] [facility] Outpatient Encounter [id number] 08/27 [place] [facility] [place] [facility] Outpatient Encounter [id number] 08/28 [place] [facility] [place] [facility] Outpatient Encounter [id number] SHIRA PISANO 08/[address] [facility] [place] [facility] SELF CARE MNGMENT TRAINING [id number] Diagnos is: ICD-10- CM R26.89 Other abnorma lities of gait and mobilit y
SA ERASTO FOSTER 08/30 [place] [facility] [place] [facility] Outpatient Encounter [id number] 09/18 [place] [facility] [place] [facility] Outpatient Encounter [id number] 10/02 [place] [facility] [place] [facility] Outpatient Encounter [id number] Rosa HEWITT L 10/[address] [facility] [place] [facility] PRO PHONE CALL 11-20 MIN [id number] Diagnos is: ICD-10- CM F33.1 Major depress silke disorde r, recurre nt, moderat e
Rosa HEWITTEN L 10/07 [place] [facility] [place] [facility] Outpatient Encounter [id number] NAHOMY BULLOCK 10/[address] [facility] [place] [facility] Outpatient Encounter [id number] NAHOMY BULLOCK 10/10 [place] [facility] [place] [facility] Outpatient Encounter [id number] 10/16 [place] [facility] [place] [facility] Outpatient Encounter [id number] Diagnos is: ICD-10- CM R26.9 Unspeci fied abnorma lities of gait and mobilit y
NIKKONYDIASalome Aguilar 10/21 [place] [facility] [place] [facility] Outpatient Encounter [id number] 10/21 [place] [facility] [place] [facility] Outpatient Encounter [id number] 10/21 [place] [facility] [place] [facility] Outpatient Encounter [id number] [place] Ocasio Sadaf 10/24 [place] [facility] [place] [facility] Outpatient Encounter [id number] 10/[address] [facility] [place] [facility] WHEELCHAIR MNGMENT TRAINING [id number] Diagnos is: ICD-10- CM Z74.09 Other reduced mobilit y
SAROJ NOGUEIRA 11/[address] [place] [facility] Outpatient Encounter [id number] 11/[address] [facility] [place] [facility] Outpatient Encounter [id number] 11/[address] [facility] [place] [facility] OFFICE O/P EST MOD 30-39 MIN [id number] Diagnos is: ICD-10- CM Z71.6 Tobacco abuse general counsel ing<br/ > CAROLA MAYNARD V 11/[address] [facility] [place] [facility] Outpatient Encounter [id number] HERON TAVAREZ 12/[address] [facility] [place] [facility] Outpatient Encounter [id number] PRABHA ARDON 12/10 [place] [facility] [place] [facility] Outpatient Encounter [id number] 12/[address] [facility] [place] [facility] Outpatient Encounter [id number] 12/18 [place] [facility] [place] [facility] Outpatient Encounter [id number] 12/30 [place] [facility] [place] [facility] Outpatient Encounter [id number] RAGHAVDAISYSandraPRABHA 01/06 [place] [facility] [place] [facility] Outpatient Encounter [id number] Rosa HEWITT L 01/16 [place] [facility] [place] [facility] Outpatient Encounter [id number] Rosa HEWITT L 01/23 [place] [facility] [place] [facility] Outpatient Encounter [id number] 02/04 [place] [facility] [place] [facility] Out[facility] Encounter [id number] 03/04 [place] [facility] [place] [facility] Out[facility] Encounter [id number] 03/05 [place] [facility] [place] [facility] OFF[facility] O/P EST MOD 30 MIN [id number] Diagnos is: ICD-10- CM Z71.6 Tobacco abuse general counsel ing<br/ > CAROLA MAYNARD V 03/12 [place] [facility] [place] [facility] Out[facility] Encounter [id number] 03/14 [place] [facility] [place] [facility] Out[place] Encounter [id number] ABBY XIE 03/25 [place] [facility] [place] [facility] OFF[facility] O/P EST HI 40 MIN [id number] Diagnos is: ICD-10- CM Z71.6 Tobacco abuse general counsel ing<br/ > KAREN DOVE 04/01 [place] [facility] [place] [facility] Out[place] Encounter [id number] 04/03 [place] [facility] [place] [facility] Out[place] Encounter [id number] 04/04 [place] [facility] [place] [facility] Outpatient Encounter [id number] 04/07 [place] [facility] [place] [facility] MOD SEDAT ENDO SERVICE >5YRS [id number] Diagnos is: ICD-10- CM 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
EARLE TURNER ER KHALID 04/08 [place] [facility] [place] [facility] Outpatient Encounter [id number] 04/08 [place] [facility] [facility] [place] [facility] Outpatient Encounter [id number] ANDERSON ZAMORA 04/09 [place] [facility] [place] [facility] Outpatient Encounter [id number] 04/11 [place] [facility] [place] [facility] Outpatient Encounter [id number] 04/15 [place] [facility] [place] [facility] Outpatient Encounter [id number] 04/21 [place] [facility] [place] [facility] Outpatient Encounter [id number] 05/01 [place] [facility] [place] [facility] Outpatient Encounter [id number] NAHOMY BULLOCK 05/01 [place] [facility] [place] [facility] Outpatient Encounter [id number] DENI THAKKAR 05/07 [place] [facility] [place] [facility] Outpatient Encounter [id number] 05/14 [place] [facility] [place] [facility] Outpatient Encounter [id number] NAHOMY BULLOCK 05/21 [place] [facility] [place] [facility] Outpatient Encounter [id number] 05/22 [place] [facility] [place] [facility] Outpatient Encounter [id number] 05/26 [place] [facility] [place] [facility] Outpatient Encounter [id number] 06/02 [place] [facility] [place] [facility] Outpatient Encounter [id number] 06/03 [place] [facility] [place] [facility] ELECTROCAR DIOGRAM REPORT [id number] Diagnos is: ICD-10- CM Z13.6 Encount er for screeni ng for cardiov ascular disorde rs
JAYSON HART RMA B 06/[address] [facility] [place] [facility] ENDOSCOPIC US EXAM ESOPH [id number] Diagnos is: ICD-10- CM K22.89 Other specifi ed disease of esophag us
BILAL,MOHA MMAD 06/[address] [facility] [place] [facility] OFFICE O/P EST HI 40 MIN [id number] Diagnos is: ICD-10- CM Z71.6 Tobacco abuse general counsel ing<br/ > Gillian ELIAS 06/03 [facility] [place] [facility] Outpatient Encounter [id number] Gillian ELIAS 06/[address] [facility] [place] [facility] Outpatient Encounter [id number] 06/03 [place] [facility] [place] [facility] Outpatient Encounter [id number] 06/[address] [facility] OFF/OP EST MAY X REQ PHY/QHP [id number] Diagnos is: ICD-10- CM R93.3 Abnorma l finding s on dx imaging of prt digesti ve tract<b r/> Gillian ELIAS RUBINA G 06/03 [place] [facility] [place] [facility] Outpatient Encounter [id number] 06/04 [place] [facility] [place] [facility] Outpatient Encounter [id number] 06/08 [place] [facility] [place] [facility] QNHP OL DIG ASSMT&MGMT 5-10 [id number] Diagnos is: ICD-10- CM F33.1 Major depress silke disorde r, recurre nt, moderat e
CHAPO, ELVIN A 06/11 [place] [facility] [place] [facility] Outpatient Encounter [id number] Rosa HEWITT 06/19 [place] [facility] [place] [facility] Outpatient Encounter [id number] 06/22 [place] [facility] [place] [facility] Outpatient Encounter [id number] 06/26 [place] [facility] [place] [facility] Outpatient Encounter [id number] 07/[address] [place] [facility] PRO PHONE CALL 5-10 MIN [id number] Diagnos is: ICD-10- CM F33.1 Major depress silke disorde r, recurre nt, moderat e
CAROLA MAYNARD V 07/15 [place] [facility] [place] [facility] Outpatient Encounter [id number] 07/15 [place] [facility] [place] [facility] Outpatient Encounter [id number] 07/16 [place] [facility] [place] [facility] Outpatient Encounter [id number] 07/24 [place] [facility] [place] [facility] Outpatient Encounter [id number] Sandra AUGUSTE 08/[address] [facility] [place] [facility] Outpatient Encounter [id number] MANUELITOHECTOR LEMOSN ICA E 08/10 [place] [facility] [place] [facility] Outpatient Encounter [id number] 08/24 [place] [facility] [place] [facility] Outpatient Encounter [id number] 08/28 [place] [facility] [place] [facility] Outpatient Encounter [id number] 08/29 [place] [facility] [place] [facility] Outpatient Encounter [id number] 09/16 [place] [facility] [place] [facility] Outpatient Encounter [id number] KAREN DOVE 09/[address] Social History Combined list of available smoking, tobacco, and other social history from Department of Defense and Veterans Affairs facilities. Social History Type Response Date Comment Sourc e Tobacco smoking status NHIS VA-TOBACCO USER EVERY DAY 08/20/2022 [facility] History of tobacco use CO-TOBACCO USE WI 30 MIN OF WAKEUP 08/20/2022 [facility] History of tobacco use CO-TOBACCO USER E VERY DAY 09/12/2021 [facility] History of tobacco use CO-TOBACCO DOESNT USE WI 30 MIN WAKEUP 09/01/2020 [facility] History of tobacco use CO-TOBACCO USE CO UNSEL NO 09/27/2019 [facility] History of tobacco use CO-TOBACCO USE WI 30 MIN OF WAKEUP 03/04/2018 [facility] History of tobacco use CURRENT TOBACCO USER 04/22/2017 [facility] History of tobacco use CURRENT TOBACCO USER 04/16/2016 [facility] History of tobacco use CURRENT TOBACCO USER 07/26/2014 [facility] History of tobacco use CURRENT TOBACCO USER 12/31/2013 [facility] History of tobacco use CURRENT TOBACCO USER 09/05/2012 [facility] History of tobacco use CURRENT TOBACCO USER 11/25/2011 [facility] History of tobacco use CURRENT TOBACCO USER 02/08/2011 [facility] History of tobacco use CURRENT TOBACCO USER 05/01/2010 [facility] History of tobacco use CURRENT TOBACCO USER 07/03/2009 [facility] Plan of Care List of future care activities from Department of Veterans Affairs facilities. Additional future care activities may be listed in the Assessment and Plan section. Date/Time Care Activity Care Activity Detail Facili ty 09/23/2023 AMBULATORY - NONE [facility]ORY - NONE [place] [facility] 09/23/2023 AMBULATORY - MEDICINE AMBULATORY - MEDICI NE [facility] 09/28/2023 Laboratory - Chemistry Order B 12 SERUM S P ONCE [facility] 09/28/2023 Laboratory - Chemistry Order FOLATE SERUM SP [facility] 09/28/2023 Laboratory - Chemistry Order CBC BLOOD [facility] 09/28/2023 Laboratory - Chemistry Order BAS IC METABOLIC PANEL+MG PLASMA [facility]
--- OUTSIDE RECORDS SUMMARY | 2023-09-23 04:38 | XMS_ITS | Encounter Summary ---
Author Name [facility] [place] [facility] [place] Address [address] [place] [address] Care Team Providers Care Peanut Salter Name Role Phone KAREN DOVE Primary Care Provider Unavailabl e Insurance Providers: [...] AID (WNR) Aug 08, 2013 MEDICAI D [id number] [phone] DERICK SKELTON PATIENT MEDICARE (WNR) MEDICARE (M) PART A Sep 07, 2016 PART A [id number] DERICK SKELTON PATIENT Selected Encounter This section includes the information on record at [place] for the Encounter. Date/Time Encounter Type Encounter Description Reason Pro vider Source IHE Encounter Template Text not used by [place]
--- OUTSIDE RECORDS SUMMARY | 2023-09-23 04:39 | XMS_ITS | Encounter Summary ---
Author Name [facility] [place] Address [address] [place] [address] Care Team Providers Care [facility] Name Role Phone PETTYMARCIALO Primary Care Provider Unavailabl e Insurance Providers: [...] AID (WNR) Aug 08, 2013 MEDICAI D [id number] DERICK SKELTON PATIENT MEDICARE (WNR) MEDICARE (M) PART A Sep 07, 2016 PART A [id number] DERICK SKELTON PATIENT Selected Encounter This section includes the information on record at [place] for the Encounter. Date/Time Encounter Type Encounter Description Reason Provider Source Jun 20, 2023 08:06 AM Outpatient Encounter [facility] OCTAVIANO HEWITT Encounter Template Text not used by [place] Plan of Treatment: Future Appointments (+ 6 months) and Future Tests (+/- 45 days) The Plan of Treatment section includes future care activities for the patient from all [place] treatmentfacilities. This section includes future appointments and future orders which are active, pending or scheduled. Future Appointments This section includes appointments that were scheduled to occur 6 months from the date of the Encounter, up to a maximum of 20 appointments. The data comes from all [facility]. Appointment Date/Time Appointment Type Appointme nt Facility Name July 16, 2023 09:00 AM [place] [facility] August 07, 2023 02:27 PM AMBUL[place]ORY - NONE [place] [facility] Aug 25, 2023 11:45 AM AMBUL[place]ORY - NONE [place] [facility] Sep 23, 2023 08:15 AM AM[place] - NONE [place] [facility] Sep 23, 2023 09:15 AM [facility] Active, Pending, and Scheduled Orders This section includes a listing of several types of active, pending, and scheduled orders, including clinic medications orders, diagnostic test orders, procedure orders and consult orders; where the start date of the order is 45 days before the date of the Encounter or 45 days after the date of theEncounter. The data comes from all [facility]. Test Date/Time Test Type Test Details Facility Name July 18, 2023 12:00 AM Laboratory - Chemi stry Order CBC BLOOD SP ONCE [facility] July 18, 2023 12:00 AM Laboratory - Chemi stry Order IRON GROUP SERUM SP [facility] Social History: Smoking Status (Most current) and Tobacco Use (All prior to encounter date) This section includes the most current, and the historical, smoking and tobacco- related health factors from the [place] facility where the Encounter took place. Current Smoking Status This section includes the most current smoking, or tobacco-related health factor, from the [place] facility where the Encounter took place. Date/Time Current Smoking Status Comment Facil ity Aug 20, 2022 09:15 AM VA-TOBACCO USER EVERY DAY [facility] Tobacco Use History This section includes a history of the smoking, or tobacco-related health factors, that were collected on or before the date of the Encounter. The data comes from the [place] facility where the Encounter took place. Date/Time Smoking Status/Tobacco Use Comment F acility Aug 20, 2022 09:15 AM VA-TOBACCO USE ADVICE 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 Aug 20, 2022 09:15 AM VA-TOBACCO USE MED NO [facility] Aug 20, 2022 09:15 AM VA-TOBACCO USE [place] [address] [facility] Aug 20, 2022 09:15 AM VA-TOBACCO USER EVERY DAY [facility] Sep 12, 2021 09:15 AM VA-TOBACCO USE [address] [facility] Sep 12, 2021 09:15 AM VA-TOBACCO USE ADVICE 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 Sep 12, 2021 09:15 AM VA-TOBACCO USE MED NO [facility] Sep 12, 2021 09:15 AM VA-TOBACCO USE [place] [address] [facility] Sep 12, 2021 09:15 AM VA-TOBACCO USER EVERY DAY [facility] Sep 01, 2020 01:30 PM VA-TOBACCO DOESNT USE [place] [address] [facility] Sep 01, 2020 01:30 PM VA-TOBACCO USE [address] [facility] Sep 01, 2020 01:30 PM VA-TOBACCO USE ADVICE 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 Sep 01, 2020 01:30 PM VA-TOBACCO USE MED NO [facility] Sep 01, 2020 01:30 PM VA-TOBACCO USER EVERY DAY [facility] Sep 27, 2019 09:35 AM VA-TOBACCO USE [address] [facility] Sep 27, 2019 09:35 AM VA-TOBACCO USE ADVICE 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 Sep 27, 2019 09:35 AM VA-TOBACCO USE MED NO [facility] Sep 27, 2019 09:35 AM VA-TOBACCO USE [place] [address] [facility] Sep 27, 2019 09:35 AM VA-TOBACCO USER EVERY DAY [facility] Mar 04, 2018 01:45 PM VA-TOBACCO USE [address] [facility] Mar 04, 2018 01:45 PM VA-TOBACCO USE ADVICE 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 Mar 04, 2018 01:45 PM VA-TOBACCO USE MED NO [facility] Mar 04, 2018 01:45 PM VA-TOBACCO USE [place] [address] UP [facility] Mar 04, 2018 01:45 PM VA-TOBACCO USER EVERY DAY [facility] Apr 22, 2017 10:01 AM CURRENT TOBACCO USER [facility] Apr 16, 2016 09:52 AM CURRENT TOBACCO USER [facility] July 26, 2014 09:08 AM [address]RENT TOBACCO USER [facility] Dec 31, 2013 10:06 AM CURRENT TOBACCO USER [facility] Sep 05, 2012 09:27 AM CURRENT TOBACCO USER [facility] Nov 25, 2011 09:12 AM CURRENT TOBACCO USER [facility] Feb 08, 2011 10:04 AM CURRENT TOBACCO USER [facility] May 01, 2010 10:24 AM CURRENT TOBACCO USER [facility] Jul 03, 2009 08:42 AM [address]BACCO USER [facility] Encounter Notes: All associated encounter notes [...] upcoming phone appointment with Dr. Alicea? Darryl [phone] (capacity planning analyst) ------Original Message ----- Sent: 06/20/2023 09:05 AM ET From: OCTAVIANO HEWITT To: FRANCES SKELTON Subject: Medication:Duloxetine Hello Your next appointment with Dr Alicea is July 15 at 0900. Call [phone] to get an earlier appointment- he should have some openings before July 15. I would recommend setting up a primary care appointment and see what options they have for your chronic pain has well. Sebas /marli/ OCTAVIANO HEWITT RN REGISTERED NURSE Signed: 06/20/2023 08:06 Receipt Acknowledged By: 06/20/2023 13:07 /marli/ Husam Alicea M.D., Ph.D. STAFF PSYCHIATRIST OCTAVIANO HEWITT [facility]
--- OUTSIDE RECORDS SUMMARY | 2023-09-23 04:39 | XMS_ITS | Encounter Summary ---
Author Name [facility] [place] Address [address] [place] [address] Care Team Providers Care Primer Charging Tool Setter Name Role Phone PETTY KAREN Primary Care [...] AID (WNR) Aug 08, 2013 MEDICAI D [id number] [phone] DERICK SKELTON PATIENT MEDICARE (WNR) MEDICARE (M) PART A Sep 07, 2016 PART A [id number] DERICK SKELTON PATIENT Selected Encounter This section includes the information on record at [place] for the Encounter. Date/Time Encounter Type Encounter Description Reason Provider Source Jun 04, 2023 10:17 AM Outpatient Encounter AMBULATORY MARTHA ELIAS Gillian Encounter Template Text not used by [place] Plan of Treatment: Future Appointments (+ 6 months) and Future Tests (+/- 45 days) The Plan of Treatment section includes future care activities for the patient from all [place] treatment[place]ilities. This section includes future appointments and [...] 16, 2023 09:00 AM [place] [place] [facility] [place] [facility] August 07, 2023 02:27 PM AM[facility]UL[facility]ORY - NONE [place] [facility] Aug 25, 2023 11:45 AM AM[place]UL[place]ORY - NONE [place] [facility] Sep 23, 2023 08:15 AM [facility] Sep 23, 2023 09:15 AM [facility] Active, Pending, and Scheduled Orders This section includes a listing of several types of active, pending, and scheduled orders, including clinic medications orders, diagnostic test orders, procedure orders and consult orders; where the start date of the order is 45 days before the date of the Encounter or 45 days after the date of theEncounter. The data comes from all [facility]. Test Date/Time Test Type Test Details Facility Name Apr 29, 2023 12:00 AM Laboratory - Chemi stry Order BASIC METABOLIC PANEL+MG PLASMA SP ONCE [facility] Apr 29, 2023 12:00 AM Laboratory - Chemi stry Order CBC BLOOD SP [facility] July 18, 2023 12:00 [...] and tobacco- related health factors from the [place] facility where the Encounter took place. Current Smoking Status This section includes the most current smoking, or tobacco-related health factor, from the [place] facility where the Encounter took place. Date/Time Current Smoking Status Comment Facil ity Aug 20, 2022 09:15 AM VA-TOBACCO USER EVERY DAY [facility] Tobacco Use History This section includes a history of the smoking, or tobacco-related health factors, that were collected on or before the date of the Encounter. The data comes from the [place] facility where the Encounter took place. Date/Time Smoking Status/Tobacco Use Comment F acility Aug 20, 2022 09:15 AM VA-TOBACCO USE ADVICE [facility] Aug 20, 2022 09:15 AM VA-TOBACCO USE GROUP DIRECTOR EXPERIENCE NO [facility] Aug 20, 2022 [...] Sep 12, 2021 09:15 AM VA-TOBACCO USE GROUP DIRECTOR EXPERIENCE NO [facility] Sep 12, 2021 [...] Sep 01, 2020 01:30 PM VA-TOBACCO USE GROUP DIRECTOR EXPERIENCE NO [facility] Sep 01, 2020 01:30 PM VA-TOBACCO USE MED NO [facility] Sep 01, 2020 01:30 PM VA-TOBACCO USER EVERY DAY [facility] Sep 27, 2019 09:35 AM VA-TOBACCO USE [address] [facility] Sep 27, 2019 09:35 AM VA-TOBACCO USE ADVICE [facility] Sep 27, 2019 09:35 AM VA-TOBACCO USE GROUP DIRECTOR EXPERIENCE NO [facility] Sep 27, 2019 [...] Mar 04, 2018 01:45 PM VA-TOBACCO USE GROUP DIRECTOR EXPERIENCE NO [facility] Mar 04, 2018 [...]
--- OUTSIDE RECORDS SUMMARY | 2023-09-23 04:39 | XMS_ITS | Encounter Summary ---
Author Name [facility] [place] Address [address] [place] [id number] Care Team Providers Care Social Security Assessor Name Role Phone KAREN DOVE Primary Care [...] AID (WNR) Aug 08, 2013 MEDICAI D [id number] [phone] DERICK SKELTON PATIENT MEDICARE (WNR) MEDICARE (M) PART A Sep 07, 2016 PART A [id number] DERICK SKELTON PATIENT Selected Encounter This section includes the information on record at [place] for the Encounter. Date/Time Encounter Type Encounter Description Reason Provider Source Jun 12, 2023 02:09 PM QNHP OL DIG ASSMT&MGMT 5-10 CLINICAL PHARMACY ICD-10-CM F33.1 Major depressive disorder, recurrent, moderate CHAPO,ANDR A A E Encounter Template Text not used by [place] Assessments - Encounter Diagnoses This section includes the primary and secondary diagnoses documented for the Encounter. Date/Time Primary/Secondary Diagnosis Diagnosis Name Provider Source Jun 12, 2023 02:18 PM PRIMARY Major depressive disorder, recurrent, moderate CHAPO,ANDR A A [facility] Jun 12, 2023 02:18 PM SECONDARY Post-traumatic stress disorder, chronic CHAPO,ANDR A A [facility] Plan of Treatment: Future Appointments (+ 6 months) and Future Tests (+/- 45 days) The Plan of Treatment section includes future care activities for the patient from all [place] [facility]. This section includes future appointments and future orders which are active, pending or scheduled. Future Appointments This section includes appointments that were scheduled to occur 6 months from the date of the Encounter, up to a maximum of 20 appointments. The data comes from all [facility]. Appointment Date/Time Appointment Type Appointme nt Facility Name July 16, 2023 09:00 AM AM[facility] August 07, 2023 02:27 PM AMBULATORY - NONE [facility] Aug 25, 2023 11:45 AM AMBULATORY - NONE [facility] Sep 23, 2023 08:15 AM AMBULATORY - NONE [facility] Sep 23, 2023 09:15 AM [facility] Active, Pending, and Scheduled Orders This section includes a listing of several types of active, pending, and scheduled orders, including clinic medications orders, diagnostic test orders, procedure orders and consult orders; where the start date of the order is 45 days before the date of the Encounter or 45 days after the date of theEncounter. The data comes from all [facility]. Test Date/Time Test Type Test Details Facility Name Apr 29, 2023 12:00 AM Laboratory - Chemi stry Order BASIC METABOLIC PANEL+MG PLASMA SP ONCE [facility] Apr 29, 2023 12:00 AM Laboratory - Chemi stry Order CBC BLOOD SP [facility] July 18, [...] and tobacco- related health factors from the [facility] where the Encounter took place. Current Smoking Status This section includes the most current smoking, or tobacco-related health factor, from the [place] facility where the Encounter took place. Date/Time Current Smoking Status Comment Facil ity Aug 20, 2022 09:15 AM VA-TOBACCO USER EVERY DAY [facility] Tobacco Use History This section includes a history of the smoking, or tobacco-related health factors, that were collected on or before the date of the Encounter. The data comes from the [place] facility where the Encounter took place. 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 [facility] Aug [...] Sep 12, 2021 09:15 AM VA-TOBACCO USE OPERATING ROOM AIDE NO [facility] Sep [...] Sep 01, 2020 01:30 PM VA-TOBACCO USE OPERATING ROOM AIDE NO [facility] Sep [...] Sep 27, 2019 09:35 AM VA-TOBACCO USE OPERATING ROOM AIDE NO [facility] Sep [...] Mar 04, 2018 01:45 PM VA-TOBACCO USE OPERATING ROOM AIDE NO [facility] Mar [...] 2023@16:15:15 ENTRY DATE: JUN 13, 2023@16:15:15 AUTHOR: CAROLA ALICEA COSIGNER: URGENCY: STATUS: COMPLETED Will request RN schedule f2f follow up for AIMS and atypicals panel and eval. /marli/ Carola Alicea M.D., Ph.D. STAFF PSYCHIATRIST Signed: 06/13/2023 16:15 Receipt Acknowledged By: 06/16/2023 08:22 /marli/ OCTAVIANO HEWITT RN REGISTERED NURSE --- Original Document --- 06/12/23 PHARMACOTHERAPY-CLINICAL PHARMACY NOTE: ========= MENTAL HEALTH PHARMACY SERVICE ========= Date of service: JUN 12, 2023 was identified as being prescribed an antipsychotic. Chart was reviewed to assess for monitoring considerations. is currently prescribed olanzapine. Active problems - Computerized Problem List is the source for the followin. Heavy tobacco smoker (SNOMED CT 076870391678536) 2. Depression (SNOMED CT 30786311) 3. Chronic post-traumatic stress disorder following combat (SNOMED CT 4. Idiopathic chronic neuropathy (SNOMED CT 085120686) - EMG-proven 5. Lumbar spondylosis 6. Prostate Cancer (SCT 952714039) - status post radical retroprostatectomy 2012 complicated by incontinence 7. 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 Osteopenia - per 10/2022 DEXA 9. Recurrent falls - Likely driven by of his severe lower extremity neuropathy 10. Alcohol Abuse (SCT 47338459) 11. Gastritis - suspected NSAID-induced 2013 +/- EtOH: remains on PPI 12. COPD - Chronic Obstructive Pulmonary Disease (SCT 25726822) 13. History of Polyp of Colon (SCT 883438302) - last colonoscopy 06/21/2013 notable for hyperplastic polyp w/ repeat due June 2023 for screening purposes 14. 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 Insomnia (SCT 237822473) 16. Vitamin D deficiency 17. Vitamin B12 deficiency (non anemic) 18. Exposure to potentially hazardous substance (SCT 150859515103989) - Entered through [facility]/[employer] Documentation Initiative 19. Genital herpes simplex [...] TRIGLYCERIDE____ HDL____ LDL CALCULATION____ AIMS: Due ASSESSMENT: Seymour is a 72 y/o MALE who is prescribed an antipsychotic. Annual antipsychotic monitoring includes: -Annual BMI and blood pressure -Fasting blood glucose or A1c -Lipid panel -AIMS exam Metabolic lab monitoring and AIMS exam are due. Will alert prescriber to consider discussing at next appt. PLAN: 1. Alert prescriber to consider antipsychotic lab monitoring/ AIMS exam at next appt with Seymour Time spent: 5 minutes /marli/ ELVIN COWAN PHARMD, BCPP Mental Health Clinical Pharmacist Practitioner Signed: 06/12/2023 14:18 Receipt Acknowledged By: 06/13/2023 16:27 /marli/ Carola Alicea M.D., Ph.D. STAFF PSYCHIATRIST CAROLA ALICEA V [facility] Jun 12, 2023 02:09 PM PHARMACY NOTE: LOCAL TITLE: PHARMACOTHERAPY-CLINICAL PHARMACY NOTE STANDARD TITLE: PHARMACY NOTE DATE OF NOTE: JUN 12, 2023@14:09 ENTRY DATE: JUN 12, 2023@14:09:53 AUTHOR: ELVIN COWAN COSIGNER: URGENCY: STATUS: COMPLETED PHARMACOTHERAPY-CLINICAL PHARMACY NOTE Has ADDENDA ========= MENTAL HEALTH PHARMACY SERVICE ========= Date of service: JUN 12, 2023 Seymour was identified as being prescribed an antipsychotic. Chart was reviewed to assess for monitoring considerations. Seymour is currently prescribed olanzapine. Active problems - Computerized Problem List is the source for the followin. Heavy tobacco smoker (SNOMED CT 006631932181742) 2. Depression (SNOMED CT 70126338) 3. Chronic post-traumatic stress disorder following combat (SNOMED CT 4. Idiopathic chronic neuropathy (SNOMED CT 425748534) - EMG-proven 5. Lumbar spondylosis 6. Prostate Cancer (SCT 676141282) - status post radical retroprostatectomy 2012 complicated by incontinence 7. 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 Osteopenia - per 10/2022 DEXA 9. Recurrent falls - Likely driven by of his severe lower extremity neuropathy 10. Alcohol Abuse (SCT 73439166) 11. Gastritis - suspected NSAID-induced 2013 +/- EtOH: remains on PPI 12. COPD - Chronic Obstructive Pulmonary Disease (SCT 42152036) 13. History of Polyp of Colon (SCT 441747364) - last colonoscopy 06/21/2013 notable for hyperplastic polyp w/ repeat due June 2023 for screening purposes 14. 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 Insomnia (SCT 250753234) 16. Vitamin D deficiency 17. Vitamin B12 deficiency (non anemic) 18. Exposure to potentially hazardous substance ([facility] [id number]) - Entered through [facility]/[address] Documentation Initiative 19. Genital herpes simplex - [...] TRIGLYCERIDE____ HDL____ LDL CALCULATION____ AIMS: Due ASSESSMENT: Seymour is a 72 y/o MALE who is prescribed an antipsychotic. Annual antipsychotic monitoring includes: -Annual BMI and blood pressure -Fasting blood glucose or A1c -Lipid panel -AIMS exam Metabolic lab monitoring and AIMS exam are due. Will alert prescriber to consider discussing at next appt. PLAN: 1. Alert prescriber to consider antipsychotic lab monitoring/ AIMS exam at next appt with Seymour Time spent: 5 minutes /marli/ ELVIN COWAN PHARMD, [facility] Mental Health Clinical Pharmacist Practitioner Signed: 06/12/2023 14:18 Receipt Acknowledged By: 06/13/2023 16:27 /kelly Alicea M.D., Ph.D. STAFF PSYCHIATRIST 06/13/2023 ADDENDUM STATUS: COMPLETED Will request RN schedule f2f follow up for AIMS and atypicals panel and eval. /kelly Alicea M.D., Ph.D. STAFF PSYCHIATRIST Signed: 06/13/2023 16:15 ELVIN COWAN [facility]
--- OUTSIDE RECORDS SUMMARY | 2023-09-23 04:39 | XMS_ITS | Encounter Summary ---
Author Name [place] Address [address] [place] [address] Care Team Providers Care Hydrology Professor Name Role Phone PETTY KAREN Primary Care [...] AID (WNR) Aug 08, 2013 MEDICAI D [id number] [phone] DERICK SKELTON PATIENT MEDICARE (WNR) MEDICARE (M) PART A Sep 07, 2016 PART A [id number] DERICK SKELTON PATIENT Selected Encounter This section includes the information on record at [place] for the Encounter. Date/Time Encounter Type Encounter Description Reason Provider Source Jun 04, 2023 09:15 AM ENDOSCOPIC US EXAM ESOPH GI ENDOSCOPY ICD-10-CM K22.89 Other specified disease of esophagus BILAL,MOHAMMAD IHE Encounter Template Text not used by [place] Assessments - Encounter Diagnoses This section includes the primary and secondary diagnoses documented for the Encounter. Date/Time Primary/Secondary Diagnosis Diagnosis Name Provider Source Jun 04, 2023 12:21 PM PRIMARY Other specified disease of esophagus CATRACHITA MALDONADO [facility] Jun 04, 2023 12:21 PM SECONDARY Other diseases of stomach and duodenum CATRACHITA [facility]DONAD[facility] Plan of Treatment: Future Appointments (+ 6 months) and Future Tests (+/- 45 days) The Plan of Treatment section includes future care activities for the patient from all [place] [facility] This section includes future appointments and future orders which are active, pending or scheduled. Future Appointments This section includes appointments that were scheduled to occur 6 months from the date of the Encounter, up to a maximum of 20 appointments. The data comes from all [facility]. Appointment Date/Time Appointment Type Appointme nt Facility Name July 16, 2023 09:00 AM [facility] [place] [facility] August 07, 2023 02:27 PM AMBULATORY - NONE [facility] Aug 25, 2023 11:45 AM AMBULATORY - NONE [facility] Sep 23, 2023 08:15 AM AMBULATORY - NONE [facility] Sep 23, 2023 09:15 AM [facility] Active, Pending, and Scheduled Orders This section includes a listing of several types of active, pending, and scheduled orders, including clinic medications orders, diagnostic test orders, procedure orders and consult orders; where the start date of the order is 45 days before the date of the Encounter or 45 days after the date of theEncounter. The data comes from all [facility]. Test Date/Time Test Type Test Details Facility Name Apr 29, 2023 12:00 AM Laboratory - Chemi stry Order BASIC METABOLIC PANEL+MG PLASMA SP ONCE [facility] Apr 29, 2023 12:00 AM Laboratory - Chemi stry Order CBC BLOOD SP [facility] July 18, 2023 12:00 AM Laboratory - Chemi stry Order CBC BLOOD SP ONCE [facility] July 18, 2023 12:00 AM Laboratory - Chemi stry Order IRON GROUP SERUM SP [facility] Social History: Smoking Status (Most current) and Tobacco Use (All prior to encounter date) This section includes the most current, and the historical, smoking and tobacco- related health factors from the [place] facility where the Encounter took place. Current Smoking Status This section includes the most current smoking, or tobacco-related health factor, from the [place] facility where the Encounter took place. Date/Time Current Smoking Status Comment Facil ity Aug 20, 2022 09:15 AM VA-TOBACCO USER EVERY DAY [facility] Tobacco Use History This section includes a history of the smoking, or tobacco-related health factors, that were collected on or before the date of the Encounter. The data comes from the [place] facility where the Encounter took place. Date/Time Smoking Status/Tobacco Use Comment F acility Aug 20, 2022 09:15 AM VA-TOBACCO USE ADVICE [facility] Aug 20, 2022 09:15 AM VA-TOBACCO USE RESIDENTIAL PROGRAM MANAGER NO [facility] Aug 20, 2022 [...] Sep 12, 2021 09:15 AM VA-TOBACCO USE RESIDENTIAL PROGRAM MANAGER NO [facility] Sep 12, 2021 [...] Sep 01, 2020 01:30 PM VA-TOBACCO USE RESIDENTIAL PROGRAM MANAGER NO [facility] Sep 01, 2020 01:30 PM VA-TOBACCO USE MED NO [facility] Sep 01, 2020 01:30 PM VA-TOBACCO USER EVERY DAY [facility] Sep 27, 2019 09:35 AM VA-TOBACCO USE [address] [facility] Sep 27, 2019 09:35 AM VA-TOBACCO USE ADVICE [facility] Sep 27, 2019 09:35 AM VA-TOBACCO USE RESIDENTIAL PROGRAM MANAGER NO [facility] Sep 27, 2019 [...] Mar 04, 2018 01:45 PM VA-TOBACCO USE RESIDENTIAL PROGRAM MANAGER NO [facility] Mar 04, 2018 [...] AM CURRENT TOBACCO USER [facility] Encounter Notes: All associated [...] the followin. Heavy tobacco smoker (SNOMED CT 336006464446887) 2. Depression (SNOMED CT 35073774) 3. Chronic post-traumatic stress disorder following combat (SNOMED CT 4. Idiopathic chronic neuropathy (SNOMED CT 498511431) - EMG-proven 5. Lumbar spondylosis 6. Prostate Cancer (SCT 967803663) - status post radical retroprostatectomy 2012 complicated by incontinence 7. 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 Osteopenia - per 10/2022 DEXA 9. Recurrent falls - Likely driven by of his severe lower extremity neuropathy 10. Alcohol Abuse ([facility] 71973346) 11. Gastritis - suspected NSAID-induced 2014 +/- EtOH: remains on PPI 12. COPD - Chronic Obstructive Pulmonary Disease ([facility] 24138120) 13. History of Polyp of Colon ([facility] 206737567) - last colonoscopy 06/21/2013 notable for hyperplastic polyp w/ repeat due June 2023 for screening purposes 14. 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 Insomnia ([facility] 029763073) 16. Vitamin D deficiency 17. Vitamin B12 deficiency (non anemic) 18. Exposure to potentially hazardous substance ([facility] 796424690322557) - Entered through [facility]/[employer] Documentation Initiative 19. Genital herpes simplex [...] 4.78 (08/20/22) 6.26 (04/01/23) Other Lab tests: [place] [employer] Anesthesiologists (ASA) Classification: II SPN [...] viewed in the Reports tab-->procedures or in [facility]. I will be conducting or supervising the procedure, although a different provider obtained consent. Patient informed and agrees to proceed. I will be conducting or supervising the procedure, although a different provider obtained consent. Patient informed and agrees to proceed. /marli/ NANCY KRISHNAN MD GASTROENTEROLOGY PHYSICIAN Signed: 06/04/2023 10:[address] [facility]
--- OUTSIDE RECORDS SUMMARY | 2023-09-23 04:40 | XMS_ITS | Encounter Summary ---
Author Name [place] Address [address] [place] [address] Care Team Providers Care Criminal Researcher Name Role Phone PETTYKAREN Primary Care Provider [...] AID (WNR) Aug 08, 2013 MEDICAI D [id number] [phone] DERICK SKELTON PATIENT MEDICARE (WNR) MEDICARE ([place]) PART A Sep 07, 2016 PART A [id number] DERICK SKELTON PATIENT Selected Encounter This section [...] 16, 2023 09:00 AM AM[place] [facility] August 07, 2023 02:27 PM [place]ONE [place] [facility] Aug 25, 2023 11:45 AM [place] [facility] Sep 23, 2023 08:15 AM [place] [facility] Sep 23, 2023 09:15 AM [facility] Active, Pending, and Scheduled Orders This section includes a listing of several types of active, pending, and scheduled orders, including clinic medications orders, diagnostic test orders, procedure orders and consult orders; where the start date of the order is 45 days before the date of the Encounter or 45 days after the date of theEncounter. The data comes from all [facility] facilities. Test Date/Time Test Type Test Details Facility Name July 18, 2023 12:00 AM Laboratory - Chemi stry Order CBC BLOOD SP ONCE [facility] July 18, 2023 12:00 AM Laboratory - Chemi stry Order IRON GROUP SERUM SP [facility] Social History: Smoking Status (Most [...] 2022 09:15 AM VA-TOBACCO USER EVERY DAY [facility] Tobacco Use History This section includes a history of the smoking, or tobacco-related health factors, that were collected on or before the date of the Encounter. The data comes from the [place] facility where the Encounter took place. Date/Time Smoking Status/Tobacco Use Comment F acility Aug 20, 2022 09:15 AM VA-TOBACCO USE ADVICE [facility] Aug 20, 2022 09:15 AM VA-TOBACCO USE BOAT OUTFITTING SUPERVISOR NO [facility] Aug 20, 2022 09:15 AM VA-TOBACCO USE MED NO [facility] Aug 20, 2022 09:15 AM VA-TOBACCO USE WI 30 MIN OF WAKE UP [facility] Aug 20, 2022 09:15 AM VA-TOBACCO USER EVERY DAY [facility] Sep 12, 2021 09:15 AM VA-TOBACCO USE 30 YEARS OR MORE [facility] Sep 12, 2021 09:15 AM VA-TOBACCO USE ADVICE [facility] Sep 12, 2021 09:15 AM VA-TOBACCO USE BOAT OUTFITTING SUPERVISOR NO [facility] Sep 12, 2021 09:15 AM VA-TOBACCO USE MED NO [facility] Sep 12, 2021 09:15 AM VA-TOBACCO USE WI 30 MIN OF WAKE UP [facility] Sep 12, 2021 09:15 AM VA-TOBACCO USER EVERY DAY [facility] Sep 01, 2020 01:30 PM VA-TOBACCO DOESNT USE WI 30 MIN WAKEUP [facility] Sep 01, 2020 01:30 PM VA-TOBACCO USE 30 YEARS OR MORE [facility] Sep 01, 2020 01:30 PM VA-TOBACCO USE ADVICE [facility] Sep 01, 2020 01:30 PM VA-TOBACCO USE BOAT OUTFITTING SUPERVISOR NO [facility] Sep 01, 2020 01:30 PM VA-TOBACCO USE MED NO [facility] Sep 01, 2020 01:30 PM VA-TOBACCO USER EVERY DAY [facility] Sep 27, 2019 09:35 AM VA-TOBACCO USE 30 YEARS OR MORE [facility] Sep 27, 2019 09:35 AM VA-TOBACCO USE ADVICE [facility] Sep 27, 2019 09:35 AM VA-TOBACCO USE BOAT OUTFITTING SUPERVISOR NO [facility] Sep 27, 2019 09:35 AM VA-TOBACCO USE MED NO [facility] Sep 27, 2019 09:35 AM VA-TOBACCO USE WI 30 MIN OF WAKE UP [facility] Sep 27, 2019 09:35 AM VA-TOBACCO USER EVERY DAY [facility] Mar 04, 2018 01:45 PM VA-TOBACCO USE 30 YEARS OR MORE [facility] Mar 04, 2018 01:45 PM VA-TOBACCO USE ADVICE [facility] Mar 04, 2018 01:45 PM VA-TOBACCO USE BOAT OUTFITTING SUPERVISOR NO [facility] Mar 04, 2018 01:45 PM VA-TOBACCO USE MED NO [facility] Mar 04, 2018 01:45 PM VA-TOBACCO USE [place] 30 MIN OF WAKE UP [facility] Mar 04, 2018 01:45 PM VA-TOBACCO USER EVERY DAY [facility] Apr 22, 2017 10:01 AM CURRENT TOBACCO USER [facility] Apr 16, 2016 09:52 AM CURRENT TOBACCO USER [facility] July 26, 2014 09:08 AM CURRENT TOBACCO USER [facility] Dec 31, 2013 10:06 AM CURRENT TOBACCO USER [facility] Sep 05, 2012 09:27 AM CURRENT TOBACCO USER [facility] Nov 25, 2011 09:12 AM CURRENT TOBACCO USER [facility] Feb 08, 2011 10:04 AM CURRENT TOBACCO USER [facility] May 01, 2010 10:24 AM CURRENT TOBACCO USER [facility] Jul 03, 2009 08:42 AM CURRENT TOBACCO USER [facility] Encounter Notes: All associated encounter notes This section contains the clinical notes associated to the Encounter. Date/Time Encounter Note(s) Provider Source Jun 27, 2023 07:54 AM NONVA NOTE: LOCAL TITLE: COMMUNITY CARE-REQUEST FOR SERVICE NOTE STANDARD TITLE: NONVA NOTE DATE OF NOTE: JUN 27, 2023@07:54 ENTRY DATE: JUN 27, 2023@07:54:30 AUTHOR: ARMANDO JACKSON EXP COSIGNER: URGENCY: STATUS: COMPLETED PACT: Please address Referral for additional services was received from patient's Chiropractic Provider. Please see RFAS and notes uploaded to Chiropractic, Consult #: [id number] Authorization 07/12/2022(date). has used 1/ visits. Alerting PACT for review and placement of new consult if indicated. RFS and records uploaded to [facility] note dated 04/23/[address] new consult if clinically indicated, thank you. Please ensure plan of care is communicated to if new consult is not entered. [facility] Care BENEFITS PROCESSOR to contact with questions regarding this care: Armando Jackson LPN /marli/ ARMANDO JACKSON LPN Staff Nurse Signed: 06/27/2023 07:55 Receipt Acknowledged By: 06/27/2023 13:01 /es/ GRACE HERNANDEZ RN Pact Repertoire Manager for JOSE BULLOCK 06/27/2023 12:27 /es/ NELSON PROCTOR MD Staff Physician for ARMANDO DOS SANTOS [facility]
--- OUTSIDE RECORDS SUMMARY | 2023-09-23 04:40 | XMS_ITS | Encounter Summary ---
Author Name [place] Address [address] [place] [address] Care Team Providers Care Farm Mechanic Apprentice Name Role Phone PETTY KAREN Primary Care [...] AID (WNR) Aug 08, 2013 MEDICAI D [id number] [phone] DERICK SKELTON PATIENT MEDICARE (WNR) MEDICARE (M) PART A Sep 07, 2016 PART A [id number] [phone] DERICK SKELTON PATIENT Selected Encounter This section includes the information on record at [place] for the Encounter. Date/Time Encounter Type Encounter Description Reason Pro vider Source Jun 23, 2023 03:06 PM Outpatient Encounter EVENT (HISTORICAL) IHE Encounter Template Text not used by [place] Plan of Treatment: Future Appointments (+ 6 months) and Future Tests (+/- 45 days) The Plan of Treatment section includes future care activities for the patient from all [place] treatmentfacilities. This section includes future appointments and [...] 2023 09:00 AM AM[facility] August 07, 2023 02:27 PM [facility] [place]ONE [place] [facility] Aug 25, 2023 11:45 AM AM[facility]UL[facility]ORY [facility] NONE [place] [facility] Sep 23, 2023 08:15 AM [facility] Sep 23, 2023 09:15 AM [facility] Active, Pending, and Scheduled Orders [...] Chemi stry Order CBC BLOOD SP ONCE [facility] July 18, 2023 12:00 AM Laboratory - Chemi stry Order IRON GROUP SERUM SP [facility] Social History: Smoking Status (Most current) and Tobacco Use (All prior to encounter date) This section includes the most current, and the historical, smoking and tobacco- related health factors from the [place] facility where the Encounter took place. Current Smoking Status This section includes the most current smoking, or tobacco-related health factor, from the [place] facility where the Encounter took place. Date/Time Current Smoking Status Comment Facil ity Aug 20, 2022 09:15 AM VA-TOBACCO USER EVERY DAY [facility] Tobacco Use History This section includes a history of the smoking, or tobacco-related health factors, that were collected on or before the date of the Encounter. The data comes from the [place] facility where the Encounter took place. Date/Time Smoking Status/Tobacco Use Comment F acility Aug 20, 2022 09:15 AM VA-TOBACCO USE ADVICE [facility] Aug 20, 2022 09:15 AM VA-TOBACCO USE SUPERVISOR FRONT NO [facility] Aug 20, 2022 09:15 AM VA-TOBACCO USE MED NO [facility] Aug 20, 2022 09:15 AM VA-TOBACCO USE WI 30 MIN OF WAKE UP [facility] Aug 20, 2022 09:15 AM VA-TOBACCO USER EVERY DAY [facility] Sep 12, 2021 09:15 AM VA-TOBACCO USE 30 YEARS OR MORE [facility] Sep 12, 2021 09:15 AM VA-TOBACCO USE ADVICE [facility] Sep 12, 2021 09:15 AM VA-TOBACCO USE SUPERVISOR FRONT NO [facility] Sep 12, 2021 09:15 AM VA-TOBACCO USE MED NO [facility] Sep 12, 2021 09:15 AM VA-TOBACCO USE WI 30 MIN OF WAKE UP [facility] Sep 12, 2021 09:15 AM VA-TOBACCO USER EVERY DAY [facility] Sep 01, 2020 01:30 PM VA-TOBACCO DOESNT USE WI 30 MIN WAKEUP [facility] Sep 01, 2020 01:30 PM VA-TOBACCO USE 30 YEARS OR MORE [facility] Sep 01, 2020 01:30 PM VA-TOBACCO USE ADVICE [facility] Sep 01, 2020 01:30 PM VA-TOBACCO USE SUPERVISOR FRONT NO [facility] Sep 01, 2020 01:30 PM VA-TOBACCO USE MED NO [facility] Sep 01, 2020 01:30 PM VA-TOBACCO USER EVERY DAY [facility] Sep 27, 2019 09:35 AM VA-TOBACCO USE 30 YEARS OR MORE [facility] Sep 27, 2019 09:35 AM VA-TOBACCO USE ADVICE [facility] Sep 27, 2019 09:35 AM VA-TOBACCO USE SUPERVISOR FRONT NO [facility] Sep 27, 2019 09:35 AM VA-TOBACCO USE MED NO [facility] Sep 27, 2019 09:35 AM VA-TOBACCO USE WI 30 MIN OF WAKE UP [facility] Sep 27, 2019 09:35 AM VA-TOBACCO USER EVERY DAY [facility] Mar 04, 2018 01:45 PM VA-TOBACCO USE 30 YEARS OR MORE [facility] Mar 04, 2018 01:45 PM VA-TOBACCO USE ADVICE [facility] Mar 04, 2018 01:45 PM VA-TOBACCO USE SUPERVISOR FRONT NO [facility] Mar 04, 2018 01:45 PM VA-TOBACCO USE MED NO [facility] Mar 04, 2018 01:45 PM VA-TOBACCO USE WI 30 MIN OF WAKE UP [facility] Mar 04, 2018 01:45 PM VA-TOBACCO USER EVERY DAY [facility] Apr 22, 2017 10:01 AM CURRENT TOBACCO USER [facility] Apr 16, 2016 09:52 AM CURRENT TOBACCO USER [facility] July 26, 2014 09:08 AM CURRENT TOBACCO USER [facility] Dec 31, 2013 10:06 AM CURRENT TOBACCO USER [facility] Sep 05, 2012 09:27 AM CURRENT TOBACCO USER [facility] Nov 25, 2011 09:12 AM CURRENT TOBACCO USER [facility] Feb 08, 2011 10:04 AM CURRENT TOBACCO USER [facility] May 01, 2010 10:24 AM CURRENT TOBACCO USER [facility] Jul 03, 2009 08:42 AM CURRENT TOBACCO USER [facility] Encounter Notes: All associated encounter notes This section contains the clinical notes associated to the Encounter. Date/Time Encounter Note(s) Provider Source Jun 23, 2023 03:06 PM [facility] DIALOG NOTE: LOCAL TITLE: LSN MobileAGING STANDARD TITLE: Atlas5D DIALOG NOTE DATE OF NOTE: JUN 23, 2023@15:06 ENTRY DATE: JUN 23, 2023@15:06:13 AUTHOR: MARIJA JIMENEZ EXP COSIGNER: URGENCY: STATUS: COMPLETED ------Original Message -- Sent: 06/20/2023 02:00 AM ET From: FRANCES SKELTON To: [facility] Care_Admin Subject: General:Chiropractic Referral Are you able to check the status of my [facility] referral for [facility]? I think [...] along with your visit records to FX: [phone]. Once a complete packet is received, it will be reviewed for approval. To ensure you do not get billed for any visits, please do not schedule any appointments until you receive confirmation from [facility] that the referral has been approved and sent to your preferred provider. I have sent the required form along with instructions to [facility]. Marija Mazariegos [place] [facility] /es/ MARIJA JIMENEZ MSA CALL WORKER PERSON Signed: 06/23/2023 15:06 MARIJA JIMENEZ [facility]
--- OUTSIDE RECORDS SUMMARY | 2023-09-23 04:41 | XMS_ITS | Encounter Summary ---
Author Name [facility] [place] Organization [facility] [place] Address [address] [place] [address] Care Team Providers Care Rn Bone Marrow Transplant Name Role Phone PETTYKAREN Primary Care Provider [...] AID (WNR) Aug 08, 2013 MEDICAI D [id number] [phone] DERICK SKELTON PATIENT MEDICARE (WNR) MEDICARE (M) PART A Sep 07, 2016 PART A [id number] DERICK SKELTON PATIENT Selected Encounter This section [...] 16, 2023 09:00 AM [place] [facility] August 07, 2023 02:27 PM [facility] [place]ONE [facility] Aug 25, 2023 11:45 AM [place] [place] [facility] Sep 23, 2023 08:15 AM [place] [place] [facility] Sep 23, 2023 09:15 AM [facility] Active, Pending, and Scheduled Orders This section includes a listing of several types of active, pending, and scheduled orders, including clinic medications orders, diagnostic test orders, procedure orders and consult orders; where the start date of the order is 45 days before the date of the Encounter or 45 days after the date of theEncounter. The data comes from all [facility] facilities. Test Date/Time Test Type Test Details Facility Name July 18, 2023 12:00 AM Laboratory - Chemi stry Order CBC BLOOD SP ONCE [facility] July 18, 2023 12:00 AM Laboratory - Chemi stry Order IRON GROUP SERUM SP [facility] Social History: Smoking Status (Most current) [...] 2022 09:15 AM VA-TOBACCO USER EVERY DAY [facility] Tobacco Use History This section includes a history of the smoking, or tobacco-related health factors, that were collected on or before the date of the Encounter. The data comes from the [place] facility where the Encounter took place. Date/Time Smoking Status/Tobacco Use Comment F acility Aug 20, 2022 09:15 AM VA-TOBACCO USE ADVICE [facility] Aug 20, 2022 09:15 AM VA-TOBACCO USE GOLF BALL MARKER NO [facility] Aug 20, 2022 09:15 AM VA-TOBACCO USE MED NO [facility] Aug 20, 2022 09:15 AM VA-TOBACCO USE WI 30 MIN OF WAKE UP [facility] Aug 20, 2022 09:15 AM VA-TOBACCO USER EVERY DAY [facility] Sep 12, 2021 09:15 AM VA-TOBACCO USE 30 YEARS OR MORE [facility] Sep 12, 2021 09:15 AM VA-TOBACCO USE ADVICE [facility] Sep 12, 2021 09:15 AM VA-TOBACCO USE GOLF BALL MARKER NO [facility] Sep 12, 2021 09:15 AM VA-TOBACCO USE MED NO [facility] Sep 12, 2021 09:15 AM VA-TOBACCO USE WI 30 MIN OF WAKE UP [facility] Sep 12, 2021 09:15 AM VA-TOBACCO USER EVERY DAY [facility] Sep 01, 2020 01:30 PM VA-TOBACCO DOESNT USE WI 30 MIN WAKEUP [facility] Sep 01, 2020 01:30 PM VA-TOBACCO USE 30 YEARS OR MORE [facility] Sep 01, 2020 01:30 PM VA-TOBACCO USE ADVICE [facility] Sep 01, 2020 01:30 PM VA-TOBACCO USE GOLF BALL MARKER NO [facility] Sep 01, 2020 01:30 PM VA-TOBACCO USE MED NO [facility] Sep 01, 2020 01:30 PM VA-TOBACCO USER EVERY DAY [facility] Sep 27, 2019 09:35 AM VA-TOBACCO USE 30 YEARS OR MORE [facility] Sep 27, 2019 09:35 AM VA-TOBACCO USE ADVICE [facility] Sep 27, 2019 09:35 AM VA-TOBACCO USE GOLF BALL MARKER NO [facility] Sep 27, 2019 09:35 AM VA-TOBACCO USE MED NO [facility] Sep 27, 2019 09:35 AM VA-TOBACCO USE WI 30 MIN OF WAKE UP [facility] Sep 27, 2019 09:35 AM VA-TOBACCO USER EVERY DAY [facility] Mar 04, 2018 01:45 PM VA-TOBACCO USE 30 YEARS OR MORE [facility] Mar 04, 2018 01:45 PM VA-TOBACCO USE ADVICE [facility] Mar 04, 2018 01:45 PM VA-TOBACCO USE GOLF BALL MARKER NO [facility] Mar 04, 2018 01:45 PM VA-TOBACCO USE MED NO [facility] Mar 04, 2018 01:45 PM VA-TOBACCO USE WI 30 MIN OF WAKE UP [facility] Mar 04, 2018 01:45 PM VA-TOBACCO USER EVERY DAY [facility] Apr 22, 2017 10:01 AM CURRENT TOBACCO USER [facility] Apr 16, 2016 09:52 AM CURRENT TOBACCO USER [facility] July 26, 2014 09:08 AM CURRENT TOBACCO USER [facility] Dec 31, 2013 10:06 AM CURRENT TOBACCO USER [facility] Sep 05, 2012 09:27 AM CURRENT TOBACCO USER [facility] Nov 25, 2011 09:12 AM CURRENT TOBACCO USER [facility] Feb 08, 2011 10:04 AM CURRENT TOBACCO USER [facility] May 01, 2010 10:24 AM CURRENT TOBACCO USER [facility] Jul 03, 2009 08:42 AM CURRENT TOBACCO USER [facility] Encounter Notes: All associated encounter notes This section contains the clinical notes associated to the Encounter. Date/Time Encounter Note(s) Provider Source July 09, 2023 02:18 PM NONVA NOTE: LOCAL TITLE: COMMUNITY CARE PRE-AUTH LETTER (AUTOPRINT) STANDARD TITLE: NONVA NOTE DATE OF NOTE: JULY 09, 2023@14:18 ENTRY DATE: JULY 09, 2023@14:18:14 AUTHOR: ANDREW CASTELLANOS COSIGNER: URGENCY: STATUS: COMPLETED July FRANCES SKELTON [address], [place] [address] Dear FRANCES SKELTON, Your VA provider has referred you to a provider within the community for care. Your medical care for LABOR ECONOMIST has been authorized with the community care provider listed below. DO NOT REPORT TO THE [facility] Provider info: Care has been approved for the following vendor: Office name, address, and phone number: [facility] [address] [place] [id number] PH: [phone] Please contact the identified provider to schedule your community appointment. If you need assistance with this appointment, please call your facility community care office [facility] Office of Community Care at [phone] during the hours of 8:30AM - 3:00PM. Please follow up with your local [facility] community care office once this is scheduled. This step is needed to ensure your referral duration is maximized and the [place] has accurate referral information for billing purposes. Authorization Number: [id number] Referral Issue Date: Jun Expiration Date: Aug (subject to change based on first appointment) If you are unable to schedule this appointment or the appointment is no longer needed, please contact the community provider above for notification/rescheduling and then call the [facility] Office of Community Care at [phone] during the hours of 8:30AM - 3:00PM. If you need additional care/services not mentioned above or your authorization has and additional care is needed, please contact your primary care provider for a new referral. To review all care/service(s) approved under your referral, please go to the following link: [email or web address]) Co-Payments: If you are required to pay a VA co-payment, you will be billed by the VA for each authorized visit that you attend. However, you are NOT REQUIRED to make co-payments to a community provider. Thank you for the opportunity to serve you. Sincerely, [place] Community Care ([facility]) /marli/ ANDREW SANCHEZ Signed: 07/09/2023 14:19 ANDREW CASTELLANOS [facility]
--- OUTSIDE RECORDS SUMMARY | 2023-09-23 04:42 | XMS_ITS | Encounter Summary ---
Author Name [facility] [place] Organization [place] Address [address] [place] [address] Care Team Providers Care Chef Under Name Role Phone PETTY KAREN Primary Care [...] AID (WNR) Aug 08, 2013 MEDICAI D [id number] [phone] DERICK SKELTON PATIENT MEDICARE (WNR) MEDICARE (M) PART A Sep 07, 2016 PART A [id number] DERICK SKELTON PATIENT Selected Encounter This section includes the information on record at [place] for the Encounter. Date/Time Encounter Type Encounter Description Reason Provider Source July 16, 2023 09:00 AM HC PRO PHONE CALL 5-10 MIN TELEPHONE ICD-10-CM F33.1 Major depressive disorder, recurrent, moderate MAYNARD,HUSAM V E Encounter Template Text not used by [place] Assessments - Encounter Diagnoses This section includes the primary and secondary diagnoses documented for the Encounter. Date/Time Primary/Secondary Diagnosis Diagnosis Name Provider Source July 16, 2023 09:00 AM PRIMARY Major depressive disorder, recurrent, moderate MAYNARD,HUSAM V [facility] July 16, 2023 09:00 AM SECONDARY Post-traumatic stress disorder, chronic MAYNARD,HUSAM Kingsley [facility] Plan of Treatment: Future Appointments (+ 6 months) and Future Tests (+/- 45 days) The Plan of Treatment section includes future care activities for the patient from all [place] [facility]. This section includes future appointments and future orders which are active, pending or scheduled. Future Appointments This section includes appointments that were scheduled to occur 6 months from the date of the Encounter, up to a maximum of 20 appointments. The data comes from all [facility]. Appointment Date/Time Appointment Type Appointme nt Facility Name August 07, 2023 02:27 PM AMBULATORY - NONE [facility] Aug 25, 2023 11:45 AM AMBULATORY - NONE [facility] Sep 23, 2023 08:15 AM AMBULATORY - NONE [facility] Sep 23, 2023 09:15 AM AMBULATORY - MEDICINE [facility] Active, Pending, and Scheduled Orders This section includes a listing of several types of active, pending, and scheduled orders, including clinic medications orders, diagnostic test orders, procedure orders and consult orders; where the start date of the order is 45 days before the date of the Encounter or 45 days after the date of theEncounter. The data comes from all [facility]. Test Date/Time Test Type Test Details Facility Name July 18, 2023 12:00 AM Laboratory - Chemi stry Order CBC BLOOD SP ONCE [facility] July 18, 2023 12:00 AM Laboratory - Chemi stry Order IRON GROUP SERUM SP [facility] Social History: Smoking Status (Most current) and Tobacco Use (All prior to encounter date) This section includes the most current, and the historical, smoking and tobacco- related health factors from the [place] facility where the Encounter took place. Current Smoking Status This section includes the most current smoking, or tobacco-related health factor, from the [place] facility where the Encounter took place. Date/Time Current Smoking Status Comment Facil ity Aug 20, 2022 09:15 AM [place]-TOBACCO USER EVERY DAY [facility] Tobacco Use History This section includes a history of the smoking, or tobacco-related health factors, that were collected on or before the date of the Encounter. The data comes from the [place] facility where the Encounter took place. 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 NO [facility] Aug 20, 2022 09:15 AM VA-TOBACCO USE MED NO [facility] Aug 20, 2022 09:15 AM VA-TOBACCO USE WI 30 MIN OF WAKE UP [facility] Aug 20, 2022 09:15 AM VA-TOBACCO USER EVERY DAY [facility] Sep 12, 2021 09:15 AM VA-TOBACCO USE 30 YEARS OR MORE [facility] Sep 12, 2021 09:15 AM VA-TOBACCO USE ADVICE [facility] Sep 12, 2021 09:15 AM VA-TOBACCO USE 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 AND SHANK DEPARTMENT SUPERVISOR NO [facility] Sep 12, 2021 09:15 AM VA-TOBACCO USE MED NO [facility] Sep 12, 2021 09:15 AM VA-TOBACCO USE WI 30 MIN OF WAKE UP [facility] Sep 12, 2021 09:15 AM VA-TOBACCO USER EVERY DAY [facility] Sep 01, 2020 01:30 PM VA-TOBACCO DOESNT USE WI 30 MIN WAKEUP [facility] Sep 01, 2020 01:30 PM VA-TOBACCO USE 30 YEARS OR MORE [facility] Sep 01, 2020 01:30 PM VA-TOBACCO USE ADVICE [facility] Sep 01, 2020 01:30 PM VA-TOBACCO USE 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 AND SHANK 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 SUPERVISOR NO [facility] Sep 01, 2020 01:30 PM VA-TOBACCO USE MED NO [facility] Sep 01, 2020 01:30 PM VA-TOBACCO USER EVERY DAY [facility] Sep 27, 2019 09:35 AM VA-TOBACCO USE 30 YEARS OR MORE [facility] Sep 27, 2019 09:35 AM VA-TOBACCO USE ADVICE [facility] Sep 27, 2019 09:35 AM VA-TOBACCO USE BIT AND SHANK DEPARTMENT SUPERVISOR NO [facility] Sep 27, 2019 09:35 AM VA-TOBACCO USE MED NO [facility] Sep 27, 2019 09:35 AM VA-TOBACCO USE WI 30 MIN OF WAKE UP [facility] Sep 27, 2019 09:35 AM VA-TOBACCO USER EVERY DAY [facility] Mar 04, 2018 01:45 PM VA-TOBACCO USE 30 YEARS OR MORE [facility] Mar 04, 2018 01:45 PM VA-TOBACCO USE ADVICE [facility] Mar 04, 2018 01:45 PM VA-TOBACCO USE BIT AND SHANK DEPARTMENT SUPERVISOR NO [facility] Mar 04, 2018 01:45 PM VA-TOBACCO USE MED NO [facility] Mar 04, 2018 01:45 PM VA-TOBACCO USE WI 30 MIN OF WAKE UP [facility] Mar 04, 2018 01:45 PM VA-TOBACCO USER EVERY DAY [facility] Apr 22, 2017 10:01 AM CURRENT TOBACCO USER [facility] Apr 16, 2016 09:52 AM CURRENT TOBACCO USER [facility] July 26, 2014 09:08 AM CURRENT TOBACCO USER [facility] Dec 31, 2013 10:06 AM CURRENT TOBACCO USER [facility] Sep 05, 2012 09:27 AM CURRENT TOBACCO USER [facility] Nov 25, 2011 09:12 AM CURRENT TOBACCO USER [facility] Feb 08, 2011 10:04 AM CURRENT TOBACCO USER [facility] May 01, 2010 10:24 AM CURRENT TOBACCO USER [facility] Jul 03, 2009 08:42 AM CURRENT TOBACCO USER [facility] Encounter Notes: All associated encounter notes [...] PSYCHIATRIST Signed: 07/16/2023 15:20 HUSAM MAYNARD V [facility]
--- OUTSIDE RECORDS SUMMARY | 2023-09-23 04:42 | XMS_ITS | Encounter Summary ---
Author Name [facility] [place] Address [address] [place] [address] Care Team Providers Care Repair Manager Name Role Phone PETTYKAREN Primary Care Provider [...] AID (WNR) Aug 08, 2013 MEDICAI D [id number] [phone] DERICK SKELTON PATIENT MEDICARE (WNR) MEDICARE (M) PART A Sep 07, 2016 PART A [id number] DERICK SKLETON PATIENT Selected Encounter This section includes the information on record at [place] for the Encounter. Date/Time Encounter Type Encounter Description Reason Pro vider Source July 16, 2023 03:57 PM Outpatient Encounter TELEPHONE [facility] Encounter Template Text not used by [place] Plan of Treatment: Future Appointments (+ 6 months) and Future Tests (+/- 45 days) The Plan of Treatment section includes future care activities for the patient from all [place] treatmentfacilities. This section includes future appointments and future orders which are active, pending or scheduled. Future Appointments This section includes appointments that were scheduled to occur 6 months from the date of the Encounter, up to a maximum of 20 appointments. The data comes from all [place] treatment facilities. Appointment Date/Time Appointment Type Appointme nt Facility Name August 07, 2023 02:27 PM [facility] Aug 25, 2023 11:45 AM [facility] Sep 23, 2023 08:15 AM AMBULATORY - NONE [facility] Sep 23, 2023 09:15 AM [facility] Active, Pending, and Scheduled Orders This section includes a listing of several types of active, pending, and scheduled orders, including clinic medications orders, diagnostic test orders, procedure orders and consult orders; where the start date of the order is 45 days before the date of the Encounter or 45 days after the date of theEncounter. The data comes from all [place] treatment facilities. Test Date/Time Test Type Test Details Facility Name July 18, 2023 12:00 AM Laboratory - Chemi stry Order CBC BLOOD SP ONCE [facility] July 18, 2023 12:00 AM Laboratory - Chemi stry Order IRON GROUP SERUM SP [facility] Social History: Smoking Status (Most current) [...] 2022 09:15 AM VA-TOBACCO USER EVERY DAY [facility] Tobacco Use History This section includes a history of the smoking, or tobacco-related health factors, that were collected on or before the date of the Encounter. The data comes from the [place] facility where the Encounter took place. 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 NO [facility] Aug 20, 2022 09:15 AM VA-TOBACCO USE MED NO [facility] Aug 20, 2022 09:15 AM VA-TOBACCO USE WI 30 MIN OF WAKE UP [facility] Aug 20, 2022 09:15 AM VA-TOBACCO USER EVERY DAY [facility] Sep 12, 2021 09:15 AM VA-TOBACCO USE 30 YEARS OR MORE [facility] Sep 12, 2021 09:15 AM VA-TOBACCO USE ADVICE [facility] Sep 12, 2021 09:15 AM VA-TOBACCO USE POWERHOUSE MECHANIC HELPER NO [facility] Sep 12, 2021 09:15 AM VA-TOBACCO USE MED NO [facility] Sep 12, 2021 09:15 AM VA-TOBACCO USE WI 30 MIN OF WAKE UP [facility] Sep 12, 2021 09:15 AM VA-TOBACCO USER EVERY DAY [facility] Sep 01, 2020 01:30 PM VA-TOBACCO DOESNT USE WI 30 MIN WAKEUP [facility] Sep 01, 2020 01:30 PM VA-TOBACCO USE 30 YEARS OR MORE [facility] Sep 01, 2020 01:30 PM VA-TOBACCO USE ADVICE [facility] Sep 01, 2020 01:30 PM VA-TOBACCO USE POWERHOUSE MECHANIC HELPER NO [facility] Sep 01, 2020 01:30 PM VA-TOBACCO USE MED NO [facility] Sep 01, 2020 01:30 PM VA-TOBACCO USER EVERY DAY [facility] Sep 27, 2019 09:35 AM VA-TOBACCO USE 30 YEARS OR MORE [facility] Sep 27, 2019 09:35 AM VA-TOBACCO USE ADVICE [facility] Sep 27, 2019 09:35 AM VA-TOBACCO USE POWERHOUSE MECHANIC HELPER NO [facility] Sep 27, 2019 09:35 AM VA-TOBACCO USE MED NO [facility] Sep 27, 2019 09:35 AM VA-TOBACCO USE WI 30 MIN OF WAKE UP [facility] Sep 27, 2019 09:35 AM VA-TOBACCO USER EVERY DAY [facility] Mar 04, 2018 01:45 PM VA-TOBACCO USE 30 YEARS OR MORE [facility] Mar 04, 2018 01:45 PM VA-TOBACCO USE ADVICE [facility] Mar 04, 2018 01:45 PM VA-TOBACCO USE POWERHOUSE MECHANIC HELPER NO [facility] Mar 04, 2018 01:45 PM VA-TOBACCO USE MED NO [facility] Mar 04, 2018 01:45 PM VA-TOBACCO USE WI 30 MIN OF WAKE UP [facility] Mar 04, 2018 01:45 PM VA-TOBACCO USER EVERY DAY [facility] Apr 22, 2017 10:01 AM CURRENT TOBACCO USER [facility] Apr 16, 2016 09:52 AM CURRENT TOBACCO USER [facility] July 26, 2014 09:08 AM CURRENT TOBACCO USER [facility] Dec 31, 2013 10:06 AM CURRENT TOBACCO USER [facility] Sep 05, 2012 09:27 AM CURRENT TOBACCO USER [facility] Nov 25, 2011 09:12 AM CURRENT TOBACCO USER [facility] Feb 08, 2011 10:04 AM CURRENT TOBACCO USER [facility] May 01, 2010 10:24 AM CURRENT TOBACCO USER [facility] Jul 03, 2009 08:42 AM CURRENT TOBACCO USER [facility] Encounter Notes: All associated encounter notes [...] to clinic (RTC) Contact attempt made to [facility] 1st attempt Telephone 2nd attempt Letter - Sent letter by regular [place] mail to address on file: [place] [address], [place] [address] Disposition order request after July Unable to leave voice mail due to being full. Letter sent out. If [facility] calls back, schedule appt for: Barbara Phone [place] 30min tele appt /marli/ SHARRI GARZA Signed: 07/16/2023 15:59 SHARRI GARZA [facility]
--- OUTSIDE RECORDS SUMMARY | 2023-09-23 04:43 | XMS_ITS | Encounter Summary ---
Author Name [facility] [place] Address [address] [place] [address] Care Team Providers Care Gallery Or Museum Curator Name Role Phone PETTY KAREN Primary Care [...] AID (WNR) Aug 08, 2013 MEDICAI D [id number] [phone] DERICK SKELTON PATIENT MEDICARE (WNR) MEDICARE (M) PART A Sep 07, 2016 PART A [id number] DERICK SKELTON PATIENT Selected Encounter This section [...] 23, 2022 07:00 AM AMBULATORY - NONE [facility] Oct 28, 2022 05:00 PM AMBULATORY - REHAB [facility]IN [facility] Nov 01, 2022 09:00 AM AMBULATORY - REHAB MEDICIN E [facility] Nov 13, 2022 09:00 AM [facility] [place] [facility] Nov 20, 2022 08:00 AM [facility] Dec 05, 2022 10:15 AM AMBULATORY - SURGERY [facility] Dec 30, 2022 10:15 AM AMBULATORY - SURGERY [facility] Mar 05, 2023 09:00 AM AMBUL[facility] Mar 12, 2023 09:00 AM AMBUL[facility] Apr 01, 2023 09:15 AM AMBULATORY - NONE [facility] Apr 01, 2023 10:15 AM [facility] Apr 08, 2023 09:30 AM [facility] Apr 22, 2023 07:00 AM AMBULATORY - NONE [facility] Social History: Smoking Status (Most [...] 2022 09:15 AM VA-TOBACCO USER EVERY DAY [facility] Tobacco Use History This section includes a history of the smoking, or tobacco-related health factors, that were collected on or before the date of the Encounter. The data comes from the [place] facility where the Encounter took place. 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 NO [facility] Aug 20, 2022 09:15 AM VA-TOBACCO USE MED NO [facility] Aug 20, 2022 09:15 AM VA-TOBACCO USE WI 30 MIN OF WAKE UP [facility] Aug 20, 2022 09:15 AM VA-TOBACCO USER EVERY DAY [facility] Sep 12, 2021 09:15 AM VA-TOBACCO USE 30 YEARS OR MORE [facility] Sep 12, 2021 09:15 AM VA-TOBACCO USE ADVICE [facility] Sep 12, 2021 09:15 AM VA-TOBACCO USE BLUE PRINT CONTROL CLERK NO [facility] Sep 12, 2021 09:15 AM VA-TOBACCO USE MED NO [facility] Sep 12, 2021 09:15 AM VA-TOBACCO USE WI 30 MIN OF WAKE UP [facility] Sep 12, 2021 09:15 AM VA-TOBACCO USER EVERY DAY [facility] Sep 01, 2020 01:30 PM VA-TOBACCO DOESNT USE WI 30 MIN WAKEUP [facility] Sep 01, 2020 01:30 PM VA-TOBACCO USE 30 YEARS OR MORE [facility] Sep 01, 2020 01:30 PM VA-TOBACCO USE ADVICE [facility] Sep 01, 2020 01:30 PM VA-TOBACCO USE BLUE PRINT CONTROL CLERK NO [facility] Sep 01, 2020 01:30 PM VA-TOBACCO USE MED NO [facility] Sep 01, 2020 01:30 PM VA-TOBACCO USER EVERY DAY [facility] Sep 27, 2019 09:35 AM VA-TOBACCO USE 30 YEARS OR MORE [facility] Sep 27, 2019 09:35 AM VA-TOBACCO USE ADVICE [facility] Sep 27, 2019 09:35 AM VA-TOBACCO USE BLUE PRINT CONTROL CLERK NO [facility] Sep 27, 2019 09:35 AM VA-TOBACCO USE MED NO [facility] Sep 27, 2019 09:35 AM VA-TOBACCO USE WI 30 MIN OF WAKE UP [facility] Sep 27, 2019 09:35 AM VA-TOBACCO USER EVERY DAY [facility] Mar 04, 2018 01:45 PM VA-TOBACCO USE 30 YEARS OR MORE [facility] Mar 04, 2018 01:45 PM VA-TOBACCO USE ADVICE [facility] Mar 04, 2018 01:45 PM VA-TOBACCO USE BLUE PRINT CONTROL CLERK NO [facility] Mar 04, 2018 01:45 PM VA-TOBACCO USE MED NO [facility] Mar 04, 2018 01:45 PM VA-TOBACCO USE WI 30 MIN OF WAKE UP [facility] Mar 04, 2018 01:45 PM VA-TOBACCO USER EVERY DAY [facility] Apr 22, 2017 10:01 AM CURRENT TOBACCO USER [facility] Apr 16, 2016 09:52 AM CURRENT TOBACCO USER [facility] July 26, 2014 09:08 AM CURRENT TOBACCO USER [facility] Dec 31, 2013 10:06 AM CURRENT TOBACCO USER [facility] Sep 05, 2012 09:27 AM CURRENT TOBACCO USER [facility] Nov 25, 2011 09:12 AM CURRENT TOBACCO USER [facility] Feb 08, 2011 10:04 AM CURRENT TOBACCO USER [facility] May 01, 2010 10:24 AM CURRENT TOBACCO USER [facility] Jul 03, 2009 08:42 AM CURRENT TOBACCO USER [facility] Radiology Reports: +/- 30 days of the [...] the Encounter. The data comes from all [facility] facilities. Date/Time Radiology Report Provider Source Oct 16, 2022 01:43 PM DXA BONE DENSITY: FRANCES SKELTON [id number] -[id number] M Exm Date: OCT 16, 2022@13:43 Req Phys: KAREN DOVE Pat Loc: [facility] PACT CHANTEL 4D (Req'g Loc) Img Loc: NUC MED Service: Unknown (Case [id number] COMPLETE) DXA BONE DENSITY AXIAL (NM Detailed) CPT:56221 Reason for Study: eval for low bone density (Case [id number] COMPLETE) TRABECULAR BONE SCORE (TBS) W/ IN(NM Detailed) CPT:62791 Clinical History: IS NOT under investigation for COVID-19 or is COVID-19 negative Frequent falls, h/o EtOH and cigarette use, eval for low bone density Responsible provider name and phone number to notify for critical findings if other than user placing the order and pager listed below: User placing orders pager: [phone] LAST CREATININE 1.2 (08/20/22) Report Status: Verified Date Reported: OCT 21, 2022 Date Verified: OCT 21, 2022 Manager Of Internal E-Sig:/ES/MARQUITA BUTTERFIELD MD Report: EXAMINATION: DXA Bone Density Scan INDICATION: Evaluate for low bone density.Frequent falls. History of alcohol and cigarette use. CLINICAL INFORMATION: Smoking history, drinking three or more alcoholic per day. TESTING SPECIALIST: Apportable. Model: [employer] A. TECHNIQUE/LIMITATIONS: The technical quality of the [...] Impression: Diagnosis (WHO Classification): Osteopenia. I, Marquita Btuterfield, have reviewed the images and report. Primary Diagnostic Code: SIGNIFICANT ABNORMALITY, ATTN NEEDED Primary Interpreting Staff: MARQUITA BUTTERFIELD MD, RADIOLOGY STAFF PHYSICIAN (Manager Of Internal) Primary Interpreting Resident: ASHLEY CUNNINGHAM DO, CARD GRADER /MARQUITA GONSALEZ [facility] Encounter Notes: All associated encounter notes This section contains the clinical notes associated to the Encounter. Date/Time Encounter Note(s) Provider Source Oct 21, 2022 10:44 AM NO SHOW NOTE: LOCAL TITLE: NO SHOW/CANCELLATION CLINIC NOTE STANDARD TITLE: NO SHOW NOTE DATE OF NOTE: OCT 21, 2022@10:44 ENTRY DATE: OCT 21, 2022@10:44:56 AUTHOR: SAROJ GARZA EXP COSIGNER: URGENCY: STATUS: COMPLETED Kotlik not seen for scheduled appointment due to: No Show The did not present to the wheelchair clinic for his ADVANCED MOBILITY appointment. OT will be happy to see him if/when he reschedules. Appointment Rescheduled: Please review patient chart and medications for renewal needs (if appropriate). /marli/ SAROJ GARZA OTR/L Signed: 10/21/2022 10:46 SAROJ GARZA [facility]
--- OUTSIDE RECORDS SUMMARY | 2023-09-23 04:43 | XMS_ITS | Encounter Summary ---
Author Name [place] Address [address] [place] [address] Care Team Providers Care Instructor Looping Name Role Phone PETTY KAREN Primary Care [...] AID (WNR) Aug 08, 2013 MEDICAI D [id number] [phone] DERICK SKELTON PATIENT MEDICARE (WNR) MEDICARE (M) PART A Sep 07, 2016 PART A [id number] DERICK SKELTON PATIENT Selected Encounter This section includes the information on record at [place] for the Encounter. Date/Time Encounter Type Encounter Description Reason Provider Source Oct 21, 2022 07:56 AM Outpatient Encounter PM&RS PHYSICIAN ICD-10-CM R26.9 Unspecified abnormalities of gait and mobility [facility] Encounter Template Text not used by [place] Assessments - Encounter Diagnoses This section includes the primary and secondary diagnoses documented for the Encounter. Date/Time Primary/Secondary Diagnosis Diagnosis Name Provider Source Oct 21, 2022 08:09 AM PRIMARY Unspecified abnormalities of gait and mobility [facility] Plan of Treatment: Future Appointments (+ 6 months) and Future Tests (+/- 45 days) The Plan of Treatment section includes future care activities for the patient from all [place] [facility] This section includes future appointments and future orders which are active, pending or scheduled. Future Appointments This section includes appointments that were scheduled to occur 6 months from the date of the Encounter, up to a maximum of 20 appointments. The data comes from all [facility]. Appointment Date/Time Appointment Type Appointme nt Facility Name Oct 23, 2022 07:00 AM AMBULATORY - NONE [facility] Oct 28, 2022 05:00 PM AMBULATORY - REHAB MEDICIN E [facility] Nov 01, 2022 09:00 AM AMBULATORY - REHAB MEDICIN E [facility] Nov 13, 2022 09:00 AM AMBULATORY [place] [facility] Nov 20, 2022 08:00 AM AMBULAT[facility] [place] [facility] Dec 05, 2022 10:15 AM AMBULATORY - SURGERY [facility] Dec 30, 2022 10:15 AM AMBULATORY - SURGERY [facility] Mar 05, 2023 09:00 AM AMBULATORY [place]RY [facility] Mar 12, 2023 09:00 AM AMBULATORY [facility] Apr 01, 2023 09:15 AM AMBULATORY - NONE [facility] Apr 01, 2023 10:15 AM AMBULATORY - MEDICINE [facility] Apr 08, 2023 09:30 AM AMBULATORY - MEDICINE [facility] Apr 22, 2023 07:00 AM AMBULATORY - NONE [facility] Social History: Smoking Status (Most current) and Tobacco Use (All prior to encounter date) This section includes the most current, and the historical, smoking and tobacco- related health factors from the [place] facility where the Encounter took place. Current Smoking Status This section includes the most current smoking, or tobacco-related health factor, from the [place] facility where the Encounter took place. Date/Time Current Smoking Status Comment Facil ity Aug 20, 2022 09:15 AM VA-TOBACCO USER EVERY DAY [facility] Tobacco Use History This section includes a history of the smoking, or tobacco-related health factors, that were collected on or before the date of the Encounter. The data comes from the [place] facility where the Encounter took place. Date/Time Smoking Status/Tobacco Use Comment F acility Aug 20, 2022 09:15 AM VA-TOBACCO USE ADVICE [facility] Aug 20, 2022 09:15 AM VA-TOBACCO USE BRIDGE TOLL COLLECTOR NO [facility] Aug 20, 2022 09:15 AM VA-TOBACCO USE MED NO [facility] Aug 20, 2022 09:15 AM VA-TOBACCO USE WI 30 MIN OF WAKE UP [facility] Aug 20, 2022 09:15 AM VA-TOBACCO USER EVERY DAY [facility] Sep 12, 2021 09:15 AM VA-TOBACCO USE 30 YEARS OR MORE [facility] Sep 12, 2021 09:15 AM VA-TOBACCO USE ADVICE [facility] Sep 12, 2021 09:15 AM VA-TOBACCO USE BRIDGE TOLL COLLECTOR NO [facility] Sep 12, 2021 09:15 AM VA-TOBACCO USE MED NO [facility] Sep 12, 2021 09:15 AM VA-TOBACCO USE WI 30 MIN OF WAKE UP [facility] Sep 12, 2021 09:15 AM VA-TOBACCO USER EVERY DAY [facility] Sep 01, 2020 01:30 PM VA-TOBACCO DOESNT USE WI 30 MIN WAKEUP [facility] Sep 01, 2020 01:30 PM VA-TOBACCO USE 30 YEARS OR MORE [facility] Sep 01, 2020 01:30 PM VA-TOBACCO USE ADVICE [facility] Sep 01, 2020 01:30 PM VA-TOBACCO USE BRIDGE TOLL COLLECTOR NO [facility] Sep 01, 2020 01:30 PM VA-TOBACCO USE MED NO [facility] Sep 01, 2020 01:30 PM VA-TOBACCO USER EVERY DAY [facility] Sep 27, 2019 09:35 AM VA-TOBACCO USE 30 YEARS OR MORE [facility] Sep 27, 2019 09:35 AM VA-TOBACCO USE ADVICE [facility] Sep 27, 2019 09:35 AM VA-TOBACCO USE BRIDGE TOLL COLLECTOR NO [facility] Sep 27, 2019 09:35 AM VA-TOBACCO USE MED NO [facility] Sep 27, 2019 09:35 AM VA-TOBACCO USE WI 30 MIN OF WAKE UP [facility] Sep 27, 2019 09:35 AM VA-TOBACCO USER EVERY DAY [facility] Mar 04, 2018 01:45 PM VA-TOBACCO USE 30 YEARS OR MORE [facility] Mar 04, 2018 01:45 PM VA-TOBACCO USE ADVICE [facility] Mar 04, 2018 01:45 PM VA-TOBACCO USE BRIDGE TOLL COLLECTOR NO [facility] Mar 04, 2018 01:45 PM VA-TOBACCO USE MED NO [facility] Mar 04, 2018 01:45 PM VA-TOBACCO USE WI 30 MIN OF WAKE UP [facility] Mar 04, 2018 01:45 PM VA-TOBACCO USER EVERY DAY [facility] Apr 22, 2017 10:01 AM CURRENT TOBACCO USER [facility] Apr 16, 2016 09:52 AM CURRENT TOBACCO USER [facility] July 26, 2014 09:08 AM CURRENT TOBACCO USER [facility] Dec 31, 2013 10:06 AM CURRENT TOBACCO USER [facility] Sep 05, 2012 09:27 AM CURRENT TOBACCO USER [facility] Nov 25, 2011 09:12 AM CURRENT TOBACCO USER [facility] Feb 08, 2011 10:04 AM CURRENT TOBACCO USER [facility] May 01, 2010 10:24 AM CURRENT TOBACCO USER [facility] Jul 03, 2009 08:42 AM CURRENT TOBACCO USER [facility] Radiology Reports: +/- 30 days [...] the Encounter. The data comes from all [facility] facilities. Date/Time Radiology Report Provider Source Oct 16, 2022 01:43 PM DXA BONE DENSITY: FRANCES SKELTON [id number] -[id number] Ex Date: OCT 16, 2022@13:43 Req Phys: KAREN DOVE Pat Loc: [facility] PACT CHANTEL 4D (Req'g Loc) Img Loc: NUC MED Service: Unknown (Case [id number] COMPLETE) DXA BONE DENSITY AXIAL (NM Detailed) CPT:03925 Reason for Study: eval for low bone density (Case 1832 COMPLETE) TRABECULAR BONE SCORE (TBS) W/ IN(NM Detailed) CPT:63528 Clinical History: [place] IS NOT under investigation for COVID-19 or is COVID-19 negative Frequent falls, h/o EtOH and cigarette use, eval for low bone density Responsible provider name and phone number to notify for critical findings if other than user placing the order and pager listed below: User placing orders pager: [phone] LAST CREATININE 1.2 (08/20/22) Report Status: Verified Date Reported: OCT 21, 2022 Date Verified: OCT 21, 2022 Agents' Records Clerk E-Sig:/MERRILL/MARQUITA BUTTERFIELD MD Report: EXAMINATION: DXA Bone Density Scan INDICATION: Evaluate for low bone density.Frequent falls. History of alcohol and cigarette use. CLINICAL INFORMATION: Smoking history, drinking three or more alcoholic per day. CUSTOMER EXPERIENCE CONSULTANT: Feusd. Model: [employer] A. TECHNIQUE/LIMITATIONS: The technical quality [...] Staff: MARQUITA BUTTERFIELD MD, RADIOLOGY STAFF PHYSICIAN (Agents' Records Clerk) Primary Interpreting Resident: ASHLEY CUNNINGHAM DO, DIRECTOR OF CONSTRUCTION /MARQUITA GONSALEZ [facility] Encounter Notes: All associated encounter [...] shower transfers. He has been referred for [facility] for low thresehold shower. Given his condition and diagnosis, he meets criteria for this and request is approved. Total time spent on e-consult: 5-10 min /merrill/ MELISSA EL MD STAFF PHYSICIAN Signed: 10/21/2022 08:09 [facility]ELISSA EL [facility]
--- OUTSIDE RECORDS SUMMARY | 2023-09-23 04:43 | XMS_ITS | Encounter Summary ---
Author Name [facility] [place] Address [address] [place] [address] Care Team Providers Care Domestic Technician Name Role Phone PETTYKAREN Primary Care Provider [...] AID (WNR) Aug 08, 2013 MEDICAI D [id number] [phone] DERICK SKELTON PATIENT MEDICARE (WNR) MEDICARE (M) PART A Sep 07, 2016 PART A [id number] DERICK SKELTON PATIENT Selected Encounter This section includes the information on record at [place] for the Encounter. Date/Time Encounter Type Encounter Description Reason Pro vider Source July 17, 2023 12:17 PM Outpatient Encounter TELEPHONE [facility] Encounter Template Text not used by [place] Plan of Treatment: Future Appointments (+ 6 months) and Future Tests (+/- 45 days) The Plan of Treatment section includes future care activities for the patient from all [place] treatmentfacilities. This section includes future appointments and future orders which are active, pending or scheduled. Future Appointments This section includes appointments that were scheduled to occur 6 months from the date of the Encounter, up to a maximum of 20 appointments. The data comes from all [place] treatment facilities. Appointment Date/Time Appointment Type Appointme nt Facility Name August 07, 2023 02:27 PM AMBULATORY - NONE [facility] Aug 25, 2023 11:45 AM AMBULATORY - NONE [facility] Sep 23, 2023 08:15 AM [facility] Sep 23, 2023 09:15 AM [facility] Active, Pending, and Scheduled Orders This section includes a listing of several types of active, pending, and scheduled orders, including clinic medications orders, diagnostic test orders, procedure orders and consult orders; where the start date of the order is 45 days before the date of the Encounter or 45 days after the date of theEncounter. The data comes from all [place] treatment facilities. Test Date/Time Test Type Test [...] and tobacco- related health factors from the [place] facility where the Encounter took place. Current [...] Aug 20, 2022 09:15 AM VA-TOBACCO USE FIELD CONSULTANT NO [facility] Aug 20, 2022 09:15 [...] Sep 12, 2021 09:15 AM VA-TOBACCO USE FIELD CONSULTANT NO [facility] Sep 12, 2021 09:15 [...] Sep 01, 2020 01:30 PM VA-TOBACCO USE FIELD CONSULTANT NO [facility] Sep 01, 2020 01:30 PM VA-TOBACCO USE MED NO [facility] Sep 01, 2020 01:30 PM VA-TOBACCO USER EVERY DAY [facility] Sep 27, 2019 09:35 AM VA-TOBACCO USE 30 YEARS OR MORE [facility] Sep 27, 2019 09:35 AM VA-TOBACCO USE ADVICE [facility] Sep 27, 2019 09:35 AM VA-TOBACCO USE FIELD CONSULTANT NO [facility] Sep 27, 2019 09:35 [...] Mar 04, 2018 01:45 PM VA-TOBACCO USE FIELD CONSULTANT NO [facility] Mar 04, 2018 01:45 [...] JACKIE PROCTOR EXP COSIGNER: URGENCY: STATUS: COMPLETED [place] was called on 07/15 along with letter sent and also called on 07/16. This is the FINAL Attempt- Called to (re)schedule appointment with provider. No answer, voicemail box is full and unable to leave message. No further attempts will be made to contact [place]. Alerting provider. /marli/ JACKIE PROCTOR Signed: 07/18/2023 10:32 Receipt Acknowledged By: 07/21/2023 08:13 /marli/ OCTAVIANO HEWITT RN REGISTERED NURSE 07/22/2023 16:51 /marli/ Caroal Alicea M.D., Ph.D. STAFF PSYCHIATRIST --- Original Document --- 07/17/23 APPOINTMENT SCHEDULING NOTE: Attempted to schedule Return to clinic (RTC) Contact attempt made to [place] 1st attempt Telephone 2nd attempt Letter - Sent letter by regular [place] mail to address on file: [address] [address] [place], [place] [address] Disposition order request after July Left message on voice mail to call back to this number [phone] If calls back, schedule appt for: [facility] RANCHO ALICEA /marli/ MARVEL PITTS SHIPS OR BARGES LOADER Signed: 07/17/2023 12:18 JACKIE PROCTOR [facility] July 17, 2023 12:17 PM REPORT OF [...] mail to address on file: [address] [address] [place], [place] [address] Disposition order request after July Left message on voice mail to call back to this number [phone] If calls back, schedule appt for: [facility] PHONE CAESAR /marli/ MARVEL PITTS SHIPS OR BARGES LOADER Signed: 07/17/2023 12:18 07/18/2023 ADDENDUM STATUS: COMPLETED [place] was called on 07/15 along with letter sent and also called on 07/16. This is the FINAL Attempt- Called [place] to (re)schedule appointment with provider. No answer, voicemail box is full and unable to leave message. No further attempts will be made to contact . Alerting provider. /marli/ JACKIE PROCTOR Signed: 07/18/2023 10:32 Receipt Acknowledged By: * AWAITING SIGNATURE * OCTAVIANO HEWITT * AWAITING SIGNATURE * CAROLA ALICEA MICHELE A [facility]
--- OUTSIDE RECORDS SUMMARY | 2023-09-23 04:44 | XMS_ITS | Encounter Summary ---
Author Name [facility] [place] [facility] [place] [facility] [place] Address [address] [place] [address] Care Team Providers Care Diamond Assorter Name Role Phone PETTY KAREN Primary Care [...] AID (WNR) Aug 08, 2013 MEDICAI D [id number] [phone] DERICK SKELTON PATIENT MEDICARE (WNR) MEDICARE (M) PART A Sep 07, 2016 PART A [id number] [phone] DERICK SKELTON PATIENT Selected Encounter This section includes the information on record at [place] for the Encounter. Date/Time Encounter Type Encounter Description Reason Provider Source Nov 01, 2022 09:00 AM WHEELCHAIR MNGMENT TRAINING WHEELCHAIR & ADVAN MOBILITY ICD-10-CM Z74.09 Other reduced mobility SAROJ GARZA Gillian Encounter Template Text not used by [place] Assessments - Encounter Diagnoses This section includes the primary and secondary diagnoses documented for the Encounter. Date/Time Primary/Secondary Diagnosis Diagnosis Name Provider Source Nov 01, 2022 03:37 PM PRIMARY Other reduced mobility SAROJ AGRZA [facility] Plan of Treatment: Future Appointments (+ 6 months) and Future Tests (+/- 45 days) The Plan of Treatment section includes future care activities for the patient from all [place] [facility]. This section includes future appointments and future orders which are active, pending or scheduled. Future Appointments This section includes appointments that were scheduled to occur 6 months from the date of the Encounter, up to a maximum of 20 appointments. The data comes from all [facility] facilities. Appointment Date/Time Appointment Type Appointme nt Facility Name Nov 13, 2022 09:00 AM AMBULATORY [place]ATRY [place] [facility] Nov 20, 2022 08:00 AM AMBULATORY [place]ATRY [place] [facility] Dec 05, 2022 10:15 AM AMBULATORY - SURGERY [facility] Dec 30, 2022 10:15 AM AMBULATORY - SURGERY [facility] Mar 05, 2023 09:00 AM AMBULATORY [place]ATRY [place] [facility] Mar 12, 2023 09:00 AM AMBULATORY [place]AT[place] [facility] Apr 01, 2023 09:15 AM AMBULATORY - NONE [facility] Apr 01, 2023 10:15 AM AMBULATORY - MEDICINE [facility] Apr 08, 2023 09:30 AM [facility] Apr 22, 2023 07:00 AM AMBULATORY - NONE [facility] May 01, 2023 09:00 AM AMBULATORY - MEDICINE [facility] Social History: Smoking Status (Most [...] Aug 20, 2022 09:15 AM VA-TOBACCO USE TALENT RECRUITER NO [facility] Aug 20, 2022 [...] Sep 12, 2021 09:15 AM VA-TOBACCO USE TALENT RECRUITER NO [facility] Sep 12, 2021 [...] Sep 01, 2020 01:30 PM VA-TOBACCO USE TALENT RECRUITER NO [facility] Sep 01, 2020 01:30 PM VA-TOBACCO USE MED NO [facility] Sep 01, 2020 01:30 PM VA-TOBACCO USER EVERY DAY [facility] Sep 27, 2019 09:35 AM VA-TOBACCO USE [address] [facility] Sep 27, 2019 09:35 AM VA-TOBACCO USE ADVICE [facility] Sep 27, 2019 09:35 AM VA-TOBACCO USE TALENT RECRUITER NO [facility] Sep 27, 2019 [...] Mar 04, 2018 01:45 PM VA-TOBACCO USE TALENT RECRUITER NO [facility] Mar 04, 2018 [...] AM CURRENT TOBACCO USER [facility] Radiology Reports: +/- 30 days of [...] Encounter. The data comes from all [facility] facilities. Date/Time Radiology Report Provider Source Oct 16, 2022 01:43 PM DXA BONE DENSITY: FRANCES SKELTON [id number] -[id number] M Exm Date: OCT 16, 2022@13:43 Req Phys: KAREN DOVE Pat Loc: [facility] PACT CHANTEL 4D (Req'g Loc) Img Loc: [facility] MED Service: Unknown (Case [id number] COMPLETE) DXA BONE DENSITY AXIAL (NM Detailed) CPT:05117 Reason for Study: eval for low bone density (Case [id number] COMPLETE) TRABECULAR BONE SCORE (TBS) W/ IN(NM Detailed) CPT:44250 Clinical History: [place] IS NOT under investigation for COVID-19 or is COVID-19 negative Frequent falls, h/o EtOH and cigarette use, eval for low bone density Responsible provider name and phone number to notify for critical findings if other than user placing the order and pager listed below: User placing orders pager: [phone] LAST CREATININE 1.2 (08/20/22) Report Status: Verified Date Reported: OCT 21, 2022 Date Verified: OCT 21, 2022 Community Integration Specialist E-Sig:/ES/AIRAM BUTTERFIELD MD Report: EXAMINATION: DXA Bone Density Scan INDICATION: Evaluate for low bone density.Frequent falls. History of alcohol and cigarette use. CLINICAL INFORMATION: Smoking history, drinking three or more alcoholic per day. 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 Model: Horizon A. TECHNIQUE/LIMITATIONS: The technical quality [...] Staff: AIRAM BUTTERFIELD MD, RADIOLOGY STAFF PHYSICIAN (Community Integration Specialist) Primary Interpreting Resident: ASHLEY CUNNINGHAM DO, ENTRY LEVEL PROGRAMMER /AIRAM GONSALEZ [facility] Encounter Notes: All associated [...] Provided Mobility Device Informational hand out and [facility] - Wheelchair Clinic Power Mobility handout and reviewed charging of batteries, Storage Cleaning, Brake release, outdoor use, and wheelchair replacement. Vet was provided wheelchair clinic and Prosthetics phone numbers. Upon receiving the quote, a consult will be placed to prosthetics. Once the scooter arrives to the [facility], the will be contacted by lift vendor to install lift and deliver the scooter. Vehicle information: (2005), (Jeep), ([facility]) [place] Preference for lift type: hitch lift RECOMMENDATIONS: - Can Bender scooter, all weather cover and [place] Patch - Hitch lift PLAN: Goal to [...] Incontinence (ICD-9-CM 788.33) Heavy tobacco smoker (SCT [id number] (ICD-9-CM 784.0) Numbness (ICD-9-CM 782.0) Depression (SCT 70124951) Alc Dependence, NOS (ICD-9-CM 303.90) HYPERCHOLESTEROLEMIA (ICD-9-CM 272.0) Chronic post-traumatic stress disorder fParesis (Pathologic Function) (ICD-9-CM 344.9) Lumbar Pain (ICD-9-CM 724.2) Cocaine Depend, Remiss (ICD-9-CM 304.23) Cannabis Abuse, Cont (ICD-9-CM 305.21) Depressive episode (SCT 71074585) MDD, Recurrent, unspec (ICD-9-CM 296.30)Abstinent alcoholic (SCT 726669887) Muscle Weakness (ICD-9-CM 728.87) Idiopathic chronic neuropathy (SCT 889003177) Other and unspecified injury to knee, leColonic Polyps (ICD-9-CM 211.3) Screening for other specified conditionsRash and other nonspecific skin eruption (ICD-9-CM 782.1) Malign Neopl Prostate (ICD-9-CM 185.) Neuroma, Digital/Bay's (ICD-9-CM 355.6) Iron deficiency anemia (ICD-9-CM 280.9) Adrenal mass (ICD-9-CM 255.8) Hip pain (ICD-9-CM 719.45) Back pain (SCT 057768916) Hypomagnesemia (SCT 088184799) Lumbar spondylosis (SCT 517047320) SUBJECTIVE: I need to be comfortable Identified [...] Seating and mobility equipment on prosthetics record: . 09/04/22 1 ROLLATOR - I [place] 09/04/22 188.75 ROLLATOR - F-22 NITRO STANDARD (DRIVE) ([id number]) 7. 08/30/22 1 W/C-MANUAL I [facility] 09/12/22 672.15 8. 08/29/22 1 * I [id number] 80.00 9. 08/20/22 1 CURVE CUSH I THE COMFOR 08/20/22 40.79 CURVE CUSHION/18X16 [id number] . 08/22/20 1 CURVE CUSH I THE COMFOR 08/22/20 40.79 CURVE 18X16 21. 08/22/20 1 RAMP/MODUL X NEXT DAY A 09/05/20 190.75 -THRESHOLD RAMP AT FRONT DOOR . 08/22/20 1 MEDICAL EQ X NEXT DAY A 09/05/20 100.00 24. 11/08/19 1 RAMP/MODUL I NEXT DAY A 11/17/19 3904.82 MODULAR RAMP W/MESH SURFACE 26. 02/02/19 1 CANE TIP - I KREISERS 02/02/19 9.99 CANE TIP - ICE SENIOR PROCESS CONTROL TECH ATTACHMENT ([phone]) 69. 10/08/10 1 W/C,MANUAL I [facility] 618 [id number] 10/08/10 357.86 18 x 18 [id number] 70. 10/08/10 1 CUSHION-GE I ADVANCED T 10/08/10 36.02 18 x 18 Geomat 74. 02/15/11 1 CANE/INV I INVACARE C 618 04/24/10 [...] immersion ( sitting on the cushion) Front rwrt-ms-ipwrf height = ___19.5__ Floor to wheelchair seat [...] GARZA OTR/L Signed: 11/04/2022 08:30 SAROJ GARZA [facility]
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
--- OUTSIDE RECORDS SUMMARY | 2023-09-23 04:44 | XMS_ITS | Encounter Summary ---
Author Name [facility] Organization [facility] [place] Address [address] [place] [address] Care Team Providers Care General Ledger Accountant Name Role Phone PETTY KAREN Primary Care [...] AID (WNR) Aug 08, 2013 MEDICAI D [id number] [phone] DERICK SKELTON PATIENT MEDICARE (WNR) MEDICARE (M) PART A Sep 07, 2016 PART A [id number] [phone] DERICK SKELTON PATIENT Selected Encounter This section includes the information on record at [place] for the Encounter. Date/Time Encounter Type Encounter Description Reason Pro vider Source Nov 13, 2022 09:00 AM Outpatient Encounter [facility] Encounter Template Text not used by [...] 20, 2022 08:00 AM AMBULATORY [facility]AT[facility] Dec 05, 2022 10:15 AM AMBULATORY - SURGERY [facility] Dec 30, 2022 10:15 AM AMBULATORY - SURGERY [facility] Mar 05, 2023 09:00 AM AMBUL[facility]ORY [facility]ATRY [facility] Mar 12, 2023 09:00 AM AM[facility] Apr 01, 2023 09:15 AM AM[facility] - NONE [facility] Apr 01, 2023 10:15 AM [facility] Apr 08, 2023 09:30 AM [facility] Apr 22, 2023 07:00 AM [facility] NONE [facility] May 01, 2023 09:00 AM [facility] Social History: Smoking Status (Most [...] place. Date/Time Current Smoking Status Comment Silvia itmarino Aug 20, 2022 09:15 AM VA-TOBACCO USER EVERY DAY [facility] Tobacco Use History This section includes a history of the smoking, or tobacco-related health factors, that were collected on or before the date of the Encounter. The data comes from the [place] facility where the Encounter took place. Date/Time Smoking Status/Tobacco Use Comment F acility Aug 20, 2022 09:15 AM VA-TOBACCO USE ADVICE [facility] Aug 20, 2022 09:15 AM VA-TOBACCO USE ELECTRICIAN JOURNEYMAN WIREMAN NO [facility] Aug 20, 2022 09:15 AM VA-TOBACCO USE MED NO [facility] Aug 20, 2022 09:15 AM VA-TOBACCO USE [place] 30 MIN OF WAKE UP [facility] Aug 20, 2022 09:15 AM VA-TOBACCO USER EVERY DAY [facility] Sep 12, 2021 09:15 AM VA-TOBACCO USE 30 YEARS OR MORE [facility] Sep 12, 2021 09:15 AM VA-TOBACCO USE ADVICE [facility] Sep 12, 2021 09:15 AM VA-TOBACCO USE ELECTRICIAN JOURNEYMAN WIREMAN NO [facility] Sep 12, 2021 09:15 AM VA-TOBACCO USE MED NO [facility] Sep 12, 2021 09:15 AM VA-TOBACCO USE WI 30 MIN OF WAKE UP [facility] Sep 12, 2021 09:15 AM VA-TOBACCO USER EVERY DAY [facility] Sep 01, 2020 01:30 PM VA-TOBACCO DOESNT USE WI 30 MIN WAKEUP [facility] Sep 01, 2020 01:30 PM VA-TOBACCO USE 30 YEARS OR MORE [facility] Sep 01, 2020 01:30 PM VA-TOBACCO USE ADVICE [facility] Sep 01, 2020 01:30 PM VA-TOBACCO USE ELECTRICIAN JOURNEYMAN WIREMAN NO [facility] Sep 01, 2020 01:30 PM VA-TOBACCO USE MED NO [facility] Sep 01, 2020 01:30 PM VA-TOBACCO USER EVERY DAY [facility] Sep 27, 2019 09:35 AM VA-TOBACCO USE 30 YEARS OR MORE [facility] Sep 27, 2019 09:35 AM VA-TOBACCO USE ADVICE [facility] Sep 27, 2019 09:35 AM VA-TOBACCO USE ELECTRICIAN JOURNEYMAN WIREMAN NO [facility] Sep 27, 2019 09:35 AM VA-TOBACCO USE MED NO [facility] Sep 27, 2019 09:35 AM VA-TOBACCO USE [place] 30 MIN OF WAKE UP [facility] Sep 27, 2019 09:35 AM VA-TOBACCO USER EVERY DAY [facility] Mar 04, 2018 01:45 PM VA-TOBACCO USE 30 YEARS OR MORE [facility] Mar 04, 2018 01:45 PM VA-TOBACCO USE ADVICE [facility] Mar 04, 2018 01:45 PM VA-TOBACCO USE ELECTRICIAN JOURNEYMAN WIREMAN NO [facility] Mar 04, 2018 01:45 PM VA-TOBACCO USE MED NO [facility] Mar 04, 2018 01:45 PM VA-TOBACCO USE WI 30 MIN OF WAKE UP [facility] Mar 04, 2018 01:45 PM VA-TOBACCO USER EVERY DAY [facility] Apr 22, 2017 10:01 AM CURRENT TOBACCO USER [facility] Apr 16, 2016 09:52 AM CURRENT TOBACCO USER [facility] July 26, 2014 09:08 AM CURRENT TOBACCO USER [facility] Dec 31, 2013 10:06 AM CURRENT TOBACCO USER [facility] Sep 05, 2012 09:27 AM CURRENT TOBACCO USER [facility] Nov 25, 2011 09:12 AM CURRENT TOBACCO USER [facility] Feb 08, 2011 10:04 AM CURRENT TOBACCO USER [facility] May 01, 2010 10:24 AM CURRENT TOBACCO USER [facility] Jul 03, 2009 08:42 AM CURRENT TOBACCO USER [facility] Radiology Reports: +/- 30 days of [...] the Encounter. The data comes from all [place] treatment facilities. Date/Time Radiology Report Provider Source Oct 16, 2022 01:43 PM DXA BONE DENSITY: FRANCES SKELTON [id number] -[id number] M Ex Date: OCT 16, 2022@13:43 Req Phys: KAREN DOVE Pat Loc: [facility] PACT CHANTEL 4D (Req'g Loc) Img Loc: [facility] Service: Unknown (Case [id number] COMPLETE) DXA BONE DENSITY AXIAL (NM Detailed) CPT:71571 Reason for Study: eval for low bone density (Case [id number] COMPLETE) TRABECULAR BONE SCORE (TBS) W/ IN(NM Detailed) CPT:83554 Clinical History: IS NOT under investigation for COVID-19 or is COVID-19 negative Frequent falls, h/o EtOH and cigarette use, eval for low bone density Responsible provider name and phone number to notify for critical findings if other than user placing the order and pager listed below: User placing orders pager: [phone] LAST CREATININE 1.2 (08/20/22) Report Status: Verified Date Reported: OCT 21, 2022 Date Verified: OCT 21, 2022 [employer] Account Assistant E-Sig:/ES/AIRAM BUTTERFIELD MD Report: EXAMINATION: DXA Bone Density Scan INDICATION: Evaluate for low bone density.Frequent falls. History of alcohol and cigarette use. CLINICAL INFORMATION: Smoking history, drinking three or more alcoholic per day. FINAL APPLICATION REVIEWER: Fon. Model: Horizon A. TECHNIQUE/LIMITATIONS: The technical quality [...] Staff: AIRAM BUTTERFIELD MD, RADIOLOGY STAFF PHYSICIAN ([employer] Account Assistant) Primary Interpreting Resident: ASHLEY CUNNINGHAM DO, SYSTEMS INTEGRATOR /AIRAM GONSALEZ [facility] Encounter Notes: All associated encounter notes [...] appear for scheduled appointment. Risk Factors: chronic [place]; poor health Protective Factors: has had much therapy Clinician Judgment of Risk: low; frquently no shows Plan Based on Clinician Judgment of Risk: per protocol Left message on AM to reschdule. ordered letter no show /marli/ Caroal Alicea M.D., Ph.D. STAFF PSYCHIATRIST Signed: 11/13/2022 13:05 Receipt Acknowledged By: 11/13/2022 16:02 /marli/ GENOVEVA RODAS [facility] FLOAT LEAD [facility] 11/13/2022 ADDENDUM STATUS: COMPLETED 1st Attempt- Made by Provider. 2nd Attempt- Bow sent a no show letter on ((11/13/2022)). Alerting [facility] to make remaining outreach. Please addendum this note for documentation. If there is no further contact from the RTC will be dispositioned on ((11/27/2022)). /marli/ GENOVEVA MARQUEZ [facility] FLOAT LEAD [facility] Signed: 11/13/2022 16:03 CAROLA ALICEA V [facility]
--- OUTSIDE RECORDS SUMMARY | 2023-09-23 04:45 | XMS_ITS | Encounter Summary ---
Author Name [facility] [place] Address [address] [place] [address] Care Team Providers Care Display Associate Name Role Phone PETTYGLEN Primary Care Provider Unavailabl e Insurance Providers: [...] AID (WNR) Aug 08, 2013 MEDICAI D [id number] [phone] DERICK SKELTON PATIENT MEDICARE (WNR) MEDICARE (M) PART A Sep 07, 2016 PART A [id number] [phone] DERICK SKELTON PATIENT Selected Encounter This section [...] 09:30 AM [place] [facility] Apr 22, 2023 07:00 AM [place]ONE [place] [facility] May 01, 2023 09:00 AM [facility] Jun 04, 2023 09:00 AM [facility] Jun 04, 2023 09:15 AM [facility] July 16, 2023 09:00 AM AMBULATORY - [place] [facility] August 07, 2023 02:27 PM AMBULATORY - NONE [place] [facility] Aug 25, 2023 11:45 AM AMBULATORY - NONE [place] [facility] Sep 23, 2023 08:15 AM AMBULATORY - NONE [place] [facility] Sep 23, 2023 09:15 AM [facility] Active, Pending, and Scheduled Orders This section includes a listing of several types of active, pending, and scheduled orders, including clinic medications orders, diagnostic test orders, procedure orders and consult orders; where the start date of the order is 45 days before the date of the Encounter or 45 days after the date of theEncounter. The data comes from all [facility]. Test Date/Time Test Type Test Details Facility Name Apr 29, 2023 12:00 AM Laboratory - Chemi stry Order CBC BLOOD SP [facility] Apr 29, 2023 12:00 AM Laboratory - Chemi stry Order BASIC METABOLIC PANEL+MG PLASMA SP ONCE [facility] Lab Results: +/- 30 days of the encounter This section includes the Chemistry and Hematology Lab Results on record with [place] for the patient. Radiology Reports and Pathology Reports are provided separately, in subsequent sections. Lab Results This section contains the Chemistry/Hematology Results that were resulted 30 days before or 30 daysafter the date of the Encounter. Date/Time Source Result Type Result - Unit Interpretation Reference Range Comment Apr 01, 2023 09:26 AM [facility] B 12 Specimen Type: SERUM No comment entered. Ordering Provider: GLEN DOVE Report Released Date/Time: Aug 20, 2022 09:56 AM Reporting Lab: [facility] [id number] Performing Lab: [facility] [id number] B 12 1040 pg/mL H 213-816 Apr 01, 2023 09:26 AM [facility] FOLATE Specimen Type: SERUM No comment entered. Ordering Provider: GLEN DOVE Report Released Date/Time: Aug 20, 2022 09:56 AM Reporting Lab: [facility] [id number] Performing Lab: [facility] [id number] FOLATE 13.6 ng/mL >7.0 Apr 01, 2023 09:26 AM [facility] VIT D 25-OH,TOTAL Specimen Type: SERUM No comment entered. Ordering Provider: GLEN DOVE Report Released Date/Time: Aug 20, 2022 09:56 AM Reporting Lab: [facility] [id number] Performing Lab: [facility] [id number] VIT D 25-OH,TOTAL 36 ng/mL 12-50 Apr 01, 2023 09:26 AM [facility] CBC Specimen Type: BLOOD No comment entered. Ordering Provider: GLEN DOVE Report Released Date/Time: Aug 20, 2022 09:56 AM Reporting Lab: [facility] [id number] Performing Lab: [facility] [id number] WBC 6.26 10*3/uL 4.0-11.0 RBC 3.02 10*6/uL L 4.6-6.2 HGB 8.9 g/dL L 13.5-17.9 HCT 28.2 L 41-54 MCV 93.4 fL 80-100 MCH 29.5 pg 27-33 MCHC 31.6 g/dL L 32.0-37.5 PLT 189 10*3/uL 150-400 MPV 10.3 fL 7.4-10.4 RDW 15.9 H 11.5-14.5 Apr 01, 2023 09:26 AM [facility] COMPREHENSIVE METABOLIC PANEL+MG Specimen Type: PLASMA No comment entered. Ordering Provider: GLEN DOVE Report Released Date/Time: Aug 20, 2022 09:56 AM Reporting Lab: [facility] [id number] Performing Lab: [facility] [id number] CREATININE 1.4 mg/dL H 0.7-1.2 UREA NITROGEN 16 mg/dL 8-26 GLUCOSE 103 mg/dL H 70-100 SODIUM 138 mmol/L 136-145 POTASSIUM 3.4 mmol/L L 3.5-5.1 CHLORIDE 105 mmol/L 98-107 CO2 26 mmol/L 22-29 CALCIUM 8.5 mg/dL 8.4-10.2 PROTEIN,TOTAL 6.3 g/dL 6.0-8.3 ALBUMIN 3.3 g/dL L 3.5-5.2 BILIRUBIN, TOTAL 0.3 mg/dL 0.2-1.2 MAGNESIUM 1.8 mg/dL 1.6-2.6 ANION GAP 7 mmol/L 5-15 ALKALINE PHOSPHATASE 93 U/L 40-150 ALT/SGPT 10 U/L <55 AST/SGOT 24 U/L <34 .CREAT EGFR(CKD-EPI) 54 L >60 Apr 01, 2023 09:26 AM [facility] RETICS Specimen Type: BLOOD Comment: Specimen received is PLASMA. Ordering Provider: GLEN DOVE Report Released Date/Time: Apr 01, 2023 10:44 AM Reporting Lab: [facility] [id number] Performing Lab: [facility] [id number] ABS RETIC 0.0416 10*6/uL 0.0300-0.1 000 .RETICULOCYTE 1.39 0.6-2.0 IMMATURE RETIC 16.6 H 1.0-14.0 .RETICULOCYTE HE 25.4 pg L 28.2-36.6 Apr 01, 2023 09:26 AM [facility] IRON GROUP Specimen Type: SERUM Comment: Specimen received is PLASMA. Ordering Provider: GLEN DOVE Report Released Date/Time: Apr 01, 2023 10:44 AM Reporting Lab: [facility] [id number] Performing Lab: [facility] [id number] IRON 35 ug/dL L 65-175 TIBC,CALCULATED 381 ug/dL 250-425 FERRITIN 16.8 ng/mL L 21.8-274.7 IRON SATURATION 9 L 20-50 TRANSFERRIN 305 mg/dL 163-382 Social History: Smoking Status (Most current) [...] 2022 09:15 AM VA-TOBACCO USER EVERY DAY [facility] Tobacco Use History This section includes a history of the smoking, or tobacco-related health factors, that were collected on or before the date of the Encounter. The data comes from the [place] facility where the Encounter took place. Date/Time Smoking Status/Tobacco Use Comment F acility Aug 20, 2022 09:15 AM VA-TOBACCO USE ADVICE [facility] Aug 20, 2022 09:15 AM VA-TOBACCO USE GOLD TOOLER NO [facility] Aug 20, 2022 09:15 AM VA-TOBACCO USE MED NO [facility] Aug 20, 2022 09:15 AM VA-TOBACCO USE [place] 30 MIN OF WAKE UP [facility] Aug 20, 2022 09:15 AM VA-TOBACCO USER EVERY DAY [facility] Sep 12, 2021 09:15 AM VA-TOBACCO USE 30 YEARS OR MORE [facility] Sep 12, 2021 09:15 AM VA-TOBACCO USE ADVICE [facility] Sep 12, 2021 09:15 AM VA-TOBACCO USE GOLD TOOLER NO [facility] Sep 12, 2021 09:15 AM VA-TOBACCO USE MED NO [facility] Sep 12, 2021 09:15 AM VA-TOBACCO USE WI 30 MIN OF WAKE UP [facility] Sep 12, 2021 09:15 AM VA-TOBACCO USER EVERY DAY [facility] Sep 01, 2020 01:30 PM VA-TOBACCO DOESNT USE WI 30 MIN WAKEUP [facility] Sep 01, 2020 01:30 PM VA-TOBACCO USE 30 YEARS OR MORE [facility] Sep 01, 2020 01:30 PM VA-TOBACCO USE ADVICE [facility] Sep 01, 2020 01:30 PM VA-TOBACCO USE GOLD TOOLER NO [facility] Sep 01, 2020 01:30 PM VA-TOBACCO USE MED NO [facility] Sep 01, 2020 01:30 PM VA-TOBACCO USER EVERY DAY [facility] Sep 27, 2019 09:35 AM VA-TOBACCO USE 30 YEARS OR MORE [facility] Sep 27, 2019 09:35 AM VA-TOBACCO USE ADVICE [facility] Sep 27, 2019 09:35 AM VA-TOBACCO USE GOLD TOOLER NO [facility] Sep 27, 2019 09:35 AM VA-TOBACCO USE MED NO [facility] Sep 27, 2019 09:35 AM VA-TOBACCO USE WI 30 MIN OF WAKE UP [facility] Sep 27, 2019 09:35 AM VA-TOBACCO USER EVERY DAY [facility] Mar 04, 2018 01:45 PM VA-TOBACCO USE 30 YEARS OR MORE [facility] Mar 04, 2018 01:45 PM VA-TOBACCO USE ADVICE [facility] Mar 04, 2018 01:45 PM VA-TOBACCO USE GOLD TOOLER NO [facility] Mar 04, 2018 01:45 PM VA-TOBACCO USE MED NO [facility] Mar 04, 2018 01:45 PM VA-TOBACCO USE WI 30 MIN OF WAKE UP [facility] Mar 04, 2018 01:45 PM VA-TOBACCO USER EVERY DAY [facility] Apr 22, 2017 10:01 AM CURRENT TOBACCO USER [facility] Apr 16, 2016 09:52 AM CURRENT TOBACCO USER [facility] July 26, 2014 09:08 AM CURRENT TOBACCO USER [facility] Dec 31, 2013 10:06 AM CURRENT TOBACCO USER [facility] Sep 05, 2012 09:27 AM CURRENT TOBACCO USER [facility] Nov 25, 2011 09:12 AM CURRENT TOBACCO USER [facility] Feb 08, 2011 10:04 AM CURRENT TOBACCO USER [facility] May 01, 2010 10:24 AM CURRENT TOBACCO USER [facility] Jul 03, 2009 08:42 AM CURRENT TOBACCO USER [facility] Pathology Reports: +/- 30 days of the [...] the Encounter. The data comes from all [facility]. Date/Time Pathology Report Provider Source Apr 09, 2023 02:30 PM LR SURGICAL PATHOL OGY REPORT: LOCAL TITLE: LR SURGICAL PATHOLOGY REPORT STANDARD TITLE: PATHOLOGY REPORT DATE OF NOTE: APR 09, 2023@14:30:01 ENTRY DATE: APR 09, 2023@14:30:01 AUTHOR: ANDERSON ZAMORA EXP COSIGNER: URGENCY: STATUS: COMPLETED $APHDR Reporting Lab: [facility] [CLIA# [id number]] [place] [address] - - - - - - - [...] 0.3 cm in greatest dimension. [facility] MICROSCOPIC DESCRIPTION: Microscopic examination performed. BB DIAGNOSIS: 1. Stomach, antrum body, biopsy-- - Reactive gastropathy - H. pylori stain: Negative 2. 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 - No evidence of dysplasia or malignancy /marli/ ANDERSON ZAMORA MD STAFF PATHOLOGIST Signed Apr 09, 2023@14:30 Performing Laboratory: Surgical Pathology Report Performed By: [facility] [CLIA# [id number]] [place] [address] $FTR - - - - - - [...] - - FRANCES SKELTON STANDARD FORM 515 ID:[id number] SEX:M :1950 AGE: 72 LOC:MSP GI COLONOSCOPY A PCP: Glen Dove MD /marli/ ANDERSON ZAMORA MD STAFF PATHOLOGIST Signed: 04/09/2023 14:30 ANDERSON ZAMORA [facility] Encounter Notes: All associated encounter notes This section contains the clinical notes associated to the Encounter. Date/Time Encounter Note(s) Provider Source Apr 03, 2023 10:04 AM LETTERS: LOCAL TITLE: FOLLOW UP RESULTS LETTER STANDARD TITLE: LETTERS DATE OF NOTE: APR 03, 2023@10:04 ENTRY DATE: APR 03, 2023@10:04:38 AUTHOR: GLEN DOVE EXP COSIGNER: URGENCY: STATUS: COMPLETED [facility] [address] [place] [address] Mar FRANCES SKELTON [address] [address] [facility] [address] [place]: I wanted to let you know that I heard from [employer], and unfortunately chair lifts are not covered by the [place]. Sorry for the dissapointing news! If you have any further questions or problems, please contact our nursing staff or provider at the following number: [phone]. Sincerely, GLEN DOVE MD PHYSICIAN, [facility] GLEN DOVE [facility]
--- OUTSIDE RECORDS SUMMARY | 2023-09-23 04:45 | XMS_ITS | Encounter Summary ---
Author Name [facility] [place] Organization [facility] [place] Address [address] [place] [address] Care Team Providers Care Auto Body Estimator Name Role Phone PETTY GLEN Primary Care Provider Unavailabl e Insurance Providers: [...] AID (WNR) Aug 08, 2013 MEDICAI D [id number] [phone] DERICK SKELTON PATIENT MEDICARE (WNR) MEDICARE ([place]) PART A Sep 07, 2016 PART A [id number] DERICK SKELTON PATIENT Selected Encounter This section includes the information on record at [place] for the Encounter. Date/Time Encounter Type Encounter Description Reason Provider Source Mar 12, 2023 09:00 AM OFFICE O/P EST MOD [facility] - [facility] ICD-10-CM Z71.6 Tobacco abuse counseling HUSAM ALICEA V Gillian Encounter Template Text not used by [place] Assessments - Encounter Diagnoses This section includes the primary and secondary diagnoses documented for the Encounter. Date/Time Primary/Secondary Diagnosis Diagnosis Name Provider Source Mar 12, 2023 09:40 AM PRIMARY Tobacco abuse counseling HUSAM ALICEA V [facility] Mar 12, 2023 09:40 AM SECONDARY Major depressive disorder, recurrent, moderate HUSAM ALICEA V [facility] Mar 12, 2023 09:40 AM SECONDARY Post-traumatic stress disorder, chronic HUSAM ALICEA V [facility] Plan of Treatment: Future Appointments (+ 6 months) and Future Tests (+/- 45 days) The Plan of Treatment section includes future care activities for the patient from all [place] treatmentfacilities. This section includes future appointments and future orders which are active, pending or scheduled. Future Appointments This section includes appointments that were scheduled to occur 6 months from the date of the Encounter, up to a maximum of 20 appointments. The data comes from all [place] treatment facilities. Appointment Date/Time Appointment Type Appointme nt Facility Name Apr 01, 2023 09:15 AM [facility] Apr 01, 2023 10:15 AM [facility] Apr 08, 2023 09:30 AM [facility] Apr 22, 2023 07:00 AM [facility] May 01, 2023 09:00 AM [facility] Jun 04, 2023 09:00 AM [facility] Jun 04, 2023 09:15 AM [facility] July 16, 2023 09:00 AM AMBULATORY - PSYCHIATRY [facility] August 07, 2023 02:27 PM AMBULATORY - NONE [facility] Aug 25, 2023 11:45 AM AMBULATORY - NONE [facility] Lab Results: +/- 30 days of the encounter This section includes the Chemistry and Hematology Lab Results on record with [place] for the patient. Radiology Reports and Pathology Reports are provided separately, in subsequent sections. Lab Results This section contains the Chemistry/Hematology Results that were resulted 30 days before or 30 daysafter the date of the Encounter. Date/Time Source Result Type Result - Unit Interpretation Reference Range Comment Apr 01, 2023 09:26 AM [facility] B 12 Specimen Type: SERUM No comment entered. Ordering Provider: GLEN DOVE Report Released Date/Time: Aug 20, 2022 09:56 AM Reporting Lab: [facility] [id number] Performing Lab: [facility] [id number] B 12 1040 pg/mL H 213-816 Apr 01, 2023 09:26 AM [facility] FOLATE Specimen Type: SERUM No comment entered. Ordering Provider: GLEN DOVE Report Released Date/Time: Aug 20, 2022 09:56 AM Reporting Lab: [facility] [id number] Performing Lab: [facility] [id number] FOLATE 13.6 ng/mL >7.0 Apr 01, 2023 09:26 AM [facility] VIT D 25-OH,TOTAL Specimen Type: SERUM No comment entered. Ordering Provider: GLEN DOVE Report Released Date/Time: Aug 20, 2022 09:56 AM Reporting Lab: [facility] [id number] Performing Lab: [facility] [address] VIT D 25-OH,TOTAL 36 ng/mL 12-50 Apr 01, 2023 09:26 AM [facility] CBC Specimen Type: BLOOD No comment entered. Ordering Provider: GLEN DOVE Report Released Date/Time: Aug 20, 2022 09:56 AM Reporting Lab: [facility] [id number] Performing Lab: [facility] [id number] WBC 6.26 10*3/uL 4.0-11.0 RBC 3.02 10*6/uL L 4.6-6.2 HGB 8.9 g/dL L 13.5-17.9 HCT 28.2 L 41-54 MCV 93.4 fL 80-100 MCH 29.5 pg 27-33 MCHC 31.6 g/dL L 32.0-37.5 PLT 189 10*3/uL 150-400 MPV 10.3 fL 7.4-10.4 RDW 15.9 H 11.5-14.5 Apr 01, 2023 09:26 AM [facility] COMPREHENSIVE METABOLIC PANEL+MG Specimen Type: PLASMA No comment entered. Ordering Provider: GLEN DOVE Report Released Date/Time: Aug 20, 2022 09:56 AM Reporting Lab: [facility] [id number] Performing Lab: [facility] [id number] CREATININE 1.4 mg/dL H 0.7-1.2 UREA NITROGEN [...] L >60 Apr 01, 2023 09:26 AM [facility] RETICS Specimen Type: BLOOD Comment: Specimen received is PLASMA. Ordering Provider: GLEN DOVE Report Released Date/Time: Apr 01, 2023 10:44 AM Reporting Lab: [facility] [id number] Performing Lab: [facility] [address] ABS RETIC 0.0416 10*6/uL 0.0300-0.1 000 .RETICULOCYTE 1.39 0.6-2.0 IMMATURE RETIC 16.6 H 1.0-14.0 .RETICULOCYTE HE 25.4 pg L 28.2-36.6 Apr 01, 2023 09:26 AM [facility] IRON GROUP Specimen Type: SERUM Comment: Specimen received is PLASMA. Ordering Provider: GLEN DOVE Report Released Date/Time: Apr 01, 2023 10:44 AM Reporting Lab: [facility] [id number] Performing Lab: [facility] [phone] IRON 35 ug/dL L 65-175 TIBC,CALCULATED 381 [...] 2022 09:15 AM VA-TOBACCO USER EVERY DAY [facility] Tobacco Use History This section includes a history of the smoking, or tobacco-related health factors, that were collected on or before the date of the Encounter. The data comes from the [place] facility where the Encounter took place. Date/Time Smoking Status/Tobacco Use Comment F acility Aug 20, 2022 09:15 AM VA-TOBACCO USE ADVICE [facility] Aug 20, 2022 09:15 AM VA-TOBACCO USE PERSONAL LINES ACCOUNT MANAGER NO [facility] Aug 20, 2022 09:15 AM VA-TOBACCO USE MED NO [facility] Aug 20, 2022 09:15 AM VA-TOBACCO USE WI 30 MIN OF WAKE UP [facility] Aug 20, 2022 09:15 AM VA-TOBACCO USER EVERY DAY [facility] Sep 12, 2021 09:15 AM VA-TOBACCO USE 30 YEARS OR MORE [facility] Sep 12, 2021 09:15 AM VA-TOBACCO USE ADVICE [facility] Sep 12, 2021 09:15 AM VA-TOBACCO USE PERSONAL LINES ACCOUNT MANAGER NO [facility] Sep 12, 2021 09:15 AM VA-TOBACCO USE MED NO [facility] Sep 12, 2021 09:15 AM VA-TOBACCO USE WI 30 MIN OF WAKE UP [facility] Sep 12, 2021 09:15 AM VA-TOBACCO USER EVERY DAY [facility] Sep 01, 2020 01:30 PM VA-TOBACCO DOESNT USE WI 30 MIN WAKEUP [facility] Sep 01, 2020 01:30 PM VA-TOBACCO USE 30 YEARS OR MORE [facility] Sep 01, 2020 01:30 PM VA-TOBACCO USE ADVICE [facility] Sep 01, 2020 01:30 PM VA-TOBACCO USE PERSONAL LINES ACCOUNT MANAGER NO [facility] Sep 01, 2020 01:30 PM VA-TOBACCO USE MED NO [facility] Sep 01, 2020 01:30 PM VA-TOBACCO USER EVERY DAY [facility] Sep 27, 2019 09:35 AM VA-TOBACCO USE 30 YEARS OR MORE [facility] Sep 27, 2019 09:35 AM VA-TOBACCO USE ADVICE [facility] Sep 27, 2019 09:35 AM VA-TOBACCO USE PERSONAL LINES ACCOUNT MANAGER NO [facility] Sep 27, 2019 09:35 AM VA-TOBACCO USE MED NO [facility] Sep 27, 2019 09:35 AM VA-TOBACCO USE WI 30 MIN OF WAKE UP [facility] Sep 27, 2019 09:35 AM VA-TOBACCO USER EVERY DAY [facility] Mar 04, 2018 01:45 PM VA-TOBACCO USE 30 YEARS OR MORE [facility] Mar 04, 2018 01:45 PM VA-TOBACCO USE ADVICE [facility] Mar 04, 2018 01:45 PM VA-TOBACCO USE PERSONAL LINES ACCOUNT MANAGER NO [facility] Mar 04, 2018 01:45 PM VA-TOBACCO USE MED NO [facility] Mar 04, 2018 01:45 PM VA-TOBACCO USE WI 30 MIN OF WAKE UP [facility] Mar 04, 2018 01:45 PM VA-TOBACCO USER EVERY DAY [facility] Apr 22, 2017 10:01 AM CURRENT TOBACCO USER [facility] Apr 16, 2016 09:52 AM CURRENT TOBACCO USER [facility] July 26, 2014 09:08 AM CURRENT TOBACCO USER [facility] Dec 31, 2013 10:06 AM CURRENT TOBACCO USER [facility] Sep 05, 2012 09:27 AM CURRENT TOBACCO USER [facility] Nov 25, 2011 09:12 AM CURRENT TOBACCO USER [facility] Feb 08, 2011 10:04 AM CURRENT TOBACCO USER [facility] May 01, 2010 10:24 AM CURRENT TOBACCO USER [facility] Jul 03, 2009 08:42 AM CURRENT TOBACCO USER [facility] Pathology Reports: +/- 30 days of [...] the Encounter. The data comes from all [facility]. Date/Time Pathology Report Provider Source Apr 09, 2023 02:30 PM LR SURGICAL PATHOL OGY REPORT: LOCAL TITLE: LR SURGICAL PATHOLOGY REPORT STANDARD TITLE: PATHOLOGY REPORT DATE OF NOTE: APR 09, 2023@14:30:01 ENTRY DATE: APR 09, 2023@14:30:01 AUTHOR: ANDERSON ZAMORA EXP COSIGNER: URGENCY: STATUS: COMPLETED $APHDR Reporting Lab: [facility] [CLIA# [id number]] [place] [address] - - - - - - - [...] Performing Laboratory: Surgical Pathology Report Performed By: [facility] [CLIA# [id number]] [place] [address] $FTR - - - - - - [...] - - FRANCES SKELTON STANDARD FORM 515 ID:[id number] SEX:M :1950 AGE: 72 LOC:MSP GI COLONOSCOPY A PCP: Glen Dove MD /marli/ ANDERSON ZAMORA MD STAFF PATHOLOGIST Signed: 04/09/2023 14:30 ANDERSON ZAMORA [facility] Encounter Notes: All associated encounter notes This section contains the clinical notes associated to the Encounter. Date/Time Encounter Note(s) Provider Source Mar 12, 2023 04:27 PM PSYCHIATRY E & M NOTE: LOCAL TITLE: PSYCHIATRIC EVALUATION & MANAGEMENT STANDARD TITLE: PSYCHIATRY E & M NOTE DATE OF NOTE: MAR 12, 2023@16:27 ENTRY DATE: MAR 12, 2023@16:27:54 AUTHOR: HUSAM ALICEA V EXP COSIGNER: URGENCY: STATUS: COMPLETED Pt seen for psychiatric follow-up. PSYCHIATRIC DIAGNOSIS: Foot Pain (ICD-9-CM 719.47) Mixed Incontinence (ICD-9-CM 788.33) Heavy tobacco smoker (SCT [id number] (ICD-9-CM 784.0) Numbness (ICD-9-CM 782.0) Depression (SCT 59479635) Alc Dependence, NOS (ICD-9-CM 303.90) HYPERCHOLESTEROLEMIA (ICD-9-CM 272.0) Chronic post-traumatic stress disorder fParesis (Pathologic Function) (ICD-9-CM 344.9) Lumbar Pain (ICD-9-CM 724.2) Cocaine Depend, Remiss (ICD-9-CM 304.23) Cannabis Abuse, Cont (ICD-9-CM 305.21) Depressive episode (SCT 52431060) MDD, Recurrent, unspec (ICD-9-CM 296.30)Abstinent alcoholic (SCT 840371991) Muscle Weakness (ICD-9-CM 728.87) Idiopathic chronic neuropathy (SCT 758891648) Other and unspecified injury to knee, leColonic Polyps (ICD-9-CM 211.3) Screening for other specified conditionsRash and other nonspecific skin eruption (ICD-9-CM 782.1) Malign Neopl Prostate (ICD-9-CM 185.) Neuroma, Digital/Bay's (ICD-9-CM 355.6) Iron deficiency anemia (ICD-9-CM 280.9) Adrenal mass (ICD-9-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 Allergies: BUTORPHANOL (Jul 03, [...] any further questions. 30 minutes /es/ Husam Alicea M.D., Ph.D. STAFF PSYCHIATRIST Signed: 03/12/2023 16:33 HUSAM ALICEA V [facility]
--- OUTSIDE RECORDS SUMMARY | 2023-09-23 04:45 | XMS_ITS | Encounter Summary ---
Author Name [facility] [place] [facility] [place] [facility] [place] Address [address] [place] [id number] Care Team Providers Care Financial Rep Name Role Phone PETTY KAREN Primary Care [...] AID (WNR) Aug 08, 2013 MEDICAI D [id number] [phone] DERICK SKELTON PATIENT MEDICARE (WNR) MEDICARE (M) PART A Sep 07, 2016 PART A [id number] DERICK SKELTON PATIENT Selected Encounter This section includes the information on record at [place] for the Encounter. Date/Time Encounter Type Encounter Description Reason Pro vider Source Mar 05, 2023 09:00 AM Outpatient Encounter MENTAL [facility] Encounter Template Text not used by [place] Plan of Treatment: Future Appointments (+ 6 months) and Future Tests (+/- 45 days) The Plan of Treatment section includes future care activities for the patient from all [place] treatmentfacilities. This section includes future appointments and future orders which are active, pending or scheduled. Future Appointments This section includes appointments that were scheduled to occur 6 months from the date of the Encounter, up to a maximum of 20 appointments. The data comes from all [place] treatment facilities. Appointment Date/Time Appointment Type Appointme nt Facility Name Mar 12, 2023 09:00 AM AMBULATORY [place] [facility] Apr 01, [...] 2023 09:15 AM AMBULATORY - [place]IC[place] [facility] July 16, 2023 09:00 AM AMB[place] [facility] August 07, 2023 02:27 PM AMBULATORY - NONE [place] [facility] Aug 25, 2023 11:45 AM [facility] Lab Results: +/- 30 days of the encounter This section includes the Chemistry and Hematology Lab Results on record with [place] for the patient. Radiology Reports and Pathology Reports are provided separately, in subsequent sections. Lab Results This section contains the Chemistry/Hematology Results that were resulted 30 days before or 30 daysafter the date of the Encounter. Date/Time Source Result Type Result - Unit Interpretation Reference Range Comment Apr 01, 2023 09:26 AM [facility] VIT D 25-OH,TOTAL Specimen Type: SERUM No comment entered. Ordering Provider: KAREN DOVE Report Released Date/Time: Aug 20, 2022 09:56 AM Reporting Lab: [facility] [id number] Performing Lab: [facility] [id number] VIT D 25-OH,TOTAL 36 ng/mL 12-50 Apr 01, 2023 09:26 AM [facility] FOLATE Specimen Type: SERUM No comment entered. Ordering Provider: KAREN DOVE Report Released Date/Time: Aug 20, 2022 09:56 AM Reporting Lab: [facility] [id number] Performing Lab: [facility] [address] FOLATE 13.6 ng/mL >7.0 Apr 01, 2023 09:26 AM [facility] B 12 Specimen Type: SERUM No comment entered. Ordering Provider: KAREN DOEV Report Released Date/Time: Aug 20, 2022 09:56 AM Reporting Lab: [facility] [id number] Performing Lab: [facility] [address] B 12 1040 pg/mL H 213-816 Apr 01, 2023 09:26 AM [facility] CBC Specimen Type: BLOOD No comment entered. Ordering Provider: KAREN DOVE Report Released Date/Time: Aug 20, 2022 09:56 AM Reporting Lab: [facility] [id number] Performing Lab: [facility] [address] WBC 6.26 10*3/uL 4.0-11.0 RBC 3.02 10*6/uL L 4.6-6.2 HGB 8.9 g/dL L 13.5-17.9 HCT 28.2 L 41-54 MCV 93.4 fL 80-100 MCH 29.5 pg 27-33 MCHC 31.6 g/dL L 32.0-37.5 PLT 189 10*3/uL 150-400 MPV 10.3 fL 7.4-10.4 RDW 15.9 H 11.5-14.5 Apr 01, 2023 09:26 AM [facility] COMPREHENSIVE METABOLIC PANEL+MG Specimen Type: PLASMA No comment entered. Ordering Provider: KAREN DOVE Report Released Date/Time: Aug 20, 2022 09:56 AM Reporting Lab: [facility] [id number] Performing Lab: [facility] [address] CREATININE 1.4 mg/dL H 0.7-1.2 UREA NITROGEN [...] L >60 Apr 01, 2023 09:26 AM [facility] RETICS Specimen Type: BLOOD Comment: Specimen received is PLASMA. Ordering Provider: KAREN DOVE Report Released Date/Time: Apr 01, 2023 10:44 AM Reporting Lab: [facility] [id number] Performing Lab: [facility] [address] ABS RETIC 0.0416 10*6/uL 0.0300-0.1 000 .RETICULOCYTE 1.39 0.6-2.0 IMMATURE RETIC 16.6 H 1.0-14.0 .RETICULOCYTE HE 25.4 pg L 28.2-36.6 Apr 01, 2023 09:26 AM [facility] IRON GROUP Specimen Type: SERUM Comment: Specimen received is PLASMA. Ordering Provider: KAREN DOVE Report Released Date/Time: Apr 01, 2023 10:44 AM Reporting Lab: [facility] [phone] Performing Lab: [facility] [address] IRON 35 ug/dL L 65-175 TIBC,CALCULATED 381 ug/dL 250-425 FERRITIN 16.8 ng/mL L 21.8-274.7 IRON SATURATION 9 L 20-50 TRANSFERRIN 305 mg/dL 163-382 Social History: Smoking Status (Most current) and Tobacco Use (All prior to encounter date) This section includes the most current, and the historical, smoking and tobacco- related health factors from the [facility] where the Encounter took place. Current Smoking Status This section includes the most current smoking, or tobacco-related health factor, from the [place] facility where the Encounter took place. Date/Time Current Smoking Status Comment Silvia ity Aug 20, 2022 09:15 AM VA-TOBACCO USER EVERY DAY [facility] Tobacco Use History This section includes a history of the smoking, or tobacco-related health factors, that were collected on or before the date of the Encounter. The data comes from the [place] facility where the Encounter took place. Date/Time Smoking Status/Tobacco Use Comment F acminh Aug 20, 2022 09:15 AM VA-TOBACCO USE ADVICE [facility] Aug 20, 2022 09:15 AM VA-TOBACCO USE JUNK REMOVAL SPECIALIST NO [facility] Aug 20, [...] Sep 12, 2021 09:15 AM VA-TOBACCO USE JUNK REMOVAL SPECIALIST NO [facility] Sep 12, [...] Sep 01, 2020 01:30 PM VA-TOBACCO USE JUNK REMOVAL SPECIALIST NO [facility] Sep 01, [...] Sep 27, 2019 09:35 AM VA-TOBACCO USE JUNK REMOVAL SPECIALIST NO [facility] Sep 27, [...] Mar 04, 2018 01:45 PM VA-TOBACCO USE JUNK REMOVAL SPECIALIST NO [facility] Mar 04, [...] ENTRY DATE: MAR 05, 2023@10:24:17 AUTHOR: HUSAM MAYNARD V EXP COSIGNER: URGENCY: STATUS: COMPLETED Patient did not appear for scheduled appointment. Risk Factors: ptsd, isolative Protective Factors: own appartment; follow intermittently; no recent evidence of worsening Clinician Judgment of Risk: low Plan Based on Clinician Judgment of Risk: per protocol; left AM message to rechhedule. /marli/ Husam Maynard M.D., Ph.D. STAFF PSYCHIATRIST Signed: 03/05/2023 10:30 HUSAM MAYNARD V [facility]
--- OUTSIDE RECORDS SUMMARY | 2023-09-23 04:45 | XMS_ITS | Encounter Summary ---
Author Name [facility] Organization [facility] Address [address] [place] [id number] Care Team Providers Care Bus Starter Name Role Phone PETTYAMRCIALO Primary Care Provider Unavailabl e Insurance Providers: [...] AID (WNR) Aug 08, 2013 MEDICAI D [id number] [phone] DERICK SKELTON PATIENT MEDICARE (WNR) MEDICARE (M) PART A Sep 07, 2016 PART A [id number] DERICK SKELTON PATIENT Selected Encounter This section includes the information on record at [place] for the Encounter. Date/Time Encounter Type Encounter Description Reason Provider Source Dec 05, 2022 10:15 AM Outpatient Encounter DENTAL JANKI TAVAREZ Gillian Encounter Template Text not used by [place] Plan of Treatment: Future Appointments (+ 6 months) and Future Tests (+/- 45 days) The Plan of Treatment section includes future care activities for the patient from all [place] treatmentfacilities. This section includes future appointments and future orders which are active, pending or scheduled. Future Appointments This section includes appointments that were scheduled to occur 6 months from the date of the Encounter, up to a maximum of 20 appointments. The data comes from all [place] treatment facilities. Appointment Date/Time Appointment Type Appointme nt Facility Name Dec 30, 2022 10:15 AM AM[place] [facility] Mar 05, 2023 09:00 AM [place] [facility] Mar 12, 2023 09:00 AM [place] [facility] Apr 01, 2023 09:15 AM [place] [facility] Apr 01, 2023 10:15 AM [place] [facility] Apr 08, 2023 09:30 AM [place] [facility] Apr 22, 2023 07:00 AM [place] [facility] May 01, 2023 09:00 AM [place] [facility] Jun 04, 2023 09:00 [facility], [facility] 09[facility]15 [facility] Social History: Smoking Status (Most current) and Tobacco Use (All prior to encounter date) This section includes the most current, and the historical, smoking and tobacco- related health factors from the [place] facility where the Encounter took place. Current Smoking Status This section includes the most current smoking, or tobacco-related health factor, from the [place] facility where the Encounter took place. Date/Time Current Smoking Status Comment Facil ity Aug 20, 2022 09:15 AM [place] [address] [facility] Tobacco Use History This section includes a history of the smoking, or tobacco-related health factors, that were collected on or before the date of the Encounter. The data comes from the [place] facility where the Encounter took place. Date/Time Smoking Status/Tobacco Use Comment F acility Aug 20, 2022 09:15 AM VA-TOBACCO USE ADVICE [facility] Aug 20, 2022 09:15 AM VA-TOBACCO USE [employer] [facility] Aug 20, 2022 09:15 AM VA-TOBACCO USE MED NO [facility] Aug 20, 2022 09:15 AM [place]-TOBACCO [place] [address] [facility] Aug 20, 2022 09:15 AM VA-TOBACCO USER EVERY DAY [facility] Sep 12, 2021 09:15 AM VA-TOBACCO USE [address] [facility] Sep 12, 2021 09:15 AM VA-TOBACCO USE ADVICE [facility] Sep 12, 2021 09:15 AM VA-TOBACCO USE [employer] [facility] Sep 12, 2021 09:15 AM VA-TOBACCO USE MED NO [facility] Sep 12, 2021 09:15 AM VA-TOBACCO [place] [address] [facility] Sep 12, 2021 09:15 AM VA-TOBACCO USER EVERY DAY [facility] Sep 01, 2020 01:30 PM VA-TOBACCO DOES[place] USE [place] [address] [facility] Sep 01, 2020 01:30 PM VA-TOBACCO USE [address] [facility] Sep 01, 2020 01:30 PM VA-TOBACCO USE ADVICE [facility] Sep 01, 2020 01:30 PM VA-TOBACCO USE [employer] [facility] Sep 01, 2020 01:30 PM VA-TOBACCO USE MED NO [facility] Sep 01, 2020 01:30 PM VA-TOBACCO USER EVERY DAY [facility] Sep 27, 2019 09:35 AM VA-TOBACCO USE [address] [facility] Sep 27, 2019 09:35 AM VA-TOBACCO USE ADVICE [facility] Sep 27, 2019 09:35 AM VA-TOBACCO USE [employer] [facility] Sep 27, 2019 09:35 AM VA-TOBACCO USE MED NO [facility] Sep 27, 2019 09:35 AM VA-TOBACCO [place] [address] [facility] Sep 27, 2019 09:35 AM VA-TOBACCO USER EVERY DAY [facility] Mar 04, 2018 01:45 PM VA-TOBACCO USE [address] [facility] Mar 04, 2018 01:45 PM VA-TOBACCO USE ADVICE [facility] Mar 04, 2018 01:45 PM VA-TOBACCO USE [employer] [facility] Mar 04, 2018 01:45 PM VA-TOBACCO USE MED NO [facility] Mar 04, 2018 01:45 PM VA-TOBACCO USE [place] [address] [facility] Mar 04, 2018 01:45 PM VA-TOBACCO USER EVERY DAY [facility] Apr 22, 2017 10:01 AM CURRENT TOBACCO USER [facility] Apr 16, 2016 09:52 AM CURRENT TOBACCO USER [facility] July 26, 2014 09:08 AM CURRENT TOBACCO USER [facility] Dec 31, 2013 10:06 AM CURRENT TOBACCO USER [facility] Sep 05, 2012 09:27 AM CURRENT TOBACCO USER [facility] Nov 25, 2011 09:12 AM CURRENT TOBACCO USER [facility] Feb 08, 2011 10:04 AM CURRENT TOBACCO USER [facility] May 01, 2010 10:24 AM CURRENT TOBACCO [facility] Jul 03, 2009 08:42 AM CURRENT TOBACCO USER [facility] Encounter Notes: All associated encounter notes [...] letter queued to be sent Contact: Called at: /marli/ DANITZA ALBERT M[employer] Signed: 12/05/2022 17:44 12/05/2022 ADDENDUM STATUS: COMPLETED I called the pt and rescheduled hi new pt appt to 12/30/2022 @ 10:15 /marli/ DANITZA ALBERT MSA [employer] Signed: 12/05/2022 17:[address] [facility]
--- OUTSIDE RECORDS SUMMARY | 2023-09-23 04:45 | XMS_ITS | Encounter Summary ---
Author Name [facility] [place] [facility] [place] Address [address] [place] [id number] Care Team Providers Care Land Developer Name Role Phone KAREN DOVE Primary Care [...] AID (WNR) Aug 08, 2013 MEDICAI D [id number] [phone] DERICK SKELTON PATIENT MEDICARE (WNR) MEDICARE (M) PART A Sep 07, 2016 PART A [id number] [phone] DERICK SKELTON PATIENT Selected Encounter This section includes the information on record at [place] for the Encounter. Date/Time Encounter Type Encounter Description Reason Provider Source Apr 01, 2023 10:15 AM OFFICE O/P EST HI 40 MIN PRIMARY CARE/MEDICINE ICD-10-CM Z71.6 Tobacco abuse counseling KAREN DOVE IHGillian Encounter Template Text not used by [place] Assessments - Encounter Diagnoses This section includes the primary and secondary diagnoses documented for the Encounter. Date/Time Primary/Secondary Diagnosis Diagnosis Name Provider Source Apr 01, 2023 12:34 PM PRIMARY Tobacco abuse counseling KAREN DOVE [facility] Apr 01, 2023 12:34 PM SECONDARY Alcohol abuse, uncomplicated KAREN DOVE [facility] Apr 01, 2023 12:34 PM SECONDARY Chronic kidney disease, unspecified KAREN DOVE [facility] Apr 01, 2023 12:34 PM SECONDARY Deficiency of other specified B group vitamins KAREN DOVE [facility] Apr 01, 2023 12:34 PM SECONDARY Essential (primary) hypertension KAREN DOVE [facility] Apr 01, 2023 12:34 PM SECONDARY Hypokalemia KAREN DOVE [facility] Apr 01, 2023 12:34 PM SECONDARY Nutritional anemia, unspecified KAREN DOVE [facility] Apr 01, 2023 12:34 PM SECONDARY Personal history of colonic polyps PETTYKAREN [facility] Apr 01, 2023 12:34 PM SECONDARY Vitamin D deficiency, unspecified [facility] Plan of Treatment: Future Appointments (+ 6 months) and Future Tests (+/- 45 days) The Plan of Treatment section includes future care activities for the patient from all [facility]. This section includes future appointments and future orders which are active, pending or scheduled. Future Appointments This section includes appointments that were scheduled to occur 6 months from the date of the Encounter, up to a maximum of 20 appointments. The data comes from all [facility]. Appointment Date/Time Appointment Type Appointme nt Facility Name Apr 08, 2023 09:30 AM [place] [facility] Apr 22, 2023 07:00 AM [place] [facility] May 01, 2023 09:00 [facility] Jun 04, 2023 09:00 AM [place] [place] [facility] Jun 04, 2023 09:15 AM [place]IC[place] [facility] July 16, 2023 09:00 AM AMB[place] [facility] August 07, 2023 02:27 PM AMBUL[place]ORY - NONE [place] [facility] Aug 25, 2023 11:45 AM AM[place]ORY - NONE [place] [facility] Sep 23, 2023 08:15 AM [place]ORY - NONE [place] [facility] Sep 23, 2023 09:15 [facility] Active, Pending, and Scheduled Orders This section includes a listing of several types of active, pending, and scheduled orders, including clinic medications orders, diagnostic test orders, procedure orders and consult orders; where the start date of the order is 45 days before the date of the Encounter or 45 days after the date of theEncounter. The data comes from all [place] treatment facilities. Test Date/Time Test Type Test Details Facility Name Apr 29, 2023 12:00 AM Laboratory - Chemi stry Order BASIC METABOLIC PANEL+MG PLASMA SP ONCE [facility] Apr 29, 2023 12:00 AM Laboratory - Chemi stry Order CBC BLOOD SP [facility] Lab Results: +/- 30 days of the encounter This section includes the Chemistry and Hematology Lab Results on record with [place] for the patient. Radiology Reports and Pathology Reports are provided separately, in subsequent sections. Lab Results This section contains the Chemistry/Hematology Results that were resulted 30 days before or 30 daysafter the date of the Encounter. Date/Time Source Result Type Result - Unit Interpretation Reference Range Comment Apr 01, 2023 09:26 AM [facility] B 12 Specimen Type: SERUM No comment entered. Ordering Provider: KAREN DOVE Report Released Date/Time: Aug 20, 2022 09:56 AM Reporting Lab: [facility] [id number] Performing Lab: [facility] [id number] B 12 1040 pg/mL H 213-816 Apr 01, 2023 09:26 AM [facility] FOLATE Specimen Type: SERUM No comment entered. Ordering Provider: KAREN DOVE Report Released Date/Time: Aug 20, 2022 09:56 AM Reporting Lab: [facility] [id number] Performing Lab: [facility] [id number] FOLATE 13.6 ng/mL >7.0 Apr 01, 2023 09:26 AM [facility] VIT D 25-OH,TOTAL Specimen Type: SERUM No comment entered. Ordering Provider: KAREN DOVE Report Released Date/Time: Aug 20, 2022 09:56 AM Reporting Lab: [facility] [id number] Performing Lab: [facility] [address] VIT D 25-OH,TOTAL 36 ng/mL 12-50 Apr 01, 2023 09:26 AM [facility] CBC Specimen Type: BLOOD No comment entered. Ordering Provider: KAREN DOVE Report Released Date/Time: Aug 20, 2022 09:56 AM Reporting Lab: [facility] [id number] Performing Lab: [facility] [address] WBC 6.26 10*3/uL 4.0-11.0 RBC 3.02 10*6/uL L 4.6-6.2 HGB 8.9 g/dL L 13.5-17.9 HCT 28.2 L 41-54 MCV 93.4 fL 80-100 MCH 29.5 pg 27-33 MCHC 31.6 g/dL L 32.0-37.5 PLT 189 10*3/uL 150-400 MPV 10.3 fL 7.4-10.4 RDW 15.9 H 11.5-14.5 Apr 01, 2023 09:26 AM [facility] COMPREHENSIVE METABOLIC PANEL+MG Specimen Type: PLASMA No comment entered. Ordering Provider: KAREN DOVE Report Released Date/Time: Aug 20, 2022 09:56 AM Reporting Lab: [facility] [address] Performing Lab: [facility] [address] CREATININE 1.4 mg/dL H 0.7-1.2 UREA NITROGEN [...] L >60 Apr 01, 2023 09:26 AM [facility] RETICS Specimen Type: BLOOD Comment: Specimen received is PLASMA. Ordering Provider: KAREN DOVE Report Released Date/Time: Apr 01, 2023 10:44 AM Reporting Lab: [facility] [id number] Performing Lab: [facility] [address] ABS RETIC 0.0416 10*6/uL 0.0300-0.1 000 .RETICULOCYTE 1.39 0.6-2.0 IMMATURE RETIC 16.6 H 1.0-14.0 .RETICULOCYTE HE 25.4 pg L 28.2-36.6 Apr 01, 2023 09:26 AM [facility] IRON GROUP Specimen Type: SERUM Comment: Specimen received is PLASMA. Ordering Provider: KAREN DOVE Report Released Date/Time: Apr 01, 2023 10:44 AM Reporting Lab: [facility] [address] Performing Lab: [facility] [phone] IRON 35 ug/dL L 65-175 TIBC,CALCULATED 381 ug/dL 250-425 FERRITIN 16.8 ng/mL L 21.8-274.7 IRON SATURATION 9 L 20-50 TRANSFERRIN 305 mg/dL 163-382 Vital Signs: All taken on the encounter date This section contains inpatient and outpatient Vital Signs collected on the date of the Encounter. Date/Time Temperature Pulse Blood Pressure Respiratory Rate SP02 Pain Height Weight Body Mass Index Source Apr 01, 2023 10:46 AM 157/69 mm[Hg] [facility] Apr 01, 2023 10:27 AM 98.3 F 54 /min 161/78 mm[Hg] 18 /min 100 % 0 71 in 142 lb 20 [facility] Social History: Smoking Status [...] place. Date/Time Smoking Status/Tobacco Use Comment F franko Aug 20, 2022 09:15 AM VA-TOBACCO USE ADVICE [facility] Aug 20, 2022 09:15 AM VA-TOBACCO USE TOLL COLLECTOR SUPERVISOR NO [facility] Aug 20, 2022 [...] Sep 12, 2021 09:15 AM VA-TOBACCO USE TOLL COLLECTOR SUPERVISOR NO [facility] Sep 12, 2021 [...] Sep 01, 2020 01:30 PM VA-TOBACCO USE TOLL COLLECTOR SUPERVISOR NO [facility] Sep 01, 2020 01:30 PM VA-TOBACCO USE MED NO [facility] Sep 01, 2020 01:30 PM VA-TOBACCO USER EVERY DAY [facility] Sep 27, 2019 09:35 AM VA-TOBACCO USE 30 YEARS OR MORE [facility] Sep 27, 2019 09:35 AM VA-TOBACCO USE ADVICE [facility] Sep 27, 2019 09:35 AM VA-TOBACCO USE TOLL COLLECTOR SUPERVISOR NO [facility] Sep 27, 2019 [...] Mar 04, 2018 01:45 PM VA-TOBACCO USE TOLL COLLECTOR SUPERVISOR NO [facility] Mar 04, 2018 [...] AM CURRENT TOBACCO USER [facility] Pathology Reports: +/- 30 days [...] COSIGNER: URGENCY: STATUS: COMPLETED $APHDR Reporting Lab: [facility] [CLIA# [id number]] [place] [address] - - - - - - - [...] - - - PATHOLOGY REPORT Accession No. [id number] - - - - - [...] 0.3 cm in greatest dimension. [facility]IC DESCRIPTION: Microscopic examination performed. BB DIAGNOSIS: 1. Stomach, antrum body, biopsy-- - Reactive gastropathy - H. pylori stain: Negative 2. 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 [facility] RN will Informed agency that request has been denied at this time. Per [place] guidance, requested service is considered a general health assessment (GHA), which is not a [place] covered service. Patients must have a skilled clinical need in order to receive SNV. [facility] RN contacted agency Nurse Tiffany and educated her on the the use of PRN visits that are covered under current authorization. GHA & education on pressure sore prevention. Nurse Tiffany verbalized understanding and expressed that the has issues with transportation, his ability to follow up with his medical care needs and he is a fall risk. 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 #EMG-proven bilateral lower extremity neuropathy W/u [...] nightly, trazodone 150 mg nightly, follows w/ #Anxiety and depression: atenolol 25 mg daily, duloxetine 90 mg daily [facility] -CRC: last colonoscopy 06/21/2013 w/ repeat due June 2023 for screening purposes, will obtain FIT test if GI does not pursue colonoscopy -tobacco: less then 1 ppd, >40 years (started around 26), repeat lung cancer screening due 08/2023 -PSA: as above RTC: 6 months Karen Petty, MD General Internal Medicine [facility] A total of 42 minutes was spent on this visit reviewing previous notes, counseling the patient, ordering or interpreting tests, adjusting meds, and documenting the findings in the note. CC: Annual HPI Patient presents for his annual. He suspects been doing altogether fairly well recently. His main concerns today are to get some orders from the [place] for a lift chair as well as [...] the followin. Heavy tobacco smoker (SNOMED CT 800076897876896) 2. Depression (SNOMED CT 38668665) 3. Chronic post-traumatic stress disorder following combat (SNOMED CT 4. Idiopathic chronic neuropathy (SNOMED CT 417976322) - EMG-proven 5. Lumbar spondylosis 6. Prostate Cancer (SCT 326602895) - status post radical retroprostatectomy 2012 complicated by incontinence 7. 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 Osteopenia - per 10/2022 DEXA 9. Recurrent falls - Likely driven by of his severe lower extremity neuropathy 10. Alcohol Abuse (SCT 30112387) 11. Gastritis - suspected NSAID-induced 2014 +/- EtOH: remains on PPI 12. COPD - Chronic Obstructive Pulmonary Disease ([facility] [id number]) 13. History of Polyp of Colon ([facility] [id number]) - last colonoscopy 06/21/2013 notable for hyperplastic polyp w/ repeat due June 2023 for screening purposes 14. 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 Insomnia ([facility] [id number]) 16. Vitamin D deficiency 17. Vitamin B12 [...] Remote Allergy/ADR Data available for this patient [facility] BEE [facility] BUTORPHANOL Active and Recently Outpatient Medications (including Supplies): Issue Date Status Last Fill Active Outpatient Medications Refills Expiration 1) ATENOLOL 25MG TAB Qty: 90 for 90 days ACTIVE Issu:11-20-22 Sig: TAKE ONE TABLET BY MOUTH EVERY Refills: 0 Last:02-17-23 DAY FOR ANXIETY FOR ANXIETY Expr:11-21-23 2) BRIEF,TRANQUILITY LESLIE OVERNITE SM#[id number] ACTIVE Issu:01-07-23 Qty: 80 for 30 days [...] L IRON SATURATION: 9 L TRANSFERRIN: 305 /kelly DOVE MD PHYSICIAN, [facility] Signed: 04/01/2023 12:34 06/19/2023 ADDENDUM STATUS: COMPLETED Millicent, received report from patient's [facility] provider he may be developing a pressure sore on his left buttocks. They are requesting authorization for weekly visits to monitor pressure area. Can you please help athorize? Thanks! fax [phone] phone [phone] /kelly DOVE MD PHYSICIAN, [facility] Signed: 06/19/2023 08:58 Receipt Acknowledged By: 06/19/2023 10:28 /es/ JOSE BULLOCK RN REGISTERED NURSE 06/19/2023 ADDENDUM STATUS: COMPLETED Called and spoke with Patricia Brooks home care nurse for Feli [phone]. She reports that she is visiting patient today. She states that she had faxed authorization to the home care department requesting weekly skilled nurse visits to monitor a developing pressure area on Vet's buttock's weekly but it was denied. Home Care: Tube Dispatcher will co sign home care department to make this request for weekly skilled nurse visits to monitor a developing pressure area on Vet's buttocks. Tube Dispatcher offered to order mepilex bordered foam. She wanted to hold on this until seeing patient today. Provided a direct phone number to call back. Home care-if request is authorized, agency is requesting faxed authorization orders. Dr. Dove: Patricia asked marketing writer if Feli ever had his labs drawn [...] Patricia states that he lives closest to [facility]. She would be able to assist Vet with arranging a ride to a lab appointment if approved. Tube Dispatcher also offered to move up Feli's appt with Dr. Dove which is due in August. This will be considered but Patricia still feels obtaining current lab work now would be helpful. Prior hgb 8.18 Mar 2023. /es/ JOSE BULLOCK RN REGISTERED NURSE Signed: 06/19/2023 10:26 Receipt Acknowledged By: 06/19/2023 16:24 /es/ KAREN DOVE MD PHYSICIAN, [facility] 06/20/2023 12:22 /es/ NIGEL BLANDON HOUSEHOLD APPLIANCE REPAIRER CARE SENIOR SOFTWARE SYSTEMS ENGINEER 06/20/2023 ADDENDUM STATUS: COMPLETED CITC entered but declined because the patient doesn't meet drivetime critera. I've ordered CBC and iron count via [facility]. /marli/ KAREN DOVE MD PHYSICIAN, [facility] Signed: 06/20/2023 08:36 KAYLA XIE [facility] Jun 19, 2023 10:17 AM ADDENDUM: LOCAL TITLE: Addendum STANDARD TITLE: ADDENDUM DATE OF NOTE: JUN 19, 2023@10:17:38 ENTRY DATE: JUN 19, 2023@10:17:39 AUTHOR: JOSE BULLOCK COSIGNER: URGENCY: STATUS: COMPLETED Called and spoke with Patricia Brooks home care nurse for Vet [phone]. She reports that she is visiting patient today. She states that she had faxed authorization to the home care department requesting weekly skilled nurse visits to monitor a developing pressure area on Vet's buttock's weekly but it was denied. Home Care: Tube Dispatcher will co sign home care department to make this request for weekly skilled nurse visits to monitor a developing pressure area on Vet's buttocks. Tube Dispatcher offered to order mepilex bordered foam. She wanted to hold on this until seeing patient today. Provided a direct phone number to call back. Home care-if request is authorized, agency is requesting faxed authorization orders. Dr. Dove: Patricia asked marketing writer if Aniat ever had his labs drawn [...] Patricia states that he lives closest to [facility]. She would be able to assist Vet with arranging a ride to a lab appointment if approved. Tube Dispatcher also offered to move up Vet's appt with Dr. Dove which is due in August. This will be considered but Patricia still feels obtaining current lab work now would be helpful. Prior hgb 8.18 Mar 2023. 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 #EMG-proven bilateral lower extremity neuropathy W/u [...] months Karen Dove MD General Internal Medicine [facility] A total of 42 minutes was spent [...] the followin. Heavy tobacco smoker (SNOMED CT [id number]) 2. Depression (SNOMED CT 68124586) 3. Chronic post-traumatic stress disorder following combat (SNOMED CT 4. Idiopathic chronic neuropathy (SNOMED CT 374048242) - EMG-proven 5. Lumbar spondylosis 6. Prostate Cancer (SCT 726738957) - status post radical retroprostatectomy 2012 complicated by incontinence 7. 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 Osteopenia - per 10/2022 DEXA 9. Recurrent falls - Likely driven by of his severe lower extremity neuropathy 10. Alcohol Abuse (SCT 62119763) 11. Gastritis - suspected NSAID-induced 2013 +/- EtOH: remains on PPI 12. COPD - Chronic Obstructive Pulmonary Disease ([facility] 19352261) 13. History of Polyp of Colon (SCT 359470718) - last colonoscopy 06/21/2013 notable for hyperplastic polyp w/ repeat due June 2023 for screening purposes 14. 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 Insomnia (SCT 956509811) 16. Vitamin D deficiency 17. Vitamin B12 [...] Remote Allergy/ADR Data available for this patient [facility] BEE [facility] BUTORPHANOL Active and Recently Outpatient Medications (including [...] TRANSFERRIN: 305 /marli/ KAREN DOVE MD PHYSICIAN, [facility] Signed: 04/01/2023 12:34 06/19/2023 ADDENDUM STATUS: COMPLETED Millicent, received report from patient's [facility] provider he may be developing a pressure sore on his left buttocks. They are requesting authorization for weekly visits to monitor pressure area. Can you please help athorize? Thanks! fax [phone] phone [phone] /kelly DOVE MD PHYSICIAN, [facility] Signed: 06/19/2023 08:58 Receipt Acknowledged By: 06/19/2023 10:28 /marli/ JOSE BULLOCK, RN REGISTERED NURSE 06/20/2023 ADDENDUM STATUS: COMPLETED CITC entered but declined because the patient doesn't meet drivetime critera. I've ordered CBC and iron count via [facility]. /kelly DOVE MD PHYSICIAN, [facility] Signed: 06/20/2023 08:36 JOSE BULLOCK [facility] Jun 19, 2023 08:57 AM ADDENDUM: LOCAL TITLE: Addendum STANDARD TITLE: ADDENDUM DATE OF NOTE: JUN 19, 2023@08:57:39 ENTRY DATE: JUN 19, 2023@08:57:39 AUTHOR: KAREN DOVE EXP COSIGNER: URGENCY: STATUS: COMPLETED Millicent, received report from patient's [facility] health provider he may be developing a pressure sore on his left buttocks. They are requesting authorization for weekly visits to monitor pressure area. Can you please help athorize? Thanks! 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 #EMG-proven bilateral lower extremity neuropathy W/u [...] months Karen Dove MD General Internal Medicine [facility] A total of 42 minutes was spent [...] the followin. Heavy tobacco smoker (SNOMED CT 742980580299704) 2. Depression (SNOMED CT 83215500) 3. Chronic post-traumatic stress disorder following combat (SNOMED CT 4. Idiopathic chronic neuropathy (SNOMED CT 387565287) - EMG-proven 5. Lumbar spondylosis 6. Prostate Cancer ([facility] 718264501) - status post radical retroprostatectomy 2012 complicated by incontinence 7. 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 Osteopenia - per 10/2022 DEXA 9. Recurrent falls - Likely driven by of his severe lower extremity neuropathy 10. Alcohol Abuse ([facility] 76513237) 11. Gastritis - suspected NSAID-induced 2013 +/- EtOH: remains on PPI 12. COPD - Chronic Obstructive Pulmonary Disease (SCT 49251178) 13. History of Polyp of Colon ([facility] 195294093) - last colonoscopy 06/21/2013 notable for hyperplastic polyp w/ repeat due June 2023 for screening purposes 14. 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 Insomnia ([facility] 356996609) 16. Vitamin D deficiency 17. Vitamin B12 [...] Remote Allergy/ADR Data available for this patient [facility] BEE [facility] BUTORPHANOL Active and Recently Outpatient Medications (including Supplies): Issue Date Status Last Fill Active Outpatient Medications Refills Expiration 1) ATENOLOL 25MG TAB Qty: 90 for 90 days ACTIVE Issu:11-20-22 Sig: TAKE ONE TABLET BY MOUTH EVERY Refills: 0 Last:02-17-23 DAY FOR ANXIETY FOR ANXIETY Expr:11-21-23 2) BRIEF,TRANQUILITY LESLIE OVERNITE SM#[id number] ACTIVE Issu:01-07-23 Qty: 80 for 30 days [...] TRANSFERRIN: 305 /es/ KAREN DOVE MD PHYSICIAN, [facility] Signed: 04/01/2023 12:34 06/19/2023 ADDENDUM STATUS: COMPLETED Called and spoke with Patricia Brooks home care nurse for Vet [phone]. She reports that she is visiting patient today. She states that she had faxed authorization to the home care department requesting weekly skilled nurse visits to monitor a developing pressure area on Vet's buttock's weekly but it was denied. Home Care: Tube Dispatcher will co sign home care department to make this request for weekly skilled nurse visits to monitor a developing pressure area on Vet's buttocks. Tube Dispatcher offered to order mepilex bordered foam. She wanted to hold on this until seeing patient today. Provided a direct phone number to call back. Home care-if request is authorized, agency is requesting faxed authorization orders. Dr. Dove: Patricia asked marketing writer if Vet ever had his labs drawn [...] Patricia states that he lives closest to [facility]. She would be able to assist Vet with arranging a ride to a lab appointment if approved. Tube Dispatcher also offered to move up [place]'s appt with Dr. Dove which is due in August. This will be considered but Patricia still feels obtaining current lab work now would be helpful. Prior hgb 8.18 Mar 2023. /es/ JOSE BULLOCK RN REGISTERED NURSE Signed: 06/19/2023 10:26 Receipt Acknowledged By: * AWAITING SIGNATURE * KAREN DOVE * AWAITING SIGNATURE * KAYLA XIE LEO B [facility] Apr 01, 2023 11:16 AM ADMINISTRATIVE NOTE: [...] provided to the patient is available in Siftit. SCANNED DOCUMENT SIGNATURE NOT REQUIRED Electronically Filed: 04/01/2023 by: KAREN DOVE MD PHYSICIAN, [facility] KAREN DOVE [facility] Apr 01, 2023 10:30 AM INTERNAL MEDICINE [...] 10:27) BMI: 19.8 O2 Sat: 100% (04/01/2023 10:) Pain: 0 (04/01/2023 10:) PAIN SCREEN: Patient is not having significant pain that they wish to discuss with their provider today. MEDICATION Over the Counter/Herbal Medications: The patient denies taking any outside medications or herbals. 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 #EMG-proven bilateral lower extremity neuropathy W/u [...] months Karen Dove MD General Internal Medicine [facility] A total of 42 minutes was spent on this visit reviewing previous notes, counseling the patient, ordering or interpreting tests, adjusting meds, and documenting the findings in the note. CC: Annual HPI Patient presents for his annual. He suspects been doing altogether fairly well recently. His main concerns today are to get some orders from the [place] for a lift chair as well as [...] the followin. Heavy tobacco smoker (SNOMED CT 971541470033241) 2. Depression (SNOMED CT 71996327) 3. Chronic post-traumatic stress disorder following combat (SNOMED CT 4. Idiopathic chronic neuropathy (SNOMED CT 484913657) - EMG-proven 5. Lumbar spondylosis 6. Prostate Cancer (SCT 936896108) - status post radical retroprostatectomy 2012 complicated by incontinence 7. 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 Osteopenia - per 10/2022 DEXA 9. Recurrent falls - Likely driven by of his severe lower extremity neuropathy 10. Alcohol Abuse ([facility] [id number]) 11. Gastritis - suspected NSAID-induced 2013 +/- EtOH: remains on PPI 12. COPD - Chronic Obstructive Pulmonary Disease ([facility] [id number]) 13. History of Polyp of Colon ([facility] [id number]) - last colonoscopy 06/21/2013 notable for hyperplastic polyp w/ repeat due June 2023 for screening purposes 14. 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 Insomnia ([facility] [id number]) 16. Vitamin D deficiency 17. Vitamin B12 [...] Remote Allergy/ADR Data available for this patient [facility] BEE [facility] BUTORPHANOL Active and Recently Outpatient Medications (including [...] TRANSFERRIN: 305 /marli/ KAREN DOVE MD PHYSICIAN, [facility] Signed: 04/01/2023 12:34 06/19/2023 ADDENDUM STATUS: COMPLETED Millicent, received report from patient's [facility] provider he may be developing a pressure sore on his left buttocks. They are requesting authorization for weekly visits to monitor pressure area. Can you please help athorize? Thanks! fax [phone] phone [phone] /marli/ KAREN DOVE MD PHYSICIAN, [facility] Signed: 06/19/2023 08:58 Receipt Acknowledged By: 06/19/2023 10:28 /es/ JOSE BULLOCK RN REGISTERED NURSE 06/19/2023 ADDENDUM STATUS: COMPLETED Called and spoke with Patricia Brooks home care nurse for Vet [phone]. She reports that she is visiting patient today. She states that she had faxed authorization to the home care department requesting weekly skilled nurse visits to monitor a developing pressure area on Vet's buttock's weekly but it was denied. Home Care: Tube Dispatcher will co sign home care department to make this request for weekly skilled nurse visits to monitor a developing pressure area on Vet's buttocks. Tube Dispatcher offered to order mepilex bordered foam. She wanted to hold on this until seeing patient today. Provided a direct phone number to call back. Home care-if request is authorized, agency is requesting faxed authorization orders. Dr. Dove: Patricia asked marketing writer if Vet ever had his labs drawn [...] Patricia states that he lives closest to [facility]. She would be able to assist Vet with arranging a ride to a lab appointment if approved. Tube Dispatcher also offered to move up Vesonia's appt with Dr. Dove which is due in August. This will be considered but Patricia still feels obtaining current lab work now would be helpful. Prior hgb 8.18 Mar 2023. /marli/ JOSE BULLOCK RN REGISTERED NURSE Signed: 06/19/2023 10:26 Receipt Acknowledged By: 06/19/2023 16:24 /kelly DOVE MD PHYSICIAN, [facility] 06/20/2023 12:22 /NIGEL Dutton HOUSEHOLD APPLIANCE REPAIRER CARE SENIOR SOFTWARE SYSTEMS ENGINEER 06/20/2023 ADDENDUM STATUS: COMPLETED CITC entered but declined because the patient doesn't meet drivetime critera. I've ordered CBC and iron count via [facility]. /kelly DOVE MD PHYSICIAN, [facility] Signed: 06/20/2023 08:36 06/20/2023 ADDENDUM STATUS: COMPLETED Received request from agency for authorizationto increase skilled nurse visits (SNV) from [EOW to weekly]. [facility] RN will Informed agency that request has been denied at this time. Per [place] guidance, requested service is considered a general health assessment (GHA), which is not a [facility] covered service. Patients must have a skilled clinical need in order to receive SNV. [facility] RN contacted agency Nurse Allen and educated her on the the use of PRN visits that are covered under current authorization. GHA & education on pressure sore prevention. Nurse Allen verbalized understanding and expressed that the has issues with transportation, his ability to follow up with his medical care needs and he is a fall risk. Pact team: may benefit from services /NIGEL Dutton HOUSEHOLD APPLIANCE REPAIRER CARE SENIOR SOFTWARE SYSTEMS ENGINEER Signed: 06/20/2023 12:37 Receipt Acknowledged By: * AWAITING SIGNATURE * JOSE BULLOCK 06/20/2023 12:42 /kelly DOVE MD PHYSICIAN, [facility] KAREN DOVE [facility]
--- OUTSIDE RECORDS SUMMARY | 2023-09-23 04:46 | XMS_ITS | Encounter Summary ---
Author Name [place] Organization [place] Address [address] [place] [address] Care Team Providers Care Head Librarian Name Role Phone KAREN DOVE Primary Care [...] AID (WNR) Aug 08, 2013 MEDICAI D [id number] [phone] DERICK SKELTON PATIENT MEDICARE (WNR) MEDICARE (M) PART A Sep 07, 2016 PART A [id number] DERICK SKELTON PATIENT Selected Encounter This section includes the information on record at [place] for the Encounter. Date/Time Encounter Type Encounter Description Reason Provider Source August 07, 2023 02:27 PM Outpatient Encounter ADMIN PAT ACTIVTIES (MASNONCT) TRAM AUGUSTE Encounter Template Text not used by [place] [...] 20 appointments. The data comes from all [facility]. Appointment Date/Time Appointment Type Appointme nt Facility Name Aug 25, 2023 11:45 AM [facility] Sep 23, 2023 08:15 AM AMBULATORY - NONE [facility] Sep 23, 2023 09:15 AM AMBULATORY - MEDICINE TONY WILKERSON [facility] Active, Pending, and Scheduled Orders This section includes a listing of several types of active, pending, and scheduled orders, including clinic medications orders, diagnostic test orders, procedure orders and consult orders; where the start date of the order is 45 days before the date of the Encounter or 45 days after the date of theEncounter. The data comes from all [facility]. Test Date/Time Test Type Test Details [...] Aug 20, 2022 09:15 AM VA-TOBACCO USE COUNTY SUPERVISOR NO [facility] Aug 20, 2022 [...] Sep 12, 2021 09:15 AM VA-TOBACCO USE COUNTY SUPERVISOR NO [facility] Sep 12, 2021 [...] Sep 01, 2020 01:30 PM VA-TOBACCO USE COUNTY SUPERVISOR NO [facility] Sep 01, 2020 01:30 PM VA-TOBACCO USE MED NO [facility] Sep 01, 2020 01:30 PM VA-TOBACCO USER EVERY DAY [facility] Sep 27, 2019 09:35 AM VA-TOBACCO USE 30 YEARS OR MORE [facility] Sep 27, 2019 09:35 AM VA-TOBACCO USE ADVICE [facility] Sep 27, 2019 09:35 AM VA-TOBACCO USE COUNTY SUPERVISOR NO [facility] Sep 27, 2019 [...] Mar 04, 2018 01:45 PM VA-TOBACCO USE COUNTY SUPERVISOR NO [facility] Mar 04, 2018 [...] 2023 02:28 PM NONVA NOTE: LOCAL TITLE: [facility]-TREASURE SELF PRESENTING CARE COORD PLAN STANDARD TITLE: NONVA NOTE DATE OF NOTE: AUGUST 05, 2023@14:28 ENTRY DATE: AUGUST 07, 2023@14:28:25 AUTHOR: JOSE LIEBERMAN EXP COSIGNER: URGENCY: STATUS: COMPLETED Emergency Notification Intake Date Presenting to the Facility: July Method of Contact: Notified from Events Core worklist Notification ID: [id number] [facility] Referral #: [facility] Name: Hospital: [facility] Address: City: [place] State: [place] Zip Code: Phone : [facility] Facility Point of Contact: Name: [facility] Chief complaint: HTN/HEADACHE Primary Diagnosis: Disposition Discharged Date of discharge: July Discharge to home /es/ JOSE LIEBERMAN Director Data Processing(AOD) Signed: 08/07/2023 14:31 JOSE LIEBERMAN [facility]
--- OUTSIDE RECORDS SUMMARY | 2023-09-23 04:47 | XMS_ITS | Encounter Summary ---
Author Name [facility] [place] [facility] Address [address] [place] [address] Care Team Providers Care Records Section Supervisor Name Role Phone PETTYKAREN Primary Care Provider [...] AID (WNR) Aug 08, 2013 MEDICAI D [id number] [phone] DERICK SKELTON PATIENT MEDICARE (WNR) MEDICARE (M) PART A Sep 07, 2016 PART A [id number] [phone] DERICK SKELTON PATIENT Selected Encounter This section includes the information on record at [place] for the Encounter. Date/Time Encounter Type Encounter Description Reason Pro vider Source Aug 29, 2023 04:48 PM Outpatient Encounter CLINICAL PHARMACY I[facility] Encounter Template Text not used by [...] 08:15 AM AMBULATORY - NONE [facility] Sep 23, 2023 09:15 AM AMBULATORY - MEDICINE TONY WILKERSON [facility] Active, Pending, and Scheduled Orders This section includes a listing of several types of active, pending, and scheduled orders, including clinic medications orders, diagnostic test orders, procedure orders and consult orders; where the start date of the order is 45 days before the date of the Encounter or 45 days after the date of theEncounter. The data comes from all [facility]] facilities. Test Date/Time Test Type Test Details Facility Name July 18, 2023 12:00 AM Laboratory - Chemi stry Order CBC BLOOD SP ONCE [facility] July 18, 2023 12:00 AM Laboratory - Chemi stry Order IRON GROUP SERUM SP [facility] Sep 28, 2023 12:00 AM Laboratory - Chemi stry Order B 12 SERUM SP ONCE [facility] Sep 28, 2023 12:00 AM Laboratory - Chemi stry Order FOLATE SERUM SP [facility] Sep 28, 2023 12:00 AM Laboratory - Chemi stry Order CBC BLOOD SP [facility] Sep 28, 2023 12:00 AM Laboratory - Chemi stry Order BASIC METABOLIC PANEL+MG PLASMA SP [facility] Social History: Smoking Status (Most [...] 2022 09:15 AM VA-TOBACCO USER EVERY DAY [facility] Tobacco Use History This section includes a history of the smoking, or tobacco-related health factors, that were collected on or before the date of the Encounter. The data comes from the [place] facility where the Encounter took place. Date/Time Smoking Status/Tobacco Use Comment F acility Aug 20, 2022 09:15 AM VA-TOBACCO USE ADVICE [facility] Aug 20, 2022 09:15 AM VA-TOBACCO USE MARKETING REPS SPORTS AND ENTERTAINMENT NO [facility] Aug 20, 2022 09:15 AM VA-TOBACCO USE MED NO [facility] Aug 20, 2022 09:15 AM VA-TOBACCO USE [place] 30 MIN OF WAKE UP [facility] Aug 20, 2022 09:15 AM VA-TOBACCO USER EVERY DAY [facility] Sep 12, 2021 09:15 AM VA-TOBACCO USE 30 YEARS OR MORE [facility] Sep 12, 2021 09:15 AM VA-TOBACCO USE ADVICE [facility] Sep 12, 2021 09:15 AM VA-TOBACCO USE MARKETING REPS SPORTS AND ENTERTAINMENT NO [facility] Sep 12, 2021 09:15 AM VA-TOBACCO USE MED NO [facility] Sep 12, 2021 09:15 AM VA-TOBACCO USE [place] 30 MIN OF WAKE UP [facility] Sep 12, 2021 09:15 AM VA-TOBACCO USER EVERY DAY [facility] Sep 01, 2020 01:30 PM VA-TOBACCO DOESNT USE WI 30 MIN WAKEUP [facility] Sep 01, 2020 01:30 PM VA-TOBACCO USE 30 YEARS OR MORE [facility] Sep 01, 2020 01:30 PM VA-TOBACCO USE ADVICE [facility] Sep 01, 2020 01:30 PM VA-TOBACCO USE MARKETING REPS SPORTS AND ENTERTAINMENT NO [facility] Sep 01, 2020 01:30 PM VA-TOBACCO USE MED NO [facility] Sep 01, 2020 01:30 PM VA-TOBACCO USER EVERY DAY [facility] Sep 27, 2019 09:35 AM VA-TOBACCO USE 30 YEARS OR MORE [facility] Sep 27, 2019 09:35 AM VA-TOBACCO USE ADVICE [facility] Sep 27, 2019 09:35 AM VA-TOBACCO USE MARKETING REPS SPORTS AND ENTERTAINMENT NO [facility] Sep 27, 2019 09:35 AM VA-TOBACCO USE MED NO [facility] Sep 27, 2019 09:35 AM VA-TOBACCO USE [place] 30 MIN OF WAKE UP [facility] Sep 27, 2019 09:35 AM VA-TOBACCO USER EVERY DAY [facility] Mar 04, 2018 01:45 PM VA-TOBACCO USE 30 YEARS OR MORE [facility] Mar 04, 2018 01:45 PM VA-TOBACCO USE ADVICE [facility] Mar 04, 2018 01:45 PM VA-TOBACCO USE MARKETING REPS SPORTS AND ENTERTAINMENT NO [facility] Mar 04, 2018 01:45 PM VA-TOBACCO USE MED NO [facility] Mar 04, 2018 01:45 PM VA-TOBACCO USE [place] 30 MIN OF WAKE UP [facility] Mar 04, 2018 01:45 PM VA-TOBACCO USER EVERY DAY [facility] Apr 22, 2017 10:01 AM CURRENT TOBACCO USER [facility] Apr 16, 2016 09:52 AM CURRENT TOBACCO USER [facility] July 26, 2014 09:08 AM CURRENT TOBACCO USER [facility] Dec 31, 2013 10:06 AM CURRENT TOBACCO USER [facility] Sep 05, 2012 09:27 AM CURRENT TOBACCO USER [facility] Nov 25, 2011 09:12 AM CURRENT TOBACCO USER [facility] Feb 08, 2011 10:04 AM CURRENT TOBACCO USER [facility] May 01, 2010 10:24 AM CURRENT TOBACCO USER [facility] Jul 03, 2009 08:42 AM CURRENT TOBACCO USER [facility] Encounter Notes: All associated encounter notes This section contains the clinical notes associated to the Encounter. Date/Time Encounter Note(s) Provider Source Aug 29, 2023 04:48 PM PHARMACY NOTE: LOCAL TITLE: PHARMACY MEDICATION RETURNED STANDARD TITLE: PHARMACY NOTE DATE OF NOTE: AUG 29, 2023@16:48 ENTRY DATE: AUG 29, 2023@16:48:46 AUTHOR: ELLE FIGUEROA EXP COSIGNER: URGENCY: STATUS: COMPLETED [facility] [address] [place] [address] Aug FRANCES SKELTON [address] [facility] [address] Dear Mr. SKELTON: A package containing the following medication(s)/supply item(s) was returned by the USPS/UPS: brief tranquility Reason for return: Attempted; not known Action: Pharmacy attempted to contact patient unsuccessfully The medication or supply items will be destroyed /marli/ ELLE FIGUEROA Biogeographer Signed: 08/29/2023 16:49 ELLE FIGUEROA [facility]
--- OUTSIDE RECORDS SUMMARY | 2023-09-23 04:47 | XMS_ITS | Encounter Summary ---
Author Name [place] Organization [place] Address [address] [place] [address] Care Team Providers Care Radiographer Cardiac Catheterization Name Role Phone PETTYMARCIALO Primary Care Provider [...] AID (WNR) Aug 08, 2013 MEDICAI D [id number] DERICK SKELTON PATIENT MEDICARE (WNR) MEDICARE (M) PART A Sep 07, 2016 PART A [id number] DERICK SKELTON PATIENT Selected Encounter This section includes the information on record at [place] for the Encounter. Date/Time Encounter Type Encounter Description Reason Provider Source Aug 11, 2023 10:17 AM Outpatient Encounter PRIMARY CARE/MEDICINE [facility] Encounter Template Text not used by [place] [...] 20 appointments. The data comes from all [facility]. Appointment Date/Time Appointment Type Appointme nt Facility Name Aug 25, 2023 11:45 AM AMBULATORY - NONE [place] [facility] Sep 23, 2023 08:15 AM AMBULATORY - NONE [facility] Sep 23, 2023 09:15 AM AMBULATORY - MEDICINE [place] [facility] Active, Pending, and Scheduled Orders This section includes a listing of several types of active, pending, and scheduled orders, including clinic medications orders, diagnostic test orders, procedure orders and consult orders; where the start date of the order is 45 days before the date of the Encounter or 45 days after the date of theEncounter. The data comes from all [facility] facilities. Test Date/Time Test Type Test Details Facility Name July 18, 2023 12:00 AM Laboratory - Chemi stry Order CBC BLOOD SP ONCE [facility] July 18, 2023 12:00 AM Laboratory - Chemi stry Order IRON GROUP SERUM SP [facility] Social History: Smoking Status (Most current) [...] 2022 09:15 AM VA-TOBACCO USER EVERY DAY [facility] Tobacco Use History This section includes a history of the smoking, or tobacco-related health factors, that were collected on or before the date of the Encounter. The data comes from the [place] facility where the Encounter took place. Date/Time Smoking Status/Tobacco Use Comment F acility Aug 20, 2022 09:15 AM VA-TOBACCO USE ADVICE [facility] Aug 20, 2022 09:15 AM VA-TOBACCO USE MEAT CURER NO [facility] Aug 20, 2022 09:15 AM VA-TOBACCO USE MED NO [facility] Aug 20, 2022 09:15 AM VA-TOBACCO USE [place] 30 MIN OF WAKE UP [facility] Aug 20, 2022 09:15 AM VA-TOBACCO USER EVERY DAY [facility] Sep 12, 2021 09:15 AM VA-TOBACCO USE 30 YEARS OR MORE [facility] Sep 12, 2021 09:15 AM VA-TOBACCO USE ADVICE [facility] Sep 12, 2021 09:15 AM VA-TOBACCO USE MEAT CURER NO [facility] Sep 12, 2021 09:15 AM VA-TOBACCO USE MED NO [facility] Sep 12, 2021 09:15 AM VA-TOBACCO USE [place] 30 MIN OF WAKE UP [facility] Sep 12, 2021 09:15 AM VA-TOBACCO USER EVERY DAY [facility] Sep 01, 2020 01:30 PM VA-TOBACCO DOESNT USE [place] 30 MIN WAKEUP [facility] Sep 01, 2020 01:30 PM VA-TOBACCO USE 30 YEARS OR MORE [facility] Sep 01, 2020 01:30 PM VA-TOBACCO USE ADVICE [facility] Sep 01, 2020 01:30 PM VA-TOBACCO USE MEAT CURER NO [facility] Sep 01, 2020 01:30 PM VA-TOBACCO USE MED NO [facility] Sep 01, 2020 01:30 PM VA-TOBACCO USER EVERY DAY [facility] Sep 27, 2019 09:35 AM VA-TOBACCO USE 30 YEARS OR MORE [facility] Sep 27, 2019 09:35 AM VA-TOBACCO USE ADVICE [facility] Sep 27, 2019 09:35 AM VA-TOBACCO USE MEAT CURER NO [facility] Sep 27, 2019 09:35 AM VA-TOBACCO USE MED NO [facility] Sep 27, 2019 09:35 AM VA-TOBACCO USE [place] 30 MIN OF WAKE UP [facility] Sep 27, 2019 09:35 AM VA-TOBACCO USER EVERY DAY [facility] Mar 04, 2018 01:45 PM VA-TOBACCO USE 30 YEARS OR MORE [facility] Mar 04, 2018 01:45 PM VA-TOBACCO USE ADVICE [facility] Mar 04, 2018 01:45 PM VA-TOBACCO USE MEAT CURER NO [facility] Mar 04, 2018 01:45 PM VA-TOBACCO USE MED NO [facility] Mar 04, 2018 01:45 PM VA-TOBACCO USE [place] 30 MIN OF WAKE UP [facility] Mar 04, 2018 01:45 PM VA-TOBACCO USER EVERY DAY [facility] Apr 22, 2017 10:01 AM CURRENT TOBACCO USER [facility] Apr 16, 2016 09:52 AM CURRENT TOBACCO USER [facility] July 26, 2014 09:08 AM CURRENT TOBACCO USER [facility] Dec 31, 2013 10:06 AM CURRENT TOBACCO USER [facility] Sep 05, 2012 09:27 AM CURRENT TOBACCO USER [facility] Nov 25, 2011 09:12 AM CURRENT TOBACCO USER [facility] Feb 08, 2011 10:04 AM CURRENT TOBACCO USER [facility] May 01, 2010 10:24 AM CURRENT TOBACCO USER [facility] Jul 03, 2009 08:42 AM CURRENT TOBACCO USER [facility] Encounter Notes: All associated encounter notes [...] 07:40 PM ET From: FRANCES SKELTON To: [facility] Primary CarePetty L. (Sherita) Subject: Medication:Acyclovir The recent outbreak of shingles has resolved, could you add refills to have on hand for potential herpes outbreaks. Darryl [phone] (memorial marker designer) ------Original Message --- Sent: 08/11/2023 11:17 AM ET From: [facility] To: FRANCES SKELTON Subject: Medication:Acyclovir Hello, I will forward your request to Dr. Dove for review. Gladys Jackman, senior javascript developer Manager- Yeimi/Cliff Haile /marli/ JUJU LOCKEN, RN REGISTERED NURSE Signed: 08/11/2023 10:17 Receipt Acknowledged By: 08/11/2023 14:15 /marli/ KAREN DOVE MD PHYSICIAN, [facility]
--- OUTSIDE RECORDS SUMMARY | 2023-09-23 04:47 | XMS_ITS | Encounter Summary ---
Author Name [facility] [place] Organization [facility] [place] Address [address] [place] [address] Care Team Providers Care Bottom Sprayer Name Role Phone KAREN DOVE Primary Care [...] AID (WNR) Aug 08, 2013 MEDICAI D [id number] [phone] DERICK SKELTON PATIENT MEDICARE (WNR) MEDICARE (M) PART A Sep 07, 2016 PART A [id number] DERICK SKELTON PATIENT Selected Encounter This section includes the information on record at [place] for the Encounter. Date/Time Encounter Type Encounter Description Reason Pro vider Source July 25, 2023 06:45 PM Outpatient Encounter ADMIN PAT ACTIVTIES (MASNONCT) IHE Encounter Template Text not used by [place] [...] 20 appointments. The data comes from all [facility]. Appointment Date/Time Appointment Type Appointme nt Facility Name August 07, 2023 02:27 PM AM[place]ULATORY - NONE [place] [facility] Aug 25, 2023 11:45 AM AMBULATORY - NONE [place] [facility] Sep 23, 2023 08:15 AM AMBULATORY - NONE [place] [facility] Sep 23, 2023 09:15 AM AMBULATORY - MEDICINE [facility] WILKERSON [facility] Active, Pending, and Scheduled Orders This section includes a listing of several types of active, pending, and scheduled orders, including clinic medications orders, diagnostic test orders, procedure orders and consult orders; where the start date of the order is 45 days before the date of the Encounter or 45 days after the date of theEncounter. The data comes from all [facility]. Test Date/Time Test Type Test Details [...] Aug 20, 2022 09:15 AM VA-TOBACCO USE SOFTWARE ASSET MANAGER NO [facility] Aug 20, 2022 09:15 [...] Sep 12, 2021 09:15 AM VA-TOBACCO USE SOFTWARE ASSET MANAGER NO [facility] Sep 12, 2021 09:15 [...] Sep 01, 2020 01:30 PM VA-TOBACCO USE SOFTWARE ASSET MANAGER NO [facility] Sep 01, 2020 01:30 PM VA-TOBACCO USE MED NO [facility] Sep 01, 2020 01:30 PM VA-TOBACCO USER EVERY DAY [facility] Sep 27, 2019 09:35 AM VA-TOBACCO USE 30 YEARS OR MORE [facility] Sep 27, 2019 09:35 AM VA-TOBACCO USE ADVICE [facility] Sep 27, 2019 09:35 AM VA-TOBACCO USE SOFTWARE ASSET MANAGER NO [facility] Sep 27, 2019 09:35 [...] Mar 04, 2018 01:45 PM VA-TOBACCO USE SOFTWARE ASSET MANAGER NO [facility] Mar 04, 2018 01:45 [...] Date/Time Encounter Note(s) Provider Source Aug 21, 2023 11:31 AM HOME HEALTH REFERR AL NOTE: LOCAL TITLE: [facility] CARE STANDARD TITLE: HOME HEALTH REFERRAL NOTE DATE OF NOTE: AUG 21, 2023@11:31 ENTRY DATE: AUG 21, 2023@11:31:13 AUTHOR: ELLEN RODRIGUEZ EXP COSIGNER: URGENCY: STATUS: COMPLETED HOME HEALTH CARE CERTIFICATION AND PLAN OF CARE SIGNED BY: Dr. dove...... Certification period From: 08/19/2023 To: 08/17/2023 /kelly RODRIGUEZ Advanced MSA Signed: 08/21/2023 11:32 ELLEN RODRIGUEZ [facility]
--- OUTSIDE RECORDS SUMMARY | 2023-09-23 04:48 | XMS_ITS | Encounter Summary ---
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 Date/Time Encounter Type Encounter Description Reason Pro vider Source Aug 25, 2023 12:00 PM Outpatient Encounter CLINICAL PHARMACY IHE Encounter Template Text not used by MD Plan of Treatment: Future Appointments (+ 6 months) and Future Tests (+/- 45 days) The Plan of Treatment section includes future care activities for the patient from all [place] treatmentfacilities. This section includes future appointments and future orders which are active, pending or scheduled. Future Appointments This section includes appointments that were scheduled to occur 6 months from the date of the Encounter, up to a maximum of 20 appointments. The data comes from all [place] treatment facilities. Appointment Date/Time Appointment Type Appointme nt Facility Name Sep 23, 2023 08:15 AM AMBULATORY - NONE [facility] CARMONA [facility] Sep 23, 2023 09:15 AM AMBULATORY - MEDICINE TONY WILKERSON [facility] Active, Pending, and Scheduled Orders [...] Chemi stry Order CBC BLOOD SP ONCE [facility] July 18, 2023 12:00 AM Laboratory - Chemi stry Order IRON GROUP SERUM SP [facility] Sep 28, 2023 12:00 AM Laboratory - Chemi stry Order B 12 SERUM SP ONCE [facility] Sep 28, 2023 12:00 AM Laboratory - Chemi stry Order FOLATE SERUM SP [facility] Sep 28, 2023 12:00 AM Laboratory - Chemi stry Order CBC BLOOD SP [facility] Sep 28, 2023 12:00 AM Laboratory - Chemi stry Order BASIC METABOLIC PANEL+MG PLASMA SP [facility] Social History: Smoking Status (Most current) and Tobacco Use (All prior to encounter date) This section includes the most current, and the historical, smoking and tobacco- related health factors from the MD facility where the Encounter took place. Current Smoking Status This section includes the most current smoking, or tobacco-related health factor, from the [place] facility where the Encounter took place. Date/Time Current Smoking Status Comment Facil ity Aug 20, 2022 09:15 AM VA-TOBACCO USER EVERY DAY [facility] Tobacco Use History This section includes a history of the smoking, or tobacco-related health factors, that were collected on or before the date of the Encounter. The data comes from the [place] facility where the Encounter took place. Date/Time Smoking Status/Tobacco Use Comment F acility Aug 20, 2022 09:15 AM VA-TOBACCO USE ADVICE [facility] Aug 20, 2022 09:15 AM VA-TOBACCO USE OIL BURNER TECHNICIAN NO [facility] Aug 20, 2022 09:15 AM VA-TOBACCO USE MED NO [facility] Aug 20, 2022 09:15 AM VA-TOBACCO USE WI 30 MIN OF WAKE UP [facility] Aug 20, 2022 09:15 AM VA-TOBACCO USER EVERY DAY [facility] Sep 12, 2021 09:15 AM VA-TOBACCO USE 30 YEARS OR MORE [facility] Sep 12, 2021 09:15 AM VA-TOBACCO USE ADVICE [facility] Sep 12, 2021 09:15 AM VA-TOBACCO USE OIL BURNER TECHNICIAN NO [facility] Sep 12, 2021 09:15 AM VA-TOBACCO USE MED NO [facility] Sep 12, 2021 09:15 AM VA-TOBACCO USE WI 30 MIN OF WAKE UP [facility] Sep 12, 2021 09:15 AM VA-TOBACCO USER EVERY DAY [facility] Sep 01, 2020 01:30 PM VA-TOBACCO DOESNT USE WI 30 MIN WAKEUP [facility] Sep 01, 2020 01:30 PM VA-TOBACCO USE 30 YEARS OR MORE [facility] Sep 01, 2020 01:30 PM VA-TOBACCO USE ADVICE [facility] Sep 01, 2020 01:30 PM VA-TOBACCO USE OIL BURNER TECHNICIAN NO [facility] Sep 01, 2020 01:30 PM VA-TOBACCO USE MED NO [facility] Sep 01, 2020 01:30 PM VA-TOBACCO USER EVERY DAY [facility] Sep 27, 2019 09:35 AM VA-TOBACCO USE 30 YEARS OR MORE [facility] Sep 27, 2019 09:35 AM VA-TOBACCO USE ADVICE [facility] Sep 27, 2019 09:35 AM VA-TOBACCO USE OIL BURNER TECHNICIAN NO [facility] Sep 27, 2019 09:35 AM VA-TOBACCO USE MED NO [facility] Sep 27, 2019 09:35 AM VA-TOBACCO USE WI 30 MIN OF WAKE UP [facility] Sep 27, 2019 09:35 AM VA-TOBACCO USER EVERY DAY [facility] Mar 04, 2018 01:45 PM VA-TOBACCO USE 30 YEARS OR MORE [facility] Mar 04, 2018 01:45 PM VA-TOBACCO USE ADVICE [facility] Mar 04, 2018 01:45 PM VA-TOBACCO USE OIL BURNER TECHNICIAN NO [facility] Mar 04, 2018 01:45 PM VA-TOBACCO USE MED NO [facility] Mar 04, 2018 01:45 PM VA-TOBACCO USE WI 30 MIN OF WAKE UP [facility] Mar 04, 2018 01:45 PM VA-TOBACCO USER EVERY DAY [facility] Apr 22, 2017 10:01 AM CURRENT TOBACCO USER [facility] Apr 16, 2016 09:52 AM CURRENT TOBACCO USER [facility] July 26, 2014 09:08 AM CURRENT TOBACCO USER [facility] Dec 31, 2013 10:06 AM CURRENT TOBACCO USER [facility] Sep 05, 2012 09:27 AM CURRENT TOBACCO USER [facility] Nov 25, 2011 09:12 AM CURRENT TOBACCO USER [facility] Feb 08, 2011 10:04 AM CURRENT TOBACCO USER [facility] May 01, 2010 10:24 AM CURRENT TOBACCO USER [facility] Jul 03, 2009 08:42 AM CURRENT TOBACCO USER [facility] Encounter Notes: All associated encounter notes This section contains the clinical notes associated to the Encounter. Date/Time Encounter Note(s) Provider Source Aug 25, 2023 12:00 PM NONVA CONSULT: LOCAL TITLE: COMMUNITY CARE CONSULT RESULT CHIROPRACTIC STANDARD TITLE: NONVA CONSULT DATE OF NOTE: AUG 25, 2023@12:00 ENTRY DATE: SEP 04, 2023@22:44:13 AUTHOR: MEL IBARRA EXP COSIGNER: URGENCY: STATUS: COMPLETED VistA Imaging - Scanned Document SCANNED DOCUMENT SIGNATURE NOT REQUIRED Electronically Filed: 09/04/2023 by: MEL IBARRA LPN LICENSED PRACTICAL NURSE MEL IBARRA [facility]
--- OUTSIDE RECORDS SUMMARY | 2023-09-23 04:48 | XMS_ITS | Encounter Summary ---
Author Name [facility] [place] Address [address] [place] [address] Care Team Providers Care Verifying Specialist Name Role Phone KAREN DOVE Primary Care [...] AID (WNR) Aug 08, 2013 MEDICAI D [id number] [phone] DERICK SKELTON PATIENT MEDICARE (WNR) MEDICARE (M) PART A Sep 07, 2016 PART A [id number] [phone] DERICK SKELTON PATIENT Selected Encounter This section includes the information on record at [place] for the Encounter. Date/Time Encounter Type Encounter Description Reason Pro vider Source Aug 30, 2023 02:11 PM Outpatient Encounter ADMIN PAT ACTIVTIES (MASNONCT) IHE Encounter Template Text not used by [place] [...] 20 appointments. The data comes from all [facility]. Appointment Date/Time Appointment Type Appointme nt Facility Name Sep 23, 2023 08:15 AM AMBULATORY - NONE [facility] CARMONA [facility] Sep 23, 2023 09:15 AM AMBULATORY - MEDICINE TONY WILKERSON [facility] Active, Pending, and Scheduled Orders This section includes a listing of several types of active, pending, and scheduled orders, including clinic medications orders, diagnostic test orders, procedure orders and consult orders; where the start date of the order is 45 days before the date of the Encounter or 45 days after the date of theEncounter. The data comes from all [facility]. Test Date/Time Test Type Test Details Facility Name July 18, 2023 12:00 AM Laboratory - Chemi stry Order CBC BLOOD SP ONCE [facility] July 18, 2023 12:00 AM Laboratory - Chemi stry Order IRON GROUP SERUM [facility] Sep 28, 2023 12:00 AM Laboratory - Chemi stry Order B 12 SERUM SP [facility] Sep 28, 2023 12:00 AM Laboratory - Chemi stry Order CBC BLOOD [facility] Sep 28, 2023 12:00 AM Laboratory - Chemi stry Order FOLATE SERUM [facility] Sep 28, 2023 12:00 AM Laboratory - Chemi stry Order BASIC METABOLIC PANEL+MG PLASMA [facility] Social History: [...] 2022 09:15 AM VA-TOBACCO USER EVERY DAY [facility] Tobacco Use History This section includes a history of the smoking, or tobacco-related health factors, that were collected on or before the date of the Encounter. The data comes from the [place] facility where the Encounter took place. Date/Time Smoking Status/Tobacco Use Comment F acility Aug 20, 2022 09:15 AM VA-TOBACCO USE ADVICE [facility] Aug 20, 2022 09:15 AM VA-TOBACCO USE MOLDER BENCH NO [facility] Aug 20, 2022 09:15 AM VA-TOBACCO USE MED NO [facility] Aug 20, 2022 09:15 AM VA-TOBACCO USE WI 30 MIN OF WAKE UP [facility] Aug 20, 2022 09:15 AM VA-TOBACCO USER EVERY DAY [facility] Sep 12, 2021 09:15 AM VA-TOBACCO USE 30 YEARS OR MORE [facility] Sep 12, 2021 09:15 AM VA-TOBACCO USE ADVICE [facility] Sep 12, 2021 09:15 AM VA-TOBACCO USE MOLDER BENCH NO [facility] Sep 12, 2021 09:15 AM VA-TOBACCO USE MED NO [facility] Sep 12, 2021 09:15 AM VA-TOBACCO USE WI 30 MIN OF WAKE UP [facility] Sep 12, 2021 09:15 AM VA-TOBACCO USER EVERY DAY [facility] Sep 01, 2020 01:30 PM VA-TOBACCO DOESNT USE WI 30 MIN WAKEUP [facility] Sep 01, 2020 01:30 PM VA-TOBACCO USE 30 YEARS OR MORE [facility] Sep 01, 2020 01:30 PM VA-TOBACCO USE ADVICE [facility] Sep 01, 2020 01:30 PM VA-TOBACCO USE MOLDER BENCH NO [facility] Sep 01, 2020 01:30 PM VA-TOBACCO USE MED NO [facility] Sep 01, 2020 01:30 PM VA-TOBACCO USER EVERY DAY [facility] Sep 27, 2019 09:35 AM VA-TOBACCO USE 30 YEARS OR MORE [facility] Sep 27, 2019 09:35 AM VA-TOBACCO USE ADVICE [facility] Sep 27, 2019 09:35 AM VA-TOBACCO USE MOLDER BENCH NO [facility] Sep 27, 2019 09:35 AM VA-TOBACCO USE MED NO [facility] Sep 27, 2019 09:35 AM VA-TOBACCO USE WI 30 MIN OF WAKE UP [facility] Sep 27, 2019 09:35 AM VA-TOBACCO USER EVERY DAY [facility] Mar 04, 2018 01:45 PM VA-TOBACCO USE 30 YEARS OR MORE [facility] Mar 04, 2018 01:45 PM VA-TOBACCO USE ADVICE [facility] Mar 04, 2018 01:45 PM VA-TOBACCO USE MOLDER BENCH NO [facility] Mar 04, 2018 01:45 PM VA-TOBACCO USE MED NO [facility] Mar 04, 2018 01:45 PM VA-TOBACCO USE WI 30 MIN OF WAKE UP [facility] Mar 04, 2018 01:45 PM VA-TOBACCO USER EVERY DAY [facility] Apr 22, 2017 10:01 AM CURRENT TOBACCO USER [facility] Apr 16, 2016 09:52 AM CURRENT TOBACCO USER [facility] July 26, 2014 09:08 AM CURRENT TOBACCO USER [facility] Dec 31, 2013 10:06 AM CURRENT TOBACCO USER [facility] Sep 05, 2012 09:27 AM CURRENT TOBACCO USER [facility] Nov 25, 2011 09:12 AM CURRENT TOBACCO USER [facility] Feb 08, 2011 10:04 AM CURRENT TOBACCO USER [facility] May 01, 2010 10:24 AM CURRENT TOBACCO USER [facility] Jul 03, 2009 08:42 AM CURRENT TOBACCO USER [facility] Encounter Notes: All associated encounter notes This section contains the clinical notes associated to the Encounter. Date/Time Encounter Note(s) Provider Source Aug 30, 2023 02:11 PM LETTERS: LOCAL TITLE: FOLLOW UP RESULTS LETTER STANDARD TITLE: LETTERS DATE OF NOTE: AUG 30, 2023@14:11 ENTRY DATE: AUG 30, 2023@14:11:49 AUTHOR: KIAH PATEL EXP COSIGNER: URGENCY: STATUS: COMPLETED [facility] [address] [place] [address] Aug [place] [id number] [facility] [address] Dear [place]: We have been unable to reach you to reschedule your follow up chest CT that was recommended by your doctor. Follow up chest CT scans are important as we need to monitor your lung nodules for any changes that may be concerning for lung cancer. Please contact our cable assembler at [phone] to schedule your follow up chest CT scan as soon as possible. If we do not hear from you within 14 days, you will be discharged from lung cancer screening clinic and you will not be contacted regarding this appointment again. If you are scheduled for a scan in the future and you have symptoms of a chest cold at that time, please call number on appointment letter to reschedule for four weeks after symptoms improve. If you have any further questions or problems, please contact Lung Cancer Screening staff at [phone]. KIAH PATEL RN REGISTERED NURSE KIAH PATEL [facility]
--- OUTSIDE RECORDS SUMMARY | 2023-09-23 04:49 | XMS_ITS | Encounter Summary ---
Author Name [facility] [place] Organization [place] Address [address] [place] [address] Care Team Providers Care Portable Irrigation Operator Name Role Phone PETTY KAREN Primary Care [...] AID (WNR) Aug 08, 2013 MEDICAI D [id number] [phone] DERICK SKELTON PATIENT MEDICARE (WNR) MEDICARE ([place]) PART A Sep 07, 2016 PART A [id number] [phone] DERICK SKELTON PATIENT Selected Encounter This section includes the information on record at [place] for the Encounter. Date/Time Encounter Type Encounter Description Reason Pro vider Source Sep 17, 2023 11:33 AM Outpatient Encounter OPHTHALMOLOGY IHE Encounter Template Text not used by [...] 08:15 AM AMBULATORY - NONE [facility]RA CARMONA [facility] Sep 23, 2023 09:15 AM AMBULATORY - MEDICINE TONY WILKERSON [facility] Active, Pending, and Scheduled Orders This section includes a listing of several types of active, pending, and scheduled orders, including clinic medications orders, diagnostic test orders, procedure orders and consult orders; where the start date of the order is 45 days before the date of the Encounter or 45 days after the date of theEncounter. The data comes from all [facility] facilities. Test Date/Time Test Type Test Details Facility Name Sep 28, 2023 12:00 AM Laboratory - Chemi stry Order B [address] [facility] Sep 28, 2023 12:00 AM Laboratory - Chemi stry Order FOLATE SERUM [facility] Sep 28, 2023 12:00 AM Laboratory - Chemi stry Order CBC BLOOD [facility] Sep 28, 2023 12:00 AM Laboratory - Chemi stry Order BASIC METABOLIC PANEL+MG PLASMA [facility] Social History: Smoking Status (Most current) and [...] 09:15 AM VA-TOBACCO USER EVERY DAY [facility] Tobacco Use History This section includes a history of the smoking, or tobacco-related health factors, that were collected on or before the date of the Encounter. The data comes from the [place] facility where the Encounter took place. Date/Time Smoking Status/Tobacco Use Comment F acility Aug 20, 2022 09:15 AM VA-TOBACCO USE ADVICE [facility] Aug 20, 2022 09:15 AM VA-TOBACCO USE JUMPBASTING FACING BASTER NO [facility] Aug 20, 2022 09:15 AM VA-TOBACCO USE MED NO [facility] Aug 20, 2022 09:15 AM VA-TOBACCO USE WI [address] UP [facility] Aug 20, 2022 09:15 AM VA-TOBACCO USER EVERY DAY [facility] Sep 12, 2021 09:15 AM VA-TOBACCO USE [address] [facility] Sep 12, 2021 09:15 AM VA-TOBACCO USE ADVICE [facility] Sep 12, 2021 09:15 AM VA-TOBACCO USE JUMPBASTING FACING BASTER NO [facility] Sep 12, 2021 09:15 AM VA-TOBACCO USE MED NO [facility] Sep 12, 2021 09:15 AM VA-TOBACCO USE WI [address] MIN [address] UP [facility] Sep 12, 2021 09:15 AM VA-TOBACCO USER EVERY DAY [facility] Sep 01, 2020 01:30 PM VA-TOBACCO DOESNT USE [place] [address] [facility] Sep 01, 2020 01:30 PM VA-TOBACCO USE [address] [facility] Sep 01, 2020 01:30 PM VA-TOBACCO USE ADVICE [facility] Sep 01, 2020 01:30 PM VA-TOBACCO USE JUMPBASTING FACING BASTER NO [facility] Sep 01, 2020 01:30 PM VA-TOBACCO USE MED NO [facility] Sep 01, 2020 01:30 PM VA-TOBACCO USER EVERY DAY [facility] Sep 27, 2019 09:35 AM VA-TOBACCO USE [address] [facility] Sep 27, 2019 09:35 AM VA-TOBACCO USE ADVICE [facility] Sep 27, 2019 09:35 AM VA-TOBACCO USE JUMPBASTING FACING BASTER NO [facility] Sep 27, 2019 09:35 AM VA-TOBACCO USE MED NO [facility] Sep 27, 2019 09:35 AM VA-TOBACCO USE WI [address] [facility] Sep 27, 2019 09:35 AM VA-TOBACCO USER EVERY DAY [facility] Mar 04, 2018 01:45 PM VA-TOBACCO USE [address] [facility] Mar 04, 2018 01:45 PM VA-TOBACCO USE ADVICE [facility] Mar 04, 2018 01:45 PM VA-TOBACCO USE JUMPBASTING FACING BASTER NO [facility] Mar 04, 2018 01:45 PM VA-TOBACCO USE MED NO [facility] Mar 04, 2018 01:45 PM VA-TOBACCO USE WI [address] [facility] Mar 04, 2018 01:45 PM VA-TOBACCO USER EVERY DAY [facility] Apr 22, 2017 10:01 AM CURRENT TOBACCO USER [facility] Apr 16, 2016 09:52 AM CURRENT TOBACCO USER [facility] July 26, 2014 09:08 AM CURRENT TOBACCO USER [facility] Dec 31, 2013 10:06 AM CURRENT TOBACCO USER [facility] Sep 05, 2012 09:27 AM CURRENT TOBACCO USER [facility] Nov 25, 2011 09:12 AM CURRENT TOBACCO USER [facility] Feb 08, 2011 10:04 AM CURRENT TOBACCO USER [facility] May 01, 2010 10:24 AM CURRENT TOBACCO USER [facility] Jul 03, 2009 08:42 AM CURRENT TOBACCO USER [facility] Encounter Notes: All associated encounter notes This section contains the clinical notes associated to the Encounter. Date/Time Encounter Note(s) Provider Source Sep 17, 2023 11:33 AM REPORT OF CONTACT: LOCAL TITLE: APPOINTMENT SCHEDULING NOTE STANDARD TITLE: REPORT OF CONTACT DATE OF NOTE: SEP 17, 2023@11:33 ENTRY DATE: SEP 17, 2023@11:33:55 AUTHOR: IVET DICKINSON EXP COSIGNER: URGENCY: STATUS: COMPLETED Attempted to schedule Return to clinic (RTC) Contact attempt made to [place] 1st attempt Telephone 2nd attempt Letter - Sent letter by regular [place] mail to address on file: [place] [address], [place] [address] Left message on voice mail to call back to this number [phone] If calls back, schedule appt for: [facility] OPHTHAL HENNY /marli/ IVET DICKINSON AMSA Signed: 09/17/2023 11:[address] [facility]
--- OUTSIDE RECORDS SUMMARY | 2023-09-23 04:49 | XMS_ITS | Clinical Summary ---
Author Organization [employer] [facility] s [facility] Address [place], [place] [address] Care Team Providers Care Refrigeration Technician Name Role Phone Votel, Abimael Montana [...] 09/13/2012 H/O radical prostatectomy 09/13/2012 Overview: 09/01/2012 [facility] Adrenal adenoma 09/03/2011 Low back pain 09/03/2011 Overview: Takes Ibuprofen as needed Neuropathy 09/03/2011 Overview: Uses gabapentin (1600mg four times daily) outpatient. Depression, major Overview: On Effexor outpatient H/O prostate cancer Overview: managed through [facility] Resolved Problems Problem Noted Date Diagnosed Date Resolved Date Cellulitis of Penis and Scotum 09/14/2012 09/15/2012 Prostate cancer 08/19/2012 05/15/2014 Overview: Treatment through [place] Tobacco abuse 09/03/2011 09/14/2012 Encounters Date Type Department Care Team Description 08/06/2023 9:00 AM CDT Ancillary Procedure [facility] & [address] [address] 08/06/2023 Travel from Last 3 Months Immunizations Name Administration Dates Next Due Influenza Virus, Unspecified 12/22/2013,12/31/19 12 Pneumococcal Poly,23-Valent (Pneumovax) 09/27/19 20 Pneumococcal conj 13-Valent (Prevnar 13) 019 Pneumococcal, Unspecified 08/09/2009 Tdap 02/07/2017,12/22/2013,07/03/2011 Zoster (Shingrix-RZV, recombinant) 09/12/2021, Zoster (Zostavax-ZVL, live) 11/19/2011 Family History Medical [...] Hepatitis C screening for age 18-79 09/21/1969 Depression screening for age 12+ 07/10/2016 07/11/19 16 BMI (ht and wt on same day) for age 18+ 07/05/2017 07/05/2016 Lipids for age 45-75 07/13/2018 07/13/2013, 03/10/19 11 Colonoscopy through age 75 03/10/2020 03/10/2010 COVID-19 vaccine series ( season) 2022 Influenza for age 65+ 11/09/2023 12/22/2013, 012 Tetanus booster 02/07/2027 02/07/2017, 12/08, 07/03/2011 Tdap Completed 02/07/2017, 12/08, 07/03/2011 Pneumococcal series for age 65+ Completed 09/27/2019, 03/26/2018, 08/09/2009 Zoster (shingles) series for age 50+ Completed 09/12/2021, 09/27/2019, 11/19/2011 Procedures Procedure Name Priority Date/Time Associated Diagnosis [...] ECHOCARDIOGRAM FRANCES Flores NAFISA ? Accession#: ?? [id number] : ?1950 72 years Study Date: ?? 08/06/2023 9:23:21 AM Gender: M ?BP: ? 103/56 mmHg Height: 183.00 cm ?BSA: ?1.81 m? ? ? Weight: 62.00 kg ? Tech: ? MSR ? Referring MD: CARMELA MACE Site: ? [facility] Reading Location: [facility] Patient Location: Inpatient. Procedure: 2D, Color Doppler [...] . This study was interpreted by an [facility] accredited facility. CC: HIM (med records) [facility], Med/Surg - IP [facility]. ??Final ?? Procedure Note Radha Luevano MD - 08/06/2023 ECHOCARDIOGRAM FRANCES GAGE : 1950 72 years Study Date: 08/06/2023 9:23:21 AM Gender: M BP: 103/56 mmHg Height: 183.00 cm BSA: 1.81 m? ? ? Weight: 62.00 kg Tech: MSR Referring MD: CARMELA MACE Site: [facility] Reading Location: Mobile [facility] Patient Location: Inpatient. Procedure: 2D, Color Doppler [...] interpreted by an [facility] accredited facility. CC: [facility] (med records) [facility], Med/Surg - IP [facility]. Final Carmela Mace MD ECHO ORD * LIPID PANEL (07/13/2013 9:56 AM CDT) [facility] CHOLESTEROL,TOTAL 198 100 - 199 mg/dL 07/13/2013 8:51 PM CDT [facility] TRIGLYCERIDES 117 <150 mg/dL 07/13/2013 8:51 PM CDT [facility] HDL CHOLESTEROL 55 >40 mg/dL 4 8:51 PM CDT [facility] NON-HDL CHOLESTEROL 143 <145 mg/dl 07/13/2013 8:51 PM CDT [facility] CHOL/HDL RATIO 3.60 <4.50 07/13/2013 8:51 PM CDT [facility] LDL CHOLESTEROL 120 <=130 mg/dL 07/13/2013 8:51 PM CDT [facility] PATIENT STATUS NOT GIVEN 07/13/2013 8:51 PM CDT [facility] Blood specimen (specimen) BLOOD SPECIMEN / Unknown Venipuncture / Unknown 07/13/2013 9:56 AM CDT 07/13/2013 9:56 AM CDT Odin Whitten MD CHEMISTRY [facility] [address] [place] [address], from Last 3 Months or Most Recently Relevant to Health Maintenance Advance Directives * Full Code (Latest Code Status on File) Date Activated Date Inactivated Comments 09/14/2012 1:22 AM 09/15/2012 5:58 PM Care Teams Refrigeration Technician Relationship Specialty Start Date End Date Votel, Abimael Montana MD [address] [place] [address] PCP - General Family Practice 08/07/23
--- OUTSIDE RECORDS SUMMARY | 2023-09-23 04:49 | XMS_ITS | Encounter Summary ---
Author Name [facility] [place] Organization [facility] [facility] [place] Address [address] [place] [address] Care Team Providers Care Hide Worker Name Role Phone KAREN DOVE Primary Care [...] AID (WNR) Aug 08, 2013 MEDICAI D [id number] [phone] DERICK SKELTON PATIENT MEDICARE (WNR) MEDICARE (M) PART A Sep 07, 2016 PART A [id number] DERICK SKELTON PATIENT Selected Encounter This section includes the information on record at [place] for the Encounter. Date/Time Encounter Type Encounter Description Reason Pro vider Source IHE Encounter Template Text not used by [place]
--- OUTSIDE RECORDS SUMMARY | 2023-09-23 04:49 | XMS_ITS | Encounter Summary ---
Author Name [facility] [place] [facility] [place] Organization [facility] [place] Address [address] [place] [address] Care Team Providers Care Wiping Cloth Cutter Name Role Phone KAREN DOVE Primary Care [...] AID (WNR) Aug 08, 2013 MEDICAI D [id number] [phone] DERICK SKELTON PATIENT MEDICARE (WNR) MEDICARE (M) PART A Sep 07, 2016 PART A [id number] DERICK SKELTON PATIENT Selected Encounter This section includes the information on record at [place] for the Encounter. Date/Time Encounter Type Encounter Description Reason Pro vider Source Sep 19, 2023 11:45 AM Outpatient Encounter ADMIN PAT ACTIVTIES (MASNONCT) KAREN DOVE Encounter Template Text not used by [place] [...] comes from all [facility]. Appointment Date/Time Appointment Type Appointme nt Facility Name Sep 23, 2023 08:15 AM AMBULATORY - NONE ANDRA CARMONA [facility] Sep 23, 2023 09:15 AM AMBULATORY - MEDICINE TONY WILKERSON [facility] Active, Pending, and Scheduled Orders [...] comes from all [facility]. Test Date/Time Test Type Test Details Facility Name Sep 28, 2023 12:00 AM Laboratory - Chemi stry Order FOLATE SERUM [facility] Sep 28, 2023 12:00 AM Laboratory - Chemi stry Order B 12 SERUM SP ONCE [facility] Sep 28, 2023 12:00 AM Laboratory - Chemi stry Order BASIC METABOLIC PANEL+MG PLASMA SP [facility] Sep 28, 2023 12:00 AM Laboratory - Chemi stry Order CBC BLOOD [facility] Social History: Smoking Status (Most current) [...] 2022 09:15 AM VA-TOBACCO USER EVERY DAY [facility] Tobacco Use History This section includes a history of the smoking, or tobacco-related health factors, that were collected on or before the date of the Encounter. The data comes from the [place] facility where the Encounter took place. Date/Time Smoking Status/Tobacco Use Comment F acility Aug 20, 2022 09:15 AM VA-TOBACCO USE ADVICE [facility] Aug 20, 2022 09:15 AM VA-TOBACCO USE BAR HOSTESS NO [facility] Aug 20, 2022 09:15 AM VA-TOBACCO USE MED NO [facility] Aug 20, 2022 09:15 AM VA-TOBACCO USE WI 30 MIN OF WAKE UP [facility] Aug 20, 2022 09:15 AM VA-TOBACCO USER EVERY DAY [facility] Sep 12, 2021 09:15 AM VA-TOBACCO USE 30 YEARS OR MORE [facility] Sep 12, 2021 09:15 AM VA-TOBACCO USE ADVICE [facility] Sep 12, 2021 09:15 AM VA-TOBACCO USE BAR HOSTESS NO [facility] Sep 12, 2021 09:15 AM VA-TOBACCO USE MED NO [facility] Sep 12, 2021 09:15 AM VA-TOBACCO USE WI 30 MIN OF WAKE UP [facility] Sep 12, 2021 09:15 AM VA-TOBACCO USER EVERY DAY [facility] Sep 01, 2020 01:30 PM VA-TOBACCO DOESNT USE WI 30 MIN WAKEUP [facility] Sep 01, 2020 01:30 PM VA-TOBACCO USE 30 YEARS OR MORE [facility] Sep 01, 2020 01:30 PM VA-TOBACCO USE ADVICE [facility] Sep 01, 2020 01:30 PM VA-TOBACCO USE BAR HOSTESS NO [facility] Sep 01, 2020 01:30 PM VA-TOBACCO USE MED NO [facility] Sep 01, 2020 01:30 PM VA-TOBACCO USER EVERY DAY [facility] Sep 27, 2019 09:35 AM VA-TOBACCO USE 30 YEARS OR MORE [facility] Sep 27, 2019 09:35 AM VA-TOBACCO USE ADVICE [facility] Sep 27, 2019 09:35 AM VA-TOBACCO USE BAR HOSTESS NO [facility] Sep 27, 2019 09:35 AM VA-TOBACCO USE MED NO [facility] Sep 27, 2019 09:35 AM VA-TOBACCO USE WI 30 MIN OF WAKE UP [facility] Sep 27, 2019 09:35 AM VA-TOBACCO USER EVERY DAY [facility] Mar 04, 2018 01:45 PM VA-TOBACCO USE 30 YEARS OR MORE [facility] Mar 04, 2018 01:45 PM VA-TOBACCO USE ADVICE [facility] Mar 04, 2018 01:45 PM VA-TOBACCO USE BAR HOSTESS NO [facility] Mar 04, 2018 01:45 PM VA-TOBACCO USE MED NO [facility] Mar 04, 2018 01:45 PM VA-TOBACCO USE WI 30 MIN OF WAKE UP [facility] Mar 04, 2018 01:45 PM VA-TOBACCO USER EVERY DAY [facility] Apr 22, 2017 10:01 AM CURRENT TOBACCO USER [facility] Apr 16, 2016 09:52 AM CURRENT TOBACCO USER [facility] July 26, 2014 09:08 AM CURRENT TOBACCO USER [facility] Dec 31, 2013 10:06 AM CURRENT TOBACCO USER [facility] Sep 05, 2012 09:27 AM CURRENT TOBACCO USER [facility] Nov 25, 2011 09:12 AM CURRENT TOBACCO USER [facility] Feb 08, 2011 10:04 AM CURRENT TOBACCO USER [facility] May 01, 2010 10:24 AM CURRENT TOBACCO USER [facility] Jul 03, 2009 08:42 AM CURRENT TOBACCO USER [facility] Encounter Notes: All associated encounter notes This section contains the clinical notes associated to the Encounter. Date/Time Encounter Note(s) Provider Source Sep 19, 2023 11:45 AM PULMONARY NOTE: LOCAL TITLE: PULMONARY LUNG CANCER SCREENING STANDARD TITLE: PULMONARY NOTE DATE OF NOTE: SEP 19, 2023@11:45 ENTRY DATE: SEP 19, 2023@11:45:43 AUTHOR: KIAH PATEL EXP COSIGNER: URGENCY: STATUS: COMPLETED UNABLE TO TRACK NODULE: Tracking of lung nodule IS indicated per guidelines but cannot be done, e.g., patient declines, patient , care transferred to another site. Date of most recent follow-up image: Date: August 20, 2022 Reason lung nodule will not be tracked: UNABLE TO TRACK PULMONARY NODULE: Patient has declined or failed to respond to scheduling attempts for recommended follow up chest CT for pulmonary nodule(s), but REMAINS ELIGIBLE FOR LUNG CANCER SCREENING AT THIS TIME. IF PATIENT BECOMES WILLING TO PROCEED WITH FOLLOW UP EXAM, PLEASE CONTACT LUNG CANCER SCREENING PROGRAM Plan: Patient will be discharged from screening program at this time, can be enrolled in the future if eligible and patient wishes to participate in lung cancer screening. Referring provider has been notified. Patient contacted by other method: Comment: warning letter 08/30/23 Communicated to Primary Care Provider /marli/ KIAH PATEL RN REGISTERED NURSE Signed: 09/19/2023 11:46 Receipt Acknowledged By: 2023 14:58 /marli/ KAREN DOVE MD PHYSICIAN, [facility] KIAH PATEL [facility]
== END 2023-09-10 14:19 | disposition home or self-care (01) ==
LOC: AMB 09-23 04:35
PROVIDERS: Visit Provider Emergency Medicine
DX: T14.90XA Injury, unspecified, initial encounter (principal)
CPT/HCPCS: A0998

== ENCOUNTER 2024-11-20 14:45 | Outpatient (CLI) | payer OTHER, SELFPAY | END 2024-11-20 14:46 | disposition home or self-care (01) | LOC: AMB 11-22 13:39 | PROVIDERS: Visit Provider Family Medicine | DX: R11.2 Nausea with vomiting, unspecified (principal); R19.7 Diarrhea, unspecified; R53.1 Weakness | CPT/HCPCS: A0425; A0433 ==

== ENCOUNTER 2024-11-20 15:33 | Emergency (ER) | payer OTHER, SELFPAY ==
[2024-11-20] VITALS (35 sets, daily range): BP systolic 158–218; BP diastolic 77–116; PULSE 70–107; RESP 4–20; TEMP 36.8; O2SAT 92–100; BMI 18.3
--- OUTSIDE RECORDS SUMMARY | 2024-11-20 15:36 | XMS_ITS | Clinical Summary ---
Author Organization [employer] [facility] Address [address] [place] [address] Care Team Providers Care Computational Geneticist Name Role Phone Pcp, No Primary Care Provider Unavailabl e Allergies Active Allergy Reactions Criticality Noted Date Comments Butorphanol Hallucinations,Rash 01/16/2009 Medications budesonide (PULMICORT) 180 mcg/actuation inhaler Inhale 180 mcg by mouth 2 times daily. 1 Inhaler 8 Active Ferrous Gluconate 324 mg (38 mg iron) tablet Take one tablet by mouth every other day. 0 8 Active traZODone (DESYREL) 50 mg tablet Take 3 tablets by mouth at bedtime. 0 8 Active atorvastatin (LIPITOR) 20 mg tablet Take 0.5 tablets by mouth once daily. 0 8 Active multivitamin (MULTIPLE VITAMINS) tablet Take 1 tablet by mouth once daily. 0 8 Active albuterol (PROAIR RESPICLICK) 90 mcg/actuation INHALER Inhale 2 Puffs by mouth every 4 hours. As needed. 0 8 Active sildenafil citrate (VIAGRA) 100 mg tablet Take 1 tablet by mouth once daily if needed for Erectile Dysfunction. Take 30min to 4 hours before sexual activity. Max 100mg/24hr. 0 8 Active buPROPion (WELLBUTRIN SR) 100 mg Sustained-Rele ase tablet Take 2 tablets by mouth 2 times daily. 0 8 Active busPIRone (BUSPAR) 10 mg tablet Take 2 tablets by mouth 3 times daily. 0 8 Active acyclovir (ZOVIRAX) 200 mg capsule Take 2 capsules by mouth 5 times daily. 100 capsule 8 Active acetaminophen (TYLENOL) 500 mg capsule Take 2 capsules by mouth every 8 hours if needed. Max acetaminophen dose: 4000mg in 24 hrs. 0 8 Active omeprazole (PRILOSEC) 20 mg Delayed-Releas e capsule Take 2 capsules by mouth 2 times daily before meals. 0 8 Active Active Problems Problem Noted Date Diagnosed Date Edema of penis and urethritis 09/15/2012 COPD (chronic obstructive pulmonary disease) 10/2012 Overview (09/14/2012): On Albuterol and Symbicort outpatient UTI (lower urinary tract infection) 09/14/2012 ACP (advance care planning) 09/14/2012 Overview (09/14/2012): Full Code, to medical proxy. PTSD (post-traumatic stress disorder) 09/13/2012 H/O radical prostatectomy 09/13/2012 Overview (09/13/2012): 09/01/2012 [facility] Adrenal adenoma 09/03/2011 Low back pain 09/03/2011 Overview (09/14/2012): Takes Ibuprofen as needed Neuropathy 09/03/2011 Overview (09/14/2012): Uses gabapentin (1600mg four times daily) outpatient. Depression, major Overview (09/14/2012): On Effexor outpatient H/O prostate cancer Overview (05/15/2014): managed through [facility] Resolved Problems Problem Noted Date Diagnosed Date Resolved Date Cellulitis of Penis and Scotum 09/14/2012 09/15/2012 Prostate cancer 08/19/2012 05/15/2014 Overview (08/19/2012): Treatment through [place] Tobacco abuse 09/03/2011 09/14/2012 Immunizations Immunization Administration Dates Next Due Influenza Virus, Unspecified 12/22/2013,12/31/19 12 Pneumococcal Poly,23-Valent (Pneumovax) 09/27/19 20 Pneumococcal conj 13-Valent (Prevnar 13) 01/17/2 019 Pneumococcal, Unspecified 08/09/2009 Tdap 02/07/2017,12/22/2013,07/03/2011 Zoster [...] Recorded Sex Assigned at Not on file Legal 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 Gender Identity Not on file Sexual Orientation Not on file Obstetrics History Last Filed Vital Signs Vital Sign Reading Time Taken Comments Blood Pressure 126/72 12/24/2017 10:01 AM CDT to wer Pulse 85 12/24/2017 10:01 AM CDT Temperature 36.9 C (98.4 F) 07/05/2016 9:48 AM CDT Respiratory Rate 18 09/15/2012 8:00 AM CDT Oxygen Saturation 99% 12/24/2017 10:01 AM CDT Inhaled Oxygen Concentration - - Weight 70.8 kg (156 lb) 12/24/2017 10:01 AM CDT Height 182.9 cm (6') 07/05/2016 9:48 AM CDT Body Mass Index 21.16 07/05/2016 9:48 AM CDT Plan of Treatment Health Maintenance Due Date Last Done Comments Hepatitis C screening for ag e 18-79 09/21/1969 RSV vaccine for adults or (1 - Risk 60-74 years 1-dose series) 2011 Depression screening for age 12+ 07/10/2016 07/11/2015 BMI (ht and wt on same day) for age 18+ 07/05/2017 07/05/2016 Lipids for age 45-75 07/13/2018 07/13/2013, 03/10/2010 Colonoscopy through age 75 03/10/2020 03/10/2010 COVID-19 vaccine series ( - 2023- season) 2024 Influenza Vaccine (#1) 2024 4, 12/31/2011 Tetanus booster 02/07/2027 02/07/2017, 12/22/2013, 07/03/2011 Pneumococcal series for age 50+ Completed 09/27/2019, 03/26/2018, 08/09/2009 Zoster (shingles) series for age 50+ Completed 09/12/2021, 09/27/2019, 11/19/2011 Hepatitis B series for 19+ Aged Out N o longer eligible based on patient's age to complete this topic Procedures Procedure Name Priority Date/Time Associated Diagnosis Comments LIPID PANEL Routine 07/13/2013 9:56 AM CDT Routine general medical examination at a health care facility from Last 3 Months or Most Recently Relevant to Health Maintenance Results * LIPID PANEL (07/13/2013 9:56 AM CDT) Pathologist [facility] CHOLESTEROL,TOTAL 198 100 - 199 mg/dL 07/13/2013 8:51 PM CDT [facility] TRIGLYCERIDES 117 <150 mg/dL 07/13/2013 8:51 PM CDT [facility] HDL CHOLESTEROL 55 >40 mg/dL 4 8:51 PM CDT [facility] NON-HDL CHOLESTEROL 143 <145 mg/dl 07/13/2013 8:51 PM CDT [facility] CHOL/HDL RATIO 3.60 <4.50 07/13/2013 8:51 PM CDT [facility] LDL CHOLESTEROL 120 <=130 mg/dL 07/13/2013 8:51 PM CDT [facility] PATIENT STATUS NOT GIVEN 07/13/2013 8:51 PM CDT [facility] Blood specimen (specimen) BLOOD SPECIMEN / Unknown Venipuncture / Unknown 07/13/2013 9:56 AM CDT 07/13/2013 9:56 AM CDT us Odin Whitten MD CHEMISTRY Final Resu lt [facility] [address] [place] [address], [place] from Last 3 Months or Most Recently Relevant to Health Maintenance Insurance [employer] [facility] Advance Directives * Full Code (Latest Code Status on File) Date Activated Date Inactivated Comments 09/14/2012 1:22 AM 09/15/2012 5:58 PM Care Teams Computational Geneticist Relationship Specialty Start Date End Date Pcp, No . PCP - General 03/05/24
--- NOTE | 2024-11-20 16:27 | CRLHL7_ITS ---
For Patients: As a result of the Century Cures Act, medical imaging exams and procedure reports are released immediately into your electronic medical record. You may view this report before your referring provider. If you have questions, please contact your health care provider. INDICATION: Abdominal pain melena TECHNIQUE: CT abdomen and pelvis with 95 mL Isovue 370 intravenous contrast. COMPARISON: None. FINDINGS: Lower chest: Unremarkable. Liver: Normal in size and attenuation. No suspicious masses. Gallbladder and bile ducts: No stones or inflammation. No biliary dilatation. Pancreas: Unremarkable. No mass or inflammation. Spleen: Normal in size. No masses. Adrenal glands: Thickening of both adrenal glands Kidneys: Atrophic right kidney. Cortical scarring of the left kidney GI tract: The bowel is unremarkable no active hemorrhage is seen normal appendix Vasculature: Abdominal aorta is normal in caliber. Dense atherosclerotic vascular calcifications. Lymph nodes: No lymphadenopathy. Peritoneum/Abdominal Wall: Penile reservoir in the anterior left lower pelvis. Prostatectomy. Pelvis: Unremarkable. No pelvic masses. Bones: Bones are demineralized. Degenerative changes present. Impression: No active hemorrhage is seen. No acute findings in the abdomen or pelvis. Please note that all CT scans at this facility use dose modulation, iterative reconstruction, and/or weight-based dosing when appropriate to reduce radiation dose to as low as reasonably achievable. Dictated by Matilda Gutierrez MD @ 11/20/2024 7:24:51 PM (Electronically Signed)
--- NOTE | 2024-11-20 16:29 | CRLHL7_ITS ---
For Patients: As a result of the Century Cures Act, medical imaging exams and procedure reports are released immediately into your electronic medical record. You may view this report before your referring provider. If you have questions, please contact your health care provider. INDICATION: Chest pain TECHNIQUE: Chest 2 view(s) COMPARISON: None. FINDINGS: Cardiomediastinal silhouette and pulmonary vasculature are normal. No focal consolidation. Right lung apex excluded from field of view on AP view. No layering pleural effusion. No pneumothorax. Multilevel degenerative changes of the visualized spine. Healed right rib fracture deformities noted. IMPRESSION: No focal consolidation. Dictated by Jyoti Cruz MD @ 11/20/2024 7:07:44 PM (Electronically Signed)
[2024-11-20] MEDS: METOCLOPRAMIDE HCL 5 MG/ML INJ 10 MG IVP (16:58)
[2024-11-20] MEDS: LACTATED RINGERS 1000 ML 1,000 ML IV (16:58)
[2024-11-20] MEDS: MORPHINE 4 MG/ML INJ IVP ×2 (16:58→20:24)
--- NOTE | 2024-11-20 17:22 | ED.ABDPAIN ---
HPI - Abdominal Pain General Date Seen: 11/20/24 Chief Complaint: Abdominal Pain Stated Complaint: Abdominal pain Time Seen by Provider: 11/20/24 15:44 Source: patient Mode of arrival: ambulatory Limitations: no limitations History of Present Illness HPI narrative: Patient is a 74-year-old male presenting to the emergency department for abdominal pain and diarrhea. He states for the past week he has been having nausea, vomiting and abdominal pain. Has also been having loose stools with occasional watery diarrhea. Has noticed consistent black stools. States 4 days ago after episodes of vomiting he developed some left-sided chest pain. Chest pain has been mild and is left-sided. Denies any history of heart disease. Denies any shortness of breath. Pain in his abdomen seems to start in his epigastric region radiating down through his abdomen. No history of abdominal surgeries. Denies ever having symptoms like this before. States he initially thought it was from eating undercooked chicken. States the pain is horrible currently but he still nauseated despite using Zofran. Has not had any fevers or chills. Denies headache, vision changes, weakness, numbness, dysuria. Does states he is feeling fatigued. Related Data Home Medications ?Medication ?Instructions ?Recorded ?Confirmed atenolol 50 mg tablet 25 mg PO DAILY 06/24/22 08/05/23 cholecalciferol (vitamin D3) 25 25 mcg PO DAILY 06/24/22 08/06/23 mcg (1,000 unit) capsule duloxetine 60 mg capsule,delayed 90 mg PO DAILY 06/24/22 08/05/23 release folic acid 1 mg tablet 1 mg PO HS 06/24/22 08/06/23 olanzapine 2.5 mg tablet 2.5 mg PO QHS 06/24/22 08/05/23 omeprazole 20 mg capsule,delayed 40 mg PO DAILY PRN 06/24/22 08/06/23 release cyanocobalamin (vitamin B-12) 1,000 mcg PO DAILY 08/05/23 08/05/23 1,000 mcg tablet ferrous gluconate 324 mg (38 mg 324 mg PO Q OTHER DAY 08/05/23 08/05/23 iron) tablet pyridoxine (vitamin B6) 50 mg 25 mg PO DAILY 08/05/23 08/05/23 tablet thiamine mononitrate (vit B1) 100 100 mg PO BID 08/05/23 08/06/23 mg tablet Previous Rx's ?Medication ?Instructions ?Recorded amlodipine 5 mg tablet 2.5 mg (1/2 x 5 mg) PO DAILY #30 08/07/23 tabs cephalexin 500 mg capsule 1,000 mg (2 x 500 mg) PO BID #20 08/07/23 caps cephalexin 500 mg capsule 500 mg PO QID #20 caps 11/20/24 famotidine 20 mg tablet (Pepcid) 20 mg PO DAILY #14 tabs 11/20/24 oxycodone 5 mg tablet 5 mg PO Q6H PRN pain #12 tabs 11/20/24 Allergies Allergy/AdvReac Type Severity Reaction Status Date / Time No Known Drug Allergies Allergy Verified 08/05/23 13:05 Review of Systems Status of ROS Reports: 10 or more systems reviewed and unremarkable except as noted in History and below [facility] Medical History Unsteady gait ?R26.81 - Unsteadiness on feet (ICD-10) History of melena ?Z87.19 - Personal history of other diseases of the digestive system (ICD-10) Angiodysplasia of stomach and duodenum ?K31.819 - Angiodysplasia of stomach and duodenum without bleeding (ICD-10) Dysphagia ?R13.10 - Dysphagia, unspecified (ICD-10) Peripheral neuropathy (09/06/11) ?G62.9 - Polyneuropathy, unspecified (ICD-10) Gastroesophageal reflux (09/06/11) ?K21.9 - Gastro-esophageal reflux disease without esophagitis (ICD-10) Depression (09/06/11) ?F32.A - Depression, unspecified (ICD-10) Benign localized hyperplasia of prostate with urinary obstruction (09/06/11) ?N40.1 - Benign prostatic hyperplasia with lower urinary tract symptoms (ICD-10) ?N13.8 - Other obstructive and reflux uropathy (ICD-10) Ankle fracture (09/06/11) ?S82.899A - Other fracture of unspecified lower leg, initial encounter for closed fracture (ICD-10) Alcohol use disorder ?F10.90 - Alcohol use, unspecified, uncomplicated (ICD-10) Prostate cancer ?C61 - Malignant neoplasm of prostate (ICD-10) Cellulitis of penis (~2012) ?N48.22 - Cellulitis of corpus cavernosum and penis (ICD-10) COPD (chronic obstructive pulmonary disease) ?J44.9 - Chronic obstructive pulmonary disease, unspecified (ICD-10) PTSD (post-traumatic stress disorder) ?F43.10 - Post-traumatic stress disorder, unspecified (ICD-10) Low back pain ?M54.50 - Low back pain, unspecified (ICD-10) Adrenal adenoma ?D35.00 - Benign neoplasm of unspecified adrenal gland (ICD-10) Major depression ?F32.9 - Major depressive disorder, single episode, unspecified (ICD-10) Neuropathy ?G62.9 - Polyneuropathy, unspecified (ICD-10) Surgical History Hx of tonsillectomy ?Z90.89 - Acquired absence of other organs (ICD-10) Status post osteotomy (~1979) ?Z98.890 - Other specified postprocedural states (ICD-10) Hx of colonoscopy (~2010) ?Z98.890 - Other specified postprocedural states (ICD-10) History of ankle surgery (~09/04/11) ?Z98.890 - Other specified postprocedural states (ICD-10) H/O radical prostatectomy ?Z90.79 - Acquired absence of other genital organ(s) (ICD-10) Family History Brother Alcoholism and drug addiction in family Mother Alcoholism and drug addiction in family Throat cancer Sister Obesity Social History Narrative: Lives with younger sister, Elin, in a house. Smokes half a pack of cigarettes per day. Drinks 5-6 twelve-ounce beers per day. Last drank alcohol yesterday. Smokes marijuana 2-3 times a day. Does meth and cocaine every 2-3 months, is adamant that he last did it a week ago and that he does not use opioids. Discussed code status: patient and his sisters agree that he does not want to be intubated, does want resuscitation. What is your current living situation?: I presently have a place to live Problems where you live: no known problems Problems where you live details: na In the past 12 months, utilities in danger of being shut off: no In past 12 months, lack of transportation kept you from medical appts, meetings, work, or getting things needed for daily living: no In the past 12 mos, have been you worried that your food would run out before you had money to buy more?: never true In the past 12 mos, the food you bought just didn't last and you didn't have money to buy more?: never true Highest level of school completed/degree received: high school graduate Smoking Status: Current every day smoker What tobacco products do you use: cigarettes Do you use any of these nicotine containing products: None Second hand tobacco smoke exposure: No How often do you have a drink containing alcohol: 4 or more times a week How many standard drinks containing alcohol do you have on a typical day: 3 or 4 How often do you have six or more drinks on one occasion: Daily or almost daily AUDIT-C Alcohol total score: 9 Non-prescribed substance use: marijuana (any form) Non-prescribed substance use details: daily Caffeine: No How often does anyone, including family, friends and others, physically hurt you: never How often does anyone, including family, friends and others, insult or talk down to you: never How often does anyone, including family, friends and others, threaten you with harm: never How often does anyone, including family, friends and others, scream or curse at you: never service: Yes Exam Narrative: Exam Narrative: Const: Well-nourished, Well-developed, in mild distress Eyes: PERRL, no conjunctival injection, and symmetrical lids HENT: Atraumatic external nose and ears. Moist mucous membranes. Neck: Symmetric, trachea midline, No thyromegaly. CVS: RRR, No murmurs or gallops. Peripheral pulses 2+ and equal in all extremities RESP: Unlabored respiratory effort. Clear to auscultation bilaterally. GI: Diffuse abdominal tenderness, Nondistended, No rebound or guarding. MSK:Extremities w/o deformity, Normal Active ROM, left chest tenderness reproduces pain exactly Skin: Warm, Dry. No rashes or lesions. Neuro: Normal Muscle tone, No focal neurological deficits. Psych: Awake, Alert, & Oriented x3. Appropriate mood and affect. Const: Vital Signs, click to edit/add: Vital Signs - 24 hr 11/20/24 15:35 11/20/24 15:41 11/20/24 15:42 Temperature 98.3 F Pulse Rate 76 74 Pulse Rate [Pulse Oximeter] 73 Respiratory Rate 20 Blood Pressure 210/91 H Blood Pressure [Le ft Upper Arm] 210/91 H Blood Pressure [Ri ght Upper Arm] 202/91 H Pulse Oximetry 100 100 [facility] 11/20/24 15:45 11/20/24 16:00 11/20/24 16:02 Temperature Pulse Rate 75 71 71 Pulse Rate [Pulse Oximeter] Respiratory Rate Blood Pressure 202/89 H Blood Pressure [Le ft Upper Arm] Blood Pressure [Ri ght Upper Arm] Pulse Oximetry 100 96 96 [facility] 11/20/24 16:15 11/20/24 16:30 11/20/24 16:32 Temperature Pulse Rate 83 80 87 Pulse Rate [Pulse Oximeter] Respiratory Rate Blood Pressure 188/85 H Blood Pressure [Le ft Upper Arm] Blood Pressure [Ri ght Upper Arm] Pulse Oximetry 93 92 93 Oxygen Delivery Mn thod 11/20/24 16:45 11/20/24 17:00 11/20/24 17:02 Temperature Pulse Rate 80 79 81 Pulse Rate [Pulse Oximeter] Respiratory Rate 13 12 11 L Blood Pressure 160/83 H Blood Pressure [Le ft Upper Arm] Blood Pressure [Ri ght Upper Arm] Pulse Oximetry 98 95 98 [facility] 11/20/24 17:03 11/20/24 17:15 11/20/24 17:30 Temperature Pulse Rate 75 70 76 Pulse Rate [Pulse Oximeter] Respiratory Rate 17 4 L 8 L Blood Pressure Blood Pressure [Le ft Upper Arm] Blood Pressure [Ri ght Upper Arm] Pulse Oximetry 97 99 97 Oxygen Delivery Mn thod 11/20/24 17:32 11/20/24 17:45 11/20/24 18:00 Temperature Pulse Rate 73 83 85 Pulse Rate [Pulse Oximeter] Respiratory Rate 11 L 10 L 6 L Blood Pressure 218/99 H Blood Pressure [Le ft Upper Arm] Blood Pressure [Ri ght Upper Arm] Pulse Oximetry 99 97 97 [facility] 11/20/24 18:02 09/13/25 18:15 Temperature Pulse Rate 91 89 Pulse Rate [Pulse Oximeter] Respiratory Rate 8 L 16 Blood Pressure 186/101 H Blood Pressure [Le ft Upper Arm] Blood Pressure [Ri ght Upper Arm] Pulse Oximetry 95 94 Oxygen Delivery Me thod Course Vital Signs Vital signs: Initial Vital Signs Temperature 98.3 F 11/20/24 15:35 Temperature Source Temporal Artery Scan 11/20/24 15:35 Pulse Rate 73 11/20/24 15:35 Respiratory Rate 20 11/20/24 15:35 Blood Pressure 202/91 H 11/20/24 15:35 Blood Pressure Mean 128 H 11/20/24 15:35 Blood Pressure Position Supine 11/20/24 15:35 Pulse Oximetry 100 11/20/24 15:35 Oxygen Delivery Method Room Air 11/20/24 15:35 Vital Signs Temperature 98.3 F 11/20/24 15:35 Pulse Rate 73 11/20/24 15:35 Respiratory Rate 20 11/20/24 15:35 Blood Pressure 202/91 H 11/20/24 15:35 Pulse Oximetry 100 11/20/24 15:35 Oxygen Delivery Method Room Air 11/20/24 15:35 Temperature 98.3 F 11/20/24 15:35 Pulse Rate 89 11/20/24 18:15 Respiratory Rate 16 11/20/24 18:15 Blood Pressure 186/101 H 11/20/24 18:02 Pulse Oximetry 94 11/20/24 18:15 Oxygen Delivery Method Room Air 11/20/24 17:32 Medications Administered Medications: Discontinued Medications Generic Name Dose Route Start Last Admin Trade Name Alberto PRN Reason Stop Dose Admin Famotidine 20 mg 11/20/24 20:16 11/20/24 20:24 Famotidine 20 Mg Tablet PO 11/20/24 20:17 20 mg ONCE ONE Administration Famotidine 20 mg 11/20/24 20:21 11/20/24 20:23 Famotidine 20 Mg Tablet PO 11/20/24 20:22 Not Given ONCE ONE Lactated Ringer's 1,000 mls @ 1,000 mls/hr 11/20/24 16:28 11/20/24 18:01 Lactated Ringers 1000 Ml IV 11/20/24 17:27 Infused .Q1H ONE Infusion Ceftriaxone Sodium 1 gm/ 100 mls @ 200 mls/hr 11/20/24 19:41 11/20/24 20:31 Sodium Chloride IVPB 11/20/24 19:42 Infused ONCE ONE Infusion Magnesium Oxide 400 mg 11/20/24 18:06 11/20/24 20:16 Magnesium Oxide 400 Mg Tablet PO 11/20/24 18:07 400 mg ONCE ONE Administration Metoclopramide HCl 10 mg 11/20/24 16:28 11/20/24 16:58 Metoclopramide Hcl 5 Mg/Ml Inj IVP 11/20/24 16:29 10 mg ONCE ONE Administration Morphine Sulfate 4 mg 11/20/24 16:28 11/20/24 16:58 Morphine 4 Mg/Ml Inj IVP 11/20/24 16:29 4 mg ONCE ONE Administration Morphine Sulfate 4 mg 11/20/24 20:15 11/20/24 20:24 Morphine 4 Mg/Ml Inj IVP 11/20/24 20:16 4 mg ONCE ONE Administration Potassium Chloride 40 meq 11/20/24 18:05 11/20/24 19:33 Potassium Chloride 10 Meq Capsule Er PO 11/20/24 18:06 40 meq ONCE ONE Administration MDM - Abdominal Pain MDM Narrative Medical decision making narrative: Patient is a 74-year-old male presenting to the emergency department for abdominal pain. Differential at this time includes gastroenteritis, peptic ulcer disease, gallbladder/liver disease, appendicitis, diverticulitis. Is a rather large workup is he is having diffuse pain. Is also having melena. No peritoneal signs. He is also developing chest pain. The differential diagnosis of chest pain is broad and includes common etiologies such as musculoskeletal strain, GERD, pneumonia, etc. More serious etiologies considered include PE, coronary artery disease, pneumothorax, aortic dissection, aortic aneurysm. Considering the chest pain began after the vomiting there is also some concern for pneumomediastinum. No crepitus heard though. Chest pain very well could be musculoskeletal from the vomiting. Wells score is 0. He appears overall stable and in her dissection and aortic aneurysm seem unlikely. Will do an EKG and troponin to look for signs of cardiac abnormalities. Chest ray ordered to look for signs of pneumothorax, pneumomediastinum, pneumonia. Also order CBC, CMP, magnesium, urinalysis, viral swabs. Morphine given for pain and Reglan for nausea. Lab work shows a urinary tract infection otherwise shows no acute concerning abnormalities. Troponin within normal limits. EKG shows no concerning findings. I do not believe repeat troponin is necessary considering all lung symptoms have been going on for. Will give him a dose of Rocephin for his UTI. Viral swabs are negative. Chest x-ray returned showing no acute concerning abnormalities. CTA scan of the abdomen was done to look for source of GI bleed. No abnormalities were seen. His potassium and magnesium was slightly low and were replenished. He was still having some pain and I dose of morphine was given. On re-evaluation most his pain seems to be is suprapubic region which is consistent with this UTI. All his chest pain is reproducible with palpation this is most likely musculoskeletal Specialty due to it starting after his vomiting a few days ago. He does have blood in his stool but his hemoglobin is actually higher compared to his baseline while he has been hypertensive with no signs of tachycardia. Due to this I do believe he is safe for discharge. Patient is complaining about reflux currently and Will give him Pepcid. Will discharge him with Pepcid, Keflex, oxycodone for pain control. He is agreeable to this plan. States he has Zofran at home. Lab Data Labs: Lab Results 11/20/24 11/20/24 11/20/24 Range/Units 16:45 17:14 17:43 WBC 7.72 (4.50-11.00) K/uL RBC 3.81 L (4.30-5.90) m/uL Hgb 12.0 L (13.5-17.5) gm/dL Hct 36.8 L (37.0-53.0) % MCV 97 (80-100) fL MCH 32 (26-34) pg MCHC 33 (32-36) gm/dL RDW Coeff of Nancy 13.8 (11.5-15.5) % Plt Count 239 (140-440) K/uL Neut % (Auto) 68.8 (42.0-72.0) % Lymph % (Auto) 21.8 (20-44) % Coleman % (Auto) 7.8 (0.0-11.0) % Eos % (Auto) 1.0 (0.0-7.0) % Baso % (Auto) 0.5 (0.0-3.0) % Neut # (Auto) 5.31 (1.7-7.0) K/uL Lymph # (Auto) 1.68 (0.90-2.90) K/uL Coleman # (Auto) 0.60 (0.00-0.90) K/UL Eos # (Auto) 0.08 (0.00-0.50) K/uL Baso # (Auto) 0.04 (0.00-0.30) K/uL Abs Immat Gran (auto) 0.01 (0.00-0.30) K/uL Imm/Tot Granulo (auto) 0.1 % Sodium 135 (135-149) mmol/L Potassium 3.0 L (3.6-5.1) mmol/L Chloride 102 (96-114) mmol/L Carbon Dioxide 30 (20-32) mmol/L Anion Gap 3 L (7-15) mEq/L BUN 16 (7-30) mg/dL Creatinine 1.5 (0.5-1.5) mg/dL Estimated Creat Clear 37.99 Estimated GFR 49 ml/min Glucose 95 (60-115) mg/dL Calcium 8.2 L (8.4-10.6) mg/dL Magnesium 1.3 L (1.5-2.6) mg/dL Total Bilirubin 0.5 (0.1-1.5) mg/dL AST 24 (12-35) U/L ALT 9 (4-50) U/L Alkaline Phosphatase 84 (40-150) U/L Troponin I 0.02 (0.01-0.04) ng/mL Total Protein 6.2 (6.0-8.3) g/dL Albumin 3.2 L (3.3-5.0) g/dL Urine Color Yellow (Yellow) Urine Appearance Slightly Cloudy A (Clear) Urine pH 7.0 (5.0-8.5) Ur Specific [place] 1.015 (1.000-1.030) Urine Protein 1+ A (Negative) Urine Glucose (UA) Negative (Negative) Urine Ketones Negative (Negative) Urine Blood Trace-intact A (Negative) Urine Nitrite Positive A (Negative) Urine Bilirubin Negative (Negative) Urine Urobilinogen 0.2 (0.2-1.0) Ur Leukocyte Esterase Trace A (Negative) Urine RBC 0-2 (0-2) Urine WBC 5-10 A (0-5) Ur Squamous Epith Cells None (None-Few) Urine Bacteria Many A (None) Stool Occult Blood (Negative) SARS-CoV-2 (PCR) Negative SARS-CoV-2 (Negative) Influenza Type A (PCR) Negative PCR FLU A (Negative) Influenza Type B (PCR) Negative PCR FLU B (Negative) RSV (PCR) Negative PCR RSV (Negative) 11/20/24 Range/Units 19:39 WBC (4.50-11.00) K/uL RBC (4.30-5.90) m/uL Hgb (13.5-17.5) gm/dL Hct (37.0-53.0) % MCV (80-100) fL MCH (26-34) pg MCHC (32-36) gm/dL RDW Coeff of Nancy (11.5-15.5) % Plt Count (140-440) K/uL Neut % (Auto) (42.0-72.0) % Lymph % (Auto) (20-44) % Coleman % (Auto) (0.0-11.0) % Eos % (Auto) (0.0-7.0) % Baso % (Auto) (0.0-3.0) % Neut # (Auto) (1.7-7.0) K/uL Lymph # (Auto) (0.90-2.90) K/uL Coleman # (Auto) (0.00-0.90) K/UL Eos # (Auto) (0.00-0.50) K/uL Baso # (Auto) (0.00-0.30) K/uL Abs Immat Gran (auto) (0.00-0.30) K/uL Imm/Tot Granulo (auto) % Sodium (135-149) mmol/L Potassium (3.6-5.1) mmol/L Chloride (96-114) mmol/L Carbon Dioxide (20-32) mmol/L Anion Gap (7-15) mEq/L BUN (7-30) mg/dL Creatinine (0.5-1.5) mg/dL Estimated Creat Clear Estimated GFR ml/min Glucose (60-115) mg/dL Calcium (8.4-10.6) mg/dL Magnesium (1.5-2.6) mg/dL Total Bilirubin (0.1-1.5) mg/dL AST (12-35) U/L ALT (4-50) U/L Alkaline Phosphatase (40-150) U/L Troponin I (0.01-0.04) ng/mL Total Protein (6.0-8.3) g/dL Albumin (3.3-5.0) g/dL Urine Color (Yellow) Urine Appearance (Clear) Urine pH (5.0-8.5) Ur Specific [place] (1.000-1.030) Urine Protein (Negative) Urine Glucose (UA) (Negative) Urine Ketones (Negative) Urine Blood (Negative) Urine Nitrite (Negative) Urine Bilirubin (Negative) Urine Urobilinogen (0.2-1.0) Ur Leukocyte Esterase (Negative) Urine RBC (0-2) Urine WBC (0-5) Ur Squamous Epith Cells (None-Few) Urine Bacteria (None) Stool Occult Blood Positive (Negative) SARS-CoV-2 (PCR) (Negative) Influenza Type A (PCR) (Negative) Influenza Type B (PCR) (Negative) RSV (PCR) (Negative) Imaging Data CT scan abdomen pelvis: Attestation: I have reviewed the pertinent imaging results. Radiologist's impression: No active hemorrhage is seen. No acute findings in the abdomen or pelvis. Please note that all CT scans at this facility use dose modulation, iterative reconstruction, and/or weight-based dosing when appropriate to reduce radiation dose to as low as reasonably achievable. Dictated by Matilda uGtierrez MD @ 11/20/2024 7:24:51 PM Chest x-ray: Radiologist's impression: No focal consolidation. Dictated by Jyoti Cruz MD @ 11/20/2024 7:07:44 PM ECG Data Attestation: I personally reviewed and interpreted this ECG as follows: Prior ECG tracings: not available for review Interpretation: Normal sinus rhythm with a rate of 68 beats per minute, normal intervals, normal axis, no ST or T-wave abnormalities. Appears similar to previous EKGs on file. Discharge Plan Discharge Clinical Impression: Urinary tract infection Qualifiers: Urinary tract infection type: acute cystitis Hematuria presence: without hematuria Qualified Code(s): N30.00 - Acute cystitis without hematuria Patient Disposition: Home, Self-Care Condition: Stable Instructions: Urinary Tract Infection in Men (ED) Additional Instructions: I believe your abdominal pain is related to your urinary tract infection. I will prescribe you some oxycodone for pain control and Keflex for your UTI. Will also prescribe you some Pepcid for your occurred. You will not be able to get further narcotics from this emergency department for this complaint. Prescriptions: New cephalexin 500 mg capsule 500 mg PO QID Qty: 20 0RF oxycodone 5 mg tablet 5 mg PO Q6H PRN (Reason: pain) Qty: 12 0RF famotidine [Pepcid] 20 mg tablet 20 mg PO DAILY Qty: 14 1RF No Action duloxetine 60 mg capsule,delayed release(DR/EC) 90 mg PO DAILY folic acid 1 mg tablet 1 mg PO HS atenolol 50 mg tablet 25 mg PO DAILY omeprazole 20 mg capsule,delayed release(DR/EC) 40 mg PO DAILY PRN cholecalciferol (vitamin D3) 25 mcg (1,000 unit) capsule 25 mcg PO DAILY olanzapine 2.5 mg tablet 2.5 mg PO QHS cyanocobalamin (vitamin B-12) 1,000 mcg tablet 1,000 mcg PO DAILY pyridoxine (vitamin B6) 50 mg tablet 25 mg PO DAILY thiamine mononitrate (vit B1) 100 mg tablet 100 mg PO BID ferrous gluconate 324 mg (38 mg iron) tablet 324 mg PO Q OTHER DAY amlodipine 5 mg Tablet 2.5 mg PO DAILY Qty: 30 0RF cephalexin 500 mg capsule 1,000 mg PO BID Qty: 20 0RF Follow Up/Referrals: Provider,Not a Local [Primary Care Provider, Family Practice] Stand Alone Forms: [facility] Info Inst[facility]
[2024-11-20 17:29] LABS: PCR FLU A Negative PCR FLU A (Negative); PCR FLU B Negative PCR FLU B (Negative); PCR RSV Negative PCR RSV (Negative); SARS PCR* Negative SARS-CoV-2 (Negative)
[2024-11-20 17:45] LABS: Albumin* 3.2 g/dL (3.3-5.0); Chloride* 102 mmol/L (96-114)
[2024-11-20 17:46] LABS: Potassium* 3.0 mmol/L (3.6-5.1); Sodium* 135 mmol/L (135-149)
[2024-11-20 17:48] LABS: Alanine Aminotransferase* 9 U/L (4-50); Alkaline Phosphatase* 84 U/L (40-150); Anion Gap 3 mEq/L (7-15); Aspartate Amino Transferase* 24 U/L (12-35); Bilirubin Total* 0.5 mg/dL (0.1-1.5); Blood Urea Nitrogen* 16 mg/dL (7-30); Carbon Dioxide* 30 mmol/L (20-32); Creatinine* 1.5 mg/dL (0.5-1.5); Est. Creatinine Clearance* 37.99; Estimated Glomerular Filt Rate 49 ml/min; Total Protein* 6.2 g/dL (6.0-8.3)
[2024-11-20 17:49] LABS: Calcium* 8.2 mg/dL (8.4-10.6); Glucose* 95 mg/dL (60-115); Hematocrit* 36.8 % (37.0-53.0); Hemoglobin* 12.0 gm/dL (13.5-17.5); Immature Granulocytes Abs Auto 0.01 K/uL (0.00-0.30); Immature Granulocytes Pct Auto 0.1 %; Lymphocytes Absolute Auto 1.68 K/uL (0.90-2.90); Mean Corpuscular HGB Conc 33 gm/dL (32-36); Mean Corpuscular Hemoglobin 32 pg (26-34); Mean Corpuscular Volume 97 fL (80-100); RDW Coefficient of Variation % 13.8 % (11.5-15.5); Red Blood Count* 3.81 m/uL (4.30-5.90); White Blood Count* 7.72 K/uL (4.50-11.00)
[2024-11-20 17:51] LABS: Appearance Urine Slightly Cloudy (Clear)
[2024-11-20 17:54] LABS: Slide Review Reflex No
[2024-11-20] MEDS: POTASSIUM CHLORIDE 10 MEQ CAPSULE ER 40 MEQ PO (19:33)
[2024-11-20] MEDS: cefTRIAXone 1 GM in 0.9 % SODIUM CHLORIDE Mini-bag 100 ML IVPB (19:55)
[2024-11-20 19:58] LABS: Fecal Occult Blood* Positive (Negative)
[2024-11-20] MEDS: MAGNESIUM OXIDE 400 MG TABLET PO (20:16)
[2024-11-20] MEDS: FAMOTIDINE 20 MG TABLET PO (20:24)
== END 2024-11-20 21:07 | disposition home or self-care (01) ==
PROVIDERS: Emergency Provider Student in an Organized Health Care Education/Training Program
DX: N39.0 Urinary tract infection, site not specified (principal)
CPT/HCPCS: 36415; 71046; 74174; 80053; 81001; 82270; 83735; 84484; 85025; 87086; 87177; 87209; 87493; 87631; 93005; 96365; 96375; 99284; 99285; A9270; J0696; J2270; J2765; J7120; Q9967

== ENCOUNTER 2024-12-08 18:43 | Outpatient (CLI) | payer OTHER, SELFPAY | END 2024-12-08 18:44 | disposition home or self-care (01) | LOC: AMB 12-14 13:24 | PROVIDERS: Visit Provider Family Medicine | DX: T78.49XA Other allergy, initial encounter (principal) | CPT/HCPCS: A0425; A0427 ==

== ENCOUNTER 2024-12-08 19:11 | Emergency (ER) | payer OTHER, SELFPAY ==
--- OUTSIDE RECORDS SUMMARY | 2021-03-12 23:30 | XMS_ITS | Continuity of Care Document ---
Author Organization [facility] Address [address] [address] [place] [address] Phone Care Team Providers Care Mechanical Engineer Name Role Phone No Information Unavailable Unavailable Allergies, Adverse Reactions, Alerts Substance Reaction Status Criticality No Known Allergies Active No Inform ation Medications Medication Instructions Dosage Effective Dates (start - stop) Status Comments Aldactone 50 mg tablet take 1 tablet by oral route every day 50 MG - Active 90 day supply Lasix 20 mg tablet take 1 tablet by oral route every day 20 MG - Active 90 day supply METFORMIN HCL (unknown strength) take 1 tablet by oral route every day Not Available - Active ZOLOFT (unknown strength) take 1 tablet by oral route every day Not Available - Active Procedures Procedure Date Routine Serum Collection Offic/outpt E&m Estab Mod-hi 2 21 Offic/outpt E&m Estab Mod-hi 2 19 Ugi Endo; W/bx /mx Ugi Endo; W/band Lig Varices Colonoscopy Flex; W/bx /mx Colonoscopy Flex; W/remov Les- 19 Init Hosp-da E&m Mod Severity 9 Advance Directives Directive Yes / No Effective Date File Name No Information Encounters Encounter Description Practice Location Reason(s) For Visit Diagnoses Date Provider Providers Copied on Encounter [facility], [address] [address], [place], [id number], [place] tel:[phone] No Information 2 No Information [facility], [address] [address], [place], [id number], [place] tel:[phone] [facility] No Information 1 Leonard Rice. [address] [facility], [place] [address], [place], [place], [id number], [place]. tel:[phone] [facility], [address] [address], [place], [id number], [place] tel:[phone] [facility] Other ascites 1 Leonard Rice. [address] [place] [address], [place], [id number], [place]. tel:[phone] [facility], [address] [address], [place], [id number], [place] tel:[phone] [facility] Other ascites 1 Leonard Rice. [address] [facility], [facility] [address], [place], [place], [id number], [place]. tel:[phone] [facility], [address] [address], [place], [id number], [place] tel:[phone] [facility] Fatty (change of) liver, not elsewhere classified 1 Leonard Rice. [address] [address], [place], [place], [address], [place]. tel:[phone] Referring Provider: Referral Self, USE FOR SELF REFERRALS. [facility], [address] [address], [place], [id number], [place] tel:[phone] No Information 1 No Information Offic/outpt E&m Estab Mod-hi 2 [facility], [address] [address], [place], [id number], [place] tel:[phone] [facility] GI Symptoms or Concerns (chief complaint) Non-alcoholic fatty liver diseaseOther cirrhosis of liverOther ascitesEsophagea l varices without bleeding, unspecified esophageal varices type 1 Leonard Rice. [address] [facility], [facility] [address], [place], [place], [id number], [place]. tel:[phone] Referring Provider: Referral Self, USE FOR SELF REFERRALS. Offic/outpt E&m Estab Mod-hi 2 [facility], [address] [address], [place], [place], [id number], [place] tel:[phone] [facility] GI Symptoms or Concerns (chief complaint) Other cirrhosis of liverNon-alcohol ic fatty liver diseaseDietary counseling and surveillanceElev ated blood-pressure reading, w/o diagnosis of htn Apr-0 2-201 9 No Information Referring Provider: Referral Self, USE FOR SELF REFERRALS. [facility], [address] [address], [place], [place], [id number], [place] tel:[phone] [facility] No Information Mar-0 6-201 9 No Information Referring Provider: Hayley Gordon MD, [address] [place] [address], [place], [address]. tel:[phone] Init Hosp-da E&m Mod Severity [facility], [address] [address], [place], [place], [id number], [place] tel:[phone] [facility] No Information Mar-0 5201 9 Mark Rice. [address] [facility], [facility] [address], [place], [place], [id number], [place]. tel:[phone] Referring Provider: Hayley Gordon MD, [address] [place] [address], [place], [address]. tel:[phone] Family History Family Member Type Diagnosis Age At Onset Mother Problem (finding) Cancer, brain Immunizations Vaccine Date Status Comments tetanus toxoid, reduced diphtheria toxoid, and acellular pertussis vaccine, adsorbed administered Note: [employer] b i-directional interface ; Source: Other Registry Influenza, seasonal, injectable administe red Note: [employer] bi- directional interface ; Source: Other Registry Influenza, seasonal, injectable administe red Note: [facility] bi- directional interface ; Source: Other Registry Pneumovax administered Note: [employer] bi-d irectional interface ; Source: Other Registry Influenza, seasonal, injecta ble, preservative free administered Note: [employer] bi-direct ional interface ; Source: Other Registry Payers Payer name Insurance type Covered republican ID Authoriza tion(s) No Information Social History Type Description Quantity Date Captured Comments Sex Male Smoking Status No Information Chief Complaint And Reason For Visit No Information Reason For Referral Reason For Referral No Information Plan Of Treatment Date Type Action Status Goal Lifestyle education regardin g diet completed Referral Ordered: Paracentesis Abdominal With Ultrasound Guidance Appointment date/timeframe: First Available ordered Referral Ordered: BMP Appointment date/timeframe: 10/18/2020 ordered Referral Ordered: AFP, Serum, Tumor Marker Appointment date/timeframe: 10/18/2020 ordered Referral Ordered: PT/INR Appointment date/timeframe: 10/18/2020 ordered Referral Ordered: EGD Appointment date/timeframe: 10/18/2020 ordered History Of Present Illness Encounter Date Complaint History Of Prese nt Illness GI Symptoms or Concerns Robbie prince is a 70-year-old male with a history of nonalcoholic cirrhosis, non-STEMI NE, COPD, type 2 diabetes, coronary artery disease, depressive disorder, dyslipidemia, essential hypertension, gastroesophageal reflux disease, obesity who presented to the hospital 10/10/2020 for symptoms of abdominal pain and vomiting.Upon presentation, he had reported right-sided abdominal pain with associated cough, shortness of breath and nausea that had been present for about a month. He had a 2-week history of inability to keep food or liquid down upon presentation to the hospital and reports of diarrhea The pain in his abdomen was intense and became intolerable, so he presented to the ER.Upon presentation, he was noted to have moderate distention and an ultrasound revealed new ascites. He was afebrile and WBC normal, but given the new ascites and new pain, SBP was ruled out. He was sent to IR for diagnostic and therapeutic paracentesis, 1.8 liters of fluid were removed. Th GI Symptoms or Concerns This pat ient comes to clinic for further discussion of a new diagnosis of cirrhosis during a recent hospital admission.The patient was having several weeks to several months of abdominal pain and diarrhea. He had evaluation with his primary clinic. Stool studies and lab work apparently unremarkable. He stopped his chronic medication to see if there is any benefit. His symptoms continued. He finally sought emergent care at the hospital. Imaging evaluating his symptoms included a CT scan. Cirrhotic-appearing liver was seen. There was also comment of hepatic steatosis. Hepatitis serologies were unremarkable. His liver tests included ALT 19, AST 15, alkaline phosphatase 126, total bilirubin 1.6, direct bilirubin 0.6, and albumin 4.0. His platelet count is 99,000. The patient had endoscopy. This found varices that were banded. He states that since the procedure, he has had difficulty with dysphagia to both solids and liquids. There has not been any improvement in these symptom Functional Status Date Functional Assessmen t No Information Instructions Date Instruction Additional Infor alejandro start lasix 20 mg da aishwarya start aldactone 50 mg daily EGD for evaluation of blood vessels in your esophagus2 gm sodium diet check for liver tumors every 6 months with ultrasound and AFP blood tumor markerColonoscopy would be May of 2021. Related to Non-alcoholic fatty liver disease Sodium Controlled Diet - 2 grams Related to Non-alcoholic fatty liver disease 1. Weight loss and l ow carb diet. 3-4 meals per day. Limit carbs to 30 grams per meal. Include 15-20 grams of protein with each meal. 2. Stop the soda. Trial of Zevia energy drink for caffeince3. Trial of [employer] bread4. Use acid blocking pill. If swallowing problems continue, call in one week5. Office visit in two months Related to Non-alcoholic fatty liver disease Lifestyle education regarding di et Related to Dietary counseling and surveillance Assessments Type Assessment Date No Information Patient Care Teams Name Effective Dates (start - stop) Status Members No Information
--- OUTSIDE RECORDS SUMMARY | 2021-03-12 23:30 | XMS_ITS | Continuity of Care Document ---
Author Organization [facility] Address [address] [address] [place] [address] Phone Care Team Providers Care Navy Seal Name Role Phone No Information Unavailable Unavailable [...] Encounter [facility], [address] [address], [place], [id number], [place] tel:[phone] No Information 2 No Information [facility], [address] [address], [place], [id number], [place] tel:[phone] [facility] No Information 1 Leonard Rice. [address] [facility], [place] [address], [place], [place], [id number], [place]. tel:[phone] [facility], [address] [address], [place], [id number], [place] tel:[phone] [facility] Other ascites 1 Leonard Rice. [address] [place] [address], [place], [id number], [place]. tel:[phone] [facility], [address] [address], [place], [id number], [place] tel:[phone] [facility] Other ascites 1 Leonard Rice. [address] [facility], [facility] [address], [place], [place], [id number], [place]. tel:[phone] [facility], [address] [address], [place], [id number], [place] tel:[phone] [facility] Fatty (change of) liver, not elsewhere classified 1 Leonard Rice. [address] [address], [place], [place], [address], [place]. tel:[phone] Referring Provider: Referral Self, USE FOR SELF REFERRALS. [facility], [address] [address], [place], [id number], [place] tel:[phone] No Information 1 No Information Offic/outpt E&m Estab Mod-hi 2 [facility], [address] [address], [place], [id number], [place] tel:[phone] [facility] GI Symptoms or Concerns (chief complaint) Non-alcoholic fatty liver diseaseOther cirrhosis of liverOther ascitesEsophagea l varices without bleeding, unspecified esophageal varices type 1 Leonard Rice. [address] [facility], [facility] [address], [place], [place], [id number], [place]. tel:[phone] Referring Provider: Referral Self, USE FOR SELF REFERRALS. Offic/outpt E&m Estab Mod-hi 2 [facility], [address] [address], [place], [place], [id number], [place] tel:[phone] [facility] GI Symptoms or Concerns (chief complaint) Other cirrhosis of liverNon-alcohol ic fatty liver diseaseDietary counseling and surveillanceElev ated blood-pressure reading, w/o diagnosis of htn Apr-0 2-201 9 No Information Referring Provider: Referral Self, USE FOR SELF REFERRALS. [facility], [address] [address], [place], [place], [id number], [place] tel:[phone] [facility] No Information Mar-0 6-201 9 No Information Referring Provider: Hayley Gordon MD, [address] [place] [address], [place], [address]. tel:[phone] Init Hosp-da E&m Mod Severity [facility], [address] [address], [place], [place], [id number], [place] tel:[phone] [facility] No Information Mar-0 5201 9 Mark Rice. [address] [facility], [facility] [address], [place], [place], [id number], [place]. tel:[phone] Referring Provider: Hayley Gordon MD, [address] [place] [address], [place], [address]. tel:[phone] Family History Family Member Type Diagnosis Age [...] ; Source: Other Registry Pneumovax administered Note: [employer] bi-d irectional interface ; Source: Other Registry Influenza, seasonal, injecta ble, preservative free administered Note: [employer] bi-direct ional interface ; Source: Other Registry [...] with a history of nonalcoholic cirrhosis, non-STEMI AL, COPD, type 2 diabetes, coronary artery disease, [...]
--- OUTSIDE RECORDS SUMMARY | 2024-12-08 19:13 | XMS_ITS | Clinical Summary ---
Author Organization [facility] Address [address] [place] [address] Care Team Providers Care Academic Advisor Name Role Phone Pcp, No Primary Care [...] H/O radical prostatectomy 09/13/2012 Overview (09/13/2012): 09/01/2012 [facility] Adrenal adenoma 09/03/2011 Low back pain 09/03/2011 Overview (09/14/2012): Takes Ibuprofen as needed Neuropathy 09/03/2011 Overview (09/14/2012): Uses gabapentin (1600mg four times daily) outpatient. Depression, major Overview (09/14/2012): On Effexor outpatient H/O prostate cancer Overview (05/15/2014): managed through [facility] Resolved Problems Problem Noted Date Diagnosed Date Resolved Date Cellulitis of Penis and Scotum 09/14/2012 09/15/2012 Prostate cancer 08/19/2012 05/15/2014 Overview (08/19/2012): Treatment through [place] Tobacco abuse 09/03/2011 09/14/2012 Immunizations Immunization Administration [...] on file Legal Sex Male 5:18 AM [employer] Gender Identity Not on file Sexual Orientation [...] LIPID PANEL (07/13/2013 9:56 AM CDT) Pathologist [facility] CHOLESTEROL,TOTAL 198 100 - 199 mg/dL 07/13/2013 8:51 PM CDT [facility] TRIGLYCERIDES 117 <150 mg/dL 07/13/2013 8:51 PM CDT [facility] HDL CHOLESTEROL 55 >40 mg/dL 4 8:51 PM CDT [facility] NON-HDL CHOLESTEROL 143 <145 mg/dl 07/13/2013 8:51 PM CDT [facility] CHOL/HDL RATIO 3.60 <4.50 07/13/2013 8:51 PM CDT [facility] LDL CHOLESTEROL 120 <=130 mg/dL 07/13/2013 8:51 PM CDT [facility] PATIENT STATUS NOT GIVEN 07/13/2013 8:51 PM CDT [facility] Blood specimen (specimen) BLOOD SPECIMEN / Unknown Venipuncture / Unknown 07/13/2013 9:56 AM CDT 07/13/2013 9:56 AM CDT us Odin Whitten MD CHEMISTRY Final Resu lt [facility] [address] [place] [address], [place] from Last 3 Months or Most Recently Relevant to Health Maintenance Insurance [facility] Advance Directives * Full Code (Latest Code Status on File) Date Activated Date Inactivated Comments 09/14/2012 1:22 AM 09/15/2012 5:58 PM Care Teams Academic Advisor Relationship Specialty Start Date End Date Pcp, No . PCP - General 03/05/24
[2024-12-08 19:20] VITALS: BP 119/63; PULSE 54; RESP 16; TEMP 36.5; O2SAT 97; BMI 19.7
--- NOTE | 2024-12-08 19:35 | CRLHL7_ITS ---
For Patients: As a result of the Cures Act, medical imaging exams and procedure reports are released immediately into your electronic medical record. You may view this report before your referring provider. If you have questions, please contact your health care provider. INDICATION: : Shortness of breath COMPARISON: Chest radiograph on November 20, 2024 and September 03, 2011 TECHNIQUE: One view(s) of the chest FINDINGS: The cardiomediastinal silhouette and pulmonary vasculature are unremarkable. There is no focal airspace consolidation, pleural effusion, or pneumothorax. No displaced fractures. IMPRESSION: No acute cardiopulmonary process. Dictated by Jr Bernabe MD @ 12/08/2024 8:07:09 PM (Electronically Signed)
--- NOTE | 2024-12-08 19:38 | ED.GENADULT ---
HPI - General Adult General Date Seen: 12/08/24 Chief complaint: Allergic Reaction Stated complaint: allergic reaction Time Seen by Provider: 12/08/24 19:18 History of Present Illness HPI narrative: Patient is a 74-year-old male with past medical history of alcohol dependence, COPD, anemia, UTI. He presents by EMS, according to EMS had gotten stung by a bee a couple of weeks ago, has an allergy to bees and so used his epinephrine. Today he apparently felt that the other wrist was somewhat swollen and so he gave himself epinephrine again. He tells me that this was earlier this afternoon, presents the ER at around 7:30 p.m.. When I asked him what prompted him to come to the ER, he says that for the past week and a half he has been feeling fatigued, intermittently short of breath intermittently having chest tightness, intermittently nauseated, does not have any energy. He denies vomiting, diarrhea or bloody stools. His appetite has been decreased. He does drink daily, he says he does not drink a lot but he drinks every day. He lives at home with his daughter. Right now he is not having any chest pain or breathing difficulties. Related Data Home Medications ?Medication ?Instructions ?Recorded ?Confirmed atenolol 50 mg tablet 25 mg PO DAILY 06/24/22 08/05/23 cholecalciferol (vitamin D3) 25 25 mcg PO DAILY 06/24/22 08/06/23 mcg (1,000 unit) capsule duloxetine 60 mg capsule,delayed 90 mg PO DAILY 06/24/22 08/05/23 release folic acid 1 mg tablet 1 mg PO HS 06/24/22 08/06/23 olanzapine 2.5 mg tablet 2.5 mg PO QHS 06/24/22 08/05/23 omeprazole 20 mg capsule,delayed 40 mg PO DAILY PRN 06/24/22 08/06/23 release cyanocobalamin (vitamin B-12) 1,000 mcg PO DAILY 08/05/23 08/05/23 1,000 mcg tablet ferrous gluconate 324 mg (38 mg 324 mg PO Q OTHER DAY 08/05/23 08/05/23 iron) tablet pyridoxine (vitamin B6) 50 mg 25 mg PO DAILY 08/05/23 08/05/23 tablet thiamine mononitrate (vit B1) 100 100 mg PO BID 08/05/23 08/06/23 mg tablet Previous Rx's ?Medication ?Instructions ?Recorded amlodipine 5 mg tablet 2.5 mg (1/2 x 5 mg) PO DAILY #30 08/07/23 tabs cephalexin 500 mg capsule 1,000 mg (2 x 500 mg) PO BID #20 08/07/23 caps cephalexin 500 mg capsule 500 mg PO QID #20 caps 11/20/24 famotidine 20 mg tablet (Pepcid) 20 mg PO DAILY #14 tabs 11/20/24 oxycodone 5 mg tablet 5 mg PO Q6H PRN pain #12 tabs 11/20/24 Allergies Allergy/AdvReac Type Severity Reaction Status Date / Time bee venom protein (honey bee) AdvReac Severe Anaphylaxis Verified 12/08/24 21:14 Review of Systems Status of ROS: Reports: 10 or more systems reviewed and unremarkable except as noted in History and below [facility] Medical History Unsteady gait ?R26.81 - Unsteadiness on feet (ICD-10) History of melena ?Z87.19 - Personal history of other diseases of the digestive system (ICD-10) Angiodysplasia of stomach and duodenum ?K31.819 - Angiodysplasia of stomach and duodenum without bleeding (ICD-10) Dysphagia ?R13.10 - Dysphagia, unspecified (ICD-10) Peripheral neuropathy (09/06/11) ?G62.9 - Polyneuropathy, unspecified (ICD-10) Gastroesophageal reflux (09/06/11) ?K21.9 - Gastro-esophageal reflux disease without esophagitis (ICD-10) Depression (09/06/11) ?F32.A - Depression, unspecified (ICD-10) Benign localized hyperplasia of prostate with urinary obstruction (09/06/11) ?N40.1 - Benign prostatic hyperplasia with lower urinary tract symptoms (ICD-10) ?N13.8 - Other obstructive and reflux uropathy (ICD-10) Ankle fracture (09/06/11) ?S82.899A - Other fracture of unspecified lower leg, initial encounter for closed fracture (ICD-10) Alcohol use disorder ?F10.90 - Alcohol use, unspecified, uncomplicated (ICD-10) Prostate cancer ?C61 - Malignant neoplasm of prostate (ICD-10) Cellulitis of penis (~2012) ?N48.22 - Cellulitis of corpus cavernosum and penis (ICD-10) COPD (chronic obstructive pulmonary disease) ?J44.9 - Chronic obstructive pulmonary disease, unspecified (ICD-10) PTSD (post-traumatic stress disorder) ?F43.10 - Post-traumatic stress disorder, unspecified (ICD-10) Low back pain ?M54.50 - Low back pain, unspecified (ICD-10) Adrenal adenoma ?D35.00 - Benign neoplasm of unspecified adrenal gland (ICD-10) Major depression ?F32.9 - Major depressive disorder, single episode, unspecified (ICD-10) Neuropathy ?G62.9 - Polyneuropathy, unspecified (ICD-10) Surgical History Hx of tonsillectomy ?Z90.89 - Acquired absence of other organs (ICD-10) Status post osteotomy (~1979) ?Z98.890 - Other specified postprocedural states (ICD-10) Hx of colonoscopy (~2010) ?Z98.890 - Other specified postprocedural states (ICD-10) History of ankle surgery (~09/04/11) ?Z98.890 - Other specified postprocedural states (ICD-10) H/O radical prostatectomy ?Z90.79 - Acquired absence of other genital organ(s) (ICD-10) Family History Brother Alcoholism and drug addiction in family Mother Alcoholism and drug addiction in family Throat cancer Sister Obesity Social History Narrative: Lives with younger sister, Elin, in a house. Smokes half a pack of cigarettes per day. Drinks 5-6 twelve-ounce beers per day. Last drank alcohol yesterday. Smokes marijuana 2-3 times a day. Does meth and cocaine every 2-3 months, is adamant that he last did it a week ago and that he does not use opioids. Discussed code status: patient and his sisters agree that he does not want to be intubated, does want resuscitation. What is your current living situation?: I presently have a place to live Problems where you live: no known problems Problems where you live details: na In the past 12 months, utilities in danger of being shut off: no In past 12 months, lack of transportation kept you from medical appts, meetings, work, or getting things needed for daily living: no In the past 12 mos, have been you worried that your food would run out before you had money to buy more?: never true In the past 12 mos, the food you bought just didn't last and you didn't have money to buy more?: never true Highest level of school completed/degree received: high school graduate Smoking Status: Current every day smoker What tobacco products do you use: cigarettes Do you use any of these nicotine containing products: None Second hand tobacco smoke exposure: No How often do you have a drink containing alcohol: 4 or more times a week How many standard drinks containing alcohol do you have on a typical day: 3 or 4 How often do you have six or more drinks on one occasion: Daily or almost daily AUDIT-C Alcohol total score: 9 Non-prescribed substance use: marijuana (any form) Non-prescribed substance use details: daily Caffeine: No How often does anyone, including family, friends and others, physically hurt you: never How often does anyone, including family, friends and others, insult or talk down to you: never How often does anyone, including family, friends and others, threaten you with harm: never How often does anyone, including family, friends and others, scream or curse at you: never service: Yes Exam Narrative: Exam Narrative: Vital signs reviewed In general, alert, nontoxic elderly male. Thin, laying in a darkened room. Head: Normocephalic, atraumatic. Eyes: Sclera mildly injected, no obvious icterus. Pupils equal and reactive. ENT: Mucous membranes dry. Neck: Supple without adenopathy. Heart: Regular rate and rhythm, soft systolic murmur heard best at the right sternal border. Lungs: Clear. No increased work of breathing, crackles or wheezes. Abdomen: Soft, nontender to palpation. No obvious organomegaly. Extremities: Well perfused, pulses intact. No significant edema. There is an area of bruising on his volar wrist on the left, this is apparently where they were concerned about possible recurrence of allergic reaction. He reports no trauma to the area. There are no hives, no erythema. Neurologic: Alert, conversant. Speech fluent, face symmetric. Moves all extremities equally. Skin: Warm, dry well perfused. Affect: Flat. Const: Vital Signs, click to edit/add: Vital Signs - 24 hr 12/08/24 19:20 Temperature 97.7 F Pulse Rate [Right Pulse Oximeter] 54 L Respiratory Rate 16 Blood Pressure [Ri ght Upper Arm] 119/63 Pulse Oximetry 97 Oxygen Delivery Me thod Room Air Course Course ED Course: Patient presents with ostensibly concerns about delayed allergic reaction from a bee sting 2 weeks ago, but on arrival multiple vague symptoms without a clear pattern, these do not seem to necessarily occur together, he says they can happen morning new tonight. Differential diagnosis is broad and would include cardiac etiology such as angina, valvular disease, congestive heart failure, pericardial effusion, metabolic derangement, dehydration, pneumonia, COPD exacerbation, among others. He seems to be neurologically intact today. He is at least in theory on replacement by mean and folate at home. Recently treated with Keflex for urinary tract infection, no complaints of urinary symptoms today, afebrile, unremarkable vital signs. Will check labs, EKG, give him some fluids as he does appear somewhat dry. Labs reviewed, notable for a normal troponin, an elevated D-dimer of 1, mildly increased creatinine at 1.8, up from his baseline. Hemoglobin is 10 which appears to be stable relative to his usual baseline. Blood alcohol is less than 0.01. Lipase mildly elevated at 325. LFTs unremarkable. EKG by my review shows a sinus bradycardia, ventricular rate of 53. No acute ST segment changes, unremarkable T-waves. I do not think this represents acute coronary syndrome, angina not entirely ruled out although there is not a an exertional pattern to this. I did do a CT scan of the chest, PE protocol as well as a CT scan of the abdomen and pelvis. I reviewed these images personally, I did not see evidence of pulmonary embolism or pneumonia, in the abdomen I did not see evidence of pancreatic inflammation or other acute findings. Report by radiologist reviewed, they note changes consistent with bronchitis more lungs but no pulmonary embolism or infiltrate. They note chronic stable renal atrophy right greater than left and bilateral indeterminate adrenal gland lesions which are noted to be unchanged but follow-up is recommended to further characterize. No acute abdominal pelvic process. Reviewed all this with the patient and his family. A clear explanation for his symptoms is not evident tonight, but I do think we have ruled out life-threatening causes. He notes that he is under lot of stress and thinks that may be contributing to some of this. At this point, will discharge home, I recommended primary care follow-up to discuss the adrenal imaging as well as recheck his creatinine. He did have a L of normal saline here tonight. Return any time for acute worsening or new symptoms. Vital Signs Vital signs: Initial Vital Signs Temperature 97.7 F 12/08/24 19:20 Temperature Source Temporal Artery Scan 12/08/24 19:20 Pulse Rate 54 L 12/08/24 19:20 Pulse Rhythm Regular 12/08/24 19:20 Pulse Strength 3+ Normal 12/08/24 19:20 Respiratory Rate 16 12/08/24 19:20 Blood Pressure 119/63 12/08/24 19:20 Blood Pressure Mean 81 12/08/24 19:20 Blood Pressure Position Supine 12/08/24 19:20 Pulse Oximetry 97 12/08/24 19:20 Oxygen Delivery Method Room Air 12/08/24 19:20 Vital Signs Temperature 97.7 F 12/08/24 19:20 Pulse Rate 54 L 12/08/24 19:20 Respiratory Rate 16 12/08/24 19:20 Blood Pressure 119/63 12/08/24 19:20 Pulse Oximetry 97 12/08/24 19:20 Oxygen Delivery Method Room Air 12/08/24 19:20 Temperature 97.7 F 12/08/24 19:20 Pulse Rate 54 L 12/08/24 19:20 Respiratory Rate 16 12/08/24 19:20 Blood Pressure 119/63 12/08/24 19:20 Pulse Oximetry 97 12/08/24 19:20 Oxygen Delivery Method Room Air 12/08/24 19:20 Medications Administered Medications: Discontinued Medications Generic Name Dose Route Start Last Admin Trade Name Freq PRN Reason Stop Dose Admin Sodium Chloride 1,000 mls @ 1,000 mls/hr 12/08/24 19:45 12/08/24 21:44 0.9 % Sodium Chloride 1000 Ml IV 12/08/24 20:44 Infused .Q1H CINTIA Infusion Medical Decision Making Lab Data Lab results reviewed: Yes I reviewed the patient's lab results Labs: Lab Results 12/08/24 12/08/24 Range/Units 19:36 20:04 WBC 8.61 (4.50-11.00) K/uL RBC 3.16 L (4.30-5.90) m/uL Hgb 10.1 L (13.5-17.5) gm/dL Hct 31.1 L (37.0-53.0) % MCV 98 (80-100) fL MCH 32 (26-34) pg MCHC 33 (32-36) gm/dL RDW Coeff of Nancy 14.4 (11.5-15.5) % Plt Count 228 (140-440) K/uL Neut % (Auto) 79.4 H (42.0-72.0) % Lymph % (Auto) 12.0 L (20-44) % [place] % (Auto) 5.9 (0.0-11.0) % Eos % (Auto) 1.4 (0.0-7.0) % Baso % (Auto) 0.3 (0.0-3.0) % Neut # (Auto) 6.80 (1.7-7.0) K/uL Lymph # (Auto) 1.00 (0.90-2.90) K/uL [place] # (Auto) 0.50 (0.00-0.90) K/UL Eos # (Auto) 0.12 (0.00-0.50) K/uL Baso # (Auto) 0.03 (0.00-0.30) K/uL Abs Immat Gran (auto) 0.09 (0.00-0.30) K/uL Imm/Tot Granulo (auto) 1.0 % D-Dimer Quant (PE/DVT) 1.02 H (0.00-0.50) ug/ml Sodium 134 L (135-149) mmol/L Potassium 3.2 L (3.6-5.1) mmol/L Chloride 100 (96-114) mmol/L Carbon Dioxide 28 (20-32) mmol/L Anion Gap 6 L (7-15) mEq/L BUN 14 (7-30) mg/dL Creatinine 1.8 H (0.5-1.5) mg/dL Estimated Creat Clear 34.00 Estimated GFR 39 ml/min Glucose 97 (60-115) mg/dL Lactate 1.8 (0.5-1.9) mmol/L Calcium 8.2 L (8.4-10.6) mg/dL Magnesium 1.8 (1.5-2.6) mg/dL Total Bilirubin 0.2 (0.1-1.5) mg/dL Direct Bilirubin 0.2 (0.0-0.5) mg/dL AST 23 (12-35) U/L ALT 9 (4-50) U/L Alkaline Phosphatase 90 (40-150) U/L Total Protein 6.0 (6.0-8.3) g/dL Albumin 3.3 (3.3-5.0) g/dL Lipase 325 H (23-300) U/L TSH 0.371 (0.270-4.200) uIU/mL Ethyl Alcohol < 0.01 (0.01-0.03) % SARS-CoV-2 (PCR) Negative SARS-CoV-2 (Negative) Influenza Type A (PCR) Negative PCR FLU A (Negative) Influenza Type B (PCR) Negative PCR FLU B (Negative) RSV (PCR) Negative PCR RSV (Negative) POC Troponin I 0.01 (0.01-0.04) ng/ml Imaging Data Chest x-ray: Attestation: I have reviewed the pertinent imaging results. Radiologist's impression: Patient: Frances Gage MR#: [id number] : 1950 Acct:[id number] Loc: ED Service Date: 12/08/[address]: Ordering Physician: Ifrah Vazquez M.D. Date of Service: 12/08/24 Procedure(s): XR chest 1V portable Accession Number(s): [id number] cc: Ifrah Vazquez M.D.; Provider,Not a Local~ For Patients: As a result of the Century Cures Act, medical imaging exams and procedure reports are released immediately into your electronic medical record. You may view this report before your referring provider. If you have questions, please contact your health care provider. INDICATION: : Shortness of breath COMPARISON: Chest radiograph on November 20, 2024 and September 03, 2011 TECHNIQUE: One view(s) of the chest FINDINGS: The cardiomediastinal silhouette and pulmonary vasculature are unremarkable. There is no focal airspace consolidation, pleural effusion, or pneumothorax. No displaced fractures. IMPRESSION: No acute cardiopulmonary process. Dictated by Jr Bernabe MD @ 12/08/2024 8:07:[address] Chest/Ab/Pelvis: Attestation: I have reviewed the pertinent imaging results. Radiologist's impression: Patient: FRANCES GAGE Facility: [facility] Site . Site : 1950 Study: CT-Abdomen/Pelvis 95CC ISOVUE 370-12/08/2024 9:23:47 PM Ordering Physician: Taylor Rg Final Report: Indication: Alcohol dependence, elevated lipase, nausea, elevated D-dimer Technique: CTA of the chest with contrast and postcontrast CT of the abdomen and pelvis with multiplanar reformats following 95 mL Isovue 370 IV. Axial MIP images of the chest obtained. Comparison: CT abdomen and pelvis performed 11/20/2024 Findings: Chest: Pulmonary arteries: No pulmonary embolism appreciated. Lungs: No consolidation. No effusion. No pneumothorax. Basilar prominent scarring and/or atelectasis. Bronchial wall thickening noted. Mediastinum: No acute abnormality appreciated. Calcified coronary arterial and aortic atherosclerosis. Lymph nodes: Prominent and mildly enlarged hilar and mediastinal nodes. Right hilar node measures 10 millimeters. Right paratracheal node measures 12 millimeters. Soft tissues: No acute abnormality appreciated. Bones: No acute abnormality appreciated. Degenerative changes of the spine and shoulders. Abdomen and Pelvis: Hepatobiliary: No significant parenchymal abnormality is appreciated. Spleen: Unremarkable. Pancreas: No acute abnormality appreciated. Adrenal glands: Bilateral indeterminate density adrenal gland lesions measuring 2.6 centimeters in the right and 2.5 centimeters on the left, unchanged. Kidneys: Severe right and moderate left renal atrophy, unchanged. No acute abnormality appreciated. Bowel: No obstruction. No focal perienteric or pericolonic stranding is appreciated. The appendix is visualized and appears unremarkable. Vascular: No acute abnormality appreciated. Calcified and noncalcified atherosclerosis. Lymph nodes: Postsurgical changes. No gross lymphadenopathy. Peritoneum: No free air. No free fluid. : Postsurgical changes from hardware. No acute abnormality appreciated. Soft tissues: No acute abnormality appreciated. Bones: No acute fracture. No lytic or blastic lesion. Degenerative changes of the spine and pelvis. Impression: 1. Bronchial wall thickening and hilar and mediastinal lymphadenopathy noted. Question COPD exacerbation and reactive nodes. No organized consolidation or pulmonary embolism is appreciated. 2. No acute abdominopelvic process detected. 3. Indeterminate density adrenal gland nodules measuring up to 2.6 centimeters. Nonemergent outpatient adrenal protocol MRI or CT recommended for further characterization Discharge Plan Discharge Clinical Impression: Weakness, Bronchitis Patient Disposition: Home, Self-Care Condition: Stable Instructions: Acute Bronchitis (ED), Weakness (ED) Additional Instructions: I have prescribed prednisone to help with bronchitis/shortness of breath. I have also prescribed Zofran, which is a nausea medicine you can use if needed. I would recommend follow-up with your primary doctor in the next week for recheck; overall your labs look good tonight, you are mildly anemic but appear to be your baseline. Your kidney function was slightly off tonight, which may be simply related to hydration, but should be followed up with primary care. Your CT scans did not show any evidence of pneumonia, pancreatitis, blood clots, or other acute findings. Radiologist does note that you have a couple of nonspecific adrenal nodules. This is an incidental finding, but they recommend a nonemergent outpatient MRI or CT to get a better look at these. You can talk with your primary doctor about this as well. Return to the ER at any time if you have significant worsening, new symptoms such as fevers, vomiting, significant shortness of breath or chest pain, or other new problems. Prescriptions: No Action duloxetine 60 mg capsule,delayed release(DR/EC) 90 mg PO DAILY folic acid 1 mg tablet 1 mg PO HS atenolol 50 mg tablet 25 mg PO DAILY omeprazole 20 mg capsule,delayed release(DR/EC) 40 mg PO DAILY PRN cholecalciferol (vitamin D3) 25 mcg (1,000 unit) capsule 25 mcg PO DAILY olanzapine 2.5 mg tablet 2.5 mg PO QHS cephalexin 500 mg capsule 500 mg PO QID Qty: 20 0RF oxycodone 5 mg tablet 5 mg PO Q6H PRN (Reason: pain) Qty: 12 0RF famotidine [Pepcid] 20 mg tablet 20 mg PO DAILY Qty: 14 1RF cyanocobalamin (vitamin B-12) 1,000 mcg tablet 1,000 mcg PO DAILY pyridoxine (vitamin B6) 50 mg tablet 25 mg PO DAILY thiamine mononitrate (vit B1) 100 mg tablet 100 mg PO BID ferrous gluconate 324 mg (38 mg iron) tablet 324 mg PO Q OTHER DAY amlodipine 5 mg Tablet 2.5 mg PO DAILY Qty: 30 0RF cephalexin 500 mg capsule 1,000 mg PO BID Qty: 20 0RF Follow Up/Referrals: Provider,Not a Local [Primary Care Provider, Family Practice] Stand Alone [facility]: [facility] Inst[facility]
[2024-12-08 20:16] LABS: Lactate Sepsis w/Reflex* 1.8 mmol/L (0.5-1.9)
[2024-12-08 20:25] LABS: Troponin, Point-of-Care* 0.01 ng/ml (0.01-0.04)
[2024-12-08 20:26] LABS: Hematocrit* 31.1 % (37.0-53.0); Hemoglobin* 10.1 gm/dL (13.5-17.5); Immature Granulocytes Abs Auto 0.09 K/uL (0.00-0.30); Immature Granulocytes Pct Auto 1.0 %; Mean Corpuscular HGB Conc 33 gm/dL (32-36); Mean Corpuscular Hemoglobin 32 pg (26-34); Mean Corpuscular Volume 98 fL (80-100); RDW Coefficient of Variation % 14.4 % (11.5-15.5); Red Blood Count* 3.16 m/uL (4.30-5.90); White Blood Count* 8.61 K/uL (4.50-11.00)
[2024-12-08 20:36] LABS: Lymphocytes Absolute Auto 1.00 K/uL (0.90-2.90); Slide Review Reflex No
[2024-12-08 20:43] LABS: Albumin* 3.3 g/dL (3.3-5.0); Chloride* 100 mmol/L (96-114); Sodium* 134 mmol/L (135-149)
[2024-12-08 20:44] LABS: Potassium* 3.2 mmol/L (3.6-5.1)
[2024-12-08 20:46] LABS: Alanine Aminotransferase* 9 U/L (4-50); Alkaline Phosphatase* 90 U/L (40-150); Anion Gap 6 mEq/L (7-15); Aspartate Amino Transferase* 23 U/L (12-35); Bilirubin Direct* 0.2 mg/dL (0.0-0.5); Bilirubin Total* 0.2 mg/dL (0.1-1.5); Blood Urea Nitrogen* 14 mg/dL (7-30); Calcium* 8.2 mg/dL (8.4-10.6); Carbon Dioxide* 28 mmol/L (20-32); Creatinine* 1.8 mg/dL (0.5-1.5); D Dimer Quantitative* 1.02 ug/ml (0.00-0.50); Est. Creatinine Clearance* 34.00; Estimated Glomerular Filt Rate 39 ml/min; Glucose* 97 mg/dL (60-115); Total Protein* 6.0 g/dL (6.0-8.3)
[2024-12-08 20:55] LABS: Ethanol* < 0.01 % (0.01-0.03)
[2024-12-08 20:58] LABS: PCR FLU A Negative PCR FLU A (Negative); PCR FLU B Negative PCR FLU B (Negative); PCR RSV Negative PCR RSV (Negative); SARS PCR* Negative SARS-CoV-2 (Negative)
--- NOTE | 2024-12-08 20:58 | CRLHL7_ITS ---
For Patients: As a result of the Century Cures Act, medical imaging exams and procedure reports are released immediately into your electronic medical record. You may view this report before your referring provider. If you have questions, please contact your health care provider. Indication: Alcohol dependence, elevated lipase, nausea, elevated D-dimer Technique: CTA of the chest with contrast and postcontrast CT of the abdomen and pelvis with multiplanar reformats following 95 mL Isovue 370 IV. Axial MIP images of the chest obtained. Comparison: CT abdomen and pelvis performed 11/20/2024 Findings: Chest: Pulmonary arteries: No pulmonary embolism appreciated. Lungs: No consolidation. No effusion. No pneumothorax. Basilar prominent scarring and/or atelectasis. Bronchial wall thickening noted. Mediastinum: No acute abnormality appreciated. Calcified coronary arterial and aortic atherosclerosis. Lymph nodes: Prominent and mildly enlarged hilar and mediastinal nodes. Right hilar node measures 10 millimeters. Right paratracheal node measures 12 millimeters. Soft tissues: No acute abnormality appreciated. Bones: No acute abnormality appreciated. Degenerative changes of the spine and shoulders. Abdomen and Pelvis: Hepatobiliary: No significant parenchymal abnormality is appreciated. Spleen: Unremarkable. Pancreas: No acute abnormality appreciated. Adrenal glands: Bilateral indeterminate density adrenal gland lesions measuring 2.6 centimeters in the right and 2.5 centimeters on the left, unchanged. Kidneys: Severe right and moderate left renal atrophy, unchanged. No acute abnormality appreciated. Bowel: No obstruction. No focal perienteric or pericolonic stranding is appreciated. The appendix is visualized and appears unremarkable. Vascular: No acute abnormality appreciated. Calcified and noncalcified atherosclerosis. Lymph nodes: Postsurgical changes. No gross lymphadenopathy. Peritoneum: No free air. No free fluid. : Postsurgical changes from hardware. No acute abnormality appreciated. Soft tissues: No acute abnormality appreciated. Bones: No acute fracture. No lytic or blastic lesion. Degenerative changes of the spine and pelvis. Impression: 1. Bronchial wall thickening and hilar and mediastinal lymphadenopathy noted. Question COPD exacerbation and reactive nodes. No organized consolidation or pulmonary embolism is appreciated. 2. No acute abdominopelvic process detected. 3. Indeterminate density adrenal gland nodules measuring up to 2.6 centimeters. Nonemergent outpatient adrenal protocol MRI or CT recommended for further characterization. Please note that all CT scans at this facility use dose modulation, iterative reconstruction, and/or weight-based dosing when appropriate to reduce radiation dose to as low as reasonably achievable. Dictated by Chago Chavez MD @ 12/08/2024 9:43:43 PM (Electronically Signed)
[2024-12-08 21:34] LABS: TSH With Reflex to FT4* 0.371 uIU/mL (0.270-4.200)
== END 2024-12-08 22:34 | disposition home or self-care (01) ==
PROVIDERS: Emergency Provider Emergency Medicine
DX: R53.1 Weakness (principal); J20.9 Acute bronchitis, unspecified
CPT/HCPCS: 36415; 71045; 71275; 74177; 80048; 80076; 82077; 83605; 83690; 83735; 84443; 84484; 85025; 85379; 87631; 93005; 96360; 99284; 99285; J7030; Q9967